=== PATIENT | male | born 1965 | race Two or more races ===

== ENCOUNTER 2019-12-07 11:12 | Outpatient (REF) | payer MEDICAID, SELFPAY ==
[2019-12-07 11:56] LABS: MANUAL DIFF FLAG NO
[2019-12-07 12:07] LABS: Basophils Absolute Auto 0.1 X10*3/uL (0.0-0.2); Basophils Percent Auto 0.5 % (0-2); Eosinophils Absolute Auto 0.2 X10*3/uL (0.0-0.4); Eosinophils Percent Auto 2.2 % (0-4); Hematocrit 32.7 % (42-52); Hemoglobin 10.1 g/dl (14.0-18.0); Imm Gran Abs Auto 0.03 X10*3/uL (0.00-0.03); Imm Gran Pct Auto 0.3 % (0.0-0.4); Lymphocytes Absolute Auto 2.4 X10*3/uL (1.2-4.9); Lymphocytes Percent Auto 21.6 % (20-40); Mean Corpuscular HGB Conc 30.9 g/dl (31.0-36.0); Mean Corpuscular Hemoglobin 25.3 pg (27.0-33.0); Mean Platelet Volume 10.7 fL (9.4-12.4); Monocytes Absolute Auto 0.7 X10*3/uL (0.1-1.2); Monocytes Percent Auto 6.3 % (2-11); Neutrophils Absolute Auto 7.5 X10*3/uL (2.0-8.3); Neutrophils Percent Auto 69.1 % (45-73); Platelet Count 385 X10*3/uL (160-400); Red Blood Count 3.99 X10*6/uL (4.60-5.80); Red Cell Distribution Width 14.7 % (11.0-16.0); White Blood Count 10.9 X10*3/uL (4.8-10.8)
[2019-12-07 12:08] LABS: Estimated Average Glucose 154 mg/dL
[2019-12-07 12:29] LABS: Alanine Aminotransferase 13 U/L (0-40); Albumin Level 4.3 g/dL (3.5-5.0); Alkaline Phosphatase 99 U/L (39-117); Anion Gap 14 (12-20); Aspartate Amino Transferase 14 U/L (5-37); Bilirubin Direct < 0.2 mg/dL (0.0-0.5); Bilirubin Total 0.5 mg/dL (0.0-1.0); Blood Urea Nitrogen 22 mg/dL (9-16); Calcium 9.2 mg/dL (8.4-10.2); Carbon Dioxide 26 mmol/L (22-29); Chloride 103 mmol/L (96-108); Cholesterol 198 mg/dL; Estimated Glomerular Filt Rate 41; Glucose Random 119 mg/dL (60-115); HDL Cholesterol 36 mg/dL; LDL Cholesterol Calculated 130 mg/dl; Potassium 4.3 mmol/l (3.3-5.1); Sodium 139 mmol/L (135-145); Total Protein 7.6 g/dL (6.5-8.0); Triglycerides 160 mg/dL
== END 2019-12-07 11:13 | disposition home or self-care (01) ==
LOC: HO.LAB 11:12
PROVIDERS: PCP Internal Medicine; Visit Provider Internal Medicine
DX: E11.9 Type 2 diabetes mellitus without complications (principal)
CPT/HCPCS: 36415; 80048; 80061; 80076; 83036; 85025

== ENCOUNTER → 2019-12-14 10:07 | Outpatient (BNVA) | payer MEDICAID, SELFPAY | PROVIDERS: PCP Internal Medicine; Visit Provider Nurse Practitioner Gerontology | DX: E11.65 Type 2 diabetes mellitus with hyperglycemia (principal); E11.319 Type 2 diabetes mellitus with unspecified diabetic retinopathy without macular edema; Z79.4 Long term (current) use of insulin; E78.5 Hyperlipidemia, unspecified; I10 Essential (primary) hypertension; E04.9 Nontoxic goiter, unspecified; E66.01 Morbid (severe) obesity due to excess calories; Z68.41 Body mass index [BMI] 40.0-44.9, adult | CPT/HCPCS: 82947; 99212 ==

== ENCOUNTER 2019-12-14 11:52 | Outpatient (REF) | payer MEDICAID, SELFPAY ==
[2019-12-14 15:00] LABS: Free T4 (Free Thyroxine) 0.82 ng/dL (0.71-1.85)
[2019-12-15 17:51] LABS: Thyroglobulin Antibodies <1 IU/mL (< or = 1); Thyroid Peroxidase Antibodies 1 IU/mL (<9)
== END 2019-12-14 11:53 | disposition home or self-care (01) ==
LOC: HO.10HDL 11:52
PROVIDERS: Visit Provider Nurse Practitioner Gerontology
DX: E04.9 Nontoxic goiter, unspecified (principal)
CPT/HCPCS: 36415; 84439; 84443; 86376; 86800

== ENCOUNTER → 2020-01-25 09:56 | Outpatient (BNVA) | payer MEDICAID, SELFPAY | PROVIDERS: PCP Internal Medicine; Visit Provider Nurse Practitioner | DX: Z76.89 Persons encountering health services in other specified circumstances (principal) ==

== ENCOUNTER → 2020-03-21 14:24 | Outpatient (BNVA) | payer MEDICAID, SELFPAY | PROVIDERS: PCP Internal Medicine; Visit Provider Nurse Practitioner ==

== ENCOUNTER → 2020-03-22 09:50 | Outpatient (BNVA) | payer MEDICAID, SELFPAY | PROVIDERS: PCP Internal Medicine; Visit Provider Nurse Practitioner Gerontology ==

== ENCOUNTER 2020-04-08 11:14 | Emergency (ER) | payer MEDICAID, SELFPAY ==
--- NOTE | ~2020-04-08 | XR_ITS ---
EXAMINATION: XR KNEE, RIGHT CLINICAL INFORMATION: Pain COMPARISON: Previous x-ray most recent March 2018 TECHNIQUE: Four views of the right knee. FINDINGS: There is a 3 component right knee replacement. There may be slight depression of the medial tibial component. There is cortical thickening and periosteal reaction of the medial tibial metaphysis that is slightly increased from previous exam. There is an old healed fracture of the right proximal fibular shaft that is unchanged. There is no appreciable joint effusion. XR/XR knee RT 4V IMPRESSION: Right knee replacement. There may be slight interval increase in depression of the medial tibia compared to previous exam. There is cortical thickening and periosteal reaction of the medial tibial metaphysis that is increased. Old healed fracture of the proximal fibular shaft that is unchanged.
[2020-04-08 11:29] VITALS: BP 140/76; PULSE 89; RESP 17; TEMP 36.7; O2SAT 95; BMI 34.0
--- NOTE | 2020-04-08 12:02 | ED.LOWEXIN ---
HPI - Extremity Injury (Lower) General Chief Complaint: Extremity Injury, Lower Stated Complaint: rt knee pain Time Seen by Provider: 04/08/20 11:27 History of Present Illness HPI Narrative: Patient complains of pain in the right knee that has been worsening steadily over the last several weeks and now it is waking him up at night and is severe, he has history of right knee replacement which was not successful so he has had pain in that knee for many months, no new injury no redness no swelling no fever, pain is moderate Related Data Home Medications Medication Instructions Recorded Confirmed albuterol (refill) 90 mcg INHALATION 12/14/19 03/22/20 mcg/actuation aerosol inhaler albuterol sulfate 2.5 mg INHALATION QID 12/14/19 03/22/20 amlodipine 10 mg tablet 10 mg PO DAILY 12/14/19 03/22/20 atorvastatin 20 mg tablet 20 mg PO DAILY 12/14/19 03/22/20 carvedilol 25 mg tablet 25 mg PO BID 12/14/19 03/22/20 chlorthalidone 25 mg tablet 25 mg PO DAILY 12/14/19 03/22/20 duloxetine 60 mg capsule,delayed 60 mg PO DAILY 12/14/19 03/22/20 release ergocalciferol (vitamin D2) 50,000 50,000 unit PO .weekly tab 12/14/19 03/22/20 unit tablet furosemide 20 mg tablet 20 mg PO DAILY 12/14/19 03/22/20 gabapentin 100 mg capsule 100 mg PO DAILY 12/14/19 03/22/20 lancets 33 gauge #100 ea 12/14/19 03/22/20 lisinopril 10 mg tablet 10 mg PO DAILY 12/14/19 03/22/20 loratadine 10 mg capsule 10 mg PO DAILY 12/14/19 03/22/20 prazosin 2 mg capsule 2 mg PO BID 12/14/19 03/22/20 quetiapine 300 mg tablet,extended 300 mg PO DAILY 12/14/19 03/22/20 release 24 hr rivaroxaban 2.5 mg tablet 2.5 mg PO BID 12/14/19 03/22/20 topiramate 50 mg tablet 50 mg PO BID 12/14/19 03/22/20 trazodone 150 mg tablet 150 mg PO DAILY 11/05/20 02/12/21 acetaminophen 500 mg tablet 500 mg PO Q6H PRN 03/22/20 03/22/20 oxycodone 5 mg capsule 5 mg PO BID PRN 03/22/20 03/22/20 Previous Rx's Medication Instructions Recorded simethicone 180 mg capsule 180 mg PO QID 30 Days #120 cap 01/25/20 calcium carb 800 mg-magnes hydrox 10 ml PO TID PRN #355 ml 03/21/20 270 mg-simeth 80 mg/10 mL oral susp pantoprazole 20 mg tablet,delayed 20 mg PO DAILY 30 Days #30 tab 03/21/20 release plecanatide 3 mg tablet 3 mg PO DAILY #30 tab 03/21/20 dulaglutide 1.5 mg/0.5 mL 1.5 mg SUBCUT QWEEK 28 Days #2 ml 03/26/20 subcutaneous pen injector insulin glargine 100 unit/mL (3 45 unit SUBCUT QAM #15 ml 03/28/20 mL) subcutaneous pen oxycodone 5 mg PO Q6H PRN #14 cap 04/08/20 Allergies Allergy/AdvReac Type Severity Reaction Status Date / Time shellfish derived Allergy Severe SWOLLEN Verified 04/08/20 11:32 THROAT egg [Egg] Allergy Intermediate HIVES Verified 04/08/20 11:32 lisinopril [Lisinopril] Allergy Mild UNKNOWN Verified 04/08/20 11:32 nifedipine [From Procardia] Allergy Mild UNKNOWN Verified 04/08/20 11:32 Penicillins Allergy Mild RASH Verified 04/08/20 11:32 apple [Apple] Allergy Unknown SWELLING Verified 04/08/20 11:32 influenza virus vaccine, Allergy Unknown SWELLING Verified 04/08/20 11:32 specific [Influenza Virus Vacc,Specific] Review of Systems Review of Systems: Positive for right knee pain negatives are fevers chills dizziness weakness chest pain shortness of breath there is no calf pain no leg swelling no calf swelling no numbness no weakness no rash PMFSH Past Medical History Source: nursing notes reviewed Medical History Angina of effort Asthma Blind right eye Cancer of eye CHF (congestive heart failure) Chronic kidney disease, stage 3 Essential hypertension GERD (gastroesophageal reflux disease) Hemiparesis affecting left side as late effect of cerebrovascular accident Hemiplegia affecting dominant side History of poliomyelitis Hyperlipidemia LDL goal <70 Left ventricular hypertrophy Mood disorder Morbid obesity Nasal polyps Obesity due to excess calories ARTEM (obstructive sleep apnea) Other pulmonary embolism and infarction Positive PPD Syncope Type 2 diabetes mellitus with hyperglycemia, with long-term current use of insulin Type 2 diabetes mellitus with polyneuropathy Surgical History History of cardiac catheterization History of coronary artery stent placement History of esophagogastroduodenoscopy (EGD) Hx of knee surgery Family History Family History Father Stroke Brain cancer CVD (cardiovascular disease) Diabetes Mother Diabetes Social History Social History 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 Alcohol intake: current Alcohol intake frequency: does not drink Smoking Status: Never smoker Advance Directives: No Advance Directives Information Provided: No Physical Exam Vital Signs: Vital Signs: Last Vital Signs Temp 98.0 F 04/08/20 11:29 Pulse 89 04/08/20 11:29 Resp 17 04/08/20 11:29 BP 140/76 H 04/08/20 11:29 Pulse Ox 95 04/08/20 11:29 Body Mass Index 34.0 General appearance no distress Head is normocephalic atraumatic The neck is supple Respiratory no distress Right knee is normal color, it extends to 188 flexes to about 90 there is no obvious swelling there is no redness or warmth there is no obvious effusion, it is neurovascular intact, there is no calf tenderness or swelling no posterior leg tenderness, neurovascular intact distal Skin is no rash Neuro no focal deficits Course Course Course Narrative: X-ray of right knee is reviewed with no acute findings, patient is advised to follow with orthopedics for re-evaluation of right knee replacement Discharge Plan Discharge Clinical Impression: Arthralgia of right knee Patient Disposition: Home, Self-Care Additional Instructions: Follow with orthopedist and her doctor for further evaluation, and to discuss possible referral to pain management for control of chronic knee pain Return any time any worse condition or concerns It is safe to take 2 oxycodone if 1 does not relieve pain Prescriptions: New oxycodone 5 mg capsule 5 mg PO Q6H PRN (Reason: pain) Qty: 14 RF: 0 No Action Trulicity 1.5 mg/0.5 mL pen injector 1.5 mg subcut QWEEK 28 Days Qty: 2 RF: 5 insulin glargine [Lantus Solostar U-100 Insulin] 100 unit/mL (3 mL) insulin pen 45 unit subcut QAM Qty: 15 RF: 4 loratadine 10 mg capsule 10 mg PO DAILY RF: 0 topiramate 50 mg tablet 50 mg PO BID RF: 0 quetiapine 300 mg tablet extended release 24 hr 300 mg PO DAILY RF: 0 duloxetine 60 mg capsule,delayed release(DR/EC) 60 mg PO DAILY RF: 0 Xarelto 2.5 mg tablet 2.5 mg PO BID RF: 0 (DME) lancets [TRUEplus Lancets] 33 gauge misc See Rx Instructions .ROUTE .MEDSUPPLY Qty: 100 RF: 0 atorvastatin 20 mg tablet 20 mg PO DAILY RF: 0 ergocalciferol (vitamin D2) 50,000 unit tablet 50,000 unit PO .weekly RF: 0 furosemide 20 mg tablet 20 mg PO DAILY RF: 0 gabapentin 100 mg capsule 100 mg PO DAILY RF: 0 lisinopril 10 mg tablet 10 mg PO DAILY RF: 0 carvedilol 25 mg tablet 25 mg PO BID RF: 0 amlodipine 10 mg tablet 10 mg PO DAILY RF: 0 chlorthalidone 25 mg tablet 25 mg PO DAILY RF: 0 trazodone 150 mg tablet 150 mg PO DAILY RF: 0 albuterol (refill) 90 mcg/actuation aerosol inhalation RF: 0 albuterol sulfate 2.5 mg /3 mL (0.083 %) solution for nebulization 2.5 mg inhalation QID RF: 0 prazosin 2 mg capsule 2 mg PO BID RF: 0 oxycodone 5 mg capsule 5 mg PO BID PRNRF: 0 acetaminophen [Tylenol Extra Strength] 500 mg tablet 500 mg PO Q6H PRNRF: 0 simethicone 180 mg capsule 180 mg PO QID 30 Days Qty: 120 RF: 3 pantoprazole 20 mg tablet,delayed release (DR/EC) 20 mg PO DAILY 30 Days Qty: 30 RF: 6 Trulance 3 mg tablet 3 mg PO DAILY Qty: 30 RF: 6 Mylanta Tonight 800-270-80 mg/10 mL suspension 10 ml PO TID PRN (Reason: stomach upset) Qty: 355 RF: 6 Interventions: ED Discharge Assessment Last Done: 04/08/20 12:37 Discharge Date/Time: 04/08/20 12:38
== END 2020-04-08 12:38 | disposition home or self-care (01) ==
PROVIDERS: Emergency Provider Emergency Medicine; PCP Internal Medicine
DX: M25.561 Pain in right knee (principal); E11.22 Type 2 diabetes mellitus with diabetic chronic kidney disease; I13.0 Hypertensive heart and chronic kidney disease with heart failure and stage 1 through stage 4 chronic kidney disease, or unspecified chronic kidney disease; N18.30 Chronic kidney disease, stage 3 unspecified; I50.9 Heart failure, unspecified; Z96.651 Presence of right artificial knee joint; Z79.4 Long term (current) use of insulin
CPT/HCPCS: 73564; 99283

== ENCOUNTER 2020-04-17 16:27 | Outpatient (REF) | payer MEDICAID, SELFPAY ==
--- NOTE | ~2020-04-17 | US_ITS ---
EXAMINATION: US VENOUS ULTRASOUND WITH DOPPLER LOWER EXTREMITY, RIGHT CLINICAL INFORMATION: Right lower extremity edema and pain COMPARISON: None TECHNIQUE: Ultrasound of the deep veins is performed from the hip to the calf with compression sonography and color and pulse Doppler assessment. Spectral analysis with color-flow imaging is performed. FINDINGS: There is normal venous compression and respiratory variation and augmented flow. The visualized common femoral vein, superficial femoral vein, profunda femoral vein, popliteal vein, and the trifurcation region shows no evidence of deep venous thrombosis. There is no significant popliteal fossa cyst. The contralateral left common femoral vein appears normal. If the patient's symptoms persist, followup ultrasound in 5 days 7 days might be of value to exclude proximal propagation from a non-visualized calf vein. US/US venous duplex LE RT IMPRESSION: No DVT demonstrated in the right lower extremity.
== END 2020-04-17 16:28 | disposition home or self-care (01) ==
LOC: HO.US 16:27
PROVIDERS: Visit Provider Internal Medicine
DX: M79.661 Pain in right lower leg (principal)
CPT/HCPCS: 93971

== ENCOUNTER 2020-04-22 10:37 | Outpatient (REF) | payer MEDICAID, SELFPAY ==
--- NOTE | ~2020-04-22 | US_ITS ---
EXAMINATION: US THYROID CLINICAL INFORMATION: Nontoxic goiter, unspecified. COMPARISON: None TECHNIQUE: Linear transducer mcintyre-scale and color Doppler examination with attention to the region of the thyroid. FINDINGS: SIZE: Thyroid is normal in size and symmetric. Measurements of the thyroid lobes and nodules are given in sagittal, anteroposterior and transverse dimensions respectively. Right Thyroid Lobe: 5.8 x 1.3 x 1.9 cm, volume 7.2 mL. Parenchyma: The gland echotexture is homogeneous. Thyroid vascularity is normal. Left Thyroid Lobe: 5.3 x 1.4 x 1.7 cm, volume 6.4 mL. Parenchyma: The gland echotexture is homogeneous. Thyroid vascularity is normal. Isthmus: 0.3 cm in maximum AP dimension. Estimated total number of nodules greater than or equal to 1 cm: 1. Dry Sand Molder nodules are described as follows: 1. Location: Isthmus. Size: 1.1 x 0.6 x 0.8 cm, volume 0.3 mL. Nodule characteristics: Composition: Solid (2). Echogenicity: Hypoechoic (2). Shape: Not taller than wide (0). Margins: Smooth (0). Echogenic Foci: None (0). ACR TI-RADS total points: 4 ACR TI-RADS category: 4 NODES: No lymphadenopathy is seen in the tissue surrounding the thyroid gland. US/US thyroid IMPRESSION: 1. Solitary nodule isthmus 1.1 cm, TI-RADS Category 4. 2. Recommend follow-up ultrasound in 12 months. ACR TI-RADS RECOMMENDATION REFERENCE: Ultrasound-guided fine-needle aspiration, followup ultrasound, no further follow up. * TR1 (0 point) and TR 2 (2 points): No FNA or follow up * TR3 (3 points): FNA if more than or equal to 2.5 cm in maximum dimension, followup ultrasound in 1, 3 and 5 years if 1.5 to 2.4 cm in maximum dimension. * TR4 (4-6 points): FNA if more than or equal to 1.5 cm in maximum dimension, followup ultrasound in 1, 2, 3 and 5 years if 1 to 1.4 cm in maximum dimension. * TR5 (more than or equal to 7 points): FNA if more than or equal to 1 cm in maximum dimension, followup ultrasound every year for 5 years if 0.5 to 0.9 cm in maximum dimension. * TR3, TR4 or TR5 nodules that are below the size threshold for follow up receive no follow up.
== END 2020-04-22 10:38 | disposition home or self-care (01) ==
LOC: HO.US 10:37
PROVIDERS: PCP Internal Medicine; Visit Provider Nurse Practitioner Gerontology
DX: E04.9 Nontoxic goiter, unspecified (principal)
CPT/HCPCS: 76536

== ENCOUNTER 2020-05-02 08:08 | Outpatient (REF) | payer MEDICAID, SELFPAY ==
--- NOTE | ~2020-05-02 | XR_ITS ---
EXAMINATION: XR KNEE AP STANDING CLINICAL INFORMATION: Knee pain COMPARISON: 04/08/2020 of the right knee TECHNIQUE: Single AP standing views of both knees FINDINGS: There is degenerative change of the lateral joint space compartment of the left knee with some marginal spurring. Patient status post right total knee arthroplasty. Prosthetic components appear in good position. No evidence of loosening on the provided image. Deformity from previous proximal right fibular fracture evident. XR/XR knee standing BI IMPRESSION: Degenerative change of the left knee lateral joint space compartment. Status post right total knee arthroplasty without significant abnormality appreciated.
== END 2020-05-02 08:09 | disposition home or self-care (01) ==
LOC: HO.HOSX 08:08
PROVIDERS: Visit Provider Orthopaedic Surgery
DX: G89.29 Other chronic pain (principal); R53.1 Weakness; E11.42 Type 2 diabetes mellitus with diabetic polyneuropathy; Z96.651 Presence of right artificial knee joint; Z86.12 Personal history of poliomyelitis
CPT/HCPCS: 73565; 99202

== ENCOUNTER → 2020-05-06 14:18 | Outpatient (BNVA) | payer MEDICAID, SELFPAY | PROVIDERS: PCP Internal Medicine; Visit Provider Nurse Practitioner Family | DX: E11.42 Type 2 diabetes mellitus with diabetic polyneuropathy (principal); Z86.12 Personal history of poliomyelitis; Z96.651 Presence of right artificial knee joint | CPT/HCPCS: 99202 ==

== ENCOUNTER 2020-07-16 07:32 | Outpatient (REF) | payer MEDICAID, SELFPAY | END 2020-07-16 07:33 | disposition home or self-care (01) | LOC: HO.RADIR 07:32 | PROVIDERS: Visit Provider Anesthesiology | DX: Z13.89 Encounter for screening for other disorder (principal) ==

== ENCOUNTER → 2020-07-23 14:00 | Outpatient (BNVA) | payer MEDICAID, SELFPAY | PROVIDERS: PCP Internal Medicine; Visit Provider Nurse Practitioner Family ==

== ENCOUNTER 2020-07-29 08:15 | Outpatient (REF) | payer MEDICAID, SELFPAY ==
--- NOTE | ~2020-07-29 | CT_ITS ---
EXAMINATION: CT HEAD WITHOUT CONTRAST CLINICAL INFORMATION: Daily persistent headache COMPARISON: Previous head CT most recent July 2018 TECHNIQUE: Contiguous axial imaging was performed from the skull base to vertex without intravenous administration of contrast. This CT examination was performed using dose optimization techniques as appropriate, variously including the following: *Automated exposure control *Adjustment of mA and/or kV according to patient size (this includes techniques or standardized protocols for targeted exams where dose is matched to indication/reason for exam; i.e. extremities or head) *Use of iterative reconstruction technique DLP: 894 mGy-cm FINDINGS: There is no evidence of an extra-axial collection. There is no evidence of intra-or extra-axial hemorrhage. Ventricles and extra-axial CSF spaces are appropriate. Whiteside-white matter differentiation is normal. 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 No mass, mass effect or infarct is acute seen. There are inflammatory changes seen in the bilateral frontal, ethmoid maxillary sinuses. Mastoid air cells and middle ears are clear. No skull fracture is seen. 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 CT/CT head/brain wo con IMPRESSION: No acute findings. Old left cerebellar infarct similar to previous exams. Inflammatory changes in the bilateral frontal, ethmoid and maxillary sinuses.
== END 2020-07-29 08:16 | disposition home or self-care (01) ==
LOC: HO.CT 08:15
PROVIDERS: PCP Internal Medicine; Visit Provider Internal Medicine
DX: G44.52 New daily persistent headache (NDPH) (principal); R11.0 Nausea
CPT/HCPCS: 70450

== ENCOUNTER → 2020-08-09 11:16 | Outpatient (BNVA) | payer MEDICAID, SELFPAY | PROVIDERS: PCP Internal Medicine; Visit Provider Internal Medicine Endocrinology, Diabetes & Metabolism | DX: E04.1 Nontoxic single thyroid nodule (principal); R13.10 Dysphagia, unspecified | CPT/HCPCS: 99212 ==

== ENCOUNTER 2020-08-14 10:24 | Outpatient (REF) | payer MEDICAID, SELFPAY ==
--- NOTE | ~2020-08-14 | FL_ITS ---
EXAMINATION: FL BARIUM SWALLOW CLINICAL INFORMATION: R13.10 - Dysphagia, unspecified COMPARISON: Thyroid ultrasound 04/22/2020, CTA chest 08/28/2016 TECHNIQUE: Barium swallow examination is performed using fluoroscopic evaluation in addition to multiple fluoroscopic spot views, including cine images during swallowing. The patient is imaged both upright and prone and using both thick and thin sulfate along with effervescent granules. Fluoroscopy time: 0.9 minutes DAP: 5.837 Gycm2 Images: 41 (includes cine images) FINDINGS: Swallowing function is normal and there is no aspiration. The cervical esophagus has no web or diverticulum or stricture. The cervical thoracic junction appears normal. The thoracic esophagus shows normal motility with no obstruction, stricture, or ulceration. No tertiary contractions. There is no hiatal hernia or reflux seen despite use of provocative maneuvers (prone Valsalva and water siphon test, respectively). FL/FL barium swallow IMPRESSION: Normal study.
== END 2020-08-14 10:25 | disposition home or self-care (01) ==
LOC: HO.XRAY 10:24
PROVIDERS: PCP Registered Nurse; Visit Provider Internal Medicine Endocrinology, Diabetes & Metabolism
DX: R13.10 Dysphagia, unspecified (principal); E04.1 Nontoxic single thyroid nodule
CPT/HCPCS: 74220

== ENCOUNTER 2020-08-20 05:48 | Outpatient (REF) | payer MEDICAID, SELFPAY ==
--- NOTE | ~2020-08-20 | FL_ITS ---
EXAMINATION: XR FLUOROSCOPY WITH IMAGES CLINICAL INFORMATION: Pain COMPARISON: None. TECHNIQUE: Fluoroscopy performed by Sherri Rivera NP. Fluoroscopy time: 0.2 minutes DAP: 1.5 Gycm2 Images: 6 FINDINGS: Fluoroscopy guidance was provided for geniculate nerve block. There is a right knee replacement. FL/FL guidance in treatment room IMPRESSION: Fluoroscopy guidance for right geniculate nerve block.
== END 2020-08-20 05:49 | disposition home or self-care (01) ==
LOC: HO.RADIR 05:48
PROVIDERS: Visit Provider Anesthesiology
DX: M25.561 Pain in right knee (principal); E11.42 Type 2 diabetes mellitus with diabetic polyneuropathy; Z86.12 Personal history of poliomyelitis; Z96.651 Presence of right artificial knee joint
CPT/HCPCS: 64454

== ENCOUNTER → 2020-08-27 10:47 | Outpatient (BNVA) | payer MEDICAID, SELFPAY | PROVIDERS: PCP Internal Medicine; Visit Provider Nurse Practitioner Family | DX: E11.42 Type 2 diabetes mellitus with diabetic polyneuropathy (principal); Z86.12 Personal history of poliomyelitis; Z96.651 Presence of right artificial knee joint; Z79.899 Other long term (current) drug therapy | CPT/HCPCS: 99212 ==

== ENCOUNTER → 2020-09-19 09:01 | Outpatient (BNVA) | payer MEDICAID, SELFPAY | PROVIDERS: PCP Internal Medicine; Visit Provider Nurse Practitioner | CPT/HCPCS: 99212 ==

== ENCOUNTER 2020-11-07 08:46 | Day surgery (SDC) | payer MEDICAID, SELFPAY ==
[2020-11-04 10:23] VITALS: BMI 38.4
[2020-11-04 11:22] VITALS: BMI 38.4
--- NOTE | 2020-11-04 12:33 | P.CONAN_ITS ---
Documented by User: Jaja Casarez NP 11/11/20 08:33 HPI - Anesthesia Eval Consult details Narrative: 55yo M for Colonoscopy Followed at [facility] for headaches/vision loss - Per 09/2020 visit: all diagnostic work up negative, dx of medically unexplained visual loss, no permane nt damage to eyes and vision may return *Multiple allergies* >1 year since seeing cardiology. Denies CP/SOB/swelling per phone eval. Limited activity at baseline. Stable at PCP visit 10/2020 Recent labs at [facility] - to be faxed over [facility] Active Problems Active Problems: All Active Problems (Updated 09/19/20 @ 10:16 by HELENE Menchaca) Chronic kidney disease, stage 3 (Acute) Morbid obesity (Acute) ARTEM (obstructive sleep apnea) (Acute) Mood disorder (Acute) CHF (congestive heart failure) (Acute) Colon cancer screening (Acute) Dysphagia (Acute) Uninodular goiter (nontoxic) (Acute) Right knee pain (Acute) Chronic pain (Acute) History of right knee joint replacement (Acute) History of poliomyelitis (Acute) Type 2 diabetes mellitus with polyneuropathy (Acute) Persistent headaches (Acute) GERD (gastroesophageal reflux disease) (Acute) Upper abdominal pain (Acute) H. pylori infection (Acute) Chronic idiopathic constipation (Acute) Obesity due to excess calories (Acute) Type 2 diabetes mellitus with hyperglycemia, with long-term current use of insulin (Acute) Hyperlipidemia LDL goal <70 (Acute) Essential hypertension (Acute) Goiter (Acute) Past Medical History Medical History Angina of effort Asthma Blind right eye Cancer of eye CHF (congestive heart failure) Chronic kidney disease, stage 3 Chronic pain Dysphagia Essential hypertension GERD (gastroesophageal reflux disease) Hemiparesis affecting left side as late effect of cerebrovascular accident Hemiplegia affecting dominant side History of poliomyelitis Hyperlipidemia LDL goal <70 Left ventricular hypertrophy Mood disorder Morbid obesity Nasal polyps Obesity due to excess calories ARTEM (obstructive sleep apnea) Other pulmonary embolism and infarction Positive PPD Syncope Type 2 diabetes mellitus with hyperglycemia, with long-term current use of insulin Type 2 diabetes mellitus with polyneuropathy Uninodular goiter (nontoxic) Family History Family History Father Stroke Brain cancer CVD (cardiovascular disease) Diabetes Mother Diabetes Surgical History Surgical History History of cardiac catheterization History of coronary artery stent placement History of esophagogastroduodenoscopy (EGD) History of right knee joint replacement Hx of knee surgery Social History Social History 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 Alcohol intake: current Alcohol intake frequency: does not drink Patient Tobacco Use Status: Never used Tobacco Advance Directives Date on File: 08/27/10 Meds Allergies Allergy/AdvReac Type Severity Reaction Status Date / Time shellfish derived Allergy Severe SWOLLEN Verified 09/19/20 09:01 THROAT apple [Apple] Allergy Intermediate SWELLING Verified 11/04/20 10:23 egg [Egg] Allergy Intermediate HIVES Verified 09/19/20 09:01 influenza virus vaccine, Allergy Intermediate SWELLING Verified 11/04/20 10:23 specific [Influenza Virus Vacc,Specific] Penicillins Allergy Mild RASH Verified 09/19/20 09:01 lisinopril [Lisinopril] Allergy Unknown UNKNOWN Verified 11/04/20 10:23 nifedipine [From Procardia] Allergy Unknown UNKNOWN Verified 11/04/20 10:23 Home Medications Medication Instructions Recorded Confirmed Last Taken Type albuterol (refill) 90 90 mcg INHALATION Q4-6H PRN 12/14/19 11/04/20 Unknown History mcg/actuation aerosol inhaler albuterol sulfate 2.5 mg INHALATION QID 12/14/19 11/04/20 Unknown History amlodipine 10 mg tablet 10 mg PO DAILY 12/14/19 11/04/20 Unknown History atorvastatin 20 mg tablet 20 mg PO DAILY 12/14/19 11/04/20 Unknown History carvedilol 25 mg tablet 25 mg PO BID 12/14/19 11/04/20 Unknown History chlorthalidone 25 mg tablet 25 mg PO DAILY 12/14/19 11/04/20 Unknown History duloxetine 60 mg capsule,delayed 60 mg PO DAILY 12/14/19 11/04/20 Unknown History release ergocalciferol (vitamin D2) 50,000 50,000 unit PO .weekly tab 12/14/19 11/04/20 Unknown History unit tablet furosemide 20 mg tablet 20 mg PO DAILY 12/14/19 11/04/20 Unknown History gabapentin 100 mg capsule 100 mg PO DAILY 12/14/19 11/04/20 Unknown History lancets 33 gauge (TRUEplus Lancets) #100 ea 12/14/19 08/09/20 Unknown History lisinopril 10 mg tablet 10 mg PO DAILY 12/14/19 11/04/20 Unknown History loratadine 10 mg capsule 10 mg PO DAILY 12/14/19 11/04/20 Unknown History prazosin 2 mg capsule 2 mg PO BID 12/14/19 11/04/20 Unknown History quetiapine 300 mg tablet,extended 300 mg PO DAILY 12/14/19 11/04/20 Unknown History release 24 hr rivaroxaban 2.5 mg tablet (Xarelto) 2.5 mg PO BID 12/14/19 11/07/20 11/04/20 History topiramate 50 mg tablet 50 mg PO BID 12/14/19 11/04/20 Unknown History trazodone 150 mg tablet 150 mg PO DAILY 12/14/19 11/04/20 Unknown History acetaminophen 500 mg tablet 500 mg PO Q6H PRN 03/22/20 11/04/20 Unknown History (Tylenol Extra Strength) butalbital 50 mg-acetaminophen 325 1 cap PO Q4H PRN 08/09/20 11/04/20 Unknown History mg-caffeine 40 mg-codeine 30 mg cap prednisone 20 mg tablet 20 mg PO DAILY 08/09/20 11/04/20 Unknown History Exam Exam Date and Time: November 04, 2020 1233 Height,Weight and Vital Signs: Height 5 ft 4 in Weight 101.605 kg Narrative Narrative: EKG 02/2019 Sinus Tach @ 102 Otherwise normal Holter 06/2019 Basic rhythm Normal sinus Frequent sinus tach, 57% of time HR > 100bpm No dangerous dysrhythm periods Echo 06/2019 Nml LV systolic function with Gr 1 DD with mild LVH Nml cardiac valvular doppler Nml RV systolic pressure No pericardial effusion Assessment and Plan Assessment Anesthesia Assessment: Chart Reviewed Documented by User: Jose Rutherford MD 11/12/20 08:03 [facility] Past Medical History Medical History Angina of effort Asthma Blind right eye Cancer of eye CHF (congestive heart failure) Chronic kidney disease, stage 3 Chronic pain Dysphagia Essential hypertension GERD (gastroesophageal reflux disease) Hemiparesis affecting left side as late effect of cerebrovascular accident Hemiplegia affecting dominant side History of poliomyelitis Hyperlipidemia LDL goal <70 Left ventricular hypertrophy Mood disorder Morbid obesity Nasal polyps Obesity due to excess calories ARTEM (obstructive sleep apnea) Other pulmonary embolism and infarction Positive PPD Syncope Type 2 diabetes mellitus with hyperglycemia, with long-term current use of insulin Type 2 diabetes mellitus with polyneuropathy Uninodular goiter (nontoxic) Family History Family History Father Stroke Brain cancer CVD (cardiovascular disease) Diabetes Mother Diabetes Family history of problems with anesthesia: No Surgical History Surgical History History of cardiac catheterization History of coronary artery stent placement History of esophagogastroduodenoscopy (EGD) History of right knee joint replacement Hx of knee surgery History of Problems with Anesthesia: No Social History Social History 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 Alcohol intake: current Alcohol intake frequency: does not drink Patient Tobacco Use Status: Never used Tobacco Advance Directives Date on File: 08/27/10 Meds Allergies Allergy/AdvReac Type Severity Reaction Status Date / Time shellfish derived Allergy Severe SWOLLEN Verified 09/19/20 09:01 THROAT apple [Apple] Allergy Intermediate SWELLING Verified 11/04/20 10:23 egg [Egg] Allergy Intermediate HIVES Verified 09/19/20 09:01 influenza virus vaccine, Allergy Intermediate SWELLING Verified 11/04/20 10:23 specific [Influenza Virus Vacc,Specific] Penicillins Allergy Mild RASH Verified 09/19/20 09:01 lisinopril [Lisinopril] Allergy Unknown UNKNOWN Verified 11/04/20 10:23 nifedipine [From Procardia] Allergy Unknown UNKNOWN Verified 11/04/20 10:23 Home Medications Medication Instructions Recorded Confirmed Last Taken Type albuterol (refill) 90 90 mcg INHALATION Q4-6H PRN 12/14/19 11/04/20 Unknown History mcg/actuation aerosol inhaler albuterol sulfate 2.5 mg INHALATION QID 12/14/19 11/04/20 Unknown History amlodipine 10 mg tablet 10 mg PO DAILY 12/14/19 11/04/20 Unknown History atorvastatin 20 mg tablet 20 mg PO DAILY 12/14/19 11/04/20 Unknown History carvedilol 25 mg tablet 25 mg PO BID 12/14/19 11/04/20 Unknown History chlorthalidone 25 mg tablet 25 mg PO DAILY 12/14/19 11/04/20 Unknown History duloxetine 60 mg capsule,delayed 60 mg PO DAILY 12/14/19 11/04/20 Unknown H istory release ergocalciferol (vitamin D2) 50,000 50,000 unit PO .weekly tab 12/14/19 11/04/20 Unknown History unit tablet furosemide 20 mg tablet 20 mg PO DAILY 12/14/19 11/04/20 Unknown History gabapentin 100 mg capsule 100 mg PO DAILY 12/14/19 11/04/20 Unknown History lancets 33 gauge (TRUEplus Lancets) #100 ea 12/14/19 08/09/20 Unknown History lisinopril 10 mg tablet 10 mg PO DAILY 12/14/19 11/04/20 Unknown History loratadine 10 mg capsule 10 mg PO DAILY 12/14/19 11/04/20 Unknown History prazosin 2 mg capsule 2 mg PO BID 12/14/19 11/04/20 Unknown History quetiapine 300 mg tablet,extended 300 mg PO DAILY 12/14/19 11/04/20 Unknown History release 24 hr rivaroxaban 2.5 mg tablet (Xarelto) 2.5 mg PO BID 12/14/19 11/07/20 11/04/20 History topiramate 50 mg tablet 50 mg PO BID 12/14/19 11/04/20 Unknown History trazodone 150 mg tablet 150 mg PO DAILY 12/14/19 11/04/20 Unknown History acetaminophen 500 mg tablet 500 mg PO Q6H PRN 03/22/20 11/04/20 Unknown History (Tylenol Extra Strength) butalbital 50 mg-acetaminophen 325 1 cap PO Q4H PRN 08/09/20 11/04/20 Unknown History mg-caffeine 40 mg-codeine 30 mg cap prednisone 20 mg tablet 20 mg PO DAILY 08/09/20 11/04/20 Unknown History Exam Airway Mallampati Class: II TM Dist: >3cm Neck ROM: Full Assessment and Plan Assessment Anesthesia Assessment: Anesthesia Plan Discussed Final Anesthetic Review Family History of Problems with Anesthesia: No History of Problems with Anesthesia: No NPO: Yes ASA Class: III Final Preanesthetic Review: No Changes in Pt Med Stat, Meds/Allgs Chart Reviewed, Consent Obtained/Reviewed and Anes Risks/Benef Reviewed Patient Risk: Intermediate Procedure Risk: Low Anesthetic Plan Anesthetic Plan: MAC: Disposition: Standard PACU
--- NOTE | 2020-11-07 08:58 | MHC.SHP ---
Pre-Procedural Eval Section A Date of Service: 11/07/20 Section B Chief Complaint: Screening Relevant Family History (Specify if Yes): No Relevant Social History: None Present Medications: see Short Stay Collaborative assessment Medical History: Significant History (Angina of effort Asthma Blind right eye Cancer of eye CHF (congestive heart failure) Chronic kidney disease, stage 3 Chronic pain Dysphagia Essential hypertension GERD (gastroesophageal reflux disease) Hemiparesis affecting left side as late effect of cerebrovascular accident Hemiplegia affecting do) History of Previous Operations: Relevant previous surgery/procedure and date(s) (History of cardiac catheterization History of coronary artery stent placement History of esophagogastroduodenoscopy (EGD) History of right knee joint replacement Hx of knee surgery) Allergies: Allergies Allergy/AdvReac Type Severity Reaction Status Date / Time shellfish derived Allergy Severe SWOLLEN Verified 09/19/20 09:01 THROAT apple [Apple] Allergy Intermediate SWELLING Verified 11/04/20 10:23 egg [Egg] Allergy Intermediate HIVES Verified 09/19/20 09:01 influenza virus vaccine, Allergy Intermediate SWELLING Verified 11/04/20 10:23 specific [Influenza Virus Vacc,Specific] Penicillins Allergy Mild RASH Verified 09/19/20 09:01 lisinopril [Lisinopril] Allergy Unknown UNKNOWN Verified 11/04/20 10:23 nifedipine [From Procardia] Allergy Unknown UNKNOWN Verified 11/04/20 10:23 Review of Systems Sugical H&P ROS: Negative: Constitution, Cardiovascular, Respiratory, Neurological, Psychiatric, Hem-Onc, Allergic/Immunologic, Gastrointestinal, Genitourinary, Musculoskeletal, Integumentary, Endocrine and Eyes/Ears/Nose/Throat Exam Surgical H&P Exam: Normal: HEENT, Normal: Heart, Normal: Lungs, Normal: Extremities, Normal: Abdomen, Normal: Skin and Normal: Neurological Plan Diagnosis/Plan: Unchanged I have reviewed the history and physical and performed a pertinent physical examination on my patient. No changes have occurred unless specified.
[2020-11-07 09:32] LABS: Glucose, Whole Blood 120 mg/dL (60-115)
[2020-11-07] MEDS: Lactated Ringers 1,000 ML 50 ML IVCONT (09:32)
[2020-11-07 09:33] VITALS: BP 151/90; PULSE 104; RESP 16; TEMP 36.9; O2SAT 98
--- NOTE | 2020-11-07 10:38 | P.OP_ITS ---
Operative Note Operative Note Date of Service: 11/07/20 Narrative: Operative Information Procedure Description: Colonoscopy COLONOSCOPY Instrument: Olympus variable stiffness pediatric scope 190L Colonoscopy Monitoring: Vital signs and clinical assessment, continuous EKG monitoring, Pulse oximetry, Carbon Dioxide monitoring and blood pressure monitoring were done throughout the procedure. Colon withdrawal time was 14 minutes. Procedure: The patient was placed in the left lateral decubitis position and pre-procedure medications were administered. After a digital rectal examination of the ano-rectum, the video colonoscope was inserted into the rectum and advanced through the colon to the cecum/TI. The colonoscope was slowly withdrawn in a retrograde panoramic fashion and the colon mucosa was carefully examined including a retroflexed view of the rectum. Findings and interventions are described below. Procedure Difficulty: moderate, pressure applied to reach cecum Findings: Terminal Ileum-normal Cecum:normal Ascending Colon: normal Transverse Colon - 6-7 mm sessile polyp removed with cold snare Descending Colon: semi pedunculated polyp 16-18 mm removed with cold snare. x 3 clips applied to bleeding defect with good hemostasis. Polyp retrieved with net. Sigmoid Colon: moderate diverticulosis with hypertrophied mucosa Rectum: Retroflexion with small internal hemorrhoids, grade I Anorectum - normal Colon preparation: [place] Bowel Preparation Scale Right colon; 3 Transverse colon: 3 Left colon; 3 (0 = Unprepared colon segment with mucosa not seen due to solid stool that cannot be cleared. 1 = Portion of mucosa of the colon segment seen, but other areas of the colon segment not well seen due to staining, residual stool and/or opaque liquid. 2 = Minor amount of residual staining, small fragments of stool and/or opaque liquid, but mucosa of colon segment seen well. 3 = Entire mucosa of colon segment seen well with no residual staining, small fragments of stool or opaque liquid) Impression and Post Procedure Diagnosis: polyps internal hemorrhoids diverticular disease Plan: High fiber diet leaflet Avoid straining at stool, epsom salts and sitz bath, anusol supps or cream Repeat Colonoscopy in 3 years due to polyps, specifically the larger the polyp found today or earlier if clinically indicated Above findings were reviewed with the patient and relevant handouts were provided if indicated.
--- NOTE | 2020-11-07 10:38 | PM.OP ---
Brief Operative Note Date of Service: 11/07/20 Pre-op diagnosis: colon screening Post-op diagnosis: same Procedure: see op note Surgeon: Valente Drake MD Anesthesia: MAC Was an Long Chain Beamer used for this Procedure?: No Estimated blood loss (mL): 5 Condition: stable Disposition: PACU
[2020-11-07 10:45] VITALS: BP 145/73; PULSE 98; RESP 18; TEMP 36.9; O2SAT 97
[2020-11-07 11:00] VITALS: BP 166/85; PULSE 86; RESP 18; TEMP 36.2; O2SAT 96
== END 2020-11-07 11:43 | disposition home or self-care (01) ==
PROVIDERS: PCP Registered Nurse; Visit Provider Internal Medicine Gastroenterology
PROC: 0DJD8ZZ Inspection of Lower Intestinal Tract, Via Natural or Artificial Opening Endoscopic (ICD-10-PCS; CPT 45378; principal; 2020-11-07 10:10)
DX: Z12.11 Encounter for screening for malignant neoplasm of colon (principal); D12.3 Benign neoplasm of transverse colon; D12.4 Benign neoplasm of descending colon; K57.30 Diverticulosis of large intestine without perforation or abscess without bleeding; K64.0 First degree hemorrhoids; K59.04 Chronic idiopathic constipation; K21.9 Gastro-esophageal reflux disease without esophagitis; A04.8 Other specified bacterial intestinal infections; R51.9 Headache, unspecified; I13.0 Hypertensive heart and chronic kidney disease with heart failure and stage 1 through stage 4 chronic kidney disease, or unspecified chronic kidney disease; I50.9 Heart failure, unspecified; N18.30 Chronic kidney disease, stage 3 unspecified; E11.22 Type 2 diabetes mellitus with diabetic chronic kidney disease; E66.01 Morbid (severe) obesity due to excess calories; Z79.4 Long term (current) use of insulin; Z79.52 Long term (current) use of systemic steroids; Z79.899 Other long term (current) drug therapy; Z88.0 Allergy status to penicillin; Z88.7 Allergy status to serum and vaccine; Z88.8 Allergy status to other drugs, medicaments and biological substances
CPT/HCPCS: 45385; 82947; 88305

== ENCOUNTER 2020-12-10 08:56 | Outpatient (REF) | payer MEDICAID, SELFPAY ==
--- NOTE | 2020-12-10 | PFT_ITS ---
Forced vital capacity FEV1, [id number] are normal, MVV slightly decreased. Post-bronchodilator therapy, there is no change. Total lung capacity and residual volume normal. Diffusion capacity normal. CONCLUSION: 1. Normal pulmonary function test. No evidence of obstructive or restrictive pulmonary disorder. 2. Slightly decreased MVV may be due to suboptimal effort. 3. Compared to the results of PFT in 2014, there is no significant change. MD KENAN Aguero/MODL / [id number]
== END 2020-12-10 08:57 | disposition home or self-care (01) ==
LOC: HO.RESP 08:56
PROVIDERS: Visit Provider Internal Medicine
DX: J45.20 Mild intermittent asthma, uncomplicated (principal)
CPT/HCPCS: 94060; 94727; 94729

== ENCOUNTER → 2020-12-19 14:17 | Outpatient (BNVA) | payer MEDICAID, SELFPAY | PROVIDERS: PCP Registered Nurse; Referring Provider Registered Nurse; Visit Provider Internal Medicine | DX: Z01.810 Encounter for preprocedural cardiovascular examination (principal); I10 Essential (primary) hypertension; G47.33 Obstructive sleep apnea (adult) (pediatric); J45.909 Unspecified asthma, uncomplicated; R06.02 Shortness of breath; R00.0 Tachycardia, unspecified; R53.81 Other malaise | CPT/HCPCS: 93005; 99212 ==

== ENCOUNTER 2021-01-06 00:36 | Inpatient (IN) | payer MEDICAID, SELFPAY ==
[2021-01-06] VITALS (15 sets, daily range): BP systolic 97–133; BP diastolic 61–81; PULSE 96–124; RESP 14–21; TEMP 36.4–36.9; O2SAT 94–99; BMI 42.9; BMI 40.9
--- NOTE | ~2021-01-06 | CT_ITS ---
EXAM: NONCONTRAST CT OF THE CHEST; NONCONTRAST CT OF THE ABDOMEN AND PELVIS INDICATION: Acute onset epigastric and abdominal pain COMPARISON: 02/01/2017 TECHNIQUE: No IV contrast was utilized. Multidetector helical imaging was performed through the chest, abdomen, and pelvis. Coronal and sagittal reformatted images were created at the technologist workstation. DOSE LOWERING TECHNIQUES: This CT examination was performed using dose optimization techniques as appropriate, variously including the following: - Automated exposure control - Adjustment of mA and/or kV according to patient size (this includes techniques or standardized protocols for targeted exams were dose is matched to indication/reason for exam; i.e. extremities or head) - Use of iterative reconstruction technique DLP: 1204 mGy-cm FINDINGS: Chest: There is elevation of the right hemidiaphragm and regions of subsegmental atelectasis in the basilar right lung. No additional consolidation identified. No pneumothorax or pleural effusion. Visualized thyroid gland is unremarkable. There are subcentimeter mediastinal lymph nodes within the range of normal variation. Cardiac size is within normal limits; no pericardial effusion. Coronary artery calcifications are present. No axillary lymphadenopathy is present. Abdomen/Pelvis: The liver is homogeneous in attenuation without intrahepatic biliary ductal dilatation. Small amount of perihepatic fluid is present. The gallbladder is unremarkable. The unenhanced spleen, pancreas, and adrenal glands are unremarkable. No hydronephrosis. Redemonstrated left renal cysts; no follow-up recommended. No renal or ureteral calculi are present. The urinary bladder is unremarkable. The prostate and seminal vesicles are unremarkable. There are thick-walled segments of small bowel in the central and left abdomen with surrounding mesenteric stranding, suspicious for enteritis. No evidence of bowel obstruction. Metallic device resembling a clip is present in the mid transverse colon. The appendix is unremarkable. Small amount of fluid is present in the lower abdomen. No free air is seen. Scattered atherosclerotic calcifications are present. No retroperitoneal or pelvic lymphadenopathy is seen. Multilevel endplate osteophytes are present. There is degenerative disc disease at L5-S1. Lower lumbar spine facet arthropathy is noted. CT/CT abdomen pelvis wo con IMPRESSION: 1. Thick-walled segments of small bowel in the central and left abdomen with surrounding stranding, suspicious for enteritis. No evidence of bowel obstruction. 2. Small amount of fluid around the liver and in the lower abdomen. 3. Coronary artery calcifications. Correlation with cardiac risk factors is recommended.
--- NOTE | ~2021-01-06 | CT_ITS ---
EXAMINATION: CT ABDOMEN AND PELVIS WITHOUT CONTRAST CLINICAL INFORMATION: Persistent epigastric abdominal pain COMPARISON: None TECHNIQUE: Multidetector volumetric imaging was performed from the superior aspect of the liver through the pubic symphysis. Sagittal and coronal reformatted images were obtained on the technologist's workstation. This CT examination was performed using dose optimization techniques as appropriate, variously including the following: *Automated exposure control *Adjustment of mA and/or kV according to patient size (this includes techniques or standardized protocols for targeted exams where dose is matched to indication/reason for exam; i.e. extremities or head) *Use of iterative reconstruction technique DLP: 682 mGy-cm FINDINGS: LUNG BASES: There is bilateral posterior pleural thickening with bilateral atelectasis. Heart size is normal. LIVER, GALLBLADDER, AND BILIARY TREE: The liver is normal in size, shape, and attenuation. No focal hepatic lesion or biliary ductal dilatation is present. The gallbladder is unremarkable with no evidence of radiopaque gallstones, gallbladder wall thickening, or obvious pericholecystic inflammatory changes. PANCREAS: Unremarkable. SPLEEN: Unremarkable. ADRENAL GLANDS: Unremarkable. KIDNEYS AND URETERS: The kidneys are normal in size, shape, and attenuation. No hydronephrosis, hydroureter, or calculi seen. There is 1.6 cm cyst partially exophytic upper pole and a 2.9 cm partially exophytic lower pole left kidney. There is bilateral perinephric stranding. BLADDER: Unremarkable. GASTROINTESTINAL TRACT: There is scattered stool and oral contrast seen throughout the colon without significant distention. The small bowel loops are normal caliber. The appendix is normal caliber. ABDOMINAL WALL: No significant hernia is appreciated. LYMPH NODES: Normal. VASCULAR: Unremarkable. PELVIC VISCERA: Unremarkable. OSSEOUS STRUCTURES: There is mild degenerative disc changes L5-S1 disc level with mild ventral spondylosis L2-L3 L4-L5 and L5/S1 disc levels. There is moderate ventral spondylosis lower dorsal spine. CT/CT abdomen pelvis wo con IMPRESSION: No acute intra-abdominal process seen. Bilateral renal cysts without any radiopaque calculi. There is bilateral perinephric stranding. Small bilateral pleural effusions or pleural thickening. Bibasilar atelectasis.
--- NOTE | ~2021-01-06 | XR_ITS ---
EXAMINATION: XR ABDOMEN KUB CLINICAL INDICATION: Abdominal pain. Follow-up to evaluate for free air. COMPARISON: None TECHNIQUE: AP view of the abdomen. FINDINGS: There is a surgical staple in the right epigastric region from previous intervention. The bowel gas pattern is nonspecific. Minimal scattered stool is seen in the left colon. No organomegaly. No radiopaque calculi. No gross bony abnormality except for moderate spondylosis lower dorsal spine. XR/XR KUB IMPRESSION: No acute process seen on the supine abdomen exam
--- NOTE | 2021-01-06 00:58 | ECG_ITS ---
Test Reason : CHEST PAIN Blood Pressure : / mmHG Vent. Rate : 121 BPM Atrial Rate : 121 BPM P-R Int : 152 ms QRS Dur : 070 ms QT Int : 308 ms P-R-T Axes : 055 027 023 degrees QTc Int : 437 ms Sinus tachycardia Nonspecific ST abnormality Inferior leads Abnormal ECG When compared with ECG of 23-FEB-2019 11:29, ST more depressed Inferior leads Referred By: Generic ED Physician Electronically Signed By:TOMAS JIMENES MD
[2021-01-06 01:20] LABS: Basophils Absolute Auto 0.1 X10*3/uL (0.0-0.2); Basophils Percent Auto 0.2 % (0-2); Eosinophils Absolute Auto 0.1 X10*3/uL (0.0-0.4); Eosinophils Percent Auto 0.6 % (0-4); Hematocrit 38.9 % (42.0-52.0); Hemoglobin 12.3 g/dl (14.0-18.0); Imm Gran Abs Auto 0.09 X10*3/uL (0.00-0.03); Imm Gran Pct Auto 0.4 % (0.0-0.4); Lymphocytes Absolute Auto 1.9 X10*3/uL (1.2-4.9); Lymphocytes Percent Auto 9.4 % (20-40); MANUAL DIFF FLAG NO; Mean Corpuscular HGB Conc 31.6 g/dl (31.0-36.0); Mean Corpuscular Volume 85.3 fL (80.0-98.0); Mean Platelet Volume 10.5 fL (9.4-12.4); Monocytes Absolute Auto 0.9 X10*3/uL (0.1-1.2); Monocytes Percent Auto 4.5 % (2-11); Neutrophils Absolute Auto 17.2 x10*3/uL (2.0-8.3); Neutrophils Percent Auto 84.9 % (45-73); Platelet Count 349 X10*3/uL (160-400); Red Blood Count 4.56 X10*6/uL (4.60-5.80); Red Cell Distribution Width 14.7 % (11.0-16.0); White Blood Count 20.3 X10*3/uL (4.8-10.8)
--- NOTE | 2021-01-06 01:24 | ED_ITS ---
HPI - Chest Pain General Chief Complaint: Chest Pain Stated Complaint: epigastric Time Seen by Provider: 01/06/21 01:22 Source: patient Mode of arrival: EMS History of Present Illness HPI narrative: 55-year-old male with multiple medical comorbidities presents via EMS for acute onset epigastric abdominal pain that is described as sharp in nature associated with nausea but denies any vomiting and otherwise describes that it radiates into his chest and he provides a history prior PE, but otherwise denies diarrhea or urinary symptoms. Related Data Home Medications Medication Instructions Recorded Confirmed albuterol (refill) 90 90 mcg INHALATION Q4-6H PRN 12/14/19 12/19/20 mcg/actuation aerosol inhaler albuterol sulfate 2.5 mg INHALATION QID 12/14/19 12/19/20 amlodipine 10 mg tablet 10 mg PO DAILY 12/14/19 12/19/20 carvedilol 25 mg tablet 25 mg PO BID 12/14/19 12/19/20 chlorthalidone 25 mg tablet 25 mg PO DAILY 12/14/19 12/19/20 duloxetine 60 mg capsule,delayed 60 mg PO DAILY 12/14/19 12/19/20 release ergocalciferol (vitamin D2) 50,000 50,000 unit PO .weekly tab 12/14/19 12/19/20 unit tablet furosemide 20 mg tablet 20 mg PO DAILY 12/14/19 12/19/20 gabapentin 100 mg capsule 100 mg PO DAILY 12/14/19 12/19/20 lancets 33 gauge (TRUEplus Lancets) #100 ea 12/14/19 12/19/20 lisinopril 10 mg tablet 10 mg PO DAILY 12/14/19 12/19/20 loratadine 10 mg capsule 10 mg PO DAILY 12/14/19 12/19/20 prazosin 2 mg capsule 2 mg PO BID 12/14/19 12/19/20 quetiapine 300 mg tablet,extended 300 mg PO DAILY 12/14/19 12/19/20 release 24 hr rivaroxaban 2.5 mg tablet (Xarelto) 2.5 mg PO BID 12/14/19 12/19/20 topiramate 50 mg tablet 50 mg PO BID 12/14/19 12/19/20 trazodone 150 mg tablet 150 mg PO DAILY 12/14/19 12/19/20 acetaminophen 500 mg tablet 500 mg PO Q6H PRN 03/22/20 12/19/20 (Tylenol Extra Strength) butalbital 50 mg-acetaminophen 325 1 cap PO Q4H PRN 08/09/20 12/19/20 mg-caffeine 40 mg-codeine 30 mg cap prednisone 20 mg tablet 20 mg PO DAILY 08/09/20 12/19/20 atorvastatin 40 mg tablet 40 mg PO BEDTIME 12/19/20 12/19/20 Previous Rx's Medication Instructions Recorded simethicone 180 mg capsule 180 mg PO QID 30 Days #120 cap 01/25/20 calcium carb 800 mg-magnes hydrox 10 ml PO TID PRN #355 ml 03/21/20 270 mg-simeth 80 mg/10 mL oral susp (Mylanta Tonight) oxycodone 5 mg capsule 5 mg PO Q6H PRN #14 cap 04/08/20 Wheelchair #1 ea 07/18/20 dulaglutide 1.5 mg/0.5 mL 1.5 mg (0.5 mL) SUBCUT QWEEK #2 ml 09/15/20 subcutaneous pen injector (Trulicity) bisacodyl 5 mg tablet,delayed 10 mg PO BEDTIME 2 Days #4 tab 09/19/20 release (Dulcolax (bisacodyl)) insulin glargine 100 unit/mL (3 45 unit (0.45 mL) SUBCUT QAM #15 ml 10/08/20 mL) subcutaneous pen (Lantus Solostar U-100 Insulin) pantoprazole 20 mg tablet,delayed 20 mg PO DAILY 30 Days #30 tab 11/08/20 release plecanatide 3 mg tablet (Trulance) 3 mg PO DAILY #30 tab 11/08/20 Allergies Allergy/AdvReac Type Severity Reaction Status Date / Time shellfish derived Allergy Severe SWOLLEN Verified 01/06/21 04:01 THROAT apple [Apple] Allergy Intermediate SWELLING Verified 01/06/21 04:01 egg [Egg] Allergy Intermediate HIVES Verified 01/06/21 04:01 influenza virus vaccine, Allergy Intermediate SWELLING Verified 01/06/21 04:01 specific [Influenza Virus Vacc,Specific] Penicillins Allergy Mild RASH Verified 01/06/21 04:01 lisinopril [Lisinopril] Allergy Unknown UNKNOWN Verified 01/06/21 04:01 nifedipine [From Procardia] Allergy Unknown UNKNOWN Verified 01/06/21 04:01 Review of Systems Review of Systems: Pertinent positives and negatives as stated in HPI 10 point review of systems is otherwise negative. [facility] Past Medical History Medical History Angina of effort Asthma Blind right eye Cancer of eye CHF (congestive heart failure) Chronic kidney disease, stage 3 Chronic pain Dysphagia Essential hypertension GERD (gastroesophageal reflux disease) Hemiparesis affecting left side as late effect of cerebrovascular accident Hemiplegia affecting dominant side History of poliomyelitis Hyperlipidemia LDL goal <70 Left ventricular hypertrophy Mood disorder Morbid obesity Nasal polyps Obesity due to excess calories ARTEM (obstructive sleep apnea) Other pulmonary embolism and infarction Positive PPD Syncope Type 2 diabetes mellitus with hyperglycemia, with long-term current use of insulin Type 2 diabetes mellitus with polyneuropathy Uninodular goiter (nontoxic) Surgical History History of cardiac catheterization History of coronary artery stent placement History of esophagogastroduodenoscopy (EGD) History of right knee joint replacement Hx of knee surgery Family History Family History Father Stroke Brain cancer CVD (cardiovascular disease) Diabetes Mother Diabetes Social History Social History 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 Alcohol intake: current Alcohol intake frequency: does not drink Patient Tobacco Use Status: Never used Tobacco Use of substances other than those prescribed or required for medical reasons: No Advance Directives: Yes Advance Directives on File: Yes Advance Directives Date on File: 08/27/10 Physical Exam Vital Signs: Vital Signs: Last Vital Signs Temp 98.1 F 01/06/21 07:07 Pulse 100 01/06/21 07:07 Resp 20 01/06/21 07:07 BP 101/70 01/06/21 07:07 Pulse Ox 97 01/06/21 07:07 Body Mass Index 42.9 VITAL SIGNS: Reviewed. GENERAL: Well developed, well nourished, in no acute distress. HEAD: Normocephalic/atraumatic EYES: PERRLA, EOMI OROPHARYNX: no oral lesions noted, posterior pharynx clear NECK: Supple, no adenopathy LUNGS: Normal breath sounds. No adventitious sounds or accessory muscle use. SpO2<97> CARDIOVASCULAR: Regular rate and rhythm without noted murmurs, no JVD or lower extremity edema. ABDOMEN: Obese, Soft, exquisitely tender in the epigastrium, non-distended with bowel sounds. SKIN: Inspection of the skin reveals no rashes NEUROLOGIC: Alert and oriented x 4. Course Course Course Narrative: 55-year-old male with history and clinical presentation concerning for possible perforation versus cholangitis versus pancreatitis. Review of all investigations concerning for the intra-abdominal free fluid in context with leukocytosis and epigastric pain. Patient has received IV fluids as well as antibiotics and will also receive Protonix. Reevaluation(s) Reevaluation #1: I discussed this case with Surgical Services who feels that this is unlikely perforation however are recommending admission to medicine with serial abdominal exams and consultation with GI for EGD especially given history recently of barium swallow. Time: 04:25 Reevaluation #2: I discussed the case with GI, Dr. Drake who will see the patient and recommends amylase. Time: 04:55 MDM - Chest Pain Lab Data Result diagrams: 01/06/21 01:14 01/06/21 01:14 Labs: Lab Results 01/06/21 01/06/21 01/06/21 Range/Units 01:14 01:14 01:14 WBC 20.3 H (4.8-10.8) X10*3/uL RBC 4.56 L (4.60-5.80) X10*6/uL Hgb 12.3 L (14.0-18.0) g/dl Hct 38.9 L (42.0-52.0) % MCV 85.3 (80.0-98.0) fL MCH 27.0 (27.0-33.0) pg MCHC 31.6 (31.0-36.0) g/dl RDW 14.7 (11.0-16.0) % Plt Count 349 (160-400) X10*3/uL MPV 10.5 (9.4-12.4) fL Immature Gran % (Auto) 0.4 (0.0-0.4) % Neut % (Auto) 84.9 H (45-73) % Lymph % (Auto) 9.4 L (20-40) % [place] % (Auto) 4.5 (2-11) % Eos % (Auto) 0.6 (0-4) % Baso % (Auto) 0.2 (0-2) % Lymph # (Auto) 1.9 (1.2-4.9) X10*3/uL [place] # (Auto) 0.9 (0.1-1.2) X10*3/uL Eos # (Auto) 0.1 (0.0-0.4) X10*3/uL Baso # (Auto) 0.1 (0.0-0.2) X10*3/uL Abs Immat Gran (auto) 0.09 H (0.00-0.03) X10*3/uL Absolute Neuts (auto) 17.2 H (2.0-8.3) x10*3/uL Absolute Nucleated RBC 0.000 (0.0-0.012) X10*3/uL Nucleated RBC % (auto) 0.0 (0.0-0.2) /100WBC PT (9.9-13.0) SEC INR (0.9-1.1) Sodium 140 (135-145) mmol/L Potassium 3.9 (3.3-5.1) mmol/L Chloride 106 (96-108) mmol/L Carbon Dioxide 19 L (22-29) mmol/L Anion Gap 19 (12-20) BUN 47 H D (9-16) mg/dL Creatinine 2.33 H (0.5-1.4) mg/dL Estim Creat Clear Calc 40.0 Estimated GFR 29 POC Glucose (60-115) mg/dL Random Glucose 234 H D (60-115) mg/dL Lactic Acid (0.5-2.0) mmol/L Lactic Acid Fup @ 2Hr (0.5-2.0) mmol/L Calcium 9.2 (8.4-10.2) mg/dL Magnesium 1.4 L* (1.6-2.6) mg/dL Total Bilirubin 0.4 (0.0-1.0) mg/dL Direct Bilirubin 0.2 (0.0-0.5) mg/dL AST 13 (5-37) U/L ALT 13 (0-40) U/L Alkaline Phosphatase 83 (39-117) U/L Troponin I High Sens 3.9 (<3.5-35.0) ng/L B-Natriuretic Peptide < 10 (<100) pg/mL Total Protein 7.0 (6.5-8.0) g/dL Albumin 4.1 (3.5-5.0) g/dL Amylase 59 (28-100) U/L Lipase 40 (8-78) U/L Urine Color Urine Appearance Urine pH (5.0-8.0) Ur Specific [place] (1.005-1.025) Urine Protein (NEG-TRACE) MG/DL Urine Glucose (UA) (NEG) MG/DL Urine Ketones (NEG) MG/DL Urine Blood (NEG) Urine Nitrite (NEG) Ur Leukocyte Esterase (NEG) Acetone, Qual Negative (Negative) COVID-19 (BRANDO) (Negative) COVID-19 Clin Com Blood Type Antibody Screen 01/06/21 01/06/21 01/06/21 Range/Units 01:27 01:33 01:33 WBC (4.8-10.8) X10*3/uL RBC (4.60-5.80) X10*6/uL Hgb (14.0-18.0) g/dl Hct (42.0-52.0) % MCV (80.0-98.0) fL MCH (27.0-33.0) pg MCHC (31.0-36.0) g/dl RDW (11.0-16.0) % Plt Count (160-400) X10*3/uL MPV (9.4-12.4) fL Immature Gran % (Auto) (0.0-0.4) % Neut % (Auto) (45-73) % Lymph % (Auto) (20-40) % [place] % (Auto) (2-11) % Eos % (Auto) (0-4) % Baso % (Auto) (0-2) % Lymph # (Auto) (1.2-4.9) X10*3/uL [place] # (Auto) (0.1-1.2) X10*3/uL Eos # (Auto) (0.0-0.4) X10*3/uL Baso # (Auto) (0.0-0.2) X10*3/uL Abs Immat Gran (auto) (0.00-0.03) X10*3/uL Absolute Neuts (auto) (2.0-8.3) x10*3/uL Absolute Nucleated RBC (0.0-0.012) X10*3/uL Nucleated RBC % (auto) (0.0-0.2) /100WBC PT 12.0 (9.9-13.0) SEC INR 1.1 (0.9-1.1) Sodium (135-145) mmol/L Potassium (3.3-5.1) mmol/L Chloride (96-108) mmol/L Carbon Dioxide (22-29) mmol/L Anion Gap (12-20) BUN (9-16) mg/dL Creatinine (0.5-1.4) mg/dL Estim Creat Clear Calc Estimated GFR POC Glucose 235 H (60-115) mg/dL Random Glucose (60-115) mg/dL Lactic Acid 2.3 H* (0.5-2.0) mmol/L Lactic Acid Fup @ 2Hr (0.5-2.0) mmol/L Calcium (8.4-10.2) mg/dL Magnesium (1.6-2.6) mg/dL Total Bilirubin (0.0-1.0) mg/dL Direct Bilirubin (0.0-0.5) mg/dL AST (5-37) U/L ALT (0-40) U/L Alkaline Phosphatase (39-117) U/L Troponin I High Sens (<3.5-35.0) ng/L B-Natriuretic Peptide (<100) pg/mL Total Protein (6.5-8.0) g/dL Albumin (3.5-5.0) g/dL Amylase (28-100) U/L Lipase (8-78) U/L Urine Color Urine Appearance Urine pH (5.0-8.0) Ur Specific [place] (1.005-1.025) Urine Protein (NEG-TRACE) MG/DL Urine Glucose (UA) (NEG) MG/DL Urine Ketones (NEG) MG/DL Urine Blood (NEG) Urine Nitrite (NEG) Ur Leukocyte Esterase (NEG) Acetone, Qual (Negative) COVID-19 (BRANDO) (Negative) COVID-19 Clin Com Blood Type Antibody Screen 01/06/21 01/06/21 01/06/21 Range/Units 03:50 03:50 03:50 WBC (4.8-10.8) X10*3/uL RBC (4.60-5.80) X10*6/uL Hgb (14.0-18.0) g/dl Hct (42.0-52.0) % MCV (80.0-98.0) fL MCH (27.0-33.0) pg MCHC (31.0-36.0) g/dl RDW (11.0-16.0) % Plt Count (160-400) X10*3/uL MPV (9.4-12.4) fL Immature Gran % (Auto) (0.0-0.4) % Neut % (Auto) (45-73) % Lymph % (Auto) (20-40) % [place] % (Auto) (2-11) % Eos % (Auto) (0-4) % Baso % (Auto) (0-2) % Lymph # (Auto) (1.2-4.9) X10*3/uL [place] # (Auto) (0.1-1.2) X10*3/uL Eos # (Auto) (0.0-0.4) X10*3/uL Baso # (Auto) (0.0-0.2) X10*3/uL Abs Immat Gran (auto) (0.00-0.03) X10*3/uL Absolute Neuts (auto) (2.0-8.3) x10*3/uL Absolute Nucleated RBC (0.0-0.012) X10*3/uL Nucleated RBC % (auto) (0.0-0.2) /100WBC PT (9.9-13.0) SEC INR (0.9-1.1) Sodium (135-145) mmol/L Potassium (3.3-5.1) mmol/L Chloride (96-108) mmol/L Carbon Dioxide (22-29) mmol/L Anion Gap (12-20) BUN (9-16) mg/dL Creatinine (0.5-1.4) mg/dL Estim Creat Clear Calc Estimated GFR POC Glucose (60-115) mg/dL Random Glucose (60-115) mg/dL Lactic Acid (0.5-2.0) mmol/L Lactic Acid Fup @ 2Hr 3.7 H* (0.5-2.0) mmol/L Calcium (8.4-10.2) mg/dL Magnesium (1.6-2.6) mg/dL Total Bilirubin (0.0-1.0) mg/dL Direct Bilirubin (0.0-0.5) mg/dL AST (5-37) U/L ALT (0-40) U/L Alkaline Phosphatase (39-117) U/L Troponin I High Sens (<3.5-35.0) ng/L B-Natriuretic Peptide (<100) pg/mL Total Protein (6.5-8.0) g/dL Albumin (3.5-5.0) g/dL Amylase (28-100) U/L Lipase (8-78) U/L Urine Color YELLOW Urine Appearance CLEAR Urine pH 5.5 (5.0-8.0) Ur Specific [place] 1.020 (1.005-1.025) Urine Protein NEG (NEG-TRACE) MG/DL Urine Glucose (UA) NEG (NEG) MG/DL Urine Ketones NEG (NEG) MG/DL Urine Blood NEG (NEG) Urine Nitrite NEG (NEG) Ur Leukocyte Esterase NEG (NEG) Acetone, Qual (Negative) COVID-19 (BRANDO) Negative (Negative) COVID-19 Clin Com See Note Blood Type Antibody Screen 01/06/21 01/06/21 Range/Units 03:50 05:13 WBC (4.8-10.8) X10*3/uL RBC (4.60-5.80) X10*6/uL Hgb (14.0-18.0) g/dl Hct (42.0-52.0) % MCV (80.0-98.0) fL MCH (27.0-33.0) pg MCHC (31.0-36.0) g/dl RDW (11.0-16.0) % Plt Count (160-400) X10*3/uL MPV (9.4-12.4) fL Immature Gran % (Auto) (0.0-0.4) % Neut % (Auto) (45-73) % Lymph % (Auto) (20-40) % [place] % (Auto) (2-11) % Eos % (Auto) (0-4) % Baso % (Auto) (0-2) % Lymph # (Auto) (1.2-4.9) X10*3/uL [place] # (Auto) (0.1-1.2) X10*3/uL Eos # (Auto) (0.0-0.4) X10*3/uL Baso # (Auto) (0.0-0.2) X10*3/uL Abs Immat Gran (auto) (0.00-0.03) X10*3/uL Absolute Neuts (auto) (2.0-8.3) x10*3/uL Absolute Nucleated RBC (0.0-0.012) X10*3/uL Nucleated RBC % (auto) (0.0-0.2) /100WBC PT (9.9-13.0) SEC INR (0.9-1.1) Sodium (135-145) mmol/L Potassium (3.3-5.1) mmol/L Chloride (96-108) mmol/L Carbon Dioxide (22-29) mmol/L Anion Gap (12-20) BUN (9-16) mg/dL Creatinine (0.5-1.4) mg/dL Estim Creat Clear Calc Estimated GFR POC Glucose (60-115) mg/dL Random Glucose (60-115) mg/dL Lactic Acid (0.5-2.0) mmol/L Lactic Acid Fup @ 2Hr (0.5-2.0) mmol/L Calcium (8.4-10.2) mg/dL Magnesium (1.6-2.6) mg/dL Total Bilirubin (0.0-1.0) mg/dL Direct Bilirubin (0.0-0.5) mg/dL AST (5-37) U/L ALT (0-40) U/L Alkaline Phosphatase (39-117) U/L Troponin I High Sens 3.7 (<3.5-35.0) ng/L B-Natriuretic Peptide (<100) pg/mL Total Protein (6.5-8.0) g/dL Albumin (3.5-5.0) g/dL Amylase (28-100) U/L Lipase (8-78) U/L Urine Color Urine Appearance Urine pH (5.0-8.0) Ur Specific [place] (1.005-1.025) Urine Protein (NEG-TRACE) MG/DL Urine Glucose (UA) (NEG) MG/DL Urine Ketones (NEG) MG/DL Urine Blood (NEG) Urine Nitrite (NEG) Ur Leukocyte Esterase (NEG) Acetone, Qual (Negative) COVID-19 (BRANDO) (Negative) COVID-19 Clin Com Blood Type A Positive Antibody Screen NEGATIVE ECG Data ECG #1: Attestation: I personally reviewed and interpreted this ECG as follows: Prior ECG tracings: available for review (02/23/2019) Interpretation: Sinus tachycardia, HR-121, no STEMI, LA/QRS/QTC are within normal limits. Critical Care Time Critical Care Time Critical Care Time: Yes Total Critical Care Time: 30 Attestation: I personally attest to this time spent taking care of the patient. Discharge Plan Discharge Clinical Impression: Sepsis, Free fluid in pelvis, Epigastric pain Patient Disposition: Admitted As Inpatient
[2021-01-06 01:38] LABS: Glucose, Whole Blood 235 mg/dL (60-115)
[2021-01-06 01:40] LABS: Anion Gap 19 (12-20); Blood Urea Nitrogen 47 mg/dL (9-16); Calcium 9.2 mg/dL (8.4-10.2); Carbon Dioxide 19 mmol/L (22-29); Chloride 106 mmol/L (96-108); Estimated Glomerular Filt Rate 29; Glucose Random 234 mg/dL (60-115); Potassium 3.9 mmol/L (3.3-5.1); Sodium 140 mmol/L (135-145)
[2021-01-06 01:43] LABS: Troponin-I High Sensitivity 3.9 ng/L (<3.5-35.0)
[2021-01-06 01:44] LABS: INTERNATIONAL NORM RATIO 1.1 (0.9-1.1)
[2021-01-06 01:47] LABS: B Type Natriuretic Peptide < 10 pg/mL (<100)
[2021-01-06 01:57] LABS: Acetone, serum QL Negative (Negative)
[2021-01-06 01:58] LABS: Lactic Acid 2.3 mmol/L (0.5-2.0)
[2021-01-06 01:59] LABS: Lipase 40 U/L (8-78); Magnesium 1.4 mg/dL (1.6-2.6)
[2021-01-06] MEDS: cefEPime HCl 2 GM in 0.9 % Sodium Chloride 50 ML IV (02:27)
[2021-01-06] MEDS: 0.9 % Sodium Chloride 1,000 ML 999 ML IV ×2 (02:27→04:07)
--- NOTE | 2021-01-06 02:40 | PC.NURSE ---
PT transferred to CT scan via stretcher.
[2021-01-06] MEDS: Magnesium Sulfate/D5W 1 GM/100 ML PIGGYBACK IV (02:55)
[2021-01-06 03:37] LABS: Reflex Lactate? Lactic Acid Added
[2021-01-06 04:00] LABS: Appearance Urine CLEAR; Color Urine YELLOW; Glucose Urine UA NEG (NEG); Leukocyte Esterase Urine NEG (NEG); Nitrite Urine NEG (NEG); PH 5.5 (5.0-8.0); Urine Blood NEG (NEG); Urine Ketones NEG (NEG); Urine Protein NEG (NEG-TRACE)
[2021-01-06 04:02] LABS: UACC Culture Trigger NO
--- NOTE | 2021-01-06 04:14 | PC.NURSE ---
CALL OUT TO [facility] WITH ANSWERING SERVICE, WAITING ON RETURN
[2021-01-06 04:17] LABS: COVID-19 Test Negative (Negative); IDNOW Serial# 9DD0AD1C
[2021-01-06 04:18] LABS: ~Lactic Acid-LAB USE ONLY 3.7 mmol/L (0.5-2.0)
--- NOTE | 2021-01-06 04:30 | PC.NURSE ---
Provider stated that troponin lab can be delayed until lactic acid is due to be drawn in an hour.
[2021-01-06 04:33] LABS: Alanine Aminotransferase 13 U/L (0-40); Albumin Level 4.1 g/dL (3.5-5.0); Alkaline Phosphatase 83 U/L (39-117); Aspartate Amino Transferase 13 U/L (5-37); Bilirubin Direct 0.2 mg/dL (0.0-0.5); Bilirubin Total 0.4 mg/dL (0.0-1.0)
[2021-01-06] MEDS: Pantoprazole Sodium 40 MG/10 ML VIAL 80 MG IVPUSH (05:19)
[2021-01-06 05:21] LABS: Amylase 59 U/L (28-100)
[2021-01-06 05:39] LABS: Troponin-I High Sensitivity 3.7 ng/L (<3.5-35.0)
[2021-01-06] MEDS: fentaNYL citrate/PF 100 MCG/2 ML VIAL 25 MCG IVPUSH (07:39)
--- NOTE | 2021-01-06 09:37 | PHA.MEDREC ---
Pharmacy Consult ? Medication Reconciliation Pharmacy has completed the medication reconciliation. There are no remarkable issues for provider's attention. Patient had list of medications in medbox. Called pharamcy to verify the Xarelto and Trulance were still being picked up as they were no in [facility]. Xin Metzger, PharmD
--- NOTE | 2021-01-06 10:39 | PM.GICN ---
History of Present Illness Data of Consult Service Date: 01/06/21 Requesting physician: Sree Santos Primary Care Provider: Toro Perez MD HPI Reason for consult: abdominal pain 55 yr old m with type 2 diabetes and diabetic neuropathy, GERD, chronic? constipation, obesity, dyslipidemia, hypertension, ARTEM, CHF who I am seeing for abdominal pain he has 2 d of sudden onset epigastric pain without radiation, severe and sharp, initially associated with nausea and headache but no vomiting. no relieiving or exacerbating factors. he has poor appetite, denies diarrhea, no constipation, no rectal bleeding, no melena and no sick contacts or ingestion of raw foods or meats. Labns revealed a leukocytosis, lactic acidosis and acute on chronic kidney failure. imaging personally reviewed with loops of thickened small bowel and sindy hepatic free fluid, and mesenteritis, atherosclerosis, and spinal degeneration. Ba swallow done 08/2020--nml colonoscopy done 10/2020-- polyps removed.--tubular adenomas Review of Systems Review of Systems: Constitutional : No Weight loss, No Fever, No Chills ENT/Mouth : No sore throat, No Rhinorrhea Eyes: No Swelling, No Redness Cardiovascular : No Chest Pain, No SOB, No Edema Respiratory : No Cough, No Sputum, No Wheezing Gastrointestinal : see HPI Genitourinary : NO Dysuria, No Urinary Frequency, No Hematuria, No Urgency Musculoskeletal : No joint pain, No Myalgias, No Joint Swelling Skin : No Skin Lesions, No rash Neuro : + Weakness, No Numbness, No Dizziness, No Headache Psych : No Anxiety/Panic, No Depression Heme/Lymph: No Bruising, No Lymphadenopathy Endocrine : No Polyuria, No Polydipsia All other systems reviewed and are negative. [facility] Past Medical History Medical History Angina of effort Asthma Blind right eye Cancer of eye CHF (congestive heart failure) Chronic kidney disease, stage 3 Chronic pain Dysphagia Essential hypertension GERD (gastroesophageal reflux disease) Hemiparesis affecting left side as late effect of cerebrovascular accident Hemiplegia affecting dominant side History of poliomyelitis Hyperlipidemia LDL goal <70 Left ventricular hypertrophy Mood disorder Morbid obesity Nasal polyps Obesity due to excess calories ARTEM (obstructive sleep apnea) Other pulmonary embolism and infarction Positive PPD Syncope Type 2 diabetes mellitus with hyperglycemia, with long-term current use of insulin Type 2 diabetes mellitus with polyneuropathy Uninodular goiter (nontoxic) Family History Family History Father Stroke Brain cancer CVD (cardiovascular disease) Diabetes Mother Diabetes Surgical History Surgical History History of cardiac catheterization History of coronary artery stent placement History of esophagogastroduodenoscopy (EGD) History of right knee joint replacement Hx of knee surgery Social History Social History 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 Alcohol intake: current Alcohol intake frequency: does not drink Patient Tobacco Use Status: Never used Tobacco Use of substances other than those prescribed or required for medical reasons: No Advance Directives: Yes Advance Directives on File: Yes Advance Directives Date on File: 08/27/10 service: No Meds Allergies Allergy/AdvReac Type Severity Reaction Status Date / Time shellfish derived Allergy Severe SWOLLEN Verified 01/06/21 04:01 THROAT apple [Apple] Allergy Intermediate SWELLING Verified 01/06/21 04:01 egg [Egg] Allergy Intermediate HIVES Verified 01/06/21 04:01 influenza virus vaccine, Allergy Intermediate SWELLING Verified 01/06/21 04:01 specific [Influenza Virus Vacc,Specific] Penicillins Allergy Mild RASH Verified 01/06/21 04:01 lisinopril [Lisinopril] Allergy Unknown UNKNOWN Verified 01/06/21 04:01 nifedipine [From Procardia] Allergy Unknown UNKNOWN Verified 01/06/21 04:01 Active Medications: Current Medications Pharmacy Consult (Consult Rx Perform Med Rec) 1 each MISCELLANE ONCE PRN PRN Reason: Consult order Home Medications Medication Instructions Recorded Confirmed Last Taken Type albuterol sulfate 2.5 mg INHALATION QID 12/14/19 01/06/21 Unknown History amlodipine 10 mg tablet 10 mg PO DAILY 12/14/19 01/06/21 01/05/21 History carvedilol 25 mg tablet 25 mg PO BID 12/14/19 01/06/21 01/05/21 History chlorthalidone 25 mg tablet 12.5 mg PO DAILY 12/14/19 01/06/21 01/05/21 History duloxetine 60 mg capsule,delayed 60 mg PO DAILY 12/14/19 01/06/21 01/05/21 History release furosemide 20 mg tablet 20 mg PO DAILY 12/14/19 01/06/21 01/05/21 History gabapentin 100 mg capsule 100 mg PO TID 12/14/19 01/06/21 01/05/21 History lancets 33 gauge (TRUEplus Lancets) #100 ea 12/14/19 12/19/20 Unknown History lisinopril 10 mg tablet 10 mg PO DAILY 12/14/19 01/06/21 01/05/21 History loratadine 10 mg capsule 10 mg PO DAILY 12/14/19 01/06/21 01/05/21 History prazosin 2 mg capsule 2 mg PO BID 12/14/19 01/06/21 01/05/21 History quetiapine 300 mg tablet,extended 300 mg PO DAILY@1700 12/14/19 01/06/21 01/05/21 History release 24 hr rivaroxaban 2.5 mg tablet (Xarelto) 2.5 mg PO BID 12/14/19 01/06/21 01/05/21 History topiramate 50 mg tablet 50 mg PO BEDTIME 12/14/19 01/06/21 01/05/21 History trazodone 150 mg tablet 150 mg PO BEDTIME 12/14/19 01/06/21 01/05/21 History acetaminophen 500 mg tablet 500 mg PO Q6H PRN 03/22/20 01/06/21 Unknown History (Tylenol Extra Strength) atorvastatin 40 mg tablet 40 mg PO BEDTIME 12/19/20 01/06/21 01/05/21 History albuterol sulfate 90 mcg/actuation 2 puff INHALATION Q4-6H PRN 01/06/21 01/06/21 Unknown History aerosol inhaler dulaglutide 1.5 mg/0.5 mL 1.5 mg SUBCUT WE 01/06/21 01/06/21 01/01/21 History subcutaneous pen injector (Trulicity) fluticasone propionate 110 1 puff PO BID 01/06/21 01/06/21 01/05/21 History mcg/actuation HFA aerosol inhaler (Flovent HFA) fluticasone propionate 50 1 spray INTRANASAL DAILY 01/06/21 01/06/21 01/05/21 History mcg/actuation nasal spray,suspension insulin glargine 100 unit/mL (3 50 unit SUBCUT DAILY 01/06/21 01/06/2121 History mL) subcutaneous pen (Lantus Solostar U-100 Insulin) oxycodone 5 mg capsule 5 mg PO BEDTIME 01/06/21 01/06/21 01/05/21 History trazodone 150 mg tablet 150 mg PO BEDTIME PRN 01/06/21 01/06/21 Unknown History Physical Exam Vital Signs: Vital Signs: Last Vital Signs Temp 98.1 F 01/06/21 07:07 Pulse 96 01/06/21 08:03 Resp 16 01/06/21 08:03 BP 110/68 01/06/21 08:03 Pulse Ox 97 01/06/21 08:03 Body Mass Index 42.9 EXAM: GENERAL: The patient is obese and distressed VITAL SIGNS:see workflow HEENT: Nonicteric sclerae, PERRLA, EOMI. Oropharynx clear. Moist mucous membranes. Conjunctivae appear well perfused. No thyroid mass. CHEST: Chest wall is nontender. HEART: Regular rate and rhythm without murmurs. LUNGS: Clear to auscultation bilaterally. ABDOMEN: Soft, positive bowel sounds, tender epigastric area with some guarding, no organomegaly.no flank tenderness SKIN: No rash, no excessive bruising, petechiae, or purpura. NEUROLOGIC: Cranial nerves II-XII intact without motor/sensory deficit. psych- nml affect extremities- nml Results Labs CBC & Chem 7: 01/06/21 01:14 01/06/21 01:14 Labs: Short CBC 01/06/21 Range/Units 01:14 WBC 20.3 H (4.8-10.8) X10*3/uL Hgb 12.3 L (14.0-18.0) g/dl Hct 38.9 L (42.0-52.0) % Plt Count 349 (160-400) X10*3/uL BMP 01/06/21 01:14 Sodium 140 Potassium 3.9 Chloride 106 Carbon Dioxide 19 L BUN 47 H D Creatinine 2.33 H Calcium 9.2 Liver Function 01/06/21 Range/Units 01:14 Total Bilirubin 0.4 (0.0-1.0) mg/dL Direct Bilirubin 0.2 (0.0-0.5) mg/dL AST 13 (5-37) U/L ALT 13 (0-40) U/L Alkaline Phosphatase 83 (39-117) U/L Albumin 4.1 (3.5-5.0) g/dL Urine 01/06/21 Range/Units 03:50 Urine Color YELLOW Urine Appearance CLEAR Urine pH 5.5 (5.0-8.0) Ur Specific [place] 1.020 (1.005-1.025) Urine Protein NEG (NEG-TRACE) MG/DL Urine Glucose (UA) NEG (NEG) MG/DL Imaging CT scan - abdomen: Attestation: I personally reviewed and interpreted this imaging study as follows: My impression: see HPI Assessment and Plan (1) Enteritis: Status: Acute 1/ Enteritis, acute--most likely infectious, ddx; IBD, ischemic, infiltrative or neoplastic. Free fluid is concerning most likely 2/2 mesenteric inflammation PLAN: 1/ Cont with abx therapy as doing 2/ IV fluid resuscitation 3/ surgical evaluation, 4/ consider repeating CT with PO contrast in 24-48 hrs depending on clinical response 5/ NPO for the moment, advance diet if clinically improves 6/ hold on egd or push enteroscopy for the moment Procedures Date of Service Date of Service: 01/06/21
[2021-01-06] MEDS: Lactated Ringers 1,000 ML 999 ML IV (10:55)
--- NOTE | 2021-01-06 11:03 | PM.IMHP ---
History of Present Illness Date of Service: 01/06/21 Chief Complaint: Abdominal pain This is a 55 yo Lao speaking M (history obtained with a pick up) with a PMH as outlined below who presents to the hospital with complaints of sharp abdominal pain with associated nausea which began on the day [facility]. The patient reports that he was in his usual state of health prior to this. He denies eating out of the ordinary. He denies any vomiting, diarrhea or constipation. Reports his last BM was the day [facility]. He denies any fevers or chills. Denies any sick contacts. He denies NSAID use, reports only uses tylenol. He denies any chest pain, sob, cough. Denies any known sick COVID contacts. In the ED the patients work up revealed Review of Systems Review of Systems: negative except HPI PMFSH Medical History Angina of effort Asthma Blind right eye Cancer of eye CHF (congestive heart failure) Chronic kidney disease, stage 3 Chronic pain Dysphagia Essential hypertension GERD (gastroesophageal reflux disease) Hemiparesis affecting left side as late effect of cerebrovascular accident Hemiplegia affecting dominant side History of poliomyelitis Hyperlipidemia LDL goal <70 Left ventricular hypertrophy Mood disorder Morbid obesity Nasal polyps Obesity due to excess calories ARTEM (obstructive sleep apnea) Other pulmonary embolism and infarction Positive PPD Syncope Type 2 diabetes mellitus with hyperglycemia, with long-term current use of insulin Type 2 diabetes mellitus with polyneuropathy Uninodular goiter (nontoxic) Family History Father Stroke Brain cancer CVD (cardiovascular disease) Diabetes Mother Diabetes Pertinent family history: . Surgical History History of cardiac catheterization History of coronary artery stent placement History of esophagogastroduodenoscopy (EGD) History of right knee joint replacement Hx of knee surgery Social History 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 Alcohol intake: current Alcohol intake frequency: does not drink Patient Tobacco Use Status: Never used Tobacco Use of substances other than those prescribed or required for medical reasons: No Advance Directives: Yes Advance Directives on File: Yes Advance Directives Date on File: 08/27/10 Meds Allergies Allergy/AdvReac Type Severity Reaction Status Date / Time shellfish derived Allergy Severe SWOLLEN Verified 01/06/21 04:01 THROAT apple [Apple] Allergy Intermediate SWELLING Verified 01/06/21 04:01 egg [Egg] Allergy Intermediate HIVES Verified 01/06/21 04:01 influenza virus vaccine, Allergy Intermediate SWELLING Verified 01/06/21 04:01 specific [Influenza Virus Vacc,Specific] Penicillins Allergy Mild RASH Verified 01/06/21 04:01 lisinopril [Lisinopril] Allergy Unknown UNKNOWN Verified 01/06/21 04:01 nifedipine [From Procardia] Allergy Unknown UNKNOWN Verified 01/06/21 04:01 Active Medications: Current Medications Acetaminophen (Acetaminophen 325 Mg Tablet) 650 mg PO Q6H PRN PRN Reason: Pain, Mild (Pain Scale 1-3) Lactated Ringer's (Lr) 1,000 mls @ 999 mls/hr IV .Q1H1M [facility] Stop: 01/06/21 11:45 Last Admin: 01/06/21 10:55 Dose: 999 mls/hr Documented by: Ceftriaxone Sodium 1 gm/ (Sodium Chloride) 50 mls @ 100 mls/hr IV Q24H [facility] Metronidazole (Flagyl) 500 mg in 100 mls @ 100 mls/hr IV Q8H [facility] Stop: 01/07/21 03:59 Pharmacy Consult (Consult Rx Perform Med Rec) 1 each MISCELLANE ONCE PRN PRN Reason: Consult order Sodium Chloride (0.9 % Sodium Chloride Flush 3 Ml Syringe) 3 ml IVFLUSH QSHIFT [facility] Home Medications Medication Instructions Recorded Confirmed Last Taken Type albuterol sulfate 2.5 mg INHALATION QID 12/14/19 01/06/21 Unknown History amlodipine 10 mg tablet 10 mg PO DAILY 12/14/19 01/06/21 01/05/21 History carvedilol 25 mg tablet 25 mg PO BID 12/14/19 01/06/21 01/05/21 History chlorthalidone 25 mg tablet 12.5 mg PO DAILY 12/14/19 01/06/21 01/05/21 History duloxetine 60 mg capsule,delayed 60 mg PO DAILY 12/14/19 01/06/21 01/05/21 History release furosemide 20 mg tablet 20 mg PO DAILY 12/14/19 01/06/21 01/05/21 History gabapentin 100 mg capsule 100 mg PO TID 12/14/19 01/06/2101/05/21 History lancets 33 gauge (TRUEplus Lancets) #100 ea 12/14/19 12/19/20 Unknown History lisinopril 10 mg tablet 10 mg PO DAILY 12/14/19 01/06/21 01/05/21 History loratadine 10 mg capsule 10 mg PO DAILY 12/14/19 01/06/21 01/05/21 History prazosin 2 mg capsule 2 mg PO BID 12/14/19 01/06/21 01/05/21 History quetiapine 300 mg tablet,extended 300 mg PO DAILY@1700 12/14/19 01/06/21 01/05/21 History release 24 hr rivaroxaban 2.5 mg tablet (Xarelto) 2.5 mg PO BID 12/14/19 01/06/21 01/05/21 History topiramate 50 mg tablet 50 mg PO BEDTIME 12/14/19 01/06/21 01/05/21 History trazodone 150 mg tablet 150 mg PO BEDTIME 12/14/19 01/06/21 01/05/21 History acetaminophen 500 mg tablet 500 mg PO Q6H PRN 03/22/20 01/06/21 Unknown History (Tylenol Extra Strength) atorvastatin 40 mg tablet 40 mg PO BEDTIME 12/19/20 01/06/21 01/05/21 History albuterol sulfate 90 mcg/actuation 2 puff INHALATION Q4-6H PRN 01/06/21 01/06/21 Unknown History aerosol inhaler dulaglutide 1.5 mg/0.5 mL 1.5 mg SUBCUT WE 01/06/21 01/06/21 01/01/21 History subcutaneous pen injector (Trulicity) fluticasone propionate 110 1 puff PO BID 01/06/21 01/06/21 01/05/21 History mcg/actuation HFA aerosol inhaler (Flovent HFA) fluticasone propionate 50 1 spray INTRANASAL DAILY 01/06/21 01/06/21 01/05/21 History mcg/actuation nasal spray,suspension insulin glargine 100 unit/mL (3 50 unit SUBCUT DAILY 01/06/21 01/06/21 01/05/21 History mL) subcutaneous pen (Lantus Solostar U-100 Insulin) oxycodone 5 mg capsule 5 mg PO BEDTIME 01/06/21 01/06/21 01/05/21 History trazodone 150 mg tablet 150 mg PO BEDTIME PRN 01/06/21 01/06/21 Unknown History Physical Exam Vital Signs and Narrative: Vital Signs: Last Vital Signs Temp 98.1 F 01/06/21 07:07 Pulse 96 01/06/21 08:03 Resp 16 01/06/21 08:03 BP 110/68 01/06/21 08:03 Pulse Ox 97 01/06/21 08:03 Body Mass Index 42.9 Const: Other: Constitutional - Awake and Alert, No apparent distress Eyes - PERRLA, EOMI Cardiovascular - S1S2, RRR, No edema Respiratory - Normal lung expansion, Normal respiratory effort, No respiratory distress, CTA bilaterally Gastrointestinal - +epigastric tenderness to palpation without rebounding or guarding, hypotactive BS - No CVA tenderness Extremities - no calf tenderness bilaterally, no swelling Musculoskeletal - Normal inspection, normal ROM Skin - Warm/Dry Neurological - Alert & oriented x3, No focal deficit Psychological - Appropriate affect Results Labs CBC and Chem 7: 01/06/21 01:14 01/06/21 01:14 Labs: Laboratory Results - last 24 hr 01/06/21 01/06/21 01/06/21 01:14 01:14 01:14 MCV 85.3 MCH 27.0 MCHC 31.6 RDW 14.7 Plt Count 349 MPV 10.5 Immature Gran % (Auto) 0.4 Neut % (Auto) 84.9 H Lymph % (Auto) 9.4 L [place] % (Auto) 4.5 Eos % (Auto) 0.6 Baso % (Auto) 0.2 Lymph # (Auto) 1.9 [place] # (Auto) 0.9 Eos # (Auto) 0.1 Baso # (Auto) 0.1 Abs Immat Gran (auto) 0.09 H Absolute Neuts (auto) 17.2 H Absolute Nucleated RBC 0.000 Nucleated RBC % (auto) 0.0 PT INR Anion Gap 19 Estim Creat Clear Calc 40.0 Estimated GFR 29 POC Glucose Random Glucose 234 H D Lactic Acid Lactic Acid Fup @ 2Hr Calcium 9.2 Magnesium 1.4 L* Total Bilirubin 0.4 Direct Bilirubin 0.2 AST 13 ALT 13 Alkaline Phosphatase 83 Troponin I High Sens 3.9 B-Natriuretic Peptide < 10 Total Protein 7.0 Albumin 4.1 Amylase 59 Lipase 40 Urine Color Urine Appearance Urine pH Ur Specific Jesse Urine Protein Urine Glucose (UA) Urine Ketones Urine Blood Urine Nitrite Ur Leukocyte Esterase Acetone, Qual Negative COVID-19 (BRANDO) COVID-19 Contact At Once! Com Blood Type Antibody Screen 01/06/21 01/06/21 01/06/21 01:27 01:33 01:33 MCV MCH MCHC RDW Plt Count MPV Immature Gran % (Auto) Neut % (Auto) Lymph % (Auto) [place] % (Auto) Eos % (Auto) Baso % (Auto) Lymph # (Auto) [place] # (Auto) Eos # (Auto) Baso # (Auto) Abs Immat Gran (auto) Absolute Neuts (auto) Absolute Nucleated RBC Nucleated RBC % (auto) PT 12.0 INR 1.1 Anion Gap Estim Creat Clear Calc Estimated GFR POC Glucose 235 H Random Glucose Lactic Acid 2.3 H* Lactic Acid Fup @ 2Hr Calcium Magnesium Total Bilirubin Direct Bilirubin AST ALT Alkaline Phosphatase Troponin I High Sens B-Natriuretic Peptide Total Protein Albumin Amylase Lipase Urine Color Urine Appearance Urine pH Ur Specific Jesse Urine Protein Urine Glucose (UA) Urine Ketones Urine Blood Urine Nitrite Ur Leukocyte Esterase Acetone, Qual COVID-19 (BRANDO) COVID-[employer] Com Blood Type Antibody Screen 01/06/21 01/06/21 01/06/21 03:50 03:50 03:50 MCV MCH MCHC RDW Plt Count MPV Immature Gran % (Auto) Neut % (Auto) Lymph % (Auto) [place] % (Auto) Eos % (Auto) Baso % (Auto) Lymph # (Auto) [place] # (Auto) Eos # (Auto) Baso # (Auto) Abs Immat Gran (auto) Absolute Neuts (auto) Absolute Nucleated RBC Nucleated RBC % (auto) PT INR Anion Gap Estim Creat Clear Calc Estimated GFR POC Glucose Random Glucose Lactic Acid Lactic Acid Fup @ 2Hr 3.7 H* Calcium Magnesium Total Bilirubin Direct Bilirubin AST ALT Alkaline Phosphatase Troponin I High Sens B-Natriuretic Peptide Total Protein Albumin Amylase Lipase Urine Color YELLOW Urine Appearance CLEAR Urine pH 5.5 Ur Specific [place] 1.020 Urine Protein NEG Urine Glucose (UA) NEG Urine Ketones NEG Urine Blood NEG Urine Nitrite NEG Ur Leukocyte Esterase NEG Acetone, Qual COVID-19 (BRANDO) Negative COVID-Conform[employer] See Note Blood Type Antibody Screen 01/06/21 01/06/21 03:50 05:13 MCV MCH MCHC RDW Plt Count MPV Immature Gran % (Auto) Neut % (Auto) Lymph % (Auto) [place] % (Auto) Eos % (Auto) Baso % (Auto) Lymph # (Auto) [place] # (Auto) Eos # (Auto) Baso # (Auto) Abs Immat Gran (auto) Absolute Neuts (auto) Absolute Nucleated RBC Nucleated RBC % (auto) PT INR Anion Gap Estim Creat Clear Calc Estimated GFR POC Glucose Random Glucose Lactic Acid Lactic Acid Fup @ 2Hr Calcium Magnesium Total Bilirubin Direct Bilirubin AST ALT Alkaline Phosphatase Troponin I High Sens 3.7 B-Natriuretic Peptide Total Protein Albumin Amylase Lipase Urine Color Urine Appearance Urine pH Ur Specific [place] Urine Protein Urine Glucose (UA) Urine Ketones Urine Blood Urine Nitrite Ur Leukocyte Esterase Acetone, Qual COVID-19 (BRANDO) COVID-19 Clin Com Blood Type A Positive Antibody Screen NEGATIVE Imaging Radiologist's Impressions: Impressions Abdomen/Pelvis CT 01/06/21 02:06 IMPRESSION: 1. Thick-walled segments of small bowel in the central and left abdomen with surrounding stranding, suspicious for enteritis. No evidence of bowel obstruction. 2. Small amount of fluid around the liver and in the lower abdomen. 3. Coronary artery calcifications. Correlation with cardiac risk factors is recommended. Chest CT 01/06/21 02:37 IMPRESSION: 1. Thick-walled segments of small bowel in the central and left abdomen with surrounding stranding, suspicious for enteritis. No evidence of bowel obstruction. 2. Small amount of fluid around the liver and in the lower abdomen. 3. Coronary artery calcifications. Correlation with cardiac risk factors is recommended. Assessment and Plan (1) Enteritis: Status: Acute This is a 55 yo M with a PMH of IDDM, CKD 1. Acute Enteritis, suspected bacterial IV rocephin/flagyl IV fluids given, hold off on further fluids given history of CHF GI and Gen Surg consults patient does not have severe sepsis (patient has luekocytosis, but has chronic sinus tach) 2. SUSY on CKD stage 3 due to hypovoluemia IV fluids hold ESDRAS / other nephrotoxins SUSY not due to severe sepsis 3. Lactic acidosis resolved not due to severe sepsis 4. DM on clears for now, hold lantus and use sliding scale 5. Chronic Diastolic CHF hold diuretics 6. HTN Bp on the softer side, hold of on antihpyertensives; may need to use low dose coreg if HR uncontrolled, but for now will hold all antihypertensives 7. Asthma, chronic not in exacerbation, continue inhalers 8. Mood continue baseline meds nick is on Xarelto 2.5 mg BID -- unclear why. Given possibility of GI issues, will hold off today and if h/h remains stable, will restart in the next 24-48 hours. Full Code DVT pptx, mechanical for now Quality Stroke Does the patient have a stroke diagnosis?: No VTE Prior VTE?: No VTE Risk Level:: Medical - moderate - high VTE Device Contraindication: N/A - Device Ordered VTE Drug Contraindication: N/A - Med Ordered
[2021-01-06] MEDS: cefTRIAXone sodium 1 GM in 0.9 % Sodium Chloride 50 ML IV (11:08)
[2021-01-06 11:30] LABS: Lactic Acid 1.7 mmol/L (0.5-2.0)
[2021-01-06] MEDS: metroNIDAZOLE/NS 500 MG/100 ML PIGGYBACK 100 MG IV ×2 (12:06→20:49)
[2021-01-06] MEDS: HYDROmorphone HCl 0.5 MG/0.5 ML SYRINGE IVPUSH ×2 (12:44→20:14)
--- NOTE | 2021-01-06 13:33 | P.CONGS_ITS ---
History of Present Illness Consult details Consult date: 01/06/21 Narrative: 55M referred for abdominal pain. The patient describes epigastric pain, sharp, starting yesterday. He says he has had some mild nausea with this without any vomitting. He says he has had similar pain in the past although nothing as severe as this. He denies any diarrhea either. He denies any recent travel. He lives at home but has an a who takes care of him. He has limited mobility and performance status because of his multiple medical problems including morbid obesity, sleep apnea, and chronic kidney di sease. He denies seeing per rectum. He denies hematemesis. Review of Systems Constitutional: Constitutional: Denies chills and Denies fever(s) Cardiovascular: Cardiovascular: Denies chest pain, Denies dyspnea and Reports dyspnea on exertion Respiratory: Respiratory: Denies cough, Denies dyspnea and Reports dyspnea on exertion Gastrointestinal: Gastrointestinal: Denies hematochezia and Denies change in bowel habits Genitourinary: Genitourinary: Denies hematuria and Denies difficulty urinating Musculoskeletal: Musculoskeletal: Denies back pain and Denies limited range of motion Neurologic: Denies focal weakness and Denies convulsions Psychiatric: Psychiatric: Denies depression and Denies mood swings PMFSH Past Medical History Medical History Angina of effort Asthma Blind right eye Cancer of eye CHF (congestive heart failure) Chronic kidney disease, stage 3 Chronic pain Dysphagia Essential hypertension GERD (gastroesophageal reflux disease) Hemiparesis affecting left side as late effect of cerebrovascular accident Hemiplegia affecting dominant side History of poliomyelitis Hyperlipidemia LDL goal <70 Left ventricular hypertrophy Mood disorder Morbid obesity Nasal polyps Obesity due to excess calories ARTEM (obstructive sleep apnea) Other pulmonary embolism and infarction Positive PPD Syncope Type 2 diabetes mellitus with hyperglycemia, with long-term current use of insulin Type 2 diabetes mellitus with polyneuropathy Uninodular goiter (nontoxic) Family History Family History Father Stroke Brain cancer CVD (cardiovascular disease) Diabetes Mother Diabetes Surgical History Surgical History History of cardiac catheterization History of coronary artery stent placement History of esophagogastroduodenoscopy (EGD) History of right knee joint replacement Hx of knee surgery Social History Social History Household Members: Significant Other Housing: Apartment Alcohol intake: current Alcohol intake frequency: does not drink Patient Tobacco Use Status: Never used Tobacco Advance Directives Date on File: 08/27/10 service: No Meds Allergies Allergy/AdvReac Type Severity Reaction Status Date / Time shellfish derived Allergy Severe SWOLLEN Verified 01/06/21 04:01 THROAT apple [Apple] Allergy Intermediate SWELLING Verified 01/06/21 04:01 egg [Egg] Allergy Intermediate HIVES Verified 01/06/21 04:01 influenza virus vaccine, Allergy Intermediate SWELLING Verified 01/06/21 04:01 specific [Influenza Virus Vacc,Specific] Penicillins Allergy Mild RASH Verified 01/06/21 04:01 lisinopril [Lisinopril] Allergy Unknown UNKNOWN Verified 01/06/21 04:01 nifedipine [From Procardia] Allergy Unknown UNKNOWN Verified 01/06/21 04:01 Active Medications: Current Medications Acetaminophen (Acetaminophen 325 Mg Tablet) 650 mg PO Q6H PRN PRN Reason: Pain, Mild (Pain Scale 1-3) Albuterol Sulfate (Albuterol Sulfate 90 Mcg 8 Gm Inhaler) 2 puff INHALE Q4H PRN PRN Reason: Wheezing Atorvastatin Calcium (Atorvastatin Calcium 40 Mg Tablet) 40 mg PO BEDTIME CINDI Duloxetine HCl (Duloxetine Hcl 60 Mg Capsule.Dr) 60 mg PO DAILY C[facility] Fluticasone Propionate (Fluticasone Propionate 100 Mcg Blst.W.Dev) 1 puff INHALE RBID CINDI Gabapentin (Gabapentin 100 Mg Capsule) 100 mg PO TID C[facility]I Hydromorphone HCl (Hydromorphone Hcl 0.5 Mg/0.5 Ml Syringe) 0.5 mg IVPUSH Q4H PRN; Protocol PRN Reason: Pain, Severe (Pain Scale 7-10) Last Admin: 01/06/21 12:44 Dose: 0.5 mg Documented by: Ceftriaxone Sodium 1 gm/ (Sodium Chloride) 50 mls @ 100 mls/hr IV Q24H [facility] Last Infusion: 01/06/21 11:38 Dose: Infused Documented by: Metronidazole (Flagyl) 500 mg in 100 mls @ 100 mls/hr IV Q8H [facility] Stop: 01/07/21 03:59 Last Admin: 01/06/21 12:06 Dose: 100 mls/hr Documented by: Insulin Human Lispro (Insulin Lispro 100 Unit/Ml 3 Ml Vial) 0 unit SUBCUT QIDACHS [facility]; Protocol Pantoprazole Sodium (Pantoprazole Sodium 40 Mg/10 Ml Vial) 40 mg IVPUSH BID@0630,1630 [facility] Pharmacy Consult (Consult Rx Perform Med Rec) 1 each MISCELLANE ONCE PRN PRN Reason: Consult order Quetiapine Fumarate (Quetiapine Fumarate 50 Mg Tablet) 150 mg PO BID@0700,1700 [facility] Sodium Chloride (0.9 % Sodium Chloride Flush 3 Ml Syringe) 3 ml IVFLUSH QSHIFT [facility] Topiramate (Topiramate 25 Mg Tablet) 50 mg PO BEDTIME [facility] Trazodone HCl (Trazodone Hcl 50 Mg Tablet) 150 mg PO BEDTIME [facility] Home Medications Medication Instructions Recorded Confirmed Last Taken Type albuterol sulfate 2.5 mg INHALATION QID 12/14/19 01/06/21 Unknown History amlodipine 10 mg tablet 10 mg PO DAILY 12/14/19 01/06/21 01/05/21 History carvedilol 25 mg tablet 25 mg PO BID 12/14/19 01/06/21 01/05/21 History chlorthalidone 25 mg tablet 12.5 mg PO DAILY 12/14/19 01/06/21 01/05/21 History duloxetine 60 mg capsule,delayed 60 mg PO DAILY 12/14/19 01/06/21 01/05/21 History release furosemide 20 mg tablet 20 mg PO DAILY 12/14/19 01/06/21 01/05/21 History gabapentin 100 mg capsule 100 mg PO TID 12/14/19 01/06/21 01/05/21 History lancets 33 gauge (TRUEplus Lancets) #100 ea 12/14/19 12/19/20 Unknown History lisinopril 10 mg tablet 10 mg PO DAILY 12/14/19 01/06/21 01/05/21 History loratadine 10 mg capsule 10 mg PO DAILY 12/14/19 01/06/21 01/05/21 History prazosin 2 mg capsule 2 mg PO BID 12/14/19 01/06/21 01/05/21 History quetiapine 300 mg tablet,extended 300 mg PO DAILY@1700 12/14/19 01/06/21 01/05/21 History release 24 hr rivaroxaban 2.5 mg tablet (Xarelto) 2.5 mg PO BID 12/14/19 01/06/21 01/05/21 History topiramate 50 mg tablet 50 mg PO BEDTIME 12/14/19 01/06/21 01/05/21 History trazodone 150 mg tablet 150 mg PO BEDTIME 12/14/19 01/06/21 01/05/21 History acetaminophen 500 mg tablet 500 mg PO Q6H PRN 03/22/20 01/06/21 Unknown History (Tylenol Extra Strength) atorvastatin 40 mg tablet 40 mg PO BEDTIME 12/19/20 01/06/21 01/05/21 History albuterol sulfate 90 mcg/actuation 2 puff INHALATION Q4-6H PRN 01/06/21 01/06/21 Unknown History aerosol inhaler dulaglutide 1.5 mg/0.5 mL 1.5 mg SUBCUT WE 01/06/21 01/06/21 01/01/21 History subcutaneous pen injector (Trulicity) fluticasone propionate 110 1 puff PO BID 01/06/21 01/06/21 01/05/21 History mcg/actuation HFA aerosol inhaler (Flovent HFA) fluticasone propionate 50 1 spray INTRANASAL DAILY 01/06/21 01/06/21 01/05/21 History mcg/actuation nasal spray,suspension insulin glargine 100 unit/mL (3 50 unit SUBCUT DAILY 01/06/21 01/06/21 01/05/21 History mL) subcutaneous pen (Lantus Solostar U-100 Insulin) oxycodone 5 mg capsule 5 mg PO BEDTIME 01/06/21 01/06/21 01/05/21 History trazodone 150 mg tablet 150 mg PO BEDTIME PRN 01/06/21 01/06/21 Unknown History Physical Exam Vital Signs: Vital Signs: Last Vital Signs Temp 97.7 F 01/06/21 12:08 Pulse 101 H 01/06/21 12:08 Resp 16 01/06/21 12:44 BP 117/77 01/06/21 12:08 Pulse Ox 97 01/06/21 12:08 Body Mass Index 42.9 Const: Other: Obese General: comfortable and no acute distress Orientation/consciousness: patient oriented x3 Neck: Neck: Yes no lymphadenopathy Resp: Auscultation: clear to auscultation bilaterally Cardio: Rhythm: regular rhythm GI: Other: Has tenderness and epigastric area, no guarding or rebound Palpation (GI): Soft to palpation, no guarding and not rigid Neuro: General: patient oriented x3 Results Labs Result diagrams: 01/07/21 04:45 01/07/21 04:45 Labs: Abnormal lab results 01/06/21 01/06/21 01/06/21 Range/Units 01:14 01:14 01:27 WBC 20.3 H (4.8-10.8) X10*3/uL RBC 4.56 L (4.60-5.80) X10*6/uL Hgb 12.3 L (14.0-18.0) g/dl Hct 38.9 L (42.0-52.0) % Neut % (Auto) 84.9 H (45-73) % Lymph % (Auto) 9.4 L (20-40) % Abs Immat Gran (auto) 0.09 H (0.00-0.03) X10*3/uL Absolute Neuts (auto) 17.2 H (2.0-8.3) x10*3/uL Carbon Dioxide 19 L (22-29) mmol/L BUN 47 H D (9-16) mg/dL Creatinine 2.33 H (0.5-1.4) mg/dL POC Glucose 235 H (60-115) mg/dL Random Glucose 234 H D (60-115) mg/dL Lactic Acid (0.5-2.0) mmol/L Lactic Acid Fup @ 2Hr (0.5-2.0) mmol/L Magnesium 1.4 L* (1.6-2.6) mg/dL 01/06/21 01/06/21 Range/Units 01:33 03:50 WBC (4.8-10.8) X10*3/uL RBC (4.60-5.80) X10*6/uL Hgb (14.0-18.0) g/dl Hct (42.0-52.0) % Neut % (Auto) (45-73) % Lymph % (Auto) (20-40) % Abs Immat Gran (auto) (0.00-0.03) X10*3/uL Absolute Neuts (auto) (2.0-8.3) x10*3/uL Carbon Dioxide (22-29) mmol/L BUN (9-16) mg/dL Creatinine (0.5-1.4) mg/dL POC Glucose (60-115) mg/dL Random Glucose (60-115) mg/dL Lactic Acid 2.3 H* (0.5-2.0) mmol/L Lactic Acid Fup @ 2Hr 3.7 H* (0.5-2.0) mmol/L Magnesium (1.6-2.6) mg/dL Short CBC 01/06/21 Range/Units 01:14 WBC 20.3 H (4.8-10.8) X10*3/uL Hgb 12.3 L (14.0-18.0) g/dl Hct 38.9 L (42.0-52.0) % Plt Count 349 (160-400) X10*3/uL BMP 01/06/21 01:14 Sodium 140 Potassium 3.9 Chloride 106 Carbon Dioxide 19 L BUN 47 H D Creatinine 2.33 H Calcium 9.2 Liver Function 01/06/21 Range/Units 01:14 Total Bilirubin 0.4 (0.0-1.0) mg/dL Direct Bilirubin 0.2 (0.0-0.5) mg/dL AST 13 (5-37) U/L ALT 13 (0-40) U/L Alkaline Phosphatase 83 (39-117) U/L Albumin 4.1 (3.5-5.0) g/dL Urine 01/06/21 Range/Units 03:50 Urine Color YELLOW Urine Appearance CLEAR Urine pH 5.5 (5.0-8.0) Ur Specific [place] 1.020 (1.005-1.025) Urine Protein NEG (NEG-TRACE) MG/DL Urine Glucose (UA) NEG (NEG) MG/DL All other labs normal. Assessment and Plan (1) Enteritis: Status: Acute I have reviewed his CAT scan and this shows thickened bowel segments centrally and towards the left. Overall clinical picture is highly suggestive of enteritis. Etiology however is uncertain. He does not appear septic. I am recommending bowel rest with NPO, IV fluid hydration and pain management. I explained this finding to him. I understands the plan as above. I will do serial abdominal exams and will follow him closely while he is in the hospital. His white count should be monitored as well. Procedures Date of Service Date of Service: 01/06/21
[2021-01-06] MEDS: Gabapentin 100 MG CAPSULE PO (14:36)
[2021-01-06] MEDS: Dextrose 5 % and 0.45 % NaCl 1,000 ML 50 ML IVCONT (14:36)
[2021-01-06 16:02] LABS: Glucose, Whole Blood 141 mg/dL (60-115)
[2021-01-06] MEDS: QUEtiapine Fumarate 50 MG TABLET 150 MG PO (16:05)
[2021-01-06] MEDS: Pantoprazole Sodium 40 MG/10 ML VIAL IVPUSH (16:05)
--- NOTE | 2021-01-06 17:55 | MHC.CM.PN ---
CM met with admitted patient with bed assignment pending.A&Ox3. No IMM necessary. HCP on file. HCP/S.O. Tonya Mckinney ([phone]). Pt lives with S.O. Tonya is his [employer]AG [employer]. Pt has 40 hours/week. Unsure of agency. Pt uses a wheelchair, has DM testing supplies, bathroom modifications and shower chair. Pt feels safe at home. Pt is fully vaccinated with Pfizer. Has not yet received his booster. D/C plan is home with continuation of existing services. Transportation provided by Tonya. CM to follow for d/c needs.
--- NOTE | 2021-01-06 18:04 | PM.EVENT ---
Event Note Date of Service: 01/06/21 Event Note: seen on afternoon rounds says he feels better still with some pain but improving has been stable abdomen remained soft and benign, tender in the epigastric area will continue to follow
--- NOTE | 2021-01-06 20:26 | PC.NURSE ---
Flagyl due at 1900, this RN spoke with pharmacy, medication unavailable at this time, waiting for pharmacy to bring medication to ed.
[2021-01-06 20:32] LABS: Glucose, Whole Blood 134 mg/dL (60-115)
--- NOTE | 2021-01-06 21:49 | PC.NURSE ---
Assumed care of patient at 1900, patient alert and oriented, denies nausea, reports 7/10 abdominal pain, mediated with prn dilaudid at 2013. Patient voiding in urinal.
[2021-01-07] VITALS (7 sets, daily range): BP systolic 108–141; BP diastolic 62–81; PULSE 80–100; RESP 17–18; TEMP 36.1–36.8; O2SAT 94–99
[2021-01-07] MEDS: HYDROmorphone HCl 0.5 MG/0.5 ML SYRINGE IVPUSH ×3 (04:04→17:54)
[2021-01-07] MEDS: metroNIDAZOLE/NS 500 MG/100 ML PIGGYBACK 100 MG IV (04:08)
[2021-01-07 05:04] LABS: Hematocrit 28.6 % (42.0-52.0); Hemoglobin 8.9 g/dl (14.0-18.0); Mean Corpuscular HGB Conc 31.1 g/dl (31.0-36.0); Mean Corpuscular Hemoglobin 27.2 pg (27.0-33.0); Mean Corpuscular Volume 87.5 fL (80.0-98.0); Mean Platelet Volume 10.4 fL (9.4-12.4); Platelet Count 243 X10*3/uL (160-400); Red Blood Count 3.27 X10*6/uL (4.60-5.80); Red Cell Distribution Width 14.7 % (11.0-16.0); White Blood Count 9.9 X10*3/uL (4.8-10.8)
[2021-01-07 05:28] LABS: Anion Gap 10 (12-20); Blood Urea Nitrogen 33 mg/dL (9-16); Calcium 8.6 mg/dL (8.4-10.2); Carbon Dioxide 24 mmol/L (22-29); Chloride 109 mmol/L (96-108); Creatinine Clr Calc Pharmacy 50.7; Estimated Glomerular Filt Rate 39; Glucose Random 156 mg/dL (60-115); Potassium 3.9 mmol/L (3.3-5.1); Sodium 139 mmol/L (135-145)
[2021-01-07] MEDS: Pantoprazole Sodium 40 MG/10 ML VIAL IVPUSH ×2 (05:33→17:48)
[2021-01-07 07:37] LABS: Glucose, Whole Blood 135 mg/dL (60-115)
[2021-01-07] MEDS: Gabapentin 100 MG CAPSULE PO ×3 (07:47→20:04)
[2021-01-07] MEDS: QUEtiapine Fumarate 50 MG TABLET 150 MG PO ×2 (07:47→17:47)
[2021-01-07] MEDS: DULoxetine HCl 60 MG CAPSULE.DR PO (07:48)
--- NOTE | 2021-01-07 10:13 | MHC.CM.PN ---
PER CONVERSATION WITH PHYSICIAN, DROP IN H&H QUESTION OF BLEED. WILL CONTINUE TO FOLLOW FOR DISCHARGE PLANS
[2021-01-07] MEDS: Dextrose 5 % and 0.45 % NaCl 1,000 ML 50 ML IVCONT (10:29)
[2021-01-07] MEDS: cefTRIAXone sodium 1 GM in 0.9 % Sodium Chloride 50 ML IV (10:29)
[2021-01-07 11:32] LABS: Glucose, Whole Blood 150 mg/dL (60-115)
--- NOTE | 2021-01-07 13:20 | P.PNIM_ITS ---
Subjective Subjective Date of Service: 01/07/21 <Tana Argueta NP - Last Filed: 01/07/21 13:42> 01/10/21 <Sree Santos MD - Last Filed: 01/10/21 08:29> Review of Systems Follow-up enteritis Mostly complaining of epigastric pain Denies nausea, vomiting, diarrhea All other systems are reviewed and are negative <Tana Argueta NP - Last Filed: 01/07/21 13:42> Physical Exam Vital Signs: Vital Signs: Last Vital Signs Temp 96.9 F 01/07/21 11:26 Pulse 95 01/07/21 11:26 Resp 18 01/07/21 11:26 BP 117/70 01/07/21 11:26 Pulse Ox 98 01/07/21 11:26 Body Mass Index 40.9 <Tana Argueta NP - Last Filed: 01/07/21 13:42> Appearing in no acute distress lung sounds are clear to auscultation heart regular rate rhythm, clear S1, S2 positive bowel sounds, abdomen is soft, nontender neuro patient is alert x3, no focal deficits <Tana Argueta NP - Last Filed: 01/07/21 13:42> Objective Data Active Medications Acetaminophen (Acetaminophen 325 Mg Tablet) 650 mg PO Q6H PRN PRN Reason: Pain, Mild (Pain Scale 1-3) Albuterol Sulfate (Albuterol Sulfate 90 Mcg 8 Gm Inhaler) 2 puff INHALE Q4H PRN PRN Reason: Wheezing Atorvastatin Calcium (Atorvastatin Calcium 40 Mg Tablet) 40 mg PO BEDTIME [facility] Last Admin: 01/06/21 20:17 Dose: Not Given Documented by: TATIANNA Non-Admin Reason: NPO Duloxetine HCl (Duloxetine Hcl 60 Mg Capsule.Dr) 60 mg PO DAILY [facility] Last Admin: 01/07/21 07:48 Dose: 60 mg Documented by: JAMES Fluticasone Propionate (Fluticasone Propionate 100 Mcg Blst.W.Dev) 1 puff INHALE RBID [facility] Last Admin: 01/07/21 07:23 Dose: Not Given Documented by: SALIMA Non-Admin Reason: Med Not Available Gabapentin (Gabapentin 100 Mg Capsule) 100 mg PO TID [facility] Last Admin: 01/07/21 07:47 Dose: 100 mg Documented by: JAMES Hydromorphone HCl (Hydromorphone Hcl 0.5 Mg/0.5 Ml Syringe) 0.5 mg IVPUSH Q4H PRN; Protocol PRN Reason: Pain, Severe (Pain Scale 7-10) Last Admin: 01/07/21 10:50 Dose: 0.5 mg Documented by: JAMES Ceftriaxone Sodium 1 gm/ (Sodium Chloride) 50 mls @ 100 mls/hr IV Q24H [facility] Last Infusion: 01/07/21 11:00 Dose: 0 mls/hr Documented by: JAMES Dextrose/Sodium Chloride (D51/2ns) 1,000 mls @ 50 mls/hr IVCONT .Q20H [facility] Last Admin: 01/07/21 10:29 Dose: 50 mls/hr Documented by: JAMES Insulin Human Lispro (Insulin Lispro 100 Unit/Ml 3 Ml Vial) 0 unit SUBCUT QIDACHS [facility]; Protocol Last Admin: 01/07/21 11:30 Dose: Not Given Documented by: JAMES Non-Admin Reason: No Insulin Coverage Pantoprazole Sodium (Pantoprazole Sodium 40 Mg/10 Ml Vial) 40 mg IVPUSH BID@0630,1630 [facility] Last Admin: 01/07/21 05:33 Dose: 40 mg Documented by: LINDSEY Pharmacy Consult (Consult Rx Perform Med Rec) 1 each MISCELLANE ONCE PRN PRN Reason: Consult order Quetiapine Fumarate (Quetiapine Fumarate 50 Mg Tablet) 150 mg PO BID@0700,1700 [facility] Last Admin: 01/07/21 07:47 Dose: 150 mg Documented by: JAMES Sodium Chloride (0.9 % Sodium Chloride Flush 3 Ml Syringe) 3 ml IVFLUSH QSHIFT [facility] Last Admin: 01/07/21 07:38 Dose: Not Given Documented by: JAMES Non-Admin Reason: IV Running Topiramate (Topiramate 25 Mg Tablet) 50 mg PO BEDTIME [facility] Last Admin: 01/06/21 20:17 Dose: Not Given Documented by: TATIANNA Non-Admin Reason: NPO Trazodone HCl (Trazodone Hcl 50 Mg Tablet) 150 mg PO BEDTIME [facility] Last Admin: 01/06/21 20:17 Dose: Not Given Documented by: TATIANNA Non-Admin Reason: NPO <Tana Argueta NP - Last Filed: 01/07/21 13:42> Labs CBC & Chem 7: : 01/10/21 07:36 01/09/21 05:20 <Tana Argueta NP - Last Filed: 01/07/21 13:42> Labs: Laboratory Results - last 24 hr 01/06/21 01/06/21 01/07/21 15:59 20:29 04:45 MCV 87.5 MCH 27.2 MCHC 31.1 RDW 14.7 Plt Count 243 D MPV 10.4 Absolute Nucleated RBC 0.000 Nucleated RBC % (auto) 0.0 Anion Gap Estim Creat Clear Calc Estimated GFR POC Glucose 141 H 134 H Random Glucose Calcium 01/07/21 01/07/21 01/07/21 04:45 07:30 11:23 MCV MCH MCHC RDW Plt Count MPV Absolute Nucleated RBC Nucleated RBC % (auto) Anion Gap 10 L Estim Creat Clear Calc 50.7 Estimated GFR 39 POC Glucose 135 H 150 H Random Glucose 156 H Calcium 8.6 D <Tana Argueta NP - Last Filed: 01/07/21 13:42> Microbiology Microbiology Results: Microbiology 01/06/21 01:48 Blood Culture - Preliminary Blood - Venous No growth after 24 hours. 01/06/21 01:48 Blood Culture - Preliminary Blood - Venous No growth after 24 hours. <Tana Argueta NP - Last Filed: 01/07/21 13:42> Assessment and Plan (1) Enteritis: Status: Acute <Tana Argueta NP - Last Filed: 01/07/21 13:42> (2) Asthma: Status: Acute <Tana Argueta NP - Last Filed: 01/07/21 13:42> (3) Chronic kidney disease, stage 3: Status: Acute <Tana Argueta NP - Last Filed: 01/07/21 13:42> (4) Morbid obesity: Status: Acute <Tana Argueta NP - Last Filed: 01/07/21 13:42> Assessment and Plan: This is a 55 yo M with a PMH of IDDM, CKD Acute Enteritis, suspected bacterial IV rocephin/flagyl IV fluids GI and Gen Surg consults patient does not have severe sepsis (patient has luekocytosis, but has chronic sinus tach) advance diet if clinically improving GI rec repeat CT scan with oral contrast, added for tomorrow SUSY on CKD stage 3 due to hypovolemia IV fluids hold ESDRAS SUSY not due to severe sepsis Lactic acidosis resolved not due to severe sepsis DM hold lantus and use sliding scale Chronic Diastolic CHF. No exacerbation Hold diuretics for now monitor for fluid overload closely HTN Soft blood pressures hold antihypertensives for now Asthma, chronic. No exacerbation continue inhalers Mental health continue baseline meds Hx of DVT/PE. Xarelto 2.5 mg BID. will hold off today and if h/h remains stable, restart tomorrow Obesity. BMI 41.0 Discussed the importance of weight management as this may contribute to worsening of other comorbidities. Full Code DVT pptx, mechanical for now Attending Dr. Santos <Tana Argueta NP - Last Filed: 01/07/21 13:42> Quality Stroke Does the patient have a stroke diagnosis?: No <Tana Argueta NP - Last Filed: 01/07/21 13:42> VTE Prior VTE?: No <Tana Argueta NP - Last Filed: 01/07/21 13:42> VTE Risk Level:: Medical - moderate - high <Tana Argueta NP - Last Filed: 01/07/21 13:42> VTE Device Contraindication: N/A - Device Ordered <Tana Argueta NP - Last Filed: 01/07/21 13:42> VTE Drug Contraindication: N/A - Med Ordered <Tana Argueta NP - Last Filed: 01/07/21 13:42>
--- NOTE | 2021-01-07 13:25 | PM.PNGS ---
Subjective Subjective Date of Service: 01/07/21 Interval history: Complaints of dizziness and headache Abdominal pain better No nausea vomiting Physical Exam Vital Signs: Vital Signs: Last Vital Signs Temp 96.9 F 01/07/21 11:26 Pulse 95 01/07/21 11:26 Resp 18 01/07/21 11:26 BP 117/70 01/07/21 11:26 Pulse Ox 98 01/07/21 11:26 Body Mass Index 40.9 Const: General: no acute distress Resp: Effort & Inspection: normal respiratory effort Cardio: Rate: regular rate GI: Other: Very minimal tenderness to deep palpation upper abdomen Palpation (GI): Soft to palpation, not firm, no guarding and not rigid Objective Data Active Medications Acetaminophen (Acetaminophen 325 Mg Tablet) 650 mg PO Q6H PRN PRN Reason: Pain, Mild (Pain Scale 1-3) Albuterol Sulfate (Albuterol Sulfate 90 Mcg 8 Gm Inhaler) 2 puff INHALE Q4H PRN PRN Reason: Wheezing Atorvastatin Calcium (Atorvastatin Calcium 40 Mg Tablet) 40 mg PO BEDTIME [facility] Last Admin: 01/06/21 20:17 Dose: Not Given Documented by: TATIANNA Non-Admin Reason: NPO Duloxetine HCl (Duloxetine Hcl 60 Mg Capsule.Dr) 60 mg PO DAILY [facility] Last Admin: 01/07/21 07:48 Dose: 60 mg Documented by: JAMES Fluticasone Propionate (Fluticasone Propionate 100 Mcg Blst.W.Dev) 1 puff INHALE RBID [facility] Last Admin: 01/07/21 07:23 Dose: Not Given Documented by: SALIMA Non-Admin Reason: Med Not Available Gabapentin (Gabapentin 100 Mg Capsule) 100 mg PO TID [facility] Last Admin: 01/07/21 07:47 Dose: 100 mg Documented by: JAMES Hydromorphone HCl (Hydromorphone Hcl 0.5 Mg/0.5 Ml Syringe) 0.5 mg IVPUSH Q4H PRN; Protocol PRN Reason: Pain, Severe (Pain Scale 7-10) Last Admin: 01/07/21 10:50 Dose: 0.5 mg Documented by: JAMES Ceftriaxone Sodium 1 gm/ (Sodium Chloride) 50 mls @ 100 mls/hr IV Q24H [facility] Last Infusion: 01/07/21 11:00 Dose: 0 mls/hr Documented by: JAMES Dextrose/Sodium Chloride (D51/2ns) 1,000 mls @ 50 mls/hr IVCONT .Q20H [facility] Last Admin: 01/07/21 10:29 Dose: 50 mls/hr Documented by: JAMES Insulin Human Lispro (Insulin Lispro 100 Unit/Ml 3 Ml Vial) 0 unit SUBCUT QIDACHS [facility]; Protocol Last Admin: 01/07/21 11:30 Dose: Not Given Documented by: JAMES Non-Admin Reason: No Insulin Coverage Pantoprazole Sodium (Pantoprazole Sodium 40 Mg/10 Ml Vial) 40 mg IVPUSH BID@0630,1630 [facility] Last Admin: 01/07/21 05:33 Dose: 40 mg Documented by: LINDSEY Pharmacy Consult (Consult Rx Perform Med Rec) 1 each MISCELLANE ONCE PRN PRN Reason: Consult order Quetiapine Fumarate (Quetiapine Fumarate 50 Mg Tablet) 150 mg PO BID@0700,1700 [facility] Last Admin: 01/07/21 07:47 Dose: 150 mg Documented by: JAMES Sodium Chloride (0.9 % Sodium Chloride Flush 3 Ml Syringe) 3 ml IVFLUSH QSHIFT [facility] Last Admin: 01/07/21 07:38 Dose: Not Given Documented by: JAMES Non-Admin Reason: IV Running Topiramate (Topiramate 25 Mg Tablet) 50 mg PO BEDTIME [facility] Last Admin: 01/06/21 20:17 Dose: Not Given Documented by: TATIANNA Non-Admin Reason: NPO Trazodone HCl (Trazodone Hcl 50 Mg Tablet) 150 mg PO BEDTIME [facility] Last Admin: 01/06/21 20:17 Dose: Not Given Documented by: TATIANNA Non-Admin Reason: NPO Labs CBC & Chem 7: 01/07/21 04:45 01/07/21 04:45 Labs: Laboratory Results - last 24 hr 01/06/21 01/06/21 01/07/21 15:59 20:29 04:45 MCV 87.5 MCH 27.2 MCHC 31.1 RDW 14.7 Plt Count 243 D MPV 10.4 Absolute Nucleated RBC 0.000 Nucleated RBC % (auto) 0.0 Anion Gap Estim Creat Clear Calc Estimated GFR POC Glucose 141 H 134 H Random Glucose Calcium 01/07/21 01/07/21 01/07/21 04:45 07:30 11:23 MCV MCH MCHC RDW Plt Count MPV Absolute Nucleated RBC Nucleated RBC % (auto) Anion Gap 10 L Estim Creat Clear Calc 50.7 Estimated GFR 39 POC Glucose 135 H 150 H Random Glucose 156 H Calcium 8.6 D Microbiology Microbiology Results: Microbiology 01/06/21 01:48 Blood Culture - Preliminary Blood - Venous No growth after 24 hours. 01/06/21 01:48 Blood Culture - Preliminary Blood - Venous No growth after 24 hours. Procedures Date of Service Date of Service: 01/07/21 Progress Note: A&P Assessment and plan (1) Enteritis: Status: Acute Assessment and Plan: Abdominal pain much improved Abdominal exam remains very benign Minimal tenderness Okay to start on clear liquids for today Rest of plan as per medical service Fall Risk Details Current Medications: Current Medications Acetaminophen (Acetaminophen 325 Mg Tablet) 650 mg PO Q6H PRN PRN Reason: Pain, Mild (Pain Scale 1-3) Albuterol Sulfate (Albuterol Sulfate 90 Mcg 8 Gm Inhaler) 2 puff INHALE Q4H PRN PRN Reason: Wheezing Atorvastatin Calcium (Atorvastatin Calcium 40 Mg Tablet) 40 mg PO BEDTIME [facility] Last Admin: 01/06/21 20:17 Dose: Not Given Documented by: Duloxetine HCl (Duloxetine Hcl 60 Mg Capsule.Dr) 60 mg PO DAILY [facility] Last Admin: 01/07/21 07:48 Dose: 60 mg Documented by: Fluticasone Propionate (Fluticasone Propionate 100 Mcg Blst.W.Dev) 1 puff INHALE RBID [facility] Last Admin: 01/07/21 07:23 Dose: Not Given Documented by: Gabapentin (Gabapentin 100 Mg Capsule) 100 mg PO TID [facility] Last Admin: 01/07/21 07:47 Dose: 100 mg Documented by: Hydromorphone HCl (Hydromorphone Hcl 0.5 Mg/0.5 Ml Syringe) 0.5 mg IVPUSH Q4H PRN; Protocol PRN Reason: Pain, Severe (Pain Scale 7-10) Last Admin: 01/07/21 10:50 Dose: 0.5 mg Documented by: Ceftriaxone Sodium 1 gm/ (Sodium Chloride) 50 mls @ 100 mls/hr IV Q24H [facility] Last Infusion: 01/07/21 11:00 Dose: Infused Documented by: Dextrose/Sodium Chloride (D51/2ns) 1,000 mls @ 50 mls/hr IVCONT .Q20H [facility] Last Admin: 01/07/21 10:29 Dose: 50 mls/hr Documented by: Insulin Human Lispro (Insulin Lispro 100 Unit/Ml 3 Ml Vial) 0 unit SUBCUT QIDACHS [facility]; Protocol Last Admin: 01/07/21 11:30 Dose: Not Given Documented by: Pantoprazole Sodium (Pantoprazole Sodium 40 Mg/10 Ml Vial) 40 mg IVPUSH BID@0630,1630 [facility] Last Admin: 01/07/21 05:33 Dose: 40 mg Documented by: Pharmacy Consult (Consult Rx Perform Med Rec) 1 each MISCELLANE ONCE PRN PRN Reason: Consult order Quetiapine Fumarate (Quetiapine Fumarate 50 Mg Tablet) 150 mg PO BID@0700,1700 [facility] Last Admin: 01/07/21 07:47 Dose: 150 mg Documented by: Sodium Chloride (0.9 % Sodium Chloride Flush 3 Ml Syringe) 3 ml IVFLUSH QSHIFT [facility] Last Admin: 01/07/21 07:38 Dose: Not Given Documented by: Topiramate (Topiramate 25 Mg Tablet) 50 mg PO BEDTIME [facility] Last Admin: 01/06/21 20:17 Dose: Not Given Documented by: Trazodone HCl (Trazodone Hcl 50 Mg Tablet) 150 mg PO BEDTIME [facility] Last Admin: 01/06/21 20:17 Dose: Not Given Documented by: Time Spent With Patient Time: Total time spent is greater than 50% in coordination of care (as documented) at patient's floor/unit and/or counseling patient: Time with patient: 15 - 24 minutes Quality Stroke Does the patient have a stroke diagnosis?: No VTE Prior VTE?: No VTE Risk Level:: Medical - moderate - high VTE Device Contraindication: N/A - Device Ordered VTE Drug Contraindication: N/A - Med Ordered
[2021-01-07 15:44] LABS: Glucose, Whole Blood 133 mg/dL (60-115)
[2021-01-07] MEDS: Fluticasone Propionate 100 MCG BLST.W.DEV 1 PUFF INHALE (19:26)
[2021-01-07] MEDS: traZODone HCL 50 MG TABLET 150 MG PO (20:04)
[2021-01-07] MEDS: Topiramate 25 MG TABLET 50 MG PO (20:04)
[2021-01-07] MEDS: Atorvastatin Calcium 40 MG TABLET PO (20:04)
[2021-01-07 20:05] LABS: Glucose, Whole Blood 116 mg/dL (60-115)
[2021-01-08] VITALS (8 sets, daily range): BP systolic 103–147; BP diastolic 64–79; PULSE 80–100; RESP 17–18; TEMP 36.3–36.9; O2SAT 96–99
[2021-01-08] MEDS: HYDROmorphone HCl 0.5 MG/0.5 ML SYRINGE IVPUSH ×3 (02:30→20:49)
[2021-01-08] MEDS: Pantoprazole Sodium 40 MG/10 ML VIAL IVPUSH ×2 (06:16→15:31)
[2021-01-08] MEDS: QUEtiapine Fumarate 50 MG TABLET 150 MG PO ×2 (06:17→17:45)
[2021-01-08] MEDS: Dextrose 5 % and 0.45 % NaCl 1,000 ML 50 ML IVCONT (06:20)
[2021-01-08] MEDS: Fluticasone Propionate 100 MCG BLST.W.DEV 1 PUFF INHALE ×2 (07:22→20:02)
[2021-01-08 07:31] LABS: Glucose, Whole Blood 121 mg/dL (60-115)
[2021-01-08 07:38] LABS: Hematocrit 27.6 % (42.0-52.0); Hemoglobin 8.5 g/dl (14.0-18.0); Mean Corpuscular HGB Conc 30.8 g/dl (31.0-36.0); Mean Corpuscular Hemoglobin 26.8 pg (27.0-33.0); Mean Corpuscular Volume 87.1 fL (80.0-98.0); Mean Platelet Volume 10.6 fL (9.4-12.4); Platelet Count 226 X10*3/uL (160-400); Red Blood Count 3.17 X10*6/uL (4.60-5.80); Red Cell Distribution Width 14.4 % (11.0-16.0); White Blood Count 8.4 X10*3/uL (4.8-10.8)
[2021-01-08] MEDS: Gabapentin 100 MG CAPSULE PO ×3 (08:33→20:37)
[2021-01-08] MEDS: DULoxetine HCl 60 MG CAPSULE.DR PO (08:33)
[2021-01-08] MEDS: cefTRIAXone sodium 1 GM in 0.9 % Sodium Chloride 50 ML IV (11:04)
[2021-01-08 11:16] LABS: Glucose, Whole Blood 176 mg/dL (60-115)
--- NOTE | 2021-01-08 11:32 | P.PNIM_ITS ---
Subjective Subjective Date of Service: 01/08/21 <JENNIFER Mahoney - Last Filed: 01/08/21 12:02> 01/10/21 <Sree Santos MD - Last Filed: 01/10/21 08:29> Interval History: seen and examined this morning follow up for enteritis complaining of ongoing epigastric abdominal pain and nausea <JENNIFER Mahoney - Last Filed: 01/08/21 12:02> Review of Systems Review of Systems: Yes all other systems are reviewed and are negative <JENNIFER Mahoney - Last Filed: 01/08/21 12:02> Constitutional Constitutional: Denies chills and Denies fever(s) <JENNIFER Mahoney - Last Filed: 01/08/21 12:02> Cardiovascular Cardiovascular: Denies chest pain <JENNIFER Mahoney - Last Filed: 01/08/21 12:02> Respiratory Respiratory: Denies cough <JENNIFER Mahoney - Last Filed: 01/08/21 12:02> Gastrointestinal Gastrointestinal: Reports abdominal pain and Reports nausea <JENNIFER Mahoney - Last Filed: 01/08/21 12:02> Physical Exam Vital Signs: Vital Signs: Last Vital Signs Temp 97.8 F 01/08/21 07:18 Pulse 80 01/08/21 07:18 Resp 18 01/08/21 07:18 BP 107/64 01/08/21 07:18 Pulse Ox 98 01/08/21 07:18 BMI result Body Mass Index 40.9 <JENNIFER Mahoney - Last Filed: 01/08/21 12:02> Const: General: no acute distress, alert and awake <JENNIFER Mahoney - Last Filed: 01/08/21 12:02> Nutritional Appearance: well nourished <JENNIFER Mahoney - Last Filed: 01/08/21 12:02> HENMT: Head: Yes normocephalic and Yes atraumatic <JENNIFER Mahoney - Last Filed: 01/08/21 12:02> Eyes: Sclerae: sclerae normal <JENNIFER Mahoney - Last Filed: 01/08/21 12:02> Resp: Effort & Inspection: normal respiratory effort and no respiratory distress <JENNIFER Mahoney - Last Filed: 01/08/21 12:02> Cardio: Rate: regular rate <JENNIFER Mahoney - Last Filed: 01/08/21 12:02> Rhythm: regular rhythm <JENNIFER Mahoney - Last Filed: 01/08/21 12:02> GI: Palpation (GI): Soft to palpation and nontender <JENNIFER Mahoney - Last Filed: 01/08/21 12:02> Neuro: Cranial nerves: Yes CN's II-XII intact bilaterally and Yes Bilaterally intact EOM present <JENNIFER Mahoney - Last Filed: 01/08/21 12:02> Extrem: General: Yes no pedal edema <JENNIFER Mahoney Last Filed: 01/08/21 12:02> Objective Data Active Medications Acetaminophen (Acetaminophen 325 Mg Tablet) 650 mg PO Q6H PRN PRN Reason: Pain, Mild (Pain Scale 1-3) Albuterol Sulfate (Albuterol Sulfate 90 Mcg 8 Gm Inhaler) 2 puff INHALE Q4H PRN PRN Reason: Wheezing Atorvastatin Calcium (Atorvastatin Calcium 40 Mg Tablet) 40 mg PO BEDTIME [facility] Last Admin: 01/07/21 20:04 Dose: 40 mg Documented by: CESAR Duloxetine HCl (Duloxetine Hcl 60 Mg Capsule.Dr) 60 mg PO DAILY [facility] Last Admin: 01/08/21 08:33 Dose: 60 mg Documented by: JAMES Fluticasone Propionate (Fluticasone Propionate 100 Mcg Blst.W.Dev) 1 puff INHALE RBID [facility] Last Admin: 01/08/21 07:22 Dose: 1 puff Documented by: ARIANNE Gabapentin (Gabapentin 100 Mg Capsule) 100 mg PO TID [facility] Last Admin: 01/08/21 08:33 Dose: 100 mg Documented by: JAMES Hydromorphone HCl (Hydromorphone Hcl 0.5 Mg/0.5 Ml Syringe) 0.5 mg IVPUSH Q4H PRN; Protocol PRN Reason: Pain, Severe (Pain Scale 7-10) Last Admin: 01/08/21 11:03 Dose: 0.5 mg Documented by: JAMES Ceftriaxone Sodium 1 gm/ (Sodium Chloride) 50 mls @ 100 mls/hr IV Q24H [facility] Last Admin: 01/08/21 11:04 Dose: 100 mls/hr Documented by: JAMES Dextrose/Sodium Chloride (D51/2ns) 1,000 mls @ 50 mls/hr IVCONT .Q20H [facility] Last Admin: 01/08/21 06:20 Dose: 50 mls/hr Documented by: CESAR Insulin Human Lispro (Insulin Lispro 100 Unit/Ml 3 Ml Vial) 0 unit SUBCUT QIDACHS [facility]; Protocol Last Admin: 01/08/21 07:54 Dose: Not Given Documented by: JAMES Non-Admin Reason: No Insulin Coverage Pantoprazole Sodium (Pantoprazole Sodium 40 Mg/10 Ml Vial) 40 mg IVPUSH BID@0630,1630 [facility] Last Admin: 01/08/21 06:16 Dose: 40 mg Documented by: CESAR Pharmacy Consult (Consult Rx Perform Med Rec) 1 each MISCELLANE ONCE PRN PRN Reason: Consult order Quetiapine Fumarate (Quetiapine Fumarate 50 Mg Tablet) 150 mg PO BID@0700,1700 [facility] Last Admin: 01/08/21 06:17 Dose: 150 mg Documented by: CESAR Sodium Chloride (0.9 % Sodium Chloride Flush 3 Ml Syringe) 3 ml IVFLUSH QSHIFT [facility] Last Admin: 01/08/21 08:34 Dose: Not Given Documented by: JAMES Non-Admin Reason: IV Running Topiramate (Topiramate 25 Mg Tablet) 50 mg PO BEDTIME [facility] Last Admin: 01/07/21 20:04 Dose: 50 mg Documented by: CESAR Trazodone HCl (Trazodone Hcl 50 Mg Tablet) 150 mg PO BEDTIME [facility] Last Admin: 01/07/21 20:04 Dose: 150 mg Documented by: CESAR <JENNIFER Mahoney - Last Filed: 01/08/21 12:02> Labs CBC & Chem 7: : 01/10/21 07:36 01/09/21 05:20 <JENNIFER Mahoney - Last Filed: 01/08/21 12:02> Labs: Laboratory Results - last 24 hr 01/07/21 01/07/21 01/07/21 11:23 15:39 19:27 MCV MCH MCHC RDW Plt Count MPV Absolute Nucleated RBC Nucleated RBC % (auto) POC Glucose 150 H 133 H 116 H 01/08/21 01/08/21 01/08/21 07:22 07:28 11:12 MCV 87.1 MCH 26.8 L MCHC 30.8 L RDW 14.4 Plt Count 226 MPV 10.6 Absolute Nucleated RBC 0.000 Nucleated RBC % (auto) 0.0 POC Glucose 121 H 176 H <JENNIFER Mahoney - Last Filed: 01/08/21 12:02> Microbiology Microbiology Results: Microbiology 01/06/21 01:48 Blood Culture - Preliminary Blood - Venous No growth after 48 hours. 01/06/21 01:48 Blood Culture - Preliminary Blood - Venous No growth after 48 hours. <JENNIFER Mahoney - Last Filed: 01/08/21 12:02> Assessment and Plan (1) Enteritis: Status: Acute <JENNIFER Mahoney - Last Filed: 01/08/21 12:02> Assessment and Plan: This is a 55 yo M with a PMH of IDDM, CKD Acute Enteritis, suspected bacterial. persistent epigastric abdominal pain Continue IV rocephin/flagyl, started 01/06 Continue IV fluids Seen by GI and Gen Surg, recs appreciated continue clear liqs -repeat CT scan with oral contrast Acute on chronic normocytic anemia significant drop in H/H since admission, but currently close to previous baseline no evidence of blood loss, stool occult pending follow CBC closely SUSY on CKD stage 3 due to hypovolemia IV fluids hold chlorthalidone, lasix, lisinopril SUSY not due to severe sepsis Lactic acidosis resolved not due to severe sepsis DM hold lantus and use sliding scale Chronic Diastolic CHF. No exacerbation lasix on hold monitor for fluid overload closely HTN Soft blood pressures hold antihypertensives for now Asthma, chronic. No exacerbation continue inhalers Mental health continue baseline meds Hx of DVT/PE. Xarelto 2.5 mg BID. will hold off today and if h/h remains stable, restart tomorrow Obesity. BMI 41.0 Discussed the importance of weight management as this may contribute to worsening of other comorbidities. Full Code DVT pptx, mechanical for now Attending Dr. Santos <JENNIFER Mahoney - Last Filed: 01/08/21 12:02> Quality Stroke Does the patient have a stroke diagnosis?: No <JENNIFER Mahoney - Last Filed: 01/08/21 12:02> VTE Prior VTE?: No <JENNIFER Mahoney - Last Filed: 01/08/21 12:02> VTE Risk Level:: Medical - moderate - high <JENNIFER Mahoney - Last Filed: 01/08/21 12:02> VTE Device Contraindication: N/A - Device Ordered <JENNIFER Mahoney - Last Filed: 01/08/21 12:02> VTE Drug Contraindication: N/A - Med Ordered <JENNIFER Mahoney - Last Filed: 01/08/21 12:02>
--- NOTE | 2021-01-08 11:48 | PM.PNGS ---
Subjective Subjective Date of Service: 01/08/21 Interval history: says he still has epigastric pain some nausea, no vomitting no diarrhea no fever Physical Exam Vital Signs: Vital Signs: Last Vital Signs Temp 97.9 F 01/08/21 11:38 Pulse 94 01/08/21 11:38 Resp 18 01/08/21 11:38 BP 116/74 01/08/21 11:38 Pulse Ox 96 01/08/21 11:38 BMI result Body Mass Index 40.9 Const: General: no acute distress Resp: Effort & Inspection: normal respiratory effort Cardio: Rate: regular rate GI: Other: Tender on the epigastric area Palpation (GI): Soft to palpation, not firm and no guarding Objective Data Active Medications Acetaminophen (Acetaminophen 325 Mg Tablet) 650 mg PO Q6H PRN PRN Reason: Pain, Mild (Pain Scale 1-3) Albuterol Sulfate (Albuterol Sulfate 90 Mcg 8 Gm Inhaler) 2 puff INHALE Q4H PRN PRN Reason: Wheezing Atorvastatin Calcium (Atorvastatin Calcium 40 Mg Tablet) 40 mg PO BEDTIME [facility] Last Admin: 01/07/21 20:04 Dose: 40 mg Documented by: CESAR Duloxetine HCl (Duloxetine Hcl 60 Mg Capsule.Dr) 60 mg PO DAILY [facility] Last Admin: 01/08/21 08:33 Dose: 60 mg Documented by: JAMES Fluticasone Propionate (Fluticasone Propionate 100 Mcg Blst.W.Dev) 1 puff INHALE RBID [facility] Last Admin: 01/08/21 07:22 Dose: 1 puff Documented by: ARIANNE Gabapentin (Gabapentin 100 Mg Capsule) 100 mg PO TID [facility] Last Admin: 01/08/21 08:33 Dose: 100 mg Documented by: JAMES Hydromorphone HCl (Hydromorphone Hcl 0.5 Mg/0.5 Ml Syringe) 0.5 mg IVPUSH Q4H PRN; Protocol PRN Reason: Pain, Severe (Pain Scale 7-10) Last Admin: 01/08/21 11:03 Dose: 0.5 mg Documented by: JAMES Ceftriaxone Sodium 1 gm/ (Sodium Chloride) 50 mls @ 100 mls/hr IV Q24H [facility] Last Admin: 01/08/21 11:04 Dose: 100 mls/hr Documented by: JAMES Dextrose/Sodium Chloride (D51/2ns) 1,000 mls @ 50 mls/hr IVCONT .Q20H [facility] Last Admin: 01/08/21 06:20 Dose: 50 mls/hr Documented by: CESAR Insulin Human Lispro (Insulin Lispro 100 Unit/Ml 3 Ml Vial) 0 unit SUBCUT QIDACHS [facility]; Protocol Last Admin: 01/08/21 07:54 Dose: Not Given Documented by: JAMES Non-Admin Reason: No Insulin Coverage Metronidazole (Metronidazole 500 Mg Tablet) 500 mg PO Q8H [facility] Pantoprazole Sodium (Pantoprazole Sodium 40 Mg/10 Ml Vial) 40 mg IVPUSH BID@0630,1630 [facility] Last Admin: 01/08/21 06:16 Dose: 40 mg Documented by: CESAR Pharmacy Consult (Consult Rx Perform Med Rec) 1 each MISCELLANE ONCE PRN PRN Reason: Consult order Quetiapine Fumarate (Quetiapine Fumarate 50 Mg Tablet) 150 mg PO BID@0700,1700 [facility] Last Admin: 01/08/21 06:17 Dose: 150 mg Documented by: CESAR Sodium Chloride (0.9 % Sodium Chloride Flush 3 Ml Syringe) 3 ml IVFLUSH QSHIFT [facility] Last Admin: 01/08/21 08:34 Dose: Not Given Documented by: JAMES Non-Admin Reason: IV Running Topiramate (Topiramate 25 Mg Tablet) 50 mg PO BEDTIME [facility] Last Admin: 01/07/21 20:04 Dose: 50 mg Documented by: CESAR Trazodone HCl (Trazodone Hcl 50 Mg Tablet) 150 mg PO BEDTIME [facility] Last Admin: 01/07/21 20:04 Dose: 150 mg Documented by: CESAR Labs CBC & Chem 7: 01/08/21 07:28 01/07/21 04:45 Labs: Laboratory Results - last 24 hr 01/07/21 01/07/21 01/08/21 15:39 19:27 07:22 MCV MCH MCHC RDW Plt Count MPV Absolute Nucleated RBC Nucleated RBC % (auto) POC Glucose 133 H 116 H 121 H 01/08/21 01/08/21 07:28 11:12 MCV 87.1 MCH 26.8 L MCHC 30.8 L RDW 14.4 Plt Count 226 MPV 10.6 Absolute Nucleated RBC 0.000 Nucleated RBC % (auto) 0.0 POC Glucose 176 H Microbiology Microbiology Results: Microbiology 01/06/21 01:48 Blood Culture - Preliminary Blood - Venous No growth after 48 hours. 01/06/21 01:48 Blood Culture - Preliminary Blood - Venous No growth after 48 hours. Procedures Date of Service Date of Service: 01/08/21 Progress Note: A&P Assessment and plan (1) Enteritis: Status: Acute Assessment and Plan: Still having pain No fever White count normal, hemoglobin low Repeat CT scan Okay to have clear liquids for now Will follow closely Fall Risk Details Current Medications: Current Medications Acetaminophen (Acetaminophen 325 Mg Tablet) 650 mg PO Q6H PRN PRN Reason: Pain, Mild (Pain Scale 1-3) Albuterol Sulfate (Albuterol Sulfate 90 Mcg 8 Gm Inhaler) 2 puff INHALE Q4H PRN PRN Reason: Wheezing Atorvastatin Calcium (Atorvastatin Calcium 40 Mg Tablet) 40 mg PO BEDTIME [facility] Last Admin: 01/07/21 20:04 Dose: 40 mg Documented by: Duloxetine HCl (Duloxetine Hcl 60 Mg Capsule.Dr) 60 mg PO DAILY [facility] Last Admin: 01/08/21 08:33 Dose: 60 mg Documented by: Fluticasone Propionate (Fluticasone Propionate 100 Mcg Blst.W.Dev) 1 puff INHALE RBID [facility] Last Admin: 01/08/21 07:22 Dose: 1 puff Documented by: Gabapentin (Gabapentin 100 Mg Capsule) 100 mg PO TID [facility] Last Admin: 01/08/21 08:33 Dose: 100 mg Documented by: Hydromorphone HCl (Hydromorphone Hcl 0.5 Mg/0.5 Ml Syringe) 0.5 mg IVPUSH Q4H PRN; Protocol PRN Reason: Pain, Severe (Pain Scale 7-10) Last Admin: 01/08/21 11:03 Dose: 0.5 mg Documented by: Ceftriaxone Sodium 1 gm/ (Sodium Chloride) 50 mls @ 100 mls/hr IV Q24H [facility] Last Admin: 01/08/21 11:04 Dose: 100 mls/hr Documented by: Dextrose/Sodium Chloride (D51/2ns) 1,000 mls @ 50 mls/hr IVCONT .Q20H [facility] Last Admin: 01/08/21 06:20 Dose: 50 mls/hr Documented by: Insulin Human Lispro (Insulin Lispro 100 Unit/Ml 3 Ml Vial) 0 unit SUBCUT QIDACHS [facility]; Protocol Last Admin: 01/08/21 07:54 Dose: Not Given Documented by: Metronidazole (Metronidazole 500 Mg Tablet) 500 mg PO Q8H [facility] Pantoprazole Sodium (Pantoprazole Sodium 40 Mg/10 Ml Vial) 40 mg IVPUSH BID@0630,1630 [facility] Last Admin: 01/08/21 06:16 Dose: 40 mg Documented by: Pharmacy Consult (Consult Rx Perform Med Rec) 1 each MISCELLANE ONCE PRN PRN Reason: Consult order Quetiapine Fumarate (Quetiapine Fumarate 50 Mg Tablet) 150 mg PO BID@0700,1700 [facility] Last Admin: 01/08/21 06:17 Dose: 150 mg Documented by: Sodium Chloride (0.9 % Sodium Chloride Flush 3 Ml Syringe) 3 ml IVFLUSH QSHIFT [facility] Last Admin: 01/08/21 08:34 Dose: Not Given Documented by: Topiramate (Topiramate 25 Mg Tablet) 50 mg PO BEDTIME [facility] Last Admin: 01/07/21 20:04 Dose: 50 mg Documented by: Trazodone HCl (Trazodone Hcl 50 Mg Tablet) 150 mg PO BEDTIME [facility] Last Admin: 01/07/21 20:04 Dose: 150 mg Documented by: Time Spent With Patient Time: Total time spent is greater than 50% in coordination of care (as documented) at patient's floor/unit and/or counseling patient: Time with patient: 15 - 24 minutes Quality Stroke Does the patient have a stroke diagnosis?: No VTE Prior VTE?: No VTE Risk Level:: Medical - moderate - high VTE Device Contraindication: N/A - Device Ordered VTE Drug Contraindication: N/A - Med Ordered
[2021-01-08] MEDS: Insulin Lispro 100 UNIT/ML 3 ML VIAL SUBCUT (12:00)
[2021-01-08] MEDS: metroNIDAZOLE 500 MG TABLET PO ×2 (14:24→20:38)
[2021-01-08] MEDS: Barium Sulfate Oral (Berry) 450 ML ORAL.SUSP 900 ML PO (15:24)
[2021-01-08] MEDS: Acetaminophen 325 MG TABLET 650 MG PO (15:30)
[2021-01-08 16:15] LABS: Glucose, Whole Blood 109 mg/dL (60-115)
[2021-01-08] MEDS: traZODone HCL 50 MG TABLET 150 MG PO (20:37)
[2021-01-08 20:38] LABS: Glucose, Whole Blood 125 mg/dL (60-115)
[2021-01-08] MEDS: Atorvastatin Calcium 40 MG TABLET PO (20:38)
[2021-01-08] MEDS: Topiramate 25 MG TABLET 50 MG PO (20:38)
[2021-01-08 21:03] LABS: Appearance Urine HAZY; Color Urine YELLOW; Glucose Urine UA NEG (NEG); Leukocyte Esterase Urine NEG (NEG); Nitrite Urine NEG (NEG); PH 5.5 (5.0-8.0); Urine Blood NEG (NEG); Urine Ketones NEG (NEG); Urine Protein NEG (NEG-TRACE)
[2021-01-08 21:06] LABS: OBS Int Ctl Valid YES; OBS1 NEGATIVE (NEGATIVE)
[2021-01-09] VITALS (11 sets, daily range): BP systolic 104–158; BP diastolic 62–90; PULSE 76–95; RESP 17–20; TEMP 36.1–36.9; O2SAT 95–99
[2021-01-09] MEDS: Dextrose 5 % and 0.45 % NaCl 1,000 ML 50 ML IVCONT (04:40)
[2021-01-09] MEDS: metroNIDAZOLE 500 MG TABLET PO ×3 (04:40→20:43)
[2021-01-09] MEDS: Pantoprazole Sodium 40 MG/10 ML VIAL IVPUSH (04:41)
[2021-01-09] MEDS: HYDROmorphone HCl 0.5 MG/0.5 ML SYRINGE IVPUSH ×3 (04:56→20:44)
[2021-01-09 05:49] LABS: MANUAL DIFF FLAG NO
[2021-01-09 05:51] LABS: Basophils Percent Auto 0.3 % (0-2); Eosinophils Absolute Auto 0.3 X10*3/uL (0.0-0.4); Eosinophils Percent Auto 3.3 % (0-4); Hematocrit 27.5 % (42.0-52.0); Hemoglobin 8.7 g/dl (14.0-18.0); Imm Gran Abs Auto 0.03 X10*3/uL (0.00-0.03); Imm Gran Pct Auto 0.3 % (0.0-0.4); Lymphocytes Absolute Auto 1.2 X10*3/uL (1.2-4.9); Lymphocytes Percent Auto 13.7 % (20-40); Mean Corpuscular HGB Conc 31.6 g/dl (31.0-36.0); Mean Corpuscular Hemoglobin 27.4 pg (27.0-33.0); Mean Corpuscular Volume 86.5 fL (80.0-98.0); Mean Platelet Volume 10.4 fL (9.4-12.4); Monocytes Absolute Auto 0.6 X10*3/uL (0.1-1.2); Monocytes Percent Auto 6.5 % (2-11); Neutrophils Absolute Auto 6.8 x10*3/uL (2.0-8.3); Neutrophils Percent Auto 75.9 % (45-73); Platelet Count 223 X10*3/uL (160-400); Red Blood Count 3.18 X10*6/uL (4.60-5.80)
[2021-01-09] MEDS: QUEtiapine Fumarate 50 MG TABLET 150 MG PO ×2 (06:05→17:19)
[2021-01-09 06:13] LABS: Anion Gap 12 (12-20); Blood Urea Nitrogen 17 mg/dL (9-16); Calcium 8.9 mg/dL (8.4-10.2); Carbon Dioxide 25 mmol/L (22-29); Chloride 105 mmol/L (96-108); Creatinine Clr Calc Pharmacy 60.9; Estimated Glomerular Filt Rate 49; Glucose Random 136 mg/dL (60-115); Potassium 3.7 mmol/L (3.3-5.1); Sodium 138 mmol/L (135-145)
[2021-01-09 07:47] LABS: Glucose, Whole Blood 135 mg/dL (60-115)
[2021-01-09] MEDS: DULoxetine HCl 60 MG CAPSULE.DR PO (08:19)
[2021-01-09] MEDS: Gabapentin 100 MG CAPSULE PO ×3 (08:19→20:43)
[2021-01-09] MEDS: Fluticasone Propionate 100 MCG BLST.W.DEV 1 PUFF INHALE ×2 (08:25→20:26)
[2021-01-09] MEDS: cefTRIAXone sodium 1 GM in 0.9 % Sodium Chloride 50 ML IV (11:01)
--- NOTE | 2021-01-09 11:18 | MHC.CM.PN ---
PLAN IS FOR ENDOSCOPY TODAY. PENDING RESULTS, POSSIBLE DC TO HOME WITH [employer].
[2021-01-09 11:37] LABS: Glucose, Whole Blood 113 mg/dL (60-115)
[2021-01-09] MEDS: Lactated Ringers 1,000 ML 100 ML IVCONT ×3 (12:21→22:58)
[2021-01-09 12:22] LABS: Glucose, Whole Blood 107 mg/dL (60-115)
--- NOTE | 2021-01-09 12:27 | MHC.SHP ---
Pre-Procedural Eval Section A Date of Service: 01/09/21 The patient is an INPATIENT: Yes The History & Physical has been completed within 30 days and I have reviewed it.: Yes Section B Chief Complaint: Abd pain Allergies: Allergies Allergy/AdvReac Type Severity Reaction Status Date / Time shellfish derived Allergy Severe SWOLLEN Verified 01/06/21 04:01 THROAT apple [Apple] Allergy Intermediate SWELLING Verified 01/06/21 04:01 egg [Egg] Allergy Intermediate HIVES Verified 01/06/21 04:01 influenza virus vaccine, Allergy Intermediate SWELLING Verified 01/06/21 04:01 specific [Influenza Virus Vacc,Specific] Penicillins Allergy Mild RASH Verified 01/06/21 04:01 lisinopril [Lisinopril] Allergy Unknown UNKNOWN Verified 01/06/21 04:01 nifedipine [From Procardia] Allergy Unknown UNKNOWN Verified 01/06/21 04:01 Plan Diagnosis/Plan: Unchanged I have reviewed the history and physical and performed a pertinent physical examination on my patient. No changes have occurred unless specified.
--- NOTE | 2021-01-09 13:11 | P.BOP_ITS ---
Brief Operative Note Date of Service: 01/09/21 Pre-op diagnosis: enteritis and pain Post-op diagnosis: same Procedure: see op note Surgeon: Valente Drake MD Anesthesia: MAC Was an [employer] [place] used for this Procedure?: No Estimated blood loss (mL): 0 Condition: stable Disposition: PACU
--- NOTE | 2021-01-09 13:12 | W.PM.OPN ---
Operative Note Operative Note Date of Service: 01/09/21 Narrative: Procedure Description: EGD FLEXIBLE TRANSORAL UPPER GASTROINTESTINAL ENDOSCOPY UPPER ENDOSCOPY and Push enteroscopy Consent: Indications for the procedure and potential complications of bleeding, perforation, reaction to medications and missed diagnosis were discussed with the patient and informed consent was obtained. Instrument: Olympus GIF H 190 J mid size upper endoscope and pediatric colonoscope Monitoring: Vital signs and clinical assessment, continuous EKG monitoring, Pulse oximetry, Carbon Dioxide monitoring and blood pressure monitoring were done throughout the procedure. Procedure: The patient was placed in the left lateral decubitis position and pre-procedure medications were administered and a bite block was placed. The endoscope was inserted into the mouth and advanced under direct vision to the third part of duodenum. A careful inspection was made as the upper endoscope was withdrawn including a retroflexed examination of the proximal stomach; Findings and interventions are described below. Findings: Larynx:normal Esophagus: GE junction at 40 cm, diaphragm hiatus at 40 cm, mild esophagitis, bx taken from GEJ Stomach: Patchy gastric erythema. Biopsies were obtained. Grade 2 flap valve on retroflexed examination of the cardia. There were x 2 red topped sessile polyps in the stomach body measuring 8-10 mm removed with cold snare Duodenum/jejunum: Normal bulb and descending duodenum, normal proximal jejunum-- bx taken Intervention: Biopsies as noted above, polypectomy with cold snare Impression/Findings: gastritis mild gastritis and esophagitis PLAN: await pathology advance diet as tolerated cont with ABX he feels better than he did on admission, can also increase pantoprazole to 40 mg daily can restart xarelto tomorrow
--- NOTE | 2021-01-09 14:05 | P.PNIM_ITS ---
Subjective Subjective Date of Service: 01/09/21 <JENNIFER Mahoney - Last Filed: 01/09/21 14:08> 01/10/21 <Sree Santos MD - Last Filed: 01/10/21 08:29> Interval History: Seen and examined this morning Follow-up for abdominal pain Still reporting some epigastric pain. Plan for endoscopy today <JENNIFER Mahoney - Last Filed: 01/09/21 14:08> Review of Systems Review of Systems: Yes all other systems are reviewed and are negative <JENNIFER Mahoney - Last Filed: 01/09/21 14:08> Constitutional Constitutional: Denies chills and Denies fever(s) <JENNIFER Mahoney - Last Filed: 01/09/21 14:08> Cardiovascular Cardiovascular: Denies chest pain <JENNIFER Mahoney - Last Filed: 01/09/21 14:08> Respiratory Respiratory: Denies cough <JENNIFER Mahoney - Last Filed: 01/09/21 14:08> Physical Exam Vital Signs: Vital Signs: Last Vital Signs Temp 98.5 F 01/09/21 13:35 Pulse 89 01/09/21 13:35 Resp 18 01/09/21 13:35 BP 104/68 01/09/21 13:35 Pulse Ox 98 01/09/21 13:35 BMI result Body Mass Index 40.9 <JENNIFER Mahoney - Last Filed: 01/09/21 14:08> Const: General: no acute distress, alert and awake <JENNIFER Mahoney - Last Filed: 01/09/21 14:08> Nutritional Appearance: well nourished <JENNIFER Mahoney - Last Filed: 01/09/21 14:08> HENMT: Head: Yes normocephalic and Yes atraumatic <JENNIFER Mahoney Last Filed: 01/09/21 14:08> Eyes: Sclerae: sclerae normal <JENNIFER Mahoney Last Filed: 01/09/21 14:08> Resp: Effort & Inspection: normal respiratory effort and no respiratory distress <JENNIFER Mahoney Last Filed: 01/09/21 14:08> Cardio: Rate: regular rate <JENNIFER Mahoney - Last Filed: 01/09/21 14:08> Rhythm: regular rhythm <JENNIFER Mahoney - Last Filed: 01/09/21 14:08> GI: Palpation (GI): Soft to palpation and nontender <JENNIFER Mahoney - Last Filed: 01/09/21 14:08> Neuro: Cranial nerves: Yes CN's II-XII intact bilaterally and Yes Bilaterally intact EOM present <JENNIFER Mahoney - Last Filed: 01/09/21 14:08> Extrem: General: Yes no pedal edema <JENNIFER Mahoney - Last Filed: 01/09/21 14:08> Objective Data Active Medications Acetaminophen (Acetaminophen 325 Mg Tablet) 650 mg PO Q6H PRN PRN Reason: Pain, Mild (Pain Scale 1-3) Last Admin: 01/08/21 15:30 Dose: 650 mg Documented by: CESAR Albuterol Sulfate (Albuterol Sulfate 90 Mcg 8 Gm Inhaler) 2 puff INHALE Q4H PRN PRN Reason: Wheezing Atorvastatin Calcium (Atorvastatin Calcium 40 Mg Tablet) 40 mg PO BEDTIME [facility] Last Admin: 01/08/21 20:38 Dose: 40 mg Documented by: CESAR Duloxetine HCl (Duloxetine Hcl 60 Mg Capsule.Dr) 60 mg PO DAILY [facility] Last Admin: 01/09/21 08:19 Dose: 60 mg Documented by: PARKER Fluticasone Propionate (Fluticasone Propionate 100 Mcg Blst.W.Dev) 1 puff INHALE RBID [facility] Last Admin: 01/09/21 08:25 Dose: 1 puff Documented by: HUBER Gabapentin (Gabapentin 100 Mg Capsule) 100 mg PO TID [facility] Last Admin: 01/09/21 08:19 Dose: 100 mg Documented by: PARKER Hydromorphone HCl (Hydromorphone Hcl 0.5 Mg/0.5 Ml Syringe) 0.5 mg IVPUSH Q4H PRN; Protocol PRN Reason: Pain, Severe (Pain Scale 7-10) Last Admin: 01/09/21 04:56 Dose: 0.5 mg Documented by: CESAR Ceftriaxone Sodium 1 gm/ (Sodium Chloride) 50 mls @ 100 mls/hr IV Q24H [facility] Last Infusion: 01/09/21 11:40 Dose: 0 mls/hr Documented by: PARKER Lactated Ringer's (Lr) 1,000 mls @ 100 mls/hr IVCONT .Q10H [facility] Last Infusion: 01/09/21 13:50 Dose: 0 mls/hr Documented by: CLARA Insulin Human Lispro (Insulin Lispro 100 Unit/Ml 3 Ml Vial) 0 unit SUBCUT QIDACHS [facility]; Protocol Last Admin: 01/09/21 11:39 Dose: Not Given Documented by: PARKER Non-Admin Reason: NPO Metronidazole (Metronidazole 500 Mg Tablet) 500 mg PO Q8H [facility] Last Admin: 01/09/21 04:40 Dose: 500 mg Documented by: CESAR Pantoprazole Sodium (Pantoprazole Sodium 40 Mg/10 Ml Vial) 40 mg IVPUSH BID@0630,1630 [facility] Last Admin: 01/09/21 04:41 Dose: 40 mg Documented by: CESAR Pharmacy Consult (Consult Rx Perform Med Rec) 1 each MISCELLANE ONCE PRN PRN Reason: Consult order Quetiapine Fumarate (Quetiapine Fumarate 50 Mg Tablet) 150 mg PO BID@0700,1700 [facility] Last Admin: 01/09/21 06:05 Dose: 150 mg Documented by: CESAR Sodium Chloride (0.9 % Sodium Chloride Flush 3 Ml Syringe) 3 ml IVFLUSH QSHIFT [facility] Last Admin: 01/09/21 08:20 Dose: Not Given Documented by: PARKER Non-Admin Reason: IV Running Topiramate (Topiramate 25 Mg Tablet) 50 mg PO BEDTIME [facility] Last Admin: 01/08/21 20:38 Dose: 50 mg Documented by: CESAR Trazodone HCl (Trazodone Hcl 50 Mg Tablet) 150 mg PO BEDTIME [facility] Last Admin: 01/08/21 20:37 Dose: 150 mg Documented by: CESAR <JENNIFER Mahoney - Last Filed: 01/09/21 14:08> Labs CBC & Chem 7: : 01/10/21 07:36 01/09/21 05:20 <JENNIFER Mahoney - Last Filed: 01/09/21 14:08> Labs: Laboratory Results - last 24 hr 01/08/21 01/08/21 01/08/21 16:09 20:33 20:50 MCV MCH MCHC RDW Plt Count MPV Immature Gran % (Auto) Neut % (Auto) Lymph % (Auto) Mcleod % (Auto) Eos % (Auto) Baso % (Auto) Lymph # (Auto) Mcleod # (Auto) Eos # (Auto) Baso # (Auto) Abs Immat Gran (auto) Absolute Neuts (auto) Absolute Nucleated RBC Nucleated RBC % (auto) Anion Gap Estim Creat Clear Calc Estimated GFR POC Glucose 109 125 H Random Glucose Calcium Urine Color YELLOW Urine Appearance HAZY Urine pH 5.5 Ur Specific [place] 1.020 Urine Protein NEG Urine Glucose (UA) NEG Urine Ketones NEG Urine Blood NEG Urine Nitrite NEG Ur Leukocyte Esterase NEG Stool Occult Blood 01/08/21 01/09/21 01/09/21 20:53 05:20 05:20 MCV 86.5 MCH 27.4 MCHC 31.6 RDW 14.0 Plt Count 223 MPV 10.4 Immature Gran % (Auto) 0.3 Neut % (Auto) 75.9 H Lymph % (Auto) 13.7 L Mcleod % (Auto) 6.5 Eos % (Auto) 3.3 Baso % (Auto) 0.3 Lymph # (Auto) 1.2 Mcleod # (Auto) 0.6 Eos # (Auto) 0.3 Baso # (Auto) 0.0 Abs Immat Gran (auto) 0.03 Absolute Neuts (auto) 6.8 Absolute Nucleated RBC 0.000 Nucleated RBC % (auto) 0.0 Anion Gap 12 Estim Creat Clear Calc 60.9 Estimated GFR 49 POC Glucose Random Glucose 136 H Calcium 8.9 Urine Color Urine Appearance Urine pH Ur Specific [place] Urine Protein Urine Glucose (UA) Urine Ketones Urine Blood Urine Nitrite Ur Leukocyte Esterase Stool Occult Blood NEGATIVE 01/09/21 01/09/21 01/09/21 07:18 11:11 12:18 MCV MCH MCHC RDW Plt Count MPV Immature Gran % (Auto) Neut % (Auto) Lymph % (Auto) Mcleod % (Auto) Eos % (Auto) Baso % (Auto) Lymph # (Auto) Mcleod # (Auto) Eos # (Auto) Baso # (Auto) Abs Immat Gran (auto) Absolute Neuts (auto) Absolute Nucleated RBC Nucleated RBC % (auto) Anion Gap Estim Creat Clear Calc Estimated GFR POC Glucose 135 H 113 107 Random Glucose Calcium Urine Color Urine Appearance Urine pH Ur Specific [place] Urine Protein Urine Glucose (UA) Urine Ketones Urine Blood Urine Nitrite Ur Leukocyte Esterase Stool Occult Blood <JENNIFER Mahoney - Last Filed: 01/09/21 14:08> Assessment and Plan (1) Enteritis: Status: Acute <JENNIFER Mahoney - Last Filed: 01/09/21 14:08> Assessment and Plan: This is a 55 yo M with a PMH of IDDM, CKD Acute Enteritis, suspected bacterial. Continue IV rocephin/flagyl, started 01/06 Seen by GI and Gen Surg, recs appreciated repeat ct scan looks improved abdominal pain Repeat abdominal scan looks improved, patient having persistent abdominal pain GI plan for EGD today, further management based on outcome Acute on chronic normocytic anemia H/H has remained stable SUSY on CKD stage 3 Improving IV fluids hold chlorthalidone, lasix, lisinopril Lactic acidosis resolved not due to severe sepsis DM hold lantus and use sliding scale Chronic Diastolic CHF. No exacerbation lasix on hold monitor for fluid overload closely HTN Soft blood pressures hold antihypertensives for now Asthma, chronic. No exacerbation continue inhalers Mental health continue baseline meds Hx of DVT/PE. Xarelto 2.5 mg BID, restart tomorrow Obesity. BMI 41.0 Discussed the importance of weight management as this may contribute to worsening of other comorbidities. Full Code DVT pptx, mechanical for now Attending Dr. Santos <JENNIFER Mahoney - Last Filed: 01/09/21 14:08> Quality Stroke Does the patient have a stroke diagnosis?: No <JENNIFER Mahoney - Last Filed: 01/09/21 14:08> VTE Prior VTE?: No <JENNIFER Mahoney - Last Filed: 01/09/21 14:08> VTE Risk Level:: Medical - moderate - high <JENNIFER Mahoney - Last Filed: 01/09/21 14:08> VTE Device Contraindication: N/A - Device Ordered <JENNIFER Mahoney - Last Filed: 01/09/21 14:08> VTE Drug Contraindication: N/A - Med Ordered <JENNIFER Mahoney - Last Filed: 01/09/21 14:08>
[2021-01-09 16:50] LABS: Glucose, Whole Blood 133 mg/dL (60-115)
[2021-01-09 20:41] LABS: Glucose, Whole Blood 101 mg/dL (60-115)
[2021-01-09] MEDS: Atorvastatin Calcium 40 MG TABLET PO (20:43)
[2021-01-09] MEDS: Topiramate 25 MG TABLET 50 MG PO (20:43)
[2021-01-09] MEDS: traZODone HCL 50 MG TABLET 150 MG PO (20:44)
[2021-01-10 04:00] VITALS: BP 133/87; PULSE 90; RESP 16; TEMP 36; O2SAT 98
[2021-01-10] MEDS: HYDROmorphone HCl 0.5 MG/0.5 ML SYRINGE IVPUSH (04:31)
[2021-01-10] MEDS: metroNIDAZOLE 500 MG TABLET PO ×2 (04:31→12:40)
[2021-01-10] MEDS: QUEtiapine Fumarate 50 MG TABLET 150 MG PO (06:12)
[2021-01-10] MEDS: Omeprazole 40 MG CAPSULE.DR PO (06:12)
[2021-01-10 07:48] LABS: Glucose, Whole Blood 98 mg/dL (60-115)
[2021-01-10 08:00] VITALS: BP 120/60; PULSE 86; RESP 17; TEMP 36.1; O2SAT 98
[2021-01-10 08:10] LABS: Hematocrit 27.2 % (42.0-52.0); Hemoglobin 8.6 g/dl (14.0-18.0); Mean Corpuscular HGB Conc 31.6 g/dl (31.0-36.0); Mean Corpuscular Hemoglobin 27.1 pg (27.0-33.0); Mean Corpuscular Volume 85.8 fL (80.0-98.0); Mean Platelet Volume 10.8 fL (9.4-12.4); Platelet Count 231 X10*3/uL (160-400); Red Blood Count 3.17 X10*6/uL (4.60-5.80); Red Cell Distribution Width 14.1 % (11.0-16.0); White Blood Count 8.6 X10*3/uL (4.8-10.8)
[2021-01-10 08:12] VITALS: PULSE 89; O2SAT 95
[2021-01-10] MEDS: Fluticasone Propionate 100 MCG BLST.W.DEV 1 PUFF INHALE (08:12)
[2021-01-10] MEDS: 0.9 % Sodium Chloride Flush 3 ML SYRINGE IVFLUSH (08:32)
[2021-01-10] MEDS: Gabapentin 100 MG CAPSULE PO (08:32)
[2021-01-10] MEDS: DULoxetine HCl 60 MG CAPSULE.DR PO (08:32)
[2021-01-10] MEDS: cefTRIAXone sodium 1 GM in 0.9 % Sodium Chloride 50 ML IV (11:08)
--- NOTE | 2021-01-10 11:30 | PM.DS ---
DS: Providers Provider Date of Service: 01/10/21 <JENNIFER Mahoney - Last Filed: 01/10/21 11:57> Date of admission: 01/06/21 10:41 <JENNIFER Mahoney - Last Filed: 01/10/21 11:57> Date of discharge: 01/10/21 <JENNIFER Mahoney - Last Filed: 01/10/21 11:57> Primary care physician: Toro Perez MD <JENNIFER Mahoney - Last Filed: 01/10/21 11:57> Consults: 01/06/21 10:44 Consult to Gastroenterology Routine Consulting Provider: Valente Drake Reason for consultation: enteritis 01/06/21 10:56 Consult to General Surgery Routine Consulting Provider: Earl Hudson Reason for consultation: abdominal pain, enteritis, elevated lactate <JENNIFER Mahoney - Last Filed: 01/10/21 11:57> Attending physician on discharge: Sree Santos <JENNIFER Mahoney - Last Filed: 01/10/21 11:57> Discharging clinician: Judith Rodrigues <JENNIFER Mahoney - Last Filed: 01/10/21 11:57> DS: Diagnosis Discharge Diagnosis (1) Enteritis: Status: Acute <JENNIFER Mahoney - Last Filed: 01/10/21 11:57> (2) Asthma: Status: Acute <JENNIFER Mahoney - Last Filed: 01/10/21 11:57> (3) Chronic kidney disease, stage 3: Status: Acute <JENNIFER Mahoney - Last Filed: 01/10/21 11:57> (4) Morbid obesity: Status: Acute <JENNIFER Mahoney - Last Filed: 01/10/21 11:57> (5) Gastritis: Status: Acute <JENNIFER Mahoney - Last Filed: 01/10/21 11:57> DS: Summary Hospital Course Hospital Course: From H&P on day of admission This is a 55 yo Tamaz[place] speaking M (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 The patient reports that he was in his usual state of health prior to this. He denies eating out of the ordinary. He denies any vomiting, diarrhea or constipation. Reports his last BM was the [employer]. He denies any fevers or chills. Denies any sick contacts. He denies NSAID use, reports only uses tylenol. He denies any chest pain, sob, cough. Denies any known sick COVID contacts. Abdominal pain. Initial CT scan showed evidence of enteritis. He was started on IV Rocephin Flagyl. He was seen in consultation by both Gastroenterology and General surgery. There is no indication for surgical intervention. After several days patient epigastric abdominal pain persisted and therefore patient underwent EGD on 01/09. EGD showed mild gastritis and esophagitis with no evidence of active bleeding. There are also 2 polyps in the stomach body which were removed with cold snare. Biopsies were taken and are pending at the time of discharge. dose of pantoprazole was increased to 40 mg daily. He was treated with 5 day course of antibiotics which she has completed in the hospital. His diet was advanced and he is stable for discharge home. He will return home to resume [employer] services. SUSY. Likely related to hypovolemia. He was treated with IV fluid. His Lasix, chlorthalidone, lisinopril were held. Chlorthalidone and lisinopril will be held on discharge. Lasix will be resumed. He will have repeat labs checked in 1 week. He should call to schedule follow-up appointment with his PCP to determine need to resume chlorthalidone and lisinopril. Blood pressure has been controlled off these medications. Anemia. Patient was noted to have drop in H&H from 12.3/38.9 on admission to 8.9/28.6 on 01/07. This was likely related to dehydration on admission and from IV fluid. H&H has been stable and upon review is near his baseline. There is no evidence of active bleeding and EGD was done, results as above. Xarelto was initially held but can be resumed on discharge. Hypertension. Blood pressure has been on lower side of normal. Blood pressure medications including lisinopril, chlorthalidone, Norvasc have been placed on hold until patient is able to follow-up with PCP early next week for repeat blood pressure check. Dose of Coreg has been decreased 125 mg b.i.d. to 12.5 mg b.i.d.. Dose of Lasix has remained unchanged. Diabetes. Patient's blood sugars have been within normal range. He has not required sliding scale coverage. He has not received Lantus while admitted to the hospital. Recommend to hold Lantus on discharge. Follow blood sugars before meals and at bedtime. As appetite improves may need to gradually up titrate dose of Lantus with oversight of PCP. Recommend PCP follow-up early next week. If blood sugars increased to around 200 range can resume Lantus at lower dose, recommend start 10 units. <JENNIFER Mahoney Last Filed: 01/10/21 11:57> Time Spent with Patient Time attestation: Total time spent providing and/or coordinating discharge services: <JENNIFER Mahoney Last Filed: 01/10/21 11:57> Discharge coordination time: Greater than 30 minutes <JENNIFER Mahoney Last Filed: 01/10/21 11:57> Quality: Stroke Does the patient have a stroke diagnosis?: No <JENNIFER Mahoney Last Filed: 01/10/21 11:57> Physical Exam Vital Signs: Vital Signs: Last Vital Signs Temp 97.0 F 01/10/21 08:00 Pulse 86 01/10/21 08:00 Resp 17 01/10/21 08:00 BP 120/60 01/10/21 08:00 Pulse Ox 98 01/10/21 08:00 BMI result Body Mass Index 40.9 <JENNIFER Mahoney Last Filed: 01/10/21 11:57> Const: General: no acute distress, alert and awake <JENNIFER Mahoney Last Filed: 01/10/21 11:57> Nutritional Appearance: well nourished <JENNIFER Mahoney Last Filed: 01/10/21 11:57> HENMT: Head: Yes normocephalic and Yes atraumatic <JENNIFER Mahoney Last Filed: 01/10/21 11:57> Eyes: Sclerae: sclerae normal <JENNIFER Mahoney Last Filed: 01/10/21 11:57> Resp: Effort & Inspection: normal respiratory effort and no respiratory distress <JENNIFER Mahoney - Last Filed: 01/10/21 11:57> Cardio: Rate: regular rate <JENNIFER Mahoney - Last Filed: 01/10/21 11:57> Rhythm: regular rhythm <JENNIFER Mahoney - Last Filed: 01/10/21 11:57> GI: Palpation (GI): Soft to palpation and nontender <JENNIFER Mahoney - Last Filed: 01/10/21 11:57> Neuro: Cranial nerves: Yes CN's II-XII intact bilaterally and Yes Bilaterally intact EOM present <JENNIFER Mahoney - Last Filed: 01/10/21 11:57> Extrem: General: Yes no pedal edema <JENNIFER Mahoney - Last Filed: 01/10/21 11:57> DS: Data Data Completed and Pending Completed studies during hospitalization [Text1]: Pending at discharge 01/09/21 12:58 Surgical [PTH] Routine <JENNIFER Mahoney - Last Filed: 01/10/21 11:57> Labs on day of discharge: Laboratory Results - last 24 hr 01/09/21 01/09/21 01/09/21 11:11 12:18 16:46 WBC RBC Hgb Hct MCV MCH MCHC RDW Plt Count MPV Absolute Nucleated RBC Nucleated RBC % (auto) POC Glucose 113 107 133 H 01/09/21 01/10/21 01/10/21 20:37 07:24 07:36 WBC 8.6 RBC 3.17 L Hgb 8.6 L Hct 27.2 L MCV 85.8 MCH 27.1 MCHC 31.6 RDW 14.1 Plt Count 231 MPV 10.8 Absolute Nucleated RBC 0.000 Nucleated RBC % (auto) 0.0 POC Glucose 101 98 Preliminary micro results at discharge 01/06/21 01:48 Blood Culture - Preliminary Blood - Venous No growth after 48 hours. 01/06/21 01:48 Blood Culture - Preliminary Blood - Venous No growth after 48 hours. <JENNIFER Mahoney - Last Filed: 01/10/21 11:57> Discharge Plan Discharge Patient Disposition: Home, Self-Care <JENNIFER Mahoney - Last Filed: 01/10/21 11:57> Discharge Diagnosis: Enteritis Gastritis SUSY <JENNIFER Mahoney - Last Filed: 01/10/21 11:57> Enteritis Gastritis SUSY <Sree Santos MD - Last Filed: 01/10/21 13:17> Referrals: Toro Silva MD [Primary Care Provider] - 1 Week (You have a telephone follow up appointment with Dr. Lawrence Perez on January 13 at 1:00 pm. Your doctor will call you at the time of your appointment.) Valente Drake MD [Physician] - 2 Months <JENNIFER Mahoney - Last Filed: 01/10/21 11:57> Discharge Medications: New carvedilol [Coreg] 12.5 mg tablet 12.5 mg PO BID 30 Days Qty: 60 RF: 0 Continued Trulance 3 mg tablet 3 mg PO DAILY Qty: 30 RF: 1 trazodone 150 mg tablet 150 mg PO BEDTIME PRN (Reason: Insomnia) RF: 0 fluticasone propionate 50 mcg/actuation spray,suspension 1 spray intranasal DAILY RF: 0 Flovent HFA 110 mcg/actuation HFA aerosol inhaler 1 puff PO BID RF: 0 oxycodone 5 mg capsule 5 mg PO BEDTIME RF: 0 albuterol sulfate 90 mcg/actuation Hfa Aerosol Inhaler 2 puff INHALATION Q4-6H PRN (Reason: Wheezing) RF: 0 Trulicity 1.5 mg/0.5 mL pen injector 1.5 mg subcut WE RF: 0 loratadine 10 mg capsule 10 mg PO DAILY RF: 0 topiramate 50 mg tablet 50 mg PO BEDTIME RF: 0 quetiapine 300 mg tablet extended release 24 hr 300 mg PO DAILY@1700 RF: 0 duloxetine 60 mg capsule,delayed release(DR/EC) 60 mg PO DAILY RF: 0 Xarelto 2.5 mg tablet 2.5 mg PO BID RF: 0 furosemide 20 mg tablet 20 mg PO DAILY RF: 0 gabapentin 100 mg capsule 100 mg PO TID RF: 0 trazodone 150 mg tablet 150 mg PO BEDTIME RF: 0 albuterol sulfate 2.5 mg /3 mL (0.083 %) solution for nebulization 2.5 mg inhalation QID RF: 0 acetaminophen [Tylenol Extra Strength] 500 mg tablet 500 mg PO Q6H PRN (Reason: Pain) RF: 0 simethicone 180 mg capsule 180 mg PO QID 30 Days Qty: 120 RF: 3 atorvastatin 40 mg tablet 40 mg PO BEDTIME RF: 0 Changed pantoprazole 20 mg tablet,delayed release (DR/EC) 40 mg PO DAILY 30 Days Qty: 30 RF: 0 Discontinued Lantus Solostar U-100 Insulin 100 unit/mL (3 mL) insulin pen 50 unit subcut DAILY RF: 0 lisinopril 10 mg tablet 10 mg PO DAILY RF: 0 carvedilol 25 mg tablet 25 mg PO BID RF: 0 amlodipine 10 mg tablet 10 mg PO DAILY RF: 0 Hold Instructions: Resume on 01/17/21. hold until discuss with PCP chlorthalidone 25 mg tablet 12.5 mg PO DAILY RF: 0 prazosin 2 mg capsule 2 mg PO BID RF: 0 No Action (DME) Wheelchair See Rx Instructions .Route .MEDSUPPLY Qty: 1 RF: 0 (DME) lancets [TRUEplus Lancets] 33 gauge misc See Rx Instructions .ROUTE .MEDSUPPLY Qty: 100 RF: 0 <JENNIFER Mahoney - Last Filed: 01/10/21 11:57> Discharge Orders: Discharge Order (Routine); Ordered 01/10/21 Ordered By: Judith Rodrigues <JENNIFER Mahoney - Last Filed: 01/10/21 11:57> Activity on Discharge: As tolerated <JENNIFER Mahoney - Last Filed: 01/10/21 11:57> As tolerated <Sree Santos MD - Last Filed: 01/10/21 13:17> Stand Alone Forms: Patient Portal Discharge page <JENNIFER Mahoney - Last Filed: 01/10/21 11:57> Other Ambulatory Orders: Basic Metabolic Panel (Routine) Timeframe: 1 Week Facility: [facility] - Location: Laboratory Ordered By: Judith Rodrigues Complete Blood Count no Diff (Routine) Timeframe: 1 Week Facility: [facility] - Location: Laboratory Ordered By: Judith Rodrigues <JENNIFER Mahoney - Last Filed: 01/10/21 11:57> Care Plan Goals: See below <JENNIFER Mahoney - Last Filed: 01/10/21 11:57> Health Concerns: Gastritis SUSY Anemia <JENNIFER Mahoney - Last Filed: 01/10/21 11:57> Plan of Treatment: Call to schedule follow-up appointment with your PCP for early next week Dose of pantoprazole has been increased to 40 mg daily You blood pressure have been low. Do not take Lisinopril, chlorthalidone, Lisinopril or Norvasc until you follow-up with your PCP and have blood pressure rechecked. Your dose of Coreg has been decreased to 12.5 mg b.i.d. Repeat labs in one week Schedule follow up appointment with GI Blood sugars have been in lower range. Do not take your Lantus for now. check blood sugars before meals and at bedtime. If blood sugars increase to around 180-200 resume Lantus at 10U and adjust based on PCP recommendation. <JENNIFER Mahoney - Last Filed: 01/10/21 11:57> Assessment: See discharge summary Attending Attestation: I have personally seen and examined the patient independently (on the date of service as documented by NPP), reviewed the NPP history, exam and?MDM and agree with the assessment and plan as?written <JENNIFER Mahoney - Last Filed: 01/10/21 11:57>
[2021-01-10 11:37] VITALS: BP 116/70; PULSE 97; RESP 18; TEMP 36.1; O2SAT 96
[2021-01-10 11:56] LABS: Glucose, Whole Blood 99 mg/dL (60-115)
--- NOTE | 2021-01-10 12:09 | MHC.CM.PN ---
PATIENT IS DC HOME WITH RESUMPTION OF HIS [employer]. RN AWARE OF PLAN.
[2021-01-10 12:17] VITALS: O2SAT 96
--- NOTE | 2021-01-10 13:34 | P.PNGS_ITS ---
Subjective Subjective Date of Service: 01/10/21 Interval history: Still complains of pain on the upper abdomen although he says that this is getting better slowly No nausea or vomiting He has we also points to the ribcage anteriorly he also has pain Physical Exam Vital Signs: Vital Signs: Last Vital Signs Temp 97.0 F 01/10/21 11:37 Pulse 97 01/10/21 11:37 Resp 18 01/10/21 11:37 BP 116/70 01/10/21 11:37 Pulse Ox 96 01/10/21 11:37 BMI result Body Mass Index 40.9 Const: General: no acute distress Chest: Other: tender on the lower ribs anteriorly and laterally on both, left more than the right Resp: Effort & Inspection: normal respiratory effort Cardio: Rate: regular rate GI: Other: some tenderness on the upper abdomen, no guarding rebound Palpation (GI): Soft to palpation Objective Data Active Medications Acetaminophen (Acetaminophen 325 Mg Tablet) 650 mg PO Q6H PRN PRN Reason: Pain, Mild (Pain Scale 1-3) Last Admin: 01/08/21 15:30 Dose: 650 mg Documented by: CESAR Albuterol Sulfate (Albuterol Sulfate 90 Mcg 8 Gm Inhaler) 2 puff INHALE Q4H PRN PRN Reason: Wheezing Atorvastatin Calcium (Atorvastatin Calcium 40 Mg Tablet) 40 mg PO BEDTIME [facility] Last Admin: 01/09/21 20:43 Dose: 40 mg Documented by: JD Duloxetine HCl (Duloxetine Hcl 60 Mg Capsule.Dr) 60 mg PO DAILY [facility] Last Admin: 01/10/21 08:32 Dose: 60 mg Documented by: MICHAELA Fluticasone Propionate (Fluticasone Propionate 100 Mcg Blst.W.Dev) 1 puff INHALE RBID [facility] Last Admin: 01/10/21 08:12 Dose: 1 puff Documented by: SALIMA Gabapentin (Gabapentin 100 Mg Capsule) 100 mg PO TID [facility] Last Admin: 01/10/21 08:32 Dose: 100 mg Documented by: MICHAELA Hydromorphone HCl (Hydromorphone Hcl 0.5 Mg/0.5 Ml Syringe) 0.5 mg IVPUSH Q4H PRN; Protocol PRN Reason: Pain, Severe (Pain Scale 7-10) Last Admin: 01/10/21 04:31 Dose: 0.5 mg Documented by: JD Ceftriaxone Sodium 1 gm/ (Sodium Chloride) 50 mls @ 100 mls/hr IV Q24H [facility] Last Infusion: 01/10/21 11:45 Dose: 0 mls/hr Documented by: MICHAELA Insulin Human Lispro (Insulin Lispro 100 Unit/Ml 3 Ml Vial) 0 unit SUBCUT QIDACHS [facility]; Protocol Last Admin: 01/10/21 12:27 Dose: Not Given Documented by: MICHAELA Non-Admin Reason: No Insulin Coverage Metronidazole (Metronidazole 500 Mg Tablet) 500 mg PO Q8H [facility] Last Admin: 01/10/21 12:40 Dose: 500 mg Documented by: MICHAELA Omeprazole (Omeprazole 40 Mg Capsule.Dr) 40 mg PO DAILY@0630 [facility] Last Admin: 01/10/21 06:12 Dose: 40 mg Documented by: JD Pharmacy Consult (Consult Rx Perform Med Rec) 1 each MISCELLANE ONCE PRN PRN Reason: Consult order Quetiapine Fumarate (Quetiapine Fumarate 50 Mg Tablet) 150 mg PO BID@0700,1700 [facility] Last Admin: 01/10/21 06:12 Dose: 150 mg Documented by: JD Sodium Chloride (0.9 % Sodium Chloride Flush 3 Ml Syringe) 3 ml IVFLUSH QSHIFT [facility] Last Admin: 01/10/21 08:32 Dose: 3 ml Documented by: MICHAELA Topiramate (Topiramate 25 Mg Tablet) 50 mg PO BEDTIME [facility] Last Admin: 01/09/21 20:43 Dose: 50 mg Documented by: JD Trazodone HCl (Trazodone Hcl 50 Mg Tablet) 150 mg PO BEDTIME [facility] Last Admin: 01/09/21 20:44 Dose: 150 mg Documented by: JD Labs CBC & Chem 7: 01/10/21 07:36 01/09/21 05:20 Labs: Laboratory Results - last 24 hr 01/09/21 01/09/21 01/10/21 16:46 20:37 07:24 MCV MCH MCHC RDW Plt Count MPV Absolute Nucleated RBC Nucleated RBC % (auto) POC Glucose 133 H 101 98 01/10/21 01/10/21 07:36 11:34 MCV 85.8 MCH 27.1 MCHC 31.6 RDW 14.1 Plt Count 231 MPV 10.8 Absolute Nucleated RBC 0.000 Nucleated RBC % (auto) 0.0 POC Glucose 99 Procedures Date of Service Date of Service: 01/10/21 Progress Note: A&P Assessment and plan (1) Epigastric pain: Status: Acute Assessment and Plan: had enteritis on admission follow-up CT scan shows resolution of inflammatory changes still with some pain although improving he is also tender on the ribcage on both the left and the right side - component of musculoskeletal pain likely diet as tolerated ambulate will continue to follow Fall Risk Details Current Medications: Current Medications Acetaminophen (Acetaminophen 325 Mg Tablet) 650 mg PO Q6H PRN PRN Reason: Pain, Mild (Pain Scale 1-3) Last Admin: 01/08/21 15:30 Dose: 650 mg Documented by: Albuterol Sulfate (Albuterol Sulfate 90 Mcg 8 Gm Inhaler) 2 puff INHALE Q4H PRN PRN Reason: Wheezing Atorvastatin Calcium (Atorvastatin Calcium 40 Mg Tablet) 40 mg PO BEDTIME [facility] Last Admin: 01/09/21 20:43 Dose: 40 mg Documented by: Duloxetine HCl (Duloxetine Hcl 60 Mg Capsule.Dr) 60 mg PO DAILY [facility] Last Admin: 01/10/21 08:32 Dose: 60 mg Documented by: Fluticasone Propionate (Fluticasone Propionate 100 Mcg Blst.W.Dev) 1 puff INHALE RBID [facility] Last Admin: 01/10/21 08:12 Dose: 1 puff Documented by: Gabapentin (Gabapentin 100 Mg Capsule) 100 mg PO TID [facility] Last Admin: 01/10/21 08:32 Dose: 100 mg Documented by: Hydromorphone HCl (Hydromorphone Hcl 0.5 Mg/0.5 Ml Syringe) 0.5 mg IVPUSH Q4H PRN; Protocol PRN Reason: Pain, Severe (Pain Scale 7-10) Last Admin: 01/10/21 04:31 Dose: 0.5 mg Documented by: Ceftriaxone Sodium 1 gm/ (Sodium Chloride) 50 mls @ 100 mls/hr IV Q24H [facility] Last Infusion: 01/10/21 11:45 Dose: Infused Documented by: Insulin Human Lispro (Insulin Lispro 100 Unit/Ml 3 Ml Vial) 0 unit SUBCUT QIDACHS [facility]; Protocol Last Admin: 01/10/21 12:27 Dose: Not Given Documented by: Metronidazole (Metronidazole 500 Mg Tablet) 500 mg PO Q8H [facility] Last Admin: 01/10/21 12:40 Dose: 500 mg Documented by: Omeprazole (Omeprazole 40 Mg Capsule.Dr) 40 mg PO DAILY@0630 [facility] Last Admin: 01/10/21 06:12 Dose: 40 mg Documented by: Pharmacy Consult (Consult Rx Perform Med Rec) 1 each MISCELLANE ONCE PRN PRN Reason: Consult order Quetiapine Fumarate (Quetiapine Fumarate 50 Mg Tablet) 150 mg PO BID@0700,1700 [facility] Last Admin: 01/10/21 06:12 Dose: 150 mg Documented by: Sodium Chloride (0.9 % Sodium Chloride Flush 3 Ml Syringe) 3 ml IVFLUSH QSHIFT [facility] Last Admin: 01/10/21 08:32 Dose: 3 ml Documented by: Topiramate (Topiramate 25 Mg Tablet) 50 mg PO BEDTIME [facility] Last Admin: 01/09/21 20:43 Dose: 50 mg Documented by: Trazodone HCl (Trazodone Hcl 50 Mg Tablet) 150 mg PO BEDTIME [facility] Last Admin: 01/09/21 20:44 Dose: 150 mg Documented by: Time Spent With Patient Time: Total time spent is greater than 50% in coordination of care (as documented) at patient's floor/unit and/or counseling patient: Time with patient: 15 - 24 minutes Quality Stroke Does the patient have a stroke diagnosis?: No VTE Prior VTE?: No VTE Risk Level:: Medical - moderate - high VTE Device Contraindication: N/A - Device Ordered VTE Drug Contraindication: N/A - Med Ordered
--- NOTE | 2021-01-10 14:09 | HO.POSTANES ---
Post Anesthesia Evaluation Post Anesthesia Evaluation Vital Signs: Vital Signs Temp Pulse Resp BP Pulse Ox 01/10/21 11:37 97.0 F 97 18 116/70 96 01/10/21 08:00 97.0 F 86 17 120/60 98 01/10/21 04:00 96.8 F 90 16 133/87 98 Anesthesia: Monitored Mental Status: Awake Pain Control: Satisfactory Nausea/Vomiting: None Hydration: Adequate Anesthesia-Related Issues: No Anes. Related Issues
== END 2021-01-10 15:15 | disposition home or self-care (01) | DRG 241 ==
LOC: HO.ED 04:50 → HO.EDOVER 11:00 → HO.S3 21:22
PROVIDERS: Internal Medicine Gastroenterology; Nurse Practitioner Acute Care; Admitting Provider Family Medicine; Emergency Provider Student in an Organized Health Care Education/Training Program; PCP Internal Medicine; Visit Provider Physician Assistant Medical
PROC: 0DJ08ZZ Inspection of Upper Intestinal Tract, Via Natural or Artificial Opening Endoscopic (ICD-10-PCS; CPT 43235; principal; 2021-01-09 13:10)
DX: K29.70 Gastritis, unspecified, without bleeding (principal); N17.9 Acute kidney failure, unspecified; E87.2 Acidosis; I13.0 Hypertensive heart and chronic kidney disease with heart failure and stage 1 through stage 4 chronic kidney disease, or unspecified chronic kidney disease; D63.1 Anemia in chronic kidney disease; E11.22 Type 2 diabetes mellitus with diabetic chronic kidney disease; I50.32 Chronic diastolic (congestive) heart failure; E11.40 Type 2 diabetes mellitus with diabetic neuropathy, unspecified; E66.01 Morbid (severe) obesity due to excess calories; Z68.41 Body mass index [BMI] 40.0-44.9, adult; K31.7 Polyp of stomach and duodenum; K20.90 Esophagitis, unspecified without bleeding; J45.909 Unspecified asthma, uncomplicated; N18.30 Chronic kidney disease, stage 3 unspecified; K52.9 Noninfective gastroenteritis and colitis, unspecified; Z86.718 Personal history of other venous thrombosis and embolism; Z86.711 Personal history of pulmonary embolism; Z20.822 Contact with and (suspected) exposure to COVID-19; Z79.51 Long term (current) use of inhaled steroids; Z79.899 Other long term (current) drug therapy
CPT/HCPCS: 36415; 71250; 74018; 74176; 80048; 80076; 81003; 82009; 82150; 82272; 82947; 83605; 83690; 83735; 83880; 84484; 85025; 85027; 85610; 86850; 86900; 86901; 87040; 87635; 88305; 88342; 93005; 96361; 96374; 96375; 99285; J0692; J0696; J1170; J3010; J3475

== ENCOUNTER → 2021-03-06 10:11 | Outpatient (BNVA) | payer MEDICAID, SELFPAY | PROVIDERS: PCP Internal Medicine; Referring Provider Internal Medicine; Visit Provider Nurse Practitioner | DX: K21.9 Gastro-esophageal reflux disease without esophagitis (principal); K29.70 Gastritis, unspecified, without bleeding | CPT/HCPCS: 99212 ==

== ENCOUNTER → 2021-04-29 08:28 | Outpatient (BNVA) | payer MEDICAID, SELFPAY | PROVIDERS: PCP Internal Medicine; Visit Provider Nurse Practitioner Gerontology | DX: E11.42 Type 2 diabetes mellitus with diabetic polyneuropathy (principal); E78.5 Hyperlipidemia, unspecified; E66.01 Morbid (severe) obesity due to excess calories; I10 Essential (primary) hypertension; Z68.39 Body mass index [BMI] 39.0-39.9, adult; Z79.4 Long term (current) use of insulin | CPT/HCPCS: 82947; 83036; 99212 ==

== ENCOUNTER 2021-05-07 09:55 | Outpatient (REF) | payer MEDICAID, SELFPAY ==
--- NOTE | ~2021-05-07 | US_ITS ---
EXAMINATION: US THYROID CLINICAL INFORMATION: Nontoxic multinodular goiter. COMPARISON: Thyroid ultrasound 04/22/2020. TECHNIQUE: Linear transducer grayscale and color Doppler examination with attention to the region of the thyroid. FINDINGS: SIZE: Measurements of the thyroid lobes and nodules are given in sagittal, anteroposterior and transverse dimensions respectively. Right Thyroid Lobe: 5.6 x 1.1 x 1.5 cm, volume 4.9 mL. Previously 5.8 x 1.3 x 1.9 cm, volume 7.2 mL. Parenchyma: The gland echotexture is heterogeneous. Thyroid vascularity is increased. Left Thyroid Lobe: 4.9 x 1.3 x 1.4 cm, volume 4.6 mL. Previously 5.3 x 1.4 x 1.7 cm, volume 6.4 mL. Parenchyma: The gland echotexture is heterogeneous. Thyroid vascularity is increased. Isthmus: 0.4 cm in maximum AP dimension. Previously 0.3 cm. Estimated total number of nodules greater than or equal to 1 cm: 0. Savings Counselor nodules are described as follows: 1. Location: Right isthmus. Size: 0.8 x 0.7 x 0.7 cm, volume 0.2 mL. Previously: 1.1 x 0.6 x 0.8 cm, volume 0.3 mL. Nodule characteristics: Composition: Solid (2). Echogenicity: Hypoechoic (2). Shape: Not taller than wide (0). Margins: Smooth (0). Echogenic Foci: None (0). ACR TI-RADS total points: 4 Previous: 4 ACR TI-RADS category: 4 Previous: 4 Significant change in size (>/= 20% in 2 dimensions and minimal increase of 2 mm or 50% or greater increase in volume): None Change in features: None Change in ACR TI-RADS risk category: No change NODES: No lymphadenopathy is seen in the tissue surrounding the thyroid gland. US/US thyroid IMPRESSION: Solitary nodule right isthmus, TI-RADS Category 4, stable compared to last study. Recommend continued follow-up. ACR TI-RADS RECOMMENDATION REFERENCE: Ultrasound-guided fine-needle aspiration, followup ultrasound, no further follow up. * TR1 (0 point) and TR 2 (2 points): No FNA or follow up * TR3 (3 points): FNA if more than or equal to 2.5 cm in maximum dimension, followup ultrasound in 1, 3 and 5 years if 1.5 to 2.4 cm in maximum dimension. * TR4 (4-6 points): FNA if more than or equal to 1.5 cm in maximum dimension, followup ultrasound in 1, 2, 3 and 5 years if 1 to 1.4 cm in maximum dimension. * TR5 (more than or equal to 7 points): FNA if more than or equal to 1 cm in maximum dimension, followup ultrasound every year for 5 years if 0.5 to 0.9 cm in maximum dimension. * TR3, TR4 or TR5 nodules that are below the size threshold for follow up receive no follow up.
== END 2021-05-07 09:56 | disposition home or self-care (01) ==
LOC: HO.US 09:55
PROVIDERS: Visit Provider Internal Medicine Endocrinology, Diabetes & Metabolism
DX: E04.2 Nontoxic multinodular goiter (principal)
CPT/HCPCS: 76536

== ENCOUNTER → 2021-06-17 12:26 | Outpatient (BNVA) | payer MEDICAID, SELFPAY | PROVIDERS: PCP Internal Medicine; Referring Provider Internal Medicine; Visit Provider Nurse Practitioner | DX: K29.70 Gastritis, unspecified, without bleeding (principal); K21.9 Gastro-esophageal reflux disease without esophagitis; K59.04 Chronic idiopathic constipation | CPT/HCPCS: 99212 ==

== ENCOUNTER → 2021-07-01 11:07 | Outpatient (BNVA) | payer MEDICAID, SELFPAY | PROVIDERS: PCP Internal Medicine; Visit Provider Internal Medicine Endocrinology, Diabetes & Metabolism | DX: E04.9 Nontoxic goiter, unspecified (principal) | CPT/HCPCS: 99212 ==

== ENCOUNTER 2021-10-06 12:11 | Emergency (ER) | payer MEDICAID, SELFPAY ==
--- NOTE | ~2021-10-06 | CT_ITS ---
EXAMINATION: CT HEAD WITHOUT CONTRAST CLINICAL INFORMATION: Headache. Dizziness. On Xarelto COMPARISON: CT head 07/29/2020 TECHNIQUE: Contiguous axial imaging was performed from the skull base to vertex without intravenous administration of contrast. Coronal and sagittal reformatted images are performed at the CT scanner. [This CT examination was performed using dose optimization techniques as appropriate, variously including the following: *Automated exposure control *Adjustment of mA and/or kV according to patient size (this includes techniques or standardized protocols for targeted exams where dose is matched to indication/reason for exam; i.e. extremities or head) *Use of iterative reconstruction technique] DLP: 770 mGy-cm. FINDINGS: There is no evidence of acute intracranial hemorrhage or territorial infarction. No abnormal mass-effect or midline shift is seen. [place]iteside to white matter differentiation is well preserved. No extra-axial fluid collections are identified. The ventricles are normal in size. There is no abnormal attenuation within the brain parenchyma. There is no osseous abnormality. The mastoid air cells and visualized portions of the paranasal sinuses are well-aerated. CT/CT head/brain wo con IMPRESSION: No acute intracranial pathology.
--- NOTE | 2021-10-06 12:12 | ECG_ITS ---
Test Reason : dissiness Blood Pressure : / mmHG Vent. Rate : 123 BPM Atrial Rate : 123 BPM P-R Int : 160 ms QRS Dur : 074 ms QT Int : 308 ms P-R-T Axes : 036 001 021 degrees QTc Int : 440 ms Sinus tachycardia Minimal voltage criteria for LVH, may be normal variant ( R in aVL ) Borderline ECG When compared with ECG of 06-JAN-2021 01:13, No significant change was found Referred By: Generic ED Physician Electronically Signed By:LISA MATHEW
[2021-10-06 12:16] VITALS: BP 165/94; PULSE 124; RESP 18; TEMP 36.7; O2SAT 98; BMI 40.5
[2021-10-06 12:30] LABS: MANUAL DIFF FLAG NO
[2021-10-06 12:34] LABS: Basophils Percent Auto 0.3 % (0-2); Eosinophils Absolute Auto 0.2 X10*3/uL (0.0-0.4); Eosinophils Percent Auto 1.6 % (0-4); Hematocrit 37.4 % (42.0-52.0); Hemoglobin 12.2 g/dl (14.0-18.0); Imm Gran Abs Auto 0.04 X10*3/uL (0.00-0.03); Imm Gran Pct Auto 0.3 % (0.0-0.4); Lymphocytes Absolute Auto 2.3 X10*3/uL (1.2-4.9); Lymphocytes Percent Auto 18.9 % (20-40); Mean Corpuscular HGB Conc 32.6 g/dl (31.0-36.0); Mean Corpuscular Hemoglobin 27.6 pg (27.0-33.0); Mean Corpuscular Volume 84.6 fL (80.0-98.0); Mean Platelet Volume 10.1 fL (9.4-12.4); Monocytes Absolute Auto 0.8 X10*3/uL (0.1-1.2); Monocytes Percent Auto 6.6 % (2-11); Neutrophils Absolute Auto 8.9 x10*3/uL (2.0-8.3); Neutrophils Percent Auto 72.3 % (45-73); Platelet Count 314 X10*3/uL (160-400); Red Blood Count 4.42 X10*6/uL (4.60-5.80); Red Cell Distribution Width 13.3 % (11.0-16.0); White Blood Count 12.4 X10*3/uL (4.8-10.8)
[2021-10-06 12:50] LABS: Alanine Aminotransferase 21 U/L (0-40); Albumin Level 4.4 g/dL (3.5-5.0); Alkaline Phosphatase 98 U/L (39-117); Anion Gap 16 (12-20); Aspartate Amino Transferase 16 U/L (5-37); Bilirubin Total 0.3 mg/dL (0.0-1.0); Blood Urea Nitrogen 26 mg/dL (9-16); Calcium 9.2 mg/dL (8.4-10.2); Carbon Dioxide 24 mmol/L (22-29); Chloride 106 mmol/L (96-108); Estimated Glomerular Filt Rate 35; Glucose Random 136 mg/dL (60-115); Potassium 3.9 mmol/L (3.3-5.1); Sodium 142 mmol/L (135-145); Total Protein 7.8 g/dL (6.5-8.0)
[2021-10-06 12:54] LABS: Troponin-I High Sensitivity 3.6 ng/L (<3.5-35.0)
[2021-10-06 12:57] LABS: COVID-19 Test Negative (Negative); IDNOW Serial# 16C4AD1C
--- NOTE | 2021-10-06 18:03 | ED_ITS ---
HPI - Dizziness General Chief Complaint: Dizziness Stated Complaint: Dizziness Time Seen by Provider: 10/06/21 16:28 Source: patient History of Present Illness HPI Narrative: Patient 55 years old with history of asthma, CHF, CKD stage 3 history of CVA with left-sided residual weakness, hypertension, mood disorder, type 2 diabetes comes here for 4 days of weakness and dizziness especially when standing. Patient does have dizziness for more than 1 year had a old left cerebellar infarct been followed by neurologist ENT specialist feels same as in the past on meclizine at home also takes lorazepam also has daily persistent headaches thought his hemoglobin is low that is why came to the hospital patient is on Xarelto for PE Related Data Home Medications Medication Instructions Recorded Confirmed albuterol sulfate 2.5 mg/3 mL 2.5 mg inhalation QID 12/14/19 01/06/21 (0.083 %) solution for nebulization duloxetine 60 mg capsule,delayed 60 mg PO DAILY 12/14/19 01/06/21 release furosemide 20 mg tablet 20 mg PO DAILY 12/14/19 04/29/21 gabapentin 100 mg capsule 100 mg PO TID 12/14/19 01/06/21 lancets 33 gauge (TRUEplus Lancets) #100 ea 12/14/19 12/19/20 loratadine 10 mg capsule 10 mg PO DAILY 12/14/19 01/06/21 quetiapine 300 mg tablet,extended 300 mg PO DAILY@1700 12/14/19 01/06/21 release 24 hr rivaroxaban 2.5 mg tablet (Xarelto) 2.5 mg PO BID 12/14/19 04/29/21 topiramate 50 mg tablet 50 mg PO BEDTIME 12/14/19 01/06/21 trazodone 150 mg tablet 150 mg PO BEDTIME 12/14/19 01/06/21 acetaminophen 500 mg tablet 500 mg PO Q6H PRN Pain 03/22/20 01/06/21 (Tylenol Extra Strength) atorvastatin 40 mg tablet 40 mg PO BEDTIME 12/19/20 04/29/21 albuterol sulfate 90 mcg/actuation 2 puff inhalation Q4-6H PRN 01/06/21 01/06/21 aerosol inhaler Wheezing fluticasone propionate 110 1 puff PO BID 01/06/21 01/06/21 mcg/actuation HFA aerosol inhaler (Flovent HFA) fluticasone propionate 50 1 spray intranasal DAILY 01/06/21 01/06/21 mcg/actuation nasal spray,suspension oxycodone 5 mg capsule 5 mg PO BEDTIME 01/06/21 01/06/21 trazodone 150 mg tablet 150 mg PO BEDTIME PRN Insomnia 01/06/21 01/06/21 Previous Rx's Medication Instructions Recorded simethicone 180 mg capsule 180 mg PO QID 30 days #120 caps 01/25/20 Wheelchair #1 ea 07/18/20 carvedilol 12.5 mg tablet (Coreg) 12.5 mg PO BID 30 days #60 tabs 01/10/21 calcium carbonate 300 mg (750 mg) 300 mg PO BID #60 tabs 03/06/21 chewable tablet (Tums E-X) blood-glucose meter (FreeStyle #1 ea 04/29/21 Lite Meter kit) dulaglutide 3 mg/0.5 mL 3 mg (0.5 mL) subcut QWEEK 28 days 04/29/21 subcutaneous pen injector #2 mL (Trulicity) lisinopril 30 mg tablet 30 mg PO DAILY #30 tabs 04/29/21 insulin glargine 100 unit/mL (3 10 unit (0.1 mL) subcut QAM #15 mL 05/29/21 mL) subcutaneous pen (Lantus Solostar U-100 Insulin) pantoprazole 40 mg tablet,delayed 40 mg PO BID 30 days #60 tabs 06/17/21 release (Protonix) plecanatide 3 mg tablet (Trulance) 3 mg PO DAILY #30 tabs 06/17/21 meclizine 12.5 mg tablet 12.5 mg PO TID PRN dizziness #20 10/06/21 tabs Allergies Allergy/AdvReac Type Severity Reaction Status Date / Time shellfish derived Allergy Severe SWOLLEN Verified 07/01/21 11:18 THROAT apple [Apple] Allergy Intermediate SWELLING Verified 07/01/21 11:18 egg [Egg] Allergy Intermediate HIVES Verified 07/01/21 11:18 influenza virus vaccine, Allergy Intermediate SWELLING Verified 07/01/21 11:18 specific [Influenza Virus Vacc,Specific] Penicillins Allergy Mild RASH Verified 07/01/21 11:18 lisinopril [Lisinopril] Allergy Unknown UNKNOWN Verified 07/01/21 11:18 nifedipine [From Procardia] Allergy Unknown UNKNOWN Verified 07/01/21 11:18 Review of Systems Review of Systems: Yes all other systems are reviewed and are negative [facility] Past Medical History Medical History Angina of effort Asthma Blind right eye Cancer of eye CHF (congestive heart failure) Chronic kidney disease, stage 3 Chronic pain Dysphagia Essential hypertension GERD (gastroesophageal reflux disease) Hemiparesis affecting left side as late effect of cerebrovascular accident Hemiplegia affecting dominant side History of poliomyelitis Hyperlipidemia LDL goal <70 Left ventricular hypertrophy Mood disorder Morbid obesity Nasal polyps Obesity due to excess calories ARTEM (obstructive sleep apnea) Other pulmonary embolism and infarction Positive PPD Syncope Type 2 diabetes mellitus with hyperglycemia, with long-term current use of insu rhett Type 2 diabetes mellitus with polyneuropathy Uninodular goiter (nontoxic) Surgical History History of cardiac catheterization History of carpal tunnel surgery History of coronary artery stent placement History of esophagogastroduodenoscopy (EGD) History of right knee joint replacement Hx of knee surgery Family History Family History Father Stroke Brain cancer CVD (cardiovascular disease) Diabetes Mother Diabetes Social History Social History Household Members: Significant Other Housing: Apartment Alcohol intake: never Patient Tobacco Use Status: Never used Tobacco Use of substances other than those prescribed or required for medical reasons: No Advance Directives: No Advance Directives Information Provided: No Advance Directives Date on File: 08/27/10 service: No Physical Exam Vital Signs: Vital Signs: Last Vital Signs Temp 98.5 F 10/06/21 18:48 Pulse 107 H 10/06/21 20:14 Resp 16 10/06/21 20:14 BP 155/89 H 10/06/21 20:14 Pulse Ox 99 10/06/21 20:14 O2 Del Method 10/06/21 20:14 BMI result Body Mass Index 40.5 Appearance: Alert. Oriented X3. No acute distress. Eyes: PERRLA, No Nystagmus ENT: Pharynx normal. Oral Mucosa moist Neck: Normal inspection. Neck supple. CVS: Normal heart rate and rhythm. Pulses normal. Respiratory: No respiratory distress. Equal air entry bilateral, no wheezing/rales/rhonchi Abdomen: Soft and nontender. Bowel sounds are present, no mass palpable, no CVA tenderness Skin: Skin warm and dry. Normal skin color. Normal skin turgor. Extremities: No lower extremity edema. No calf tenderness Neuro: Oriented X 3. No motor deficit. No sensory deficit.No cerebellar signs , cranial nerves II-XII intact MDM - Dizziness MDM Narrative Medical decision making narrative: Patient with chronic vertigo with history of cerebellar stroke at this time patient clinically symptoms look like benign positional peripheral vertigo improved after Achilles advised follow-up with PCP pain and CTs negative Lab Data Attestation: I reviewed the patient's lab results. Result diagrams: 10/06/21 12:26 10/06/21 12:26 Labs: Lab Results 10/06/21 10/06/21 10/06/21 Range/Units 12:26 12:26 12:26 WBC 12.4 H (4.8-10.8) X10*3/uL RBC 4.42 L D (4.60-5.80) X10*6/uL Hgb 12.2 L D (14.0-18.0) g/dl Hct 37.4 L D (42.0-52.0) % MCV 84.6 (80.0-98.0) fL MCH 27.6 (27.0-33.0) pg MCHC 32.6 (31.0-36.0) g/dl RDW 13.3 (11.0-16.0) % Plt Count 314 D (160-400) X10*3/uL MPV 10.1 (9.4-12.4) fL Immature Gran % (Auto) 0.3 (0.0-0.4) % Neut % (Auto) 72.3 (45-73) % Lymph % (Auto) 18.9 L (20-40) % [place] % (Auto) 6.6 (2-11) % Eos % (Auto) 1.6 (0-4) % Baso % (Auto) 0.3 (0-2) % Lymph # (Auto) 2.3 (1.2-4.9) X10*3/uL [place] # (Auto) 0.8 (0.1-1.2) X10*3/uL Eos # (Auto) 0.2 (0.0-0.4) X10*3/uL Baso # (Auto) 0.0 (0.0-0.2) X10*3/uL Abs Immat Gran (auto) 0.04 H (0.00-0.03) X10*3/uL Absolute Neuts (auto) 8.9 H (2.0-8.3) x10*3/uL Absolute Nucleated RBC 0.000 (0.0-0.012) X10*3/uL Nucleated RBC % (auto) 0.0 (0.0-0.2) /100WBC Sodium 142 (135-145) mmol/L Potassium 3.9 (3.3-5.1) mmol/L Chloride 106 (96-108) mmol/L Carbon Dioxide 24 (22-29) mmol/L Anion Gap 16 (12-20) BUN 26 H D (9-16) mg/dL Creatinine 1.96 H (0.5-1.4) mg/dL Estim Creat Clear Calc 46.0 Estimated GFR 35 Random Glucose 136 H (60-115) mg/dL Calcium 9.2 (8.4-10.2) mg/dL Total Bilirubin 0.3 (0.0-1.0) mg/dL AST 16 (5-37) U/L ALT 21 (0-40) U/L Alkaline Phosphatase 98 (39-117) U/L Troponin I High Sens 3.6 (<3.5-35.0) ng/L Total Protein 7.8 (6.5-8.0) g/dL Albumin 4.4 (3.5-5.0) g/dL COVID-19 ([facility]) (Negative) COVID-19 Clin Com 10/06/21 Range/Units 12:26 WBC (4.8-10.8) X10*3/uL RBC (4.60-5.80) X10*6/uL Hgb (14.0-18.0) g/dl Hct (42.0-52.0) % MCV (80.0-98.0) fL MCH (27.0-33.0) pg MCHC (31.0-36.0) g/dl RDW (11.0-16.0) % Plt Count (160-400) X10*3/uL MPV (9.4-12.4) fL Immature Gran % (Auto) (0.0-0.4) % Neut % (Auto) (45-73) % Lymph % (Auto) (20-40) % [place] % (Auto) (2-11) % Eos % (Auto) (0-4) % Baso % (Auto) (0-2) % Lymph # (Auto) (1.2-4.9) X10*3/uL [place] # (Auto) (0.1-1.2) X10*3/uL Eos # (Auto) (0.0-0.4) X10*3/uL Baso # (Auto) (0.0-0.2) X10*3/uL Abs Immat Gran (auto) (0.00-0.03) X10*3/uL Absolute Neuts (auto) (2.0-8.3) x10*3/uL Absolute Nucleated RBC (0.0-0.012) X10*3/uL Nucleated RBC % (auto) (0.0-0.2) /100WBC Sodium (135-145) mmol/L Potassium (3.3-5.1) mmol/L Chloride (96-108) mmol/L Carbon Dioxide (22-29) mmol/L Anion Gap (12-20) BUN (9-16) mg/dL Creatinine (0.5-1.4) mg/dL Estim Creat Clear Calc Estimated GFR Random Glucose (60-115) mg/dL Calcium (8.4-10.2) mg/dL Total Bilirubin (0.0-1.0) mg/dL AST (5-37) U/L ALT (0-40) U/L Alkaline Phosphatase (39-117) U/L Troponin I High Sens (<3.5-35.0) ng/L Total Protein (6.5-8.0) g/dL Albumin (3.5-5.0) g/dL COVID-19 ([facility]) Negative (Negative) COVID-19 Clin Com See Note Discharge Plan Discharge Clinical Impression: Benign paroxysmal positional vertigo Patient Disposition: Home, Self-Care Instructions: Benign Paroxysmal Positional Vertigo (ED), Dizziness (ED) Additional Instructions: Take medication as prescribed And follow with PCP/neurology [place] la medicaci?n seg?n lo prescrito Y seguir con PCP/neurolog?a Prescriptions: New meclizine 12.5 mg tablet 12.5 mg PO TID PRN (Reason: dizziness) Qty: 20 0RF No Action (DME) Wheelchair See Rx Instructions .Route .MEDSUPPLY Qty: 1 0RF Rx Instructions: As directed Lantus Solostar U-100 Insulin 100 unit/mL (3 mL) insulin pen 10 unit subcut QAM Qty: 15 1RF trazodone 150 mg tablet 150 mg PO BEDTIME PRN (Reason: Insomnia) Rx Instructions: May take an addition 150 mg dose if needed fluticasone propionate 50 mcg/actuation spray,suspension 1 spray intranasal DAILY Flovent HFA 110 mcg/actuation HFA aerosol inhaler 1 puff PO BID oxycodone 5 mg capsule 5 mg PO BEDTIME albuterol sulfate 90 mcg/actuation Hfa Aerosol Inhaler 2 puff INHALATION Q4-6H PRN (Reason: Wheezing) carvedilol [Coreg] 12.5 mg tablet 12.5 mg PO BID 30 Days Qty: 60 0RF Rx Instructions: must administer with a meal/food loratadine 10 mg capsule 10 mg PO DAILY topiramate 50 mg tablet 50 mg PO BEDTIME quetiapine 300 mg tablet extended release 24 hr 300 mg PO DAILY@1700 Rx Instructions: take on an empty stomach duloxetine 60 mg capsule,delayed release(DR/EC) 60 mg PO DAILY Xarelto 2.5 mg tablet 2.5 mg PO BID (DME) lancets [TRUEplus Lancets] 33 gauge misc See Rx Instructions .ROUTE .MEDSUPPLY Qty: 100 Rx Instructions: As directed furosemide 20 mg tablet 20 mg PO DAILY gabapentin 100 mg capsule 100 mg PO TID trazodone 150 mg tablet 150 mg PO BEDTIME albuterol sulfate 2.5 mg /3 mL (0.083 %) solution for nebulization 2.5 mg inhalation QID acetaminophen [Tylenol Extra Strength] 500 mg tablet 500 mg PO Q6H PRN (Reason: Pain) simethicone 180 mg capsule 180 mg PO QID 30 Days Qty: 120 3RF Rx Instructions: after meals lisinopril 30 mg tablet 30 mg PO DAILY Qty: 30 6RF Trulicity 3 mg/0.5 mL pen injector 3 mg subcut QWEEK 28 Days Qty: 2 6RF (DME) blood-glucose meter [FreeStyle Lite Meter] Kit See Rx Instructions .ROUTE .MEDSUPPLY Qty: 1 0RF Rx Instructions: As directed 3x/day atorvastatin 40 mg tablet 40 mg PO BEDTIME pantoprazole [Protonix] 40 mg tablet,delayed release (DR/EC) 40 mg PO BID 30 Days Qty: 60 6RF Trulance 3 mg tablet 3 mg PO DAILY Qty: 30 6RF calcium carbonate [Tums E-X] 300 mg (750 mg) tablet,chewable 300 mg PO BID Qty: 60 6RF Interventions: ED Discharge Assessment Last Done: 10/06/21 21:27 Discharge Date/Time: 10/06/21 21:29 Print Language: Palestinian
[2021-10-06 18:48] VITALS: BP 145/90; PULSE 98; RESP 18; TEMP 36.9; O2SAT 97
[2021-10-06 18:50] VITALS: BP 153/93; PULSE 97
[2021-10-06 18:53] VITALS: BP 179/109; PULSE 117
[2021-10-06 18:54] VITALS: BP 166/108
[2021-10-06] MEDS: Meclizine HCl 12.5 MG TABLET PO (19:29)
[2021-10-06] MEDS: oxyCODONE HCl Immed Release 5 MG TABLET 10 MG PO (20:13)
[2021-10-06 20:14] VITALS: BP 155/89; PULSE 107; RESP 16; O2SAT 99
== END 2021-10-06 21:29 | disposition home or self-care (01) ==
PROVIDERS: Emergency Provider Internal Medicine; PCP Internal Medicine
DX: H81.10 Benign paroxysmal vertigo, unspecified ear (principal); Z20.822 Contact with and (suspected) exposure to COVID-19; E11.22 Type 2 diabetes mellitus with diabetic chronic kidney disease; I13.0 Hypertensive heart and chronic kidney disease with heart failure and stage 1 through stage 4 chronic kidney disease, or unspecified chronic kidney disease; N18.30 Chronic kidney disease, stage 3 unspecified; I50.9 Heart failure, unspecified; E66.9 Obesity, unspecified; Z68.41 Body mass index [BMI] 40.0-44.9, adult; Z86.711 Personal history of pulmonary embolism; Z79.4 Long term (current) use of insulin; Z79.01 Long term (current) use of anticoagulants; Z79.899 Other long term (current) drug therapy; Z79.02 Long term (current) use of antithrombotics/antiplatelets
CPT/HCPCS: 70450; 80053; 84484; 85025; 87635; 93005; 99284

== ENCOUNTER → 2021-12-25 10:20 | Outpatient (BNVA) | payer MEDICAID, SELFPAY | PROVIDERS: PCP Internal Medicine; Referring Provider Internal Medicine; Visit Provider Internal Medicine | DX: R00.0 Tachycardia, unspecified (principal); I10 Essential (primary) hypertension; G47.33 Obstructive sleep apnea (adult) (pediatric); J45.909 Unspecified asthma, uncomplicated; R53.81 Other malaise | CPT/HCPCS: 99212 ==

== ENCOUNTER → 2022-01-06 11:13 | Outpatient (BNVA) | payer MEDICAID, SELFPAY | PROVIDERS: PCP Internal Medicine; Visit Provider Nurse Practitioner | DX: Z01.818 Encounter for other preprocedural examination (principal); K59.04 Chronic idiopathic constipation; K21.9 Gastro-esophageal reflux disease without esophagitis; K29.70 Gastritis, unspecified, without bleeding; I50.9 Heart failure, unspecified; G47.33 Obstructive sleep apnea (adult) (pediatric); Z79.01 Long term (current) use of anticoagulants | CPT/HCPCS: 99212 ==

== ENCOUNTER 2022-10-21 10:51 | Day surgery (SDC) | payer MEDICAID, SELFPAY ==
--- NOTE | 2022-10-20 10:40 | HO.ANESPROP2 ---
Documented by User: Jaja Casarez NP 10/20/22 10:42 HPI - Anesthesia Eval Consult details Narrative: 57yo M for Colonoscopy Eliquis for hx PE Stable at yearly cardiology office visit 12/2021 COUNT INCLUDES THE [facility] Active Problems Active Problems: All Active Problems (Updated 01/06/22 @ 13:17 by HELENE Menchaca) Pre-op examination (Acute) Chronic anticoagulation (Acute) Pulmonary embolism (Acute) Gastritis (Acute) SUSY (acute kidney injury) (Acute) Anemia (Acute) Enteritis (Acute) Epigastric pain (Acute) Preoperative cardiovascular examination (Acute) Physical deconditioning (Acute) Sinus tachycardia (Acute) SOB (shortness of breath) (Acute) ARTEM (obstructive sleep apnea) (Acute) Mood disorder (Acute) CHF (congestive heart failure) (Acute) Colon cancer screening (Acute) Dysphagia (Acute) Uninodular goiter (nontoxic) (Acute) Right knee pain (Acute) Chronic pain (Acute) History of right knee joint replacement (Acute) History of poliomyelitis (Acute) Type 2 diabetes mellitus with polyneuropathy (Acute) Persistent headaches (Acute) GERD (gastroesophageal reflux disease) (Acute) Upper abdominal pain (Acute) Chronic idiopathic constipation (Acute) Obesity due to excess calories (Acute) Type 2 diabetes mellitus with hyperglycemia, with long-term current use of insulin (Acute) Hyperlipidemia LDL goal <70 (Acute) Essential hypertension (Acute) Goiter (Acute) Past Medical History Medical History Pulmonary embolism Dysphagia Uninodular goiter (nontoxic) Chronic pain Type 2 diabetes mellitus with polyneuropathy H. 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 CHF (congestive heart failure) History of poliomyelitis GERD (gastroesophageal reflux disease) Morbid obesity Mood disorder Nasal polyps Positive PPD Angina of effort ARTEM (obstructive sleep apnea) Hemiplegia affecting dominant side Asthma Other pulmonary embolism and infarction Left ventricular hypertrophy Syncope Type 2 diabetes mellitus with hyperglycemia, with long-term current use of insulin Hyperlipidemia LDL goal <70 Essential hypertension Family History Family History Father Stroke Brain cancer CVD (cardiovascular disease) Diabetes Mother Diabetes Family history of problems with anesthesia: No Surgical History Surgical History History of carpal tunnel surgery History of right knee joint replacement History of esophagogastroduodenoscopy (EGD) History of cardiac catheterization Hx of knee surgery History of coronary artery stent placement History of Problems with Anesthesia: No Social History Social History Household Members: Significant Other Housing: Apartment Alcohol intake: never Patient Tobacco Use Status: Never used Tobacco Are you DNR?: No Advance Directives: No Advance Directives Information Provided: Yes Advance Directives Date on File: 08/27/10 Nutrition Risks: No Nutritional Risk service: No Meds Allergies Allergy/AdvReac Type Severity Reaction Status Date / Time shellfish derived Allergy Severe SWOLLEN Verified 10/21/22 11:53 THROAT apple [Apple] Allergy Intermediate SWELLING Verified 10/21/22 11:53 egg [Egg] Allergy Intermediate HIVES Verified 10/21/22 11:53 influenza virus vaccine, Allergy Intermediate SWELLING Verified 10/21/22 11:53 specific [Influenza Virus Vacc,Specific] Penicillins Allergy Mild RASH Verified 10/21/22 11:53 lisinopril [Lisinopril] Allergy Unknown UNKNOWN Verified 10/21/22 11:53 nifedipine [From Procardia] Allergy Unknown UNKNOWN Verified 10/21/22 11:53 Home Medications Medication Instructions Recorded Confirmed Last Taken Type albuterol sulfate 2.5 mg/3 mL 2.5 mg inhalation QID 12/14/19 12/25/21 Unknown History (0.083 %) solution for nebulization duloxetine 60 mg capsule,delayed 60 mg PO DAILY 12/14/19 12/25/21 01/05/21 History release furosemide 20 mg tablet 20 mg PO DAILY 12/14/19 12/25/21 01/05/21 History gabapentin 100 mg capsule 100 mg PO TID 12/14/19 12/25/21 01/05/21 History lancets 33 gauge (TRUEplus Lancets) #100 ea 12/14/19 12/25/21 Unknown History quetiapine 300 mg tablet,extended 300 mg PO DAILY@1700 12/14/19 12/25/21 01/05/21 History release 24 hr rivaroxaban 2.5 mg tablet (Xarelto) 2.5 mg PO BID 12/14/19 12/25/21 01/05/21 History topiramate 50 mg tablet 50 mg PO BEDTIME 12/14/19 12/25/21 01/05/21 History acetaminophen 500 mg tablet 500 mg PO Q6H PRN Pain 03/22/20 12/25/21 Unknown History (Tylenol Extra Strength) albuterol sulfate 90 mcg/actuation 2 puff inhalation Q4-6H PRN 01/06/21 12/25/21 Unknown History aerosol inhaler Wheezing fluticasone propionate 110 1 puff PO BID 01/06/21 12/25/21 01/05/21 History mcg/actuation HFA aerosol inhaler (Flovent HFA) fluticasone propionate 50 1 spray intranasal DAILY 01/06/21 12/25/21 01/05/21 History mcg/actuation nasal spray,suspension trazodone 150 mg tablet 150 mg PO BEDTIME PRN Insomnia 01/06/21 12/25/21 Unknown History lisinopril 40 mg tablet 40 mg PO QAM 12/25/21 12/25/21 Unknown History loratadine 10 mg tablet (Allergy 10 mg PO DAILY 12/25/21 12/25/21 Unknown History Relief (loratadine)) alcohol swabs (Alcohol Prep Pads) 0 pad topical QID 01/06/22 Unknown History atorvastatin 80 mg tablet 80 mg PO BEDTIME 01/06/22 Unknown History blood sugar diagnostic (FreeStyle #10 ea 01/06/22 Unknown History Lite Strips) carvedilol 25 mg tablet 25 mg PO 01/06/22 Unknown History chlorthalidone 25 mg tablet 25 mg PO QAM 01/06/22 Unknown History ferrous sulfate 325 mg (65 mg 325 mg PO QPM 01/06/22 Unknown History iron) tablet (FeroSul) naloxone 4 mg/actuation nasal 0 spray intranasal 01/06/22 Unknown History spray (Narcan) oxycodone 5 mg tablet 5 mg PO BEDTIME 01/06/22 Unknown History pen needle, diabetic 32 gauge x #50 ea 01/06/22 Unknown History (Pentips) prazosin 2 mg capsule 2 mg PO 01/06/22 Unknown History Exam Exam Date and Time: October 20, 2022 1040 Narrative Narrative: Per 12/2021 cardiology visit: Last EKG shows sinus tachycardia as above, but this has been noted in the past. In a prior Holter, underlying rhythm was sinus with an average rate of 102/Min with frequent sinus tachycardia. Echocardiogram in the past had shown preserved LVEF at 60-65%, mild diastolic dysfunction otherwise unremarkable. Cardiac catheterization in 2013 had shown minimal irregularities. Assessment and Plan Assessment Anesthesia Assessment: Chart Reviewed Final Anesthetic Review Family History of Problems with Anesthesia: No History of Problems with Anesthesia: No Documented by User: Leatha Silva MD 10/21/22 13:36 HPI - Anesthesia Eval Consult details Narrative: 57yo M for Colonoscopy Xarelto for hx PE. Last dose 1 week ago Stable at yearly cardiology office visit 12/2021 COUNT INCLUDES THE [facility] Active Problems Active Problems: All Active Problems (Updated 10/21/22 @ 12:37 by Leatha Silva MD) Pre-op examination (Acute) Chronic anticoagulation (Acute) Pulmonary embolism (Acute) Gastritis (Acute) SUSY (acute kidney injury) (Acute) Anemia (Acute) Enteritis (Acute) Epigastric pain (Acute) Preoperative cardiovascular examination (Acute) Physical deconditioning (Acute) Sinus tachycardia (Acute) SOB (shortness of breath) (Acute) ARTEM (obstructive sleep apnea) (Acute). Awaiting CPAP Mood disorder (Acute) CHF (congestive heart failure) (Acute) Colon cancer screening (Acute) Dysphagia (Acute) Uninodular goiter (nontoxic) (Acute) Right knee pain (Acute) Chronic pain (Acute) History of right knee joint replacement (Acute) History of poliomyelitis (Acute) Type 2 diabetes mellitus with polyneuropathy (Acute) Persistent headaches (Acute) GERD (gastroesophageal reflux disease) (Acute) Upper abdominal pain (Acute) Chronic idiopathic constipation (Acute) Obesity due to excess calories (Acute) Type 2 diabetes mellitus with hyperglycemia, with long-term current use of insulin (Acute) Hyperlipidemia LDL goal <70 (Acute) Essential hypertension (Acute) Goiter (Acute) 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 CHF (congestive heart failure) History of poliomyelitis GERD (gastroesophageal reflux disease) Morbid obesity Mood disorder Nasal polyps Positive PPD Angina of effort ARTEM (obstructive sleep apnea) Hemiplegia affecting dominant side Asthma Other pulmonary embolism and infarction Left ventricular hypertrophy Syncope Type 2 diabetes mellitus with hyperglycemia, with long-term current use of insulin Hyperlipidemia LDL goal <70 Essential hypertension Family History Family History Father Stroke Brain cancer CVD (cardiovascular disease) Diabetes Mother Diabetes Surgical History Surgical History History of carpal tunnel surgery History of right knee joint replacement History of esophagogastroduodenoscopy (EGD) History of cardiac catheterization Hx of knee surgery History of coronary artery stent placement Social History Social History Household Members: Significant Other Housing: Apartment Alcohol intake: never Patient Tobacco Use Status: Never used Tobacco Are you DNR?: No Advance Directives: No Advance Directives Information Provided: Yes Advance Directives Date on File: 08/27/10 Nutrition Risks: No Nutritional Risk service: No Meds Allergies Allergy/AdvReac Type Severity Reaction Status Date / Time shellfish derived Allergy Severe SWOLLEN Verified 10/21/22 11:53 THROAT apple [Apple] Allergy Intermediate SWELLING Verified 10/21/22 11:53 egg [Egg] Allergy Intermediate HIVES Verified 10/21/22 11:53 influenza virus vaccine, Allergy Intermediate SWELLING Verified 10/21/22 11:53 specific [Influenza Virus Vacc,Specific] Penicillins Allergy Mild RASH Verified 10/21/22 11:53 lisinopril [Lisinopril] Allergy Unknown UNKNOWN Verified 10/21/22 11:53 nifedipine [From Procardia] Allergy Unknown UNKNOWN Verified 10/21/22 11:53 Home Medications Medication Instructions Recorded Confirmed Last Taken Type albuterol sulfate 2.5 mg/3 mL 2.5 mg inhalation QID 12/14/19 12/25/21 Unknown History (0.083 %) solution for nebulization duloxetine 60 mg capsule,delayed 60 mg PO DAILY 12/14/19 12/25/21 01/05/21 History release furosemide 20 mg tablet 20 mg PO DAILY 12/14/19 12/25/21 01/05/21 History gabapentin 100 mg capsule 100 mg PO TID 12/14/19 12/25/21 01/05/21 History lancets 33 gauge (TRUEplus Lancets) #100 ea 12/14/19 12/25/21 Unknown History quetiapine 300 mg tablet,extended 300 mg PO DAILY@1700 12/14/19 12/25/21 01/05/21 History release 24 hr rivaroxaban 2.5 mg tablet (Xarelto) 2.5 mg PO BID 12/14/19 12/25/21 01/05/21 History topiramate 50 mg tablet 50 mg PO BEDTIME 12/14/19 12/25/21 01/05/21 History acetaminophen 500 mg tablet 500 mg PO Q6H PRN Pain 03/22/20 12/25/21 Unknown History (Tylenol Extra Strength) albuterol sulfate 90 mcg/actuation 2 puff inhalation Q4-6H PRN 01/06/21 12/25/21 Unknown History aerosol inhaler Wheezing fluticasone propionate 110 1 puff PO BID 01/06/21 12/25/21 01/05/21 History mcg/actuation HFA aerosol inhaler (Flovent HFA) fluticasone propionate 50 1 spray intranasal DAILY 01/06/21 12/25/21 01/05/21 History mcg/actuation nasal spray,suspension trazodone 150 mg tablet 150 mg PO BEDTIME PRN Insomnia 01/06/21 12/25/21 Unknown History lisinopril 40 mg tablet 40 mg PO QAM 12/25/21 12/25/21 Unknown History loratadine 10 mg tablet (Allergy 10 mg PO DAILY 12/25/21 12/25/21 Unknown History Relief (loratadine)) alcohol swabs (Alcohol Prep Pads) 0 pad topical QID 01/06/22 Unknown History atorvastatin 80 mg tablet 80 mg PO BEDTIME 01/06/22 Unknown History blood sugar diagnostic (FreeStyle #10 ea 01/06/22 Unknown History Lite Strips) carvedilol 25 mg tablet 25 mg PO 01/06/22 Unknown History chlorthalidone 25 mg tablet 25 mg PO QAM 01/06/22 Unknown History ferrous sulfate 325 mg (65 mg 325 mg PO QPM 01/06/22 Unknown History iron) tablet (FeroSul) naloxone 4 mg/actuation nasal 0 spray intranasal 01/06/22 Unknown History spray (Narcan) oxycodone 5 mg tablet 5 mg PO BEDTIME 01/06/22 Unknown History pen needle, diabetic 32 gauge x #50 ea 01/06/22 Unknown History (Pentips) prazosin 2 mg capsule 2 mg PO 01/06/22 Unknown History Exam Height,Weight and Vital Signs: Height 5 ft 4 in Weight 107.048 kg Vital Signs Temp Pulse Resp BP Pulse Ox O2 Del Method 10/21/22 11:46 97.9 F 115 H 18 147/83 H 97 Room Air Pertinent Lab Results Pertinent Lab Results: Lab Results 10/21/22 Range/Units 11:49 POC Glucose 143 H (60-115) mg/dL Airway Mallampati Class: III TM Dist: >3cm Neck ROM: Full Denture: Upper Partial: Lower Loose/Missing/Broken Teeth: Yes (Denies broken or loose teeth) Heart: RRR Lungs: CTAB Assessment and Plan Assessment Anesthesia Assessment: Anesthesia Plan Discussed Final Anesthetic Review NPO: Yes ASA Class: IV Final Preanesthetic Review: No Changes in Pt Med Stat, Meds/Allgs Chart Reviewed, Consent Obtained/Reviewed and Anes Risks/Benef Reviewed Patient Risk: High Procedure Risk: Low Assessment/Block/Sedation in SS: Assess/Block/Sedation-SS Anesthetic Plan Anesthetic Plan: MAC: Disposition: Standard PACU
[2022-10-21 11:22] VITALS: BMI 40.5
[2022-10-21] MEDS: Lactated Ringers 1,000 ML 100 ML IVCONT (11:33)
[2022-10-21 11:46] VITALS: BP 147/83; PULSE 115; RESP 18; TEMP 36.6; O2SAT 97
[2022-10-21 11:52] LABS: Glucose, Whole Blood 143 mg/dL (60-115)
--- NOTE | 2022-10-21 12:43 | MHC.SHP ---
Pre-Procedural Eval Section A Date of Service: 10/21/22 Section B Chief Complaint: Anemia Details of Present Illness: Angina of effort Asthma Blind right eye Cancer of eye CHF (congestive heart failure) Chronic kidney disease, stage 3 Chronic pain Dysphagia Essential hypertension GERD (gastroesophageal reflux disease) H. pylori infection Hemiparesis affecting left side as late effect of cerebrovascular accident Hemiplegia affecting dominant side History of poliomyelitis Hyperlipidemia LDL goal <70 Left ventricular hypertrophy Mood disorder Morbid obesity Nasal polyps Obesity due to excess calories ARTEM (obstructive sleep apnea) Other pulmonary embolism and infarction Positive PPD Pulmonary embolism Syncope Type 2 diabetes mellitus with hyperglycemia, with long-term current use of insulin Type 2 diabetes mellitus with polyneuropathy Uninodular goiter (nontoxic) Surgical History History of cardiac catheterization History of carpal tunnel surgery History of coronary artery stent placement History of esophagogastroduodenoscopy (EGD) History of right knee joint replacement Hx of knee surgery Present Medications: see Short Stay Collaborative assessment Allergies: Allergies Allergy/AdvReac Type Severity Reaction Status Date / Time shellfish derived Allergy Severe SWOLLEN Verified 10/21/22 11:53 THROAT apple [Apple] Allergy Intermediate SWELLING Verified 10/21/22 11:53 egg [Egg] Allergy Intermediate HIVES Verified 10/21/22 11:53 influenza virus vaccine, Allergy Intermediate SWELLING Verified 10/21/22 11:53 specific [Influenza Virus Vacc,Specific] Penicillins Allergy Mild RASH Verified 10/21/22 11:53 lisinopril [Lisinopril] Allergy Unknown UNKNOWN Verified 10/21/22 11:53 nifedipine [From Procardia] Allergy Unknown UNKNOWN Verified 10/21/22 11:53 Review of Systems Review of Systems Comment: 10 point ROS negative Exam Exam Comment: Gen appear: NAD ABd: soft, nontender Chest: no resp effort Neuro: lower extremity weakness Plan Diagnosis/Plan: Unchanged I have reviewed the history and physical and performed a pertinent physical examination on my patient. No changes have occurred unless specified. Time Spent With Patient Time: Total time managing care of this patient today ____ minutes.
--- NOTE | 2022-10-21 12:46 | W.PM.OPN ---
Operative Note Operative Note Date of Service: 10/21/22 Narrative: Procedure: Colonoscopy Indication: Anemia Endoscopist: Claudia Benites MD Anesthesia Provider: Leatha Hernandez MD Anesthesia type: MAC Instrument: Olympus [id number]-H190L Consent: Indication, risks vs benefits, and alternatives were discussed with the patient who gave written informed consent to proceed. An product marketing manager was utilized to assist with the consent. EKG, pulse, pulse oximetry and blood pressure were monitored throughout the procedure. Please see anesthesia flowsheet. Procedure: The patient was brought to the procedure room and placed in the left lateral decubitus position. IV medications were administered by the anesthesia provider in attendance. A digital rectal exam was performed which was normal. A distal attachment cap was affixed to the tip of the colonoscope which was then inserted through the anus and advanced through the colon to the cecum at 85 cm,and terminal ileum. Mucosa was carefully examined under high definition white light as the instrument was slowly withdrawn in a retrograde panoramic fashion. Retroflexion was performed in rectum. The procedure was not difficult. There were no immediate obvious complications. The quality of the prep was BBPS: 1+2+2 = inadequate in R colon Withdrawal time 16 minutes. Limitations: Poor prep. Findings: Mucosa: Semi solid and liquid stool was noticed throughout the colon which was flushed and suctioned extensively. Protruding lesions: 1 sessile polyp of size 3 mm in cecum. Cold snare polypectomy was performed. The polyp was completely removed and retrieved. 1 sessile polyp of size 5 mm in transverse colon. Cold snare polypectomy was performed. The polyp was completely removed and retrieved. Medium internal hemorrhoids without stigmata of recent bleeding. Impression: 1. Poor prep 2.Total of 2 polyps removed from cecum and transverse colon. 3. Internal hemorrhoids Recommendations: - Follow path results. - Repeat colonoscopy in 1 year due to poor prep.
--- NOTE | 2022-10-21 12:56 | PC.NURSE ---
dr. melgoza aware of pulse. okay to proceed.
[2022-10-21 13:49] VITALS: BP 88/38; PULSE 104; RESP 16; TEMP 36.1; O2SAT 95
[2022-10-21 14:04] VITALS: BP 127/78; PULSE 97; RESP 18; TEMP 36.9; O2SAT 96
== END 2022-10-21 14:29 | disposition home or self-care (01) ==
PROVIDERS: PCP Internal Medicine; Visit Provider Internal Medicine Gastroenterology
PROC: 0DJD8ZZ Inspection of Lower Intestinal Tract, Via Natural or Artificial Opening Endoscopic (ICD-10-PCS; CPT 45378; principal; 2022-10-21 13:00)
DX: D64.9 Anemia, unspecified (principal); D12.3 Benign neoplasm of transverse colon; K63.5 Polyp of colon; K64.8 Other hemorrhoids; K59.04 Chronic idiopathic constipation; K29.70 Gastritis, unspecified, without bleeding; I20.8 Other forms of angina pectoris; J45.909 Unspecified asthma, uncomplicated; C69.92 Malignant neoplasm of unspecified site of left eye; H54.61 Unqualified visual loss, right eye, normal vision left eye; E11.22 Type 2 diabetes mellitus with diabetic chronic kidney disease; I13.0 Hypertensive heart and chronic kidney disease with heart failure and stage 1 through stage 4 chronic kidney disease, or unspecified chronic kidney disease; N18.30 Chronic kidney disease, stage 3 unspecified; I50.9 Heart failure, unspecified; Z79.4 Long term (current) use of insulin; Z79.899 Other long term (current) drug therapy; Z98.890 Other specified postprocedural states; Z88.0 Allergy status to penicillin; Z88.8 Allergy status to other drugs, medicaments and biological substances
CPT/HCPCS: 45385; 82947; 88305

== ENCOUNTER → 2022-10-21 10:51 | Outpatient (BNV) | payer MEDICAID, SELFPAY | PROVIDERS: PCP Internal Medicine; Visit Provider Internal Medicine | DX: D64.9 Anemia, unspecified (principal); D12.0 Benign neoplasm of cecum; D12.3 Benign neoplasm of transverse colon; K64.8 Other hemorrhoids | CPT/HCPCS: 45385 ==

== ENCOUNTER 2022-11-02 09:15 | Outpatient (REF) | payer MEDICAID, SELFPAY ==
--- NOTE | ~2022-11-02 | XR_ITS ---
EXAMINATION: XR FOOT, RIGHT CLINICAL INFORMATION: Injury 4 days ago. COMPARISON: None available. TECHNIQUE: AP, lateral, and oblique views of the right foot. FINDINGS: No acute fractures or subluxation. Moderate multifocal degenerative osteoarthritis. Bony spurring along the dorsal surface of the foot and calcaneus on the lateral view. Nonspecific significant diffuse soft tissue swelling. Scattered vascular calcifications. XR/XR foot RT min 3V IMPRESSION: 1. No acute fractures or subluxation. 2. To moderate multifocal degenerative osteoarthritis. 3. Nonspecific significant soft tissue swelling.
[2022-11-02 11:39] LABS: MANUAL DIFF FLAG NO
[2022-11-02 12:14] LABS: Basophils Percent Auto 0.4 % (0-2); Eosinophils Absolute Auto 0.3 X10*3/uL (0.0-0.4); Eosinophils Percent Auto 2.7 % (0-4); Hematocrit 38.2 % (42.0-52.0); Hemoglobin 12.2 g/dl (14.0-18.0); Imm Gran Abs Auto 0.04 X10*3/uL (0.00-0.03); Imm Gran Pct Auto 0.4 % (0.0-0.4); Lymphocytes Absolute Auto 2.6 X10*3/uL (1.2-4.9); Lymphocytes Percent Auto 24.4 % (20-40); Mean Corpuscular HGB Conc 31.9 g/dl (31.0-36.0); Mean Corpuscular Hemoglobin 28.4 pg (27.0-33.0); Mean Platelet Volume 11.1 fL (9.4-12.4); Monocytes Absolute Auto 0.8 X10*3/uL (0.1-1.2); Monocytes Percent Auto 7.8 % (2-11); Neutrophils Absolute Auto 6.8 x10*3/uL (2.0-8.3); Neutrophils Percent Auto 64.3 % (45-73); Platelet Count 314 X10*3/uL (160-400); Red Blood Count 4.29 X10*6/uL (4.60-5.80); Red Cell Distribution Width 13.3 % (11.0-16.0); White Blood Count 10.6 X10*3/uL (4.8-10.8)
[2022-11-02 12:31] LABS: Alanine Aminotransferase 13 U/L (0-40); Albumin Level 4.4 g/dL (3.5-5.0); Alkaline Phosphatase 79 U/L (39-117); Anion Gap 18 (12-20); Aspartate Amino Transferase 16 U/L (5-37); Bilirubin Total 0.3 mg/dL (0.0-1.0); Blood Urea Nitrogen 21 mg/dL (9-16); Calcium 9.5 mg/dL (8.4-10.2); Carbon Dioxide 22 mmol/L (22-29); Chloride 106 mmol/L (96-108); Estimated Glomerular Filt Rate 44; Glucose Random 139 mg/dL (60-115); Iron 45 mcg/dL (45-160); Percent Iron Saturation 17 % (15-50); Sodium 142 mmol/L (135-145); Total Iron Binding Capacity 258 mcg/dL (228-428); Total Protein 8.3 g/dL (6.5-8.0); Unsaturated Iron Binding 213 ug/dL
[2022-11-02 13:27] LABS: Folate 11.7 ng/mL (> or = 4.0); Vitamin B12 507 pg/mL (200-900)
== END 2022-11-02 09:16 | disposition home or self-care (01) ==
LOC: HO.HHCL 09:15
PROVIDERS: Visit Provider Internal Medicine
DX: E11.22 Type 2 diabetes mellitus with diabetic chronic kidney disease (principal); N18.32 Chronic kidney disease, stage 3b; Z79.4 Long term (current) use of insulin
CPT/HCPCS: 36415; 73630; 80053; 82607; 82746; 83540; 85025

== ENCOUNTER 2022-11-02 14:01 | Outpatient (REF) | payer MEDICAID, SELFPAY ==
--- NOTE | ~2022-11-02 | US_ITS ---
EXAMINATION: US VENOUS ULTRASOUND WITH DOPPLER LOWER EXTREMITY, RIGHT CLINICAL INFORMATION: Right leg edema COMPARISON: Venous ultrasound of the right lower extremity 04/17/2020 (negative) TECHNIQUE: Ultrasound of the deep veins is performed from the hip to the calf with compression sonography and color and pulse Doppler assessment. Spectral analysis with color-flow imaging is performed. FINDINGS: There is normal venous compression and respiratory variation and augmented flow. The visualized common femoral vein, superficial femoral vein, profunda femoral vein, popliteal vein, and the trifurcation region shows no evidence of deep venous thrombosis. There is no significant popliteal fossa cyst. The patient was unable to tolerate compression at the distal femoral vein, however, normal color flow was seen through the distal femoral vein. US/US venous duplex LE RT IMPRESSION: No DVT demonstrated in the right lower extremity.
== END 2022-11-02 14:02 | disposition home or self-care (01) ==
LOC: HO.US 14:01
PROVIDERS: Visit Provider Internal Medicine
DX: R60.0 Localized edema (principal); S99.921A Unspecified injury of right foot, initial encounter
CPT/HCPCS: 93971

== ENCOUNTER 2022-11-14 12:06 | Emergency (ER) | payer MEDICAID, SELFPAY ==
[2022-11-14 12:38] VITALS: BP 149/97; PULSE 117; RESP 18; TEMP 36.9; O2SAT 97; BMI 36.0
--- NOTE | 2022-11-14 12:39 | ED.LOWEXIN ---
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 Patient reports 1 week ago he dropped a bottle conditioner on his foot. He initially had some pain within that seemed to improve and then several days ago pain has increased again. Patient reported outpatient ultrasound and x-rays but does not know the results. He is taking Tylenol home with continued pain. He is complaining of foot pain, foot redness, foot swelling. He denies any fevers or chills, numbness or tingling. He is a diabetic and tells me his blood sugars have been normal And controlled with insulin Related Data Home Medications Medication Instructions Recorded Confirmed albuterol sulfate 2.5 mg/3 mL 2.5 mg inhalation QID 12/14/19 12/25/21 (0.083 %) solution for nebulization duloxetine 60 mg capsule,delayed 60 mg PO DAILY 12/14/19 12/25/21 release furosemide 20 mg tablet 20 mg PO DAILY 12/14/19 12/25/21 gabapentin 100 mg capsule 100 mg PO TID 12/14/19 12/25/21 lancets 33 gauge (TRUEplus Lancets) #100 ea 12/14/19 12/25/21 quetiapine 300 mg tablet,extended 300 mg PO DAILY@1700 12/14/19 12/25/21 release 24 hr rivaroxaban 2.5 mg tablet (Xarelto) 2.5 mg PO BID 12/14/19 12/25/21 topiramate 50 mg tablet 50 mg PO BEDTIME 12/14/19 12/25/21 acetaminophen 500 mg tablet 500 mg PO Q6H PRN Pain 03/22/20 12/25/21 (Tylenol Extra Strength) albuterol sulfate 90 mcg/actuation 2 puff inhalation Q4-6H PRN 01/06/21 12/25/21 aerosol inhaler Wheezing fluticasone propionate 110 1 puff PO BID 01/06/21 12/25/21 mcg/actuation HFA aerosol inhaler (Flovent HFA) fluticasone propionate 50 1 spray intranasal DAILY 01/06/21 12/25/21 mcg/actuation nasal spray,suspension trazodone 150 mg tablet 150 mg PO BEDTIME PRN Insomnia 01/06/21 12/25/21 lisinopril 40 mg tablet 40 mg PO QAM 12/25/21 12/25/21 loratadine 10 mg tablet (Allergy 10 mg PO DAILY 12/25/21 12/25/21 Relief (loratadine)) alcohol swabs (Alcohol Prep Pads) 0 pad topical QID 01/06/22 atorvastatin 80 mg tablet 80 mg PO BEDTIME 01/06/22 blood sugar diagnostic (FreeStyle #10 ea 01/06/22 Lite Strips) carvedilol 25 mg tablet 25 mg PO 01/06/22 chlorthalidone 25 mg tablet 25 mg PO QAM 01/06/22 ferrous sulfate 325 mg (65 mg 325 mg PO QPM 01/06/22 iron) tablet (FeroSul) naloxone 4 mg/actuation nasal 0 spray intranasal 01/06/22 spray (Narcan) oxycodone 5 mg tablet 5 mg PO BEDTIME 01/06/22 pen needle, diabetic 32 gauge x #50 ea 01/06/22 (Pentips) prazosin 2 mg capsule 2 mg PO 01/06/22 Previous Rx's Medication Instructions Recorded simethicone 180 mg capsule 180 mg PO QID 30 days #120 caps 01/25/20 Wheelchair #1 ea 07/18/20 blood-glucose meter (FreeStyle #1 ea 04/29/21 Lite Meter kit) meclizine 12.5 mg tablet 12.5 mg PO TID PRN dizziness #20 10/06/21 tabs dulaglutide 3 mg/0.5 mL 3 mg (0.5 mL) subcut QWEEK 28 days 11/04/21 subcutaneous pen injector #2 mL (Trulicity) peg 3350-electrolytes 236 240 ml PO Q10M 1 day #4,000 mL 01/06/22 gram-22.74 gram-6.74 gram-5.86 gram solution (Golytely) insulin glargine 100 unit/mL (3 10 unit (0.1 mL) subcut QAM 30 01/08/22 mL) subcutaneous pen (Lantus days #3 mL Solostar U-100 Insulin) calcium carbonate 300 mg (750 mg) 1 tab PO BID #60 tabs 07/30/22 chewable tablet (Antacid Extra Strength (calcium carb)) pantoprazole 40 mg tablet,delayed 40 mg PO BID 30 days #60 tabs 09/18/22 release (Protonix) plecanatide 3 mg tablet (Trulance) 3 mg PO DAILY #30 tabs 10/13/22 doxycycline monohydrate 100 mg 100 mg PO BID #14 caps 11/14/22 capsule oxycodone 5 mg tablet 5 mg PO Q8H PRN pain #6 tabs 11/14/22 Allergies Allergy/AdvReac Type Severity Reaction Status Date / Time shellfish derived Allergy Severe SWOLLEN Verified 11/14/22 12:38 THROAT apple [Apple] Allergy Intermediate SWELLING Verified 11/14/22 12:38 egg [Egg] Allergy Intermediate HIVES Verified 11/14/22 12:38 influenza virus vaccine, Allergy Intermediate SWELLING Verified 11/14/22 12:38 specific [Influenza Virus Vacc,Specific] Penicillins Allergy Mild RASH Verified 11/14/22 12:38 lisinopril [Lisinopril] Allergy Unknown UNKNOWN Verified 11/14/22 12:38 nifedipine [From Procardia] Allergy Unknown UNKNOWN Verified 11/14/22 12:38 Review of Systems Review of Systems: Yes all other systems are reviewed and are negative Constitutional: Constitutional: Reports no additional constitutional complaints, Denies body ache(s), Denies chills, Denies fever(s), Denies headache(s) and Denies weakness Eyes: Eyes: Reports no additional eye complaints and Denies change in vision ENT: Reports system reviewed and no additional complaints, except as documented, Denies dizziness, Denies headache(s), Denies nasal congestion, Denies nasal discharge and Denies neck pain Cardiovascular: Cardiovascular: Reports no additional cardiovascular complaints, Denies chest pain, Denies leg edema and Denies dyspnea Respiratory: Respiratory: Reports no additional respiratory complaints, Denies cough and Denies dyspnea Gastrointestinal: Gastrointestinal: Reports no additional gastrointestinal complaints, Denies abdominal pain, Denies diarrhea, Denies nausea and Denies vomiting Genitourinary: Genitourinary: Denies urinary incontinence Musculoskeletal: Musculoskeletal: Reports no additional musculoskeletal complaints, Denies back pain, Reports arthralgias, Denies joint swelling, Denies neck pain, Denies numbness and Denies tingling Integumentary/Breasts: Skin/Breast: Reports system reviewed and no additional complaints, except as docu, Reports swelling, Reports erythema and Denies rash Neurologic: Reports system reviewed and no additional complaints, except as documented, Denies dizziness, Denies headache(s), Denies numbness, Denies tingling and Denies weakness [facility] Past Medical History Attestation statement: The following information was validated with the patient. Source: old records reviewed and nursing notes reviewed Medical History Pulmonary embolism Dysphagia Uninodular goiter (nontoxic) Chronic pain Type 2 diabetes mellitus with polyneuropathy H. 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 CHF (congestive heart failure) History of poliomyelitis GERD (gastroesophageal reflux disease) Morbid obesity Mood disorder Nasal polyps Positive PPD Angina of effort ARTEM (obstructive sleep apnea) Hemiplegia affecting dominant side Asthma Other pulmonary embolism and infarction Left ventricular hypertrophy Syncope Type 2 diabetes mellitus with hyperglycemia, with long-term current use of insulin Hyperlipidemia LDL goal <70 Essential hypertension Surgical History History of carpal tunnel surgery History of right knee joint replacement History of esophagogastroduodenoscopy (EGD) History of cardiac catheterization Hx of knee surgery History of coronary artery stent placement Family History Family History Father Stroke Brain cancer CVD (cardiovascular disease) Diabetes Mother Diabetes Social History Social History Household Members: Significant Other Housing: Apartment Alcohol intake: never Patient Tobacco Use Status: Never used Tobacco Advance Directives: Yes Advance Directives on File: Yes Advance Directives Date on File: 11/08/20 service: No Physical Exam Vital Signs: Vital Signs: Last Vital Signs Temp 98.5 F 11/14/22 12:38 Pulse 117 H 11/14/22 12:38 Resp 18 11/14/22 12:38 BP 149/97 H 10/07/23 12:38 Pulse Ox 97 11/14/22 12:38 O2 Del Method Room Air 11/14/22 12:38 BMI result Body Mass Index 36.0 Const: General: cooperative, healthy appearing, comfortable and no acute distress Orientation/consciousness: patient oriented x3 Limitations: wheelchair ( baseline) HEENT: Head: Yes normal to inspection Ears: hearing grossly normal bilaterally General nose exam: Normal external nose present Face and sinus: Yes normal facial exam Mouth: Normal oral and palatal mucosa present Throat: Yes posterior oropharynx normal Eyes: General: appearance normal, both eyes and all related structures Pupils: Equal, round and reactive pupils present Neck: Neck: Yes normal visual inspection Chest: Chest palpation & inspection: normal inspection of the chest Resp: Effort & Inspection: normal respiratory effort Auscultation: clear to auscultation bilaterally Cardio: Rate: regular rate Rhythm: regular rhythm Peripheral pulses: Peripheral pulses 2+ throughout GI: Inspection: Yes normal to inspection Palpation (GI): Soft to palpation and nontender Auscultation: normal bowel sounds Back/Spine/Pelvis: Thoracic/Lumbar Spine: thoracic and lumbar spine normal to inspection Skin: General skin exam: no rashes or lesions noted Neuro: General: patient oriented x3 Cranial nerves: Yes Equal, round and reactive pupils present Cognition (Neuro): normal cognition Extrem: Other: to the dorsal right foot there is erythema, warmth, swelling. It is not circumferential. There is full active and passive range of motion of the foot and ankle. There are normal DP and PT pulses. Normal sensation. Course Course Course Narrative: RME - 57 yo Kinyarwanda speaking male with history of diabetes, hx PE on anticoagulation, GERD, constipation, HTN, presents to the ER for evaluation of ongoing 10/10 right foot pain and swelling after a bottle fell on it 11/02. He had an x-ray and an ultrasound done on 11/02 that were unremarkable. No improvement w/ tylenol. Right foot is slightly warm and red, very tender to palpable. ?cellulitis. Plan: basic labs, treat pain Medical Decision Making Medical Decision Making MDM Narrative: 57 years old with history of asthma, CHF, CKD stage 3 history of CVA with left-sided residual weakness, hypertension, mood disorder, type 2 diabetes here with complaints of right foot pain for 1 week. Patient reports 1 week ago he dropped a bottle conditioner on his foot. He initially had some pain within that seemed to improve and then several days ago pain has increased again. Patient reported outpatient ultrasound and x-rays but does not know the results. He is taking Tylenol home with continued pain. He is complaining of foot pain, foot redness, foot swelling. He denies any fevers or chills, numbness or tingling. He is a diabetic and tells me his blood sugars have been normal And controlled with insulin to the dorsal right foot there is erythema, warmth, swelling. It is not circumferential. There is full active and passive range of motion of the foot and ankle. There are normal DP and PT pulses. Normal sensation. Will review labs from triage, outpatient ultrasound and x-ray Differential Diagnosis Differential Diagnoses: The differential diagnosis associated with the presentation includes fracture, contusion, cellulitis low concern for septic arthritis Admission/Observation Consideration of admission/observation: Escalation of care including admission/observation considered there appears to be cellulitis but it is not circumferential, patient nontoxic, afebrile and has not been on oral antibiotics I believe that we can trial him on oral antibiotics. he does not need admission or IV antibiotics Lab Data MDM Lab Attestation statement: I reviewed the patient's lab results. ckd at baseline, otherwise unremarkable 11/14/22 12:54 11/14/22 12:54 Labs: Lab Results 11/14/22 Range/Units 12:54 WBC 9.7 (4.8-10.8) X10*3/uL RBC 4.04 L (4.60-5.80) X10*6/uL Hgb 11.5 L (14.0-18.0) g/dl Hct 34.8 L (42.0-52.0) % MCV 86.1 (80.0-98.0) fL MCH 28.5 (27.0-33.0) pg MCHC 33.0 (31.0-36.0) g/dl RDW 13.4 (11.0-16.0) % Plt Count 274 (160-400) X10*3/uL MPV 10.0 (9.4-12.4) fL Immature Gran % (Auto) 0.4 (0.0-0.4) % Neut % (Auto) 72.8 (45-73) % Lymph % (Auto) 18.2 L (20-40) % [place] % (Auto) 6.6 (2-11) % Eos % (Auto) 1.7 (0-4) % Baso % (Auto) 0.3 (0-2) % Lymph # (Auto) 1.8 (1.2-4.9) X10*3/uL [place] # (Auto) 0.6 (0.1-1.2) X10*3/uL Eos # (Auto) 0.2 (0.0-0.4) X10*3/uL Baso # (Auto) 0.0 (0.0-0.2) X10*3/uL Abs Immat Gran (auto) 0.04 H (0.00-0.03) X10*3/uL Absolute Neuts (auto) 7.1 (2.0-8.3) x10*3/uL Absolute Nucleated RBC 0.000 (0.0-0.012) X10*3/uL Nucleated RBC % (auto) 0.0 (0.0-0.2) /100WBC Sodium 140 (135-145) mmol/L Potassium 3.9 (3.3-5.1) mmol/L Chloride 105 (96-108) mmol/L Carbon Dioxide 21 L (22-29) mmol/L Anion Gap 18 (12-20) BUN 25 H (9-16) mg/dL Creatinine 1.76 H (0.5-1.4) mg/dL Estim Creat Clear Calc 47.0 Estimated GFR 40 Random Glucose 207 H (60-115) mg/dL Calcium 9.3 (8.4-10.2) mg/dL Magnesium 1.6 (1.6-2.6) mg/dL Total Bilirubin 0.4 (0.0-1.0) mg/dL Direct Bilirubin 0.1 (0.0-0.5) mg/dL AST 14 (5-37) U/L ALT 11 (0-40) U/L Alkaline Phosphatase 74 (39-117) U/L Total Protein 7.8 (6.5-8.0) g/dL Albumin 4.2 (3.5-5.0) g/dL Independent Historian Clinical information obtained from an independent historian. History obtained from or confirmed by: Spouse External Record Review External record reviewed: Prior outpatient radiology Prescription Management I considered prescription management with: Pain Medication and Antibiotic Chronic Conditions Patient?s care impacted by: Diabetes and Hypertension Discharge Plan Discharge Clinical Impression: Cellulitis Patient Disposition: Home, Self-Care Instructions: Cellulitis (ED) Additional Instructions: elevate the foot, apply ice Take the antibiotics as prescribed Take the pain medicine only if needed. Try Tylenol 1st. Your outpatient ultrasound shows no blood clot. Your outpatient x-ray shows no broken bones. Please return for any increasing redness, increasing swelling, increasing pain, fever elevar el pie, aplicar hielo [place] los antibi?ticos seg?n lo recetado. [place] el analg?sico s?lo si es necesario. Pruebe Tylenol alejandra. Devi ultrasonido ambulatorio no muestra jocelyne?n co?gulo de melissa. Devi radiograf?a ambulatoria no muestra huesos rotos. Por favor regrese si aumenta el enrojecimiento, la hinchaz?n, el dolor o la fiebre. Prescriptions: New doxycycline monohydrate 100 mg capsule 100 mg PO BID Qty: 14 0RF oxycodone 5 mg tablet 5 mg PO Q8H PRN (Reason: pain) Qty: 6 0RF Rx Instructions: Partial Fill upon patient request. No Action (DME) Wheelchair See Rx Instructions .Route .MEDSUPPLY Qty: 1 0RF Rx Instructions: As directed Trulicity 3 mg/0.5 mL pen injector 3 mg subcut QWEEK 28 Days Qty: 2 3RF Lantus Solostar U-100 Insulin 100 unit/mL (3 mL) insulin pen 10 unit subcut QAM 30 Days Qty: 3 0RF Rx Instructions: FUTURE REFILLS FROM PCP. calcium carbonate [Antacid Ext Str (calcium carb)] 300 mg (750 mg) tablet,chewable 1 tab PO BID Qty: 60 6RF pantoprazole [Protonix] 40 mg tablet,delayed release (DR/EC) 40 mg PO BID 30 Days Qty: 60 0RF Trulance 3 mg tablet 3 mg PO DAILY Qty: 30 6RF trazodone 150 mg tablet 150 mg PO BEDTIME PRN (Reason: Insomnia) Rx Instructions: May take an addition 150 mg dose if needed fluticasone propionate 50 mcg/actuation spray,suspension 1 spray intranasal DAILY Flovent HFA 110 mcg/actuation HFA aerosol inhaler 1 puff PO BID albuterol sulfate 90 mcg/actuation Hfa Aerosol Inhaler 2 puff INHALATION Q4-6H PRN (Reason: Wheezing) meclizine 12.5 mg tablet 12.5 mg PO TID PRN (Reason: dizziness) Qty: 20 0RF topiramate 50 mg tablet 50 mg PO BEDTIME quetiapine 300 mg tablet extended release 24 hr 300 mg PO DAILY@1700 Rx Instructions: take on an empty stomach duloxetine 60 mg capsule,delayed release(DR/EC) 60 mg PO DAILY Xarelto 2.5 mg tablet 2.5 mg PO BID (DME) lancets [TRUEplus Lancets] 33 gauge misc See Rx Instructions .ROUTE .MEDSUPPLY Qty: 100 Rx Instructions: As directed furosemide 20 mg tablet 20 mg PO DAILY gabapentin 100 mg capsule 100 mg PO TID albuterol sulfate 2.5 mg /3 mL (0.083 %) solution for nebulization 2.5 mg inhalation QID acetaminophen [Tylenol Extra Strength] 500 mg tablet 500 mg PO Q6H PRN (Reason: Pain) simethicone 180 mg capsule 180 mg PO QID 30 Days Qty: 120 3RF Rx Instructions: after meals (DME) blood-glucose meter [FreeStyle Lite Meter] Kit See Rx Instructions .ROUTE .MEDSUPPLY Qty: 1 0RF Rx Instructions: As directed 3x/day lisinopril 40 mg tablet 40 mg PO QAM loratadine [Allergy Relief (loratadine)] 10 mg tablet 10 mg PO DAILY alcohol swabs [Alcohol Prep Pads] Pads, Medicated 0 pad topical QID (DME) pen needle, diabetic [Pentips] 32 gauge x needle See Rx Instructions .ROUTE QID Qty: 50 Rx Instructions: As directed ferrous sulfate [FeroSul] 325 mg (65 mg iron) tablet 325 mg PO QPM (DME) FreeStyle Lite Strips Strip See Rx Instructions .ROUTE QID Qty: 10 Rx Instructions: As directed chlorthalidone 25 mg tablet 25 mg PO QAM carvedilol 25 mg tablet 25 mg PO atorvastatin 80 mg tablet 80 mg PO BEDTIME oxycodone 5 mg tablet 5 mg PO BEDTIME prazosin 2 mg capsule 2 mg PO naloxone [Narcan] 4 mg/actuation spray,non-aerosol 0 spray intranasal peg 3350-electrolytes [Golytely] 236-22.74-6.74 -5.86 gram recon soln 240 ml PO Q10M 1 Days Qty: 4000 0RF Rx Instructions: until fecal effluent is clear; do not exceed a total volume of 2,000 mL Referrals: Physician,Unknown J [Primary Care Provider] - 10 days Interventions: ED Discharge Assessment Last Done: 11/14/22 14:10 Discharge Date/Time: 11/14/22 14:11 Print Language: Kinyarwanda
[2022-11-14 13:14] LABS: Alanine Aminotransferase 11 U/L (0-40); Albumin Level 4.2 g/dL (3.5-5.0); Alkaline Phosphatase 74 U/L (39-117); Anion Gap 18 (12-20); Aspartate Amino Transferase 14 U/L (5-37); Bilirubin Direct 0.1 mg/dL (0.0-0.5); Bilirubin Total 0.4 mg/dL (0.0-1.0); Blood Urea Nitrogen 25 mg/dL (9-16); Calcium 9.3 mg/dL (8.4-10.2); Carbon Dioxide 21 mmol/L (22-29); Chloride 105 mmol/L (96-108); Estimated Glomerular Filt Rate 40; Glucose Random 207 mg/dL (60-115); Magnesium 1.6 mg/dL (1.6-2.6); Potassium 3.9 mmol/L (3.3-5.1); Sodium 140 mmol/L (135-145); Total Protein 7.8 g/dL (6.5-8.0)
== END 2022-11-14 14:11 | disposition home or self-care (01) ==
PROVIDERS: Physician Assistant; Emergency Provider Emergency Medicine Emergency Medical Services
DX: L03.116 Cellulitis of left lower limb (principal); M79.662 Pain in left lower leg; E11.9 Type 2 diabetes mellitus without complications; I10 Essential (primary) hypertension; E78.5 Hyperlipidemia, unspecified; Z79.4 Long term (current) use of insulin; Z79.899 Other long term (current) drug therapy
CPT/HCPCS: 36415; 80048; 80076; 83735; 85025; 99282; 99283

== ENCOUNTER 2022-11-25 13:20 | Outpatient (AMB) | payer MEDICAID, SELFPAY ==
[2022-11-25 13:26] VITALS: BP 132/72; PULSE 101; BMI 40.5
--- NOTE | 2022-11-25 13:26 | MHC.OFFVIS ---
Intake Vital Signs 11/25/22 13:26 Height 5 ft 4 in Weight 235 lb 14.314 oz BMI 40.5 Intake Visit Reasons: S/P COLO: Dr. Drake Allergies shellfish derived Allergy (Severe, Verified 11/14/22 12:38) SWOLLEN THROAT apple [Apple] Allergy (Intermediate, Verified 11/14/22 12:38) SWELLING egg [Egg] Allergy (Intermediate, Verified 11/14/22 12:38) HIVES influenza virus vaccine, specific [Influenza Virus Vacc,Specific] Allergy (Intermediate, Verified 11/14/22 12:38) SWELLING Penicillins Allergy (Mild, Verified 11/14/22 12:38) RASH lisinopril [Lisinopril] Allergy (Unknown, Verified 11/14/22 12:38) UNKNOWN nifedipine [From Procardia] Allergy (Unknown, Verified 11/14/22 12:38) UNKNOWN [facility] Medical History Pulmonary embolism Dysphagia Uninodular goiter (nontoxic) Chronic pain Type 2 diabetes mellitus with polyneuropathy H. 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 CHF (congestive heart failure) History of poliomyelitis GERD (gastroesophageal reflux disease) Morbid obesity Mood disorder Nasal polyps Positive PPD Angina of effort ARTEM (obstructive sleep apnea) Hemiplegia affecting dominant side Asthma Other pulmonary embolism and infarction Left ventricular hypertrophy Syncope Type 2 diabetes mellitus with hyperglycemia, with long-term current use of insulin Hyperlipidemia LDL goal <70 Essential hypertension Surgical History History of carpal tunnel surgery History of right knee joint replacement History of esophagogastroduodenoscopy (EGD) History of cardiac catheterization Hx of knee surgery History of coronary artery stent placement Family History Father Stroke Brain cancer CVD (cardiovascular disease) Diabetes Mother Diabetes Social History Household Members: Significant Other Housing: Apartment Alcohol intake: never Patient Tobacco Use Status: Never used Tobacco Advance Directives Date on File: 11/08/20 service: No Coding
--- NOTE | 2022-11-25 13:30 | A.OFFVIS_ITS ---
Intake Vital Signs 11/25/22 13:26 11/25/22 13:39 Height 5 ft 4 in Weight 235 lb 14.314 oz BMI 40.5 40.5 BP 132/72 Blood Pressure Location Lt brachial Position Sitting Pulse 101 H Intake Visit Reasons: S/P COLO: Dr. Drake Intake Note: Patient presents to in office visit today in follow up of colonoscopy. CC: The patient underwent colonoscopy on 10/21/[address] Benites. He reports occasional constipation. Denies other GI symptoms today. 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 He has been certain that he had a colonoscopy in the past, but after discussion he was confused about the EGD he had in 2019. He is then overdue for CRC screening. He is w/c bound, but he feels he could prep as he walks with crutches at home. There are no prior problems with anesthesia or sedation. He is on Xarelto for chronic DVT/PE and has chronic CHF and denies any current respiratory problems. There are no infectious disease problems. No FHX of crc or polyps. I will see him after the colonoscopy. (2) Chronic idiopathic constipation: Code(s): K59.04 - Chronic idiopathic constipation (3) GERD (gastroesophageal reflux diseas e): Code(s): K21.9 - Gastro-esophageal reflux disease without esophagitis (4) Gastritis: Code(s): K29.70 - Gastritis, unspecified, without bleeding (5) Chronic anticoagulation: Comment: on xarelto for DVT/PE Code(s): Z79.01 - intermediate manager (current) use of anticoagulants (6) CHF (congestive heart failure): Code(s): I50.9 - Heart failure, unspecified (7) ARTEM (obstructive sleep apnea): Code(s): G47.33 - Obstructive sleep apnea (adult) (pediatric) Medications: New peg 3350-electroly kalia 236-22.74-6.74 -5.86 gram (Golyt terrell) until feca l effluent is jorge luis r; do not exceed a total volume of 2 ,000 mL 240 mL PO Q10M 1 day 4,000 mL 0RF Z12.11 - Encounter for screening for malignant neoplas m of colon Refilled pantoprazole (Prot esther) 40 mg PO BID 30 d ays 60 tabs 6RF K21.9 - Gastro-eso phageal reflux dis ease without esoph agitis, K29.70 - G astritis, unspecif ied, without bleed ing plecanatide (Trula nce) 3 mg PO DAILY 30 tabs 6RF K59.04 - Chronic i diopathic constipa tion COLONOSCOPY 10/21/22 Findings: Mucosa: Semi solid and liquid stool was noticed throughout the colon which was flushed and suctioned extensively. Protruding lesions: * 1 sessile polyp of size 3 mm in cecum. Cold snare polypectomy was performed. The polyp was completely removed and retrieved. * 1 sessile polyp of size 5 mm in transverse colon. Cold snare polypectomy was performed. The polyp was completely removed and retrieved. * Medium internal hemorrhoids without stigmata of recent bleeding. Impression: 1. Poor prep 2.Total of 2 polyps removed from cecum a nd transverse colon. 3. Internal hemorrhoids Recommendations: - Follow path results. - Repeat colonoscopy in 1 year due to po or prep. Received: 10/21/22 Diagnosis A. Colon, cecal polyp: Colonic mucosa with no specific change; no adenomatous dysplasia seen. B. Colon, transverse, polyp: Tubular adenoma, completely excised; negative for high-grade dysplasia and carcinoma TODAY'S VISIT WALLISIAN #Judith Hanson He is here today with a female friend who is supportive. The procedure needs repeated in 1 year due to poor prep. He says that the Miralax prep he received was and he thinks this is why it didn't work to clear him. We will do Go lytely with dulcolax next time. He says he still is no moving his bowels well despite taking it every day correctly. We will progress to Linzess ant titrate. Obviously this is a contributing factor to his failure to clear. The procedure was well tolerated. The results were explained and the patient is agreeable to the follow-up interval as stated. Education was provided to tell any 1st degree relatives about their findings to be sure that they are screened by age 45. Educated that they will be put on a recall list when it is time for their repeat scope but should they move out of state or away from the hospital they will need to remember along with their primary to repeat the procedure in a timely fashion to avoid any adverse complications. He continues to do well with his pantoprazole bid. He is on his loftstrand crutches today, he says he had not been using them, but a shampoo bottle fell on his leg and caused him injury. ROV 2 weeks. [facility] Medical History Pulmonary embolism Dysphagia Uninodular goiter (nontoxic) Chronic pain Type 2 diabetes mellitus with polyneuropathy H. 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 CHF (congestive heart failure) History of poliomyelitis GERD (gastroesophageal reflux disease) Morbid obesity Mood disorder Nasal polyps Positive PPD Angina of effort ARTEM (obstructive sleep apnea) Hemiplegia affecting dominant side Asthma Other pulmonary embolism and infarction Left ventricular hypertrophy Syncope Type 2 diabetes mellitus with hyperglycemia, with long-term current use of insulin Hyperlipidemia LDL goal <70 Essential hypertension Surgical History History of carpal tunnel surgery History of right knee joint replacement History of esophagogastroduodenoscopy (EGD) History of cardiac catheterization Hx of knee surgery History of coronary artery stent placement Family History Father Stroke Brain cancer CVD (cardiovascular disease) Diabetes Mother Diabetes Social History Household Members: Significant Other Housing: Apartment Alcohol intake: never Patient Tobacco Use Status: Never used Tobacco Advance Directives Date on File: 11/08/20 service: No Review of Systems Const Denies fatigue, Denies fever(s), Denies night sweats, Denies poor appetite and Denies weight loss ENT Reports Normal hearing present, Denies dental pain, Denies dysphagia, Denies hearing loss, Denies mouth pain, Denies odynophagia, Denies throat swelling, Denies tongue swelling and Reports other (Dentition adequate) Card Reports no additional complaints Resp Reports no additional complaints GI Denies abdominal pain, Denies melena, Denies bloating, Denies hematochezia, Reports constipation, Denies GI cramping, Denies dysphagia, Denies excessive flatus, Denies early satiety, Reports heartburn, Denies diarrhea, Denies nausea, Denies odynophagia, Denies vomiting and Denies hematemesis Musc Reports abnormal gait, Reports back pain, Reports arthralgias and Reports stiffness Skin/Breast Denies pruritus, Denies lesions, Denies rash and Denies jaundice Neuro Reports Normal hearing present, Denies Abnormal speech present and Reports abnormal gait Endo Denies fatigue Aller/Immun Denies throat swelling and Denies tongue swelling Physical Exam Vital Signs: Last Vital Signs Pulse 101 H 11/25/22 13:26 BP 132/72 11/25/22 13:26 BMI result Body Mass Index 40.5 Const General: cooperative, no acute distress, well developed and well groomed Nutritional Appearance: well nourished and obese Orientation/consciousness: oriented to person, oriented to place and oriented to time Limitations: language barrier and ambulation with cane HEENT Head: Yes normocephalic and Yes atraumatic Eyes General: appearance normal, both eyes and all related structures Pupils: Equal, round and reactive pupils present Neck Neck: Yes normal visual inspection and Yes no lymphadenopathy Thyroid: Thyroid normal Resp Effort & Inspection: normal respiratory effort and able to speak in complete sentences Auscultation: clear to auscultation bilaterally Cardio Rate: regular rate Rhythm: regular rhythm Heart sounds: Normal, physiologic split S2 sound present Peripheral pulses: radial pulses present and posterior tibial pulses present GI Inspection: No distended, No Abdominal panniculus present and Yes obesity Palpation (GI): Soft to palpation, nontender, no guarding, not rigid and No hepatosplenomegaly present Percussion: Yes normal to percussion Auscultation: normal bowel sounds Rectal Exam - Male: Yes deferred Skin General skin exam: no rashes or lesions noted, turgor normal, skin not dry, no jaundice, No spider nevi and no striae Rashes: no rashes Nails: normal Neuro General: oriented to person, oriented to place and oriented to time Cranial nerves: Yes Equal, round and reactive pupils present and Yes Normal hearing present Speech: No Abnormal speech present Extrem Other: Using lost ran crutches, right knee brace, bilateral wrist braces worn today. General: No normal gait Psych Appearance: grossly normal and well kempt Mental Status: mental status grossly normal Speech and movement: Normal speech and movement present Affect: normal affect Attitude: cooperative Thought process: Normal thought process present and not confabulating Thought content: Normal thought content present Insight: Limited insight present (Psych) Judgement: Limited judgement present (Psych) Results Reviewed Results Reviewed: COLONOSCOPY 10/21/22 Findings: Mucosa: Semi solid and liquid stool was noticed throughout the colon which was flushed and suctioned extensively. Protruding lesions: * 1 sessile polyp of size 3 mm in cecum. Cold snare polypectomy was performed. The polyp was completely removed and retrieved. * 1 sessile polyp of size 5 mm in transverse colon. Cold snare polypectomy was performed. The polyp was completely removed and retrieved. * Medium internal hemorrhoids without stigmata of recent bleeding. Impression: 1. Poor prep 2.Total of 2 polyps removed from cecum and transverse colon. 3. Internal hemorrhoids Recommendations: - Follow path results. - Repeat colonoscopy in 1 year due to poor prep. Received: 10/21/22 Diagnosis A. Colon, cecal polyp: Colonic mucosa with no specific change; no adenomatous dysplasia seen. B. Colon, transverse, polyp: Tubular adenoma, completely excised; negative for high-grade dysplasia and carcinoma Assessment & Plan Assessment & Plan (1) Tubular adenoma of colon: Comment: 11/2022=TA but poor prep repeat in 1 year Code(s): D12.6 - Benign neoplasm of colon, unspecified Plan: WALLISIAN #Judith Live He is here today with a female friend who is supportive. The procedure needs repeated in 1 year due to poor prep. He says that the Miralax prep he received was and he thinks this is why it didn't work to clear him. We will do Go lytely with dulcolax next time. He says he still is no moving his bowels well despite taking it every day correctly. We will progress to Linzess ant titrate. Obviously this is a contributing factor to his failure to clear. The procedure was well tolerated. The results were explained and the patient is agreeable to the follow-up interval as stated. Education was provided to tell any 1st degree relatives about their findings to be sure that they are screened by age 45. Educated that they will be put on a recall list when it is time for their repeat scope but should they move out of state or away from the hospital they will need to remember along with their primary to repeat the procedure in a timely fashion to avoid any adverse complications. He continues to do well with his pantoprazole bid. He is on his loftstrand crutches today, he says he had not been using them, but a shampoo bottle fell on his leg and caused him injury. ROV 2 weeks. (2) Chronic idiopathic constipation: Code(s): K59.04 - Chronic idiopathic constipation (3) GERD (gastroesophageal reflux disease): Code(s): K21.9 - Gastro-esophageal reflux disease without esophagitis Medications: New linaclotide (Linzess) 145 mcg PO QAM 30 caps 3RF K21.9 - Gastro-esophageal re flux disease without esophagitis, K59.04 - Chronic idiopathic constipation On Hold plecanatide (Trulance) Hold Comment: not working 3 mg PO DAILY 30 tabs 6RF K59.04 - Chronic idiopathic constipation Coding Level of Care Code Est Pt Level 3 (98302) Diagnoses Tubular adenoma of colon D12.6 Chronic idiopathic constipation K59.04 GERD (gastroesophageal reflux disease) K21.9
[2022-11-25 13:39] VITALS: BMI 40.5
== END 2022-11-25 13:52 | disposition home or self-care (01) ==
PROVIDERS: PCP Internal Medicine; Visit Provider Nurse Practitioner
DX: D12.6 Benign neoplasm of colon, unspecified (principal); K59.04 Chronic idiopathic constipation; K21.9 Gastro-esophageal reflux disease without esophagitis
CPT/HCPCS: 99213

== ENCOUNTER → 2022-11-25 13:20 | Outpatient (BNVA) | payer MEDICAID, SELFPAY | PROVIDERS: PCP Internal Medicine; Visit Provider Nurse Practitioner | DX: K59.04 Chronic idiopathic constipation (principal); K21.9 Gastro-esophageal reflux disease without esophagitis; D12.6 Benign neoplasm of colon, unspecified | CPT/HCPCS: 99212 ==

== ENCOUNTER 2022-12-11 10:01 | Outpatient (REF) | payer MEDICAID, SELFPAY ==
--- NOTE | ~2022-12-11 | XR_ITS ---
EXAMINATION: XR FOOT, RIGHT CLINICAL INFORMATION: Right foot pain COMPARISON: Right foot x-rays on 11/02/2022 TECHNIQUE: AP, lateral, and oblique views of the right foot. FINDINGS: BONES: Bony structures are intact. Prominent dorsal and plantar calcaneal spurs are present. Small marginal bony spurs are again visualized along the dorsal border of right navicular and cuneiform bones. There is no focal bone destruction or periosteal reaction seen. JOINTS: Alignment of joints is normal. SOFT TISSUE: Soft tissue is normal. No radiopaque foreign body or abnormal air collection is seen. XR/XR foot RT min 3V IMPRESSION: 1. Unchanged prominent dorsal and plantar calcaneal spur is an intermetatarsal, metatarsophalangeal joint osteoarthritis. 2. No fracture or dislocation or signs of osteomyelitis are found. Follow-up MRI is recommended if symptoms persist. If MRI is not feasible, a CT scan could be considered.
--- NOTE | ~2022-12-11 | XR_ITS ---
EXAMINATION: XR ANKLE, RIGHT CLINICAL INFORMATION: Right ankle pain COMPARISON: None available. TECHNIQUE: AP, lateral, and mortise views of the right ankle. FINDINGS: BONES: Bony structures are intact. Prominent dorsal and plantar calcaneal spurs are present. Small marginal bony spurs are again visualized along the dorsal border of right navicular and cuneiform bones. There is no focal bone destruction or periosteal reaction seen. JOINTS: Alignment of joints is normal. SOFT TISSUE: Soft tissue is normal. No radiopaque foreign body or abnormal air collection is seen. XR/XR ankle RT 2V IMPRESSION: 1. Prominent dorsal and plantar calcaneal spurs and metatarsal, metatarsophalangeal joint osteoarthritis. 2. No fracture or dislocation or signs of osteomyelitis are found.
== END 2022-12-11 10:02 | disposition home or self-care (01) ==
LOC: HO.XRAY 10:01
PROVIDERS: Absent Provider Family Medicine; PCP Internal Medicine; Visit Provider Nurse Practitioner
DX: M25.571 Pain in right ankle and joints of right foot (principal); K59.04 Chronic idiopathic constipation; K21.9 Gastro-esophageal reflux disease without esophagitis; D12.6 Benign neoplasm of colon, unspecified
CPT/HCPCS: 73600; 73630; 99212

== ENCOUNTER 2022-12-11 10:01 | Outpatient (AMB) | payer MEDICAID, SELFPAY ==
--- NOTE | 2022-12-11 10:04 | MHC.OFFVIS ---
Intake Vital Signs 12/11/22 10:05 Height 5 ft 4 in Weight 236 lb 5.369 oz BMI 40.6 BP 138/83 Blood Pressure Location Lt brachial Position Sitting Pulse 112 H Comment Patient was weighted with metal brace and metal crutches Intake Visit Reasons: 2 week follow up [facility] Intake Note: Patient presents to in office visit today in follow up of [facility] CC: Patient was started on Linzess at his last visit and he reports he was having epigastric pain, increased gas, and heartburn and he d/c medication. He states he continues to have epigastric burning sensation. 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: Yes Accompanied by: WELCOME WAGON HOST/HOSTESS Allergies shellfish derived Allergy (Severe, Verified 12/11/22 10:11) SWOLLEN THROAT apple [Apple] Allergy (Intermediate, Verified 12/11/22 10:11) SWELLING egg [Egg] Allergy (Intermediate, Verified 12/11/22 10:11) HIVES influenza virus vaccine, specific [Influenza Virus Vacc,Specific] Allergy (Intermediate, Verified 12/11/22 10:11) SWELLING Penicillins Allergy (Mild, Verified 12/11/22 10:11) RASH lisinopril [Lisinopril] Allergy (Unknown, Verified 12/11/22 10:11) UNKNOWN nifedipine [From Procardia] Allergy (Unknown, Verified 12/11/22 10:11) UNKNOWN HPI 2 week follow up [facility] HPI Details Assessment & Plan (1) Tubular adenoma of colon: Comment: 11/2022=TA but poor prep repeat in 1 year Code(s): D12.6 - Benign neoplasm of colon, unspecified Plan: HUNGARIAN #Judith Live He is here today with a female friend who is supportive. The procedure needs repeated in 1 year due to poor prep. He says that the Miralax prep he received was and he thinks this is why it didn't work to clear him. We will do Go lytely with dulcolax next time. He says he still is no moving his bowels well despite taking it every day correctly. We will progress to Linzess ant titrate. Obviously this is a contributing factor to his failure to clear. The procedure was well tolerated. The results were explained and the patient is agreeable to the follow-up interval as stated. Education was provided to tell any 1st degree relatives about their findings to be sure that they are screened by age 45. Educated that they will be put on a recall list when it is time for their repeat scope but should they move out of state or away from the hospital they will need to remember along with their primary to repeat the procedure in a timely fashion to avoid any adverse complications. He continues to do well with his pantoprazole bid. He is on his loftstrand crutches today, he says he had not been using them, but a shampoo bottle fell on his leg and caused him injury. ROV 2 weeks. (2) Chronic idiopathic constipation: Code(s): K59.04 - Chronic idiopathic constipation (3) GERD (gastroesophageal reflux disease): Code(s): K21.9 - Gastro-esophageal reflux disease without esophagitis Medications: New linaclotide (Linze ss) 145 mcg PO QAM 30 caps 3RF K21.9 - Gastro-eso phageal reflux dis ease without esoph agitis, K59.04 - C hronic idiopathic constipation On Hold plecanatide (Trula nce) Hold Comme nt: not working 3 mg PO DAILY 30 tabs 6RF K59.04 - Chronic i diopathic constipa tion CORRESPONDENCE On 11/25/22 @ 15:20 Willow [place] Wrote To Uyen Meeks Per pharmacy this medication does not require a PA. On 11/25/22 @ 13:50 Uyen Meeks Wrote To Willow Dallas This pt has failed all OTC's adn Trlulance, please do a PA for LInzess 145mcg. TODAY'S VISIT HUNGARIAN #Sophy Live He is here with his who is supportive. He says that with the Linzess 145 it was only moving his bowels ?a little bit. ? also with this he was having greater burning in the epigastric area and heartburn. This despite continuing on pantoprazole 40 mg twice a day. I explained to him that this usually means that we are not at a high enough dose yet to keep things moving in the right direction, and when gas packs up carries the stomach acid with it. With this he is agreeable to trying the 290 micro g dose of the Linzess. I will also give him 20 mg famotidine for breakthrough to try to ease the discomfort until we can get better bowel motility established. Return office visit in 3 weeks [facility] Medical History Pulmonary embolism Dysphagia Uninodular goiter (nontoxic) Chronic pain Type 2 diabetes mellitus with polyneuropathy H. 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 CHF (congestive heart failure) History of poliomyelitis GERD (gastroesophageal reflux disease) Morbid obesity Mood disorder Nasal polyps Positive PPD Angina of effort ARTEM (obstructive sleep apnea) Hemiplegia affecting dominant side Asthma Other pulmonary embolism and infarction Left ventricular hypertrophy Syncope Type 2 diabetes mellitus with hyperglycemia, with long-term current use of insulin Hyperlipidemia LDL goal <70 Essential hypertension Surgical History History of carpal tunnel surgery History of right knee joint replacement History of esophagogastroduodenoscopy (EGD) History of cardiac catheterization Hx of knee surgery History of coronary artery stent placement Family History Father Stroke Brain cancer CVD (cardiovascular disease) Diabetes Mother Diabetes Social History Household Members: Significant Other Housing: Apartment Alcohol intake: never Patient Tobacco Use Status: Never used Tobacco Advance Directives Date on File: 11/08/20 service: No Review of Systems Const Denies fatigue, Denies fever(s), Denies night sweats, Denies poor appetite and Denies weight loss ENT Reports Normal hearing present, Denies dental pain, Denies dysphagia, Denies hearing loss, Denies mouth pain, Denies odynophagia, Denies throat swelling, Denies tongue swelling and Reports other (Dentition adequate) Card Reports no additional complaints Resp Reports no additional complaints GI Denies abdominal pain, Denies melena, Denies bloating, Denies hematochezia, Reports constipation, Denies GI cramping, Denies dysphagia, Denies excessive flatus, Denies early satiety, Reports heartburn, Denies diarrhea, Denies nausea, Denies odynophagia, Denies vomiting and Denies hematemesis Skin/Breast Denies pruritus, Denies lesions, Denies rash and Denies jaundice Neuro Reports Normal hearing present and Denies Abnormal speech present Endo Denies fatigue Aller/Immun Denies throat swelling and Denies tongue swelling Physical Exam Vital Signs: Last Vital Signs Pulse 112 H 12/11/22 10:05 BP 138/83 12/11/22 10:05 BMI result Body Mass Index 40.6 Const General: cooperative, no acute distress, well developed and well groomed Nutritional Appearance: well nourished and overweight Orientation/consciousness: oriented to person, oriented to place and oriented to time Limitations: language barrier, physical limitations and other limitations (Walks with lofstrand crutches) HEENT Head: Yes normocephalic and Yes atraumatic Eyes General: appearance normal, both eyes and all related structures Pupils: Equal, round and reactive pupils present Neck Neck: Yes normal visual inspection and Yes no lymphadenopathy Thyroid: Thyroid normal Resp Effort & Inspection: normal respiratory effort and able to speak in complete sentences Auscultation: clear to auscultation bilaterally Cardio Rate: regular rate Rhythm: regular rhythm Heart sounds: Normal, physiologic split S2 sound present Peripheral pulses: radial pulses present and posterior tibial pulses present GI Inspection: No distended, No Abdominal panniculus present and Yes obesity Palpation (GI): Soft to palpation, nontender, no guarding, not rigid and No hepatosplenomegaly present Percussion: Yes normal to percussion Auscultation: normal bowel sounds Rectal Exam - Male: Yes deferred Skin General skin exam: no rashes or lesions noted, turgor normal, skin not dry, no jaundice, No spider nevi and no striae Rashes: no rashes Nails: normal Neuro General: oriented to person, oriented to place and oriented to time Cranial nerves: Yes Equal, round and reactive pupils present and Yes Normal hearing present Speech: No Abnormal speech present Extrem Other: Long knee brace right leg General: No clubbing, No cyanosis and No edema Psych Appearance: grossly normal and well kempt Mental Status: mental status grossly normal Speech and movement: Normal speech and movement present Affect: normal affect Attitude: cooperative Thought process: Normal thought process present and not confabulating Thought content: Normal thought content present Insight: Limited insight present (Psych) Judgement: Limited judgement present (Psych) Assessment & Plan Assessment & Plan (1) Chronic idiopathic constipation: Code(s): K59.04 - Chronic idiopathic constipation Plan: HUNGARIAN #Sophy Live He is here with his who is supportive. He says that with the Linzess 145 it was only moving his bowels ?a little bit. ? also with this he was having greater burning in the epigastric area and heartburn. This despite continuing on pantoprazole 40 mg twice a day. I explained to him that this usually means that we are not at a high enough dose yet to keep things moving in the right direction, and when gas packs up carries the stomach acid with it. With this he is agreeable to trying the 290 micro g dose of the Linzess. I will also give him 20 mg famotidine for breakthrough to try to ease the discomfort until we can get better bowel motility established. Return office visit in 3 weeks (2) GERD (gastroesophageal reflux disease): Code(s): K21.9 - Gastro-esophageal reflux disease without esophagitis (3) Tubular adenoma of colon: Comment: 11/2022=TA but poor prep repeat in 1 year Code(s): D12.6 - Benign neoplasm of colon, unspecified Medications: New linaclotide (Linzess) 290 mcg PO QAM 30 days 30 caps 6RF K59.04 - Chronic idiopathic constipation famotidine (Pepcid) 20 mg PO DAILY 30 tabs 0RF Refilled pantoprazole (Protonix) 40 mg PO BID 30 days 60 tabs 6RF K21.9 - Gastro-esophageal reflux disease without esophagitis, K29.70 - Gastritis, unspecified, without bleeding simethicone after meals 180 mg PO QID 30 days 120 caps 6RF Discontinued linaclotide (Linzess) Discontinued Reason: Doctor's Order 145 mcg PO QAM 30 caps 3RF K21.9 - Gastro-esophageal reflux disease without esophagitis, K59.04 - Chronic idiopathic constipation Coding Level of Care Code Est Pt Level 3 (79017) Diagnoses Chronic idiopathic constipation K59.04 GERD (gastroesophageal reflux disease) K21.9 Tubular adenoma of colon D12.6
[2022-12-11 10:05] VITALS: BP 138/83; PULSE 112; BMI 40.6
== END 2022-12-11 11:23 | disposition home or self-care (01) ==
PROVIDERS: PCP Internal Medicine; Visit Provider Nurse Practitioner
DX: K59.04 Chronic idiopathic constipation (principal); K21.9 Gastro-esophageal reflux disease without esophagitis; D12.6 Benign neoplasm of colon, unspecified
CPT/HCPCS: 99213

== ENCOUNTER → 2023-02-11 12:00 | Outpatient (REF) | payer MEDICAID, SELFPAY | LOC: HO.CARD 12:00 | PROVIDERS: PCP Internal Medicine; Visit Provider Internal Medicine | DX: I42.9 Cardiomyopathy, unspecified (principal) | CPT/HCPCS: 93306; Q9957 ==

== ENCOUNTER → 2023-02-11 12:08 | Outpatient (BNV) | payer MEDICAID, SELFPAY | PROVIDERS: PCP Internal Medicine; Visit Provider Internal Medicine Cardiovascular Disease | DX: I42.9 Cardiomyopathy, unspecified (principal) | CPT/HCPCS: 93306 ==

== ENCOUNTER → 2023-02-15 08:32 | Outpatient (REF) | payer MEDICAID, SELFPAY ==
--- NOTE | 2023-02-15 08:37 | HM_ITS ---
* Total monitoring time 1 day. * Underlying rhythm is sinus with an average rate of 91/Min. Range 66 to 141/Min. * About 29% of the time, rate > 100/Min. * Very rare ventricular ectopy. * No significant pauses or AV blocks. * No patient markers or diary events. MTDD
== END ==
LOC: HO.CARD 08:32
PROVIDERS: PCP Internal Medicine; Visit Provider Internal Medicine
DX: R00.0 Tachycardia, unspecified (principal)
CPT/HCPCS: 93225

== ENCOUNTER → 2023-02-15 08:37 | Outpatient (BNV) | payer MEDICAID, SELFPAY | PROVIDERS: PCP Internal Medicine; Visit Provider Internal Medicine | DX: R00.0 Tachycardia, unspecified (principal) | CPT/HCPCS: 93227 ==

== ENCOUNTER 2023-02-17 10:16 | Outpatient (AMB) | payer MEDICAID, SELFPAY ==
--- NOTE | 2023-02-17 10:23 | MHC.OFFVIS ---
Intake Vital Signs 02/17/23 10:26 Height 5 ft 4 in Weight 233 lb 11.04 oz BMI 40.1 BP 130/80 Blood Pressure Location Lt brachial Position Sitting Pulse 109 H Intake Visit Reasons: 1 year follow up Intake Note: 1 year w/ EKG Manager Embalmer Funeral Director Required: Yes Manager Embalmer Funeral Director Language: Commercial Intelligence Manager Name: Nancy [phone] Accompanied by: Spouse Allergies shellfish derived Allergy (Severe, Verified 02/17/23 10:27) SWOLLEN THROAT apple [Apple] Allergy (Intermediate, Verified 02/17/23 10:27) SWELLING egg [Egg] Allergy (Intermediate, Verified 02/17/23 10:27) HIVES influenza virus vaccine, specific [Influenza Virus Vacc,Specific] Allergy (Intermediate, Verified 02/17/23 10:27) SWELLING Penicillins Allergy (Mild, Verified 02/17/23 10:27) RASH lisinopril [Lisinopril] Allergy (Unknown, Verified 02/17/23 10:27) UNKNOWN nifedipine [From Procardia] Allergy (Unknown, Verified 02/17/23 10:27) UNKNOWN Medication List - Last Reconciled 02/17/23 by Adam Horvath MD acetaminophen (Tylenol Extra Strength) 500 mg PO Q6H PRN albuterol sulfate 90 mcg/actuation 2 puffs inhalation Q4-6H PRN albuterol sulfate 2.5 mg inhalation QID alcohol swabs (Alcohol Prep Pads) 0 pad topical QID atorvastatin 80 mg PO BEDTIME blood sugar diagnostic (FreeStyle Lite Strips) As directed blood-glucose meter (FreeStyle Lite Meter kit) As directed 3x/day calcium carbonate (Antacid Extra Strength (calcium carb)) 1 tab PO BID carvedilol 25 mg PO chlorthalidone 25 mg PO QAM dulaglutide (Trulicity) 3 mg (0.5 mL) subcut QWEEK 28 days duloxetine 60 mg PO DAILY famotidine 20 mg PO QAM ferrous sulfate (FeroSul) 325 mg PO QPM fluticasone propionate 50 mcg/actuation 1 spray intranasal DAILY fluticasone propionate 110 mcg/actuation (Flovent HFA) 1 puff PO BID furosemide 20 mg PO DAILY gabapentin 100 mg PO TID insulin glargine (Lantus Solostar U-100 Insulin) 10 units (0.1 mL) subcut QAM 30 days lancets (TRUEplus Lancets) As directed linaclotide (Linzess) 290 mcg PO QAM 30 days lisinopril 40 mg PO QAM loratadine (Allergy Relief (loratadine)) 10 mg PO DAILY meclizine 12.5 mg PO TID PRN naloxone 4 mg/actuation (Narcan) 0 sprays intranasal oxycodone-acetaminophen 5-325 mg 1 tab PO Q6H PRN pantoprazole (Protonix) 40 mg PO BID 30 days pen needle, diabetic (Pentips) As directed plecanatide (Trulance) 3 mg PO DAILY prazosin 2 mg PO quetiapine ER 300 mg PO DAILY@1700 rivaroxaban (Xarelto) 2.5 mg PO BID simethicone 180 mg PO QID 30 days topiramate 50 mg PO BEDTIME trazodone 150 mg PO BEDTIME PRN [Wheelchair As directed] HPI HPI Comments History of Present Illness Details Davon returns for follow-up regarding tachycardia. Generally doing well without any specific concerns. Denies any anginal-type issues or shortness of breath or in fact anything cardiac at all. In the past, he has had shortness of breath for to be chronic and from asthma. Otherwise, he has had a cardiac catheterization many years ago, that showed only minimal irregularities. Overall, no new concerns since last seen. [facility] Medical History Pulmonary embolism Dysphagia Uninodular goiter (nontoxic) Chronic pain Type 2 diabetes mellitus with polyneuropathy H. 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 CHF (congestive heart failure) History of poliomyelitis GERD (gastroesophageal reflux disease) Morbid obesity Mood disorder Nasal polyps Positive PPD Angina of effort ARTEM (obstructive sleep apnea) Hemiplegia affecting dominant side Asthma Other pulmonary embolism and infarction Left ventricular hypertrophy Syncope Type 2 diabetes mellitus with hyperglycemia, with long-term current use of insulin Hyperlipidemia LDL goal <70 Essential hypertension Surgical History History of carpal tunnel surgery History of right knee joint replacement History of esophagogastroduodenoscopy (EGD) History of cardiac catheterization Hx of knee surgery History of coronary artery stent placement Family History Father Stroke Brain cancer CVD (cardiovascular disease) Diabetes Mother Diabetes Social History Household Members: Significant Other Housing: Apartment Alcohol intake: never Patient Tobacco Use Status: Never used Tobacco Advance Directives Date on File: 11/08/20 service: No Review of Systems Const Denies weakness ENT Denies dizziness Card Denies chest pain, Denies chest pain with activity, Denies syncope, Denies rapid heart rate, Denies pedal edema, Denies edema, Denies leg edema, Denies lightheadedness, Denies palpitations, Denies dyspnea on exertion and Denies orthopnea Resp Denies cough and Denies dyspnea on exertion GI Denies hematochezia and Denies change in stool character Musc Denies abnormal gait, Denies muscle cramps, Denies muscle weakness, Denies numbness, Denies radiating pain into limb and Denies tingling Neuro Denies abnormal gait, Denies dizziness, Denies syncope, Denies numbness, Denies tingling and Denies weakness Endo Denies palpitations Physical Exam Vital Signs: Last Vital Signs Pulse 109 H 02/17/23 10:26 BP 130/80 02/17/23 10:26 BMI result Body Mass Index 40.1 Const General: comfortable and no acute distress Orientation/consciousness: patient oriented x3 HEENT Other: Unremarkable Head: Yes normal to inspection Neck Neck: Yes normal visual inspection Chest Chest palpation & inspection: normal inspection of the chest Resp Auscultation: clear to auscultation bilaterally Cardio Palpation: normal PMI Heart sounds: S1 normal heart sound present, S2 normal heart sound present, no gallops, no murmurs and no rubs GI Palpation (GI): Soft to palpation Back/Spine/Pelvis Other: unremarkable Skin General skin exam: no rashes or lesions noted Neuro General: patient oriented x3 Extrem General: Yes normal to inspection Psych Mental Status: mental status grossly normal Office Procedures EKG Details: EKG with sinus tachycardia at 109/Min; no significant ST-T changes and otherwise unremarkable. [id number], Complete Assessment & Plan Assessment & Plan (1) Sinus tachycardia: Code(s): R00.0 - Tachycardia, unspecified (2) Essential hypertension: Code(s): I10 - Essential (primary) hypertension (3) ARTEM (obstructive sleep apnea): Code(s): G47.33 - Obstructive sleep apnea (adult) (pediatric) (4) Asthma: Code(s): J45.909 - Unspecified asthma, uncomplicated Qualifiers: Asthma complication type: uncomplicated Asthma persistence: persistent Asthma severity: unspecified severity Qualified Code(s): J45.909 - Unspecified asthma, uncomplicated (5) Physical deconditioning: Code(s): R53.81 - Other malaise Plan EKG is shows sinus tachycardia. Holter rate to be reported but in the preliminary review, heart rate is over 100 around 29% the time. Echocardiogram with preserved LVEF at 55-60%. Cardiac catheterization in 2013 had shown minimal irregularities. Overall, he has chronic sinus tachycardia. This is likely multifactorial. Could be from some combination of deconditioning, autonomic insufficiency, inappropriate sinus tachycardia, bronchodilator use. He is on beta-blockers and that can be continued without changes. Otherwise, seems stable. Coding Level of Care Code Est Pt Level 3 (90708) Diagnoses Sinus tachycardia R00.0 Essential hypertension I10 ARTEM (obstructive sleep apnea) G47.33 Persistent asthma without complication, unspecified asthma severity J45.909 Asthma complication type: uncomplicated Asthma persistence: persistent Asthma severity: unspecified severity Physical deconditioning R53.81 CPT Codes EKG - CPT: 99028-[id number], Complete ([id number])
[2023-02-17 10:26] VITALS: BP 130/80; PULSE 109; BMI 40.1
== END 2023-02-17 10:46 | disposition home or self-care (01) ==
PROVIDERS: PCP Internal Medicine; Referring Provider Internal Medicine; Visit Provider Internal Medicine
DX: R00.0 Tachycardia, unspecified (principal); I10 Essential (primary) hypertension; G47.33 Obstructive sleep apnea (adult) (pediatric); J45.909 Unspecified asthma, uncomplicated; R53.81 Other malaise
CPT/HCPCS: 93010; 99213

== ENCOUNTER → 2023-02-17 10:16 | Outpatient (BNVA) | payer MEDICAID, SELFPAY | PROVIDERS: PCP Internal Medicine; Visit Provider Internal Medicine | DX: R00.0 Tachycardia, unspecified (principal); I10 Essential (primary) hypertension; G47.33 Obstructive sleep apnea (adult) (pediatric); J45.909 Unspecified asthma, uncomplicated; R53.81 Other malaise | CPT/HCPCS: 93005; 99212 ==

== ENCOUNTER 2023-02-18 08:49 | Outpatient (AMB) | payer MEDICAID, SELFPAY ==
--- NOTE | 2023-02-18 08:54 | MHC.OFFVIS ---
Intake Vital Signs 02/18/23 08:56 Height 5 ft 4 in Weight 233 lb 11.04 oz BMI 40.1 BP 159/76 H Blood Pressure Location Lt brachial Position Sitting Pulse 104 H Intake Visit Reasons: 3 weeks follow up Intake Note: Patient presents to in office visit today in follow up of CIC CC: Patient's Linzess dose was increased to 290 MCG at his last visit and he was started on Famotidine. Today patient reports he has been doing better with medications and denies having any new GI symptoms. Inspector Poising Required: Yes Accompanied by: CHAIN HOIST OPERATOR Allergies shellfish derived Allergy (Severe, Verified 02/18/23 09:05) SWOLLEN THROAT apple [Apple] Allergy (Intermediate, Verified 02/18/23 09:05) SWELLING egg [Egg] Allergy (Intermediate, Verified 02/18/23 09:05) HIVES influenza virus vaccine, specific [Influenza Virus Vacc,Specific] Allergy (Intermediate, Verified 02/18/23 09:05) SWELLING Penicillins Allergy (Mild, Verified 02/18/23 09:05) RASH lisinopril [Lisinopril] Allergy (Unknown, Verified 02/18/23 09:05) UNKNOWN nifedipine [From Procardia] Allergy (Unknown, Verified 02/18/23 09:05) UNKNOWN HPI 3 weeks follow up HPI Details Assessment & Plan (1) Chronic idiopathic constipation: Code(s): K59.04 - Chronic idiopathic constipation Plan: FRENCH #Sophy Live He is here with his who is supportive. He says that with the Linzess 145 it was only moving his bowels ?a little bit. ? also with this he was having greater burning in the epigastric area and heartburn. This despite continuing on pantoprazole 40 mg twice a day. I explained to him that this usually means that we are not at a high enough dose yet to keep things moving in the right direction, and when gas packs up carries the stomach acid with it. With this he is agreeable to trying the 290 micro g dose of the Linzess. I will also give him 20 mg famotidine for breakthrough to try to ease the discomfort until we can get better bowel motility established. Return office visit in 3 weeks (2) GERD (gastroesophageal reflux disease): Code(s): K21.9 - Gastro-esophageal reflux disease without esophagitis (3) Tubular adenoma of colon: Comment: 11/2022=TA but poor prep repeat in 1 year Code(s): D12.6 - Benign neoplasm of colon, unspecified Medications: New linaclotide (Linze ss) 290 mcg PO QAM 30 days 30 caps 6RF K59.04 - Chronic i diopathic constipa tion famotidine (Pepcid ) 20 mg PO DAILY 30 tabs 0RF Refilled pantoprazole (Prot esther) 40 mg PO BID 30 d ays 60 tabs 6RF K21.9 - Gastro-eso phageal reflux dis ease without esoph agitis, K29.70 - G astritis, unspecif ied, without bleed ing simethicone aft er meals 180 mg PO QID 30 days 120 caps 6RF Discontinued linaclotide (Linze ss) Discontinue d Reason: Doctor' s Order 145 mcg PO QAM 30 caps 3RF K21.9 - Gastro-eso phageal reflux dis ease without esoph agitis, K59.04 - C hronic idiopathic constipation TODAY'S VISIT FRENCH #Sophy Hanson He is here with a female family member who is supportive. The Linzess at 290 micro g is working better for him she and he is moving his bowels now twice a day. However, he still feels like he has incomplete evacuation. At this point we will continue the Linzess an add bisacodyl in the evening. He will start with 1 tablet and increase to 2 if he needs it. He continues to do well on his pantoprazole ROV 4 weeks. [facility] Medical History Pulmonary embolism Dysphagia Uninodular goiter (nontoxic) Chronic pain Type 2 diabetes mellitus with polyneuropathy H. 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 CHF (congestive heart failure) History of poliomyelitis GERD (gastroesophageal reflux disease) Morbid obesity Mood disorder Nasal polyps Positive PPD Angina of effort ARTEM (obstructive sleep apnea) Hemiplegia affecting dominant side Asthma Other pulmonary embolism and infarction Left ventricular hypertrophy Syncope Type 2 diabetes mellitus with hyperglycemia, with long-term current use of insulin Hyperlipidemia LDL goal <70 Essential hypertension Surgical History History of carpal tunnel surgery History of right knee joint replacement History of esophagogastroduodenoscopy (EGD) History of cardiac catheterization Hx of knee surgery History of coronary artery stent placement Family History Father Stroke Brain cancer CVD (cardiovascular disease) Diabetes Mother Diabetes Social History Household Members: Significant Other Housing: Apartment Alcohol intake: never Patient Tobacco Use Status: Never used Tobacco Advance Directives Date on File: 11/08/20 service: No Review of Systems Const Denies fatigue, Denies fever(s), Denies night sweats, Denies poor appetite and Denies weight loss ENT Reports Normal hearing present, Denies dysphagia, Denies odynophagia, Denies throat swelling and Denies tongue swelling Card Reports no additional complaints Resp Reports no additional complaints GI Denies abdominal pain, Denies melena, Denies bloating, Denies hematochezia, Reports constipation, Denies GI cramping, Denies dysphagia, Denies excessive flatus, Denies early satiety, Reports heartburn, Denies diarrhea, Denies nausea, Denies odynophagia, Denies vomiting and Denies hematemesis Musc Reports abnormal gait and Reports muscle weakness Skin/Breast Denies pruritus, Denies lesions, Denies rash and Denies jaundice Neuro Reports Normal hearing present, Denies Abnormal speech present and Reports abnormal gait Endo Denies fatigue Aller/Immun Denies throat swelling and Denies tongue swelling Physical Exam Vital Signs: Last Vital Signs Pulse 104 H 02/18/23 08:56 BP 159/76 H 02/18/23 08:56 BMI result Body Mass Index 40.1 Const General: cooperative, no acute distress, well developed and well groomed Nutritional Appearance: well nourished and overweight Orientation/consciousness: oriented to person, oriented to place and oriented to time Limitations: language barrier and crutches ([place] crutches) HEENT Head: Yes normocephalic and Yes atraumatic Eyes General: appearance normal, both eyes and all related structures Pupils: Equal, round and reactive pupils present Neck Neck: Yes normal visual inspection and Yes no lymphadenopathy Thyroid: Thyroid normal Resp Effort & Inspection: normal respiratory effort and able to speak in complete sentences Auscultation: clear to auscultation bilaterally Cardio Rate: regular rate Rhythm: regular rhythm Heart sounds: Normal, physiologic split S2 sound present Peripheral pulses: radial pulses present and posterior tibial pulses present GI Inspection: No distended, No Abdominal panniculus present and Yes obesity Palpation (GI): Soft to palpation, nontender, no guarding, not rigid and No hepatosplenomegaly present Percussion: Yes normal to percussion Auscultation: normal bowel sounds Rectal Exam - Male: Yes deferred Skin General skin exam: no rashes or lesions noted, turgor normal, skin not dry, no jaundice, No spider nevi and no striae Rashes: no rashes Nails: normal Neuro General: oriented to person, oriented to place and oriented to time Cranial nerves: Yes Equal, round and reactive pupils present and Yes Normal hearing present Speech: No Abnormal speech present Extrem Other: bilateral CT braces hands General: No clubbing, No cyanosis, No edema, Yes Dysmorphic and Yes muscle atrophy Psych Appearance: grossly normal and well kempt Mental Status: mental status grossly normal Speech and movement: Normal speech and movement present Affect: normal affect Attitude: cooperative Thought process: Normal thought process present and not confabulating Thought content: Normal thought content present Insight: Limited insight present (Psych) Judgement: Limited judgement present (Psych) Assessment & Plan Assessment & Plan (1) Chronic idiopathic constipation: Code(s): K59.04 - Chronic idiopathic constipation (2) GERD (gastroesophageal reflux disease): Code(s): K21.9 - Gastro-esophageal reflux disease without esophagitis Plan FRENCH #Sophy Live He is here with a female family member who is supportive. The Linzess at 290 micro g is working better for him she and he is moving his bowels now twice a day. However, he still feels like he has incomplete evacuation. At this point we will continue the Linzess an add bisacodyl in the evening. He will start with 1 tablet and increase to 2 if he needs it. He continues to do well on his pantoprazole ROV 4 weeks. Medications: New bisacodyl (Dulcolax (bisacodyl)) 10 mg (2 x 5 mg) PO BEDTIME 30 days 60 tabs 3RF K59.04 - Chronic idiopathic constipation Coding Level of Care Code Est Pt Level 3 (94531) Diagnoses Chronic idiopathic constipation K59.04 GERD (gastroesophageal reflux disease) K21.9
[2023-02-18 08:56] VITALS: BP 159/76; PULSE 104; BMI 40.1
== END 2023-02-18 09:22 | disposition home or self-care (01) ==
PROVIDERS: PCP Internal Medicine; Visit Provider Nurse Practitioner
DX: K59.04 Chronic idiopathic constipation (principal); K21.9 Gastro-esophageal reflux disease without esophagitis
CPT/HCPCS: 99213

== ENCOUNTER → 2023-02-18 08:49 | Outpatient (BNVA) | payer MEDICAID, SELFPAY | PROVIDERS: PCP Internal Medicine; Visit Provider Nurse Practitioner | DX: K59.04 Chronic idiopathic constipation (principal); K21.9 Gastro-esophageal reflux disease without esophagitis | CPT/HCPCS: 99212 ==

== ENCOUNTER 2023-05-14 10:16 | Outpatient (REF) | payer MEDICAID, SELFPAY ==
[2023-05-14 11:19] LABS: MANUAL DIFF FLAG NO
[2023-05-14 11:23] LABS: Basophils Absolute Auto 0.1 X10*3/uL (0.0-0.2); Basophils Percent Auto 0.6 % (0-2); Eosinophils Absolute Auto 0.3 X10*3/uL (0.0-0.4); Eosinophils Percent Auto 2.9 % (0-4); Hemoglobin 13.1 g/dl (14.0-18.0); Imm Gran Abs Auto 0.04 X10*3/uL (0.00-0.03); Imm Gran Pct Auto 0.4 % (0.0-0.4); Lymphocytes Absolute Auto 2.9 X10*3/uL (1.2-4.9); Lymphocytes Percent Auto 27.2 % (20-40); Mean Corpuscular HGB Conc 32.8 g/dl (31.0-36.0); Mean Corpuscular Hemoglobin 28.7 pg (27.0-33.0); Mean Corpuscular Volume 87.5 fL (80.0-98.0); Mean Platelet Volume 10.9 fL (9.4-12.4); Monocytes Absolute Auto 0.8 X10*3/uL (0.1-1.2); Monocytes Percent Auto 7.6 % (2-11); Neutrophils Absolute Auto 6.6 x10*3/uL (2.0-8.3); Neutrophils Percent Auto 61.3 % (45-73); Platelet Count 288 X10*3/uL (160-400); Red Blood Count 4.57 X10*6/uL (4.60-5.80); White Blood Count 10.7 X10*3/uL (4.8-10.8)
[2023-05-14 11:34] LABS: Estimated Average Glucose 151 mg/dL; Hemoglobin A1c % 6.9 % (<6.0)
[2023-05-14 11:51] LABS: Alanine Aminotransferase 16 U/L (0-40); Albumin Level 4.3 g/dL (3.5-5.0); Alkaline Phosphatase 84 U/L (39-117); Anion Gap 16 (12-20); Aspartate Amino Transferase 14 U/L (5-37); Bilirubin Total 0.5 mg/dL (0.0-1.0); Blood Urea Nitrogen 28 mg/dL (9-16); Calcium 10.4 mg/dL (8.4-10.2); Carbon Dioxide 24 mmol/L (22-29); Chloride 106 mmol/L (96-108); Cholesterol 229 mg/dL (<200); Estimated Glomerular Filt Rate 40; Glucose Random 139 mg/dL (60-115); HDL Cholesterol 36 mg/dL (>40); Iron 68 mcg/dL (45-160); LDL Cholesterol Calculated 155 mg/dL (<100); Percent Iron Saturation 26 % (15-50); Potassium 3.9 mmol/L (3.3-5.1); Sodium 142 mmol/L (135-145); Total Iron Binding Capacity 264 mcg/dL (228-428); Total Protein 8.2 g/dL (6.5-8.0); Triglycerides 192 mg/dL (<150); Unsaturated Iron Binding 196 ug/dL
== END 2023-05-14 10:17 | disposition home or self-care (01) ==
LOC: HO.HHCL 10:16
PROVIDERS: Visit Provider Internal Medicine
DX: D50.8 Other iron deficiency anemias (principal); E11.22 Type 2 diabetes mellitus with diabetic chronic kidney disease; N18.32 Chronic kidney disease, stage 3b; E78.2 Mixed hyperlipidemia; Z79.4 Long term (current) use of insulin
CPT/HCPCS: 36415; 80053; 80061; 83036; 83540; 85025

== ENCOUNTER 2023-08-23 11:04 | Outpatient (AMB) | payer MEDICAID, SELFPAY ==
--- NOTE | 2023-08-23 11:15 | A.OFFVIS_ITS ---
Vital Signs 08/23/23 11:16 Height 5 ft 4 in Weight 223 lb 12.307 oz BMI 38.4 BP 130/84 Blood Pressure Location Lt brachial Position Sitting Pulse 109 H Pulse Source Pulse Oximeter Intake Visit Reasons: Mixed hyperlipidemia, HTN/CONFIRMED Intake Note: Patient present today for Hyperlipidemia follow up visit. Executive Secretary Required: Yes Executive Secretary Language: Final Assembly Worker Services: Executive Secretary Present Executive Secretary Name: Yonis Information Interpreted: non-clinical & clinical Accompanied by: IMAGING ASSISTANT Allergies shellfish derived Allergy (Severe, Verified 08/23/23 11:20) SWOLLEN THROAT apple [Apple] Allergy (Intermediate, Verified 08/23/23 11:20) SWELLING egg [Egg] Allergy (Intermediate, Verified 08/23/23 11:20) HIVES influenza virus vaccine, specific [Influenza Virus Vacc,Specific] Allergy (Intermediate, Verified 08/23/23 11:20) SWELLING Penicillins Allergy (Mild, Verified 08/23/23 11:20) RASH lisinopril [Lisinopril] Allergy (Unknown, Verified 08/23/23 11:20) UNKNOWN nifedipine [From Procardia] Allergy (Unknown, Verified 08/23/23 11:20) UNKNOWN HPI Comments Details: This is a 57-year-old male previously seen by endocrinology for thyroid nodule and for type 2 diabetes. Today's appointment as about mixed hyperlipidemia. Patient is currently on atorvastatin 80 mg q.d.Claims compliance . Taking Lantus and Trulicity for diabetes. Hx of CVA. Laboratory Tests 12/14/19 12/14/19 12:00 12:00 TSH 0.80 Free T4 0.82 Thyroglobulin Antibody <1 Thyroid Peroxidase Ab 1 [facility] Medical History Pulmonary embolism Dysphagia Uninodular goiter (nontoxic) Chronic pain Type 2 diabetes mellitus with polyneuropathy H. 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 CHF (congestive heart failure) History of poliomyelitis GERD (gastroesophageal reflux disease) Morbid obesity Mood disorder Nasal polyps Positive PPD Angina of effort ARTEM (obstructive sleep apnea) Hemiplegia affecting dominant side Asthma Other pulmonary embolism and infarction Left ventricular hypertrophy Syncope Type 2 diabetes mellitus with hyperglycemia, with long-term current use of insulin Hyperlipidemia LDL goal <70 Essential hypertension Surgical History History of carpal tunnel surgery History of right knee joint replacement History of esophagogastroduodenoscopy (EGD) History of cardiac catheterization Hx of knee surgery History of coronary artery stent placement Family History Father Stroke Brain cancer CVD (cardiovascular disease) Diabetes Mother Diabetes Social History Household Members: Significant Other Housing: Apartment Alcohol intake: never Patient Tobacco Use Status: Never used Tobacco Advance Directives Date on File: 11/08/20 service: No Physical Exam Vital Signs: Last Vital Signs Pulse 109 H 08/23/23 11:16 BP 130/84 08/23/23 11:16 BMI result Body Mass Index 38.4 Assessment & Plan Assessment & Plan (1) Hyperlipidemia LDL goal <70: Code(s): E78.5 - Hyperlipidemia, unspecified Category: Medical Plan: This is a 57-year-old male with a history of type 2 diabetes and mixed hyperlipidemia with previous CVA with goal LDL cholesterol <50. Patient is a very high risk for recurrence of stroke and CAD and cholesterol is not controlled with maximum dose of statin. Will start PCSK9 inhibitor Repatha 140 mg q.2 weeks in combination with the atorvastatin. We will then recheck lipid profile 2 months after starting Repatha. Orders: Orders Lipid Panel 3 Months E78.5 - Hyperlipidemia, unspecified Hemoglobin A1c 3 Months E78.5 - Hyperlipidemia, unspecified Medications: New evolocumab (Repatha SureClick) 140 mg subcut Q2W 2 mL 5RF evolocumab (Repatha SureClick) 140 mg subcut Q2W 2 mL 5RF Coding Level of Care Code Est Pt Level 3 (49612) Diagnoses Hyperlipidemia LDL goal <70 E78.5
[2023-08-23 11:16] VITALS: BP 130/84; PULSE 109; BMI 38.4
== END 2023-08-23 12:05 | disposition home or self-care (01) ==
PROVIDERS: PCP Internal Medicine; Visit Provider Internal Medicine Endocrinology, Diabetes & Metabolism
DX: E78.5 Hyperlipidemia, unspecified (principal)
CPT/HCPCS: 99213

== ENCOUNTER → 2023-08-23 11:04 | Outpatient (BNVA) | payer MEDICAID, SELFPAY | PROVIDERS: PCP Internal Medicine; Visit Provider Internal Medicine Endocrinology, Diabetes & Metabolism | DX: E78.5 Hyperlipidemia, unspecified (principal) | CPT/HCPCS: 99212 ==

== ENCOUNTER 2023-09-06 11:35 | Emergency (ER) | payer MEDICAID, SELFPAY ==
[2023-09-06 11:43] VITALS: BP 156/90; PULSE 106; RESP 16; TEMP 36.8; O2SAT 97; BMI 39.5
--- NOTE | 2023-09-06 11:44 | ED_ITS ---
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 He states that initially the area was small however reports that over the last month it has increased in size and bleeds. He states that the lesion is painful. He has never had this before. His primary care physician sent a referral for a surgeon but his appointment isn't until October. He denies any fevers or chills. He is otherwise feeling well. No other complaints or concerns at this time. MD complaint: Right lower lip lesion Onset (ago): month(s) Location: mouth Radiation: non-radiation Quality: aching Pain Consistency: constant Relieving factors: none Exacerbating factors: none Associated symptoms: denies other symptoms Treatments prior to arrival: none Related Data Home Medications ?Medication ?Instructions ?Recorded ?Confirmed albuterol sulfate 2.5 mg/3 mL 2.5 mg inhalation QID 12/14/19 09/09/23 (0.083 %) solution for nebulization duloxetine 60 mg capsule,delayed 60 mg PO DAILY 12/14/19 09/09/23 release furosemide 20 mg tablet 20 mg PO DAILY 12/14/19 09/09/23 gabapentin 100 mg capsule 100 mg PO TID 12/14/19 09/09/23 lancets 33 gauge (TRUEplus Lancets) #100 ea 12/14/19 09/09/23 quetiapine 300 mg tablet,extended 300 mg PO DAILY@1700 12/14/19 09/09/23 release 24 hr rivaroxaban 2.5 mg tablet (Xarelto) 2.5 mg PO BID 12/14/19 09/09/23 topiramate 50 mg tablet 50 mg PO BEDTIME 12/14/19 09/09/23 acetaminophen 500 mg tablet 500 mg PO Q6H PRN Pain 03/22/20 09/09/23 (Tylenol Extra Strength) albuterol sulfate 90 mcg/actuation 2 puff inhalation Q4-6H PRN 01/06/21 09/09/23 aerosol inhaler Wheezing fluticasone propionate 110 1 puff PO BID 01/06/21 09/09/23 mcg/actuation HFA aerosol inhaler (Flovent HFA) fluticasone propionate 50 1 spray intranasal DAILY 01/06/21 09/09/23 mcg/actuation nasal spray,suspension trazodone 150 mg tablet 150 mg PO BEDTIME PRN Insomnia 01/06/21 09/09/23 lisinopril 40 mg tablet 40 mg PO QAM 12/25/21 09/09/23 loratadine 10 mg tablet (Allergy 10 mg PO DAILY 12/25/21 09/09/23 Relief (loratadine)) alcohol swabs (Alcohol Prep Pads) 0 pad topical QID 01/06/22 09/09/23 atorvastatin 80 mg tablet 80 mg PO BEDTIME 01/06/22 09/09/23 blood sugar diagnostic (Jessayle #10 ea 01/06/22 09/09/23 Lite Strips) carvedilol 25 mg tablet 25 mg PO 01/06/22 09/09/23 chlorthalidone 25 mg tablet 25 mg PO QAM 01/06/22 09/09/23 ferrous sulfate 325 mg (65 mg 325 mg PO QPM 01/06/22 09/09/23 iron) tablet (FeroSul) naloxone 4 mg/actuation nasal 0 spray intranasal 01/06/22 09/09/23 spray (Narcan) pen needle, diabetic 32 gauge x #50 ea 01/06/22 09/09/2332 (Pentips) prazosin 2 mg capsule 2 mg PO 01/06/22 09/09/23 oxycodone-acetaminophen 5 mg-325 1 tab PO Q6H PRN severe pain 12/11/22 09/09/23 mg tablet Previous Rx's ?Medication ?Instructions ?Recorded Wheelchair #1 ea 07/18/20 blood-glucose meter (Jessayle #1 ea 04/29/21 Lite Meter kit) meclizine 12.5 mg tablet 12.5 mg PO TID PRN dizziness #20 10/06/21 tabs dulaglutide 3 mg/0.5 mL 3 mg (0.5 mL) subcut QWEEK 28 days 11/04/21 subcutaneous pen injector #2 mL (Trulicity) insulin glargine 100 unit/mL (3 10 unit (0.1 mL) subcut QAM 30 01/08/22 mL) subcutaneous pen (Lantus days #3 mL Solostar U-100 Insulin) calcium carbonate (Antacid Ext Str 1 tab PO BID #60 tabs 07/30/22 (calcium carb)) plecanatide 3 mg tablet (Trulance) 3 mg PO DAILY #30 tabs 10/13/22 pantoprazole 40 mg tablet,delayed 40 mg PO BID #60 tabs 06/07/23 release bisacodyl 5 mg tablet,delayed 10 mg (2 x 5 mg) PO BEDTIME #60 06/10/23 release tabs famotidine 20 mg tablet 20 mg PO QAM #30 tabs 07/15/23 linaclotide 290 mcg capsule 290 mcg PO QAM #30 caps 07/15/23 (Linzess) evolocumab 140 mg/mL subcutaneous 140 mg subcut Q2W #2 mL 08/23/23 pen injector (Repatha SureClick) simethicone 180 mg capsule (Gas 180 mg PO QID #120 caps 08/30/23 Relief (simethicone)) Allergies Allergy/AdvReac Type Severity Reaction Status Date / Time shellfish derived Allergy Severe SWOLLEN Verified 09/09/23 08:23 THROAT apple [Apple] Allergy Intermediate SWELLING Verified 09/09/23 08:23 egg [Egg] Allergy Intermediate HIVES Verified 09/09/23 08:23 influenza virus vaccine, Allergy Intermediate SWELLING Verified 09/09/23 08:23 specific [Influenza Virus Vacc,Specific] Penicillins Allergy Mild RASH Verified 09/09/23 08:23 lisinopril [Lisinopril] Allergy Unknown UNKNOWN Verified 09/09/23 08:23 nifedipine [From Procardia] Allergy Unknown UNKNOWN Verified 09/09/23 08:23 Review of Systems Review of Systems: Yes all other systems are reviewed and are negative Constitutional: Constitutional: Reports as per [facility] Past Medical History Medical History Pulmonary embolism Dysphagia Uninodular goiter (nontoxic) Chronic pain Type 2 diabetes mellitus with polyneuropathy H. 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 CHF (congestive heart failure) History of poliomyelitis GERD (gastroesophageal reflux disease) Morbid obesity Mood disorder Nasal polyps Positive PPD Angina of effort ARTEM (obstructive sleep apnea) Hemiplegia affecting dominant side Asthma Other pulmonary embolism and infarction Left ventricular hypertrophy Syncope Type 2 diabetes mellitus with hyperglycemia, with long-term current use of insulin Hyperlipidemia LDL goal <70 Essential hypertension Surgical History History of carpal tunnel surgery History of right knee joint replacement History of esophagogastroduodenoscopy (EGD) History of cardiac catheterization Hx of knee surgery History of coronary artery stent placement Family History Family History Father Stroke Brain cancer CVD (cardiovascular disease) Diabetes Mother Diabetes Social History Social History Household Members: Significant Other Housing: Apartment Alcohol intake: never Patient Tobacco Use Status: Never used Tobacco Advance Directives Date on File: 11/08/20 service: No Physical Exam ED Vital Signs: Vital Signs - 24 hr 09/06/23 11:43 Temperature 98.3 F Pulse Rate 106 H Respiratory Rate 16 Blood Pressure 156/90 H Pulse Oximetry 97 Oxygen Delivery Method Room Air BMI result Body Mass Index 39.5 Const General: cooperative, comfortable and no acute distress Orientation/consciousness: patient oriented x3 Limitations: no limitations HENMT Other: Right lower lip with tender indurated 1cm nodule, no surrounding erythema, warmth or drainage Head: Yes normal to inspection, Yes normocephalic and Yes atraumatic Ears: hearing grossly normal bilaterally General nose exam: Normal external nose present Face and sinus: Yes normal facial exam Mouth: Normal oral and palatal mucosa present, oropharynx normal and moist mucous membranes Throat: Yes posterior oropharynx normal Eyes General: appearance normal, both eyes and all related structures Eyelids: Yes eyelids normal Conjunctivae: conjunctivae normal Sclerae: sclerae normal Pupils: Equal, round and reactive pupils present EOM: EOMs intact bilaterally Neck Neck: Yes normal visual inspection, Yes full ROM and Yes no lymphadenopathy Lymphatic: no lymphadenopathy noted Chest Chest palpation & inspection: normal inspection of the chest Resp Effort & Inspection: normal respiratory effort and able to speak in complete sentences Auscultation: clear to auscultation bilaterally, no crackles, no rales, no rhonchi and no wheezes Cardio Rate: regular rate Rhythm: regular rhythm Heart sounds: S1 normal heart sound present and S2 normal heart sound present GI Inspection: Yes normal to inspection Skin General skin exam: no rashes or lesions noted Trauma: no lacerations or abrasions Wounds: no wounds Neuro General: patient oriented x3 and moves all extremities Cranial nerves: Yes Equal, round and reactive pupils present Extrem General: Yes normal to inspection Right upper extremity: normal to inspection Left upper extremity: normal to inspection Right lower extremity: normal to inspection Left lower extremity: normal to inspection Medical Decision Making Medical Decision Making MDM Narrative: This is a [id number]-male who presents to the ER with complaints of lower lip lesion x 1 month. Reporting that the area has increased in size and occasionally bleeds. He reports that he would like it removed. He went to his PCP who referred him to a surgeon but is unable to get into the office until late Oct. Exam revealing tender nodule, no surrounding warmth to suggest infection. Given referral to general surgeon at [facility] to have this removed. Given return precautions. Pt stable for d/c. Differential Diagnosis Differential Diagnoses: The differential diagnosis associated with the presentation includes pyogenic granuloma, cyst, abscess, HSV Discharge Plan Discharge Clinical Impression: Lip lesion Patient Disposition: Home, Self-Care Additional Instructions: You were seen in the emergency department due to a lesion to your right lower lip. You can follow-up with the surgical service here at [facility]. Please call to make an appointment. If any new or worsening symptoms occur including but not limited to fevers, chills, chest pain, shortness of breath, dizziness, please return for re- evaluation. Prescriptions: No Action (DME) Wheelchair See Rx Instructions .Route .MEDSUPPLY Qty: 1 0RF Rx Instructions: As directed Trulicity 3 mg/0.5 mL pen injector 3 mg subcut QWEEK 28 Days Qty: 2 3RF Lantus Solostar U-100 Insulin 100 unit/mL (3 mL) insulin pen 10 unit subcut QAM 30 Days Qty: 3 0RF Rx Instructions: FUTURE REFILLS FROM PCP. calcium carbonate [Antacid Ext Str (calcium carb)] 300 mg (750 mg) tablet,chewable 1 tab PO BID Qty: 60 6RF Trulance 3 mg tablet 3 mg PO DAILY Qty: 30 6RF Hold Instructions: not working pantoprazole 40 mg tablet,delayed release (DR/EC) 40 mg PO BID Qty: 60 6RF bisacodyl 5 mg tablet,delayed release (DR/EC) 10 mg PO BEDTIME Qty: 60 3RF famotidine 20 mg tablet 20 mg PO QAM Qty: 30 2RF Linzess 290 mcg capsule 290 mcg PO QAM Qty: 30 2RF simethicone [Gas Relief (simethicone)] 180 mg capsule 180 mg PO QID Qty: 120 6RF trazodone 150 mg tablet 150 mg PO BEDTIME PRN (Reason: Insomnia) Rx Instructions: May take an addition 150 mg dose if needed fluticasone propionate 50 mcg/actuation spray,suspension 1 spray intranasal DAILY Flovent HFA 110 mcg/actuation HFA aerosol inhaler 1 puff PO BID albuterol sulfate 90 mcg/actuation Hfa Aerosol Inhaler 2 puff INHALATION Q4-6H PRN (Reason: Wheezing) meclizine 12.5 mg tablet 12.5 mg PO TID PRN (Reason: dizziness) Qty: 20 0RF topiramate 50 mg tablet 50 mg PO BEDTIME quetiapine 300 mg tablet extended release 24 hr 300 mg PO DAILY@1700 Rx Instructions: take on an empty stomach duloxetine 60 mg capsule,delayed release(DR/EC) 60 mg PO DAILY Xarelto 2.5 mg tablet 2.5 mg PO BID (DME) lancets [TRUEplus Lancets] 33 gauge misc See Rx Instructions .ROUTE .MEDSUPPLY Qty: 100 Rx Instructions: As directed furosemide 20 mg tablet 20 mg PO DAILY gabapentin 100 mg capsule 100 mg PO TID albuterol sulfate 2.5 mg /3 mL (0.083 %) solution for nebulization 2.5 mg inhalation QID acetaminophen [Tylenol Extra Strength] 500 mg tablet 500 mg PO Q6H PRN (Reason: Pain) (DME) blood-glucose meter [FreeStyle Lite Meter] Kit See Rx Instructions .ROUTE .MEDSUPPLY Qty: 1 0RF Rx Instructions: As directed 3x/day lisinopril 40 mg tablet 40 mg PO QAM loratadine [Allergy Relief (loratadine)] 10 mg tablet 10 mg PO DAILY alcohol swabs [Alcohol Prep Pads] Pads, Medicated 0 pad topical QID (DME) pen needle, diabetic [Pentips] 32 gauge x 5/32 needle See Rx Instructions .ROUTE QID Qty: 50 Rx Instructions: As directed ferrous sulfate [FeroSul] 325 mg (65 mg iron) tablet 325 mg PO QPM (DME) FreeStyle Lite Strips Strip See Rx Instructions .ROUTE QID Qty: 10 Rx Instructions: As directed chlorthalidone 25 mg tablet 25 mg PO QAM carvedilol 25 mg tablet 25 mg PO atorvastatin 80 mg tablet 80 mg PO BEDTIME prazosin 2 mg capsule 2 mg PO naloxone [Narcan] 4 mg/actuation spray,non-aerosol 0 spray intranasal oxycodone-acetaminophen 5-325 mg tablet 1 tab PO Q6H PRN (Reason: severe pain) Repatha SureClick 140 mg/mL pen injector 140 mg subcut Q2W Qty: 2 5RF Referrals: [facility] General Surgeons [Provider Group] Discharge Date/Time: 09/06/23 12:22 Print Language: Estonian
== END 2023-09-06 12:22 | disposition home or self-care (01) ==
PROVIDERS: Emergency Provider Emergency Medicine; PCP Internal Medicine
DX: K13.79 Other lesions of oral mucosa (principal); Z79.899 Other long term (current) drug therapy
CPT/HCPCS: 99281

== ENCOUNTER 2023-09-09 08:15 | Outpatient (AMB) | payer MEDICAID, SELFPAY ==
[2023-09-09 08:16] VITALS: BMI 39.5
--- NOTE | 2023-09-09 08:16 | MHC.OFFVIS ---
Vital Signs 09/09/23 08:16 Height 5 ft 4 in Weight 229 lb 15.991 oz BMI 39.5 Intake Visit Reasons: bleeding lip lesion Intake Note: This patient presents for [facility] emergency department follow-up for bleeding lip lesion. Patient c/o; reports increase in size, reports bleeding, reports unable to eat, reports multiple skin lesion on face he will also like excised. 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: Propeller Mechanic Name: [email or web address] Information Interpreted: non-clinical & clinical Accompanied by: Spouse Allergies shellfish derived Allergy (Severe, Verified 09/09/23 08:23) SWOLLEN THROAT apple [Apple] Allergy (Intermediate, Verified 09/09/23 08:23) SWELLING egg [Egg] Allergy (Intermediate, Verified 09/09/23 08:23) HIVES influenza virus vaccine, specific [Influenza Virus Vacc,Specific] Allergy (Intermediate, Verified 09/09/23 08:23) SWELLING Penicillins Allergy (Mild, Verified 09/09/23 08:23) RASH lisinopril [Lisinopril] Allergy (Unknown, Verified 09/09/23 08:23) UNKNOWN nifedipine [From Procardia] Allergy (Unknown, Verified 09/09/23 08:23) UNKNOWN Medication List - Last Reconciled 09/09/23 by Earl Hudson MD acetaminophen (Tylenol Extra Strength) 500 mg PO Q6H PRN albuterol sulfate 90 mcg/actuation 2 puffs inhalation Q4-6H PRN albuterol sulfate 2.5 mg inhalation QID alcohol swabs (Alcohol Prep Pads) 0 pad topical QID atorvastatin 80 mg PO BEDTIME bisacodyl 10 mg (2 x 5 mg) PO BEDTIME blood sugar diagnostic (FreeStyle Lite Strips) As directed blood-glucose meter (FreeStyle Lite Meter kit) As directed 3x/day calcium carbonate (Antacid Ext Str (calcium carb)) 1 tab PO BID carvedilol 25 mg PO chlorthalidone 25 mg PO QAM dulaglutide (Trulicity) 3 mg (0.5 mL) subcut QWEEK 28 days duloxetine 60 mg PO DAILY evolocumab (Repatha SureClick) 140 mg subcut Q2W famotidine 20 mg PO QAM ferrous sulfate (FeroSul) 325 mg PO QPM fluticasone propionate 50 mcg/actuation 1 spray intranasal DAILY fluticasone propionate 110 mcg/actuation (Flovent HFA) 1 puff PO BID furosemide 20 mg PO DAILY gabapentin 100 mg PO TID insulin glargine (Lantus Solostar U-100 Insulin) 10 units (0.1 mL) subcut QAM 30 days lancets (TRUEplus Lancets) As directed linaclotide (Linzess) 290 mcg PO QAM lisinopril 40 mg PO QAM loratadine (Allergy Relief (loratadine)) 10 mg PO DAILY meclizine 12.5 mg PO TID PRN naloxone 4 mg/actuation (Narcan) 0 sprays intranasal oxycodone-acetaminophen 5-325 mg 1 tab PO Q6H PRN pantoprazole 40 mg PO BID pen needle, diabetic (Pentips) As directed plecanatide (Trulance) 3 mg PO DAILY prazosin 2 mg PO quetiapine ER 300 mg PO DAILY@1700 rivaroxaban (Xarelto) 2.5 mg PO BID simethicone (Gas Relief (simethicone)) 180 mg PO QID topiramate 50 mg PO BEDTIME trazodone 150 mg PO BEDTIME PRN [Wheelchair As directed] HPI HPI bleeding lip lesion: Details: 57-year-old male referred for a bleeding lip lesion. He says he has noticed this lump on his lower lip for about over a month now. He says that this has been increasing in size steadily. He says that this is bleeds easily and often times he feels that the bleeding is a lot. He therefore wants this removed He is on anticoagulation with Xarelto for history of DVTs. [facility] Medical History Pulmonary embolism Dysphagia Uninodular goiter (nontoxic) Chronic pain Type 2 diabetes mellitus with polyneuropathy H. 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 CHF (congestive heart failure) History of poliomyelitis GERD (gastroesophageal reflux disease) Morbid obesity Mood disorder Nasal polyps Positive PPD Angina of effort ARTEM (obstructive sleep apnea) Hemiplegia affecting dominant side Asthma Other pulmonary embolism and infarction Left ventricular hypertrophy Syncope Type 2 diabetes mellitus with hyperglycemia, with long-term current use of insulin Hyperlipidemia LDL goal <70 Essential hypertension Surgical History History of carpal tunnel surgery History of right knee joint replacement History of esophagogastroduodenoscopy (EGD) History of cardiac catheterization Hx of knee surgery History of coronary artery stent placement Family History Father Stroke Brain cancer CVD (cardiovascular disease) Diabetes Mother Diabetes Social History Household Members: Significant Other Housing: Apartment Alcohol intake: never Patient Tobacco Use Status: Never used Tobacco Advance Directives Date on File: 11/08/20 service: No Review of Systems Const Denies chills and Denies fever(s) Card Denies chest pain, Denies dyspnea and Reports dyspnea on exertion Resp Denies cough, Denies dyspnea and Reports dyspnea on exertion GI Denies hematochezia and Denies change in bowel habits Denies hematuria and Denies difficulty urinating Musc Details: Has history of polio, ambulates with cane Reports abnormal gait, Denies back pain, Reports deformity, Reports arthralgias and Reports limited range of motion Neuro Reports abnormal gait, Denies focal weakness and Denies convulsions Psych Denies depression and Denies mood swings Physical Exam Vital Signs: BMI result Body Mass Index 39.5 Const Other: Ambulates with a cane on both sides General: comfortable and no acute distress HEENT Other: Lip lesion on the lower lip a little to the right of the midline, appears a little friable, 1.2 cm in widest diameter, a narrow stalk Resp Effort & Inspection: normal respiratory effort Cardio Rate: regular rate GI Palpation (GI): Soft to palpation Extrem Other: Muscle atrophy from polio Office Procedures Excision Details: He was placed in reclining position. The area of the lip lesion as described above was prepped and draped. Lidocaine 1% was used for local anesthesia. An elliptical incision was made on the mucosa of the lip around the lesion using blade 15. This carried down through the full-thickness of the mucosa and part of the fatty layer. This specimen was sent for pathology. I closed the incision with full-thickness chromic 4-0 sutures. There was minimal blood loss. He tolerated the procedure well. There were no complications. [id number] face/ear/eyelid/nose/lip/mucous membrane 1.1cm-2cm Procedure code (CPT) selection complete Assessment & Plan Assessment & Plan (1) Lip lesion: Code(s): K13.0 - Diseases of lips Category: Medical Plan: He wanted the lip lesion removed because of bleeding. He is also on anticoagulation. Excision was done under local anesthesia in the office. He tolerated procedure well. He was given wound care instructions. I will see him in the office for a wound check in about 2-3 weeks. Coding Level of Care Code New Pt Level 3 (54987) Diagnoses Lip lesion K13.0 CPT Codes Face/Ear/Eyelid/Nose/Lip/Mucous Membrane - CPT: 91854-Ppttodwn face/ear/eyelid/nose/lip/mucous membrane 1.1cm-2cm ([id number])
== END 2023-09-09 09:02 | disposition home or self-care (01) ==
PROVIDERS: PCP Internal Medicine; Visit Provider Surgery
DX: K13.0 Diseases of lips (principal); L98.0 Pyogenic granuloma
CPT/HCPCS: 11442; 99213

== ENCOUNTER 2023-09-09 08:15 | Outpatient (REF) | payer MEDICAID, SELFPAY | END 2023-09-09 08:16 | disposition home or self-care (01) | LOC: HO.LNP 08:15 | PROVIDERS: PCP Internal Medicine; Visit Provider Surgery | DX: K13.0 Diseases of lips (principal) | CPT/HCPCS: 11442; 88304; 99212 ==

== ENCOUNTER 2023-09-23 08:46 | Outpatient (AMB) | payer MEDICAID, SELFPAY ==
--- NOTE | 2023-09-23 08:55 | A.OFFVIS_ITS ---
Vital Signs 09/23/23 09:00 Height 5 ft 4 in Weight 229 lb 15.991 oz BMI 39.5 Intake Visit Reasons: 2 week follow up bleeding lip lesion Intake Note: This patient presents for 2 week follow up status post excision lip lesion. Pt c/o;reports no complaints. Office procedure: 09/09/2023 excision lip lesion Laborer Pipelines Required: Yes Laborer Pipelines Language: Supervisor [employer] Services: Laborer Pipelines Present Laborer Pipelines Name: Yue Information Interpreted: non-clinical & clinical Accompanied by: Spouse Allergies shellfish derived Allergy (Severe, Verified 09/23/23 09:01) SWOLLEN THROAT apple [Apple] Allergy (Intermediate, Verified 09/23/23 09:01) SWELLING egg [Egg] Allergy (Intermediate, Verified 09/23/23 09:01) HIVES influenza virus vaccine, specific [Influenza Virus Vacc,Specific] Allergy (Intermediate, Verified 09/23/23 09:01) SWELLING Penicillins Allergy (Mild, Verified 09/23/23 09:01) RASH lisinopril [Lisinopril] Allergy (Unknown, Verified 09/23/23 09:01) UNKNOWN nifedipine [From Procardia] Allergy (Unknown, Verified 09/23/23 09:01) UNKNOWN HPI HPI 2 week follow up bleeding lip lesion: Details: He had undergone excision of a bleeding lip lesion under local anesthesia last 09/09/2023. He tolerated procedure well. He currently denies complaints and feels well overall. He said he no longer has any bleeding from the area. [facility] Medical History (Updated 09/23/23 @ 09:08 by Earl Hudson MD) Benign skin lesion of cheek Pulmonary embolism Dysphagia Uninodular goiter (nontoxic) Chronic pain Type 2 diabetes mellitus with polyneuropathy H. 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 CHF (congestive heart failure) History of poliomyelitis GERD (gastroesophageal reflux disease) Morbid obesity Mood disorder Nasal polyps Positive PPD Angina of effort ARTEM (obstructive sleep apnea) Hemiplegia affecting dominant side Asthma Other pulmonary embolism and infarction Left ventricular hypertrophy Syncope Type 2 diabetes mellitus with hyperglycemia, with long-term current use of insulin Hyperlipidemia LDL goal <70 Essential hypertension Surgical History History of excision of lesion (~09/09/23) History of carpal tunnel surgery History of right knee joint replacement History of esophagogastroduodenoscopy (EGD) History of cardiac catheterization Hx of knee surgery History of coronary artery stent placement Family History Father Stroke Brain cancer CVD (cardiovascular disease) Diabetes Mother Diabetes Social History Household Members: Significant Other Housing: Apartment Alcohol intake: never Patient Tobacco Use Status: Never used Tobacco Advance Directives Date on File: 11/08/20 service: No Review of Systems Const Denies chills and Denies fever(s) Card Denies chest pain and Denies dyspnea Resp Denies dyspnea Physical Exam Vital Signs: BMI result Body Mass Index 39.5 Const Other: Using crutches due to history of polio General: comfortable and no acute distress HEENT Other: Has small papillomatous lesions all over his cheeks on both the left and the right side under the eyes ranging in size from about 3 mm to 1 mm Excision site on lower lip is well healed, sutures seemed to have been resorbed already Assessment & Plan Assessment & Plan (1) Lip lesion: Code(s): K13.0 - Diseases of lips Category: Medical Plan: Status post excision. His surgical site is well healed. Sutures seem to have been resorb already. His path report shows pyogenic granuloma. I explained to him the benign nature of this pathology. (2) Benign skin lesion of cheek: Code(s): L98.9 - Disorder of the skin and subcutaneous tissue, unspecified Category: Medical Plan: He wants these small lesions removed. These appeared to be papillomas. I will schedule him for excision and cauterization of this lesions in the office under local anesthesia. He understands the technique of this procedure. He is aware of the risks, benefits, and alternatives. Coding Level of Care Code Global (13509) Diagnoses Lip lesion K13.0 Benign skin lesion of cheek L98.9
[2023-09-23 09:00] VITALS: BMI 39.5
== END 2023-09-23 09:10 | disposition home or self-care (01) ==
PROVIDERS: PCP Internal Medicine; Visit Provider Surgery
DX: K13.0 Diseases of lips (principal); L98.9 Disorder of the skin and subcutaneous tissue, unspecified
CPT/HCPCS: 99024

== ENCOUNTER → 2023-09-23 08:46 | Outpatient (BNVA) | payer MEDICAID, SELFPAY | PROVIDERS: PCP Internal Medicine; Visit Provider Surgery | DX: L98.9 Disorder of the skin and subcutaneous tissue, unspecified (principal); Z48.817 Encounter for surgical aftercare following surgery on the skin and subcutaneous tissue; Z87.2 Personal history of diseases of the skin and subcutaneous tissue; Z98.890 Other specified postprocedural states | CPT/HCPCS: 99212 ==

== ENCOUNTER 2023-09-28 13:31 | Outpatient (AMB) | payer MEDICAID, SELFPAY ==
--- NOTE | 2023-09-28 13:33 | MHC.OFFVIS ---
Vital Signs 09/28/23 13:38 Height 5 ft 4 in Weight 223 lb BMI 38.3 BP 140/85 H Blood Pressure Location Lt brachial Position Sitting Pulse 102 H Intake Visit Reasons: follow up req from patient Intake Note: Davon presents to in office today in follow up of constipation. CC: Patient states that he has been having constipation lately and mild heartburn. Patient states that he has not received a call to schedule repeat colonoscopy. Field Technical Assistant Required: Yes Allergies shellfish derived Allergy (Severe, Verified 09/28/23 13:43) SWOLLEN THROAT apple [Apple] Allergy (Intermediate, Verified 09/28/23 13:43) SWELLING egg [Egg] Allergy (Intermediate, Verified 09/28/23 13:43) HIVES influenza virus vaccine, specific [Influenza Virus Vacc,Specific] Allergy (Intermediate, Verified 09/28/23 13:43) SWELLING Penicillins Allergy (Mild, Verified 09/28/23 13:43) RASH lisinopril [Lisinopril] Allergy (Unknown, Verified 09/28/23 13:43) UNKNOWN nifedipine [From Procardia] Allergy (Unknown, Verified 09/28/23 13:43) UNKNOWN HPI HPI follow up req from patient: Details: Assessment & Plan (1) Chronic idiopathic constipation: Code(s): K59.04 - Chronic idiopathic constipation (2) GERD (gastroesophageal reflux disease): Code(s): K21.9 - Gastro-esophageal reflux disease without esophagitis Plan BERMUDIAN #[facility] Live He is here with a female family member who is supportive. The Linzess at 290 micro g is working better for him she and he is moving his bowels now twice a day. However, he still feels like he has incomplete evacuation. At this point we will continue the Linzess an add bisacodyl in the evening. He will start with 1 tablet and increase to 2 if he needs it. He continues to do well on his pantoprazole ROV 4 weeks. Medications: New bisacodyl (Dulcolax (bisacodyl)) 10 mg (2 x 5 mg) PO BEDTIME 30 days 60 tabs 3RF K59.04 - Chronic idiopathic constipation TODAY'S VISIT BERMUDIAN #[id number] Pt has been lost to follow up since 02/2023, at that time I expected a 4 week follow up. He is here today with a female family member who is supportive. He says he has been having some bloating and gas trapping and at times he is not moving his bowels well. This despite taking the LInzess 290mcg and the bisacodyl 2 tabs qhs. He will move his bowels every day, but has incomplete evacuation. The bloating is also a great concern to him. We will increase the bisacodyl to 2qhs and 1 qam with his LInzess 290mcg adn he has simethicone at home. He reminds me that he is due for repeat colonoscopy, the last was 1 year ago and he had large TA's, it appears this was lost in scheduling somehow. I will re order and re send a message. [facility] Medical History Goiter Pre-op examination SOB (shortness of breath) Gastritis SUSY (acute kidney injury) Enteritis Epigastric pain Preoperative cardiovascular examination Physical deconditioning Colon cancer screening Right knee pain History of poliomyelitis Upper abdominal pain Benign skin lesion of cheek Pulmonary embolism Dysphagia Uninodular goiter (nontoxic) Chronic pain Type 2 diabetes mellitus with polyneuropathy H. 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 CHF (congestive heart failure) GERD (gastroesophageal reflux disease) Morbid obesity Mood disorder Nasal polyps Positive PPD Angina of effort ARTEM (obstructive sleep apnea) Hemiplegia affecting dominant side Asthma Other pulmonary embolism and infarction Left ventricular hypertrophy Syncope Type 2 diabetes mellitus with hyperglycemia, with long-term current use of insulin Hyperlipidemia LDL goal <70 Essential hypertension Surgical History History of right knee joint replacement History of excision of lesion (~09/09/23) History of carpal tunnel surgery History of esophagogastroduodenoscopy (EGD) History of cardiac catheterization Hx of knee surgery History of coronary artery stent placement Family History Father Stroke Brain cancer CVD (cardiovascular disease) Diabetes Mother Diabetes Social History Household Members: Significant Other Housing: Apartment Alcohol intake: never Patient Tobacco Use Status: Never used Tobacco Advance Directives Date on File: 11/08/20 service: No Review of Systems Const Denies fatigue, Denies fever(s), Denies night sweats, Denies poor appetite and Denies weight loss ENT Reports Normal hearing present, Denies dental pain, Denies dysphagia, Denies hearing loss, Denies mouth pain, Denies odynophagia, Denies throat swelling, Denies tongue swelling and Reports other (Dentition adequate) Card Reports no additional complaints Resp Reports no additional complaints GI Details: Denies abdominal pain, Denies melena, Reports bloating, Denies hematochezia, Reports constipation, Denies GI cramping, Denies dysphagia, Denies excessive flatus, Denies early satiety, Reports heartburn, Denies diarrhea, Denies nausea, Denies odynophagia, Denies vomiting and Denies hematemesis Musc Reports abnormal gait Skin/Breast Denies pruritus, Denies lesions, Denies rash and Denies jaundice Neuro Reports Normal hearing present, Denies Abnormal speech present, Reports abnormal gait and Reports lack of coordination Endo Denies fatigue Aller/Immun Denies throat swelling and Denies tongue swelling Physical Exam Vital Signs: Last Vital Signs Pulse 102 H 09/28/23 13:38 BP 140/85 H 09/28/23 13:38 BMI result Body Mass Index 38.3 Const General: cooperative, no acute distress, well developed and well groomed Nutritional Appearance: well nourished and obese Orientation/consciousness: oriented to person, oriented to place and oriented to time Limitations: language barrier and ambulation with cane (loftstrand) HEENT Head: Yes normocephalic and Yes atraumatic Eyes General: appearance normal, both eyes and all related structures Pupils: Equal, round and reactive pupils present Neck Neck: Yes normal visual inspection and Yes no lymphadenopathy Thyroid: Thyroid normal Resp Effort & Inspection: normal respiratory effort and able to speak in complete sentences Auscultation: clear to auscultation bilaterally Cardio Rate: regular rate Rhythm: regular rhythm Heart sounds: Normal, physiologic split S2 sound present Peripheral pulses: radial pulses present and posterior tibial pulses present GI Inspection: No distended, No Abdominal panniculus present and Yes obesity Palpation (GI): Soft to palpation, nontender, no guarding, not rigid and No hepatosplenomegaly present Percussion: Yes normal to percussion Auscultation: normal bowel sounds Rectal Exam - Male: Yes deferred Skin General skin exam: no rashes or lesions noted, turgor normal, skin not dry, no jaundice, No spider nevi and no striae Rashes: no rashes Nails: normal Neuro General: oriented to person, oriented to place and oriented to time Cranial nerves: Yes Equal, round and reactive pupils present and Yes Normal hearing present Speech: No Abnormal speech present Extrem Other: brace on right wrist General: Yes normal to inspection, No clubbing, No cyanosis and No edema Psych Appearance: grossly normal and well kempt Mental Status: mental status grossly normal Speech and movement: Normal speech and movement present Affect: normal affect Attitude: cooperative Thought process: Normal thought process present and not confabulating Thought content: Normal thought content present Insight: Fair insight present (Psych) Judgement: Fair judgement present (Psych) Assessment & Plan Assessment & Plan (1) Chronic idiopathic constipation: Code(s): K59.04 - Chronic idiopathic constipation Category: Medical (2) GERD (gastroesophageal reflux disease): Code(s): K21.9 - Gastro-esophageal reflux disease without esophagitis Category: Medical (3) Tubular adenoma of colon: Comment: 11/2022=TA but poor prep repeat in 1 year Code(s): D12.6 - Benign neoplasm of colon, unspecified Category: Medical Plan BERMUDIAN #[id number] Pt has been lost to follow up since 02/2023, at that time I expected a 4 week follow up. He is here today with a female family member who is supportive. He says he has been having some bloating and gas trapping and at times he is not moving his bowels well. This despite taking the LInzess 290mcg and the bisacodyl 2 tabs qhs. He will move his bowels every day, but has incomplete evacuation. The bloating is also a great concern to him. We will increase the bisacodyl to 2qhs and 1 qam with his LInzess 290mcg adn he has simethicone at home. He reminds me that he is due for repeat colonoscopy, the last was 1 year ago and he had large TA's, it appears this was lost in scheduling somehow. I will re order and re send a message. ROV 6 weeks Orders: Orders Colonoscopy - GI Use Only 09/28/23 D12.6 - Benign neoplasm of colon, unspecified Medications: New peg 3350-electrolytes 236-22.74-6.74 -5.86 gram (Golytely) until fecal effluent is clear; do not exceed a total volume of 2,000 mL 240 mL PO Q10M 4,000 mL 0RF 1 day Z12.11 - Encounter for screening for malignant neoplasm of colon bisacodyl (Dulcolax (bisacodyl)) 10 mg (2 x 5 mg) PO BEDTIME 4 tabs 0RF 2 days Changed From bisacodyl 10 mg (2 x 5 mg) PO BEDTIME 60 tabs 3RF K59.04 - Chronic idiopathic constipation To bisacodyl 15 mg (3 x 5 mg) PO BEDTIME 60 tabs 3RF K59.04 - Chronic idiopathic constipation Refilled simethicone (Gas Relief (simethicone)) 180 mg PO QID 120 caps 6RF linaclotide (Linzess) 290 mcg PO QAM 30 caps 6RF K59.04 - Chronic idiopathic constipation pantoprazole 40 mg PO BID 60 tabs 6RF K21.9 - Gastro-esophageal reflux disease without esophagitis, K29.70 - Gastritis, unspecified, without bleeding Discontinued plecanatide Discontinued Reason: Doctor's Order 3 mg PO DAILY 30 tabs 6RF K59.04 - Chronic idiopathic constipation Coding Level of Care Code Est Pt Level 3 (12251) Diagnoses Chronic idiopathic constipation K59.04 GERD (gastroesophageal reflux disease) K21.9 Tubular adenoma of colon D12.6
[2023-09-28 13:38] VITALS: BP 140/85; PULSE 102; BMI 38.3
== END 2023-09-28 14:08 | disposition home or self-care (01) ==
PROVIDERS: PCP Internal Medicine; Visit Provider Nurse Practitioner
DX: K59.04 Chronic idiopathic constipation (principal); K21.9 Gastro-esophageal reflux disease without esophagitis; D12.6 Benign neoplasm of colon, unspecified
CPT/HCPCS: 99213

== ENCOUNTER → 2023-09-28 13:31 | Outpatient (BNVA) | payer MEDICAID, SELFPAY | PROVIDERS: PCP Internal Medicine; Visit Provider Nurse Practitioner | DX: K59.04 Chronic idiopathic constipation (principal); K21.9 Gastro-esophageal reflux disease without esophagitis; D12.6 Benign neoplasm of colon, unspecified | CPT/HCPCS: 99212 ==

== ENCOUNTER 2023-11-24 11:08 | Outpatient (AMB) | payer MEDICAID, SELFPAY ==
--- NOTE | 2023-11-24 11:15 | MHC.OFFVIS ---
Intake Visit Reasons: excision and cauterization on face Intake Note: Office procedure: excision and cauterization on face Protein Chemist Required: Yes Protein Chemist Language: Bag Machine Tender Services: Protein Chemist Present (Yue) Information Interpreted: non-clinical & clinical Accompanied by: DINING SERVICE WORKER Allergies shellfish derived Allergy (Severe, Verified 11/24/23 11:16) SWOLLEN THROAT apple [Apple] Allergy (Intermediate, Verified 11/24/23 11:16) SWELLING egg [Egg] Allergy (Intermediate, Verified 11/24/23 11:16) HIVES influenza virus vaccine, specific [Influenza Virus Vacc,Specific] Allergy (Intermediate, Verified 11/24/23 11:16) SWELLING Penicillins Allergy (Mild, Verified 11/24/23 11:16) RASH lisinopril [Lisinopril] Allergy (Unknown, Verified 11/24/23 11:16) UNKNOWN nifedipine [From Procardia] Allergy (Unknown, Verified 11/24/23 11:16) UNKNOWN HPI HPI excision and cauterization on face: Details: He is here for excision of papillomas. He wants papilloma underneath each eye removed. There was a total of 2, 1 on each side that he wants excised. [facility] Medical History Goiter Pre-op examination SOB (shortness of breath) Gastritis SUSY (acute kidney injury) Enteritis Epigastric pain Preoperative cardiovascular examination Physical deconditioning Colon cancer screening Right knee pain History of poliomyelitis Upper abdominal pain Benign skin lesion of cheek Pulmonary embolism Dysphagia Uninodular goiter (nontoxic) Chronic pain Type 2 diabetes mellitus with polyneuropathy H. 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 CHF (congestive heart failure) GERD (gastroesophageal reflux disease) Morbid obesity Mood disorder Nasal polyps Positive PPD Angina of effort ARTEM (obstructive sleep apnea) Hemiplegia affecting dominant side Asthma Other pulmonary embolism and infarction Left ventricular hypertrophy Syncope Type 2 diabetes mellitus with hyperglycemia, with long-term current use of insulin Hyperlipidemia LDL goal <70 Essential hypertension Surgical History History of right knee joint replacement History of excision of lesion (~09/09/23) History of carpal tunnel surgery History of esophagogastroduodenoscopy (EGD) History of cardiac catheterization Hx of knee surgery History of coronary artery stent placement Family History Father Stroke Brain cancer CVD (cardiovascular disease) Diabetes Mother Diabetes Social History Household Members: Significant Other Housing: Apartment Alcohol intake: never Patient Tobacco Use Status: Never used Tobacco Advance Directives Date on File: 11/08/20 service: No Office Procedures Excision Details: He had a papilloma measuring about 3 mm underneath the left eye. He had another papilloma measuring about 5 mm underneath the right eye. Both of these areas were prepped and draped. Lidocaine 1% was used for local anesthesia. I used fine scissors to excise these 2 papillomas at the base which was narrow. I cauterized the excision base for hemostasis. No sutures were therefore placed. He tolerated procedure well. There were no immediate complications. There was minimal blood loss [id number] face/ear/eyelid/nose/lip/mucous membrane 0.6cm-1cm Procedure code (CPT) selection complete Assessment & Plan Assessment & Plan (1) Benign skin lesion of cheek: Code(s): L98.9 - Disorder of the skin and subcutaneous tissue, unspecified Category: Medical Plan: Two papillomas were excised from the face as described above. He tolerated procedure well. He was given wound care instructions. Coding Level of Care Code Procedure Only Diagnoses Benign skin lesion of cheek L98.9 CPT Codes Face/Ear/Eyelid/Nose/Lip/Mucous Membrane - CPT: 55574-[id number] face/ear/eyelid/nose/lip/mucous membrane 0.6cm-1cm ([id number])
== END 2023-11-24 11:33 | disposition home or self-care (01) ==
PROVIDERS: PCP Internal Medicine; Visit Provider Surgery
DX: L98.9 Disorder of the skin and subcutaneous tissue, unspecified (principal)
CPT/HCPCS: 11440

== ENCOUNTER 2023-12-15 09:58 | Outpatient (REF) | payer MEDICAID, SELFPAY ==
[2023-12-15 12:06] LABS: Estimated Average Glucose 166 mg/dL; Hemoglobin A1C 183.1392 umol/L; Hemoglobin A1c % 7.4 % (<6.0); Total Hemoglobin (HGBA1C) 3184.3468 umol/L
[2023-12-15 12:25] LABS: Alanine Aminotransferase 16 U/L (0-40); Alkaline Phosphatase 88 U/L (39-117); Anion Gap 13 (12-20); Aspartate Amino Transferase 24 U/L (5-37); Bilirubin Total 0.3 mg/dL (0.0-1.0); Blood Urea Nitrogen 31 mg/dL (9-16); Calcium 9.7 mg/dL (8.4-10.2); Carbon Dioxide 27 mmol/L (22-29); Chloride 107 mmol/L (96-108); Cholesterol 106 mg/dL (<200); Estimated Glomerular Filt Rate 38; Glucose Random 136 mg/dL (60-115); HDL Cholesterol 33 mg/dL (>40); LDL Cholesterol Calculated 45 mg/dL (<100); Potassium 4.4 mmol/L (3.3-5.1); Sodium 143 mmol/L (135-145); Total Protein 7.7 g/dL (6.5-8.0); Triglycerides 141 mg/dL (<150)
== END 2023-12-15 09:59 | disposition home or self-care (01) ==
LOC: HO.HHCL 09:58
PROVIDERS: Internal Medicine Endocrinology, Diabetes & Metabolism; Visit Provider Internal Medicine
DX: E11.22 Type 2 diabetes mellitus with diabetic chronic kidney disease (principal); N18.32 Chronic kidney disease, stage 3b; Z79.4 Long term (current) use of insulin; E78.5 Hyperlipidemia, unspecified
CPT/HCPCS: 36415; 80053; 80061; 83036

== ENCOUNTER 2023-12-20 10:53 | Outpatient (AMB) | payer MEDICAID, SELFPAY ==
--- NOTE | 2023-12-20 10:56 | A.OFFVIS_ITS ---
Vital Signs 12/20/23 10:58 Height 5 ft 4 in Weight 229 lb 11.547 oz BMI 39.4 BP 138/60 Blood Pressure Location Rt brachial Position Sitting Pulse 110 H Pulse Source Pulse Oximeter Intake Visit Reasons: hyperlipidemia-CONFIRMED Intake Note: Patient present today for Hyperlipidemia follow up visit. Data Integrity Analyst Required: Yes Data Integrity Analyst Language: Wax Ball Knock Out Worker Services: Data Integrity Analyst Present Data Integrity Analyst Name: Jefe [id number] Information Interpreted: non-clinical & clinical Accompanied by: Spouse Allergies shellfish derived Allergy (Severe, Verified 12/20/23 10:59) SWOLLEN THROAT apple [Apple] Allergy (Intermediate, Verified 12/20/23 10:59) SWELLING egg [Egg] Allergy (Intermediate, Verified 12/20/23 10:59) HIVES influenza virus vaccine, specific [Influenza Virus Vacc,Specific] Allergy (Intermediate, Verified 12/20/23 10:59) SWELLING Penicillins Allergy (Mild, Verified 12/20/23 10:59) RASH lisinopril [Lisinopril] Allergy (Unknown, Verified 12/20/23 10:59) UNKNOWN nifedipine [From Procardia] Allergy (Unknown, Verified 12/20/23 10:59) UNKNOWN Medication List - Last Reconciled 12/20/23 by Suraj Stiles MD acetaminophen (Tylenol Extra Strength) 500 mg PO Q6H PRN albuterol sulfate 90 mcg/actuation 2 puffs inhalation Q4-6H PRN albuterol sulfate 2.5 mg inhalation QID alcohol swabs (Alcohol Prep Pads) 0 pad topical QID atorvastatin 80 mg PO BEDTIME bisacodyl 15 mg (3 x 5 mg) PO BEDTIME bisacodyl (Dulcolax (bisacodyl)) 10 mg (2 x 5 mg) PO BEDTIME 2 days blood sugar diagnostic (FreeStyle Lite Strips) As directed blood-glucose meter (FreeStyle Lite Meter kit) As directed 3x/day calcium carbonate (Antacid Ext Str (calcium carb)) 1 tab PO BID carvedilol 25 mg PO chlorthalidone 25 mg PO QAM dulaglutide (Trulicity) 3 mg (0.5 mL) subcut QWEEK 28 days duloxetine 60 mg PO DAILY empagliflozin (Jardiance) 25 mg PO QAM evolocumab (Repatha SureClick) 140 mg subcut Q2W famotidine 20 mg PO QAM ferrous sulfate (FeroSul) 325 mg PO QPM fluticasone propionate 50 mcg/actuation 1 spray intranasal DAILY fluticasone propionate 110 mcg/actuation (Flovent HFA) 1 puff PO BID furosemide 20 mg PO DAILY gabapentin 100 mg PO TID insulin glargine (Lantus Solostar U-100 Insulin) 10 units (0.1 mL) subcut QAM 30 days lancets (TRUEplus Lancets) As directed linaclotide (Linzess) 290 mcg PO QAM lisinopril 40 mg PO QAM loratadine (Allergy Relief (loratadine)) 10 mg PO DAILY meclizine 12.5 mg PO TID PRN naloxone 4 mg/actuation (Narcan) 0 sprays intranasal oxycodone-acetaminophen 5-325 mg 1 tab PO Q6H PRN pantoprazole 40 mg PO BID peg 3350-electrolytes 236-22.74-6.74 -5.86 gram (Golytely) 240 mL PO Q10M 1 day pen needle, diabetic (Pentips) As directed prazosin 2 mg PO quetiapine ER 300 mg PO DAILY@1700 rivaroxaban (Xarelto) 2.5 mg PO BID simethicone (Gas Relief (simethicone)) 180 mg PO QID topiramate 50 mg PO BEDTIME trazodone 150 mg PO BEDTIME PRN [Wheelchair As directed] HPI Comments Details: This is a 57-year-old male previously seen by endocrinology for thyroid nodule and for type 2 diabetes. Today's appointment as about mixed hyperlipidemia. Patient is currently on atorvastatin 80 mg q.d.Claims compliance . Started on PCSK9 inhibitor namely Repatha with improvement in lipids Taking Lantus and Trulicity for diabetes. Hx of CVA. Laboratory Tests 12/14/19 12/14/19 12:00 12:00 TSH 0.80 Free T4 0.82 Thyroglobulin Antibody <1 Thyroid Peroxidase Ab 1 PFSH Medical History Goiter Pre-op examination SOB (shortness of breath) Gastritis SUSY (acute kidney injury) Enteritis Epigastric pain Preoperative cardiovascular examination Physical deconditioning Colon cancer screening Right knee pain History of poliomyelitis Upper abdominal pain Benign skin lesion of cheek Pulmonary embolism Dysphagia Uninodular goiter (nontoxic) Chronic pain Type 2 diabetes mellitus with polyneuropathy H. 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 CHF (congestive heart failure) GERD (gastroesophageal reflux disease) Morbid obesity Mood disorder Nasal polyps Positive PPD Angina of effort ARTEM (obstructive sleep apnea) Hemiplegia affecting dominant side Asthma Other pulmonary embolism and infarction Left ventricular hypertrophy Syncope Type 2 diabetes mellitus with hyperglycemia, with long-term current use of insulin Hyperlipidemia LDL goal <70 Essential hypertension Surgical History History of right knee joint replacement History of excision of lesion (~09/09/23) History of carpal tunnel surgery History of esophagogastroduodenoscopy (EGD) History of cardiac catheterization Hx of knee surgery History of coronary artery stent placement Family History Father Stroke Brain cancer CVD (cardiovascular disease) Diabetes Mother Diabetes Social History Household Members: Significant Other Housing: Apartment Alcohol intake: never Patient Tobacco Use Status: Never used Tobacco Advance Directives Date on File: 11/08/20 service: No Physical Exam Vital Signs: BMI result Body Mass Index 39.4 Assessment & Plan Assessment & Plan (1) Hyperlipidemia LDL goal <70: Code(s): E78.5 - Hyperlipidemia, unspecified Category: Medical Plan: This is a 57-year-old male with a history of type 2 diabetes and mixed hyperlipidemia with previous CVA with goal LDL cholesterol <50. Currently on Repatha and atorvastatin with LDL cholesterol to goal Will continue present therapy. The patient does not need any follow-up visit regard to lipids will be seen here by the primary care diabetes team for continued management of type 2 diabetes Coding Level of Care Code Est Pt Level 3 (97186) Diagnoses Hyperlipidemia LDL goal <70 E78.5
[2023-12-20 10:58] VITALS: BP 138/60; PULSE 110; BMI 39.4
== END 2023-12-20 11:11 | disposition home or self-care (01) ==
PROVIDERS: PCP Internal Medicine; Visit Provider Internal Medicine Endocrinology, Diabetes & Metabolism
DX: E78.5 Hyperlipidemia, unspecified (principal)
CPT/HCPCS: 99213

== ENCOUNTER → 2023-12-20 10:53 | Outpatient (BNVA) | payer MEDICAID, SELFPAY | PROVIDERS: PCP Internal Medicine; Visit Provider Internal Medicine Endocrinology, Diabetes & Metabolism | DX: E78.5 Hyperlipidemia, unspecified (principal) | CPT/HCPCS: 99212 ==

== ENCOUNTER 2024-03-03 13:50 | Outpatient (AMB) | payer MEDICAID, SELFPAY ==
--- NOTE | 2024-03-03 14:04 | MHC.OFFVIS ---
Vital Signs 03/03/24 14:05 Height 5 ft 4 in Weight 233 lb 11.04 oz BMI 40.1 BP 132/80 Blood Pressure Location Lt brachial Position Sitting Pulse 104 H Pulse Source Monitor Intake Visit Reasons: r/s 02/17/24 1 yr followup w/ekg Supervisor Commissary Production Required: Yes Supervisor Commissary Production Name: [id number] Allergies shellfish derived Allergy (Severe, Verified 12/20/23 10:59) SWOLLEN THROAT apple [Apple] Allergy (Intermediate, Verified 12/20/23 10:59) SWELLING egg [Egg] Allergy (Intermediate, Verified 12/20/23 10:59) HIVES influenza virus vaccine, specific [Influenza Virus Vacc,Specific] Allergy (Intermediate, Verified 12/20/23 10:59) SWELLING Penicillins Allergy (Mild, Verified 12/20/23 10:59) RASH lisinopril [Lisinopril] Allergy (Unknown, Verified 12/20/23 10:59) UNKNOWN nifedipine [From Procardia] Allergy (Unknown, Verified 12/20/23 10:59) UNKNOWN Medication List - Last Reconciled 03/03/24 by DELFINO GardnerC acetaminophen (Tylenol Extra Strength) 500 mg PO Q6H PRN albuterol sulfate 2.5 mg inhalation QID albuterol sulfate 90 mcg/actuation 2 puffs inhalation Q4-6H PRN atorvastatin 80 mg PO BEDTIME blood sugar diagnostic (FreeStyle Lite Strips) As directed blood-glucose meter (FreeStyle Lite Meter kit) As directed 3x/day carvedilol 25 mg PO BID chlorthalidone 25 mg PO QAM dulaglutide (Trulicity) 3 mg (0.5 mL) subcut QWEEK 28 days empagliflozin (Jardiance) 25 mg PO QAM evolocumab (Repatha SureClick) 140 mg subcut Q2W famotidine 20 mg PO QAM ferrous sulfate (FeroSul) 325 mg PO QPM fluticasone propionate 50 mcg/actuation 1 spray intranasal DAILY fluticasone propionate 110 mcg/actuation (Flovent HFA) 1 puff PO BID furosemide 20 mg PO DAILY gabapentin 100 mg PO TID insulin glargine (Lantus Solostar U-100 Insulin) 10 units (0.1 mL) subcut QAM 30 days lancets (TRUEplus Lancets) As directed linaclotide (Linzess) 290 mcg PO QAM lisinopril 40 mg PO QAM loratadine (Allergy Relief (loratadine)) 10 mg PO DAILY meclizine 12.5 mg PO TID PRN naloxone 4 mg/actuation (Narcan) 0 sprays intranasal pantoprazole 40 mg PO BID peg 3350-electrolytes 236-22.74-6.74 -5.86 gram (Golytely) 240 mL PO Q10M 1 day pen needle, diabetic (Pentips Pen Needle) As directed prazosin 2 mg PO quetiapine ER 300 mg PO DAILY@1700 rivaroxaban (Xarelto) 2.5 mg PO BID simethicone (Gas Relief (simethicone)) 180 mg PO QID topiramate 50 mg PO BEDTIME [Wheelchair As directed] HPI HPI r/s 02/17/24 1 yr followup w/ekg: Details: Davon is a 58-year-old male with past medical history of obesity, hypertension, hyperlipidemia, diabetes, sleep apnea, chronic kidney disease, CVA with left-sided weakness, sinus tachycardia who presents for follow-up. Today he reports he has been doing well since his last visit here 02/17/2023. He has not had any hospitalizations or ER trips and no changes to his health. He denies chest discomfort at rest or with activity. He has no concerning shortness of breath, PND, orthopnea or edema. He will feel heart palpitations especially when he is walking. No presyncope, syncope, falls. He uses 2 crutches to ambulate with. He has braces on each wrist. His SACK SEWER MACHINE is present. He reports compliance with his meds but states he has been taking carvedilol only once daily as that is how he thought it was supposed to be. [facility] Medical History Goiter Pre-op examination SOB (shortness of breath) Gastritis SUSY (acute kidney injury) Enteritis Epigastric pain Preoperative cardiovascular examination Physical deconditioning Colon cancer screening Right knee pain History of poliomyelitis Upper abdominal pain Benign skin lesion of cheek Pulmonary embolism Dysphagia Uninodular goiter (nontoxic) Chronic pain Type 2 diabetes mellitus with polyneuropathy H. 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 CHF (congestive heart failure) GERD (gastroesophageal reflux disease) Morbid obesity Mood disorder Nasal polyps Positive PPD Angina of effort ARTEM (obstructive sleep apnea) Hemiplegia affecting dominant side Asthma Other pulmonary embolism and infarction Left ventricular hypertrophy Syncope Type 2 diabetes mellitus with hyperglycemia, with long-term current use of insulin Hyperlipidemia LDL goal <70 Essential hypertension Surgical History History of right knee joint replacement History of excision of lesion (~09/09/23) History of carpal tunnel surgery History of esophagogastroduodenoscopy (EGD) History of cardiac catheterization Hx of knee surgery History of coronary artery stent placement Family History Father Stroke Brain cancer CVD (cardiovascular disease) Diabetes Mother Diabetes Social History Household Members: Significant Other Housing: Apartment Alcohol intake: never Patient Tobacco Use Status: Never used Tobacco Advance Directives Date on File: 11/08/20 service: No Review of Systems Const All systems reviewed & are unremarkable except as noted in HPI and below Denies weakness ENT Denies dizziness Card Denies chest pain, Denies chest pain with activity, Denies syncope, Reports rapid heart rate, Denies pedal edema, Denies edema, Denies leg edema, Denies lightheadedness, Reports palpitations, Denies dyspnea, Denies dyspnea on exertion and Denies orthopnea Resp Denies cough, Denies dyspnea and Denies dyspnea on exertion GI Denies hematochezia and Denies change in stool character Musc Details: braces on each wrist Reports abnormal gait (uses canes), Denies muscle cramps, Reports muscle weakness, Denies numbness, Denies radiating pain into limb and Denies tingling Neuro Reports abnormal gait (uses canes), Denies dizziness, Denies syncope, Denies numbness, Denies tingling and Denies weakness Endo Reports palpitations Physical Exam Vital Signs: Last Vital Signs Pulse 104 H 03/03/24 14:05 BP 132/80 03/03/24 14:05 BMI result Body Mass Index 40.1 Const General: cooperative, healthy appearing, comfortable and no acute distress Orientation/consciousness: patient oriented x3 Neck Neck: Yes normal visual inspection Resp Effort & Inspection: normal respiratory effort Auscultation: clear to auscultation bilaterally, no crackles, no rales, no rhonchi and no wheezes Cardio Rhythm: regular rhythm Heart sounds: S1 normal heart sound present, S2 normal heart sound present, no gallops, no murmurs and no rubs Neuro General: patient oriented x3 Extrem General: Yes normal to inspection Psych Appearance: grossly normal Mental Status: mental status grossly normal Speech and movement: Clear speech present Office Procedures EKG Details: Today, read by me, sinus tachycardia, T-wave abnormality lead 3 and AVF, rate 104, QTC 439 millisecond [id number], Complete Assessment & Plan Assessment & Plan (1) Sinus tachycardia: Code(s): R00.0 - Tachycardia, unspecified Category: Medical Plan: History of sinus tachycardia. Echocardiogram done 02/11/2023 showing EF 55-60%, grade 1 diastolic dysfunction. Holter monitor done 02/15/2023 showed sinus rhythm with average heart rate 91 29% of time greater than 100. He has been on carvedilol to help with heart rate control and blood pressure. His sinus tachycardia was thought to be related to deconditioning, autonomic dysfunction, inappropriate sinus tach and bronchodilator therapy. His EKG done today is showing sinus tachycardia, rate 104. He does feel heart palpitations at times, especially when walking. He has no clinical signs of heart failure. He has been taking carvedilol only once daily. Instructed him to take carvedilol 25 mg b.i.d. as previously ordered. He drinks 1 caffeinated beverage per day. Continue with good hydration, get an adequate rest. Continue with physical activity as tolerated. Cardiology follow-up in 1 year, sooner if needed. (2) Essential hypertension: Code(s): I10 - Essential (primary) hypertension Category: Medical Plan: Normal range at this time. No med changes made except for the correction in the carvedilol dose. (3) Obesity due to excess calories: Code(s): E66.09 - Other obesity due to excess calories Category: Medical Qualifiers: Obesity classification: adult class 3 (BMI >= 40) Serious obesity comorbidity presence: with serious comorbidity Body mass index: BMI 40.0-44.9 Qualified Code(s): E66.01 - Morbid (severe) obesity due to excess calories; Z68.41 - Body mass index [BMI]40.0-44.9, adult Plan: Morbid obesity. He would benefit greatly from weight loss. His activity is limited by his mobility issues. Weight loss may be challenging. 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 He does not have a known history of PAF. Plan Time spent on chart review, documentation, interview and assessment Coding Level of Care Code Est Pt Level 3 (13721) Complex EM visit Add On G2211 Diagnoses Sinus tachycardia R00.0 Essential hypertension I10 Class 3 severe obesity due to excess calories with serious comorbidity and body mass index (BMI) of 40.0 to 44.9 in adult E66.01; Z68.41 Obesity classification: adult class 3 (BMI >= 40) Serious obesity comorbidity presence: with serious comorbidity Body mass index: BMI 40.0-44.9 Chronic anticoagulation Z79.01 CPT Codes EKG - CPT: [id number], Complete ([id number]) Time Spent (min) 24
[2024-03-03 14:05] VITALS: BP 132/80; PULSE 104; BMI 40.1
--- OUTSIDE RECORDS SUMMARY | 2024-03-03 15:32 | XMS_ITS | Encounter Summary ---
Author Organization [employer] Address [address] [facility] [address] [place] [address] Care Team Providers Care Proofer Prepress Name Role Phone Toro Silva MD Primary Care Prov ider Reason for Visit * Reason Onset Date Comments c/b request 2022 Encounter Details Date Type Department Care Team ([facility] st Contact Info) Description [address] [facility] MED & PEDS [address] [place], [place] [phone] Toro Silva MD [address] [place] [address] c/b request Social History Tobacco Use Types Packs/Day Years Used Date Smoking Tobacco: Never Smokeless Tobacco: Never Alcohol Use Standard Drinks/Week Comments Never 0 (1 standard drink = 0.6 oz pur e alcohol) Depression Answer Date Recorded Patient Health Questionnaire-9 Score 0 07/01/2022 Depression Answer Date Recorded Patient Health Questionnaire-2 Score 0 07/01/2022 Sex and Gender Information Value Date Recorded Sex Assigned at Male 12/08/2021 10:18 AM EDT Legal Sex Male 10:18 AM EDT Gender Identity Male 12/08/2021 10:18 AM EDT Sexual Orientation Straight 12/08/2021 10 :18 AM EDT documented as of this encounter Miscellaneous Notes * Telephone Encounter - Carolyn Cha RN - 10/20/2022 2:54 PM EDT Please hold eliquis 48 hours before procedure and then restart 24 hours after procedure TC placed to pt to advice of PCP message to hold Xeralto 48 prior to colonoscopy and resume 24 after procedure, left a message for a call back. TC placed to [facility] Gastro no answer left a message for Joan on voice mail gave [facility] direct number for a call back TC placed to pt for a third time and another message was left for him to contact the [facility] nurses. Several messages also left at Gastro office with no call back will send to PCP as FYI. * Telephone Encounter - Carolyn Cha RN - 10/19/2022 11:24 AM EDT Tc from [place] with [facility] requesting a call in regards to pt upcoming colonoscopy appointment on 10/21 Please contact joan at [phone] TC returned to [place] and a message was left for a call back. Unsure what Gastro is calling however ptis on Xeralto and having a colonoscopy will send message to PCP to advice if medication needs to beheld Please hold eliquis 48 hours before procedure and then restart 24 hours after procedure TC placed to pt to advice of PCP message to hold Xeralto 48 prior to colonoscopy and resume 24 after procedure, left a message for a call back. TC placed to [facility] Gastro no answer left a message for Joan on voice mail gave [facility] direct number for a call back * Telephone Encounter - Gianna Antonio - 2022 10:37 AM EDT Tc from [place] with [facility] requesting a call in regards to pt upcoming colonoscopy appointment on 10/21 Please contact joan at [phone] documented in this encounter Plan of Treatment Not on file documented as of this encounter Visit Diagnoses Not on filedocumented in this encounter Additional Health Concerns Assessment Noted Time PHQ-9 Depression Total Score: 0 07/02/19 9:45 AM EDT documented as of this encounter Care Teams Proofer Prepress Relationship Specialty Start Date End Date Toro Silva MD [address] [place] [id number] PCP - General Internal Medicine 07/09/19 Grazyna Alvarado Knit Goods WasherDirector Of Elementary Education 08/06/23 documented as of this encounter
--- OUTSIDE RECORDS SUMMARY | 2024-03-03 15:32 | XMS_ITS | Encounter Summary ---
Author Organization [employer] Address [address] [place] [address] Care Team Providers Care Sr. Payroll Manager Name Role Phone Toro Silva MD Primary Care Prov ider Reason for Visit * Reason Comments Med Refill Encounter Details Date Type Department Care Team (Late st Contact Info) Description 02/22/2024 Refill [facility] MEDICINE [address] [place] [address] Toro Silva MD [address] [place], [place] [phone] Primary hypertension Social History Tobacco Use Types Packs/Day Years Used Date Smoking Tobacco: Never Smokeless Tobacco: Never Alcohol Use Standard Drinks/Week Comments Never 0 (1 standard drink = 0.6 oz pur e alcohol) Depression Answer Date Recorded Patient Health Questionnaire-9 Score 11 01/18/2023 Patient Health Questionnaire-9 Score 11 01/18/2023 Last PHQ-9: Questionnaire Data Not on file 1 03/21/2022 Housing Stability Answer Date Recorded What is your housing situation today? I have jame blas 01/10/[address] you li ve. Do you have problems with any of the following? None of the above 01/10/2024 Food Insecurity Answer Date Recorded Within the past 12 months, y ou worried that your food would run out before you got money to buy more: Never True 01/10/2024 Within the past 12 months,th e food you bought just didn't last and you didn't have enough money to get more: Never True 03/2023 Transportation Answer Date Recorded In the past 12 months, has l ack of transportation kept you from medical appts, meetings, work or from getting things needed for daily living? No 01/10/2024 Utilities Answer Date Recorded In the past 12 months, has t he electric, gas, oil or water company threatened to shut off services in your home? No 01/10/2024 Depression Answer Date Recorded Patient Health Questionnaire-2 Score 2 01/18/2023 Internet Access Answer Date Recorded Internet Access Q1 Yes 01/10/2024 Internet Access Q2 Not on file 01/10/2024 Sex and Gender Information Value Date Recorded Sex Assigned at Male 12/08/2021 10:18 AM EDT Legal Sex Male 10:18 AM EDT Gender Identity Male 12/08/2021 10:18 AM EDT Sexual Orientation Straight 12/08/2021 10 :18 AM EDT documented as of this encounter Plan of Treatment Not on file documented as of this encounter Visit Diagnoses Diagnosis Primary hypertension Unspecified essential hypertension documented in this encounter Additional Health Concerns Assessment Noted Time PHQ-9 Depression Total Score: 11 023 9:53 AM EST documented as of this encounter Care Teams Sr. Payroll Manager Relationship Specialty Start Date End Date Toro Silva MD [address] [place] [id number] PCP - General Internal Medicine 07/09/19 Grazyna Alvarado Marker MachinePolystyrene Bead Molder 08/06/23 documented as of this encounter
--- OUTSIDE RECORDS SUMMARY | 2024-03-03 15:32 | XMS_ITS | Encounter Summary ---
Author Organization [employer] Address [address] [place] [address] Care Team Providers Care Medical Office Administrator Name Role Phone Toro Silva MD Primary Care Prov ider Encounter Details Date Type Department Care Team (Late st Contact Info) Description 02/22/2024 Refill [facility] MEDICINE [address] [place] [address] Toro Silva MD [address] [place], [place] [phone] Primary hypertension Social History Tobacco Use Types [...] documented as of this encounter Care Teams Medical Office Administrator Relationship Specialty Start Date End Date Toro Silva MD [address] [place] [id number] PCP - General Internal Medicine 07/09/19 Grazyna Alvarado Shake FeederFund Accountant 08/06/23 documented as of this encounter
--- OUTSIDE RECORDS SUMMARY | 2024-03-03 15:32 | XMS_ITS | Encounter Summary ---
Author Organization [employer] Address [address] [place] [address] Care Team Providers Care Tool Shaper Setup Operator Name Role Phone Toro Silva MD Primary Care Prov ider Reason for Visit * Reason Comments Med Refill Encounter Details Date Type Department Care Team ([facility] st Contact Info) Description 02/21/2024 Refill [facility] CHC MED & PEDS [address] [place], [place] [phone] Toro Silva MD [address] [place] [address] Neuropathy Social History Tobacco Use Types Packs/Day Years [...] as of this encounter Visit Diagnoses Diagnosis Neuropathy Mononeuritis of unspecified site documented in this encounter Additional Health Concerns Assessment Noted Time PHQ-9 Depression Total Score: 11 023 9:53 AM EST documented as of this encounter Care Teams Tool Shaper Setup Operator Relationship Specialty Start Date End Date Toro Silva MD [address] [place] [id number] PCP - General Internal Medicine 07/09/19 Grazyna Alvarado Electric MotormanBalance Clerk 08/06/23 documented as of this encounter
--- OUTSIDE RECORDS SUMMARY | 2024-03-03 15:32 | XMS_ITS | Encounter Summary ---
Author Organization [employer] Address [address] [facility] [address] [place] [address] Care Team Providers Care Records Supervisor Name Role Phone Toro Silva MD Primary Care Prov ider Reason for Visit * Reason Comments Med Refill Encounter Details Date Type Department Care Team (Late st Contact Info) Description 10/16/2022 Refill [facility] MEDICINE [address] [place], [place] [phone] Toro Silva MD [address] [place], [place] [phone] Chronic pain syndrome Social History Tobacco Use Types Packs/Day Years [...] as of this encounter Visit Diagnoses Diagnosis Chronic pain syndrome documented in this encounter Additional Health Concerns Assessment Noted Time PHQ-9 Depression Total Score: 0 07/02/19 23 9:45 AM EDT documented as of this encounter Care Teams Records Supervisor Relationship Specialty Start Date End Date Toro Silva MD [address] [place] [address] PCP - General Internal Medicine 07/09/19 Grazyna Alvarado Tank Farm OperatorStrip Polisher 08/06/23 documented as of this encounter
--- OUTSIDE RECORDS SUMMARY | 2024-03-03 15:32 | XMS_ITS | Encounter Summary ---
Author Organization [employer] Address [address] [place] [address] Care Team Providers Care Senior Accounting Specialist Name Role Phone Toro Silva MD Primary Care Prov ider Reason for Visit * Reason Onset Date Comments PT-1 11/27/2022 Encounter Details Date Type Department Care Team ([facility] st Contact Info) Description 11/27/2022 Telephone [facility] MEDICINE [address] [place] [address] Toro Silva MD [address] [place] [address] PT-1 Social History Tobacco Use Types Packs/Day Years [...] encounter Miscellaneous Notes * Telephone Encounter - Екатерина Mckinney - 11/27/2022 10:46 AM EDT PT-1 submitted for patient. They will receive a letter of approval or denial in the mail. * Telephone Encounter - Maribel Carroll - 11/27/2022 10:20 AM EDT Tc from [facility] requesting a PT-1 , states they have an upcoming up. PT-1 Date: 12/01/22 Time: 1:30pm Visits: twice a month Facility: [place] [address] Wheel Chair: Electric wheel chair Neurophysiologist Needed: Yes documented in this encounter Plan of Treatment Not on file documented as of this encounter Visit Diagnoses Not on filedocumented in this encounter Additional Health Concerns Assessment Noted Time PHQ-9 Depression Total Score: 0 07/02/19 9:45 AM EDT documented as of this encounter Care Teams Senior Accounting Specialist Relationship Specialty Start Date End Date Toro Silva MD [address] [place] [id number] PCP - General Internal Medicine 07/09/19 Grazyna Alvarado Citrus PickerMarbleizer 08/06/23 documented as of this encounter
--- OUTSIDE RECORDS SUMMARY | 2024-03-03 15:32 | XMS_ITS | Encounter Summary ---
Author Organization [employer] Address [address] [facility] [address] [place] [address] Care Team Providers Care Personalized Living Manager Nurse Name Role Phone Toro Silva MD Primary Care Prov ider Reason for Visit * Reason Comments Med Refill Encounter Details Date Type Department Care Team (Late st Contact Info) Description 03/03/2022 Refill [facility] CHC MED & PEDS [address] [place] [address] Toro Silva MD [address] [place] [address] Chronic pain syndrome Social History Tobacco Use Types Packs/Day Years Used Date Smoking Tobacco: Never Alcohol Use Standard Drinks/Week Comments Never 0 (1 standard drink = 0.6 oz pur e alcohol) Sex and Gender Information Value Date Recorded Sex Assigned at Male 12/08/2021 10:18 AM EDT Legal Sex Male 10:18 AM EDT Gender Identity Male 12/08/2021 10:18 AM EDT Sexual Orientation Straight 12/08/2021 10 :18 AM EDT documented as of this encounter Plan of Treatment Not on file documented as of this encounter Visit Diagnoses Diagnosis Chronic pain syndrome documented in this encounter Care Teams Personalized Living Manager Nurse Relationship Specialty Start Date End Date Toro Silva MD [address] [place] [address] PCP - General Internal Medicine 07/09/19 Grazyna Alvarado Clinical Rehabilitation LiaisonProcess Helper 08/06/23 documented as of this encounter
--- OUTSIDE RECORDS SUMMARY | 2024-03-03 15:32 | XMS_ITS | Encounter Summary ---
Author Organization [employer] Address [address] [place] [address] Care Team Providers Care Court Liaison Name Role Phone Toro Silva MD Primary Care Prov ider Reason for Visit * Reason Onset Date Comments Durable Medical Equipment 12/20/2023 Encounter Details Date Type Department Care Team ([facility] st Contact Info) Description 12/20/2023 Telephone [facility] [address] [place] [address] Toro Silva MD [address] [place] [address] Durable Medical Equipment Social History Tobacco Use Types Packs/Day Years [...] housing situation today? I have jame blas 11/23/[address] you li ve. Do you have problems with any of the following? None of the above 11/23/2022 Food Insecurity Answer Date Recorded Within the past 12 months, y ou worried that your food would run out before you got money to buy more: Never True 11/23/2022 Within the past 12 months,th e food you bought just didn't last and you didn't have enough money to get more: Never True Transportation Answer Date Recorded In the past 12 months, has l ack of transportation kept you from medical appts, meetings, work or from getting things needed for daily living? No 11/23/2022 Utilities Answer Date Recorded In the past 12 months, has t he electric, gas, oil or water company threatened to shut off services in your home? No 11/23/2022 Depression Answer Date Recorded Patient Health Questionnaire-2 Score 2 01/18/2023 Sex and Gender Information Value Date Recorded Sex Assigned at Male 12/08/2021 10:18 AM EDT Legal Sex Male 10:18 AM EDT Gender Identity Male 12/08/2021 10:18 AM EDT Sexual Orientation Straight 12/08/2021 10 :18 AM EDT documented as of this encounter Miscellaneous Notes * Telephone Encounter - Maci Mccray LPN - 12/20/2023 11:50 AM EST Please review pt request below Tc from pt requesting a new back brace as the one he has is currently falling apart. * Telephone Encounter - Sharlene Mckinney - 12/20/2023 11:36 AM EST Tc from pt requesting a new back brace as the one he has is currently falling apart. documented in this encounter Plan of Treatment Not on file documented as of this encounter Visit Diagnoses Not on filedocumented in this encounter Additional Health Concerns Assessment Noted Time PHQ-9 Depression Total Score: 11 023 9:53 AM EST documented as of this encounter Care Teams Court Liaison Relationship Specialty Start Date End Date Toro Silva MD [address] [place] [id number] PCP - General Internal Medicine 07/09/19 Grazyna Alvarado Raisin Separator OperatorSupervisor [employer] 08/06/23 documented as of this encounter
--- OUTSIDE RECORDS SUMMARY | 2024-03-03 15:33 | XMS_ITS | Encounter Summary ---
Author Organization [employer] Address [address] [place] [address] Care Team Providers Care Learning And Development Officer Name Role Phone Toro Silva MD Primary Care Prov ider Encounter Details Date Type Department Care Team (Late st Contact Info) Description 05/22/2023 Orders Only [facility] [address] [place], [place] [phone] ProviderHarley MD Social History Tobacco Use Types Packs/Day Years [...] on file documented as of this encounter Procedures Procedure Name Priority Date/Time Associated Diagnosis Comments HM COLONOSCOPY Routine 11/07/2020 6:57 AM EDT documented in this encounter Results * Hm Colonoscopy (11/07/2020 6:57 AM EDT) Historical Provider HEALTH MAINTENANCE Final Result documented in this encounter Visit Diagnoses Not on filedocumented in this encounter Additional Health Concerns Assessment Noted Time PHQ-9 Depression Total Score: 11 023 9:53 AM EST documented as of this encounter Care Teams Learning And Development Officer Relationship Specialty Start Date End Date Toro Silva MD [address] [place] [phone] PCP - General Internal Medicine 07/09/19 Grazyna Alvarado Software Development AnalystBell Attendant 08/06/23 documented as of this encounter
--- OUTSIDE RECORDS SUMMARY | 2024-03-03 15:33 | XMS_ITS | Encounter Summary ---
Author Organization [employer] Address [address] [place] [address] Care Team Providers Care Pad Making Machine Operator Name Role Phone Toro Silva MD Primary Care Prov ider Reason for Visit * Reason Comments Med Refill Encounter Details Date Type Department Care Team ([facility] st Contact Info) Description 09/29/2023 Refill [facility] [address] [place], [place] [phone] Sophy Rubi MD [address] [place] [address] Neuropathy Social History Tobacco Use Types Packs/Day [...] documented as of this encounter Care Teams Pad Making Machine Operator Relationship Specialty Start Date End Date Toro Silva MD [address] [place] [phone] PCP - General Internal Medicine 07/09/19 Grazyna Alvarado Museum ArchivistPublic Health Dietitian 08/06/23 documented as of this encounter
--- OUTSIDE RECORDS SUMMARY | 2024-03-03 15:33 | XMS_ITS | Encounter Summary ---
Author Organization [employer] Address [address] [place] [address] Care Team Providers Care Instrument Technician Name Role Phone Toro Silva MD Primary Care Prov ider Encounter Details Date Type Department Care Team (Late st Contact Info) Description 03/05/2022 Orders Only [facility] [address] [place] [address] Toro Silva MD [address] [place], [place] [phone] Disorder of vision (Primary Dx) Social History Tobacco Use Types Packs/Day Years [...] Procedure Name Priority Date/Time Associated Diagnosis Comments HEMATOXYLIN AND EOSIN STAIN Routine 10/21/2022 1:32 PM EDT Disorder of vision GLUCOSE, WHOLE BLOOD Routine 10/21/2022 11:49 AM EDT Disorder of vision documented in this encounter Results * Hematoxylin and Eosin Stain (10/21/2022 1:32 PM EDT) 10/21/2022 1:32 PM EDT 10/21/2022 3:10 PM EDT Narrative [facility] - 10/22/2022 2:46 PM EDT ----- ------- Name: Davon Gonzalez ? Age/Sex: 57/M ? : 1965 Unit#: [id number] ?? Attend Dr: Valente Drake MD ?Re10/21/22 ?Status: DEP SDC ? Location: HO.SSS ?Disch: ? ----- ------- SPEC : [id number] ? RECD: 10/21/22-9420 ? STATUS: ??SOUT ? REQ NUM: [id number] ? ARLYN: 10/21/22-1331 ? SUBM DR: Valente Drake MD ? ENTERED: ??10/21/22-0 ?SP TYPE: Surgical ? OTHR DR: Toro Silva MD ORDERED: ??HE Stain/6, Gross Micro L4/2 ? Diagnosis ?? A. ??Colon, cecal polyp: ??Colonic mucosa with no specific change; no adenomatous dysplasia ?? seen. ? B. ??Colon, transverse, polyp: ??Tubular adenoma, completely excised; negative for high- ?? grade dysplasia and carcinoma. ?Clinical History Pre-Op Dx: ??Anemia Post-Op Dx: Colon polyps, hemorrhoids, poor prep ?Microscopic Description Microscopic sections reviewed. ? Material Received ?? A. Polyp cecum ?? B. Polyp transverse colon ? Gross Description Received in 2 parts. Part A: ??Received in formalin labeled ?polyp cecum? is a 1.2 x 0.9 x 0.1 cm thin and delicate rectangular fragment of sequeira mucosa which is sectioned and entirely submitted in a single cassette labeled A. Part B: ??Received in formalin labeled ?polyp transverse colon? along with copious debris is a 0.45 cm in greatest dimension semitranslucent, soft, sequeira-pink papular tissue fragment which is submitted in toto in a single labeled B. ??The debris is retained in formalin. CEDS Copies To: ?? Toro Silva MD ?? [address] ?? [place] [address] ?? [phone] ? CONTINUED ON NEXT PAGE ----- ------- Name: Davon Gonzalez ? Age/Sex: 57/M ? : 1965 Unit#: [id number] ?? Attend Dr: Valente Drake MD ?Re10/21/22 ?Status: DEP SDC ? Location: HO.SSS ?Disch: ? ----- ------- SPEC : [id number] ? RECD: 10/21/22-1509 ? STATUS: ??SOUT ? REQ NUM: [id number] ? ARLYN: 10/21/22-1331 ? SUBM DR: Valente Drake MD ? ENTERED: ??10/21/22-1509 ?SP TYPE: Surgical ? OTHR DR: Toro Silva MD ORDERED: ??HE Stain/6, Gross Micro L4/2 ? Copies To: ??(Continued) ?? Valente Drake MD ?? [address] [facility] ?? [place] [address] ?? [phone] ----- ------- Signed (signature on file) Jennifer Frederick 10/22/22 1446 ? ----- ------- ? END OF REPORT ? us [facility] External Provider LAB BLO OD ORDERABLES Final Result [facility] [address] [facility] [place] [address] [phone] * (ABNORMAL) Glucose, Whole Blood (10/21/2022 11:49 AM EDT) Glucose, Whole Blood 143(H) 60 - 115 mg/dL [facility] Comment:METER #: [id number] 10/21/2022 11:4 9 AM EDT 10/21/2022 11:52 AM EDT us [facility] External Provider LAB BLO OD ORDERABLES Final Result [facility] [address] [place] [address] [phone] documented in this encounter Visit Diagnoses Diagnosis Disorder of vision- Primary documented in this encounter Care Teams Instrument Technician Relationship Specialty Start Date End Date Toro iSlva MD [address] [place] [phone] PCP - General Internal Medicine 07/09/19 Grazyna Alvarado Loan ReviewerEnvironmental Compliance Technician 08/06/23 documented as of this encounter
--- OUTSIDE RECORDS SUMMARY | 2024-03-03 15:33 | XMS_ITS | Clinical Summary ---
Author Organization [email or web address] Address [address] [facility] [address] [place] [address] Care Team Providers Care Quality Control Auditor Name Role Phone Toro Silva MD Primary Care Prov ider Allergies Active Allergy Reactions Criticality Noted Date Comments Apple Juice 06/10/2015 Egg-Derived Products 05/03/2019 Influenza Virus Vaccine 08/20/2022 Other reaction(s): swelling Lisinopril 05/03/2019 Other reaction(s): mild unknown Nifedipine 05/03/2019 Penicillins Rash Low 05/26/2011 Shellfish-Derived Products 0 Other reaction(s): swollen throat Medications acetaminophen (Tylenol 8 Hour) 650 MG ER tablet Take 2 tablets by mouth every 8 (eight) hours. Active albuterol (ProAir HFA) 108 (90 Base) MCG/ACT inhaler Inhale 2 puffs every 4 (four) hours. Active amLODIPine (Norvasc) 10 MG tablet Take 1 tablet by mouth in the morning. Active ketotifen (Zaditor) 0.025 % ophthalmic solution instill 1 drop by ophthalmic route 2 times every day as needed for allergies Active meclizine (Antivert) 25 MG tablet Take 1 tablet by mouth every 8 (eight) hours. Active naloxone (Narcan) 4 mg/0.1 mL nasal spray Administer 0.1 mL into affected nostril(s). Active pantoprazole (ProtoNix) 20 MG EC tablet Take 2 tablets by mouth in the morning. 06/13/2 022 Active plecanatide (Trulance) tablet tablet Take 1 tablet by mouth in the morning. Active SUMAtriptan (Imitrex) 25 MG tablet Take 1 tablet by mouth. Active fluticasone (Flonase) 50 MCG/ACT nasal sprayIndications: Nasal polyp 1 spray each nostril once a day Strength: 50 MCG/ACT 16 g 2 022 Active Loratadine (Claritin) 10 MG capsuleIndication s:Chronic rhinitis Take 1 capsule by mouth in the morning. 90 capsule 2 023 Active albuterol (2.5 MG/3ML) 0.083% nebulizer solution Take 3 mL by nebulization every 8 (eight) hours. 75 mL 3 023 Active Calcium Antacid Extra Strength 750 MG chewable tablet Chew 750 mg 2 times daily. 023 Active loratadine (Claritin) 10 MG tablet Take 10 mg by mouth in the morning. Active pantoprazole (ProtoNix) 40 MG EC tablet TAKE 1 TABLET BY MOUTH TWICE DAILY IN THE MORNING AND IN THE EVENING Active chlorthalidone (Hygroton) 25 MG tabletIndications :Primary hypertension TAKE 1 TABLET BY MOUTH EVERY MORNING 90 tablet 3 Active Flovent HFA 110 MCG/ACT inhaler INHALE 1 PUFF BY MOUTH TWICE DAILY. RINSE MOUTH AFTER USING. 12 g 5 Active QUEtiapine XR (SEROquel XR) 300 MG 24 hr tablet TAKE 1 TABLET BY MOUTH AT BEDTIME 30 tablet 5 Active prazosin (Minipress) 2 MG capsule TAKE 1 CAPSULE BY MOUTH TWICE DAILY IN THE MORNING AND AT BEDTIME 180 capsule 1 Active DULoxetine (Cymbalta) [address] capsule TAKE 1 CAPSULE BY MOUTH EVERY MORNING 90 capsule 1 Active traZODone (Desyrel) 150 MG tablet TAKE 1 TO 2 TABLETS BY MOUTH AT BEDTIME NEEDED FOR SLEEP 180 tablet 1 024 Active cetirizine (ZyrTEC) 10 MG tablet TAKE 1 TABLET BY MOUTH EVERY MORNING 90 tablet 3 024 Active empagliflozin (Jardiance) 25 MG Take 1 tablet (25 mg) by mouth Once per day. 90 tablet 3 024 2024 Active TRUEplus Lancets 33G [facility] TEST BLOOD SUGAR FOUR TIMES DAILY 100 each 11 Active Alcohol Swabs (Alcohol Prep) 70 % pads USE DIRECTED FOUR TIMES DAILY 100 each 11 Active Xarelto 2.5 MG tabletIndications :Pulmonary embolism and infarction ([facility]/HCC) TAKE 1 TABLET BY MOUTH TWICE DAILY 60 tablet 3 Active topiramate 50 MG tabletIndications :Chronic migraine w/o aura w/o status migrainosus, not intractable TAKE 1 TABLET BY MOUTH AT BEDTIME 30 tablet 7 024 2024 Active gabapentin (Neurontin) 100 MG capsuleIndication s:Neuropathy TAKE 1 CAPSULE BY MOUTH THREE TIMES DAILY IN THE MORNING, EVENING, AND BEDTIME 90 capsule Active topiramate 50 MG tabletIndications :Chronic migraine w/o aura w/o status migrainosus, not intractable Take 1 tablet by mouth at bedtime. 30 tablet 7 024 2024 Active FeroSul 325 (65 Fe) MG tabletIndications :Iron deficiency anemia secondary to inadequate dietary iron intake TAKE 1 TABLET BY MOUTH EVERY EVENING 90 tablet Active FREESTYLE LITE test stripIndications: Type 2 diabetes mellitus with stage 3b chronic kidney disease, with long-term current use of insulin ([facility]) TEST BLOOD SUGAR FOUR TIMES DAILY 100 strip 11 Active lisinopril 40 MG tabletIndications :Primary hypertension TAKE 1 TABLET BY MOUTH EVERY MORNING 90 tablet 3 Active insulin glargine (Lantus SoloStar) 100 UNIT/ML penIndications: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 ([facility]) Inject 35 Units under the skin 2 times daily. 15 mL 2 024 2024 Active Dulaglutide 4.5 MG/0.5ML solution auto-injector Inject 0.5 mL (4.5 mg) under the skin 1 (one) time per week. 3 mL 3 024 Active atorvastatin (Lipitor) 80 MG tabletIndications :Mixed hyperlipidemia TAKE 1 TABLET BY MOUTH AT BEDTIME 90 tablet 1 025 Active gabapentin (Neurontin) 100 MG capsuleIndication s:Neuropathy TAKE 1 CAPSULE BY MOUTH THREE TIMES DAILY IN THE MORNING, EVENING, AND BEDTIME 90 capsule 025 Active carvedilol (Coreg) 25 MG tabletIndications :Primary hypertension Take 1 tablet (25 mg) by mouth with breakfast and with evening meal. 180 tablet 1 025 Active atorvastatin (Lipitor) 80 MG tabletIndications :Mixed hyperlipidemia TAKE 1 TABLET BY MOUTH AT BEDTIME 90 tablet 1 024 2024 Discontinued carvedilol (Coreg) 25 MG tabletIndications :Primary hypertension TAKE 1 TABLET BY MOUTH TWICE DAILY IN THE MORNING AND IN THE EVENING 180 tablet 1 024 2024 Discontinued(R eorder (will not trigger notification to Pharmacy)) gabapentin (Neurontin) 100 MG capsuleIndication s:Neuropathy TAKE 1 CAPSULE BY MOUTH THREE TIMES DAILY IN THE MORNING, EVENING, AND BEDTIME 90 capsule 024 2024 Discontinued Active Problems Problem Noted Date Diagnosed Date Iron deficiency anemia 04/07/2023 Assessment & Plan (01/20/2024 1:07 PM EST): New labs ordered for guidance of therapy Acute right ankle pain 12/04/2022 Assessment & Plan (12/04/2022 4:09 PM EDT): Patient that presented visit with complaints of acute R ankle pain will be sent for X-Rays. -Will be prescribed Oxycodone to control the pain. Advised patient to notify office if there're no improvements, will be considering referral to Physical Therapy. -Referred that Orthopaedic Surgery. Follow up in 1 month. Foot trauma, right, initial encounter 11/02/2022 Assessment & Plan (11/02/2022 12:11 PM EDT): Ro metatarsal fracture, order Xrays Elevate leg, use ice to affected area bid x 10min Take tylenol _ tramadol for first 3-5 days, then tylenol Walk with crutches only, no weight bearing on right foot. Order right leg US to ro DVT due to leg edema, hx recurrent DVT Leg edema, right 11/02/2022 Assessment & Plan (11/02/2022 12:12 PM EDT): Most likely sec to recent trauma, ro DVT due to hx recurrent DVT and limited mobility. Chronic pain 10/22/2022 Assessment & Plan (10/22/2022 12:54 PM EDT): Patient has been off oxycodone for almost 2 months, he agree to stop it for now, will follow up with neurology next month Seasonal allergies 07/01/2022 Assessment & Plan (07/01/2022 10:47 AM EDT): Will prescribe cetirizine, continue flonase, avoid prolonged exposure to pollen, call back if not improving Colon cancer screening 04/29/2022 Assessment & Plan (04/29/2022 2:06 PM EDT): Patient arenas the pre procedure bowel prep at home, pending appointment for procedure Blindness and low vision 12/29/2021 Carpal tunnel syndrome 12/29/2021 ESR raised 12/29/2021 Mild intermittent asthma 12/29/2021 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 Chronic congestive heart failure 01/07/2018 Assessment & Plan (08/04/2022 2:39 PM EDT): Followed by cardiology Mantoloking filter in place 01/07/2018 Hemiparesis affecting left s jose alfredo as late effect of cerebrovascular accident 01/07/2018 History of coronary artery stent placement 01/07 Left ventricular hypertrophy 01/07/2018 Recurrent sinusitis 01/07/2018 Prurigo nodularis 07/30/2017 Hyperlipidemia 05/18/2017 Assessment & Plan (08/06/2023 2:44 PM EDT): Not at target, he refers taking atorvastatin 80mg daily, will refer to endocrinology for reccomendations Assessment & Plan (06/17/2023 12:27 AM EDT): On atorvastatin 80mg LDL from 05/2022 was 87, encouraged weight loss, lifestyle modifications Assessment & Plan (10/22/2022 12:43 PM EDT): On statin therapy, will order new labs for guidance of therapy Continuous opioid dependence 04/06/2017 Nasal polyp 04/06/2017 Cerebrovascular accident 04/06/2017 Chest pain 04/06/2017 CKD stage 3 due to type 2 diabetes mellitus 03/12 Assessment & Plan (02/24/2024 12:12 AM EST): Not at target, encouraged to keep low carb/no sugar diet, will consider increasing lantus on next appointment based on daily average results, denied episode of hypoglycemia Assessment & Plan (01/20/2024 1:07 PM EST): Followed by nephrology, renal function has remained stable Assessment & Plan (06/17/2023 12:26 AM EDT): Followed by nephrology, contineu Ortiz inhibitor/trulcity], last A1c >7.0%, encouraged adequate blood pressure and glucose control Disorder of vision 04/06/2017 Gastroesophageal reflux disease without esophagi tis 04/06/2017 Hemiparesis 04/06/2017 Primary hypertension 04/06/2017 Assessment & Plan (01/20/2024 1:05 PM EST): Controlled, continue low sodium diet, keep current medication, keep bp log, targer <130/80 Assessment & Plan (11/29/2023 9:58 AM EDT): Borderline, but he brought this month bp log results and at home has remained >80% below 130/80, no changes will be made, encouraged to keep low sodium diet, keep bp log, follow up in 3 months Assessment & Plan (08/06/2023 2:36 PM EDT): Controlled, continue current therapy, reinforced low sodium diet and exercise as tolerated Assessment & Plan (06/17/2023 12:23 AM EDT): Elevated on today evaluation, refers at home maintains <130/80, no changes will be made, continue low sodium diet and exercise as tolerated Assessment & Plan (04/07/2023 1:45 PM EST): Controlled, refers not going above 130/80, reinforced low sodium diet and exercise as tolerated, follow up in 4 months Assessment & Plan (12/04/2022 4:07 PM EDT): Uncontrolled: patient that presented visit with elevated blood pressure readings of 156/90 mmHg., had BP retaken at the time of visit with readings of 138/80 mmHg. Advised to keep monitoring at home. Assessment & Plan (10/22/2022 12:41 PM EDT): Refers this morning was 124/77, at home constantly is at target as per patient, told to continue monitoring target should be <130/80. Reinforced low sodium diet and exercise as tolerated. Assessment & Plan (08/04/2022 2:39 PM EDT): Controlled, reinforced low sodium diet and exercise as tolerated, target <130/80, following nephrology and cardiology Assessment & Plan (04/29/2022 2:05 PM EDT): Controlled, reinforced low sodium diet, continue current treatment, Assessment & Plan (01/26/2022 3:14 PM EST): Improved, reinforced low sodium diet and exercise as tolerated, no changes will be made, will follow up in 3 months Mood disorder 04/06/2017 Morbid obesity 04/06/2017 Obstructive sleep apnea syndrome 04/06/2017 Positive PPD 04/06/2017 Pulmonary embolism and infarction 04/06/2017 Status post bilateral knee replacements 04/06/19 18 Wheelchair dependence 04/06/2017 Type 2 diabetes mellitus 04/06/2017 Assessment & Plan (01/20/2024 1:06 PM EST): Split lantus and increase dose to 35 BID, increase trulicity to 4.5MG, continue rest of medications, target A1c <7.0%. Encouraged low carb/no sugar diet, follow up in 3 months Assessment & Plan (11/29/2023 9:59 AM EDT): Not at target, will increase trulicity to 4.5mg, continue rest of treatment, encouraged low carb/no sugar diet, follow up in 1 month Assessment & Plan (08/06/2023 2:41 PM EDT): Controlled, last A1c from 05/2023 was 6.9, continue current therapy, reinforced low carb/no sugar diet Eye exam pending to be done at [facility] Assessment & Plan (04/07/2023 1:46 PM EST): On trulicity and lantus, new labs will be ordered for guidance of therapy Assessment & Plan (11/02/2022 12:11 PM EDT): LAURA simpson PCP Assessment & Plan (10/22/2022 12:42 PM EDT): Will order new labs for guidance, last a1c<7.0%, will call with results, continue same treatment Assessment & Plan (08/04/2022 2:41 PM EDT): Last a1c was below 7.0% from april, results have been ranging from 110-150's, continue lantus 10 units and trulicity 3mg, no changes will be made Eye exam done Assessment & Plan (04/29/2022 2:06 PM EDT): Controlled, a1c 6.7%, continue trulicity/lantus, follow up endocrinology Encounters Date Type Department Care Team Description 02/22/2024 Refill [facility] [address] [place] [address] Toro Silva MD Primary hypertension 02/22/2024 Refill [facility] [address] [place] [address] Toro Silva MD Primary hypertension 02/21/2024 Refill [facility] [address] [place], [place] [phone] Toro Silva MD Neuropathy 02/10/2024 Refill [facility] [address] [place] [address] Toro Silva MD Mixed hyperlipidemia 01/20/2024 10:45 AM EST Office Visit [facility] [address] [place] [address] Toro Silva MD Other iron deficiency anemia (Primary Dx); Type 2 diabetes mellitus with stage 3b chronic kidney disease, with long-term current use of insulin (CMS/HCC); CKD stage 3 due to type 2 diabetes mellitus (CMS/HCC); Primary hypertension 01/20/2024 Travel 01/20/2024 Refill [facility] [address] [place] [address] Toro Silva MD Primary hypertension; Neuropathy 01/17/2024 Telephone [facility] [address] [place] [address] Toro Silva MD PT-1 01/10/2024 Patient Outreach [facility] [address] [place] [address] Toro Silva MD Pre-visit Planning (SDOH negative, Tobacco screening negative.) 01/08/2024 Refill [facility] [address] [place] [address] Toro Silva MD Type 2 diabetes mellitus with stage 3b chronic kidney disease, with long-term current use of insulin (CMS/HCC) 12/31/2023 11:15 AM EST Telemedicine [facility] [address] [place] [address] Toro Silva MD Type 2 diabetes mellitus with stage 3b chronic kidney disease, with long-term current use of insulin (CMS/HCC) (Primary Dx); CKD stage 3 due to type 2 diabetes mellitus (CMS/HCC) 12/31/2023 Travel 12/30/2023 Telephone [facility] [address] [place] [address] Toro Silva MD No Show 12/30/2023 Telephone [facility] [address] [place] [address] Toro Silva MD 12/30/2023 Travel 12/21/2023 Refill [facility] [address] [place] [address] Toro Silva MD Iron deficiency anemia secondary to inadequate dietary iron intake 12/20/2023 Telephone [facility] [address] [place] [address] Toro Silva MD Durable Medical Equipment 12/15/2023 Orders Only GENERIC EXTERNAL DATA DEPARTMENT Provider, Generic External Data 12/02/2023 Travel from Last 3 Months Immunizations Name Administration Dates Next Due Hep B, adult 02/11/2011 Moderna Covid-19 Vaccine 12+ 07/31/2021, 02/19/2021,06/04/2020,05/08/19 21 Pneumococcal Polysaccharide PPSV23 02/04/2006 Tdap 12/21/2018 Zoster, Recombinant 02/20/2019,12/21/2018 Family History Medical History Relation Name Comments Cancer Neg Hx Social History Tobacco Use Types Packs/Day Years Used Date Smoking Tobacco: Never Smokeless Tobacco: Never Tobacco Cessation:Counseling Given: Not Answered Alcohol Use Standard Drinks/Week Comments Never 0 [...] Orientation Straight 12/08/2021 10 :18 AM EDT Last Filed Vital Signs Vital Sign Reading Time Taken Comments Blood Pressure 136/80 01/20/2024 11:06 AM EST Pulse 100 01/20/2024 11:06 AM EST Temperature 37.1 ??C (98.7 ??F) 01/20/2024 11:[address] Respiratory Rate 20 01/20/2024 11:06 AM EST Oxygen Saturation 98% 01/20/2024 11:06 AM EST Inhaled Oxygen Concentration - - Weight 99.8 kg (220 lb) 01/20/2024 11:06 AM EST Height 162.6 cm (5' 4 ) 01/20/2024 11:06 AM EST Body Mass Index 37.76 01/20/2024 11:06 AM EST Plan of Treatment Health Maintenance Due Date Last Done Comments CT Colonography 1963 FIT DNA/Cologuard 1963 FIT 1963 FOBT 1963 Sigmoidoscopy 1963 Alcohol/Substance Use Screening 1975 Pneumococcal Vaccine: Pediatrics (0 to 5 Years) and At-Risk Patients (6 to 64 Years) (2 of 2 - PCV) 04/17/2008 04/18/2007, 02/04/2006 Hepatitis B Vaccines (2 of 3 - 19+ 3-dose series) 03/11/2011 02/11/2011 Depression Monitoring (PHQ-9) 07/20/2023 01/18/2023, 01/18/2023 Eye Exam 08/01/2023 07/31/2022, 07/10, 07/31/2022, Additional history exists COVID-19 Vaccine ( season) 2023 07/31/2021, 02/19/2021, 06/04/2020, Additional history exists Influenza Vaccine (#1) 2023 04/18/2007 RSV Patients and Patients Aged 60 years or older (1 - Risk 60-74 years 1-dose series) 2023 Colonoscopy 11/08/2023 11/07/2020 Colorectal Cancer Screening 11/08/2023 Depression Screening 01/19/2024 01/18/2023, 01/19/20 Diabetes: Hemoglobin A1C 03/16/2024 024, 11/29/2023, 05/14/2023, Additional history exists Tobacco Screening 11/28/2024 11/29/2023 Lipid Panel 12/14/2024 12/15/2023, 04/0 06/2023, 05/11/2022, Additional history exists SDOH Screening 01/09/2025 01/10/2024 Diabetes: Foot Exam 01/19/2025 01/20/2024, 01/20/2024, 01/20/2024, Additional history exists DTaP/Tdap/Td Vaccines (2 - Td or Tdap) 12/21/2028 12/21/2018 Zoster Vaccines Completed 02/20/2019, 12/21/2018 HIV Screening Completed 05/11/2022, 02/20/2019 Hepatitis C Screening Completed 05/11/2022, 020 HIB Vaccines Aged Out No longer eligi ble based on patient's age to complete this topic HPV Vaccines Aged Out No longer eligi ble based on patient's age to complete this topic Hepatitis A Vaccines Aged Out No long er eligible based on patient's age to complete this topic IPV Vaccines Aged Out No longer eligi ble based on patient's age to complete this topic Meningococcal Vaccine Aged Out No vy alan eligible based on patient's age to complete this topic RSV under 20 months Aged Out No longe r eligible based on patient's age to complete this topic Rotavirus Vaccines Aged Out No longer eligible based on patient's age to complete this topic Procedures Procedure Name Priority Date/Time Associated Diagnosis Comments POCT GLUCOSE Routine 01/20/2024 11:08 AM EST Type 2 diabetes mellitus with stage 3b chronic kidney disease, with long-term current use of insulin (CMS/HCC) HEMOGLOBIN A1C Routine 12/15/2023 10:01 AM EST LIPID PANEL, STANDARD Routine 12/15/2023 10:01 AM EST Type 2 diabetes mellitus with stage 3b chronic kidney disease, with long-term current use of insulin (CMS/HCC) COMPREHENSIVE METABOLIC PANEL Routine 12/15/2023 10:01 AM EST Type 2 diabetes mellitus with stage 3b chronic kidney disease, with long-term current use of insulin (CMS/HCC) HEPATITIS C AB W/REFL TO HCV RNA, QN, PCR Routine 05/11/2022 9:42 AM EDT Type 2 diabetes mellitus with stage 3a chronic kidney disease, without long-term current use of insulin (CMS/HCC) HIV 1 RNA, QN PCR W/RFL MAXIMINO (RTI,PI,INTEGRASE) Routine 05/11/2022 9:42 AM EDT Type 2 diabetes mellitus with stage 3a chronic kidney disease, without long-term current use of insulin (CMS/HCC) HM COLONOSCOPY Routine 11/07/2020 6:57 AM EDT from Last 3 Months or Most Recently Relevant to Health Maintenance Results * POCT Glucose (01/20/2024 11:08 AM EST) Glucose Blood, POC 151 60 - 200 mg/dL QC Media Lot # [id number] Lot# Expiration Date Blood Capillary blood specimen / Unknown 01/20/2024 11:08 AM EST Toro Perez MD POINT OF CARE TEST ENTER/EDIT ORDERABLES Final Result * (ABNORMAL) Hemoglobin A1c (12/15/2023 10:01 AM EST) Hemoglobin A1c 7.4(H) <6.0 % [facility] Comment:Hemoglobin A1C Refer ence Range Adults: 4.8 - 6.0 % Non diabetic: < 6.0 % Goal: < 7.0 %Additional Action Suggested: > 8.0 %Note: Hemoglobin A1c results are invalid for patients with abnormal amounts of HbF. Blood transfusions may impact the HbA1c concentration in the patient sample. Estimated Average Glucose 166 mg/dL [facility] Comment:eAG = Estimated ave rage glucose which is %A1C expressed asaverage glucose, using the formula of the [id number] Glucose study (ADAG), Diabetes Care, Vol.31,#8,Sep. 2007 12/15/2023 10:0 1 AM EST 12/15/2023 11:30 AM EST us Generic External Data Provider LAB BLOOD ORDERAB LES Final Result [facility] [address] [place] [phone] * (ABNORMAL) Lipid Panel, Standard (12/15/2023 10:01 AM EST) Triglycerides 141 <150 mg/dL [facility] Comment:Desirable Triglyceri de: less than 150 mg/dLBorderline High Triglyceride 150-199 mg/dLHigh Triglyceride: 200-499 mg/dLVery High Triglyceride: greater than or equal to 5OO mg/dL Cholesterol 106 <200 mg/dL [facility] Comment:Desirable Cholestero l: less than 200 mg/dLBorderline High Cholesterol: 200-239 mg/dLHigh Cholesterol: greater than 239 mg/dL LDL Cholesterol Calculated 45 <100 mg/dL [facility] Comment:Desirable LDL: less than 100 mg/dLNear Optimal/Above Optimal LDL: 110- 129 mg/dLBorderline High LDL: 130-159 mg/dLHigh LDL: 160-189 mg/dLVery High LDL: greater than or equal to 190 mg/dL HDL Cholesterol 33(L) >40 mg/dL [facility] Comment:Desirable HDL: great er than 40 mg/dL Note: This HDL assay may give artificially low results in patients with liver disease. Blood Venous blood specimen / Unknown 12/15/2023 10:01 AM EST 12/15/2023 11:32 AM EST us Toro Perez MD LAB BLOOD ORDERABL ES Final Result [facility] [address] [place] [phone] * (ABNORMAL) Comprehensive Metabolic Panel (12/15/2023 10:01 AM EST) Sodium 143 135 - 145 mmol/L [facility] Potassium 4.4 3.3 - 5.1 mmol/L [facility] Comment:Slight Hemolysis.Int erpret result with caution. Chloride 107 96 - 108 mmol/L [facility] Carbon Dioxide 27 22 - 29 mmol/L [facility] Anion Gap 13 12 - 20 [facility] Urea Nitrogen (BUN) 31(H) 9 - 16 mg/dL [facility] Creatinine, Serum 1.83(H) 0.5 - 1.4 mg/dL [facility] Estimated Glomerular Filt Rate 38 [facility] Comment:NOTE: For -Am erican individuals, multiply the result by 1.210.Chronic Kidney Disease: Estimated GFR < 60 mL/min/1.50q2Ffcsjj Kidney Disease: Estimated GFR < 15 mL/min/1.73m2 Glucose 136(H) 60 - 115 mg/dL [facility] Calcium 9.7 8.4 - 10.2 mg/dL [facility] Bilirubin, Total 0.3 0.0 - 1.0 mg/dL [facility] Aspartate Amino Transferase 24 5 - 37 U/L [facility] Comment:Slight Hemolysis.Int erpret result with caution. Alanine Aminotransferase 16 0 - 40 U/L [facility] Total Protein 7.7 6.5 - 8.0 g/dL [facility] Albumin Level 4.0 3.5 - 5.0 g/dL [facility] Alkaline Phosphatase 88 39 - 117 U/L [facility] Blood Venous blood specimen / Unknown 12/15/2023 10:01 AM EST 12/15/2023 11:32 AM EST Toro Perez MD LAB BLOOD ORDERABL ES Final Result [facility] [address] [place] [phone] * HIV-1 RNA, Quantitative, Real-Time PCR with Reflex to Genotype (RTI, PI, Integrase) (05/11/2022 9:42 AM EDT) Pathologist [facility] HIV 1 RNA, QN PCR NOT DETECTED copies/mL [email or web address], HIV 1 RNA, QN PCR NOT DETECTED Log copies/mL [email or web address], Comment: REFERENCE RANGE: NOT DETECTED copies/mL ?NOT DETECTED ??Log copies/mL This test was performed using Real-Time Polymerase Chain Reaction. Reportable range is 20 to 10,000,000 copies/mL (1.30-7.00 Log copies/mL). 05/11/2022 9:42 AM EDT 05/11/2022 9:43 AM EDT Narrative [facility] - 05/14/2022 12:55 AM EDT FASTING:YES FASTING: YES Toro Perez MD LAB BLOOD ORDERABL ES Final Result Performing Organization Address City/[facility]/ZIP Co de Phone Number [address], [place] [address] [employer]/[place] [facility], [address] [place] [address] * Hepatitis C Antibody with Reflex to HCV, RNA, Quantitative, Real-Time PCR (05/11/2022 9:42 AM EDT) Pathologist [facility] Hepatitis C Antibody NON-REACT TAMERA NON-REACT TAMERA [employer] [place] Qwitet Index 0.08 <1.00 [employer] [place] [employer] Comment: HCV antibody was non-reactive. There is no laboratory evidence of HCV infection. In most cases, no further action is required. However, if recent HCV exposure is suspected, a test for HCV RNA (test code 98210) is suggested. For additional information please refer to http://education.[employer]/faq/QBM79d2 (This link is being provided for informational/ educational purposes only.) Blood Venous blood specimen / Unknown 05/11/2022 9:42 AM EDT 05/11/2022 9:43 AM EDT Narrative [facility] - 05/14/2022 12:55 AM EDT FASTING:YES FASTING: YES Toro Perez MD LAB BLOOD ORDERABL ES Final Result [facility] [address], [place] [address] [employer] [facility] [address] [place] [address] * Hm Colonoscopy (11/07/2020 6:57 AM EDT) Historical Provider HEALTH MAINTENANCE Final Result from Last 3 Months or Most Recently Relevant to Health Maintenance Insurance [facility] C3 * Guarantor: Davon Gonzalez Account Type Relation to Patient Date of Phone Billing Address Personal/Family Self [address] [place] [address] * Guarantor: Davon Gonzalez Account Type Relation to Patient Date of Phone Billing Address Personal/Family Self [address] [place] [address] Care Teams Quality Control Auditor Relationship Specialty Start Date End Date Toro Silva MD [address] [place] [address] PCP - General Internal Medicine 07/09/19 Grazyna Alvarado Emotional Support TeacherSpanish Moss Picker 08/06/23
--- OUTSIDE RECORDS SUMMARY | 2024-03-03 15:33 | XMS_ITS | Encounter Summary ---
Author Organization [employer] Address [address] [facility] 7t [place] [address] Care Team Providers Care Control Systems Designer Name Role Phone Toro Silva MD Primary Care Prov ider Encounter Details Date Type Department Care Team (Latest Contact Info) Description 04/21/2019 Abstract [facility] CONVERSIONS Dental, Provider, DDS Social History Tobacco Use Types Packs/Day Years Used Date Smoking Tobacco: Never Assessed Sex and Gender Information Value Date Recorded Sex Assigned at Male 12/08/2021 10:18 AM EDT Legal Sex Male 10:18 AM EDT Gender Identity Male 12/08/2021 10:18 AM EDT Sexual Orientation Straight 12/08/2021 10 :18 AM EDT documented as of this encounter Plan of Treatment Not on file documented as of this encounter Visit Diagnoses Not on filedocumented in this encounter Care Teams Control Systems Designer Relationship Specialty Start Date End Date Toro Silva MD [address] [place] [address] PCP - General Internal Medicine 07/09/19 Grazyna Alvarado Wind Operations ManagerEnergy Systems Laboratory Director 08/06/23 documented as of this encounter
--- OUTSIDE RECORDS SUMMARY | 2024-03-03 15:33 | XMS_ITS | Encounter Summary ---
Author Organization [employer] Address [address] [facility] [address] 7[address] [place] [address] Care Team Providers Care Down Filler Name Role Phone Toro Silva MD Primary Care Prov ider Reason for Visit * Reason Onset Date Comments PT-1 01/17/2024 Encounter Details Date Type Department Care Team ([facility] st Contact Info) Description 01/17/2024 Telephone [facility] MEDICINE [address] [place] [address] Toro Silva MD [address] [place] [address] PT-1 Social History Tobacco Use Types Packs/Day [...] * Telephone Encounter - Екатерина Mckinney - 01/17/2024 4:48 PM EST PT-1 submitted for patient. They will receive a letter of approval or denial in the mail. * Telephone Encounter - Calvin Cox - 01/17/2024 3:13 PM EST Patient calling requesting PT1 Home Address verified: Y/N: Yes Provider name or facility name: [facility] Escort needed: Y/N: Yes Do you have a wheelchair: Y/N: No If yes- Manual or electric: Visits: (1 x 3 months) documented in this encounter Plan of Treatment Not on file documented as of this encounter Visit Diagnoses Not on filedocumented in this encounter Additional Health Concerns Assessment Noted Time PHQ-9 Depression Total Score: 11 023 9:53 AM EST documented as of this encounter Care Teams Down Filler Relationship Specialty Start Date End Date Toro Silva MD [address] [place] [address] PCP - General Internal Medicine 07/09/19 Grazyna Alvarado Spindle SanderMachine Clipper 08/06/23 documented as of this encounter
--- OUTSIDE RECORDS SUMMARY | 2024-03-03 15:33 | XMS_ITS | Encounter Summary ---
Author Organization [employer] Address [address] [facility] [facility] [address] [facility] [address] [address] 7t [place] [address] Care Team Providers Care Food Safety Scientist Name Role Phone Toro Silva MD Primary Care Prov ider Reason for Visit * Reason Comments Med Refill Encounter Details Date Type Department Care Team (Late st Contact Info) Description 02/10/2024 Refill [facility] MEDICINE [address] [place] [address] Toro Silva MD [address] [place], [place] [phone] Mixed hyperlipidemia Social History Tobacco Use Types Packs/Day Years [...] as of this encounter Visit Diagnoses Diagnosis Mixed hyperlipidemia documented in this encounter Additional Health Concerns Assessment Noted Time PHQ-9 Depression Total Score: 11 023 9:53 AM EST documented as of this encounter Care Teams Food Safety Scientist Relationship Specialty Start Date End Date Toro Silva MD [address] [place] [address] PCP - General Internal Medicine 07/09/19 Grazyna Alvarado Transitional NurseDisc Pad Plate Filler 08/06/23 documented as of this encounter
--- OUTSIDE RECORDS SUMMARY | 2024-03-03 15:33 | XMS_ITS | Encounter Summary ---
Author Organization [employer] Address [address] [facility] 7t [place] [address] Care Team Providers Care Seismograph Chief Name Role Phone Toro Silva MD Primary Care Prov ider Reason for Visit * Reason Comments Med Refill Encounter Details Date Type Department Care Team (Late st Contact Info) Description 07/11/2022 Refill [facility] MEDICINE [address] [place], [place] [phone] Toro Silva MD [address] [place], [place] [phone] Chronic pain syndrome Social History Tobacco Use [...] documented as of this encounter Care Teams Seismograph Chief Relationship Specialty Start Date End Date Toor Silva MD [address] [place] [address] PCP - General Internal Medicine 07/09/19 Grazyna Alvarado Bowl TopperSolar Installer Technician 08/06/23 documented as of this encounter
--- OUTSIDE RECORDS SUMMARY | 2024-03-03 15:33 | XMS_ITS | Encounter Summary ---
Author Organization [employer] Address [address] 7[address] [place] [address] Care Team Providers Care Employment Director Name Role Phone Toro Silva MD Primary Care Prov ider Reason for Visit * Reason Onset Date Comments PT-1 09/09/2023 Encounter Details Date Type Department Care Team ([facility] st Contact Info) Description 09/09/2023 Telephone [facility] MEDICINE [address] [place], [place] [phone] Toro Silva MD [address] [place] [address] PT-1 Social History Tobacco Use Types Packs/Day [...] encounter Miscellaneous Notes * Telephone Encounter - Maribel Carroll - 09/09/2023 12:29 PM EDT Zahida with [facility] calling requesting PT1 Home Address verified: Y/N: Yes Provider name or facility name: [facility] Facility Address: [address] [place] [address] [place] [address] Escort needed: yes ( Data Specialist) Do you have a wheelchair: Y/N: Yes If yes- Manual or electric: electric Visits: 3 times a month Date: 09/17/23 Time: 2:45pm documented in this encounter Plan of Treatment Not on file documented as of this encounter Visit Diagnoses Not on filedocumented in this encounter Additional Health Concerns Assessment Noted Time PHQ-9 Depression Total Score: 11 023 9:53 AM EST documented as of this encounter Care Teams Employment Director Relationship Specialty Start Date End Date Toro Silva MD [address] [place] [address] PCP - General Internal Medicine 07/09/19 Grazyna Alvarado Beating Machine OperatorElectronic Equipment Repairmen 08/06/23 documented as of this encounter
--- OUTSIDE RECORDS SUMMARY | 2024-03-03 15:33 | XMS_ITS | Encounter Summary ---
Author Organization [employer] Address [address] 7[address] [place] [address] Care Team Providers Care Joint Supervisor Name Role Phone Toro Silva MD Primary Care Prov ider Reason for Visit * Reason Onset Date Comments Med Refill 08/12/2022 Encounter Details Date Type Department Care Team ([facility] st Contact Info) Description 08/12/2022 Telephone [facility] CH[facility] MED & PEDS [address] [place], [place] [phone] Toro Silva MD [address] [place] [address] Med Refill Social History Tobacco Use Types Packs/Day Years [...] Orientation Straight 12/08/2021 10 :18 AM EDT COVID-19 Exposure Response Date Recorded In the last 10 days, have yo u been in contact with someone who was confirmed or suspected to have Coronavirus/COVID-19? No / Unsure 07/31/2022 2:39 PM EDT documented as of this encounter Miscellaneous Notes * Telephone Encounter - Gianna Antonio - 08/12/2022 10:02 AM EDT Tc from pt requesting medication refill on oxyCODONE (Roxicodone) 5 MG immediate release tablet documented in this encounter Plan of Treatment Not on file documented as of this encounter Visit Diagnoses Not on filedocumented in this encounter Additional Health Concerns Assessment Noted Time PHQ-9 Depression Total Score: 0 07/02/19 23 9:45 AM EDT documented as of this encounter Care Teams Joint Supervisor Relationship Specialty Start Date End Date Toro Silva MD [address] [place] [address] PCP - General Internal Medicine 07/09/19 Grazyna Alvarado Molybdenum Steamer OperatorPiano Machine Operator 08/06/23 documented as of this encounter
--- OUTSIDE RECORDS SUMMARY | 2024-03-03 15:33 | XMS_ITS | Clinical Summary ---
Demographics Address [address] [place] [address] [address] [place] [address] Home Phone Home Phone Preferred Language es Marital Status Unknown Methodist Affiliation Unknown Race Unknown Ethnic Group Unknown Author Organization [facility], Address [address] [place] [address] [place] [address] Phone Care Team Providers Care Sail Finisher Hand Name Role Phone Toro Bravo Primary Care Provider Allergies Active Allergy Reactions Criticality Noted Date Comments Apple Juice 05/03/2019 Egg-Derived Products 05/03/2019 Lisinopril 05/03/2019 Nifedipine 05/03/2019 Penicillins 08/17/2019 Shellfish-Derived Products 0 Medications amLODIPine (NORVASC) 10 MG tablet Take 10 mg by mouth 0 Active atorvastatin (LIPITOR) 20 MG tablet Take 20 mg by mouth at bed time 0 Active carvedilol (COREG) 25 MG tablet TAKE 1 TABLET BY MOUTH TWICE DAILY IN THE MORNING AND IN THE EVENING WITH FOOD 0 Active chlorthalidone (HYGROTON) 25 MG tablet Take 12.5 mg by mouth every morning 0 Active DULoxetine (CYMBALTA) [address] capsule Take 60 mg by mouth 0 Active furosemide (LASIX) 20 MG tablet Take 20 mg by mouth 0 Active Lantus SoloStar 100 UNIT/ML injection INJECT 50 UNITS SUBCUTANEOUSLY EVERY MORNING AND 50 UNITS SUBCUTANEOUSLY EVERY EVENING 0 Active HumaLOG KWIKPEN 100 UNIT/ML solution pen-injector INJECT 30 UNITS SUBCUTANEOUSLY BEFORE BREAKFAST, 30 UNITS BEFORE LUNCH, AND 30 UNITS BEFORE SUPPER 0 Active lisinopril (PRINIVIL,ZEST RIL) 10 MG tablet Take 10 mg by mouth 0 Active loratadine (CLARITIN) 10 MG tablet Take 10 mg by mouth every morning if needed 0 Active oxyCODONE (ROXICODONE) 5 MG immediate release tablet Take 5 mg by mouth at bed time 0 Active pantoprazole (PROTONIX) 20 MG EC tablet Take 20 mg by mouth 0 Active Trulance 3 MG tablet Take 1 tablet by mouth daily 0 Active prazosin (MINIPRESS) 2 MG capsule TAKE 1 CAPSULE BY MOUTH TWICE DAILY IN THE MORNING AND AT BEDTIME 0 Active Xarelto 2.5 MG tablet Take 1 tablet by mouth 2 (two) times a day 0 Active topiramate (TOPAMAX) 50 MG tablet Take 50 mg by mouth at bed time 0 Active traZODone (DESYREL) 150 MG tablet TAKE 1 TABLET BY MOUTH AT BEDTIME NEEDED FOR SLEEP. MAY REPEAT ONCE NEEDED 0 Active gabapentin (NEURONTIN) 100 MG capsule TAKE 1 CAPSULE BY MOUTH THREE TIMES DAILY IN THE MORNING, EVENING, AND BEDTIME 0 Active ergocalciferol (VITAMIN D-2) 1.25 MG (20905 UT) capsule TAKE 1 CAPSULE BY MOUTH ONCE WEEKLY ON Wednesday 0 Active bisacodyl (DULCOLAX) 5 MG EC tablet Take 5 mg by mouth 1 (one) time each day if needed for constipation Do not crush, chew, or split. Active clonazePAM (KlonoPIN) 0.5 MG tablet Take 0.5 mg by mouth 2 (two) times a day Active docusate sodium (COLACE) 100 MG capsule Take 100 mg by mouth 2 (two) times a day Active QUEtiapine XR (SEROquel XR) 200 MG 24 hr tablet Take 200 mg by mouth every night Do not crush, chew, or split. Active Dulaglutide (Trulicity) 0.75 MG/0.5ML solution pen-injector Inject under the skin Active Active Problems Problem Noted Date Diagnosed Date Stage 3a chronic kidney disease 10/29/2020 Hypertensive disorder 07/31/2019 Stage 3b chronic kidney disease 05/09/2019 Renal disorder due to type 2 diabetes mellitus 0 05/09/2019 Resolved Problems Problem Noted Date Diagnosed Date Resolved Date Multiple renal cysts 07/31/2019 021 Anemia in chronic kidney disease 05/09/2019 10/27/2020 Vitamin D deficiency 05/09/2019 021 Family History Medical History Relation Comments Cancer Father Diabetes Father Heart disease Father Hypertension Father Diabetes Mother Hypertension Mother Cancer Sibling Relation Status Comments Father Alive Mother Alive Sibling Social History Tobacco Use Types Packs/Day Years Used Date Smoking Tobacco: Never Alcohol Use Standard Drinks/Week Comments No 0 (1 standard drink = 0.6 oz pur e alcohol) Sex and Gender Information Value Date Recorded Sex Assigned at Not on file Legal Sex Male 2:31 PM EDT Gender Identity Not on file Sexual Orientation Not on file Plan of Treatment Health Maintenance Due Date Last Done Comments Pneumococcal Vaccine: Pediat rics (0 to 5 Years) and At-Risk Patients (6 to 64 Years) (1 of 2 - PCV) 10/14/1969 Colorectal Cancer Screening: Annual FOBT 10/14/2012 Colorectal Cancer Screening: Colonoscopy 10/14/2012 Colorectal Cancer Screening: Sigmoidoscopy 10/14/2012 Diabetes: Hemoglobin A1C 05/09/2019 Diabetes: Pedal Pulse Checked 05/09/2019 Diabetes: Sensory Foot Exam 05/09/2019 Diabetes: Visual Foot Exam 05/09/2019 Diabetes: Ophthalmology Exam 11/20/2020 11/21/2019 Influenza Vaccine (#1) 2023 Hepatitis B Vaccine Aged Out No longe r eligible based on patient's age to complete this topic Insurance [address] [place] [address] [place] [address] [place] [address] * Guarantor: Davon Gonzalez Account Type Relation to Patient Date of Phone Billing Address Personal/Family Self 1965 [address] [place] [address] Care Teams Sail Finisher Hand Relationship Specialty Start Date End Date Toro Bravo PCP - General Internal Medicine 09/06/19
--- OUTSIDE RECORDS SUMMARY | 2024-03-03 15:33 | XMS_ITS | Encounter Summary ---
Author Organization [employer] Address [address] 7[address] [place] [address] Care Team Providers Care Central Lab Technician Name Role Phone Toro Silva MD Primary Care Prov ider Reason for Visit * Reason Onset Date Comments Med Refill 09/29/2023 Encounter Details Date Type Department Care Team ([facility] st Contact Info) Description 09/29/2023 Telephone [facility] MEDICINE [address] [place], [place] [phone] Toro Silva MD [address] [place] [address] Med Refill Social History Tobacco Use Types [...] encounter Miscellaneous Notes * Telephone Encounter - Grazyna Holly LPN - 09/29/2023 3:50 PM EDT Medication pended to PCP for approval. * Telephone Encounter - Bobby Argueta - 09/29/2023 3:41 PM EDT TC from pt requesting medication refill. Medications needing refill: gabapentin (Neurontin) 100 MG capsule To be sent to: [facility] Pharmacy documented in this encounter Plan of Treatment Not on file documented as of this encounter Visit Diagnoses Not on filedocumented in this encounter Additional Health Concerns Assessment Noted Time PHQ-9 Depression Total Score: 11 023 9:53 AM EST documented as of this encounter Care Teams Central Lab Technician Relationship Specialty Start Date End Date Toro Silva MD [address] [place] [address] PCP - General Internal Medicine 07/09/19 Grazyna Alvarado Counselor Education ProfessorSpeedometer Mechanic 08/06/23 documented as of this encounter
--- OUTSIDE RECORDS SUMMARY | 2024-03-03 15:33 | XMS_ITS | Encounter Summary ---
Author Organization [employer] Address [address] [facility] 7t [place] [address] Care Team Providers Care Custom Feed Corn Operator Name Role Phone Toro Silva MD Primary Care Prov ider Reason for Visit * Reason Onset Date Comments Med Refill 04/13/2022 Encounter Details Date Type Department Care Team ([facility] st Contact Info) Description 04/13/2022 Refill [facility] MED & PEDS [address] [place], [place] [phone] Toro Silva MD [address] [place] [address] Social History Tobacco Use Types Packs/Day Years [...] encounter Miscellaneous Notes * Telephone Encounter - Wanda Mclaughlin - 04/13/2022 3:49 PM EST Tc from pt requesting med refill on insulin glargine (Lantus SoloStar) 100 UNIT/ML pen Please sent to [facility] [place], [place] - [address] documented in this encounter Plan of Treatment Not on file documented as of this encounter Visit Diagnoses Not on filedocumented in this encounter Care Teams Custom Feed Corn Operator Relationship Specialty Start Date End Date Troo Silva MD [address] [place] [address] PCP - General Internal Medicine 07/09/19 Grazyna Alvarado Light Equipment OperatorCustomer Manager 08/06/23 documented as of this encounter
== END 2024-03-03 15:53 | disposition home or self-care (01) ==
PROVIDERS: PCP Internal Medicine; Visit Provider Nurse Practitioner Family
DX: R00.0 Tachycardia, unspecified (principal); I10 Essential (primary) hypertension; E66.01 Morbid (severe) obesity due to excess calories; Z68.41 Body mass index [BMI] 40.0-44.9, adult; Z79.01 Long term (current) use of anticoagulants
CPT/HCPCS: 93010; 99213

== ENCOUNTER → 2024-03-03 13:50 | Outpatient (BNVA) | payer MEDICAID, SELFPAY | PROVIDERS: PCP Internal Medicine; Visit Provider Nurse Practitioner Family | DX: R00.0 Tachycardia, unspecified (principal); I10 Essential (primary) hypertension; E66.01 Morbid (severe) obesity due to excess calories; Z79.01 Long term (current) use of anticoagulants; Z68.41 Body mass index [BMI] 40.0-44.9, adult | CPT/HCPCS: 93005; 99212 ==

== ENCOUNTER 2024-03-16 08:38 | Day surgery (SDC) | payer MEDICAID, SELFPAY ==
[2024-03-14 14:34] VITALS: BMI 38.3
--- NOTE | 2024-03-15 13:07 | HO.ANESPROP2 ---
Documented by User: Jaja Casarez NP 03/15/24 13:11 HPI - Anesthesia Eval Consult details Narrative: 58yo M for Colonoscopy Follows [facility] Cardiology for htn, hld, sinus tach. Stable at yearly visit 02/2024 Xarelto for hx PE/dvt Anesthesia Pre-Procedure Meds Is the patient on any of the following meds?: GLP1/DPP4 and SGLT2 Inhib PMFSH Active Problems Active Problems: All Active Problems Tubular adenoma of colon (Acute) Chronic anticoagulation (Acute) Anemia (Acute) Sinus tachycardia (Acute) CHF (congestive heart failure) (Acute) Persistent headaches (Acute) GERD (gastroesophageal reflux disease) (Acute) Chronic idiopathic constipation (Acute) Benign skin lesion of cheek (Acute) Pulmonary embolism (Acute) ARTEM (obstructive sleep apnea) (Acute) Mood disorder (Acute) Dysphagia (Acute) Uninodular goiter (nontoxic) (Acute) Chronic pain (Acute) Type 2 diabetes mellitus with polyneuropathy (Acute) Obesity due to excess calories (Acute) Type 2 diabetes mellitus with hyperglycemia, with long-term current use of insulin (Acute) Hyperlipidemia LDL goal <70 (Acute) Essential hypertension (Acute) Past Medical History Medical History Benign skin lesion of cheek Pulmonary embolism Gastritis SUSY (acute kidney injury) Enteritis Epigastric pain Physical deconditioning SOB (shortness of breath) Colon cancer screening Dysphagia Uninodular goiter (nontoxic) Right knee pain Chronic pain Type 2 diabetes mellitus with polyneuropathy Upper abdominal pain H. pylori infection Obesity due to excess calories Blind right eye Goiter Cancer of eye Chronic kidney disease, stage 3 Hemiparesis affecting left side as late effect of cerebrovascular accident CHF (congestive heart failure) History of poliomyelitis GERD (gastroesophageal reflux disease) Morbid obesity Mood disorder Nasal polyps Angina of effort ARTEM (obstructive sleep apnea) Hemiplegia affecting dominant side Asthma Other pulmonary embolism and infarction Left ventricular hypertrophy Syncope Type 2 diabetes mellitus with hyperglycemia, with long-term current use of insulin Hyperlipidemia LDL goal <70 Essential hypertension Family History Family History Father Stroke Brain cancer CVD (cardiovascular disease) Diabetes Mother Diabetes Family history of problems with anesthesia: No Surgical History Surgical History History of excision of lesion (~09/09/23) History of carpal tunnel surgery History of right knee joint replacement History of esophagogastroduodenoscopy (EGD) History of cardiac catheterization Hx of knee surgery History of coronary artery stent placement History of Problems with Anesthesia: No Social History Social History Household Members: Significant Other 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 If so, by whom?: No Are you DNR?: No Advance Directives: No Advance Directives Information Provided: Yes Advance Directives Date on File: 11/08/20 Recently lost weight without trying: No Nutrition Risks: No Nutritional Risk service: No Meds Allergies Allergy/AdvReac Type Severity Reaction Status Date / Time shellfish derived Allergy Severe SWOLLEN Verified 03/16/24 09:32 THROAT apple [Apple] Allergy Intermediate SWELLING Verified 03/16/24 09:32 egg [Egg] Allergy Intermediate HIVES Verified 03/16/24 09:32 influenza virus vaccine, Allergy Intermediate SWELLING Verified 03/16/24 09:32 specific [Influenza Virus Vacc,Specific] Penicillins Allergy Mild RASH Verified 03/16/24 09:32 lisinopril [Lisinopril] Allergy Unknown UNKNOWN Verified 03/16/24 09:32 nifedipine [From Procardia] Allergy Unknown UNKNOWN Verified 03/16/24 09:32 Home Medications ?Medication ?Instructions ?Recorded ?Confirmed ?Last Taken ?Type albuterol sulfate 2.5 mg/3 mL 2.5 mg inhalation QID 12/14/19 03/14/24 Unknown History (0.083 %) solution for nebulization furosemide 20 mg tablet 20 mg PO DAILY 12/14/19 03/14/24 01/05/21 History gabapentin 100 mg capsule 100 mg PO TID 12/14/19 03/14/24 01/05/21 History lancets 33 gauge (TRUEplus Lancets) #100 ea 12/14/19 09/09/23 Unknown History quetiapine 300 mg tablet,extended 300 mg PO DAILY@1700 12/14/19 03/14/24 01/05/21 History release 24 hr rivaroxaban 2.5 mg tablet (Xarelto) 2.5 mg PO BID 12/14/19 03/14/24 03/13/24 History topiramate 50 mg tablet 50 mg PO BEDTIME 12/14/19 03/14/24 01/05/21 History acetaminophen 500 mg tablet 500 mg PO Q6H PRN Pain 03/22/20 03/14/24 Unknown History (Tylenol Extra Strength) fluticasone propionate 110 1 puff PO BID 01/06/21 03/14/24 01/05/21 History mcg/actuation HFA aerosol inhaler (Flovent HFA) fluticasone propionate 50 1 spray intranasal DAILY 01/06/21 03/14/24 01/05/21 History mcg/actuation nasal spray,suspension lisinopril 40 mg tablet 40 mg PO QAM 12/25/21 03/14/24 03/16/24 History loratadine 10 mg tablet (Allergy 10 mg PO DAILY 12/25/21 03/14/24 Unknown History Relief (loratadine)) atorvastatin 80 mg tablet 80 mg PO BEDTIME 01/06/22 03/14/24 Unknown History blood sugar diagnostic (FreeStyle #10 ea 01/06/22 09/09/23 Unknown History Lite Strips) chlorthalidone 25 mg tablet 25 mg PO QAM 01/06/22 03/14/24 Unknown History ferrous sulfate 325 mg (65 mg 325 mg PO QPM 01/06/22 03/14/24 Unknown History iron) tablet (FeroSul) naloxone 4 mg/actuation nasal 1 spray intranasal ONCE PRN 01/06/22 03/14/24 Unknown History spray (Narcan) overdose pen needle, diabetic 32 gauge x #50 ea 01/06/22 09/09/23 Unknown History (Pentips Pen Needle) prazosin 2 mg capsule 2 mg PO BEDTIME 01/06/22 03/14/24 Unknown History empagliflozin 25 mg tablet 25 mg PO QAM 09/28/23 03/14/24 03/13/24 History (Jardiance) albuterol sulfate 90 mcg/actuation 2 puff inhalation Q4-6H PRN 03/03/24 03/14/24 Unknown History aerosol inhaler Wheezing carvedilol 25 mg tablet 25 mg PO BID 03/03/24 03/14/24 03/16/24 History duloxetine 60 mg capsule,delayed 60 mg PO QAM 03/14/24 03/14/24 Unknown History release trazodone 150 mg tablet 150 - 300 mg PO BEDTIME PRN 03/14/24 03/14/24 Unknown History insomnia Exam Height,Weight and Vital Signs: Height 5 ft 4 in Weight 101.151 kg Pertinent Lab Results Pertinent Lab Results: Laboratory Tests 05/14/23 12/15/23 10:25 10:01 WBC 10.7 Hgb 13.1 L Hct 40.0 L Plt Count 288 Sodium 143 Potassium 4.4 Chloride 107 Carbon Dioxide 27 BUN 31 H Creatinine 1.83 H Narrative Narrative: EKG 02/2024 Details: sinus tachycardia, T-wave abnormality lead 3 and AVF, rate 104, QTC 439 millisecond Echocardiogram done 02/11/2023 showing EF 55-60%, grade 1 diastolic dysfunction. Holter monitor done 02/15/2023 showed sinus rhythm with average heart rate 91 29% of time greater than 100. Assessment and Plan Assessment Anesthesia Assessment: Chart Reviewed Final Anesthetic Review Family History of Problems with Anesthesia: No History of Problems with Anesthesia: No Documented by User: Josh Roa MD 03/16/24 09:37 [facility] Past Medical History Medical History Benign skin lesion of cheek Pulmonary embolism Gastritis SUSY (acute kidney injury) Enteritis Epigastric pain Physical deconditioning SOB (shortness of breath) Colon cancer screening Dysphagia Uninodular goiter (nontoxic) Right knee pain Chronic pain Type 2 diabetes mellitus with polyneuropathy Upper abdominal pain H. pylori infection Obesity due to excess calories Blind right eye Goiter Cancer of eye Chronic kidney disease, stage 3 Hemiparesis affecting left side as late effect of cerebrovascular accident CHF (congestive heart failure) History of poliomyelitis GERD (gastroesophageal reflux disease) Morbid obesity Mood disorder Nasal polyps Angina of effort ARTEM (obstructive sleep apnea) Hemiplegia affecting dominant side Asthma Other pulmonary embolism and infarction Left ventricular hypertrophy Syncope Type 2 diabetes mellitus with hyperglycemia, with long-term current use of insulin Hyperlipidemia LDL goal <70 Essential hypertension Family History Family History Father Stroke Brain cancer CVD (cardiovascular disease) Diabetes Mother Diabetes Surgical History Surgical History History of excision of lesion (~09/09/23) History of carpal tunnel surgery History of right knee joint replacement History of esophagogastroduodenoscopy (EGD) History of cardiac catheterization Hx of knee surgery History of coronary artery stent placement Social History Social History Household Members: Significant Other 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 If so, by whom?: No Are you DNR?: No Advance Directives: No Advance Directives Information Provided: Yes Advance Directives Date on File: 11/08/20 Recently lost weight without trying: No Nutrition Risks: No Nutritional Risk service: No Meds Allergies Allergy/AdvReac Type Severity Reaction Status Date / Time shellfish derived Allergy Severe SWOLLEN Verified 03/16/24 09:32 THROAT apple [Apple] Allergy Intermediate SWELLING Verified 03/16/24 09:32 egg [Egg] Allergy Intermediate HIVES Verified 03/16/24 09:32 influenza virus vaccine, Allergy Intermediate SWELLING Verified 03/16/24 09:32 specific [Influenza Virus Vacc,Specific] Penicillins Allergy Mild RASH Verified 03/16/24 09:32 lisinopril [Lisinopril] Allergy Unknown UNKNOWN Verified 03/16/24 09:32 nifedipine [From Procardia] Allergy Unknown UNKNOWN Verified 03/16/24 09:32 Home Medications ?Medication ?Instructions ?Recorded ?Confirmed ?Last Taken ?Type albuterol sulfate 2.5 mg/3 mL 2.5 mg inhalation QID 12/14/19 03/14/24 Unknown History (0.083 %) solution for nebulization furosemide 20 mg tablet 20 mg PO DAILY 12/14/19 03/14/24 01/05/21 History gabapentin 100 mg capsule 100 mg PO TID 12/14/19 03/14/24 01/05/21 History lancets 33 gauge (TRUEplus Lancets) #100 ea 12/14/19 09/09/23 Unknown History quetiapine 300 mg tablet,extended 300 mg PO DAILY@1700 12/14/19 03/14/24 01/05/21 History release 24 hr rivaroxaban 2.5 mg tablet (Xarelto) 2.5 mg PO BID 12/14/19 03/14/24 03/13/24 History topiramate 50 mg tablet 50 mg PO BEDTIME 12/14/19 03/14/24 01/05/21 History acetaminophen 500 mg tablet 500 mg PO Q6H PRN Pain 03/22/20 03/14/24 Unknown History (Tylenol Extra Strength) fluticasone propionate 110 1 puff PO BID 01/06/21 03/14/24 01/05/21 History mcg/actuation HFA aerosol inhaler (Flovent HFA) fluticasone propionate 50 1 spray intranasal DAILY 01/06/21 03/14/24 01/05/21 History mcg/actuation nasal spray,suspension lisinopril 40 mg tablet 40 mg PO QAM 12/25/21 03/14/24 03/16/24 History loratadine 10 mg tablet (Allergy 10 mg PO DAILY 12/25/21 03/14/24 Unknown History Relief (loratadine)) atorvastatin 80 mg tablet 80 mg PO BEDTIME 01/06/22 03/14/24 Unknown History blood sugar diagnostic (FreeStyle #10 ea 01/06/22 09/09/23 Unknown History Lite Strips) chlorthalidone 25 mg tablet 25 mg PO QAM 01/06/22 03/14/24 Unknown History ferrous sulfate 325 mg (65 mg 325 mg PO QPM 01/06/22 03/14/24 Unknown History iron) tablet (FeroSul) naloxone 4 mg/actuation nasal 1 spray intranasal ONCE PRN 01/06/22 03/14/24 Unknown History spray (Narcan) overdose pen needle, diabetic 32 gauge x #50 ea 01/06/22 09/09/23 Unknown History 5/32 (Pentips Pen Needle) prazosin 2 mg capsule 2 mg PO BEDTIME 01/06/22 03/14/24 Unknown History empagliflozin 25 mg tablet 25 mg PO QAM 09/28/23 03/14/24 03/13/24 History (Jardiance) albuterol sulfate 90 mcg/actuation 2 puff inhalation Q4-6H PRN 03/03/24 03/14/24 Unknown History aerosol inhaler Wheezing carvedilol 25 mg tablet 25 mg PO BID 03/03/24 03/14/24 03/16/24 History duloxetine 60 mg capsule,delayed 60 mg PO QAM 03/14/24 03/14/24 Unknown History release trazodone 150 mg tablet 150 - 300 mg PO BEDTIME PRN 03/14/24 03/14/24 Unknown History insomnia Exam Airway Mallampati Class: III TM Dist: >3cm Neck ROM: Full Denture: Upper and Lower Assessment and Plan Assessment Anesthesia Assessment: Anesthesia Plan Discussed Final Anesthetic Review NPO: Yes ASA Class: III Final Preanesthetic Review: No Changes in Pt Med Stat, Meds/Allgs Chart Reviewed, Consent Obtained/Reviewed, Anes Risks/Benef Reviewed and DNR Form (If Appl.) Patient Risk: Intermediate Procedure Risk: Low Anesthetic Plan Anesthetic Plan: TIVA Disposition: Standard PACU
--- OUTSIDE RECORDS SUMMARY | 2024-03-16 08:54 | XMS_ITS | Encounter Summary ---
Author Organization [employer] Address [address] [place] [address] Care Team Providers Care Trimming Cutter Machine Name Role Phone Toro Silva MD Primary Care Prov ider Reason for Visit * Reason Onset Date Comments c/b request 2022 Encounter Details Date Type Department Care Team ([facility] st Contact Info) Description 2022 Telephone [facility] MED & PEDS [address] [place], [place] [phone] Toro Silva MD [address] [place] [address] c/b request Social History Tobacco Use Types [...] for a call back. TC placed to [facility] Gastro no answer left a message for Joan on voice mail gave [facility] direct number for a call back TC placed to pt for a third time and another message was left for him to contact the [facility] nurses. Several messages also left at Gastro office with no call back will send to PCP as FYI. * Telephone Encounter - Carolyn Cha RN - 10/19/2022 11:24 AM EDT Tc from [place] with [facility] requesting a call in regards to pt upcoming colonoscopy appointment on 10/21 Please contact joan at [phone] TC returned to [place] and a message was left for a [...] for a call back. TC placed to [facility] Gastro no answer left a message for Joan on voice mail gave [facility] direct number for a call back * Telephone Encounter - Gianna Antonio - 2022 10:37 AM EDT Tc from [place] with [facility] requesting a call in regards to pt upcoming colonoscopy appointment on 10/21 Please contact joan at [phone] documented in this encounter Plan of Treatment Not on file documented as of this encounter Visit Diagnoses Not on filedocumented in this encounter Additional Health Concerns Assessment Noted Time PHQ-9 Depression Total Score: 0 07/02/19 9:45 AM EDT documented as of this encounter Care Teams Trimming Cutter Machine Relationship Specialty Start Date End Date Toro Silva MD [address] [place] [id number] PCP - General Internal Medicine 07/09/19 Grazyna Alvarado Passenger ScreenerYarn Examiner Skeins 08/06/23 documented as of this encounter
--- OUTSIDE RECORDS SUMMARY | 2024-03-16 08:54 | XMS_ITS | Encounter Summary ---
Author Organization [employer] Address [address] [facility] [place] [address] Care Team Providers Care Service Order Taker Name Role Phone Toro Silva MD Primary Care Prov ider Encounter Details Date Type Department Care Team (Latest Contact Info) Description 04/21/2019 Abstract [facility] Dental, Provider, DDS Social History Tobacco [...] on filedocumented in this encounter Care Teams Service Order Taker Relationship Specialty Start Date End Date Toro Silva MD [address] [place] [address] PCP - General Internal Medicine 07/09/19 Grazyna Alvarado Digital Media RepresentativeHydraulic Governor Assembler 08/06/23 documented as of this encounter
--- OUTSIDE RECORDS SUMMARY | 2024-03-16 08:54 | XMS_ITS | Encounter Summary ---
Author Organization [employer] Address [address] [place] [address] Care Team Providers Care Catering Sales Manager Name Role Phone Toro Silva MD Primary Care Prov ider Reason for Visit * Reason Onset Date Comments PT-1 11/27/2022 Encounter Details Date Type Department Care Team ([facility] st Contact Info) Description 11/27/2022 Telephone [facility] MEDICINE [address] [place] [address] Toro Silva MD [address] [place] [address] PT-1 Social History Tobacco Use Types Packs/Day [...] in the mail. * Telephone Encounter - Mariebl Carroll - 11/27/2022 10:20 AM EDT Tc from [place] requesting a PT-1 , states they have an upcoming up. PT-1 Date: 12/01/22 Time: 1:30pm Visits: twice a month Facility: [place] [address] Wheel Chair: Electric wheel chair Director News Needed: Yes documented in this encounter Plan of Treatment Not on file documented as of this encounter Visit Diagnoses Not on filedocumented in this encounter Additional Health Concerns Assessment Noted Time PHQ-9 Depression Total Score: 0 07/02/19 9:45 AM EDT documented as of this encounter Care Teams Catering Sales Manager Relationship Specialty Start Date End Date Toro Silva MD [address] [place] [id number] PCP - General Internal Medicine 07/09/19 Grazyna Alvarado Automotive Diagnostic TechnicianGate Agent 08/06/23 documented as of this encounter
--- OUTSIDE RECORDS SUMMARY | 2024-03-16 08:54 | XMS_ITS | Encounter Summary ---
Author Organization [employer] Address [address] [place] [address] Care Team Providers Care Fitter / Welder Name Role Phone Toro Silva MD Primary Care Prov ider Reason for Visit * Reason Onset Date Comments PT-1 01/17/2024 Encounter Details Date Type Department Care Team ([facility] st Contact Info) Description 01/17/2024 Telephone [facility] MEDICINE [address] [place] [address] Toro Silva MD [address] [place] [address] PT-1 Social History Tobacco Use Types Packs/Day [...] Y/N: Yes Provider name or facility name: [facility] Escort needed: Y/N: Yes Do you have [...] documented as of this encounter Care Teams Fitter / Welder Relationship Specialty Start Date End Date Toro Silva MD [address] [place] [address] PCP - General Internal Medicine 07/09/19 Grazyna Alvarado Bilingual Loan ProcessorSpecifications Checker 08/06/23 documented as of this encounter
--- OUTSIDE RECORDS SUMMARY | 2024-03-16 08:54 | XMS_ITS | Encounter Summary ---
Author Organization [employer] Address [address] [facility] [address] [place] [address] Care Team Providers Care Fabric Awning Repairer Name Role Phone Toro Silva MD Primary Care Prov ider Reason for Visit * Reason Comments Med Refill Encounter Details Date Type Department Care Team (Late st Contact Info) Description 10/16/2022 Refill [facility] MEDICINE [address] [place], [place] [phone] Toro Silva MD [address] [place], [place] [phone] Chronic pain syndrome Social History Tobacco Use [...] documented as of this encounter Care Teams Fabric Awning Repairer Relationship Specialty Start Date End Date Toro Silva MD [address] [place] [address] PCP - General Internal Medicine 07/09/19 Grazyna Alvarado Combat Systems OperatorAdministrative Technician 08/06/23 documented as of this encounter
--- OUTSIDE RECORDS SUMMARY | 2024-03-16 08:54 | XMS_ITS | Encounter Summary ---
Author Organization [employer] Address [address] [place] [address] Care Team Providers Care Manager Pmo Name Role Phone Toro Silva MD Primary Care Prov ider Reason for Visit * Reason Comments Med Refill Encounter Details Date Type Department Care Team (Late st Contact Info) Description 02/22/2024 Refill [facility] MEDICINE [address] [place] [address] Toro Silva MD [address] [place], [place] [phone] Primary hypertension Social History Tobacco Use Types [...] documented as of this encounter Care Teams Manager Pmo Relationship Specialty Start Date End Date Toro Silva MD [address] [place] [id number] PCP - General Internal Medicine 07/09/19 Grazyna Alvarado Hotel Baggage HandlerPhotoengraving Proofer 08/06/23 documented as of this encounter
--- OUTSIDE RECORDS SUMMARY | 2024-03-16 08:54 | XMS_ITS | Encounter Summary ---
Author Organization [employer] Address [address] [place] [address] Care Team Providers Care Asbestos Removal Supervisor Name Role Phone Toro Silva MD Primary Care Prov ider Encounter Details Date Type Department Care Team (Late st Contact Info) Description 02/22/2024 Refill [facility] MEDICINE [address] [place] [address] Toro Silva MD [address] [place], [place] [phone] Primary hypertension Social History Tobacco Use Types [...] documented as of this encounter Care Teams Asbestos Removal Supervisor Relationship Specialty Start Date End Date Toro Silva MD [address] [place] [address] PCP - General Internal Medicine 07/09/19 Grazyna Alvarado Cell StripperDirector Of Billing 08/06/23 documented as of this encounter
--- OUTSIDE RECORDS SUMMARY | 2024-03-16 08:54 | XMS_ITS | Encounter Summary ---
Author Organization [employer] Address [address] [place] [address] Care Team Providers Care Liner Worker Name Role Phone Toro Silva MD Primary Care Prov ider Reason for Visit * Reason Comments Med Refill Encounter Details Date Type Department Care Team (Late st Contact Info) Description 03/13/2024 Refill [facility] MEDICINE [address] [place] [address] Toro Silva MD [address] [place], [place] [phone] Primary hypertension Social History Tobacco Use Types [...] documented as of this encounter Care Teams Liner Worker Relationship Specialty Start Date End Date Toro Silva MD [address] [place] [id number] PCP - General Internal Medicine 07/09/19 Grazyna Alvarado Patient SitterComponents Engineer 08/06/23 documented as of this encounter
--- OUTSIDE RECORDS SUMMARY | 2024-03-16 08:54 | XMS_ITS | Encounter Summary ---
Author Organization [employer] Address [address] [facility] [address] [address] 7t [place] [address] Care Team Providers Care Recreation Facility Manager Name Role Phone Toro Silva MD Primary Care Prov ider Encounter Details Date Type Department Care Team (Late st Contact Info) Description 03/05/2022 Orders Only [facility] MEDICINE [address] [place] [address] Toro Silva MD [address] [place], [place] [phone] Disorder of vision (Primary Dx) Social History [...] PM EDT 10/21/2022 3:10 PM EDT Narrative [facility] - 10/22/2022 2:46 PM EDT ----- ------- Name: Davon Gonzalez ? Age/Sex: 57/M ? : 1965 Unit#: [id number] ?? Attend Dr: Valente Drake MD ?Re10/21/22 ?Status: DEP SDC ? Location: HO.SSS ?Disch: ? ----- ------- SPEC : [id number] ? RECD: 10/21/22-2230 ? STATUS: ??SOUT ? REQ NUM: [id number] ? ARLYN: 10/21/22-1331 ? SUBM DR: Valente [...] Silva MD ?? [address] ?? [place] [address] ?? [phone] ? CONTINUED ON NEXT PAGE ----- ------- Name: Davon Gonzalez ? Age/Sex: 57/M ? : 1965 Unit#: [id number] ?? Attend Dr: Valente Drake MD ?Re10/21/22 ?Status: DEP SDC ? Location: HO.SSS ?Disch: ? ----- ------- SPEC : [id number] ? RECD: 10/21/22-1509 ? STATUS: ??SOUT ? REQ NUM: [id number] ? ARLYN: 10/21/22-1331 ? SUBM DR: Valente Drake MD ? ENTERED: ??10/21/22-1509 ?SP TYPE: Surgical ? OTHR DR: Toro Silva MD ORDERED: ??HE Stain/6, Gross Micro L4/2 ? Copies To: ??(Continued) ?? Valente Drake MD ?? [address] [facility] ?? [place] [address] ?? [phone] ----- ------- Signed (signature on file) Jennifer Frederick 10/22/22 1446 ? ----- ------- ? END OF REPORT ? us [facility] External Provider LAB BLO OD ORDERABLES Final Result [facility] [address] [facility] [place] [address] [phone] * (ABNORMAL) Glucose, Whole Blood (10/21/2022 11:49 AM EDT) Glucose, Whole Blood 143(H) 60 - 115 mg/dL [facility] Comment:METER #: [id number] 7 10/21/2022 11:4 9 AM EDT 10/21/2022 11:52 AM EDT us [facility] External Provider LAB BLO OD ORDERABLES Final Result [facility] [address] [place] [address] [phone] documented in this encounter Visit Diagnoses Diagnosis Disorder of vision- Primary documented in this encounter Care Teams Recreation Facility Manager Relationship Specialty Start Date End Date Toro Silva MD [address] [place] [address] PCP - General Internal Medicine 07/09/19 Grazyna Alvarado Community Health DirectorBasketball Scout 08/06/23 documented as of this encounter
--- OUTSIDE RECORDS SUMMARY | 2024-03-16 08:54 | XMS_ITS | Encounter Summary ---
Author Organization [employer] Address [address] [facility] [address] 7t [place] [address] Care Team Providers Care Associate Director Regulatory Affairs Name Role Phone Toro Silva MD Primary Care Prov ider Reason for Visit * Reason Onset Date Comments Medication Question 03/07/2024 Encounter Details Date Type Department Care Team ([facility] Contact Info) Description 03/07/2024 Telephone [facility] CHC MED & PEDS [address] [place], [place] [phone] Toro Silva MD 505 [place] [address] Medication Question Social History Tobacco Use Types Packs/Day Years [...] encounter Miscellaneous Notes * Telephone Encounter - Inderjit Elena - 03/10/2024 10:45 AM EST TC from [facility] regarding below message . Instrument Mechanic sent a secure chat to provider . Per Provider hold 2 days prior procedure, restart 1 day after * Telephone Encounter - Courtney Cortes - 03/07/2024 2:17 PM EST Tc from [facility] at [facility] stating pt is scheduled for colonoscopy on 03/16/24 and [facility] would like a call back to advise on holding off on medication Xarelto 2.5 MG tablet Contact [facility] [phone] opt 5 documented in this encounter Plan of Treatment Not on file documented as of this encounter Visit Diagnoses Not on filedocumented in this encounter Additional Health Concerns Assessment Noted Time PHQ-9 Depression Total Score: 11 023 9:53 AM EST documented as of this encounter Care Teams Associate Director Regulatory Affairs Relationship Specialty Start Date End Date Toro Silva MD [address] [place] [phone] PCP - General Internal Medicine 07/09/19 Grazyna Alvarado Literary WriterPaediatric Thoracic Physician 08/06/23 documented as of this encounter
--- OUTSIDE RECORDS SUMMARY | 2024-03-16 08:54 | XMS_ITS | Encounter Summary ---
Author Organization [employer] Address [address] 7t [place] [address] Care Team Providers Care Sizing Machine Tender Name Role Phone Toro Silva MD Primary Care Prov ider Reason for Visit * Reason Onset Date Comments Durable Medical Equipment 12/20/2023 Encounter Details Date Type Department Care Team ([facility] st Contact Info) Description 12/20/2023 Telephone [facility] MEDICINE [address] [place], [place] [phone] Toro Silva MD 505 [place] [address] Durable Medical Equipment Social History Tobacco Use [...] documented as of this encounter Care Teams Sizing Machine Tender Relationship Specialty Start Date End Date Toro Silva MD [address] [place] [address] PCP - General Internal Medicine 07/09/19 Grazyna Alvarado EngraverRadio Journalist 08/06/23 documented as of this encounter
--- OUTSIDE RECORDS SUMMARY | 2024-03-16 08:54 | XMS_ITS | Encounter Summary ---
Author Organization [employer] Address [address] [facility] 7t [place] [address] Care Team Providers Care Field Support Engineer Name Role Phone Toro Silva MD Primary Care Prov ider Reason for Visit * Reason Comments Med Refill Encounter Details Date Type Department Care Team (Late st Contact Info) Description 03/03/2022 Refill [facility] CHC MED & PEDS 505 [place] [address] Toro Silva MD 505 [place] [address] Chronic pain syndrome Social History Tobacco Use [...] syndrome documented in this encounter Care Teams Field Support Engineer Relationship Specialty Start Date End Date Toro Silva MD 505 [place] [address] PCP - General Internal Medicine 07/09/19 Grazyna Alvarado Shearing Machine FeederBurr Filer 08/06/23 documented as of this encounter
--- OUTSIDE RECORDS SUMMARY | 2024-03-16 08:54 | XMS_ITS | Encounter Summary ---
Author Organization [employer] Address [address] [facility] [address] 7t [place] [address] Care Team Providers Care Clinical Investigator Name Role Phone Toro Silva MD Primary Care Prov ider Reason for Visit * Reason Comments Med Refill Encounter Details Date Type Department Care Team ([facility] st Contact Info) Description 02/21/2024 Refill [facility] CHC MED & PEDS 505 [place], [place] [phone] Toro Silva MD 505 [place] [address] Neuropathy Social History Tobacco Use Types Packs/Day [...] documented as of this encounter Care Teams Clinical Investigator Relationship Specialty Start Date End Date Toro Silva MD [address] [place] [phone] PCP - General Internal Medicine 07/09/19 Grazyna Alvarado Automotive Design DrafterPlisse Machine Operator 08/06/23 documented as of this encounter
--- OUTSIDE RECORDS SUMMARY | 2024-03-16 08:55 | XMS_ITS | Clinical Summary ---
Demographics Address [address] [place] [address] [address] [facility] [place] [address] Home Phone Home Phone Preferred Language es Marital Status Unknown Congregation Affiliation Unknown Race Unknown Ethnic Group Unknown Author Organization [facility], Address [address] [place] [address] [place] [address] Phone Care Team Providers Care Farmer General Name Role Phone Toro Bravo Primary Care [...] 0 Active ergocalciferol (VITAMIN D-2) 1.25 MG (52117 UT) capsule TAKE 1 CAPSULE BY MOUTH [...] to complete this topic Insurance [address] [place] [address] [place] [address] [place] [address] * Guarantor: Davon Gonzalez Account Type Relation to Patient Date of Phone Billing Address Personal/Family Self 1965 [address] [facility] [address] [place] [address] Care Teams Farmer General Relationship Specialty Start Date End Date Toro Bravo PCP - General Internal Medicine 09/06/19
--- OUTSIDE RECORDS SUMMARY | 2024-03-16 08:55 | XMS_ITS | Encounter Summary ---
Author Organization [employer] Address [address] [facility] [address] 7t [place] [address] Care Team Providers Care Cinder Dump Crane Operator Name Role Phone Toro Silva MD Primary Care Prov ider Reason for Visit * Reason Onset Date Comments Med Refill 08/12/2022 Encounter Details Date Type Department Care Team ([facility] st Contact Info) Description 08/12/2022 Telephone [facility] CHC MED & PEDS 505 [place], [place] [phone] Toro Silva MD 505 [place] [address] Med Refill Social History Tobacco Use Types [...] documented as of this encounter Care Teams Cinder Dump Crane Operator Relationship Specialty Start Date End Date Toro Silva MD [address] [place] [address] PCP - General Internal Medicine 07/09/19 Grazyna Alvarado Police Radio DispatcherHook Up 08/06/23 documented as of this encounter
--- OUTSIDE RECORDS SUMMARY | 2024-03-16 08:55 | XMS_ITS | Encounter Summary ---
Author Organization [employer] Address [address] [facility] 7t [place] [address] Care Team Providers Care Integration Director Name Role Phone Toro Silva MD Primary Care Prov ider Reason for Visit * Reason Onset Date Comments Med Refill 04/13/2022 Encounter Details Date Type Department Care Team ([facility] st Contact Info) Description 04/13/2022 Refill [facility] CHC MED & PEDS 505 [place], [place] [phone] Toro Silva MD 505 [place] [address] Social History Tobacco Use Types Packs/Day Years [...] SoloStar) 100 UNIT/ML pen Please sent to [facility] [place], [place] - [address] documented in this encounter Plan of Treatment Not on file documented as of this encounter Visit Diagnoses Not on filedocumented in this encounter Care Teams Integration Director Relationship Specialty Start Date End Date Toro Silva MD [address] [place] [address] PCP - General Internal Medicine 07/09/19 Grazyna Alvarado Lodging Facilities ManagerDining Room Host/Hostess 08/06/23 documented as of this encounter
--- OUTSIDE RECORDS SUMMARY | 2024-03-16 08:55 | XMS_ITS | Clinical Summary ---
Author Organization [employer] Address [address] [facility] 7t [place] [address] Care Team Providers Care Commercial Finance Analyst Name Role Phone Toro Silva MD Primary [...] MG tablet Take 1 tablet by mouth. 022 Active fluticasone (Flonase) 50 MCG/ACT nasal sprayIndications: [...] 10 mg by mouth in the morning. 023 Active pantoprazole (ProtoNix) 40 MG EC tablet TAKE 1 TABLET BY MOUTH TWICE DAILY IN THE MORNING AND IN THE EVENING Active Flovent HFA 110 MCG/ACT inhaler INHALE 1 PUFF BY MOUTH TWICE DAILY. RINSE MOUTH AFTER USING. 12 g 5 024 Active QUEtiapine XR (SEROquel XR) 300 MG 24 hr tablet TAKE 1 TABLET BY MOUTH AT BEDTIME 30 tablet 5 024 Active prazosin (Minipress) 2 MG capsule TAKE 1 CAPSULE BY MOUTH TWICE DAILY IN THE MORNING AND AT BEDTIME 180 capsule 1 024 Active DULoxetine (Cymbalta) [address] capsule TAKE 1 CAPSULE BY MOUTH EVERY MORNING 90 capsule 1 024 Active traZODone (Desyrel) 150 MG tablet TAKE 1 TO 2 TABLETS BY MOUTH AT BEDTIME NEEDED FOR SLEEP 180 tablet 1 024 Active cetirizine (ZyrTEC) 10 MG tablet TAKE 1 TABLET BY MOUTH EVERY MORNING 90 tablet 3 024 Active empagliflozin (Jardiance) 25 MG Take 1 tablet (25 mg) by mouth Once per day. 90 tablet 3 024 2024 Active TRUEplus Lancets 33G [facility] TEST BLOOD SUGAR FOUR TIMES DAILY 100 each 11 024 Active Alcohol Swabs (Alcohol Prep) 70 % pads USE DIRECTED FOUR TIMES DAILY 100 each 11 Active Xarelto 2.5 MG tabletIndications :Pulmonary embolism and infarction ([facility]/HCC) TAKE 1 TABLET BY MOUTH TWICE DAILY [...] TABLET BY MOUTH EVERY EVENING 90 tablet 024 Active FREESTYLE LITE test stripIndications: Type 2 diabetes mellitus with stage 3b chronic kidney disease, with long-term current use of insulin ([facility]) TEST BLOOD SUGAR FOUR TIMES DAILY 100 strip 11 Active lisinopril 40 MG tabletIndications :Primary hypertension TAKE 1 TABLET BY MOUTH EVERY MORNING 90 tablet 3 024 Active insulin glargine (Lantus SoloStar) 100 UNIT/ML penIndications: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 ([facility]) Inject 35 Units under the skin 2 [...] evening meal. 180 tablet 1 025 Active chlorthalidone (Hygroton) 25 MG tabletIndications :Primary hypertension TAKE 1 TABLET BY MOUTH EVERY MORNING 90 tablet 3 025 Active chlorthalidone (Hygroton) 25 MG tabletIndications :Primary hypertension TAKE 1 TABLET BY MOUTH EVERY MORNING 90 tablet 3 024 2024 Discontinued carvedilol (Coreg) 25 MG [...] (08/04/2022 2:39 PM EDT): Followed by cardiology Convoy filter in place 01/07/2018 Hemiparesis affecting left [...] Eye exam pending [place] Assessment & Plan (04/07/2023 1:46 PM EST): [...] Encounters Date Type Department Care Team Description 03/13/2024 Refill [facility] MEDICINE [address] [place] [address] Toro Silva MD Primary hypertension 03/07/2024 Telephone [facility] MED & PEDS [address] [place] [address] Toro Silva MD Medication Question 02/22/2024 Refill [facility] MEDICINE [address] [place] [address] Toro Silva MD Primary hypertension 02/22/2024 Refill [facility] MEDICINE [address] [place] [address] Toro Silva MD Primary hypertension 02/21/2024 Refill [facility] MED & PEDS [address] [place] [address] Toro Silva MD Neuropathy 02/10/2024 Refill [facility] MEDICINE [address] [place] [address] Toro Silva MD Mixed hyperlipidemia 01/20/2024 10:45 AM EST Office Visit [facility] MED & PEDS 505 [place] [address] Toro Silva MD Other iron deficiency anemia (Primary Dx); Type 2 diabetes mellitus with stage 3b chronic kidney disease, with long-term current use of insulin (CMS/HCC); CKD stage 3 due to type 2 diabetes mellitus (CMS/HCC); Primary hypertension 01/20/2024 Travel 01/20/2024 Refill [facility] MED & PEDS [address] [place] [address] Toro Silva MD Primary hypertension; Neuropathy 01/17/2024 Telephone [facility] MEDICINE [address] [place] [phone] Toro Silva MD PT-1 01/10/2024 Patient Outreach [facility] MED & PEDS [address] [place] [address] Toro Silva MD Pre-visit Planning (SDOH negative, Tobacco screening negative.) 01/08/2024 Refill [facility]INE [address] [place] [address] Toro Silva MD Type 2 diabetes mellitus with stage 3b chronic kidney disease, with long-term current use of insulin (CMS/HCC) 12/31/2023 11:15 AM EST Telemedicine [facility] MED & PEDS [address] [place] [address] Toro Silva MD Type 2 diabetes mellitus with stage 3b chronic kidney disease, with long-term current use of insulin (CMS/HCC) (Primary Dx); CKD stage 3 due to type 2 diabetes mellitus (CMS/HCC) 12/31/2023 Travel 12/30/2023 Telephone [facility] MED & PEDS [address] [place] [address] Toro Silva MD No Show 12/30/2023 Telephone [facility] MED & PEDS [address] [place], [place] [phone] Toro Silva MD 12/30/2023 Travel 12/21/2023 Refill [facility] MED & PEDS [address] [place], [place] [phone] Toro Silva MD Iron deficiency anemia secondary to inadequate dietary iron intake 12/20/2023 Telephone [facility]ICINE [address] [place], [place] [phone] Toro Silva MD Durable Medical Equipment 12/15/2023 Orders Only GENERIC EXTERNAL DATA DEPARTMENT Provider, Generic External Data from Last 3 Months Immunizations Name Administration [...] 1965 Alcohol/Substance Use Screening 1975 Pneumococcal Vaccine: 50+ Years (2 of 2 - PCV) 04/17/2008 04/18/2007, [...] AM EST) Hemoglobin A1c 7.4(H) <6.0 % [facility] Comment:Hemoglobin A1C Refer ence Range Adults: 4.8 - 6.0 % Non diabetic: < 6.0 % Goal: < 7.0 %Additional Action Suggested: > 8.0 %Note: Hemoglobin A1c results are invalid for patients with abnormal amounts of HbF. Blood transfusions may impact the HbA1c concentration in the patient sample. Estimated Average Glucose 166 mg/dL [facility] Comment:eAG = Estimated ave rage glucose which is %A1C expressed asaverage glucose, using the formula of the [id number] Glucose study (ADAG), Diabetes Care, Vol.31,#8,Sep. 2007 12/15/2023 10:0 1 AM EST 12/15/2023 11:30 AM EST us Generic External Data Provider LAB BLOOD ORDERAB LES Final Result Performing Organization Address City/State/[facility] Co de Phone Number [facility] [address] [place] [phone] * (ABNORMAL) Lipid Panel, Standard (12/15/2023 10:01 AM EST) Triglycerides 141 <150 mg/dL [facility] Comment:Desirable Triglyceri de: less than 150 mg/dLBorderline High Triglyceride 150-199 mg/dLHigh Triglyceride: 200-499 mg/dLVery High Triglyceride: greater than or equal to 5OO mg/dL Cholesterol 106 <200 mg/dL [facility] Comment:Desirable Cholestero l: less than 200 mg/dLBorderline High Cholesterol: 200-239 mg/dLHigh Cholesterol: greater than 239 mg/dL LDL Cholesterol Calculated 45 <100 mg/dL [facility] Comment:Desirable LDL: less than 100 mg/dLNear Optimal/Above Optimal LDL: 110- 129 mg/dLBorderline High LDL: 130-159 mg/dLHigh LDL: 160-189 mg/dLVery High LDL: greater than or equal to 190 mg/dL HDL Cholesterol 33(L) >40 mg/dL [facility] Comment:Desirable HDL: great er than 40 mg/dL Note: This HDL assay may give artificially low results in patients with liver disease. Blood Venous blood specimen / Unknown 12/15/2023 10:01 AM EST 12/15/2023 11:32 AM EST Toro Perez MD LAB BLOOD ORDERABL ES Final Result [facility] [address] [place] [phone] * (ABNORMAL) Comprehensive Metabolic Panel (12/15/2023 10:01 AM EST) Sodium 143 135 - 145 mmol/L [facility] Potassium 4.4 3.3 - 5.1 mmol/L [facility] Comment:Slight Hemolysis.Int erpret result with caution. Chloride 107 96 - 108 mmol/L [facility] Carbon Dioxide 27 22 - 29 mmol/L [facility] Anion Gap 13 12 - 20 [facility] Urea Nitrogen (BUN) 31(H) 9 - 16 mg/dL [facility] Creatinine, Serum 1.83(H) 0.5 - 1.4 mg/dL [facility] Estimated Glomerular Filt Rate 38 [facility] Comment:NOTE: For -Am erican individuals, multiply the result by 1.210.Chronic Kidney Disease: Estimated GFR < 60 mL/min/1.34b9Mqeqhz Kidney Disease: Estimated GFR < 15 mL/min/1.73m2 Glucose 136(H) 60 - 115 mg/dL [facility] Calcium 9.7 8.4 - 10.2 mg/dL [facility] Bilirubin, Total 0.3 0.0 - 1.0 mg/dL [facility] Aspartate Amino Transferase 24 5 - 37 U/L [facility] Comment:Slight Hemolysis.Int erpret result with caution. Alanine Aminotransferase 16 0 - 40 U/L [facility] Total Protein 7.7 6.5 - 8.0 g/dL [facility] Albumin Level 4.0 3.5 - 5.0 g/dL [facility] Alkaline Phosphatase 88 39 - 117 U/L [facility] Blood Venous blood specimen / Unknown 12/15/2023 10:01 AM EST 12/15/2023 11:32 AM EST Toro Perez MD LAB BLOOD ORDERABL ES Final Result Performing Organization Address City/[facility]/ZIP Co de Phone Number [facility] [address] [place] [address] [phone] * HIV-1 RNA, Quantitative, Real-Time PCR with Reflex to Genotype (RTI, PI, Integrase) (05/11/2022 9:42 AM EDT) HIV 1 RNA, QN PCR NOT DETECTED copies/mL [facility], HIV 1 RNA, QN PCR NOT DETECTED Log copies/mL [facility], Comment: REFERENCE RANGE: NOT DETECTED copies/mL ?NOT DETECTED ??Log copies/mL This test was performed using Real-Time Polymerase Chain Reaction. Reportable range is 20 to 10,000,000 copies/mL (1.30-7.00 Log copies/mL). 05/11/2022 9:42 AM EDT 05/11/2022 9:43 AM EDT Narrative [facility] - 05/14/2022 12:55 AM EDT FASTING:YES FASTING: YES us Toro Perez MD LAB BLOOD ORDERABL ES Final Result [facility] [address], [place] [address] [facility], [address] [place] [address] * Hepatitis C Antibody with Reflex to HCV, RNA, Quantitative, Real-Time PCR (05/11/2022 9:42 AM EDT) Hepatitis C Antibody NON-REACT TAMERA NON-REACT TAMERA [employer] Index 0.08 <1.00 [email or web address] Comment: HCV antibody was non-reactive. There is no laboratory evidence of HCV infection. In most cases, no further action is required. However, if recent HCV exposure is suspected, a test for HCV RNA (test code 55614) is suggested. For additional information please refer to http://education.Thundersoft/faq/LSX49w6 (This link is being provided for informational/ educational purposes only.) Blood Venous blood specimen / Unknown 05/11/2022 9:42 AM EDT 05/11/2022 9:43 AM EDT Narrative [facility] - 05/14/2022 12:55 AM EDT FASTING:YES FASTING: YES Toro Perez MD LAB BLOOD ORDERABL ES Final Result [facility] [address], [place] [address] [facility] [place] [facility] [address] [place] [address] * Hm Colonoscopy (11/07/2020 6:57 AM EDT) Historical Provider HEALTH MAINTENANCE Final Result from Last 3 Months or Most Recently Relevant to Health Maintenance Insurance [facility] C3 Care Teams Commercial Finance Analyst Relationship Specialty Start Date End Date Toro Silva MD [address] [place] [phone] PCP - General Internal Medicine 07/09/19 Grazyna Alvarado [employer] Middleware ArchitectManufacturing Shift Supervisor 08/06/23
--- OUTSIDE RECORDS SUMMARY | 2024-03-16 08:55 | XMS_ITS | Encounter Summary ---
Author Organization [employer] Address [address] [facility] [address] 7t [place] [address] Care Team Providers Care Silver Lap Machine Tender Name Role Phone Toro Silva MD Primary Care Prov ider Reason for Visit * Reason Onset Date Comments PT-1 09/09/2023 Encounter Details Date Type Department Care Team ([facility] st Contact Info) Description 09/09/2023 Telephone [facility] MEDICINE 230 [place], [place] [phone] Toro Silva MD 505 [place] [address] PT-1 Social History Tobacco Use Types Packs/Day [...] Y/N: Yes Provider name [facility] facility [facility]: [facility] Address: [address] [place] [address] [place] [address] Escort needed: yes ( Physician Surgeon) Do you have a wheelchair: Y/N: Yes [...] documented as of this encounter Care Teams Silver Lap Machine Tender Relationship Specialty Start Date End Date Toro Silva MD [address] [place] [address] PCP - General Internal Medicine 07/09/19 Grazyna Alvarado Calender RunnerWaterside Worker 08/06/23 documented as of this encounter
--- OUTSIDE RECORDS SUMMARY | 2024-03-16 08:55 | XMS_ITS | Encounter Summary ---
Author Organization [employer] Address 75 [facility] 7t [place] [address] Care Team Providers Care Vb Net Programmer Name Role Phone Toro Silva MD Primary Care Prov ider Reason for Visit * Reason Comments Med Refill Encounter Details Date Type Department Care Team (Late st Contact Info) Description 07/11/2022 Refill [facility] [address] [place], [place] [phone] Toro Silva MD [address] [place], [place] [phone] Chronic pain syndrome Social History Tobacco Use [...] documented as of this encounter Care Teams Vb Net Programmer Relationship Specialty Start Date End Date Toro Silva MD [address] [place] [address] PCP - General Internal Medicine 07/09/19 Grazyna Alvarado Cash AccountantManagement Trainee 08/06/23 documented as of this encounter
--- OUTSIDE RECORDS SUMMARY | 2024-03-16 08:55 | XMS_ITS | Encounter Summary ---
Author Organization [employer] Address [address] [facility] [address] 7t [place] [address] Care Team Providers Care Nuclear Medicine Officer Name Role Phone Toro Silva MD Primary Care Prov ider Reason for Visit * Reason Onset Date Comments Med Refill 09/29/2023 Encounter Details Date Type Department Care Team ([facility] st Contact Info) Description 09/29/2023 Telephone [facility] [address] [place], [place] [phone] Toro Silva MD 505 [place] [address] Med Refill Social History Tobacco Use Types [...] 100 MG capsule To be sent to: [facility] documented in this encounter Plan of Treatment Not on file documented as of this encounter Visit Diagnoses Not on filedocumented in this encounter Additional Health Concerns Assessment Noted Time PHQ-9 Depression Total Score: 11 023 9:53 AM EST documented as of this encounter Care Teams Nuclear Medicine Officer Relationship Specialty Start Date End Date Toro Silva MD [address] [place] [id number] PCP - General Internal Medicine 07/09/19 Grazyna Alvarado Mold ShakerDrip Molder 08/06/23 documented as of this encounter
--- OUTSIDE RECORDS SUMMARY | 2024-03-16 08:55 | XMS_ITS | Encounter Summary ---
Author Organization [employer] Address [address] [facility] [address] 7t [place] [address] Care Team Providers Care Svp Group Director Name Role Phone Toro Silva MD Primary Care Prov ider Reason for Visit * Reason Comments Med Refill Encounter Details Date Type Department Care Team ([facility] st Contact Info) Description 09/29/2023 Refill [facility] & PEDS [address] [place], [place] [phone] Sophy Rubi MD [address] [place] [address] Neuropathy Social History Tobacco Use Types Packs/Day [...] documented as of this encounter Care Teams Svp Group Director Relationship Specialty Start Date End Date Toro Silva MD [address] [place] [id number] PCP - General Internal Medicine 07/09/19 Grazyna Alvarado Flux Core WelderSugar Laboratory Assistant 08/06/23 documented as of this encounter
--- OUTSIDE RECORDS SUMMARY | 2024-03-16 08:55 | XMS_ITS | Encounter Summary ---
Author Organization [employer] Address [address] [facility] [address] 7t [place] [address] Care Team Providers Care Fish And Wildlife Scientific Aid Name Role Phone Toro Silva MD Primary Care Prov ider Encounter Details Date Type Department Care Team (Late st Contact Info) Description 05/22/2023 Orders Only [facility] [address] [place], [place] [phone] ProviderHarley MD Social History Tobacco Use Types [...] documented as of this encounter Care Teams Fish And Wildlife Scientific Aid Relationship Specialty Start Date End Date Toro Silva MD [address] [place] [id number] PCP - General Internal Medicine 07/09/19 Grazyna Alvarado Plating EngineerRailway Yard Assistant 08/06/23 documented as of this encounter
[2024-03-16 09:00] VITALS: BMI 40.4
[2024-03-16] MEDS: Lactated Ringers 1,000 ML 50 ML IVCONT (09:15)
[2024-03-16 09:33] LABS: Glucose, Whole Blood 142 mg/dL (60-115)
--- NOTE | 2024-03-16 09:41 | P.HPSUR_ITS ---
Pre-Procedural Eval Section A - 24 Hr Update-Section A only Date of Service: 03/16/24 Section B - Complete if H&P > 30 days Chief Complaint: Chronic idiopathic constipation Relevant Family History (Specify if Yes): No Relevant Social History: None Present Medications: see Short Stay Collaborative assessment Medical History: Significant History (Benign skin lesion of cheek Pulmonary embolism Gastritis SUSY (acute kidney injury) Enteritis Epigastric pain Physical deconditioning SOB (shortness of breath) Colon cancer screening Dysphagia Uninodular goiter (nontoxic) Right knee pain Chronic pain Type 2 diabetes mellitus with polyneuropathy Upper) History of Previous Operations: Relevant previous surgery/procedure and date(s) (History of excision of lesion (~09/09/23) History of carpal tunnel surgery History of right knee joint replacement History of esophagogastroduodenoscopy (EGD) History of cardiac catheterization Hx of knee surgery History of coronary artery stent placement) Allergies: Allergies Allergy/AdvReac Type Severity Reaction Status Date / Time shellfish derived Allergy Severe SWOLLEN Verified 03/16/24 09:32 THROAT apple [Apple] Allergy Intermediate SWELLING Verified 03/16/24 09:32 egg [Egg] Allergy Intermediate HIVES Verified 03/16/24 09:32 influenza virus vaccine, Allergy Intermediate SWELLING Verified 03/16/24 09:32 specific [Influenza Virus Vacc,Specific] Penicillins Allergy Mild RASH Verified 03/16/24 09:32 lisinopril [Lisinopril] Allergy Unknown UNKNOWN Verified 03/16/24 09:32 nifedipine [From Procardia] Allergy Unknown UNKNOWN Verified 03/16/24 09:32 Review of Systems Sugical H&P ROS: Negative: Constitution, Cardiovascular, Respiratory, Neurological, Psychiatric, Hem-Onc, Allergic/Immunologic, Gastrointestinal, Genitourinary, Musculoskeletal, Integumentary, Endocrine and Eyes/Ear s/Nose/Throat Exam Surgical H&P Exam: Normal: HEENT, Normal: Heart, Normal: Lungs, Normal: Extremities, Normal: Abdomen, Normal: Skin and Normal: Neurological Plan Diagnosis/Plan: Unchanged I have reviewed the history and physical and performed a pertinent physical examination on my patient. No changes have occurred unless specified. Time Spent With Patient Time: Total time managing care of this patient today ____ minutes.
--- NOTE | 2024-03-16 10:17 | P.OPN-COLO_ITS ---
Colonoscopy Operative Note Operative Note Date of Service: 03/16/24 Narrative: Operative Information Procedure Description: Colonoscopy Indication: screening Anesthesia: MAC COLONOSCOPY Instrument: Olympus variable stiffness pediatric scope 190L Colonoscopy Monitoring: Vital signs and clinical assessment, continuous EKG monitoring, Pulse oximetry, Carbon Dioxide monitoring and blood pressure monitoring were done throughout the procedure. Colon withdrawal time was 8 minutes. Procedure: The patient was placed in the left lateral decubitis position and pre-procedure medications were administered. After a digital rectal examination of the ano-rectum, the video colonoscope was inserted into the rectum and advanced through the colon to the cecum/TI. The colonoscope was slowly withdrawn in a retrograde panoramic fashion and the colon mucosa was carefully examined including a retroflexed view of the rectum. Findings and interventions are described below. Procedure Difficulty: easy Findings: Terminal Ileum-not intubated Cecum: 5-8 mm flat polyp lifted with elview injection and removed with cold snare Ascending Colon: normal Transverse Colon -normal Descending Colon:normal Sigmoid Colon: normal Rectum: Retroflexion with small internal hemorrhoids seen, grade I Anorectum - normal Intervention: cold snare and eleview injection Colon preparation: [place] Bowel Preparation Scale Right colon; 2 Transverse colon: 2 Left colon; 2 (0 = Unprepared colon segment with mucosa not seen due to solid stool that cannot be cleared. 1 = Portion of mucosa of the colon segment seen, but other areas of the colon segment not well seen due to staining, residual stool and/or opaque liquid. 2 = Minor amount of residual staining, small fragments of stool and/or opaque liquid, but mucosa of colon segment seen well. 3 = Entire mucosa of colon segment seen well with no residual staining, small fragments of stool or opaque liquid) Impression and Post Procedure Diagnosis: colon polyp x 1 internal hemorrhoids Plan: High fiber diet leaflet Avoid straining at stool, epsom salts and sitz bath, anusol supps or cream Repeat Colonoscopy in 5 years due to polyp history or earlier if clinically indicated can restart anti coagulation tomorrow Above findings were reviewed with the patient and relevant handouts were provided if indicated.
[2024-03-16 10:22] VITALS: BP 121/72; PULSE 95; RESP 15; TEMP 36.3; O2SAT 95
[2024-03-16 10:37] VITALS: BP 136/77; PULSE 95; RESP 15; O2SAT 96
[2024-03-16 10:53] VITALS: BP 124/82; PULSE 87; RESP 15; TEMP 36.1; O2SAT 96
== END 2024-03-16 12:23 | disposition home or self-care (01) ==
PROVIDERS: PCP Internal Medicine; Visit Provider Internal Medicine Gastroenterology
PROC: 0DJD8ZZ Inspection of Lower Intestinal Tract, Via Natural or Artificial Opening Endoscopic (ICD-10-PCS; CPT 45378; principal; 2024-03-16 10:50)
DX: Z12.11 Encounter for screening for malignant neoplasm of colon (principal); D12.0 Benign neoplasm of cecum; K64.0 First degree hemorrhoids; K59.04 Chronic idiopathic constipation; K21.9 Gastro-esophageal reflux disease without esophagitis; I26.99 Other pulmonary embolism without acute cor pulmonale; N17.9 Acute kidney failure, unspecified; I13.0 Hypertensive heart and chronic kidney disease with heart failure and stage 1 through stage 4 chronic kidney disease, or unspecified chronic kidney disease; E11.22 Type 2 diabetes mellitus with diabetic chronic kidney disease; N18.30 Chronic kidney disease, stage 3 unspecified; I69.954 Hemiplegia and hemiparesis following unspecified cerebrovascular disease affecting left non-dominant side; I11.0 Hypertensive heart disease with heart failure; I50.9 Heart failure, unspecified; Z79.85 Long-term (current) use of injectable non-insulin antidiabetic drugs; Z79.84 Long term (current) use of oral hypoglycemic drugs; Z79.4 Long term (current) use of insulin; Z79.899 Other long term (current) drug therapy; Z88.0 Allergy status to penicillin; Z88.8 Allergy status to other drugs, medicaments and biological substances; Z88.7 Allergy status to serum and vaccine
CPT/HCPCS: 45385; 45381; 82947; 88305; J2003; J2704

== ENCOUNTER → 2024-03-16 08:38 | Outpatient (BNV) | payer MEDICAID, SELFPAY | PROVIDERS: PCP Internal Medicine; Visit Provider Internal Medicine Gastroenterology | DX: Z12.11 Encounter for screening for malignant neoplasm of colon (principal); Z86.0101 Personal history of adenomatous and serrated colon polyps; D12.0 Benign neoplasm of cecum; K64.0 First degree hemorrhoids | CPT/HCPCS: 45381; 45385 ==

== ENCOUNTER 2024-04-06 13:11 | Outpatient (AMB) | payer MEDICAID, SELFPAY ==
[2024-04-06 13:16] VITALS: BP 126/70; PULSE 111; O2SAT 96; BMI 40.9
--- NOTE | 2024-04-06 13:16 | A.OFFVIS_ITS ---
Vital Signs 04/06/24 13:16 Height 5 ft 4 in Weight 238 lb 1.588 oz BMI 40.9 BP 126/70 Blood Pressure Location Rt brachial Position Sitting Pulse 111 H Pulse Source Pulse Oximeter Pulse Oximetry (%) 96 Oxygen Delivery Method Room Air Intake Visit Reasons: DM Intake Note: Patient presents today for a follow-up on Type 2 Diabetes Mellitus: Last Diabetic eye exam was on: DUE Last Podiatry exam was on: Patient does not see a Corporate Claims Examiner Most recent HbA1c: 6.9%, 04/06/2024 Random Glucose- 108 mg/dL, Today Client Relations Associate Required: Yes Client Relations Associate Language: Carpentry Supervisor Services: Client Relations Associate Present Client Relations Associate Name: ILIANA Adler/GWEN CONTRERAS Information Interpreted: non-clinical & clinical Accompanied by: Significant Other Allergies shellfish derived Allergy (Severe, Verified 04/06/24 13:18) SWOLLEN THROAT apple [Apple] Allergy (Intermediate, Verified 04/06/24 13:18) SWELLING egg [Egg] Allergy (Intermediate, Verified 04/06/24 13:18) HIVES influenza virus vaccine, specific [Influenza Virus Vacc,Specific] Allergy (Intermediate, Verified 04/06/24 13:18) SWELLING Penicillins Allergy (Mild, Verified 04/06/24 13:18) RASH lisinopril [Lisinopril] Allergy (Unknown, Verified 04/06/24 13:18) UNKNOWN nifedipine [From Procardia] Allergy (Unknown, Verified 04/06/24 13:18) UNKNOWN Medication List - Last Reconciled 04/06/24 by Joslyn Moseley MD acetaminophen (Tylenol Extra Strength) 500 mg PO Q6H PRN albuterol sulfate 2.5 mg inhalation QID albuterol sulfate 90 mcg/actuation 2 puffs inhalation Q4-6H PRN atorvastatin 80 mg PO BEDTIME blood-glucose meter (FreeStyle Lite Meter kit) As directed 3x/day carvedilol 25 mg PO BID chlorthalidone 25 mg PO QAM dulaglutide (Trulicity) 3 mg (0.5 mL) subcut QWEEK 28 days duloxetine 60 mg PO QAM empagliflozin (Jardiance) 25 mg PO QAM evolocumab (Repatha SureClick) 140 mg subcut Q2W famotidine 20 mg PO QAM ferrous sulfate (FeroSul) 325 mg PO QPM fluticasone propionate 50 mcg/actuation 1 spray intranasal DAILY fluticasone propionate 110 mcg/actuation (Flovent HFA) 1 puff PO BID FreeStyle Lancets (lancets) four times daily NS FreeStyle Trell 3 Plus Sensor (blood-glucose sensor) As directed NS FreeStyle Trell 3 [place] (blood-glucose meter,continuous) As directed NS FreeStyle Lite Strips (blood sugar diagnostic) four times daily NS furosemide 20 mg PO DAILY gabapentin 100 mg PO TID insulin glargine (Lantus Solostar U-100 Insulin) 10 units (0.1 mL) subcut QAM 30 days lancets (TRUEplus Lancets) As directed linaclotide (Linzess) 290 mcg PO QAM lisinopril 40 mg PO QAM loratadine (Allergy Relief (loratadine)) 10 mg PO DAILY meclizine 12.5 mg PO TID PRN naloxone 4 mg/actuation (Narcan) 1 spray intranasal ONCE PRN pantoprazole 40 mg PO BID pen needle, diabetic (Pentips Pen Needle) once daily prazosin 2 mg PO BEDTIME quetiapine ER 300 mg PO DAILY@1700 rivaroxaban (Xarelto) 2.5 mg PO BID simethicone (Gas Relief (simethicone)) 180 mg PO QID tirzepatide (Mounjaro) 5 mg (0.5 mL) subcut QWEEK topiramate 50 mg PO BEDTIME trazodone 150 - 300 mg PO BEDTIME PRN [Wheelchair As directed] HPI Comments Details: This is a 58-year-old male presenting for thyroid nodule and for type 2 diabetes. Medical history: Hyperlipidemia, h/o CVA Current medications: Trulicity 3mg weekly, Lantus 10 units nightly, Jardiance 25mg daily. Reports compliance A1C today is 6.9%. He has a traditional freestyle glucometer but given that he is on insulin and checks glucose 4x/day CGM would be preferable. On atorvastatin 80 mg daily, PCSK9 inhibitor Ruel Denies neuropathy Has seen eye dr stone was referred to [place]. Wherever he was referred to is apparently closed and he has not been back in touch with [facility] ROS CONSTITUTIONAL: Denies weight loss, fever and chills. HEENT: Denies changes in vision and hearing. RESPIRATORY: Denies SOB and cough. CV: Denies palpitations and CP GI: Denies abdominal pain, nausea, vomiting and diarrhea. : Denies dysuria and urinary frequency. MSK: Denies new myalgia and joint pain. SKIN: Denies rash and pruritus. NEUROLOGICAL: Denies headache PSYCHIATRIC: Denies recent changes in mood. PHYSICAL EXAM: GENERAL: Alert and oriented x 3. NAD EYES: EOMI. Anicteric. HENT: Moist mucous membranes. No scleral icterus. No cervical lymphadenopathy. LUNGS: Clear to auscultation bilaterally. CARDIOVASCULAR: Regular rate and rhythm. No murmur. No JVD. ABDOMEN: Soft, non-tender +bs EXTREMITIES: No edema. Non-tender. SKIN: No rashes or lesions. Warm. NEUROLOGIC: No focal neurological deficits. CN II-XII grossly intact PSYCHIATRIC: Cooperative. Appropriate mood and affect [facility] Medical History Benign skin lesion of cheek Pulmonary embolism Gastritis SUSY (acute kidney injury) Enteritis Epigastric pain Physical deconditioning SOB (shortness of breath) Colon cancer screening Dysphagia Uninodular goiter (nontoxic) Right knee pain Chronic pain Type 2 diabetes mellitus with polyneuropathy Upper abdominal pain H. pylori infection Obesity due to excess calories Blind right eye Goiter Cancer of eye Chronic kidney disease, stage 3 Hemiparesis affecting left side as late effect of cerebrovascular accident CHF (congestive heart failure) History of poliomyelitis GERD (gastroesophageal reflux disease) Morbid obesity Mood disorder Nasal polyps Angina of effort ARTEM (obstructive sleep apnea) Hemiplegia affecting dominant side Asthma Other pulmonary embolism and infarction Left ventricular hypertrophy Syncope Type 2 diabetes mellitus with hyperglycemia, with long-term current use of insulin Hyperlipidemia LDL goal <70 Essential hypertension Surgical History History of excision of lesion (~09/09/23) History of carpal tunnel surgery History of right knee joint replacement History of esophagogastroduodenoscopy (EGD) History of cardiac catheterization Hx of knee surgery History of coronary artery stent placement Family History Father Stroke Brain cancer CVD (cardiovascular disease) Diabetes Mother Diabetes Social History Household Members: Significant Other Household Members 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 Housing: Apartment Are you a primary childcare center administrator to a significant other at home: No Do you presently have visiting nurse or other home services: No Alcohol intake: never Patient Tobacco Use Status: Never used Tobacco Advance Directives Date on File: 11/08/20 service: No Physical Exam Vital Signs: Last Vital Signs Pulse 111 H 04/06/24 13:16 BP 126/70 04/06/24 13:16 Pulse Ox 96 04/06/24 13:16 Oxygen Delivery Method Room Air 04/06/24 13:16 BMI result Body Mass Index 40.9 Results AMB Hemoglobin A1c AMB Hemoglobin A1c 6.9 % Last Edit by ILIANA Adler on 04/06/24 13:34 Results Reviewed Results Reviewed: Laboratory Last Values Glucose (Clinic) 108 mg/dL (60-115) 04/06/24 13:24 Assessment & Plan Assessment & Plan (1) Type 2 diabetes mellitus with polyneuropathy: Code(s): E11.42 - Type 2 diabetes mellitus with diabetic polyneuropathy Category: Medical Plan: Controlled on current medications. Will try to transition to [facility] as he has gained 10 pounds since Dec. If not can increase him to 4.5 mg trulicity CGM ordered Urged him to make an appt with eye doctor to get UTD and get new referral for specialist. He will return in 3 months or sooner as needed Orders: Orders Lipid Panel Today E11.42 - Type 2 diabetes mellitus with diabetic polyneuropathy Hemoglobin A1c Today E11.42 - Type 2 diabetes mellitus with diabetic polyneuropathy Comprehensive Met. Panel Today E11.42 - Type 2 diabetes mellitus with diabetic polyneuropathy Microalbumin, Random (w Creat) Today E11.42 - Type 2 diabetes mellitus with diabetic polyneuropathy AMB Hemoglobin A1c Today E11.65 - Type 2 diabetes mellitus with hyperglycemia, Z79.4 - snf (current) use of insulin Medications: New tirzepatide (Mounjaro) 5 mg (0.5 mL) subcut QWEEK 6 mL 3RF E11.42 - Type 2 diabetes mellitus with diabetic polyneuropathy FreeStyle Trell 3 Plus Sensor (blood-glucose sensor) As directed 6 ea 3RF NS E11.65 - Type 2 diabetes mellitus with hyperglycemia, Z79.4 - ad terminal makeup operator (current) use of insulin FreeStyle Lancets (lancets) four times daily 200 ea 3RF NS E11.42 - Type 2 diabetes mellitus with diabetic polyneuropathy FreeStyle Trell 3 [place] (blood-glucose meter,continuous) As directed 1 ea 0RF NS E11.65 - Type 2 diabetes mellitus with hyperglycemia, Z79.4 - snf (current) use of insulin Changed From pen needle, diabetic (Pentips Pen Needle) As directed 50 ea To pen needle, diabetic (Pentips Pen Needle) once daily 100 ea 3RF From blood sugar diagnostic (FreeStyle Lite Strips) As directed 10 ea diabetes mellitus E11.65 - Type 2 diabetes mellitus with hyperglycemia, Z79.4 - snf (current) use of insulin To FreeStyle Lite Strips (blood sugar diagnostic) four times daily 200 ea 3RF diabetes mellitus NS E11.65 - Type 2 diabetes mellitus with hyperglycemia, Z79.4 - ad terminal makeup operator (current) use of insulin On Hold dulaglutide (Trulicity) Hold Comment: Doctor's Order 3 mg (0.5 mL) subcut QWEEK 28 days 2 mL 3RF Coding Level of Care Code Est Pt Level 4 (30409) Complex EM visit Add On G2211 Diagnoses Type 2 diabetes mellitus with polyneuropathy E11.42
[2024-04-06 13:29] LABS: Glucose, Whole Blood 108 mg/dL (60-115)
--- OUTSIDE RECORDS SUMMARY | 2024-04-06 15:44 | XMS_ITS | Encounter Summary ---
Author Organization [employer] Address 75 [facility] 7t [place] [address] Care Team Providers Care Deputy Clerk Of Superior Court Name Role Phone Toro Silva MD Primary Care Prov ider Reason for Visit * Reason Onset Date Comments c/b request 2022 Encounter Details Date Type Department Care Team ([facility] st Contact Info) Description 2022 Telephone [facility] CH[facility] MED & PEDS [address] [place], [place] [phone] Toro Silva MD [address] [place] [address] c/b request Social History Tobacco Use Types [...] a call back. TC placed to [facility] Gastro no answer left a message for Joan on voice mail gave [facility] direct number for a call back TC placed to pt for a third time and another message was left for him to contact the [facility] nurses. Several messages also left at Gastro office with no call back will send to PCP as FYI. * Telephone Encounter - Carolyn Cha RN - 10/19/2022 11:24 AM EDT Tc from [place] with [facility] requesting a call in regards to pt upcoming colonoscopy appointment on 10/21 Please contact joan at [phone] TC returned to [place] and a message was left for a [...] a call back. TC placed to [facility] Gastro no answer left a message for Joan on voice mail gave [facility] direct number for a call back * Telephone Encounter - Gianna Antonio - 2022 10:37 AM EDT Tc from [place] with [facility] requesting a call in regards to pt upcoming colonoscopy appointment on 10/21 Please contact joan at [phone] documented in this encounter Plan of Treatment Not on file documented as of this encounter Visit Diagnoses Not on filedocumented in this encounter Additional Health Concerns Assessment Noted Time PHQ-9 Depression Total Score: 0 07/02/19 9:45 AM EDT documented as of this encounter Care Teams Deputy Clerk Of Superior Court Relationship Specialty Start Date End Date Toro Silva MD [address] [place] [id number] PCP - General Internal Medicine 07/09/19 Grazyna Alvarado Furnace ErectorShip Purser 08/06/23 documented as of this encounter
--- OUTSIDE RECORDS SUMMARY | 2024-04-06 15:44 | XMS_ITS | Encounter Summary ---
Author Organization [employer] Address [address] [facility] [address] 7[address] [place] [address] Care Team Providers Care Alarm Security Or Surveillance Monitor Name Role Phone Toro Silva MD Primary Care Prov ider Reason for Visit * Reason Comments Med Refill Encounter Details Date Type Department Care Team ([facility] st Contact Info) Description 03/20/2024 Refill [facility] MED & PEDS [address] [place], [place] [phone] Toro Silva MD [address] [place] [address] Neuropathy; Iron deficiency anemia secondary to inadequate dietary iron intake Social History Tobacco Use Types Packs/Day Years [...] Diagnoses Diagnosis Neuropathy Mononeuritis of unspecified site Iron deficiency anemia secondary to inadequate dietary iron intake documented in this encounter Additional Health Concerns Assessment Noted Time PHQ-9 Depression Total Score: 11 023 9:53 AM EST documented as of this encounter Care Teams Alarm Security Or Surveillance Monitor Relationship Specialty Start Date End Date Toro Silva MD [address] [place] [address] PCP - General Internal Medicine 07/09/19 Grazyna Alvarado Science Job TitlesDirector Medical Safety 08/06/23 documented as of this encounter
--- OUTSIDE RECORDS SUMMARY | 2024-04-06 15:44 | XMS_ITS | Encounter Summary ---
Author Organization [employer] Address 75 [facility] 7t [place] [address] Care Team Providers Care Manager Lvn Name Role Phone Toro Silva MD Primary Care Prov ider Encounter Details Date Type Department Care Team (Latest Contact Info) Description 04/21/2019 Abstract [facility] CONVERSIONS Dental, Provider, DDS Social History [...] on filedocumented in this encounter Care Teams Manager Lvn Relationship Specialty Start Date End Date Toro Silva MD [address] [place] [address] PCP - General Internal Medicine 07/09/19 Grazyna Alvarado Physician Support CoordinatorPipe Smoker Machine Operator 08/06/23 documented as of this encounter
--- OUTSIDE RECORDS SUMMARY | 2024-04-06 15:44 | XMS_ITS | Encounter Summary ---
Author Organization [employer] Address [address] [facility] [address] [place] [address] Care Team Providers Care Electrical Maintenance Technician Name Role Phone Toro Silva MD Primary Care Prov ider Reason for Visit * Reason Onset Date Comments Durable Medical Equipment 12/20/2023 Encounter Details Date Type Department Care Team ([facility] st Contact Info) Description 12/20/2023 Telephone [facility] MEDICINE [address] [place], [place] [phone] Toro Silva MD [address] [place] [address] Durable Medical Equipment Social History Tobacco Use [...] documented as of this encounter Care Teams Electrical Maintenance Technician Relationship Specialty Start Date End Date Toro Silva MD [address] [place] [id number] PCP - General Internal Medicine 07/09/19 Grazyna Alvarado Employment CoachHotel Valet Attendant 08/06/23 documented as of this encounter
--- OUTSIDE RECORDS SUMMARY | 2024-04-06 15:44 | XMS_ITS | Encounter Summary ---
Author Organization [employer] Address [address] 7t [place] [address] Care Team Providers Care Architecture Faculty Member Name Role Phone Toro Silva MD Primary Care Prov ider Reason for Visit * Reason Onset Date Comments Med Refill 09/29/2023 Encounter Details Date Type Department Care Team ([facility] st Contact Info) Description 09/29/2023 Telephone [facility] MEDICINE [address] [place], [place] [phone] Toro Silva MD 505 [place] [address] Med Refill Social History Tobacco Use Types [...] capsule To be sent to: [facility] Pharm[facility] documented in this encounter Plan of Treatment Not on file documented as of this encounter Visit Diagnoses Not on filedocumented in this encounter Additional Health Concerns Assessment Noted Time PHQ-9 Depression Total Score: 11 023 9:53 AM EST documented as of this encounter Care Teams Architecture Faculty Member Relationship Specialty Start Date End Date Toro Silva MD [address] [place] [address] PCP - General Internal Medicine 07/09/19 Grazyna Alvarado Leather PatcherManager Regional 08/06/23 documented as of this encounter
--- OUTSIDE RECORDS SUMMARY | 2024-04-06 15:44 | XMS_ITS | Encounter Summary ---
Author Organization [employer] Address [address] [place] [address] Care Team Providers Care Nut Blanker Operator Name Role Phone Toro Silva MD Primary Care Prov ider Reason for Visit * Reason Onset Date Comments PT-1 01/17/2024 Encounter Details Date Type Department Care Team ([facility] st Contact Info) Description 01/17/2024 Telephone [facility] MEDICINE [address] [place] [address] Toro Silva MD [address] [place] [address] PT-1 Social History Tobacco Use Types Packs/Day [...] Y/N: Yes Provider name or facility name: [facility] Escort needed: Y/N: Yes Do you have [...] documented as of this encounter Care Teams Nut Blanker Operator Relationship Specialty Start Date End Date Toro Silva MD [address] [place] [address] PCP - General Internal Medicine 07/09/19 Grazyna Alvarado Senior Tax ManagerTouch Up Worker 08/06/23 documented as of this encounter
--- OUTSIDE RECORDS SUMMARY | 2024-04-06 15:44 | XMS_ITS | Encounter Summary ---
Author Organization [employer] Address [address] [place] [address] Care Team Providers Care Admissions Nurse Name Role Phone Toro Silva MD Primary Care Prov ider Encounter Details Date Type Department Care Team (Late st Contact Info) Description 03/16/2024 Orders Only GENERIC EXTERNAL DATA DEPARTMENT Provider, Generic External Data Social History Tobacco Use Types Packs/Day Years [...] Diagnosis Comments HEMATOXYLIN AND EOSIN STAIN Routine 03/16/2024 10:05 AM EST GLUCOSE, WHOLE BLOOD Routine 03/16/2024 9:21 AM EST documented in this encounter Results * Hematoxylin and Eosin Stain (03/16/2024 10:05 AM EST) 03/16/2024 10:0 5 AM EST 03/16/2024 10:21 AM EST [facility] - 03/17/2024 3:03 PM EST ----- ------- Name: Davon Gonzalez ? Age/Sex: 58/M ? : 1965 Unit#: [id number] ?? Attend Dr: Valente Drake MD ?Re03/16/24 ?Status: [place] [facility] ? Location: [facility].SSS ?Disch: ? ----- ------- SPEC : [id number] ?RECD: 03/16/24 ? STATUS: ??SOUT ? REQ NUM: [id number] ? ARLYN: 03/16/24-1004 ? SUBM DR: Valente Drake MD ? ENTERED: ??03/16/24 ?SP TYPE: Surgical ? OTHR DR: Toro Silva MD ORDERED: ??HE Stain/3, Gross Micro L4 ? Diagnosis ?? Cecum, polypectomy: ??Tubular adenoma; negative for high-grade dysplasia or carcinoma. ?Clinical History Pre-Op Dx: ??Chronic idiopathic constipation Post-Op Dx: Polyp ?Microscopic Description Microscopic sections reviewed. ? Material Received ?? Cecal polyp ? Gross Description Received in formalin labeled ?cecal polyp? are 2 pale, sequeira and sequeira- pink irregular tissue fragments measuring 0.2 and 0.25 cm, submitted in toto in a cassette labeled Guille YO Copies To: ?? Toro Silva MD ?? [facility] ?? [address] ?? [place] [address] ?? [phone] ?? Valente Drake MD ?? [facility] ?? [address] ?? [place] [address] ?? [phone] ----- ------- Signed (signature on file) Sidney Ruiz MD 03/17/24 1503 ? ----- ------- ? END OF REPORT ? us Generic External Data Provider LAB BLOOD ORDERAB LES Final Result [facility] [address] [facility] [place] [address] [phone] * (ABNORMAL) Glucose, Whole Blood (03/16/2024 9:21 AM EST) Glucose, Whole Blood 142(H) 60 - 115 mg/dL [facility] Comment:METER #: [id number] 03/16/2024 9:21 AM EST 03/16/2024 9:33 AM EST us Generic External Data Provider LAB BLOOD ORDERAB LES Final Result [facility] [address] [place] [address] [phone] documented in this encounter Visit Diagnoses Not on filedocumented in this encounter Additional Health Concerns Assessment Noted Time PHQ-9 Depression Total Score: 11 023 9:53 AM EST documented as of this encounter Care Teams Admissions Nurse Relationship Specialty Start Date End Date Toro Silva MD [address] [place] [address] PCP - General Internal Medicine 07/09/19 Grazyna Alvarado Office AnalystRetort Feeder Ground Bone 08/06/23 documented as of this encounter
--- OUTSIDE RECORDS SUMMARY | 2024-04-06 15:44 | XMS_ITS | Clinical Summary ---
Demographics Address [address] [place] [address] [address] [facility] [address] Home Phone Home Phone Preferred Language es Marital Status Unknown Lutheran Affiliation Unknown Race Unknown Ethnic Group Unknown Author Organization [facility], Address [address] [place] [address] [place] [address] Phone Care Team Providers Care Mill Beam Fitter Name Role Phone Toro Bravo Primary Care Provider [phone] Allergies Active Allergy Reactions Criticality Noted Date [...] 0 Active ergocalciferol (VITAMIN D-2) 1.25 MG (82433 UT) capsule TAKE 1 CAPSULE BY MOUTH [...] to complete this topic Insurance [address] [place] [address] [place] [address] [place] [address] * Guarantor: Davon Gonzalez Account Type Relation to Patient Date of Phone Billing Address Personal/Family Self 1965 [address] [place] [address] Care Teams Mill Beam Fitter Relationship Specialty Start Date End Date Toro Bravo PCP - General Internal Medicine 09/06/19
--- OUTSIDE RECORDS SUMMARY | 2024-04-06 15:44 | XMS_ITS | Encounter Summary ---
Author Organization [email or web address] Address [address] [facility] 7t [place] [address] Care Team Providers Care Sales Executive Name Role Phone Toro Silva MD Primary Care Prov ider Reason for Visit * Reason Comments Med Refill Encounter Details Date Type Department Care Team (Late st Contact Info) Description 07/11/2022 Refill [facility] MEDICINE 230 [place], [place] [phone] Toro Silva MD [address] [place], [place] [phone] Chronic pain syndrome Social History Tobacco Use [...] documented as of this encounter Care Teams Sales Executive Relationship Specialty Start Date End Date Toro Silva MD [address] [place] [address] PCP - General Internal Medicine 07/09/19 Grazyna Alvarado Pasteuriser OperatorEtl Lead 08/06/23 documented as of this encounter
--- OUTSIDE RECORDS SUMMARY | 2024-04-06 15:44 | XMS_ITS | Encounter Summary ---
Author Organization [employer] Address [address] 7[address] [place] [address] Care Team Providers Care Frickertron Checker Name Role Phone Toro Silva MD Primary Care Prov ider Encounter Details Date Type Department Care Team (Late st Contact Info) Description 04/06/2024 Orders Only GENERIC EXTERNAL DATA DEPARTMENT Provider, [...] Procedure Name Priority Date/Time Associated Diagnosis Comments GLUCOSE, WHOLE BLOOD Routine 04/06/2024 1:24 PM EST documented in this encounter Results * Glucose, Whole Blood (04/06/2024 1:24 PM EST) Glucose, Whole Blood 108 60 - 115 mg/dL [facility] Comment:METER #: [id number] Testing performed in the Endocrinology Department [address] , [address], [facility]. 04/06/2024 1:24 PM EST 04/06/2024 1:29 PM EST us Generic External Data Provider LAB BLOOD ORDERAB LES Final Result [facility] [address] [place] [address] [phone] documented in this encounter Visit Diagnoses Not on filedocumented in this encounter Additional Health Concerns Assessment Noted Time PHQ-9 Depression Total Score: 11 023 9:53 AM EST documented as of this encounter Care Teams Frickertron Checker Relationship Specialty Start Date End Date Toro Silva MD [address] [place] [address] PCP - General Internal Medicine 07/09/19 Grazyna Alvarado Jacquard Card CutterCustomer Relations Advisor 08/06/23 documented as of this encounter
--- OUTSIDE RECORDS SUMMARY | 2024-04-06 15:44 | XMS_ITS | Encounter Summary ---
Author Organization [employer] Address [address] [facility] 7t [place] [address] Care Team Providers Care Mobile Web Application Developer Name Role Phone Toro Silva MD Primary Care Prov ider Reason for Visit * Reason Comments Med Refill Encounter Details Date Type Department Care Team (Late st Contact Info) Description 03/03/2022 Refill [facility]EDS [address] [place] [address] Toro Silva MD [address] [place] [address] Chronic pain syndrome Social History Tobacco Use [...] syndrome documented in this encounter Care Teams Mobile Web Application Developer Relationship Specialty Start Date End Date Toro Silva MD [address] [place] [address] PCP - General Internal Medicine 07/09/19 Grazyna Alvarado Coal Conveyor OperatorClient Support Analyst 08/06/23 documented as of this encounter
--- OUTSIDE RECORDS SUMMARY | 2024-04-06 15:44 | XMS_ITS | Encounter Summary ---
Author Organization [employer] Address [address] 7[address] [place] [address] Care Team Providers Care Waterfront Director Name Role Phone Toro Silva MD Primary Care Prov ider Reason for Visit * Reason Onset Date Comments Med Refill 08/12/2022 Encounter Details Date Type Department Care Team ([facility] st Contact Info) Description 08/12/2022 Telephone [facility] MED [facility] PEDS [address] [place], [place] [phone] Toro Silva MD [address] [place] [address] Med Refill Social History Tobacco Use Types [...] documented as of this encounter Care Teams Waterfront Director Relationship Specialty Start Date End Date Toro Silva MD [address] [place] [address] PCP - General Internal Medicine 07/09/19 Grazyna Alvarado Deputy Of Counter IntelligenceCustomer Sales Specialist 08/06/23 documented as of this encounter
--- OUTSIDE RECORDS SUMMARY | 2024-04-06 15:44 | XMS_ITS | Encounter Summary ---
Author Organization [employer] Address [address] [place] [address] Care Team Providers Care Continuous Miner Operator Helper Name Role Phone Toro Silva MD Primary Care Prov ider Reason for Visit * Reason Comments Med Refill Encounter Details Date Type Department Care Team ([facility] st Contact Info) Description 04/03/2024 Refill [facility] MED & PEDS [address] [place], [place] [phone] Toro Silva MD [address] [place] [address] CKD stage 3 due to type 2 diabetes mellitus (CMS/HCC) Social History Tobacco Use Types Packs/Day Years [...] as of this encounter Visit Diagnoses Diagnosis CKD stage 3 due to type 2 diabetes mellitus (CMS/HCC) documented in this encounter Additional Health Concerns Assessment Noted Time PHQ-9 Depression Total Score: 11 023 9:53 AM EST documented as of this encounter Care Teams Continuous Miner Operator Helper Relationship Specialty Start Date End Date Toro Silva MD [address] [place] [address] PCP - General Internal Medicine 07/09/19 Grazyna Alvarado Marketing ClerkLap Checker 08/06/23 documented as of this encounter
--- OUTSIDE RECORDS SUMMARY | 2024-04-06 15:44 | XMS_ITS | Encounter Summary ---
Author Organization [employer] Address [address] [place] [address] Care Team Providers Care Metal Tube Cutter Name Role Phone Toro Silva MD Primary Care Prov ider Reason for Visit * Reason Onset Date Comments Medication Question 03/07/2024 Encounter Details Date Type Department Care Team ([facility] Contact Info) Description 03/07/2024 Telephone [facility] MED & PEDS [address] [place], [place] [phone] Toro Silva MD [address] [place] [address] Medication Question Social History Tobacco Use Types [...] TC from erum regarding below message . Utility Bill Complaints Investigator sent a secure chat to provider . Per Provider hold 2 days prior procedure, restart 1 day after * Telephone Encounter - Courtney Cortes - 03/07/2024 2:17 PM EST Tc from [facility] [place] [facility] [place] pt is scheduled for colonoscopy on 03/16/24 and Erum would like a call back to advise on holding off on medication Xarelto 2.5 MG tablet Contact Erum [phone] opt 5 documented in this encounter Plan of Treatment Not on file documented as of this encounter Visit Diagnoses Not on filedocumented in this encounter Additional Health Concerns Assessment Noted Time PHQ-9 Depression Total Score: 11 023 9:53 AM EST documented as of this encounter Care Teams Metal Tube Cutter Relationship Specialty Start Date End Date Toro Silva MD [address] [place] [address] PCP - General Internal Medicine 07/09/19 Grazyna Alvarado Unix ArchitectPhoto Editor 08/06/23 documented as of this encounter
--- OUTSIDE RECORDS SUMMARY | 2024-04-06 15:44 | XMS_ITS | Encounter Summary ---
Author Organization [employer] Address [address] 7[address] [place] [address] Care Team Providers Care Asphalt Mixer Name Role Phone Toro Silva MD Primary Care Prov ider Reason for Visit * Reason Comments Med Refill Encounter Details Date Type Department Care Team (Late st Contact Info) Description 03/13/2024 Refill [facility] MEDICINE [address] [place] [address] Toro Silva MD [address] [place], [place] [phone] Primary hypertension Social History Tobacco Use Types [...] documented as of this encounter Care Teams Asphalt Mixer Relationship Specialty Start Date End Date Toro Silva MD [address] [place] [address] PCP - General Internal Medicine 07/09/19 Grazyna Alvarado Power Generating Plant OperatorSurveying Crew Rodman 08/06/23 documented as of this encounter
--- OUTSIDE RECORDS SUMMARY | 2024-04-06 15:44 | XMS_ITS | Encounter Summary ---
Author Organization [employer] Address [address] 7[address] [place] [address] Care Team Providers Care Public Relations Senior Associate Name Role Phone Toro Silva MD Primary Care Prov ider Reason for Visit * Reason Comments Med Refill Encounter Details Date Type Department Care Team (Late st Contact Info) Description 02/22/2024 Refill [facility] MEDICINE [address] [place] [address] Toro Silva MD [address] [place], [place] [phone] Primary hypertension Social History Tobacco Use Types [...] documented as of this encounter Care Teams Public Relations Senior Associate Relationship Specialty Start Date End Date Toro Silva MD [address] [place] [address] PCP - General Internal Medicine 07/09/19 Grazyna Alvarado Importer ExporterBanquet Bartender 08/06/23 documented as of this encounter
--- OUTSIDE RECORDS SUMMARY | 2024-04-06 15:44 | XMS_ITS | Clinical Summary ---
Author Organization [employer] Address [address] [facility] 7t [place] [address] Care Team Providers Care Catering Server Name Role Phone Toro Silva MD Primary [...] 3 024 2024 Active [facility] [place] BLOOD SUGAR FOUR TIMES DAILY 100 each 11 024 Active Alcohol Swabs (Alcohol Prep) 70 % pads USE DIRECTED FOUR TIMES DAILY 100 each 11 024 Active Xarelto 2.5 MG tabletIndications :Pulmonary embolism and infarction (CMS/HCC) TAKE 1 TABLET BY MOUTH TWICE DAILY 60 tablet 3 024 Active topiramate 50 MG tabletIndications :Chronic migraine w/o aura w/o status migrainosus, not intractable TAKE 1 TABLET BY MOUTH AT BEDTIME 30 tablet 7 024 2024 Active gabapentin (Neurontin) 100 MG capsuleIndication s:Neuropathy TAKE 1 CAPSULE BY MOUTH THREE TIMES DAILY IN THE MORNING, EVENING, AND BEDTIME 90 capsule 024 Active topiramate 50 MG tabletIndications :Chronic migraine w/o aura w/o status migrainosus, not intractable Take 1 tablet by mouth at bedtime. 30 tablet 7 024 2024 Active FREESTYLE LITE test stripIndications: Type 2 diabetes mellitus with stage 3b chronic kidney disease, with long-term current use of insulin (CMS/HCC) TEST BLOOD SUGAR FOUR TIMES DAILY 100 strip 11 024 Active lisinopril 40 MG tabletIndications :Primary hypertension TAKE 1 TABLET BY MOUTH EVERY MORNING 90 tablet 3 024 Active Dulaglutide 4.5 MG/0.5ML solution auto-injector Inject 0.5 mL (4.5 mg) under the skin 1 (one) time per week. 3 mL 3 024 Active atorvastatin (Lipitor) 80 MG tabletIndications :Mixed hyperlipidemia TAKE 1 TABLET BY MOUTH AT BEDTIME 90 tablet 1 025 Active carvedilol (Coreg) 25 MG tabletIndications :Primary hypertension Take 1 tablet (25 mg) by mouth with breakfast and with evening meal. 180 tablet 1 025 Active chlorthalidone (Hygroton) 25 MG tabletIndications :Primary hypertension TAKE 1 TABLET BY MOUTH EVERY MORNING 90 tablet 3 025 Active gabapentin (Neurontin) 100 MG capsuleIndication s:Neuropathy TAKE 1 CAPSULE BY MOUTH THREE TIMES DAILY IN THE MORNING, EVENING, AND BEDTIME 90 capsule 025 Active Ferrous Sulfate (iron) 325 (65 Fe) MG tabletIndications :Iron deficiency anemia secondary to inadequate dietary iron intake TAKE 1 TABLET BY MOUTH EVERY EVENING 90 tablet 025 Active Lantus SoloStar 100 UNIT/ML penIndications: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 (CMS/HCC) INJECT 35 UNITS SUBCUTANEOUSLY TWICE DAILY 15 mL 2 025 Active chlorthalidone (Hygroton) 25 MG tabletIndications :Primary hypertension TAKE 1 TABLET BY MOUTH EVERY MORNING 90 tablet 3 024 2024 Discontinued FeroSul 325 (65 Fe) MG tabletIndications :Iron deficiency anemia secondary to inadequate dietary iron intake TAKE 1 TABLET BY MOUTH EVERY EVENING 90 tablet 024 2024 Discontinued insulin glargine (Lantus SoloStar) 100 UNIT/ML penIndications: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 (CMS/HCC) Inject 35 Units under the skin 2 times daily. 15 mL 2 024 2024 Discontinued gabapentin (Neurontin) 100 MG capsuleIndication s:Neuropathy TAKE 1 CAPSULE BY MOUTH THREE TIMES DAILY IN THE MORNING, EVENING, AND BEDTIME 90 capsule 025 2024 Discontinued Active Problems Problem Noted Date [...] (08/04/2022 2:39 PM EDT): Followed by cardiology [place] filter in place 01/07/2018 Hemiparesis affecting left [...] Eye exam pending to be done at [facility] Assessment & Plan (04/07/2023 1:46 PM EST): On trulicity and lantus, new labs will be ordered for guidance of therapy Assessment & Plan (11/02/2022 12:11 PM EDT): LAURA w PCP Assessment & Plan (10/22/2022 12:42 PM [...] Encounters Date Type Department Care Team Description 04/06/2024 Orders Only GENERIC EXTERNAL DATA DEPARTMENT Provider, Generic External Data 04/03/2024 Refill [facility] CHC MED & PEDS [address] [place] [address] Toro Silva MD CKD stage 3 due to type 2 diabetes mellitus ([facility]) 03/20/2024 Refill [facility] CHC MED & PEDS [address] [place] [address] Toro Silva MD Neuropathy; Iron deficiency anemia secondary to inadequate dietary iron intake 03/16/2024 Orders Only GENERIC EXTERNAL DATA DEPARTMENT Provider, Generic External Data 03/13/2024 Refill [facility] MEDICINE [address] [place] [address] Toro Silva MD Primary hypertension 03/07/2024 Telephone [facility] MED & PEDS [address] [place] [address] Toro Silva MD Medication Question 02/22/2024 Refill [facility] MEDICINE [address] [place] [address] Toro Silva MD Primary hypertension 02/22/2024 Refill [facility] MEDICINE [address] [place] [address] Toro Silva MD Primary hypertension 02/21/2024 Refill [facility] MED & PEDS [address] [place] [address] Toro Silva MD Neuropathy 02/10/2024 Refill [facility] MEDICINE [address] [place] [address] Toro Silva MD Mixed hyperlipidemia 01/20/2024 10:45 AM EST Office Visit [facility] MED & PEDS [address] [place] [address] Toro Silva MD Other iron deficiency anemia (Primary Dx); Type 2 diabetes mellitus with stage 3b chronic kidney disease, with long-term current use of insulin ([facility]); CKD stage 3 due to type 2 diabetes mellitus ([facility]); Primary hypertension 01/20/2024 Travel 01/20/2024 Refill [facility] MED & PEDS [address] [place] [address] Toro Silva MD Primary hypertension; Neuropathy 01/17/2024 Telephone [facility] MEDICINE [address] [place] [address] Toro Silva MD PT-1 01/10/2024 Patient Outreach [facility] MED [facility] PEDS [address] [place] [address] Toro Silva MD Pre-visit Planning (SDOH negative, Tobacco screening negative.) 01/08/2024 Refill [facility] MEDICINE [address] [place] [address] Toro Silva MD Type 2 diabetes mellitus with stage 3b chronic kidney disease, with long-term current use of insulin ([facility]) from Last 3 Months Immunizations Name Administration [...] Screening 11/08/2023 Depression Screening 01/19/2024 01/18/2023, 01/19/20 23 Diabetes: Hemoglobin A1C 03/16/2024 024, 11/29/2023, 05/14/2023, [...] WHOLE BLOOD Routine 04/06/2024 1:24 PM EST HEMATOXYLIN AND EOSIN STAIN Routine 03/16/2024 10:05 AM EST GLUCOSE, WHOLE BLOOD Routine 03/16/2024 9:21 AM EST POCT GLUCOSE Routine 01/20/2024 11:08 AM EST [...] Recently Relevant to Health Maintenance Results * Glucose, Whole Blood (04/06/2024 1:24 PM EST) Glucose, Whole Blood 108 60 - 115 mg/dL [facility] Comment:METER #: [id number] Testing performed in the Endocrinology Department [address] , [address], [facility]. 04/06/2024 1:24 PM EST 04/06/2024 1:29 PM EST us Generic External Data Provider LAB BLOOD ORDERAB LES Final Result [facility] [address] [place] [phone] * Hematoxylin and Eosin Stain (03/16/2024 10:05 AM EST) 03/16/2024 10:0 5 AM EST 03/16/2024 10:21 AM EST Narrative [facility] - 03/17/2024 3:03 PM EST ----- ------- Name: Davon Gonzalez ? Age/Sex: 58/M ? : 1965 Unit#: [id number] ?? Attend Dr: Valente Drake MD ?Re03/16/24 ?Status: DEP SDC ? Location: HO.SSS ?Disch: ? ----- ------- SPEC : [id number] ?RECD: 03/16/24-1021 ? STATUS: ??SOUT ? REQ NUM: [id number] ? ARLYN: 03/16/24-5 ? SUBM DR: Valente Drake MD ? ENTERED: ??03/16/24-5 ?SP TYPE: Surgical ? OTHR DR: Toro [...] submitted in toto in a cassette labeled A. CEDS Copies To: ?? Toro Silva MD ?? [facility] ?? [address] ?? [place] [address] ?? [phone] ?? Valente Drake MD ?? [facility] ?? [address] ?? [place] [address] ?? [phone] ----- ------- Signed (signature on file) Sidney Ruzi MD 03/17/24 1503 ? ----- ------- ? END OF REPORT ? Generic External Data Provider LAB BLOOD ORDERAB LES Final Result Performing Organization Address [facility] Co de Phone Number [facility] [address] [place] [address] [phone] * (ABNORMAL) Glucose, Whole Blood (03/16/2024 9:21 AM EST) Glucose, Whole Blood 142(H) 60 - 115 mg/dL [facility] Comment:METER #: [id number] 03/16/2024 9:21 AM EST 03/16/2024 9:33 AM EST Generic External Data Provider LAB BLOOD ORDERAB LES Final Result Performing Organization Address [facility] Co de Phone Number [facility] [address] [place] [phone] * POCT Glucose (01/20/2024 11:08 AM EST) Glucose Blood, POC 151 60 - 200 mg/dL QC Media Lot # [id number] Lot# Expiration Date Blood Capillary blood specimen / Unknown 01/20/2024 11:08 AM EST Toro Perez MD POINT OF CARE TEST ENTER/EDIT ORDERABLES Final Result * (ABNORMAL) Hemoglobin A1c (12/15/2023 10:01 AM EST) Hemoglobin A1c 7.4(H) <6.0 % [facility] Comment:Hemoglobin A1C Refer ence [place] Adults: 4.8 - 6.0 % Non diabetic: < 6.0 % Goal: < 7.0 %Additional Action Suggested: > 8.0 %Note: Hemoglobin A1c results are invalid for patients with abnormal amounts of HbF. Blood transfusions may impact the HbA1c concentration in the patient sample. Estimated Average Glucose 166 mg/dL [facility] Comment:eAG = Estimated ave rage glucose which is %A1C expressed asaverage glucose, using the formula of the L1Z-SgexdugXmdynwf Glucose study (ADAG), Diabetes Care, Vol.31,#8,Sep. 2007 12/15/2023 10:0 1 AM EST 12/15/2023 11:30 AM EST us Generic External Data Provider LAB BLOOD ORDERAB LES Final Result [facility] [address] [place] [phone] * (ABNORMAL) Lipid Panel, Standard (12/15/2023 10:01 AM EST) Triglycerides 141 <150 mg/dL [facility] Comment:Desirable Triglyceri de: less than 150 mg/dLBorderline High Triglyceride 150-199 mg/dLHigh Triglyceride: 200-499 mg/dLVery High Triglyceride: greater than or equal to 5OO mg/dL Cholesterol 106 <200 mg/dL [facility] Comment:Desirable Cholestero l: less than 200 mg/dLBorderline High Cholesterol: 200-239 mg/dLHigh Cholesterol: greater than 239 mg/dL LDL Cholesterol Calculated 45 <100 mg/dL [facility] Comment:Desirable LDL: less than 100 mg/dLNear Optimal/Above Optimal LDL: 110- 129 mg/dLBorderline High LDL: 130-159 mg/dLHigh LDL: 160-189 mg/dLVery High LDL: greater than or equal to 190 mg/dL HDL Cholesterol 33(L) >40 mg/dL [facility] Comment:Desirable HDL: great er than 40 mg/dL Note: This HDL assay may give artificially low results in patients with liver disease. Blood Venous blood specimen / Unknown 12/15/2023 10:01 AM EST 12/15/2023 11:32 AM EST Toro Perez MD LAB BLOOD ORDERABL ES Final Result [facility] [address] [place] [address] [phone] * HIV-1 RNA, Quantitative, Real-Time PCR with Reflex to Genotype (RTI, PI, Integrase) (05/11/2022 9:42 AM EDT) Pathologist [facility] HIV 1 RNA, QN PCR NOT DETECTED copies/mL [facility], HIV 1 RNA, QN PCR NOT DETECTED Log copies/mL [facility], Comment: REFERENCE RANGE: NOT DETECTED copies/mL ?NOT DETECTED ??Log copies/mL This test was performed using Real-Time Polymerase Chain Reaction. Reportable range is 20 to 10,000,000 copies/mL (1.30-7.00 Log copies/mL). 05/11/2022 9:42 AM EDT 05/11/2022 9:43 AM EDT Narrative [facility] - 05/14/2022 12:55 AM EDT FASTING:YES FASTING: YES Toro Perez MD LAB BLOOD ORDERABL ES Final Result Performing Organization Address City/[facility]/ZIP Co de Phone Number [facility] [address], [place] [address] Lot[facility], [address] [place] [address] * Hepatitis C Antibody with Reflex to HCV, RNA, Quantitative, Real-Time PCR (05/11/2022 9:42 AM EDT) Hepatitis C Antibody NON-REACT TAMERA NON-REACT TAMERA [facility] Index 0.08 <1.00 [facility] Comment: HCV antibody was non-reactive. There is no laboratory evidence of HCV infection. In most cases, no further action is required. However, if recent HCV exposure is suspected, a test for HCV RNA (test code 60101) is suggested. For additional information please refer to http://education.[employer]/faq/FET13r5 (This link is being provided for informational/ educational purposes only.) Blood Venous blood specimen / Unknown 05/11/2022 9:42 AM EDT 05/11/2022 9:43 AM EDT Narrative [facility] - 05/14/2022 12:55 AM EDT FASTING:YES FASTING: YES Toro Perez MD LAB BLOOD ORDERABL ES Final Result [facility] [address], [place] [address] [facility] [address] [place] [address] * Hm Colonoscopy (11/07/2020 6:57 AM EDT) Historical Provider HEALTH MAINTENANCE Final Result from Last 3 Months or Most Recently Relevant to Health Maintenance Insurance [facility] C3 * Guarantor: Davon Gonzalez Account Type Relation to Patient Date of Phone Billing Address Personal/Family Self [address] [place] [address] * Guarantor: Davon Gonzalez Account Type Relation to Patient Date of Phone Billing Address Personal/Family Self [address] [place] [address] Care Teams Catering Server Relationship Specialty Start Date End Date Toro Silva MD [address] [place] [phone] PCP - General Internal Medicine 07/09/19 Grazyna Alvarado Clinical Education ConsultantSeamstress Fitter 08/06/23
--- OUTSIDE RECORDS SUMMARY | 2024-04-06 15:44 | XMS_ITS | Encounter Summary ---
Author Organization [employer] Address [address] [facility] [address] [place] [address] Care Team Providers Care Eligibility Services Representative Name Role Phone Toro Silva MD Primary Care Prov ider Encounter Details Date Type Department Care Team (Late st Contact Info) Description 05/22/2023 Orders Only [facility] MEDICINE [address] [place], [place] [phone] ProviderHarley MD Social History Tobacco Use Types [...] documented as of this encounter Care Teams Eligibility Services Representative Relationship Specialty Start Date End Date Toro Silva MD [address] [place] [phone] PCP - General Internal Medicine 07/09/19 Grazyna Alvarado Search SpecialistDirector Content Marketing 08/06/23 documented as of this encounter
--- OUTSIDE RECORDS SUMMARY | 2024-04-06 15:44 | XMS_ITS | Encounter Summary ---
Author Organization [employer] Address [address] [facility] [address] [facility] [address] [place] [address] Care Team Providers Care Classification Counselor Name Role Phone Toro Silva MD Primary Care Prov ider Reason for Visit * Reason Comments Med Refill Encounter Details Date Type Department Care Team ([facility] st Contact Info) Description 09/29/2023 Refill [facility] CHC MED & PEDS [address] [place], [place] [phone] Sophy Rubi MD [address] [place] [address] Neuropathy Social History Tobacco Use Types Packs/Day [...] documented as of this encounter Care Teams Classification Counselor Relationship Specialty Start Date End Date Toro Silva MD [address] [place] [phone] PCP - General Internal Medicine 07/09/19 Grazyna Alvarado Bankruptcy AttorneyBath Steward 08/06/23 documented as of this encounter
--- OUTSIDE RECORDS SUMMARY | 2024-04-06 15:44 | XMS_ITS | Encounter Summary ---
Author Organization [employer] Address [address] [facility] 7t [place] [address] Care Team Providers Care Group Sales Coordinator Name Role Phone Toro Silva MD Primary Care Prov ider Reason for Visit * Reason Onset Date Comments Med Refill 04/13/2022 Encounter Details Date Type Department Care Team ([facility] st Contact Info) Description 04/13/2022 Refill [facility] CHC MED & PEDS [address] [place], [place] [phone] Toro Silva MD [address] [place] [address] Social History Tobacco Use Types Packs/Day Years [...] SoloStar) 100 UNIT/ML pen Please sent to [facility] [place], [place] - [address] documented in this encounter Plan of Treatment Not on file documented as of this encounter Visit Diagnoses Not on filedocumented in this encounter Care Teams Group Sales Coordinator Relationship Specialty Start Date End Date Toro Silva MD [address] [place] [phone] PCP - General Internal Medicine 07/09/19 Grazyna Alvarado Soundscriber MechanicUpholstery Trimmer 08/06/23 documented as of this encounter
--- OUTSIDE RECORDS SUMMARY | 2024-04-06 15:44 | XMS_ITS | Encounter Summary ---
Author Organization [employer] Address [address] [facility] 7t [place] [address] Care Team Providers Care Equine Manager Name Role Phone Toro Silva MD Primary Care Prov ider Reason for Visit * Reason Comments Med Refill Encounter Details Date Type Department Care Team (Late st Contact Info) Description 10/16/[address] [facility] MEDICINE [address] [place], [place] [phone] Toro Silva MD [address] [place], [place] [phone] Chronic pain syndrome Social History Tobacco Use [...] documented as of this encounter Care Teams Equine Manager Relationship Specialty Start Date End Date Toro Silva MD [address] [place] [address] PCP - General Internal Medicine 07/09/19 Grazyna Alvarado Regional Loss Prevention ManagerReinforcer 08/06/23 documented as of this encounter
--- OUTSIDE RECORDS SUMMARY | 2024-04-06 15:44 | XMS_ITS | Encounter Summary ---
Author Organization [employer] Address [address] [facility] [place] [address] Care Team Providers Care Contact Lens Manufacturer Name Role Phone Toro Silva MD Primary Care Prov ider Encounter Details Date Type Department Care Team (Late st Contact Info) Description 03/05/[address] [facility] MEDICINE [address] [place] [address] Toro Silva MD [address] [place], [place] [phone] Disorder of vision (Primary Dx) Social History [...] PM EDT 10/21/2022 3:10 PM EDT Narrative [facility] - 10/22/2022 2:46 PM EDT ----- ------- Name: Davon Gonzalez ? Age/Sex: 57/M ? : 1965 Unit#: [id number] ?? Attend Dr: Valente Drake MD ?Re10/21/22 ?Status: DEP SDC ? Location: HO.SSS ?Disch: ? ----- ------- SPEC : [id number] ? RECD: 10/21/22-7140 ? STATUS: ??SOUT ? REQ NUM: [id number] ? ARLYN: 10/21/22-1331 ? SUBM DR: Valente [...] 0.45 cm in greatest dimension semitranslucent, soft, seqeuira-pink papular tissue fragment which is submitted in toto in a single labeled B. ??The debris is retained in formalin. CEDS Copies To: ?? Toro Silva MD ?? [address] ?? [place] [address] ?? [phone] ? CONTINUED ON NEXT PAGE ----- ------- Name: Davon Gonzalez ? Age/Sex: 57/M ? : 1965 Unit#: [id number] ?? Attend Dr: Valente Drake MD ?Re10/21/22 ?Status: DEP SDC ? Location: HO.SSS ?Disch: ? ----- ------- SPEC : [id number] ? RECD: 10/21/22-1509 ? STATUS: ??SOUT ? REQ NUM: [id number] ? ARLYN: 10/21/22-1331 ? SUBM DR: Valente Drake MD ? ENTERED: ??10/21/22-1509 ?SP TYPE: Surgical ? OTHR DR: Toro Silva MD ORDERED: ??HE Stain/6, Gross Micro L4/2 ? Copies To: ??(Continued) ?? Valente Drake MD ?? [address] [facility] ?? [place] [address] ?? [phone] ----- ------- Signed (signature on file) Jennifer Frederick 10/22/22 1446 ? ----- ------- ? END OF REPORT ? us [facility] External Provider LAB BLO OD ORDERABLES Final Result [facility] [address] [facility] [place] [address] [phone] * (ABNORMAL) Glucose, Whole Blood (10/21/2022 11:49 AM EDT) Glucose, Whole Blood 143(H) 60 - 115 mg/dL [facility] Comment:METER #: [id number] 10/21/2022 11:4 9 AM EDT 10/21/2022 11:52 AM EDT us [facility] External Provider LAB BLO OD ORDERABLES Final Result [facility] [address] [place] [address] [phone] documented in this encounter Visit Diagnoses Diagnosis Disorder of vision- Primary documented in this encounter Care Teams Contact Lens Manufacturer Relationship Specialty Start Date End Date Toro Silva MD [address] [place] [phone] PCP - General Internal Medicine 07/09/19 Grazyna Alvarado Structural Iron WorkerCook Chill Technician 08/06/23 documented as of this encounter
== END 2024-04-06 13:56 | disposition home or self-care (01) ==
PROVIDERS: PCP Internal Medicine; Visit Provider Internal Medicine
DX: E11.65 Type 2 diabetes mellitus with hyperglycemia (principal); Z79.4 Long term (current) use of insulin; E11.42 Type 2 diabetes mellitus with diabetic polyneuropathy

== ENCOUNTER → 2024-04-06 13:11 | Outpatient (BNVA) | payer MEDICAID, SELFPAY | PROVIDERS: PCP Internal Medicine; Visit Provider Internal Medicine | DX: Z79.4 Long term (current) use of insulin (principal) | CPT/HCPCS: 82947; 83036; 99212 ==

== ENCOUNTER 2024-04-16 15:34 | Inpatient (IN) | payer MEDICAID, SELFPAY ==
[2024-04-16] VITALS (14 sets, daily range): BP systolic 113–172; BP diastolic 80–100; PULSE 102–135; RESP 16–20; TEMP 36.6–38.4; O2SAT 96–99; BMI 38.4
--- NOTE | ~2024-04-16 | CT_ITS ---
CLINICAL HISTORY: septic joint..s p TKR Exam: CT of the right knee with contrast. Comparison: X-rays of the right knee from 05/06/2024 Findings: Redemonstration of the large effusion. Soft tissue calcifications including quadriceps tendon. No suspicious lucency or hardware loosening of right knee arthroplasty. Old healed fibula diaphysis fractures redemonstrated. Periosteal thickening of the proximal tibia as can be seen with venous stasis and stress phenomenon. No defined intramuscular or superficial soft tissue abscess of the imaged soft tissues, with marked artifacts from the hardware. 1. Large effusion present. 2. No intramuscular abscess or superficial abscess of the imaged soft tissues in the study with artifact from the knee arthroplasty metal. This document has been electronically signed by: Brandin Gatica MD on 04/16/2024 22:55:22
--- NOTE | ~2024-04-16 | XR_ITS ---
CLINICAL HISTORY: Right knee pain 4 view right knee Comparison: X-rays of the right knee from 04/08/2020 Findings: No significant change in right knee arthroplasty hardware or adjacent palmar. Eelucity-[id number] effusion present. No new fracture or lucency. Old healed fracture of the proximal fibula diaphysis unchanged with bony bridging and angulation. Vascular calcifications are redemonstrated. IMPRESSION: 1. No hardware loosening or significant change of the right knee arthroplasty hardware compared to 04/08/2020. 2. [id number] effusion present. This document has been electronically signed by: Brandin Gatica MD on 04/16/2024 19:10:06
--- NOTE | 2024-04-16 16:12 | ED_ITS ---
HPI - General Adult General Chief complaint: Extremity Injury, Lower Stated complaint: LEG PAIN Time Seen by Provider: 04/16/24 18:45 Source: patient Limitations: language barrier History of Present Illness ED Provider: Nubia Ordonez PA-C HPI narrative: 58-year-old male with a history of hypertension, hyperlipidemia, diabetes, heart failure with preserved ejection fraction, chronic kidney disease, arthritis, prior CVA with residual left-sided weakness, presents with atraumatic right knee pain x3 days. Patient states he woke up 3 days ago with right knee pain, it has since progressed and become severe. Patient can not bear weight on the right lower extremity, he can not flex or extend from the knee. He denies fever. He denies redness or warmth of the joint. Related Data Home Medications ?Medication ?Instructions ?Recorded ?Confirmed albuterol sulfate 2.5 mg/3 mL 2.5 mg inhalation QID 12/14/19 04/17/24 (0.083 %) solution for nebulization gabapentin 100 mg capsule 100 mg PO TID 12/14/19 04/17/24 lancets 33 gauge (TRUEplus Lancets) #100 ea 12/14/19 04/06/24 quetiapine 300 mg tablet,extended 300 mg PO DAILY@1700 12/14/19 04/17/24 release 24 hr rivaroxaban 2.5 mg tablet (Xarelto) 2.5 mg PO BID 12/14/19 04/17/24 topiramate 50 mg tablet 50 mg PO BEDTIME 12/14/19 04/17/24 acetaminophen 500 mg tablet 500 mg PO Q6H PRN Pain 03/22/20 04/17/24 (Tylenol Extra Strength) fluticasone propionate 50 1 spray intranasal DAILY 01/06/21 04/17/24 mcg/actuation nasal spray,suspension atorvastatin 80 mg tablet 80 mg PO BEDTIME 01/06/22 04/17/24 chlorthalidone 25 mg tablet 25 mg PO DAILY 01/06/22 04/17/24 ferrous sulfate 325 mg (65 mg 325 mg PO BEDTIME 01/06/22 04/17/24 iron) tablet (FeroSul) prazosin 2 mg capsule 2 mg PO BID 01/06/22 04/17/24 empagliflozin 25 mg tablet 25 mg PO DAILY 09/28/23 04/17/24 (Jardiance) albuterol sulfate 90 mcg/actuation 2 puff inhalation Q4-6H PRN 03/03/24 04/17/24 aerosol inhaler Wheezing carvedilol 25 mg tablet 25 mg PO BID 03/03/24 04/17/24 duloxetine 60 mg capsule,delayed 60 mg PO DAILY 03/14/24 04/17/24 release trazodone 150 mg tablet 150 - 300 mg PO BEDTIME PRN 03/14/24 04/17/24 insomnia cetirizine 10 mg tablet (Zyrtec) 10 mg PO DAILY PRN ALLERGIES 04/17/24 04/17/24 dulaglutide 3 mg/0.5 mL 3 mg subcut WE 04/17/24 04/17/24 subcutaneous pen injector (Trulicity) famotidine 20 mg tablet 20 mg PO DAILY 04/17/24 04/17/24 insulin glargine 100 unit/mL (3 35 unit subcut BID 04/17/24 04/17/24 mL) subcutaneous pen (Lantus Solostar U-100 Insulin) linaclotide 290 mcg capsule 290 mcg PO DAILY 04/17/24 04/17/24 (Linzess) pantoprazole 40 mg tablet,delayed 40 mg PO BID@0630,1630 04/17/24 04/17/24 release Previous Rx's ?Medication ?Instructions ?Recorded Wheelchair #1 ea 07/18/20 blood-glucose meter (FreeStyle #1 ea 04/29/21 Lite Meter kit) evolocumab 140 mg/mL subcutaneous 140 mg subcut Q2W #2 mL 08/23/23 pen injector (Ruel Quinn) simethicone 180 mg capsule (Gas 180 mg PO QID #120 caps 09/28/23 Relief (simethicone)) FreeStyle Lancets 28 gauge #200 ea 04/06/24 (lancets) FreeStyle Trell 3 Plus Sensor #6 ea 04/06/24 (blood-glucose sensor) FreeStyle Trell 3 [place] #1 ea 04/06/24 (blood-glucose meter,continuous) FreeStyle Lite Strips (blood sugar #200 ea 04/06/24 diagnostic) pen needle, diabetic 32 gauge x #100 ea 04/06/24 (Pentips Pen Needle) Allergies Allergy/AdvReac Type Severity Reaction Status Date / Time shellfish derived Allergy Severe SWOLLEN Verified 04/16/24 16:11 THROAT apple [Apple] Allergy Intermediate SWELLING Verified 04/16/24 16:11 egg [Egg] Allergy Intermediate HIVES Verified 04/16/24 16:11 influenza virus vaccine, Allergy Intermediate SWELLING Verified 04/16/24 16:11 specific [Influenza Virus Vacc,Specific] lisinopril [Lisinopril] Allergy Intermediate Itching Verified 04/17/24 08:17 Penicillins Allergy Mild RASH Verified 04/16/24 16:11 nifedipine [From Procardia] Allergy Unknown UNKNOWN Verified 04/16/24 16:11 Review of Systems 2 Review of Systems: Yes all other systems are reviewed and are negative Constitutional: Constitutional: Denies fatigue and Denies fever(s) Cardiovascular: Cardiovascular: Denies chest pain and Denies dyspnea Respiratory: Respiratory: Denies cough and Denies dyspnea Gastrointestinal: Gastrointestinal: Denies abdominal pain, Denies diarrhea, Denies nausea and Denies vomiting Musculoskeletal: Musculoskeletal: Reports arthralgias and Denies joint swelling Integumentary/Breasts: Skin/Breast: Denies erythema Endocrine: Endocrine: Denies fatigue [facility] Past Medical History Attestation statement: The following information was validated with the patient. Medical History (Updated 04/17/24 @ 11:24 by JENNIFER Rincon) Benign skin lesion of cheek Pulmonary embolism Gastritis SUSY (acute kidney injury) Enteritis Epigastric pain Physical deconditioning SOB (shortness of breath) Colon cancer screening Dysphagia Uninodular goiter (nontoxic) Right knee pain Chronic pain Type 2 diabetes mellitus with polyneuropathy Upper abdominal pain H. pylori infection Obesity due to excess calories Blind right eye Goiter Cancer of eye Chronic kidney disease, stage 3 Hemiparesis affecting left side as late effect of cerebrovascular accident CHF (congestive heart failure) History of poliomyelitis GERD (gastroesophageal reflux disease) Morbid obesity Mood disorder Nasal polyps Angina of effort ARTEM (obstructive sleep apnea) Hemiplegia affecting dominant side Asthma Other pulmonary embolism and infarction Left ventricular hypertrophy Syncope Type 2 diabetes mellitus with hyperglycemia, with long-term current use of insulin Hyperlipidemia LDL goal <70 Essential hypertension Surgical History History of excision of lesion (~09/09/23) History of carpal tunnel surgery History of right knee joint replacement History of esophagogastroduodenoscopy (EGD) History of cardiac catheterization Hx of knee surgery History of coronary artery stent placement Family History Family History Father Stroke Brain cancer CVD (cardiovascular disease) Diabetes Mother Diabetes Social History Social History Household Members: Significant Other Household Members Other:: [employer] Housing: Apartment Are you a primary home care assistant to a significant other at home: No Do you presently have visiting nurse or other home services: No Alcohol intake: never Patient Tobacco Use Status: Never used Tobacco Smoked in Last 30 Days: No Use of substances other than those prescribed or required for medical reasons: No Advance Directives: Yes Advance Directives on File: Yes Advance Directives Date on File: 11/08/20 Do you have a plan to hurt others: No Plan Nutrition Risks: No Nutritional Risk service: No Physical Exam ED Vital Signs: Vital Signs - 24 hr 04/16/24 20:28 04/16/24 20:55 04/16/24 21:10 Temperature Pulse Rate 118 H Respiratory Rate 16 Blood Pressure 135/84 133/84 134/80 Pulse Oximetry 97 Oxygen Delivery Method Room Air 04/16/24 21:25 04/16/24 21:40 04/16/24 22:08 Temperature 98.3 F Pulse Rate 105 H Respiratory Rate 16 Blood Pressure 113/82 115/81 134/84 Pulse Oximetry 96 Oxygen Delivery Method Room Air 04/16/24 22:08 04/16/24 22:10 04/16/24 22:25 Temperature Pulse Rate Respiratory Rate Blood Pressure 148/84 H 138/84 139/89 Pulse Oximetry Oxygen Delivery Method 04/16/24 23:03 04/16/24 23:30 Temperature 98.7 F Pulse Rate 102 H Respiratory Rate 18 Blood Pressure 127/80 122/81 Pulse Oximetry Oxygen Delivery Method Room Air BMI result Body Mass Index 38.4 Const Other: Alert Orientation/consciousness: patient oriented x3 Resp Effort & Inspection: normal respiratory effort Cardio Other: Normal peripheral perfusion Skin Other: Warm dry no rash Neuro General: patient oriented x3, no focal motor deficits and CN's II-XI intact bilaterally Extrem Other: Unable to flex or extend the right knee, I just appear somewhat swollen, there was no overlying erythema or overt warmth Psych Other: Cooperative Course Course Course Narrative: RME: 58 yold male presents tot he ED for Right knee pain and swelling or 3 days without any trauma. Patient is unable to bear weight. X-ray ordered. Reevaluation(s) Reevaluation #1: Sepsis identified, the patient was tachycardic, febrile rectally, we will be obtaining blood cultures, giving IV fluid, starting empiric ceftriaxone. I am concerned that the knee is a septic joint in his the source. We will be reaching out to the orthopedic service eventually. Obtaining a CT scan of the knee. Time: 20:01 Consultations Consultation #1: rogelio schaefer.....Edinson Campos....... Mr. Redd reached out to his attending, they are requesting we admit to Medicine given the patient has been worked up for sepsis, in addition to his other comorbidities, it would not be appropriate for the orthopedic service to admit this patient to their service. They are requesting a joint tap, I will do so. They will be seeing him tomorrow. Time: 21:49 Medications Administered Generic Name Dose Route Start Last Admin Trade Name Freq PRN Reason Stop Dose Admin Albuterol Sulfate 2.5 mg 04/17/24 13:00 04/17/24 15:10 Albuterol Sulfate (0.083%) 2.5 Mg/3 Ml Vial.Neb INHALE 2.5 mg QID CINDI Administration Carvedilol 25 mg 04/17/24 09:00 04/17/24 10:09 Carvedilol 25 Mg Tablet PO 25 mg BID CINDI Administration Protocol Duloxetine HCl 60 mg 04/17/24 09:00 04/17/24 10:11 Duloxetine Hcl 60 Mg Capsule. PO 60 mg DAILY CINDI Administration Empagliflozin 25 mg 04/17/24 09:00 04/17/24 10:39 Empagliflozin 25 Mg Tablet PO 25 mg DAILY CINDI Administration Famotidine 20 mg 04/17/24 09:00 04/17/24 10:11 Famotidine 20 Mg Tablet PO 20 mg DAILY CINDI Administration Fluticasone Propionate 1 spray 04/17/24 10:45 04/17/24 12:04 Fluticasone Propionate Nasal 16 Gm [place] NOSTRIL-B Not Given DAILY CINDI Gabapentin 100 mg 04/17/24 10:45 04/17/24 16:26 Gabapentin 100 Mg Capsule PO 100 mg TID CINDI Administration Hydromorphone HCl 0.5 mg 04/16/24 23:54 04/17/24 18:24 Hydromorphone Hcl 0.5 Mg/0.5 Ml Syringe IVPUSH 0.5 mg Q4H PRN Administration Pain, Severe (Pain Scale 7-10) Protocol Insulin Glargine 35 unit 04/17/24 09:00 04/17/24 10:08 Insulin Glargine,Hum.Rec.Anlog 100 Unit/Ml 10 Ml Vial SUBCUT 35 unit DAILY CINDI Administration Insulin Human Lispro 0 unit 04/17/24 07:30 04/17/24 18:23 Insulin Lispro 100 Unit/Ml 3 Ml Vial SUBCUT Not Given QIDACHS [facility] Protocol Omeprazole 20 mg 04/17/24 16:30 04/17/24 16:26 Omeprazole 20 Mg Capsule.Dr PO 20 mg BID@0630,1630 [facility] Administration Oxycodone HCl 5 mg 04/16/24 23:39 04/17/24 16:26 Oxycodone Hcl Immed Release 5 Mg Tablet PO 5 mg Q6H PRN Administration Pain, Moderate(Pain Scale 4-6) Prazosin HCl 2 mg 04/17/24 10:30 04/17/24 12:03 Prazosin Hcl 1 Mg Capsule PO 2 mg BID CINDI Administration Protocol Prednisone 40 mg 04/17/24 11:15 04/17/24 12:04 Prednisone 20 Mg Tablet PO 40 mg DAILY CINDI Administration Rivaroxaban 2.5 mg 04/17/24 09:00 04/17/24 10:39 Rivaroxaban 2.5 Mg Tablet PO 2.5 mg BID CINDI Administration Simethicone 160 mg 04/17/24 13:00 04/17/24 16:26 Simethicone 80 Mg Tab.Chew PO 160 mg QID [facility] Administration Sodium Chloride 3 ml 04/17/24 00:00 04/17/24 18:25 0.9 % Sodium Chloride Flush 3 Ml Syringe IVFLUSH 3 ml QSHIFT [facility] Administration Discontinued Medications Generic Name Dose Route Start Last Admin Trade Name Freq PRN Reason Stop Dose Admin Acetaminophen 975 mg 04/16/24 20:01 04/16/24 20:26 Acetaminophen 325 Mg Tablet PO 04/16/24 20:02 975 mg ONCE ONE Administration Ceftriaxone Sodium 2 gm 04/16/24 19:56 04/16/24 20:12 Ceftriaxone Sodium 2 Gm Vial IVPUSH 04/16/24 19:57 2 gm ONCE ONE Administration Lactated Ringer's 3,048.15 mls @ 3,048.15 mls/hr 04/16/24 19:56 04/16/24 21:26 Lr 30 ml/kg infuse over 1 hr (3048.15 ml) 04/16/24 20:55 Infused IV Infusion .Q1H ONE Magnesium Sulfate 2 gm in 50 mls @ 25 mls/hr 04/16/24 20:25 04/16/24 21:48 Magnesium Sulfate/H2o IV 04/16/24 22:24 Infused ONCE ONE Infusion Vancomycin HCl 1,500 mg/ 500 mls @ 333.333 mls/hr 04/16/24 22:40 04/17/24 01:03 Sodium Chloride IV 04/17/24 00:09 Infused POSTOP ONE Infusion Iohexol 85 ml 04/16/24 22:06 04/16/24 22:07 Iohexol 350 Mg/Ml 100 Ml Infus..Btl IV 04/16/24 22:07 85 ml ONCE ONE Administration Morphine Sulfate 10 mg 04/16/24 19:56 04/16/24 20:13 Morphine Sulfate 10 Mg/Ml Cartridge IVPUSH 04/16/24 19:57 10 mg ONCE ONE Administration Protocol Morphine Sulfate 10 mg 04/16/24 22:40 04/16/24 23:33 Morphine Sulfate 10 Mg/Ml Cartridge IVPUSH 04/16/24 22:41 10 mg ONCE ONE Administration Protocol Procedures Joint Aspiration/Injection Joint Asp./Inject. 1: Time Out Performed: No Side of body: right Joint Aspirated: knee Ultrasound Guidance: Yes Skin Prep: Povidone-Iodine1% Local Anesthetic: lidocaine 1% and with epi Amount of anesthesia used (mL): 5 Needle Size Used: 18G Fluid Obtained: turbid Total fluid obtained (mL): 20 Medical Decision Making Medical Decision Making MDM Narrative: 58-year-old male with a history of hypertension, hyperlipidemia, diabetes, heart failure with preserved ejection fraction, chronic kidney disease, arthritis, prior CVA with residual left-sided weakness, presents with atraumatic right knee pain x3 days. Patient states he woke up 3 days ago with right knee pain, it has since progressed and become severe. Patient can not bear weight on the right lower extremity, he can not flex or extend from the knee. He denies fever. He denies redness or warmth of the joint. Problem: Knee replacement, chronic kidney disease, diabetes History: Per patient I have considered the following differential diagnoses: Septic joint, gout, fracture, dislocation, sprain, DVT Plan:Sepsis identified, the patient was tachycardic, febrile rectally, we will be obtaining blood cultures, giving IV fluid, Tylenol for the fever, starting empiric ceftriaxone. We will be treating his pain as well. I am concerned that the knee is a septic joint in his the source. We will be reaching out to the orthopedic service eventually. Obtaining a CT scan of the knee. We will be also screening labs and inflammatory markers. I have independently reviewed the following tests: Labs: Leukocytosis noted with left shift, not anemic, ESR 75, creatinine baseline, no electrolyte abnormality noted, CRP 9.65, lactic 1.1, magnesium was low at 1.4, we will give 2 g IV X-ray right knee:IMPRESSION: 1. No hardware loosening or significant change of the right knee arthroplasty hardware compared to 04/08/2020. 2. [id number] effusion present. This document has been electronically signed by: Brandin Gatica MD on 04/16/2024 19:10:06 CT right knee: Lab Data 04/17/24 05:43 04/17/24 05:43 Labs: Lab Results 04/16/24 04/16/24 04/16/24 Range/Units 19:54 20:05 22:41 WBC 13.1 H (4.8-10.8) X10*3/uL RBC 4.34 L (4.60-5.80) X10*6/uL Hgb 12.6 L (14.0-18.0) g/dl Hct 37.4 L (42.0-52.0) % MCV 86.2 (80.0-98.0) fL MCH 29.0 (27.0-33.0) pg MCHC 33.7 (31.0-36.0) g/dl RDW 13.4 (11.0-16.0) % Plt Count 266 (160-400) X10*3/uL MPV 10.4 (9.4-12.4) fL Immature Gran % (Auto) 0.4 (0.0-0.4) % Neut % (Auto) 74.4 H (45-73) % Lymph % (Auto) 16.4 L (20-40) % [place] % (Auto) 8.3 (2-11) % Eos % (Auto) 0.3 (0-4) % Baso % (Auto) 0.2 (0-2) % Lymph # (Auto) 2.2 (1.2-4.9) X10*3/uL [place] # (Auto) 1.1 (0.1-1.2) X10*3/uL Eos # (Auto) 0.0 (0.0-0.4) X10*3/uL Baso # (Auto) 0.0 (0.0-0.2) X10*3/uL Abs Immat Gran (auto) 0.05 H (0.00-0.03) X10*3/uL Absolute Neuts (auto) 9.7 H (2.0-8.3) x10*3/uL Absolute Nucleated RBC 0.000 (0.0-0.012) X10*3/uL Nucleated RBC % (auto) 0.0 (0.0-0.2) /100WBC ESR 75 H (0-15) MM/HR Sodium 141 (135-145) mmol/L Potassium 4.0 (3.3-5.1) mmol/L Chloride 105 (96-108) mmol/L Carbon Dioxide 25 (22-29) mmol/L Anion Gap 15 (12-20) BUN 27 H (9-16) mg/dL Creatinine 1.67 H (0.5-1.4) mg/dL Estim Creat Clear Calc 50.6 Estimated GFR 42 Random Glucose 139 H (60-115) mg/dL Lactic Acid 1.1 (0.5-2.0) mmol/L Uric Acid 9.0 H (3.4-7.0) mg/dL Calcium 9.6 (8.4-10.2) mg/dL Magnesium 1.4 L* (1.6-2.6) mg/dL Total Bilirubin 0.6 (0.0-1.0) mg/dL AST 18 (5-37) U/L ALT 14 (0-40) U/L Alkaline Phosphatase 86 (39-117) U/L C-Reactive Protein 9.65 H (< or = 0.50) mg/dL Total Protein 8.5 H (6.5-8.0) g/dL Albumin 4.2 (3.5-5.0) g/dL Synovial Source right knee Synovial WBC 6.521 X10*3/uL Synovial RBC 0.015 X10*6/uL Synovial Neutrophils 84 % Synovial Lymphocytes 3 % Synovial Monocytes 13 % Blood Type Antibody Screen 04/16/24 Range/Units 22:51 WBC (4.8-10.8) X10*3/uL RBC (4.60-5.80) X10*6/uL Hgb (14.0-18.0) g/dl Hct (42.0-52.0) % MCV (80.0-98.0) fL MCH (27.0-33.0) pg MCHC (31.0-36.0) g/dl RDW (11.0-16.0) % Plt Count (160-400) X10*3/uL MPV (9.4-12.4) fL Immature Gran % (Auto) (0.0-0.4) % Neut % (Auto) (45-73) % Lymph % (Auto) (20-40) % [place] % (Auto) (2-11) % Eos % (Auto) (0-4) % Baso % (Auto) (0-2) % Lymph # (Auto) (1.2-4.9) X10*3/uL [place] # (Auto) (0.1-1.2) X10*3/uL Eos # (Auto) (0.0-0.4) X10*3/uL Baso # (Auto) (0.0-0.2) X10*3/uL Abs Immat Gran (auto) (0.00-0.03) X10*3/uL Absolute Neuts (auto) (2.0-8.3) x10*3/uL Absolute Nucleated RBC (0.0-0.012) X10*3/uL Nucleated RBC % (auto) (0.0-0.2) /100WBC ESR (0-15) MM/HR Sodium (135-145) mmol/L Potassium (3.3-5.1) mmol/L Chloride (96-108) mmol/L Carbon Dioxide (22-29) mmol/L Anion Gap (12-20) BUN (9-16) mg/dL Creatinine (0.5-1.4) mg/dL Estim Creat Clear Calc Estimated GFR Random Glucose (60-115) mg/dL Lactic Acid (0.5-2.0) mmol/L Uric Acid (3.4-7.0) mg/dL Calcium (8.4-10.2) mg/dL Magnesium (1.6-2.6) mg/dL Total Bilirubin (0.0-1.0) mg/dL AST (5-37) U/L ALT (0-40) U/L Alkaline Phosphatase (39-117) U/L C-Reactive Protein (< or = 0.50) mg/dL Total Protein (6.5-8.0) g/dL Albumin (3.5-5.0) g/dL Synovial Source Synovial WBC X10*3/uL Synovial RBC X10*6/uL Synovial Neutrophils % Synovial Lymphocytes % Synovial Monocytes % Blood Type A Positive Antibody Screen NEGATIVE Discharge Plan Discharge Clinical Impression: Effusion of right knee, Sepsis Patient Disposition: Admitted As Inpatient
--- NOTE | 2024-04-16 17:22 | ECG_ITS ---
Test Reason : tachycardia Blood Pressure : */* mmHG Vent. Rate : 120 BPM Atrial Rate : 120 BPM P-R Int : 150 ms QRS Dur : 68 ms QT Int : 306 ms P-R-T Axes : 29 -11 0 degrees QTcB Int : 432 ms Sinus tachycardia Minimal voltage criteria for LVH, may be normal variant ( R in aVL ) Abnormal ECG When compared with ECG of 06-Oct-2021 12:17, No significant changes seen Referred By: Eduardo Kiser Electronically Signed By: TIFFANY VERDUZCO
[2024-04-16 19:58] LABS: MANUAL DIFF FLAG NO
[2024-04-16 19:59] LABS: Basophils Percent Auto 0.2 % (0-2); Eosinophils Percent Auto 0.3 % (0-4); Hematocrit 37.4 % (42.0-52.0); Hemoglobin 12.6 g/dl (14.0-18.0); Imm Gran Abs Auto 0.05 X10*3/uL (0.00-0.03); Imm Gran Pct Auto 0.4 % (0.0-0.4); Lymphocytes Absolute Auto 2.2 X10*3/uL (1.2-4.9); Lymphocytes Percent Auto 16.4 % (20-40); Mean Corpuscular HGB Conc 33.7 g/dl (31.0-36.0); Mean Corpuscular Volume 86.2 fL (80.0-98.0); Mean Platelet Volume 10.4 fL (9.4-12.4); Monocytes Absolute Auto 1.1 X10*3/uL (0.1-1.2); Monocytes Percent Auto 8.3 % (2-11); Neutrophils Absolute Auto 9.7 x10*3/uL (2.0-8.3); Neutrophils Percent Auto 74.4 % (45-73); Platelet Count 266 X10*3/uL (160-400); Red Blood Count 4.34 X10*6/uL (4.60-5.80); Red Cell Distribution Width 13.4 % (11.0-16.0); White Blood Count 13.1 X10*3/uL (4.8-10.8)
[2024-04-16] MEDS: cefTRIAXone sodium 2 GM VIAL IVPUSH (20:12)
[2024-04-16] MEDS: Morphine Sulfate 10 MG/ML CARTRIDGE IVPUSH ×2 (20:13→23:33)
[2024-04-16 20:16] LABS: Alanine Aminotransferase 14 U/L (0-40); Albumin Level 4.2 g/dL (3.5-5.0); Alkaline Phosphatase 86 U/L (39-117); Anion Gap 15 (12-20); Aspartate Amino Transferase 18 U/L (5-37); Bilirubin Total 0.6 mg/dL (0.0-1.0); Blood Urea Nitrogen 27 mg/dL (9-16); C Reactive Protein 9.65 mg/dL (< or = 0.50); Calcium 9.6 mg/dL (8.4-10.2); Carbon Dioxide 25 mmol/L (22-29); Chloride 105 mmol/L (96-108); Creatinine Clr Calc Pharmacy 50.6; Estimated Glomerular Filt Rate 42; Glucose Random 139 mg/dL (60-115); Magnesium 1.4 mg/dL (1.6-2.6); Sodium 141 mmol/L (135-145); Total Protein 8.5 g/dL (6.5-8.0)
[2024-04-16] MEDS: Acetaminophen 325 MG TABLET 975 MG PO (20:26)
[2024-04-16 20:35] LABS: Erythrocyte Sedimentation Rate 75 MM/HR (0-15)
[2024-04-16 20:36] LABS: Lactic Acid 1.1 mmol/L (0.5-2.0)
[2024-04-16] MEDS: Magnesium Sulfate/H2O 2 GM/50 ML PIGGYBACK IV (20:41)
[2024-04-16] MEDS: iohexoL 350 MG/ML 100 ML INFUS..BTL 85 ML IV (22:07)
[2024-04-16 22:48] LABS: Source Synovial Fluid right knee
[2024-04-16 22:53] LABS: MN% 15.4 %; PMN% 84.6 %; RBC Synovial Fluid 0.015 X10*6/uL; WBC Synovial Fluid 6.521 X10*3/uL
--- NOTE | 2024-04-16 23:02 | PC.NURSE ---
while cleaning pt abrasion pt nose began to ooze scant amount of blood, notified
[2024-04-16 23:11] LABS: BF Shift QC OK YES
[2024-04-16 23:27] LABS: Lymphocytes Synovial Fluid 3 %; Monocytes Synovial Fluid 13 %; Neutrophils Synovial Fluid 84 %
[2024-04-16] MEDS: vancomycin HCL 1,500 MG in 0.9 % Sodium Chloride 500 ML 333.33 MG IV (23:33)
--- NOTE | 2024-04-16 23:38 | MHC.EDTECH ---
This pct assumed care of Patient at 2300 ,vitals taken ,Patient belongings list done ,Patient resting quietly in bed .
--- NOTE | 2024-04-16 23:43 | PM.IMHP ---
History of Present Illness Date of Service: 04/16/24 Attending physician on admission: Rg Galan Chief Complaint: Right knee pain Patient is a 58-year-old male with history of hypertension, hyperlipidemia, type 2 diabetes mellitus, chronic renal failure, osteoarthritis, heart failure with preserved ejection fraction, prior CVA with residual left-sided weakness who presents to the emergency room from home complaining of progressively worsening pain in his right knee since 3 days ago. Onset of pain was spontaneous with no preceding trauma. He states that he woke up 3 days ago with the pain which has unfortunately gotten worse to a point where he now has limited motion around the knee and cannot bear any weight. He additionally describes experiencing easy fatigability though this preceded the pain. He denies any associated fevers or chills. Initial vital signs were notable for tachycardia with a heart rate of 124 beats per minute and elevated blood pressure of 171/91 mmHg. Initial blood work revealed a leukocytosis of 13.1 K with 74.4% neutrophils. His inflammatory markers including ESR and CRP were elevated at 75 and 9.65 respectively. He has stable renal insufficiency with a BUN of 27 and creatinine of 1.67 mg/dl. Serum magnesium was low at 1.4 while uric acid was slightly elevated at 9.0 mg/dL. Right knee arthrocentesis was performed and synovial fluid analysis report is pending. [facility] Medical History (Updated 04/17/24 @ 01:24 by Rg Galan MD) Benign skin lesion of cheek Pulmonary embolism Gastritis SUSY (acute kidney injury) Enteritis Epigastric pain Physical deconditioning SOB (shortness of breath) Colon cancer screening Dysphagia Uninodular goiter (nontoxic) Right knee pain Chronic pain Type 2 diabetes mellitus with polyneuropathy Upper abdominal pain H. pylori infection Obesity due to excess calories Blind right eye Goiter Cancer of eye Chronic kidney disease, stage 3 Hemiparesis affecting left side as late effect of cerebrovascular accident CHF (congestive heart failure) History of poliomyelitis GERD (gastroesophageal reflux disease) Morbid obesity Mood disorder Nasal polyps Angina of effort ARTEM (obstructive sleep apnea) Hemiplegia affecting dominant side Asthma Other pulmonary embolism and infarction Left ventricular hypertrophy Syncope Type 2 diabetes mellitus with hyperglycemia, with long-term current use of insulin Hyperlipidemia LDL goal <70 Essential hypertension Functional capacity: independent ambulation Family History Father Stroke Brain cancer CVD (cardiovascular disease) Diabetes Mother Diabetes Surgical History History of excision of lesion (~09/09/23) History of carpal tunnel surgery History of right knee joint replacement History of esophagogastroduodenoscopy (EGD) History of cardiac catheterization Hx of knee surgery History of coronary artery stent placement Social History Household Members: Significant Other 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 Housing: Apartment Are you a primary ostomy care nurse to a significant other at home: No Do you presently have visiting nurse or other home services: No Alcohol intake: never Patient Tobacco Use Status: Never used Tobacco Smoked in Last 30 Days: No Use of substances other than those prescribed or required for medical reasons: No Advance Directives: Yes Advance Directives on File: Yes Advance Directives Date on File: 11/08/20 Do you have a plan to hurt others: No Plan service: No Meds Allergies Allergy/AdvReac Type Severity Reaction Status Date / Time shellfish derived Allergy Severe SWOLLEN Verified 04/16/24 16:11 THROAT apple [Apple] Allergy Intermediate SWELLING Verified 04/16/24 16:11 egg [Egg] Allergy Intermediate HIVES Verified 04/16/24 16:11 influenza virus vaccine, Allergy Intermediate SWELLING Verified 04/16/24 16:11 specific [Influenza Virus Vacc,Specific] Penicillins Allergy Mild RASH Verified 04/16/24 16:11 lisinopril [Lisinopril] Allergy Unknown UNKNOWN Verified 04/16/24 16:11 nifedipine [From Procardia] Allergy Unknown UNKNOWN Verified 04/16/24 16:11 Home Medications ?Medication ?Instructions ?Recorded ?Confirmed ?Last Taken ?Type albuterol sulfate 2.5 mg/3 mL 2.5 mg inhalation QID 12/14/19 04/06/24 Unknown History (0.083 %) solution for nebulization furosemide 20 mg tablet 20 mg PO DAILY 12/14/19 04/06/24 01/05/21 History gabapentin 100 mg capsule 100 mg PO TID 12/14/19 04/06/24 01/05/21 History lancets 33 gauge (TRUEplus Lancets) #100 ea 12/14/19 04/06/24 Unknown History quetiapine 300 mg tablet,extended 300 mg PO DAILY@1700 12/14/19 04/06/24 01/05/21 History release 24 hr rivaroxaban 2.5 mg tablet (Xarelto) 2.5 mg PO BID 12/14/19 04/06/24 03/13/24 History topiramate 50 mg tablet 50 mg PO BEDTIME 12/14/19 04/06/24 01/05/21 History acetaminophen 500 mg tablet 500 mg PO Q6H PRN Pain 03/22/20 04/06/24 Unknown History (Tylenol Extra Strength) fluticasone propionate 110 1 puff PO BID 01/06/21 04/06/24 01/05/21 History mcg/actuation HFA aerosol inhaler (Flovent HFA) fluticasone propionate 50 1 spray intranasal DAILY 01/06/21 04/06/24 01/05/21 History mcg/actuation nasal spray,suspension lisinopril 40 mg tablet 40 mg PO QAM 12/25/21 04/06/24 03/16/24 History loratadine 10 mg tablet (Allergy 10 mg PO DAILY 12/25/21 04/06/24 Unknown History Relief (loratadine)) atorvastatin 80 mg tablet 80 mg PO BEDTIME 01/06/22 04/06/24 Unknown History chlorthalidone 25 mg tablet 25 mg PO QAM 01/06/22 04/06/24 Unknown History ferrous sulfate 325 mg (65 mg 325 mg PO QPM 01/06/22 04/06/24 Unknown History iron) tablet (FeroSul) naloxone 4 mg/actuation nasal 1 spray intranasal ONCE PRN 01/06/22 04/06/24 Unknown History spray (Narcan) overdose prazosin 2 mg capsule 2 mg PO BEDTIME 01/06/22 04/06/24 Unknown History empagliflozin 25 mg tablet 25 mg PO QAM 09/28/23 04/06/24 03/13/24 History (Jardiance) albuterol sulfate 90 mcg/actuation 2 puff inhalation Q4-6H PRN 03/03/24 04/06/24 Unknown History aerosol inhaler Wheezing carvedilol 25 mg tablet 25 mg PO BID 03/03/24 04/06/24 03/16/24 History duloxetine 60 mg capsule,delayed 60 mg PO QAM 03/14/24 04/06/24 Unknown History release trazodone 150 mg tablet 150 - 300 mg PO BEDTIME PRN 03/14/24 04/06/24 Unknown History insomnia Physical Exam Vital Signs and Narrative: Vital Signs: Last Vital Signs Temp 98.7 F 04/16/24 23:30 Pulse 102 H 04/16/24 23:30 Resp 18 04/16/24 23:30 BP 122/81 04/16/24 23:30 Pulse Ox 96 04/16/24 22:08 O2 Del Method Room Air 04/16/24 23:30 BMI result Body Mass Index 38.4 General: Well nourished. Awake, alert and oriented x 4. No apparent distress Eyes: No pallor or jaundice. PERRLA, EOMI HENT: Moist oral mucus membranes. No oropharyngeal lesions. Neck: Supple. No cervical adenopathy. No JVD Cardiovascular: Regular rate and rhythm. Normal heart sounds. No murmurs, rubs or gallops. No JVD. No peripheral edema. Respiratory: Normal respiratory effort with no accessory muscle use. CTAB. Gastrointestinal: Abdomen is soft, non-tender, non-distended. Normoactive bowel sounds in all quadrants. No hepatosplenomegaly Extremities: Right knee - swollen with n effusion. No erythema. Limited ROM. Otherwise with no leg edema or calf tenderness bilaterally. Good peripheral pulses Skin: Warm/Dry. No rashes. No mottling. Capillary refill is < 2 seconds Neurological: AAOx4. Intact speech & cognition. Gait and balance not assessed due to pain in the right knee. CN II - XII grossly intact but not individually tested. No motor or sensory deficits Hematologic: No bleeding. No ecchymosis. No swollen or tender lymph nodes. Psychiatric: Cooperative. Appropriate mood and affect. Results Labs 04/16/24 19:54 04/16/24 19:54 Labs: Laboratory Results - last 24 hr 04/16/24 04/16/24 04/16/24 19:54 20:05 22:41 MCV 86.2 MCH 29.0 MCHC 33.7 RDW 13.4 Plt Count 266 MPV 10.4 Immature Gran % (Auto) 0.4 Neut % (Auto) 74.4 H Lymph % (Auto) 16.4 L [place] % (Auto) 8.3 Eos % (Auto) 0.3 Baso % (Auto) 0.2 Lymph # (Auto) 2.2 [place] # (Auto) 1.1 Eos # (Auto) 0.0 Baso # (Auto) 0.0 Abs Immat Gran (auto) 0.05 H Absolute Neuts (auto) 9.7 H Absolute Nucleated RBC 0.000 Nucleated RBC % (auto) 0.0 ESR 75 H Anion Gap 15 Estim Creat Clear Calc 50.6 Estimated GFR 42 Random Glucose 139 H Lactic Acid 1.1 Uric Acid 9.0 H Calcium 9.6 Magnesium 1.4 L* Total Bilirubin 0.6 AST 18 ALT 14 Alkaline Phosphatase 86 C-Reactive Protein 9.65 H Total Protein 8.5 H Albumin 4.2 Synovial Source right knee Synovial WBC 6.521 Synovial RBC 0.015 Synovial Neutrophils 84 Synovial Lymphocytes 3 Synovial Monocytes 13 Blood Type Antibody Screen 04/16/24 22:51 MCV MCH MCHC RDW Plt Count MPV Immature Gran % (Auto) Neut % (Auto) Lymph % (Auto) [place] % (Auto) Eos % (Auto) Baso % (Auto) Lymph # (Auto) [place] # (Auto) Eos # (Auto) Baso # (Auto) Abs Immat Gran (auto) Absolute Neuts (auto) Absolute Nucleated RBC Nucleated RBC % (auto) ESR Anion Gap Estim Creat Clear Calc Estimated GFR Random Glucose Lactic Acid Uric Acid Calcium Magnesium Total Bilirubin AST ALT Alkaline Phosphatase C-Reactive Protein Total Protein Albumin Synovial Source Synovial WBC Synovial RBC Synovial Neutrophils Synovial Lymphocytes Synovial Monocytes Blood Type A Positive Antibody Screen NEGATIVE Imaging Radiologist's Impressions: Rt Knee CT Scan 1. Large effusion present. 2. No intramuscular abscess or superficial abscess of the imaged soft tissues in the study with artifact from the knee arthroplasty metal. Assessment and Plan (1) Right knee pain: Status: Acute (2) Effusion of right knee: Status: Acute (3) SIRS (systemic inflammatory response syndrome): Status: Acute (4) Uncontrolled hypertension: Status: Acute Plan 58-year-old male with history of hypertension, hyperlipidemia, type 2 diabetes mellitus, chronic renal failure, osteoarthritis, heart failure with preserved ejection fraction, prior CVA with residual left-sided weakness here with: # Right knee pain # Right knee effusion - likely with an inflammatory arthritis - doubt septic arthritis as has no fevers, erythema, increased warmth and DRP is only mildly elevated - follow up on synovial fluid cell count and microscopy - meanwhile continue empiric antibiotics pending fluid analysis results - consult Orthopedic surgery # SIRS -he meets criteria for SIRS with a tachycardia at 124 beats per minute and leukocytosis of 13.1 but with no clear foci of infection -we will continue the empiric IV antibiotics as we await synovial fluid analysis # essential hypertension - BP control is not optimal -resume carvedilol and closely monitor. # type 2 diabetes mellitus -insulin-requiring -resume insulin Lantus 35 units in the morning -closely monitor blood sugars and add sliding scale insulin coverage # stage IIIA CKD -noted with stable stage IIIA CKD -monitor # hyperlipidemia -resume atorvastatin DVT: SC Lovenox CODE STATUS: Full code Admission for at least 2 midnights for management of inflammatory right knee pain This note is constructed using voice recognition software. While every effort has been made to ensure accuracy, cloth pattern maker errors may have been included. Total time managing care of this patient today: 75 minutes. Quality Stroke Does the patient have a stroke diagnosis?: Yes Reason for No Anti-thrombotic by Day Two: N/A - Med Ordered VTE Prior VTE?: No VTE Risk Level:: Medical - moderate - high VTE Device Contraindication: N/A - Device Ordered VTE Drug Contraindication: N/A - Med Ordered
[2024-04-17] VITALS (12 sets, daily range): BP systolic 105–124; BP diastolic 62–74; PULSE 82–95; RESP 14–18; TEMP 36.1–36.5; O2SAT 93–96
[2024-04-17] MEDS: HYDROmorphone HCl 0.5 MG/0.5 ML SYRINGE IVPUSH ×2 (04:33→18:24)
[2024-04-17 06:25] LABS: MANUAL DIFF FLAG NO
[2024-04-17 06:44] LABS: Alanine Aminotransferase 28 U/L (0-40); Albumin Level 3.6 g/dL (3.5-5.0); Alkaline Phosphatase 99 U/L (39-117); Anion Gap 13 (12-20); Aspartate Amino Transferase 38 U/L (5-37); Bilirubin Total 0.5 mg/dL (0.0-1.0); Blood Urea Nitrogen 25 mg/dL (9-16); Calcium 8.5 mg/dL (8.4-10.2); Carbon Dioxide 20 mmol/L (22-29); Chloride 109 mmol/L (96-108); Creatinine Clr Calc Pharmacy 57.9; Estimated Glomerular Filt Rate 49; Glucose Random 130 mg/dL (60-115); Potassium 4.1 mmol/L (3.3-5.1); Sodium 138 mmol/L (135-145); Total Protein 7.1 g/dL (6.5-8.0)
[2024-04-17 06:46] LABS: Basophils Percent Auto 0.4 % (0-2); Eosinophils Absolute Auto 0.1 X10*3/uL (0.0-0.4); Eosinophils Percent Auto 0.5 % (0-4); Hematocrit 32.7 % (42.0-52.0); Hemoglobin 10.6 g/dl (14.0-18.0); Imm Gran Abs Auto 0.04 X10*3/uL (0.00-0.03); Imm Gran Pct Auto 0.4 % (0.0-0.4); Lymphocytes Absolute Auto 1.8 X10*3/uL (1.2-4.9); Lymphocytes Percent Auto 17.6 % (20-40); Mean Corpuscular HGB Conc 32.4 g/dl (31.0-36.0); Mean Corpuscular Hemoglobin 28.6 pg (27.0-33.0); Mean Corpuscular Volume 88.4 fL (80.0-98.0); Mean Platelet Volume 11.7 fL (9.4-12.4); Monocytes Percent Auto 9.3 % (2-11); Neutrophils Absolute Auto 7.4 x10*3/uL (2.0-8.3); Neutrophils Percent Auto 71.8 % (45-73); Platelet Count 148 X10*3/uL (160-400); Red Cell Distribution Width 13.8 % (11.0-16.0); White Blood Count 10.2 X10*3/uL (4.8-10.8)
[2024-04-17 07:15] LABS: Glucose, Whole Blood 111 mg/dL (60-115)
--- NOTE | 2024-04-17 08:46 | P.CONOP_ITS ---
History of Present Illness HPI Consult date: 04/17/24 Chief complaint: right knee pain Narrative: Patient is a 58-year-old male who was admitted to the hospital for evaluation of atraumatic right knee pain Patient reports that this pain began approximately 3-4 days ago, when he awoke to severe pain in the right knee Of note, patient is status post right total knee arthroplasty approximately 20 years ago in [place] Today, the patient reports that he is still experiencing significant pain in the right knee, particularly with motion Also reports diffuse tenderness to palpation of the right knee Reports that the knee is swollen, but denies any redness Denies any numbness or tingling in the right lower extremity. No other acute complaints or concerns at this time. Review of Systems 2 Review of Systems: Yes all other systems are reviewed and are negative [facility] Past Medical History Medical History (Updated 04/17/24 @ 11:24 by JENNIFER Rincon) Benign skin lesion of cheek Pulmonary embolism Gastritis SUSY (acute kidney injury) Enteritis Epigastric pain Physical deconditioning SOB (shortness of breath) Colon cancer screening Dysphagia Uninodular goiter (nontoxic) Right knee pain Chronic pain Type 2 diabetes mellitus with polyneuropathy Upper abdominal pain H. pylori infection Obesity due to excess calories Blind right eye Goiter Cancer of eye Chronic kidney disease, stage 3 Hemiparesis affecting left side as late effect of cerebrovascular accident CHF (congestive heart failure) History of poliomyelitis GERD (gastroesophageal reflux disease) Morbid obesity Mood disorder Nasal polyps Angina of effort ARTEM (obstructive sleep apnea) Hemiplegia affecting dominant side Asthma Other pulmonary embolism and infarction Left ventricular hypertrophy Syncope Type 2 diabetes mellitus with hyperglycemia, with long-term current use of insulin Hyperlipidemia LDL goal <70 Essential hypertension Family History Family History Father Stroke Brain cancer CVD (cardiovascular disease) Diabetes Mother Diabetes Surgical History Surgical History History of excision of lesion (~09/09/23) History of carpal tunnel surgery History of right knee joint replacement History of esophagogastroduodenoscopy (EGD) History of cardiac catheterization Hx of knee surgery History of coronary artery stent placement Social History Social History Household Members: Significant Other 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 Housing: Apartment Are you a primary healthcare social worker to a significant other at home: No Do you presently have visiting nurse or other home services: No Alcohol intake: never Patient Tobacco Use Status: Never used Tobacco Smoked in Last 30 Days: No Use of substances other than those prescribed or required for medical reasons: No Advance Directives: Yes Advance Directives on File: Yes Advance Directives Date on File: 11/08/20 Do you have a plan to hurt others: No Plan service: No Meds Allergies Allergy/AdvReac Type Severity Reaction Status Date / Time shellfish derived Allergy Severe SWOLLEN Verified 04/16/24 16:11 THROAT apple [Apple] Allergy Intermediate SWELLING Verified 04/16/24 16:11 egg [Egg] Allergy Intermediate HIVES Verified 04/16/24 16:11 influenza virus vaccine, Allergy Intermediate SWELLING Verified 04/16/24 16:11 specific [Influenza Virus Vacc,Specific] lisinopril [Lisinopril] Allergy Intermediate Itching Verified 04/17/24 08:17 Penicillins Allergy Mild RASH Verified 04/16/24 16:11 nifedipine [From Procardia] Allergy Unknown UNKNOWN Verified 04/16/24 16:11 Active Medications: Current Medications Acetaminophen (Acetaminophen 325 Mg Tablet) 650 mg PO Q6H PRN PRN Reason: Pain, Mild 1-3,fever,headache Atorvastatin Calcium (Atorvastatin Calcium 80 Mg Tablet) 80 mg PO BEDTIME CINDI Calcium Carbonate (Calcium Carbonate 750 Mg Tab.Chew) 750 mg PO Q4H PRN PRN Reason: Heartburn Carvedilol (Carvedilol 25 Mg Tablet) 25 mg PO BID CINDI; Protocol Dextrose (Dextrose 50 % 25 Gm/50 Ml Syringe) 25 gm IVPUSH Q15M PRN; Protocol PRN Reason: per Hypoglycemia Standing Ord. Duloxetine HCl (Duloxetine Hcl 60 Mg Capsule.Dr) 60 mg PO DAILY [facility] Empagliflozin (Empagliflozin 25 Mg Tablet) 25 mg PO DAILY [facility] Famotidine (Famotidine 20 Mg Tablet) 20 mg PO DAILY [facility] Glucose (Glucose Gel 15 Gm Gel..Gram.) 15 gm PO Q15M PRN; Protocol PRN Reason: per Hypoglycemia Standing Ord. Hydromorphone HCl (Hydromorphone Hcl 0.5 Mg/0.5 Ml Syringe) 0.5 mg IVPUSH Q4H PRN; Protocol PRN Reason: Pain, Severe (Pain Scale 7-10) Last Admin: 04/17/24 04:33 Dose: 0.5 mg Insulin Glargine (Insulin Glargine,Hum.Rec.Anlog 100 Unit/Ml 10 Ml Vial) 35 unit SUBCUT DAILY [facility] Insulin Human Lispro (Insulin Lispro 100 Unit/Ml 3 Ml Vial) 0 unit SUBCUT QIDACHS [facility]; Protocol Last Admin: 04/17/24 07:25 Dose: Not Given Magnesium Hydroxide (Milk Of Magnesia 30 Ml Oral.Susp) 30 ml PO DAILY PRN PRN Reason: Constipation Melatonin (Melatonin 3 Mg Tablet) 6 mg PO BEDTIME PRN PRN Reason: Insomnia Ondansetron HCl (Ondansetron Hcl 4 Mg/2 Ml Vial) 4 mg IVPUSH Q8H PRN PRN Reason: Nausea and Vomiting Oxycodone HCl (Oxycodone Hcl Immed Release 5 Mg Tablet) 5 mg PO Q6H PRN PRN Reason: Pain, Moderate(Pain Scale 4-6) Prazosin HCl (Prazosin Hcl 1 Mg Capsule) 2 mg PO BEDTIME [facility]; Protocol Rivaroxaban (Rivaroxaban 2.5 Mg Tablet) 2.5 mg PO BID [facility] Sodium Chloride (0.9 % Sodium Chloride Flush 3 Ml Syringe) [facility] Last Admin: 04/17/24 00:12 Dose: Not Given Trazodone HCl (Trazodone Hcl 100 Mg Tablet) 200 mg PO BEDTIME [facility] Home Medications ?Medication ?Instructions ?Recorded ?Confirmed ?Last Taken ?Type albuterol sulfate 2.5 mg/3 mL 2.5 mg inhalation QID 12/14/19 04/17/24 04/16/24 History (0.083 %) solution for nebulization gabapentin 100 mg capsule 100 mg PO TID 12/14/19 04/17/24 04/16/24 History lancets 33 gauge (TRUEplus Lancets) #100 ea 12/14/19 04/06/24 Unknown History quetiapine 300 mg tablet,extended 300 mg PO DAILY@1700 12/14/19 04/17/24 04/16/24 History release 24 hr rivaroxaban 2.5 mg tablet (Xarelto) 2.5 mg PO BID 12/14/19 04/17/24 04/16/24 History topiramate 50 mg tablet 50 mg PO BEDTIME 12/14/19 04/17/24 04/16/24 History acetaminophen 500 mg tablet 500 mg PO Q6H PRN Pain 03/22/20 04/17/24 04/16/24 History (Tylenol Extra Strength) fluticasone propionate 50 1 spray intranasal DAILY 01/06/21 04/17/24 04/16/24 History mcg/actuation nasal spray,suspension atorvastatin 80 mg tablet 80 mg PO BEDTIME 01/06/22 04/17/24 04/16/24 History chlorthalidone 25 mg tablet 25 mg PO DAILY 01/06/22 04/17/24 04/16/24 History ferrous sulfate 325 mg (65 mg 325 mg PO BEDTIME 01/06/22 04/17/24 04/16/24 History iron) tablet (FeroSul) prazosin 2 mg capsule 2 mg PO BID 01/06/22 04/17/24 04/16/24 History empagliflozin 25 mg tablet 25 mg PO DAILY 09/28/23 04/17/24 04/16/24 History (Jardiance) albuterol sulfate 90 mcg/actuation 2 puff inhalation Q4-6H PRN 03/03/24 04/17/24 04/16/24 History aerosol inhaler Wheezing carvedilol 25 mg tablet 25 mg PO BID 03/03/24 04/17/24 04/16/24 History duloxetine 60 mg capsule,delayed 60 mg PO DAILY 03/14/24 04/17/24 04/16/24 History release trazodone 150 mg tablet 150 - 300 mg PO BEDTIME PRN 03/14/24 04/17/24 04/16/24 History insomnia cetirizine 10 mg tablet (Zyrtec) 10 mg PO DAILY PRN ALLERGIES 04/17/24 04/17/24 04/16/24 History dulaglutide 3 mg/0.5 mL 3 mg subcut WE 04/17/24 04/17/24 04/12/24 History subcutaneous pen injector (Trulicity) famotidine 20 mg tablet 20 mg PO DAILY 04/17/24 04/17/24 04/16/24 History insulin glargine 100 unit/mL (3 35 unit subcut BID 04/17/24 04/17/24 04/16/24 History mL) subcutaneous pen (Lantus Solostar U-100 Insulin) linaclotide 290 mcg capsule 290 mcg PO DAILY 04/17/24 04/17/24 04/16/24 History (Linzess) pantoprazole 40 mg tablet,delayed 40 mg PO BID@0630,1630 04/17/24 04/17/24 04/16/24 History release Physical Exam 2 Vital Signs: Vital Signs: Last Vital Signs Temp 96.9 F 04/17/24 08:29 Pulse 92 04/17/24 08:29 Resp 18 04/17/24 08:29 BP 105/62 04/17/24 08:29 Pulse Ox 95 04/17/24 08:29 O2 Del Method Room Air 04/17/24 08:29 BMI result Body Mass Index 38.4 Extrem: Other: Patient's right knee edematous to inspection No erythema, ecchymosis noted No lacerations, abrasions, open areas No other evidence of infection Patient reports significant tenderness to palpation of the entire right knee, worst in the anterior aspect Both active and passive range of motion of the right knee are very limited due to pain, patient was unable to actively flex the right knee, and passive flexion is only obtained to approximately 20 degrees due to pain Distal sensation intact Capillary refill brisk Results Labs 04/17/24 05:43 04/17/24 05:43 Labs: Abnormal lab results 04/16/24 04/17/24 Range/Units 19:54 05:43 WBC 13.1 H (4.8-10.8) X10*3/uL RBC 4.34 L 3.70 L (4.60-5.80) X10*6/uL Hgb 12.6 L 10.6 L (14.0-18.0) g/dl Hct 37.4 L 32.7 L (42.0-52.0) % Plt Count 148 L D (160-400) X10*3/uL Neut % (Auto) 74.4 H (45-73) % Lymph % (Auto) 16.4 L 17.6 L (20-40) % Abs Immat Gran (auto) 0.05 H 0.04 H (0.00-0.03) X10*3/uL Absolute Neuts (auto) 9.7 H (2.0-8.3) x10*3/uL ESR 75 H (0-15) MM/HR Chloride 109 H (96-108) mmol/L Carbon Dioxide 20 L (22-29) mmol/L BUN 27 H 25 H (9-16) mg/dL Creatinine 1.67 H 1.46 H (0.5-1.4) mg/dL Random Glucose 139 H 130 H (60-115) mg/dL Uric Acid 9.0 H (3.4-7.0) mg/dL Magnesium 1.4 L* (1.6-2.6) mg/dL AST 38 H (5-37) U/L C-Reactive Protein 9.65 H (< or = 0.50) mg/dL Total Protein 8.5 H (6.5-8.0) g/dL H & H 04/16/24 04/17/24 Range/Units 19:54 05:43 Hgb 12.6 L 10.6 L (14.0-18.0) g/dl Hct 37.4 L 32.7 L (42.0-52.0) % All other labs normal. Diagnostic results Knee x-ray: report reviewed and image reviewed Knee CT: report reviewed and image reviewed Assessment and Plan (1) Gout of right knee: Status: Acute Plan 1. Gout of right knee Status post right TKA Gram stain negative, preliminary cultures negative Positive for 2+ urate crystals No evidence of septic arthritis at this time Can be treated as gout of the right knee Continue with recommendations per Medicine Patient can resume Xarelto No further acute orthopedic intervention indicated at this time Patient should follow-up with primary care upon discharge for treatment of gout Procedures Date of Service Date of Service: 04/17/24
[2024-04-17] MEDS: Insulin Glargine,Hum.rec.anlog 100 UNIT/ML 10 ML VIAL 35 UNIT SUBCUT (10:08)
[2024-04-17] MEDS: carvediloL 25 MG TABLET PO ×2 (10:09→23:15)
--- NOTE | 2024-04-17 10:09 | PHA.MEDREC ---
Addendum entered by Daniel Manuel [facility] 04/17/24 10:11: Nursing states, he experienced throat itching with Lisinopril, and is no longer on this medication. Original Note: Pharmacy Consult ? Medication Reconciliation Pharmacy has completed the medication reconciliation. 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 Verified Truclicity 3mg is on Wednesday, Repatha every 2 weeks is on Wednesday, Lantus 35 units BID, and pt is now on prazsoin 2mg BID.
[2024-04-17] MEDS: 0.9 % Sodium Chloride Flush 3 ML SYRINGE IVFLUSH ×2 (10:11→18:25)
[2024-04-17] MEDS: oxyCODONE HCl Immed Release 5 MG TABLET PO ×2 (10:11→16:26)
[2024-04-17] MEDS: Famotidine 20 MG TABLET PO (10:11)
[2024-04-17] MEDS: DULoxetine HCl 60 MG CAPSULE.DR PO (10:11)
[2024-04-17] MEDS: Empagliflozin 25 MG TABLET PO (10:39)
[2024-04-17] MEDS: Rivaroxaban 2.5 MG TABLET PO ×2 (10:39→23:09)
--- NOTE | 2024-04-17 11:12 | MHC.CM.PN ---
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
[2024-04-17] MEDS: Prazosin HCL 1 MG CAPSULE 2 MG PO ×2 (12:03→23:13)
[2024-04-17] MEDS: Gabapentin 100 MG CAPSULE PO ×3 (12:04→23:12)
[2024-04-17] MEDS: predniSONE 20 MG TABLET 40 MG PO (12:04)
[2024-04-17] MEDS: Albuterol Sulfate (0.083%) 2.5 MG/3 ML VIAL.NEB INHALE ×3 (12:05→20:34)
[2024-04-17 13:20] LABS: Glucose, Whole Blood 111 mg/dL (60-115)
[2024-04-17] MEDS: Simethicone 80 MG TAB.CHEW 160 MG PO ×2 (16:26→23:09)
[2024-04-17] MEDS: Omeprazole 20 MG CAPSULE.DR PO (16:26)
--- NOTE | 2024-04-17 16:28 | PC.NURSE ---
Pt reports increasing pain to affected knee; medicated per PRN orders; vss; family at bedside; awaiting bed for admission; will cont to monitor/tx per orders
[2024-04-17 18:33] LABS: Glucose, Whole Blood 146 mg/dL (60-115)
[2024-04-17 21:15] LABS: Glucose, Whole Blood 213 mg/dL (60-115)
[2024-04-17] MEDS: Insulin Lispro 100 UNIT/ML 3 ML VIAL SUBCUT (23:08)
[2024-04-17] MEDS: Ferrous Sulfate 324 MG TABLET.DR PO (23:09)
[2024-04-17] MEDS: Atorvastatin Calcium 80 MG TABLET PO (23:09)
[2024-04-17] MEDS: Topiramate 25 MG TABLET 50 MG PO (23:12)
[2024-04-17] MEDS: QUEtiapine Fumarate 100 MG TABLET 150 MG PO (23:13)
[2024-04-18 00:23] VITALS: BP 130/70; PULSE 94; RESP 18; TEMP 36; O2SAT 96
[2024-04-18] MEDS: 0.9 % Sodium Chloride Flush 3 ML SYRINGE IVFLUSH ×2 (00:41→10:50)
[2024-04-18 03:17] VITALS: BP 113/64; PULSE 85; RESP 16; TEMP 36; O2SAT 93
[2024-04-18] MEDS: Omeprazole 20 MG CAPSULE.DR PO (05:35)
[2024-04-18] MEDS: HYDROmorphone HCl 0.5 MG/0.5 ML SYRINGE IVPUSH (05:39)
[2024-04-18 07:33] LABS: Glucose, Whole Blood 173 mg/dL (60-115)
[2024-04-18 07:53] VITALS: BP 107/57; PULSE 85; RESP 19; TEMP 36.4; O2SAT 94
[2024-04-18] MEDS: Albuterol Sulfate (0.083%) 2.5 MG/3 ML VIAL.NEB INHALE ×2 (07:56→11:19)
[2024-04-18 08:00] VITALS: PULSE 79; RESP 18; O2SAT 97
[2024-04-18] MEDS: Insulin Lispro 100 UNIT/ML 3 ML VIAL SUBCUT ×2 (08:22→11:37)
[2024-04-18] MEDS: Insulin Glargine,Hum.rec.anlog 100 UNIT/ML 10 ML VIAL 35 UNIT SUBCUT (08:22)
[2024-04-18] MEDS: carvediloL 25 MG TABLET PO (08:23)
[2024-04-18] MEDS: QUEtiapine Fumarate 100 MG TABLET 150 MG PO (08:23)
[2024-04-18] MEDS: Gabapentin 100 MG CAPSULE PO ×2 (08:23→13:28)
[2024-04-18] MEDS: Simethicone 80 MG TAB.CHEW 160 MG PO ×2 (08:23→13:27)
[2024-04-18] MEDS: DULoxetine HCl 60 MG CAPSULE.DR PO (08:23)
[2024-04-18] MEDS: Prazosin HCL 1 MG CAPSULE 2 MG PO (08:23)
[2024-04-18] MEDS: Rivaroxaban 2.5 MG TABLET PO (08:23)
[2024-04-18] MEDS: Famotidine 20 MG TABLET PO (08:23)
[2024-04-18] MEDS: predniSONE 20 MG TABLET 40 MG PO (08:24)
[2024-04-18] MEDS: hydroCHLOROthiazide 25 MG TABLET PO (08:24)
[2024-04-18] MEDS: Empagliflozin 25 MG TABLET PO (08:24)
[2024-04-18] MEDS: Fluticasone Propionate Nasal 16 GM SPRAY 1 SPRAY NOSTRIL-B (08:24)
[2024-04-18 11:16] LABS: Glucose, Whole Blood 227 mg/dL (60-115)
[2024-04-18 11:20] VITALS: PULSE 91; RESP 18; O2SAT 94
--- NOTE | 2024-04-18 11:44 | PM.DS ---
DS: Providers Provider Date of Service: 04/18/24 Date of admission: 04/16/24 23:40 Date of discharge: 04/18/24 Primary care physician: Toro Perez MD Consults: 04/17/24 01:35 Consult to Orthopedics Routine Consulting Provider: [facility] Reason for consultation: Right knee pain Has provider been notified: No DS: Diagnosis Discharge Diagnosis (1) Gout of right knee: Status: Acute DS: Summary Hospital Course Hospital Course: admission hpi Chief Complaint: Right knee pain Patient is a 58-year-old male with history of hypertension, hyperlipidemia, type 2 diabetes mellitus, chronic renal failure, osteoarthritis, heart failure with preserved ejection fraction, prior CVA with residual left-sided weakness who presents to the emergency room from home complaining of progressively worsening pain in his right knee since 3 days ago. Onset of pain was spontaneous with no preceding trauma. He states that he woke up 3 days ago with the pain which has unfortunately gotten worse to a point where he now has limited motion around the knee and cannot bear any weight. He additionally describes experiencing easy fatigability though this preceded the pain. He denies any associated fevers or chills. Initial vital signs were notable for tachycardia with a heart rate of 124 beats per minute and elevated blood pressure of 171/91 mmHg. Initial blood work revealed a leukocytosis of 13.1 K with 74.4% neutrophils. His inflammatory markers including ESR and CRP were elevated at 75 and 9.65 respectively. He has stable renal insufficiency with a BUN of 27 and creatinine of 1.67 mg/dl. Serum magnesium was low at 1.4 while uric acid was slightly elevated at 9.0 mg/dL. Right knee arthrocentesis was performed and synovial fluid analysis report is pending. Hosptal course: He presented with right knee pain and initial concern septic arthritis, arthocentesis was done and was given empric antiiotics, fluid analysis retun with 2+ intracellular monosodium urate crystals consistent with gout and started on Prednisone, and colchicine and needs to follow up with PCP. He was seen by Ortho and no indication for procedure Time Attestation Discharge Coordination Time (in mins): 35 Quality: Safe Use of Opioids Does Pt have an Active Cancer Diagnosis on the Problem List?: No Quality: Stroke Does the patient have a stroke diagnosis?: No Physical Exam Vital Signs: Vital Signs: Last Vital Signs Temp 97.6 F 03/11/25 07:53 Pulse 91 04/18/24 11:20 Resp 18 04/18/24 11:20 BP 107/57 L 04/18/24 07:53 Pulse Ox 94 04/18/24 07:53 O2 Del Method Room Air 04/18/24 07:53 BMI result Body Mass Index 38.4 DS: Data Data Completed and Pending Labs on day of discharge: Laboratory Results - last 24 hr 04/17/24 04/17/24 04/17/24 13:17 18:21 21:08 POC Glucose 111 146 H 213 H 04/18/24 04/18/24 07:26 11:10 POC Glucose 173 H 227 H Preliminary micro results at discharge 04/16/24 22:41 Anaerobic Culture - Preliminary Knee aspirate No growth to date. Joint Fluid Culture - Preliminary No growth to date. 04/16/24 20:05 Blood Culture - Preliminary Blood - Venous No growth after 24 hours. 04/16/24 20:05 Blood Culture - Preliminary Blood - Venous No growth after 24 hours. Discharge Plan Discharge Anticipated Discharge Date/Time: 04/18/24 12:42 Patient Disposition: Home Health Service Discharge Diagnosis: Acute Gout Referrals: Toro Silva MD [Primary Care Provider] - 1 Week Discharge Medications: New oxycodone 5 mg Tablet 5 mg PO Q6H PRN (Reason: Pain, Moderate(Pain Scale 4-6)) Qty: 8 0RF Rx Instructions: Partial Fill upon patient request. colchicine [Colcrys] 0.6 mg Tablet 0.6 mg PO DAILY Qty: 7 0RF Rx Instructions: stop if you have diarrhea prednisone 10 mg tablet See Taper PO DIRECTED Qty: 12 0RF Taper: Prednisone 30 mg daily for 2 Days and 0 Hour 20 mg daily for 2 Days and 0 Hour 10 mg daily for 2 Days and 0 Hour Rx Instructions: see taper instructions Continued (DME) Wheelchair See Rx Instructions .Route .MEDSUPPLY Qty: 1 0RF Rx Instructions: As directed fluticasone propionate 50 mcg/actuation spray,suspension 1 spray intranasal DAILY albuterol sulfate 90 mcg/actuation HFA aerosol inhaler 2 puff INHALATION Q4-6H PRN (Reason: Wheezing) trazodone 150 mg tablet 150 - 300 mg PO BEDTIME PRN (Reason: insomnia) duloxetine 60 mg capsule,delayed release(DR/EC) 60 mg PO DAILY Trulicity 3 mg/0.5 mL pen injector 3 mg subcut WE pantoprazole 40 mg tablet,delayed release (DR/EC) 40 mg PO BID@0630,1630 insulin glargine [Lantus Solostar U-100 Insulin] 100 unit/mL (3 mL) insulin pen 35 unit subcut BID cetirizine [Zyrtec] 10 mg Tablet 10 mg PO DAILY PRN (Reason: ALLERGIES) famotidine 20 mg tablet 20 mg PO DAILY Linzess 290 mcg capsule 290 mcg PO DAILY topiramate 50 mg tablet 50 mg PO BEDTIME quetiapine 300 mg tablet extended release 24 hr 300 mg PO DAILY@1700 Rx Instructions: take on an empty stomach Xarelto 2.5 mg tablet 2.5 mg PO BID (DME) lancets [TRUEplus Lancets] 33 gauge misc See Rx Instructions .ROUTE .MEDSUPPLY Qty: 100 Rx Instructions: As directed gabapentin 100 mg capsule 100 mg PO TID albuterol sulfate 2.5 mg /3 mL (0.083 %) solution for nebulization 2.5 mg inhalation QID acetaminophen [Tylenol Extra Strength] 500 mg tablet 500 mg PO Q6H PRN (Reason: Pain) (DME) blood-glucose meter [FreeStyle Lite Meter] Kit See Rx Instructions .ROUTE .MEDSUPPLY Qty: 1 0RF Rx Instructions: As directed 3x/day ferrous sulfate [FeroSul] 325 mg (65 mg iron) tablet 325 mg PO BEDTIME chlorthalidone 25 mg tablet 25 mg PO DAILY atorvastatin 80 mg tablet 80 mg PO BEDTIME prazosin 2 mg capsule 2 mg PO BID carvedilol 25 mg tablet 25 mg PO BID (DME) FreeStyle Trell 3 [place] Misc See Rx Instructions .Route Qty: 1 0RF Rx Instructions: As directed (DME) FreeStyle Trell 3 Plus Sensor Device See Rx Instructions .Route Qty: 6 3RF Rx Instructions: As directed (DME) FreeStyle Lite Strips Strip See Rx Instructions .ROUTE QID Qty: 200 3RF Rx Instructions: four times daily (DME) lancets [FreeStyle Lancets] 28 gauge misc See Rx Instructions .Route Qty: 200 3RF Rx Instructions: four times daily (DME) pen needle, diabetic [Pentips Pen Needle] 32 gauge x 5/32 needle See Rx Instructions .ROUTE QID Qty: 100 3RF Rx Instructions: once daily Jardiance 25 mg tablet 25 mg PO DAILY simethicone [Gas Relief (simethicone)] 180 mg capsule 180 mg PO QID Qty: 120 6RF Repatha SureClick 140 mg/mL pen injector 140 mg subcut Q2W Qty: 2 5RF Rx Instructions: ON MONDAYS Discharge Orders: Discharge Order (Routine); Ordered 04/18/24 Ordered By: Bao Kenny Diet: Advance to usual diet Activity on Discharge: As tolerated Stand Alone Forms: Patient Portal Discharge page Print Language: Czech Care Plan Goals: Acute gout Health Concerns: Gout with right knee pain Plan of Treatment: Take Prednisone, and Colchicine as recommended and follow up with your doctor funmi week, call for appointment Assessment: see above
[2024-04-18 11:57] LABS: Uric Acid Synovial Fluid 9
[2024-04-18 11:58] LABS: Glucose Synovial Fluid 105; Total Protein Synovial Fluid 3.5
[2024-04-18] MEDS: Acetaminophen 325 MG TABLET 650 MG PO (11:59)
--- NOTE | 2024-04-18 13:15 | MHC.CM.PN ---
Per MD patient medically cleared for dc home w/ PT services through [facility] per request. ELECTRICAL AND INSTRUMENT TECHNICIAN at bedside to transport home. RN aware.
[2024-04-18] MEDS: Colchicine 0.6 MG TABLET PO (13:27)
--- NOTE | 2024-04-18 13:31 | W.MHC.F2F ---
Service Date Service Date: 04/18/24 Encounter Date of encounter: 04/18/24 Reasons for Services Signs and symptoms assessed: pain with ambulation due to gout of the right knee Reason for physical therapy: home safety and mobility and gait/transfer training Homebound: Leaving the home is medically contraindicated at this time without the asist of a device and/or another person due th the listed conditions above and below. Reason homebound: unsteady gait / fall risk and pain with ambulation Homebound supporting statement: homebound due to pain with ambulation from [facility] gout Certification: Based on the above findings, I certify that this patient is confined to the home and needs intermittent intermediate care, physical therapy and/or speech therapy, or continues to need occupational therapy. The patient is under my care, and I have initiated the establishment of the plan of care. The patient will be followed by a physician who will periodically review the plan of care. Time Spent With Patient Time: Total time managing care of this patient today ____ minutes.
== END 2024-04-18 14:32 | disposition home health service (06) | DRG 351 ==
LOC: HO.ED 22:53 → HO.EDOVER 23:45 → HO.S3 04-17 22:23
PROVIDERS: Physician Assistant Medical; Admitting Provider Internal Medicine; Emergency Provider Emergency Medicine Emergency Medical Services; PCP Internal Medicine; Visit Provider Internal Medicine
DX: M10.9 Gout, unspecified (principal); I13.0 Hypertensive heart and chronic kidney disease with heart failure and stage 1 through stage 4 chronic kidney disease, or unspecified chronic kidney disease; E11.42 Type 2 diabetes mellitus with diabetic polyneuropathy; I50.32 Chronic diastolic (congestive) heart failure; E11.22 Type 2 diabetes mellitus with diabetic chronic kidney disease; R65.10 Systemic inflammatory response syndrome (SIRS) of non-infectious origin without acute organ dysfunction; I69.354 Hemiplegia and hemiparesis following cerebral infarction affecting left non-dominant side; E78.5 Hyperlipidemia, unspecified; I25.10 Atherosclerotic heart disease of native coronary artery without angina pectoris; Z95.1 Presence of aortocoronary bypass graft; N18.31 Chronic kidney disease, stage 3a; Z79.4 Long term (current) use of insulin; Z79.85 Long-term (current) use of injectable non-insulin antidiabetic drugs; Z79.620 Long term (current) use of immunosuppressive biologic; Z79.899 Other long term (current) drug therapy
CPT/HCPCS: 36415; 73564; 73701; 80053; 82945; 82947; 83605; 83735; 84157; 84550; 84560; 85025; 85652; 86140; 86850; 86900; 86901; 87040; 87070; 87073; 87205; 89051; 89060; 93005; 97161; 99285; J0696; J1171; J2270; J3371; J3475; J7120; Q9967

== ENCOUNTER → 2024-04-16 16:11 | Outpatient (BNV) | payer MEDICAID, SELFPAY | PROVIDERS: Emergency Provider Emergency Medicine Emergency Medical Services; PCP Internal Medicine; Visit Provider Radiology Neuroradiology | DX: M25.461 Effusion, right knee (principal) | CPT/HCPCS: 73564; 73701 ==

== ENCOUNTER → 2024-04-16 17:22 | Outpatient (BNV) | payer MEDICAID, SELFPAY | PROVIDERS: Admitting Provider Internal Medicine; Emergency Provider Emergency Medicine Emergency Medical Services; PCP Internal Medicine; Visit Provider Internal Medicine | DX: R00.0 Tachycardia, unspecified (principal) | CPT/HCPCS: 93010 ==

== ENCOUNTER → 2024-04-16 23:40 | Outpatient (BNV) | payer MEDICAID, SELFPAY | PROVIDERS: Admitting Provider Internal Medicine; Emergency Provider Emergency Medicine Emergency Medical Services; PCP Internal Medicine; Visit Provider Internal Medicine | DX: M25.561 Pain in right knee (principal); M25.461 Effusion, right knee; R65.10 Systemic inflammatory response syndrome (SIRS) of non-infectious origin without acute organ dysfunction; I10 Essential (primary) hypertension | CPT/HCPCS: 99223 ==

== ENCOUNTER → 2024-04-16 23:40 | Outpatient (BNV) | payer MEDICAID, SELFPAY | PROVIDERS: Admitting Provider Internal Medicine; Emergency Provider Emergency Medicine Emergency Medical Services; PCP Internal Medicine | DX: M10.9 Gout, unspecified (principal) | CPT/HCPCS: 99222 ==

== ENCOUNTER 2024-04-24 08:51 | Outpatient (AMB) | payer MEDICAID, SELFPAY ==
--- NOTE | 2024-04-24 09:15 | A.OFFVIS_ITS ---
Intake Intake Visit Reasons: T2DM Bulldozer Engineer Required: Yes Bulldozer Engineer Language: Brass Bobbin Winder Name: Francesco [id number] Information Interpreted: non-clinical & clinical Accompanied by: Other Relationship Allergies shellfish derived Allergy (Severe, Verified 04/16/24 16:11) SWOLLEN THROAT apple [Apple] Allergy (Intermediate, Verified 04/16/24 16:11) SWELLING egg [Egg] Allergy (Intermediate, Verified 04/16/24 16:11) HIVES influenza virus vaccine, specific [Influenza Virus Vacc,Specific] Allergy (Intermediate, Verified 04/16/24 16:11) SWELLING lisinopril [Lisinopril] Allergy (Intermediate, Verified 04/17/24 08:17) Itching Penicillins Allergy (Mild, Verified 04/16/24 16:11) RASH nifedipine [From Procardia] Allergy (Unknown, Verified 04/16/24 16:11) UNKNOWN HPI Comprehensive Diabetes Asmnt Most Recent Diabetes Results: Hemoglobin A1c 13.9 % 02/20/19 Microalb/Creat Ratio TNP ug/mg cr 02/20/19 Cholesterol 106 mg/dL (<200) 12/15/23 HDL Cholesterol 33 mg/dL (>40) L 12/15/23 Triglycerides 141 mg/dL (<150) 12/15/23 Creatinine 1.46 mg/dL (0.5-1.4) H 04/17/24 Blood Urea Nitrogen 25 mg/dL (9-16) H 04/17/24 Sodium 138 mmol/L (135-145) 04/17/24 Potassium 4.1 mmol/L (3.3-5.1) 04/17/24 Chloride 109 mmol/L (96-108) H 04/17/24 Carbon Dioxide 20 mmol/L (22-29) L 04/17/24 Calcium 8.5 mg/dL (8.4-10.2) 04/17/24 AST 38 U/L (5-37) H 04/17/24 ALT 28 U/L (0-40) 04/17/24 Total Protein 7.1 g/dL (6.5-8.0) 04/17/24 Albumin 3.6 g/dL (3.5-5.0) 04/17/24 [facility] Medical History (Updated 04/17/24 @ 11:24 by JENNIFER Rincon) Benign skin lesion of cheek Pulmonary embolism Gastritis SUSY (acute kidney injury) Enteritis Epigastric pain Physical deconditioning SOB (shortness of breath) Colon cancer screening Dysphagia Uninodular goiter (nontoxic) Right knee pain Chronic pain Type 2 diabetes mellitus with polyneuropathy Upper abdominal pain H. pylori infection Obesity due to excess calories Blind right eye Goiter Cancer of eye Chronic kidney disease, stage 3 Hemiparesis affecting left side as late effect of cerebrovascular accident CHF (congestive heart failure) History of poliomyelitis GERD (gastroesophageal reflux disease) Morbid obesity Mood disorder Nasal polyps Angina of effort ARTEM (obstructive sleep apnea) Hemiplegia affecting dominant side Asthma Other pulmonary embolism and infarction Left ventricular hypertrophy Syncope Type 2 diabetes mellitus with hyperglycemia, with long-term current use of insulin Hyperlipidemia LDL goal <70 Essential hypertension Surgical History History of excision of lesion (~09/09/23) History of carpal tunnel surgery History of right knee joint replacement History of esophagogastroduodenoscopy (EGD) History of cardiac catheterization Hx of knee surgery History of coronary artery stent placement Family History Father Stroke Brain cancer CVD (cardiovascular disease) Diabetes Mother Diabetes Social History Household Members: Other Household Members Other:: CLINICAL EDUCATION CONSULTANT Housing: Apartment Are you a primary lead care manager to a significant other at home: No Do you presently have visiting nurse or other home services: Yes (CLINICAL EDUCATION CONSULTANT) Alcohol intake: never Patient Tobacco Use Status: Never used Tobacco Advance Directives Date on File: 11/08/20 service: No Assessment & Plan Assessment & Plan (1) Type 2 diabetes mellitus with hyperglycemia, with long-term current use of insulin: Code(s): E11.65 - Type 2 diabetes mellitus with hyperglycemia; Z79.4 - terminal manager (current) use of insulin Plan: Patient at visit to set up an insert Freestyle Trell 3 with [place] Instructed patient sensors water proof you can shower, or swim do not submerge sensor in water for over 30 minutes Is sensor falls off cannot put back in you need to replace sensor, customer service number given to patient for sensor replacement Sensor placed on the Back of Left arm Patient left visit with sensor in warmup Reviewed how to interpret trend arrows Reminded patient that to check finger sticks if symptoms do not match sensor reading. Discussed lag time between finger stick and sensor data.? Instructed patient she should always keep blood glucometer for backup testing if needed Reviewed delay of CGM from fingersticks Reminded pt that if symptoms do not match sensor still needs to check fingersticks. Portions of this note were created using voice recognition software, please excuse any words or phrases that may have been misinterpreted. Patient Instructions: Instrucciones para el paciente: CGM proporciona informaci?n sobre el control de la glucosa en melissa a lo shakira del d?a, incluidas la hiperglucemia y la hipog lucemia. Contin?e controlando la glucosa en melissa seg?n las instrucciones. Siga las pautas de nutrici?n proporcionadas. Informe cualquier molestia de inmediato al proveedor de atenci?n m?dica. Mantente valerie hidratado. Puede ba?arse, ducharse, nadar y hacer ejercicio mientras usa el sensor de glucosa. No sumerja el sensor de glucosa en agua rocío m?s de 30 minutos. Retire el sensor para manfred resonancia magn?nicki o manfred tomograf?a computarizada. Evite la m?quina de collette X en los aeropuertos: retire el sensor o solicite la varita Coding Level of Care Code Est Pt Level 1 (88952) Diagnoses Type 2 diabetes mellitus with hyperglycemia, with long-term current use of insulin E11.65; Z79.4
--- OUTSIDE RECORDS SUMMARY | 2024-04-24 09:15 | XMS_ITS | Encounter Summary ---
Author Organization [employer] Address [address] [place] [address] Care Team Providers Care Banking Services Officer Name Role Phone Toro Silva MD Primary Care Prov ider Reason for Visit * Reason Onset Date Comments Medication Question 03/07/2024 Encounter Details Date Type Department Care Team ([facility] Contact Info) Description 03/07/2024 Telephone [facility] MED & PEDS [address] [place], [place] [phone] Toro Silva MD [address] [place] [address] Medication Question Social History Tobacco Use Types [...] TC from erum regarding below message . Ceramic Capacitor Processor sent a secure chat to provider . Per Provider hold 2 days prior procedure, restart 1 day after * Telephone Encounter - Courtney Cortes - 03/07/2024 2:17 PM EST Tc from Erum at [facility] stating pt is scheduled for colonoscopy on 03/16/24 and Erum would like a call back to advise on holding off on medication Xarelto 2.5 MG tablet Contact Erum [phone] opt 5 documented in this encounter Plan of Treatment Not on file documented as of this encounter Visit Diagnoses Not on filedocumented in this encounter Additional Health Concerns Assessment Noted Time PHQ-9 Depression Total Score: 11 023 9:53 AM EST documented as of this encounter Care Teams Banking Services Officer Relationship Specialty Start Date End Date Toro Silva MD [address] [place] [phone] PCP - General Internal Medicine 07/09/19 Grazyna Alvarado Pre Certification SpecialistRefinery Operator Helper Cracking Unit 08/06/23 documented as of this encounter
--- OUTSIDE RECORDS SUMMARY | 2024-04-24 09:15 | XMS_ITS | Encounter Summary ---
Author Organization [employer] Address [address] [place] [address] Care Team Providers Care Hospice Art Therapist Name Role Phone Toro Silva MD Primary Care Prov ider Encounter Details Date Type Department Care Team (Late st Contact Info) Description 03/05/2022 Orders Only [facility] [address] [place] [address] Toro Silva MD [address] [place], [place] [phone] Disorder of vision (Primary Dx) Social History [...] PM EDT 10/21/2022 3:10 PM EDT Narrative [facility] - 10/22/2022 2:46 PM EDT ----- ------- Name: Davon Gonzalez ? Age/Sex: 57/M ? : 1965 Unit#: [id number] ?? Attend Dr: Valente Drake MD ?Re10/21/22 ?Status: DEP SDC ? Location: HO.SSS ?Disch: ? ----- ------- SPEC : [id number] ? RECD: 10/21/22-1460 ? STATUS: ??SOUT ? REQ NUM: [id number] ? ARLYN: 10/21/22-1331 ? SUBM DR: Valente [...] Silva MD ?? [address] ?? [place] [address] ?? [phone] ? CONTINUED ON NEXT PAGE ----- ------- Name: Davon Gonzalez ? Age/Sex: 57/M ? : 1965 Unit#: [id number] ?? Attend Dr: Valente Drake MD ?Re10/21/22 ?Status: DEP SDC ? Location: HO.SSS ?Disch: ? ----- ------- SPEC : [id number] ? RECD: 10/21/22-1509 ? STATUS: ??SOUT ? REQ NUM: [id number] ? ARLYN: 10/21/22-1331 ? SUBM DR: Valente Drake MD ? ENTERED: ??10/21/22-1509 ?SP TYPE: Surgical ? OTHR DR: Toro Silva MD ORDERED: ??HE Stain/6, Gross Micro L4/2 ? Copies To: ??(Continued) ?? Valente Drake MD ?? [address] [facility] ?? [place] [address] ?? [phone] ----- ------- Signed (signature on file) Jennifer Frederick 10/22/22 1446 ? ----- ------- ? END OF REPORT ? us [facility] External Provider LAB BLO OD ORDERABLES Final Result [facility] [address] [facility] [place] [address] [phone] * (ABNORMAL) Glucose, Whole Blood (10/21/2022 11:49 AM EDT) Glucose, Whole Blood 143(H) 60 - 115 mg/dL [facility] Comment:METER #: [id number] 10/21/2022 11:4 9 AM EDT 10/21/2022 11:52 AM EDT us [facility] External Provider LAB BLO OD ORDERABLES Final Result [facility] [address] [place] [address] [phone] documented in this encounter Visit Diagnoses Diagnosis Disorder of vision- Primary documented in this encounter Care Teams Hospice Art Therapist Relationship Specialty Start Date End Date Toro Silva MD [address] [place] [address] PCP - General Internal Medicine 07/09/19 Grazyna Alvarado Welfare AdviserPressing Machine Operator 08/06/23 documented as of this encounter
--- OUTSIDE RECORDS SUMMARY | 2024-04-24 09:15 | XMS_ITS | Encounter Summary ---
Author Organization [employer] Address [address] [place] [address] Care Team Providers Care Prawn Trawler Hand Name Role Phone Toro Silva MD Primary Care Prov ider Reason for Visit * Reason Onset Date Comments PT-1 01/17/2024 Encounter Details Date Type Department Care Team ([facility] st Contact Info) Description 01/17/2024 Telephone [facility] [address] [place] [address] Toro Silva MD [address] [place] [address] PT-1 Social History Tobacco Use Types Packs/Day [...] Y/N: Yes Provider name or facility name: [facility] Escort needed: Y/N: Yes Do you [...] documented as of this encounter Care Teams Prawn Trawler Hand Relationship Specialty Start Date End Date Toro Silva MD [address] [place] [address] PCP - General Internal Medicine 07/09/19 Grazyna Alvarado Director Of BroadcastManager Telecom 08/06/23 documented as of this encounter
--- OUTSIDE RECORDS SUMMARY | 2024-04-24 09:15 | XMS_ITS | Encounter Summary ---
Author Organization [employer] Address [address] [facility] [address] [place] [address] Care Team Providers Care Medical Anthropology Director Name Role Phone Toro Silva MD Primary Care Prov ider Reason for Visit * Reason Comments Med Refill Encounter Details Date Type Department Care Team (Late st Contact Info) Description 10/16/2022 Refill [facility] [address] [place], [place] [phone] Toro Silva MD [address] [place], [place] [phone] Chronic pain syndrome Social History Tobacco Use [...] as of this encounter Care Teams Medical Anthropology Director Relationship Specialty Start Date End Date Toro Silva MD [address] [place] [address] PCP - General Internal Medicine 07/09/19 Grazyna Alvarado Quality Assurance TesterActuarial Trainee 08/06/23 documented as of this encounter
--- OUTSIDE RECORDS SUMMARY | 2024-04-24 09:15 | XMS_ITS | Encounter Summary ---
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
--- OUTSIDE RECORDS SUMMARY | 2024-04-24 09:15 | XMS_ITS | Encounter Summary ---
Author Organization [employer] Address [address] [place] [address] Care Team Providers Care Grades 1 Thru 6 Visiting Teacher Name Role Phone Toro Silva MD Primary [...] Procedure Name Priority Date/Time Associated Diagnosis Comments XR KNEE 4+ VIEWS RIGHT Routine 04/16/2024 7:10 PM EDT GLUCOSE, WHOLE BLOOD Routine 04/06/2024 1:24 PM EST documented in this encounter Results * XR Knee 4+ Views Right (04/16/2024 7:10 PM EDT) Anatomical Region Laterality Modality Lower Extremities, Knee Right [employer] [facility] 04/16/2024 7:10 PM EDT Narrative 04/16/2024 7:11 PM EDT ? [facility] ?[address] ?[place] [address] ?XRay Report ? Signed ? Patient: Davon Gonzalez ?MR#: [id number] ? : 1965 ?Acct:[id number] ? Age/Sex: 58 / M ?ADM Date: 04/16/24 ? Loc: HO.ED ? Attending Dr: ? Ordering Physician: Eduardo Kiser ?? Date of Service: 04/16/24 ?? Procedure(s): XR knee RT 4V ?? Accession Number(s): [id number] ? cc: Eduardo Kiser; Toro Silva MD ? CLINICAL HISTORY: Right knee pain ? 4 view right knee ? Comparison: X-rays of the right knee from 04/08/2020 ? Findings: ?? No significant change in right knee arthroplasty hardware or adjacent ?? palmar. Emfywehn-mz-vtcan effusion present. No new fracture or lucency. ?? Old healed fracture of the proximal fibula diaphysis unchanged with bony ?? bridging and angulation. ?? Vascular calcifications are redemonstrated. ? IMPRESSION: ?? 1. No hardware loosening or significant change of the right knee ?? arthroplasty hardware compared to 04/08/2020. ? 2. Ivhlockv-fm-hhjbq effusion present. ? This document has been electronically signed by: Brandin Gatica MD on ?? 04/16/2024 19:10:06 ? Dictated By: ?Brandin Gatica MD ? Signed By: ?<Electronically signed by Brandin Gatica MD in OV> ? 04/16/241910 ? DD/ 09 ? TD/TT: 04/16/241909 ? Radio Commentator: ? Procedure Note Donmerlinter, Image - 04/16/2024 [place] [address] XRay Report Signed Patient: Davon GonzalezMR#: [id number] : 1965Acct:[id number] Age/Sex: 58 / MADM Date: 04/16/24 Loc: HO.ED Attending Dr: Ordering Physician: Eduardo Kiser Date of Service: 04/16/24 Procedure(s): XR knee RT 4V Accession Number(s): [id number] cc: Eduardo Kiser; Toro Silva MD CLINICAL HISTORY: Right knee pain 4 view right knee Comparison: X-rays of the right knee from 04/08/2020 Findings: No significant change in right knee arthroplasty hardware or adjacent palmar. Qdpdeieb-eb-jilsl effusion present. No new fracture or lucency. Old healed fracture of the proximal fibula diaphysis unchanged with bony bridging and angulation. Vascular calcifications are redemonstrated. IMPRESSION: 1. No hardware loosening or significant change of the right knee arthroplasty hardware compared to 04/08/2020. 2. Ywmqxtii-ms-ifxgb effusion present. This document has been electronically signed by: Brandin Gatica MD on 04/16/2024 19:10:06 Dictated By: Brandin Gatica MD Signed By: <Electronically signed by Brandin Gatica MD in OV> 04/16/241910 DD/ 09 TD/TT: 04/16/241909 Radio Commentator: us [facility] External Provider IMG XR PROCEDURES Edited Result - Final * Glucose, Whole Blood (04/06/2024 1:24 PM EST) Glucose, Whole Blood 108 60 - 115 mg/dL [facility] Comment:METER #: [id number] Testing performed in the Endocrinology Department [address] , [address], [facility]. 04/06/2024 1:24 PM EST 04/06/2024 1:29 PM EST us Generic External Data Provider LAB BLOOD ORDERAB LES Final Result [facility] [address] [place] [address] [phone] documented in this encounter Visit Diagnoses Not on filedocumented in this encounter Additional Health Concerns Assessment Noted Time PHQ-9 Depression Total Score: 11 023 9:53 AM EST documented as of this encounter Care Teams Grades 1 Thru 6 Visiting Teacher Relationship Specialty Start Date End Date Toro Silva MD [address] [place] [address] PCP - General Internal Medicine 07/09/19 Grazyna Alvarado Associate TeacherAnthropology And Archeology Instructor 08/06/23 documented as of this encounter
--- OUTSIDE RECORDS SUMMARY | 2024-04-24 09:15 | XMS_ITS | Encounter Summary ---
Author Organization [employer] Address [address] [facility] [address] [place] [address] Care Team Providers Care Denture Packer Name Role Phone Toro Silva MD Primary Care Prov ider Reason for Visit * Reason Comments Med Refill Encounter Details Date Type Department Care Team (Late st Contact Info) Description 02/22/2024 Refill [facility] MEDICINE [address] [place] [address] Toro Silva MD [address] [place], [place] [phone] Primary hypertension Social History Tobacco Use Types [...] documented as of this encounter Care Teams Denture Packer Relationship Specialty Start Date End Date Toro Silva MD [address] [place] [address] PCP - General Internal Medicine 07/09/19 Grazyna Alvarado Electronics Warfare TechnicianCart Attendant 08/06/23 documented as of this encounter
--- OUTSIDE RECORDS SUMMARY | 2024-04-24 09:15 | XMS_ITS | Encounter Summary ---
Author Organization [employer] Address [address] [facility] 7t [place] [address] Care Team Providers Care Mash Processing Operator Name Role Phone Toro Silva MD Primary Care Prov ider Reason for Visit * Reason Comments Med Refill Encounter Details Date Type Department Care Team (Late st Contact Info) Description 03/03/2022 Refill [facility] CHC MED & PEDS [address] [place] [address] Toro Silva MD [address] [place] [address] Chronic pain syndrome Social History Tobacco Use [...] syndrome documented in this encounter Care Teams Mash Processing Operator Relationship Specialty Start Date End Date Toro Silva MD [address] [place] [address] PCP - General Internal Medicine 07/09/19 Grazyna Alvarado What Job Titles MeanPolisher Numeral 08/06/23 documented as of this encounter
--- OUTSIDE RECORDS SUMMARY | 2024-04-24 09:15 | XMS_ITS | Encounter Summary ---
Author Organization [employer] Address [address] [facility] [address] [place] [address] Care Team Providers Care Vp Patient Name Role Phone Toro Silva MD Primary Care Prov ider Reason for Visit * Reason Onset Date Comments Durable Medical Equipment 12/20/2023 Encounter Details Date Type Department Care Team ([facility] st Contact Info) Description 12/20/2023 Telephone [facility] MEDICINE [address] [place], [place] [phone] Toro Silva MD [address] [place] [address] Durable Medical Equipment Social History Tobacco Use [...] documented as of this encounter Care Teams Vp Patient Relationship Specialty Start Date End Date Toro Silva MD [address] [place] [address] PCP - General Internal Medicine 07/09/19 Grazyna Alvarado Dining Room CoordinatorPerformance Test Consultant 08/06/23 documented as of this encounter
--- OUTSIDE RECORDS SUMMARY | 2024-04-24 09:15 | XMS_ITS | Encounter Summary ---
Author Organization [employer] Address [address] [facility] 7t [place] [address] Care Team Providers Care Brickmason Contractor Name Role Phone Toro Silva MD Primary Care Prov ider Reason for Visit * Reason Onset Date Comments c/b request 2022 Encounter Details Date Type Department Care Team ([facility] st Contact Info) Description 2022 Telephone [facility] CHC MED & PEDS [address] [place], [place] [phone] Toro Silva MD [address] [place] [address] c/b request Social History Tobacco Use Types [...] for a call back. TC placed to [facility] Gastro no answer left a message for Joan on voice mail gave [facility] direct number for a call back TC placed to pt for a third time and another message was left for him to contact the [facility] nurses. Several messages also left at Gastro office with no call back will send to PCP as FYI. * Telephone Encounter - Carolyn Cha RN - 10/19/2022 11:24 AM EDT Tc from [place] with [facility] requesting a call in regards to pt upcoming colonoscopy appointment on 10/21 Please contact joan at [phone] TC returned to [place] and a message was left for a [...] for a call back. TC placed to [facility] Gastro no answer left a message for Joan on voice mail gave [facility] direct number for a call back * Telephone Encounter - Gianna Antonio - 2022 10:37 AM EDT Tc from [place] with [facility] requesting a call in regards to pt upcoming colonoscopy appointment on 10/21 Please contact joan at [phone] documented in this encounter Plan of Treatment Not on file documented as of this encounter Visit Diagnoses Not on filedocumented in this encounter Additional Health Concerns Assessment Noted Time PHQ-9 Depression Total Score: 0 07/02/19 9:45 AM EDT documented as of this encounter Care Teams Brickmason Contractor Relationship Specialty Start Date End Date Toro Silva MD [address] [place] [address] PCP - General Internal Medicine 07/09/19 Grazyna Alvarado Testing Shaking ShippingA Auxiliary 08/06/23 documented as of this encounter
--- OUTSIDE RECORDS SUMMARY | 2024-04-24 09:16 | XMS_ITS | Encounter Summary ---
Author Organization [employer] Address [address] [facility] [address] [place] [address] Care Team Providers Care Machinery Mover Name Role Phone Toro Silva MD Primary Care Prov ider Reason for Visit * Reason Comments Care Coordination [facility] Encounter Details Date Type Department Care Team ([facility] Contact Info) Description 04/20/2024 Telephone [facility] MEDICINE [address] [place] [address] Toro Silva MD [address] [place] [address] Care Coordination ([facility]) Social History Tobacco Use Types Packs/Day Years [...] AM EDT documented as of this encounter Progress Notes * Tracie Galvez RN - 04/20/2024 2:55 PM EDT [facility] Notifying [facility] that patient was referred to [facility] for PT from [facility]. Patient will be beginning PT on 04/27/24. Messagesent to PCP for notification. documented in this encounter Plan of Treatment Not on file documented as of this encounter Visit Diagnoses Not on filedocumented in this encounter Additional Health Concerns Assessment Noted Time PHQ-9 Depression Total Score: 11 023 9:53 AM EST documented as of this encounter Care Teams Machinery Mover Relationship Specialty Start Date End Date Toro Silva MD [address] [place] [address] PCP - General Internal Medicine 07/09/19 Grazyna Alvarado Chief Enterprise ArchitectMri Technician 08/06/23 documented as of this encounter
--- OUTSIDE RECORDS SUMMARY | 2024-04-24 09:16 | XMS_ITS | Encounter Summary ---
Author Organization [employer] Address [address] [facility] [address] [place] [address] Care Team Providers Care Public Space Attendant Name Role Phone Toro Silva MD Primary Care Prov ider Reason for Visit * Reason Onset Date Comments Med Refill 08/12/2022 Encounter Details Date Type Department Care Team ([facility] st Contact Info) Description 08/12/2022 Telephone [facility] CHC MED & PEDS [address] [place], [place] [phone] Toro Silva MD [address] [place] [address] Med Refill Social History Tobacco Use Types [...] as of this encounter Care Teams Public Space Attendant Relationship Specialty Start Date End Date Toro Silva MD [address] [place] [id number] PCP - General Internal Medicine 07/09/19 Grazyna Alvarado Integrated Program TeacherQuality Review Trainer 08/06/23 documented as of this encounter
--- OUTSIDE RECORDS SUMMARY | 2024-04-24 09:16 | XMS_ITS | Encounter Summary ---
Author Organization [employer] Address [address] [facility] [address] [place] [address] Care Team Providers Care Portfolio Specialist Name Role Phone Toro Silva MD Primary Care Prov ider Reason for Visit * Reason Onset Date Comments Hospital Follow-up 04/20/2024 Encounter Details Date Type Department Care Team ([facility] st Contact Info) Description 04/20/2024 Telephone [facility] CHC MED & PEDS [address] [place], [place] [phone] Toro Silva MD [address] [place] [address] Hospital Follow-up Social History Tobacco Use Types Packs/Day Years [...] encounter Miscellaneous Notes * Telephone Encounter - Calvin Cox - 04/21/2024 10:14 AM EDT Tc from pt returning call regarding Prior message. Contact pt at [phone] * Telephone Encounter - Courtney Cortes - 04/20/2024 10:47 AM EDT TC from pt SALES PERSON Tonya returning call to care attendant regarding HDF. Contact Tonya at [phone] documented in this encounter Plan of Treatment Not on file documented as of this encounter Visit Diagnoses Not on filedocumented in this encounter Additional Health Concerns Assessment Noted Time PHQ-9 Depression Total Score: 11 023 9:53 AM EST documented as of this encounter Care Teams Portfolio Specialist Relationship Specialty Start Date End Date Toro Silva MD [address] [place] [id number] PCP - General Internal Medicine 07/09/19 Grazyna Alvarado Visual Display AssociateTransport Analyst 08/06/23 documented as of this encounter
--- OUTSIDE RECORDS SUMMARY | 2024-04-24 09:16 | XMS_ITS | Encounter Summary ---
Author Organization [employer] Address [address] [facility] [address] [place] [address] Care Team Providers Care Hay Farmer Name Role Phone Toro Silva MD Primary Care Prov ider Reason for Visit * Reason Onset Date Comments Med Refill 09/29/2023 Encounter Details Date Type Department Care Team ([facility] st Contact Info) Description 09/29/2023 Telephone [facility] MEDICINE [address] [place], [place] [phone] Toro Silva MD [address] [place] [address] Med Refill Social History Tobacco Use Types [...] 100 MG capsule To be sent to: [facility] Pharmacy documented in this encounter Plan of Treatment Not on file documented as of this encounter Visit Diagnoses Not on filedocumented in this encounter Additional Health Concerns Assessment Noted Time PHQ-9 Depression Total Score: 11 023 9:53 AM EST documented as of this encounter Care Teams Hay Farmer Relationship Specialty Start Date End Date Toro Silva MD [address] [place] [address] PCP - General Internal Medicine 07/09/19 Grazyna Alvarado Investigations ConsultantFirst Assist 08/06/23 documented as of this encounter
--- OUTSIDE RECORDS SUMMARY | 2024-04-24 09:16 | XMS_ITS | Encounter Summary ---
Author Organization [facility] Address [address] 7[address] [place] [address] Care Team Providers Care Assembler Convertible Top Name Role Phone Toro Silva MD Primary Care Prov ider Encounter Details Date Type Department Care Team (Late st Contact Info) Description 04/16/2024 Orders Only GENERIC EXTERNAL DATA DEPARTMENT Provider, [...] Procedure Name Priority Date/Time Associated Diagnosis Comments CT KNEE W CONTRAST RIGHT Routine 04/16/2024 10:55 PM EDT TYPE AND SCREEN Routine 04/16/2024 10:51 PM EDT CELL COUNT AND DIFFERENTIAL, SYNOVIAL FLUID Routine 04/16/2024 10:41 PM EDT LACTIC ACID Routine 04/16/2024 8:05 PM EDT CBC WITH AUTO DIFFERENTIAL Routine 04/16/2024 7:54 PM EDT SED RATE BY MODIFIED WESTERGREN Routine 04/16/2024 7:54 PM EDT C-REACTIVE PROTEIN Routine 04/16/2024 7: 54 PM EDT URIC ACID Routine 04/16/2024 7:54 PM EDT MAGNESIUM Routine 04/16/2024 7:54 PM EDT COMPREHENSIVE METABOLIC PANEL Routine 04/16/2024 7:54 PM EDT documented in this encounter Results * CT Knee w/ Contrast Right (04/16/2024 10:55 PM EDT) Anatomical Region Laterality Modality Lower Extremities, Knee Right Computed Tomography 04/16/2024 10:5 5 PM EDT Narrative 04/16/2024 10:56 PM EDT ? [facility] ?[address] ?[place] [address] ? CT Scan Report ? Signed ? Patient: Carlos,Davon ?MR#: [id number] ? : 1965 ?Acct:[id number] ? Age/Sex: 58 / M ?ADM Date: 04/16/24 ? Loc: HO.ED ? Attending Dr: ? Ordering Physician: Nubia Ordonez ?? Date of Service: 04/16/24 ?? Procedure(s): CT knee RT w IV con ?? Accession Number(s): [id number] ? cc: Toro Silva MD; Nubia Ordonez ? Report Number: ?? [id number]: Total DLP = ??200.00 mGy-cm ? CLINICAL HISTORY: septic joint..s p TKR ? Exam: CT of the right knee with contrast. ? Comparison: X-rays of the right knee from 05/06/2024 ? Findings: Redemonstration of the large effusion. Soft tissue ?? calcifications including quadriceps tendon. No suspicious lucency or ?? hardware loosening of right knee arthroplasty. Old healed fibula diaphysis ?? fractures redemonstrated. Periosteal thickening of the proximal tibia as ?? can be seen with venous stasis and stress phenomenon. No defined ?? intramuscular or superficial soft tissue abscess of the imaged soft ?? tissues, with marked artifacts from the hardware. ? 1. Large effusion present. ?? 2. No intramuscular abscess or superficial abscess of the imaged soft ?? tissues in the study with artifact from the knee arthroplasty metal. ? This document has been electronically signed by: Brandin Gatica MD on ?? 04/16/2024 22:55:22 ? Dictated By: ?Brandin Gatica MD ? Signed By: ?<Electronically signed by Brandin Gatica MD in OV> ? 04/16/242255 ? DD/ 54 ? TD/TT: 04/16/242254 ? Review Scheduling Coordinator: ? Procedure Note Jordi Andre - 04/17/[address] [address] [address] Scan Report Signed Patient: Ra CarlosMari#: [id number] : 1965Acct:[id number] Age/Sex: 58 / MADM Date: 04/16/24 Loc: HO.ED Attending Dr: Ordering Physician: Nubia Ordonez Date of Service: 04/16/24 Procedure(s): CT knee RT w IV con Accession Number(s): [id number] cc: Toro Silva MD; Nubia Ordonez Report Number: [id number]: Total DLP = 200.00 mGy-cm CLINICAL HISTORY: septic joint..s p TKR Exam: CT of the right knee with contrast. Comparison: X-rays of the right knee from 05/06/2024 Findings: Redemonstration of the large effusion. Soft tissue calcifications including quadriceps tendon. No suspicious lucency or hardware loosening of right knee arthroplasty. Old healed fibula diaphysis fractures redemonstrated. Periosteal thickening of the proximal tibia as can be seen with venous stasis and stress phenomenon. No defined intramuscular or superficial soft tissue abscess of the imaged soft tissues, with marked artifacts from the hardware. 1. Large effusion present. 2. No intramuscular abscess or superficial abscess of the imaged soft tissues in the study with artifact from the knee arthroplasty metal. This document has been electronically signed by: Brandin Gatica MD on 04/16/2024 22:55:22 Dictated By: Brandin Gatica MD Signed By: <Electronically signed by Brandin Gatica MD in OV> 04/16/242255 DD/ 54 TD/TT: 04/16/242254 Review Scheduling Coordinator: [facility] External Provider IMG CT PROCEDURES Edited Result - Final * Type and screen (04/16/2024 10:51 PM EDT) Blood Type AP [facility] Antibody Screen NEGATIVE [facility] 04/16/2024 10:5 1 PM EDT 04/16/2024 10:54 PM EDT Generic External Data Provider LAB BLOOD BANK TE ST ORDERABLES Final Result [facility] [address] [place] [phone] * Cell Count and Differential, Synovial Fluid (04/16/2024 10:41 PM EDT) Source Synovial Fluid right knee [facility] WBC Synovial Fluid 6.521 X10*3/u L [facility] Comment:Body Fluid WBC is a total nucleated cell count.When a differential is performed, the specimen isconcentrated by cytocentrifugation. This sometimes resultsin the number of cells in the differential being greaterthan the actual cell count performed on thenon-concentrated specimen. Synovial Fluid RBC 0.015 X10*6/u L [facility] Comment:The reference interv al(s) and other method performancespecifications are unavailable for this body fluid.Comparison of the result with concentration in the blood,serum, or plasma is recommended. Neutrophils Synovial Fluid 84 % [facility] Lymphocytes Synovial Fluid 3 % [facility] Monocytes Synovial Fluid 13 % [facility] 04/16/2024 10:4 1 PM EDT 04/16/2024 10:46 PM EDT Narrative [facility] - 04/16/2024 11:28 PM EDT [id number] knee us Generic External Data Provider LAB BODY FLUIDS A ND STOOLS ORDERABLES Final Result Performing Organization Address [facility]/ZIP Co de Phone Number [facility] [address] [place] [phone] * Lactic Acid (04/16/2024 8:05 PM EDT) Lactic Acid 1.1 0.5 - 2.0 mmol/L [facility] 04/16/2024 8:05 PM EDT 04/16/2024 8:25 PM EDT Generic External Data Provider LAB BLOOD ORDERAB LES Final Result Performing Organization Address [facility]/ZIP Co de Phone Number [facility] [address] [place] [phone] * (ABNORMAL) Sed Rate by Modified Westergren (04/16/2024 7:54 PM EDT) Erythrocyte Sedimentation Rate 75(H) 0 - 15 MM/HR [facility] Comment:Patients with polycy themia and many hemoglobin abnormalitiesmay have depressed sed rates whereas patients with anemiamay have elevated sed rates. 04/16/2024 7:54 PM EDT 04/16/2024 7:56 PM EDT us Generic External Data Provider LAB BLOOD ORDERAB LES Final Result Performing Organization Address [facility] Co de Phone Number [facility] [address] [place] [phone] * (ABNORMAL) Uric acid (04/16/2024 7:54 PM EDT) Uric Acid 9.0(H) 3.4 - 7.0 mg/dL [facility] 04/16/2024 7:54 PM EDT 04/16/2024 7:56 PM EDT us Generic External Data Provider LAB BLOOD ORDERAB LES Final Result Performing Organization Address [facility] Co de Phone Number [facility] [address] [place] [phone] * (ABNORMAL) C-reactive Protein (04/16/2024 7:54 PM EDT) C Reactive Protein 9.65(H) < or = 0.50 mg/dL [facility] 04/16/2024 7:54 PM EDT 04/16/2024 7:56 PM EDT us Generic External Data Provider LAB BLOOD ORDERAB LES Final Result Performing Organization Address [facility] Co de Phone Number [facility] [address] [place] [phone] * (ABNORMAL) Magnesium (04/16/2024 7:54 PM EDT) Pathologist [facility] Magnesium 1.4(LL) 1.6 - 2.6 mg/dL [facility] Comment:Critical value for t est(s): MAGS Results called to mi back by: Elder ELIAS Person calling: [id number] Date: 04/16/24Time:2015 04/16/2024 7:54 PM EDT 04/16/2024 7:56 PM EDT us Generic External Data Provider LAB BLOOD ORDERAB LES Final Result [facility] [address] [place] [phone] * (ABNORMAL) Comprehensive Metabolic Panel (04/16/2024 7:54 PM EDT) Pathologist [facility] Sodium 141 135 - 145 mmol/L [facility] Potassium 4.0 3.3 - 5.1 mmol/L [facility] Chloride 105 96 - 108 mmol/L [facility] Carbon Dioxide 25 22 - 29 mmol/L [facility] Anion Gap 15 12 - 20 [facility] Urea Nitrogen (BUN) 27(H) 9 - 16 mg/dL [facility] Creatinine, Serum 1.67(H) 0.5 - 1.4 mg/dL [facility] Creatinine Clr Calc Pharmacy 50.6 [facility] Comment:eGFR (calculated fro m the MDRD study equation) and eCrCl(calculated from the Cockcroft-Gault equation) are based ondifferent parameters and may not yield comparable results.If eCrCl result is absurd, please check patient'sheight/weight. Estimated Glomerular Filt Rate 42 [facility] Comment:Chronic Kidney Disea se: Estimated GFR < 60 mL/min/1.85c9Koakqk Kidney Disease: Estimated GFR < 15 mL/min/1.73m2 Glucose 139(H) 60 - 115 mg/dL [facility] Calcium 9.6 8.4 - 10.2 mg/dL [facility] Bilirubin, Total 0.6 0.0 - 1.0 mg/dL [facility] Aspartate Amino Transferase 18 5 - 37 U/L [facility] Alanine Aminotransferase 14 0 - 40 U/L [facility] Total Protein 8.5(H) 6.5 - 8.0 g/dL [facility] Albumin Level 4.2 3.5 - 5.0 g/dL [facility] Alkaline Phosphatase 86 39 - 117 U/L [facility] 04/16/2024 7:54 PM EDT 04/16/2024 7:56 PM EDT us Generic External Data Provider LAB BLOOD ORDERAB LES Final Result [facility] [address] [place] [phone] * (ABNORMAL) CBC auto differential (04/16/2024 7:54 PM EDT) White Blood Count 13.1(H) 4.8 - 10.8 X10*3/uL [facility] Red Blood Count 4.34(L) 4.60 - 5.80 X10*6/uL [facility] Hemoglobin 12.6(L) 14.0 - 18.0 g/dl [facility] Hematocrit 37.4(L) 42.0 - 52.0 % [facility] Mean Corpuscular Volume 86.2 80.0 - 98.0 fL [facility] Mean Corpuscular Hemoglobin 29.0 27.0 - 33.0 pg [facility] Mean Corpuscular HGB Conc 33.7 31.0 - 36.0 g/dl [facility] Red Cell Distribution Width 13.4 11.0 - 16.0 % [facility] Platelet Count 266 160 - 400 X10*3/uL [facility] Mean Platelet Volume 10.4 9.4 - 12.4 fL [facility] Neutrophils Percent Auto 74.4(H) 45 - 73 % [facility] Imm Gran Pct Auto 0.4 0.0 - 0.4 % [facility] Lymphocytes Percent Auto 16.4(L) 20 - 40 % [facility] Monocytes Percent Auto 8.3 2 - 11 % [facility] Eosinophils Percent Auto 0.3 0 - 4 % [facility] Basophils Percent Auto 0.2 0 - 2 % [facility] NRBC Pct Auto 0.0 0.0 - 0.2 /100WBC [facility] Neutrophils Absolute Auto 9.7(H) 2.0 - 8.3 x10*3/uL [facility] Imm Gran Abs Auto 0.05(H) 0.00 - 0.03 X10*3/uL [facility] Lymphocytes Absolute Auto 2.2 1.2 - 4.9 X10*3/uL [facility] Monocytes Absolute Auto 1.1 0.1 - 1.2 X10*3/uL [facility] Eosinophils Absolute Auto 0.0 0.0 - 0.4 X10*3/uL [facility] Basophils Absolute Auto 0.0 0.0 - 0.2 X10*3/uL [facility] NRBC Abs Auto 0.000 0.0 - 0.012 X10*3/uL [facility] 04/16/2024 7:54 PM EDT 04/16/2024 7:56 PM EDT us Generic External Data Provider LAB BLOOD ORDERAB LES Final Result [facility] [address] [place] [phone] documented in this encounter Visit Diagnoses Not on filedocumented in this encounter Additional Health Concerns Assessment Noted Time PHQ-9 Depression Total Score: 11 023 9:53 AM EST documented as of this encounter Care Teams Assembler Convertible Top Relationship Specialty Start Date End Date Toro Silva MD [address] [place] [phone] PCP - General Internal Medicine 07/09/19 Grazyna Alvarado Cream DipperSuperintendent Mechanical 08/06/23 documented as of this encounter
--- OUTSIDE RECORDS SUMMARY | 2024-04-24 09:16 | XMS_ITS | Encounter Summary ---
Author Organization [employer] Address [address] [facility] [address] 7t [place] [address] Care Team Providers Care Wagon Driver Name Role Phone Toro Silva MD Primary Care Prov ider Reason for Visit * Reason Comments Transition Of Care (Tcm) HDF- LVM Encounter Details Date Type Department Care Team ([facility] st Contact Info) Description 04/20/2024 Patient Outreach [facility] CH[facility] MED & PEDS [address] [place], [place] [phone] Toro Silva MD [address] [place] [address] Transition Of Care (Tcm) (HDF- LVM ) Social History Tobacco Use Types Packs/Day Years [...] as of this encounter Miscellaneous Notes * Significant Event - Shey Urrutia - 04/20/2024 11:21 AM EDT 04/20/24 1120 Hospital Discharges and Admission for [facility] Type of Visit Hospital Admission Date of Admission/Visit 04/16/24 Date of Discharge 04/18/24 Facility [facility] Diagnosis Gout of right knee Disposition Discharged Home Follow-Up Actions Follow-Up Needed Provider appointment Follow-Up Outcome Left Voicemail Initial Contact Date 04/20/24 CC Shey Alexander placed outbound call to patient for HDF outreach. CC placed second outreach call to offer patient with an HDF appointment with provider. No answer at this time. Patient's name and were not confirmed. CC left detailed message educating patient on importance of following up with provider following an inpatient admission. Provided contact information requesting a call back in orderto schedule the HDF appointment. Patient educated via voicemail on extended clinic hours on Mondaysand Wednesdays, and Walk-In Urgent Care Located in [facility]. Patient provided with after-hours line for [facility], , which offer night time triage service and option to transfer to neonatal nurse practitioner provider if needed. CC will await return call from the patient. documented in this encounter Plan of Treatment Not on file documented as of this encounter Visit Diagnoses Not on filedocumented in this encounter Additional Health Concerns Assessment Noted Time PHQ-9 Depression Total Score: 11 023 9:53 AM EST documented as of this encounter Care Teams Wagon Driver Relationship Specialty Start Date End Date Toro Silva MD [address] [place] [phone] PCP - General Internal Medicine 07/09/19 Grazyna Alvarado Water Fitness InstructorHelp Desk Consultant 08/06/23 documented as of this encounter
--- OUTSIDE RECORDS SUMMARY | 2024-04-24 09:16 | XMS_ITS | Encounter Summary ---
Author Organization [employer] Address [address] 7t [place] [address] Care Team Providers Care Decorative Greens Cutter Name Role Phone Toro Silva MD Primary Care Prov ider Encounter Details Date Type Department Care Team (Late st Contact Info) Description 04/21/2024 Telephone [facility] [address] [place] [address] Toro Silva MD [address] [place], [place] [phone] Social History Tobacco Use Types Packs/Day Years [...] documented as of this encounter Care Teams Decorative Greens Cutter Relationship Specialty Start Date End Date Toro Silva MD [address] [place] [phone] PCP - General Internal Medicine 07/09/19 Grazyna Alvarado Railroad Crane OperatorBulk Mail Clerk 08/06/23 documented as of this encounter
--- OUTSIDE RECORDS SUMMARY | 2024-04-24 09:16 | XMS_ITS | Encounter Summary ---
Author Organization [employer] Address [address] [place] [address] Care Team Providers Care Out Patient Therapist Name Role Phone Toro Silva MD Primary Care Prov ider Reason for Visit * Reason Comments Med Refill Encounter Details Date Type Department Care Team ([facility] st Contact Info) Description 09/29/2023 Refill [facility] MED & PEDS [address] [place], [place] [phone] Sophy Rubi MD [address] [place] [address] Neuropathy Social History Tobacco Use Types Packs/Day [...] documented as of this encounter Care Teams Out Patient Therapist Relationship Specialty Start Date End Date Toro Silva MD [address] [place] [phone] PCP - General Internal Medicine 07/09/19 Grazyna Alvarado Laborer Cement Gun PlacingAssociate Store Director 08/06/23 documented as of this encounter
--- OUTSIDE RECORDS SUMMARY | 2024-04-24 09:16 | XMS_ITS | Encounter Summary ---
Author Organization [employer] Address [address] [facility] 7t [place] [address] Care Team Providers Care Hospital Cleaning Specialist Name Role Phone Toro Silva MD Primary Care Prov ider Reason for Visit * Reason Comments Transition Of Care (Tcm) HDF- Unschedule d LVM Encounter Details Date Type Department Care Team ([facility] st Contact Info) Description 04/19/2024 Patient Outreach [facility] MED & PEDS [address] [place], [place] [phone] Toro Silva MD 505 [place] [address] Transition Of Care (Tcm) (HDF- Unscheduled LVM) Social History Tobacco Use Types Packs/Day Years [...] encounter Miscellaneous Notes * Significant Event - Marylu Hicks - 04/19/2024 8:32 AM EDT 04/19/24 0829 Hospital Discharges and Admission for [facility] Type of Visit Hospital Admission Date of Admission/Visit 04/16/24 Date of Discharge 04/18/24 Facility [facility] Diagnosis Gout of right knee Disposition Discharged Home Follow-Up Actions Follow-Up Needed Provider appointment Follow-Up Outcome Left Voicemail Initial Contact Date 04/19/24 WILMER Gill placed outbound call to patient for HDF outreach. CC placing call to offer patient with an HDF appointment with provider. No answer at this time. Patient's name and were not confirmed. CC left detailed message educating patient on importance of following up with provider following an inpatient admission. Provided contact information requesting a call back in order to schedule theHDF appointment. Patient educated via voicemail on extended clinic hours on Mondays and Wednesdays,and Walk-In Urgent Care Located in [facility]. Patient provided with after-hours line for [facility], , which offer night time triage service and option to transfer to cotton tier provider if needed. CC scanned discharge summary into patient's chart. CC will place additional outreach call within2-5 business days. documented in this encounter Plan of Treatment Not on file documented as of this encounter Visit Diagnoses Not on filedocumented in this encounter Additional Health Concerns Assessment Noted Time PHQ-9 Depression Total Score: 11 023 9:53 AM EST documented as of this encounter Care Teams Hospital Cleaning Specialist Relationship Specialty Start Date End Date Toro Silva MD [address] [place] [address] PCP - General Internal Medicine 07/09/19 Grazyna Alvarado Edge GrinderLabor Relations Representative 08/06/23 documented as of this encounter
--- OUTSIDE RECORDS SUMMARY | 2024-04-24 09:16 | XMS_ITS | Encounter Summary ---
Author Organization [employer] Address [address] [facility] [address] [place] [address] Care Team Providers Care Emr Analyst Name Role Phone Toro Silva MD Primary Care Prov ider Encounter Details Date Type Department Care Team (Late st Contact Info) Description 05/22/2023 Orders Only [facility] [address] [place], [place] [phone] ProviderHarley MD Social History Tobacco Use Types [...] documented as of this encounter Care Teams Emr Analyst Relationship Specialty Start Date End Date Toro Silva MD [address] [place] [phone] PCP - General Internal Medicine 07/09/19 Grazyna Alvarado Parks Recreation DirectorEap Consultant 08/06/23 documented as of this encounter
--- OUTSIDE RECORDS SUMMARY | 2024-04-24 09:16 | XMS_ITS | Encounter Summary ---
Author Organization [employer] Address [address] [facility] 7t [place] [address] Care Team Providers Care Geometry Professor Name Role Phone Toro Silva MD Primary Care Prov ider Encounter Details Date Type Department Care Team (Latest Contact Info) Description 04/21/2019 Abstract [facility] CONVERSIONS Dental, Provider, DDS Social History Tobacco [...] on filedocumented in this encounter Care Teams Geometry Professor Relationship Specialty Start Date End Date Toro Silva MD [address] [place] [address] PCP - General Internal Medicine 07/09/19 Grazyna Alvarado Developer ProgrammerBlogs Manager 08/06/23 documented as of this encounter
--- OUTSIDE RECORDS SUMMARY | 2024-04-24 09:16 | XMS_ITS | Encounter Summary ---
Author Organization [employer] Address [address] [facility] 7t [place] [address] Care Team Providers Care Refuse Collector Name Role Phone Toor Silva MD Primary Care Prov ider Encounter Details Date Type Department Care Team (Late st Contact Info) Description 04/21/2024 Population Health Risk Score [facility] (C3) Department [address] [facility] [address] [place] [phone] Provider, Population Health Generic Social History Tobacco Use Types Packs/Day Years [...] documented as of this encounter Care Teams Refuse Collector Relationship Specialty Start Date End Date Toro Silva MD [address] [place] [phone] PCP - General Internal Medicine 07/09/19 Grazyna Alvarado Yacht RiggerGas Operation Manager 08/06/23 documented as of this encounter
--- OUTSIDE RECORDS SUMMARY | 2024-04-24 09:16 | XMS_ITS | Encounter Summary ---
Author Organization [employer] Address [address] 7[address] [place] [address] Care Team Providers Care Marine Structural Welder Name Role Phone Toro Silva MD Primary Care Prov ider Reason for Visit * Reason Comments Med Refill Encounter Details Date Type Department Care Team ([facility] st Contact Info) Description 04/18/[address] [facility] CH[facility] MED & PEDS [address] [place], [place] [phone] Toro Silva MD [address] [place] [address] Neuropathy Social History Tobacco Use Types Packs/Day [...] documented as of this encounter Care Teams Marine Structural Welder Relationship Specialty Start Date End Date Toro Silva MD [address] [place] [phone] PCP - General Internal Medicine 07/09/19 Grazyna Alvarado Furnace FirerCommercial Lending Assistant 08/06/23 documented as of this encounter
--- OUTSIDE RECORDS SUMMARY | 2024-04-24 09:16 | XMS_ITS | Encounter Summary ---
Author Organization [employer] Address [address] [facility] [facility] [address] [place] [address] Care Team Providers Care Electrical Sign Wirer Helper Name Role Phone Toro Silva MD Primary Care Prov ider Reason for Visit * Reason Comments Med Refill Encounter Details Date Type Department Care Team ([facility] st Contact Info) Description 04/12/2024 Refill [facility] CH[facility] MED & PEDS [address] [place], [place] [phone] Toro Silva MD 505 [place] [address] Pulmonary embolism and infarction (CMS/HCC) Social History Tobacco Use Types Packs/Day [...] as of this encounter Visit Diagnoses Diagnosis 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
--- OUTSIDE RECORDS SUMMARY | 2024-04-24 09:16 | XMS_ITS | Clinical Summary ---
Demographics Address [address] [place] [address] [address] [place] [address] Home Phone Home Phone Preferred Language es Marital Status Unknown Oriental Orthodox Affiliation Unknown Race Unknown Ethnic Group Unknown Author Organization [facility], Address [address] [place] [address] [place] [address] Phone Care Team Providers Care Director Instructional Material Name Role Phone Toro Bravo Primary Care [...] 0 Active ergocalciferol (VITAMIN D-2) 1.25 MG (54794 UT) capsule TAKE 1 CAPSULE BY MOUTH [...] to complete this topic Insurance [address] [place] [address] [place] [address] [place] [address] * Guarantor: Davon Gonzalez Account Type Relation to Patient Date of Phone Billing Address Personal/Family Self 1965 [address] [place] [id number] Care Teams Director Instructional Material Relationship Specialty Start Date End Date Toro Bravo PCP - General Internal Medicine 09/06/19
--- OUTSIDE RECORDS SUMMARY | 2024-04-24 09:16 | XMS_ITS | Encounter Summary ---
Author Organization [employer] Address [address] [place] [address] Care Team Providers Care Community Health Nurse Name Role Phone Toro Silva MD Primary Care Prov ider Reason for Visit * Reason Comments Med Refill Encounter Details Date Type Department Care Team (Late st Contact Info) Description 07/11/2022 Refill [facility] [address] [place], [place] [phone] Toro Silva MD [address] [place], [place] [phone] Chronic pain syndrome Social History Tobacco Use [...] documented as of this encounter Care Teams Community Health Nurse Relationship Specialty Start Date End Date Toro Silva MD [address] [place] [address] PCP - General Internal Medicine 07/09/19 Grazyna Alvarado Conditioning CoachWeighing Station Operator 08/06/23 documented as of this encounter
--- OUTSIDE RECORDS SUMMARY | 2024-04-24 09:16 | XMS_ITS | Encounter Summary ---
Author Organization [employer] Address [address] [place] [address] Care Team Providers Care Foreman Or Supervisor And Operator Name Role Phone Toro Silva MD Primary Care Prov ider Reason for Visit * Reason Onset Date Comments Durable Medical Equipment 04/12/2024 Encounter Details Date Type Department Care Team ([facility] st Contact Info) Description 04/12/2024 Telephone [facility] [address] [place], [place] [phone] Toro Silva MD [address] [place] [address] Durable Medical Equipment Social History Tobacco Use [...] Telephone Encounter - Maci Mccray LPN - 04/13/2024 3:38 PM EST Marisel Perez MD , Can you please review Davon Gonzalez 's chart and advised on next steps to complete request for this patient. If agreed Please provide DX to support. [facility] [place] stating pt needs new crutches (current ones are worn out) * Telephone Encounter - Courtney Cortes - 04/12/2024 11:37 AM EST Tc from [facility] [place] stating pt needs new crutches (current ones are worn out) documented in this encounter Plan of Treatment Not on file documented as of this encounter Visit Diagnoses Not on filedocumented in this encounter Additional Health Concerns Assessment Noted Time PHQ-9 Depression Total Score: 11 023 9:53 AM EST documented as of this encounter Care Teams Foreman Or Supervisor And Operator Relationship Specialty Start Date End Date Toro Silva MD [address] [place] [address] PCP - General Internal Medicine 07/09/19 Grazyna Alvarado Tape Machine TailerCounterintelligence Agent 08/06/23 documented as of this encounter
--- OUTSIDE RECORDS SUMMARY | 2024-04-24 09:16 | XMS_ITS | Clinical Summary ---
Author Organization [employer] Address [address] [facility] [address] [place] [address] Care Team Providers Care Switch Inspector Name Role Phone Toro Silva MD [...] 3 024 2024 Active TRUEplus Lancets 33G [facility] TEST BLOOD SUGAR FOUR TIMES DAILY 100 each 11 024 Active Alcohol Swabs (Alcohol Prep) 70 % pads USE DIRECTED FOUR TIMES DAILY 100 each 11 024 Active topiramate 50 MG tabletIndications :Chronic [...] insulin ([facility]) TEST BLOOD SUGAR FOUR TIMES DAILY [...] EVERY MORNING 90 tablet 3 025 Active Ferrous Sulfate (iron) 325 (65 Fe) MG tabletIndications :Iron deficiency anemia secondary to inadequate dietary iron intake TAKE 1 TABLET BY MOUTH EVERY EVENING 90 tablet 025 Active Lantus SoloStar 100 UNIT/ML penIndications: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 ([facility]) INJECT 35 UNITS SUBCUTANEOUSLY TWICE DAILY 15 mL 2 025 Active Xarelto 2.5 MG tabletIndications :Pulmonary embolism and infarction (CMS/HCC) TAKE 1 TABLET BY MOUTH TWICE DAILY 60 tablet 3 025 Active gabapentin (Neurontin) 100 MG capsuleIndication s:Neuropathy TAKE 1 CAPSULE BY MOUTH THREE TIMES DAILY IN THE MORNING, EVENING, AND BEDTIME 90 capsule 025 Active Xarelto 2.5 MG tabletIndications :Pulmonary embolism and infarction (CMS/HCC) TAKE 1 TABLET BY MOUTH TWICE DAILY 60 tablet 3 024 2024 Discontinued insulin glargine (Lantus SoloStar) [...] (08/04/2022 2:39 PM EDT): Followed by cardiology Peterson filter in place 01/07/2018 Hemiparesis affecting left [...] Eye exam pending to be done at [facility] Assessment & Plan (04/07/2023 1:46 PM EST): On trulicity and lantus, new labs will be ordered for guidance of therapy Assessment & Plan (11/02/2022 12:11 PM EDT): FU w PCP Assessment & Plan (10/22/2022 12:42 [...] Encounters Date Type Department Care Team Description 04/21/2024 Telephone [facility] [address] [place] [address] Toro Silva MD 04/21/2024 Population Health Risk Score Community Care [facility] (C3) Department [address] [phone] Provider, Population Health Generic 04/20/2024 Telephone [facility] [address] [place] [address] Toro Silva MD Care Coordination ([facility]) 04/20/2024 Patient Outreach [facility] [address] [place] [address] Toro Silva MD Transition Of Care (Tcm) (HDF- LVM ) 04/20/2024 Telephone [facility] MED & PEDS [address] [place] [address] Toro Silva MD Hospital Follow-up 04/19/2024 Patient Outreach [facility] PEDS [address] [place] [address] Toro Silva MD Transition Of Care (Tcm) (HDF- Unscheduled LVM) 04/18/2024 Refill [facility] & PEDS [address] [place] [address] Toro Silva MD Neuropathy 04/16/2024 Orders Only GENERIC EXTERNAL DATA DEPARTMENT Provider, Generic External Data 04/12/2024 Telephone [facility] MED & PEDS [address] [place] [address] Toro Silva MD Durable Medical Equipment 04/12/2024 Refill [facility] PEDS [address] [place] [address] Toro Silva MD Pulmonary embolism and infarction ([facility]/HCC) 04/06/2024 Orders Only GENERIC EXTERNAL DATA DEPARTMENT Provider, Generic External Data 04/03/2024 Refill [facility] [address] [place] [address] Toro Silva MD CKD stage 3 due to type 2 diabetes mellitus ([facility]/HCC) 03/20/2024 Refill [facility] PEDS [address] [place] [address] Toro Silva MD Neuropathy; Iron deficiency anemia secondary to inadequate dietary iron intake 03/16/2024 Orders Only GENERIC EXTERNAL DATA DEPARTMENT Provider, Generic External Data 03/13/2024 Refill [facility] [address] [place] [address] Toro Silva MD Primary hypertension 03/07/2024 Telephone [facility] [address] [place] [address] Toro Silva MD Medication Question 02/22/2024 Refill [facility] [address] [place] [address] Toro Silva MD Primary hypertension 02/22/2024 Refill [facility] [address] [place] [address] Toro Silva MD Primary hypertension 02/21/2024 Refill [facility] [address] [facility] [place] [address] Toro Silva MD Neuropathy 02/10/2024 Refill [facility] [address], [place] [phone] Toro Silva MD Mixed hyperlipidemia from Last 3 Months Immunizations Name Administration [...] LACTIC ACID Routine 04/16/2024 8:05 PM EDT SED RATE BY MODIFIED WESTERGREN Routine 04/16/2024 7:54 PM EDT URIC ACID Routine 04/16/2024 7:54 PM EDT C-REACTIVE PROTEIN Routine 04/16/2024 7: 54 PM EDT MAGNESIUM Routine 04/16/2024 7:54 PM EDT COMPREHENSIVE METABOLIC PANEL Routine 04/16/2024 7:54 PM EDT CBC WITH AUTO DIFFERENTIAL Routine 04/16/2024 7:54 PM EDT XR KNEE 4+ VIEWS RIGHT Routine 7:10 PM EDT GLUCOSE, WHOLE BLOOD Routine 04/06/2024 1:24 PM EST HEMATOXYLIN AND EOSIN STAIN Routine 03/16/2024 10:05 AM EST GLUCOSE, WHOLE BLOOD Routine 03/16/2024 9:21 AM EST HEMOGLOBIN A1C Routine 12/15/2023 10:01 AM EST [...] Recently Relevant to Health Maintenance Results * CT Knee w/ Contrast Right (04/16/2024 10:55 PM EDT) Anatomical Region Laterality Modality Lower Extremities, Knee Right Computed Tomography 04/16/2024 10:5 5 PM EDT Narrative 04/16/2024 10:56 PM EDT ? [facility] ?[address] ?[place] [address] ? CT Scan Report ? Signed ? Patient: Davon Gonzalez ?MR#: [id number] ? : 1965 ?Acct:[id number] ? Age/Sex: 58 / M ?ADM Date: 04/16/24 ? Loc: HO.ED ? Attending Dr: ? Ordering Physician: Nubia Ordonez ?? Date of Service: 04/16/24 ?? Procedure(s): CT knee RT w IV con ?? Accession Number(s): [id number] ? cc: Toro Silva MD; Nubia Ordonez ? Report Number: ?? [id number]: Total DLP = ??200.00 mGy-cm ? CLINICAL [...] by Brandin Gatica MD in OV> ? 04/16/24 2256 ? DD/ 54 ? TD/TT: 04/16/242254 ? Marbleizing Machine Tender: ? Procedure Note Donmerlinter, Image - 04/17/[address] [place] [address] [address] Scan Report Signed Patient: Davon GonzalezMR#: [id number] : 1965Acct:[id number] Age/Sex: 58 / MADM Date: 04/16/24 Loc: HO.ED Attending Dr: Ordering Physician: Nubia Ordonez Date of Service: 04/16/24 Procedure(s): CT knee RT w IV con Accession Number(s): [id number] cc: Toro Silva MD; Nubia Ordonez Report Number: [id number]: Total DLP = 200.00 mGy-cm CLINICAL HISTORY: [...] in OV> 04/16/242255 DD/ 54 TD/TT: 04/16/242254 Marbleizing Machine Tender: us [facility] External Provider IMG CT PROCEDURES Edited Result - Final * Type and screen (04/16/2024 10:51 PM EDT) Blood Type AP [facility] Antibody Screen NEGATIVE [facility] 04/16/2024 10:5 1 PM EDT 04/16/2024 10:54 PM EDT Generic External Data Provider LAB BLOOD BANK TE ST ORDERABLES Final Result [facility] [address] [place] [phone] * Cell Count and Differential, Synovial Fluid (04/16/2024 10:41 PM EDT) Source Synovial Fluid right knee [facility] WBC Synovial Fluid 6.521 X10*3/u L [facility] Comment:Body Fluid WBC is a total nucleated cell count.When a differential is performed, the specimen isconcentrated by cytocentrifugation. This sometimes resultsin the number of cells in the differential being greaterthan the actual cell count performed on thenon-concentrated specimen. Synovial Fluid RBC 0.015 X10*6/u L [facility] Comment:The reference interv al(s) and other method performancespecifications are unavailable for this body fluid.Comparison of the result with concentration in the blood,serum, or plasma is recommended. Neutrophils Synovial Fluid 84 % [facility] Lymphocytes Synovial Fluid 3 % [facility] Monocytes Synovial Fluid 13 % [facility] 04/16/2024 10:4 1 PM EDT 04/16/2024 10:46 PM EDT Narrative [facility] - 04/16/2024 11:28 PM EDT [id number] knee Generic External Data Provider LAB BODY FLUIDS A ND STOOLS ORDERABLES Final Result Performing Organization Address City/[facility]/ZIP Co de Phone Number [facility] [address] [place] [phone] * Lactic Acid (04/16/2024 8:05 PM EDT) [facility] Lactic Acid 1.1 0.5 - 2.0 mmol/L [facility] 04/16/2024 8:05 PM EDT 04/16/2024 8:25 PM EDT Generic External Data Provider LAB BLOOD ORDERAB LES Final Result Performing Organization Address [facility]/ZIP Co de Phone Number [facility] [address] [place] [phone] * (ABNORMAL) CBC auto differential (04/16/2024 7:54 PM EDT) [facility] White Blood Count 13.1(H) 4.8 - 10.8 X10*3/uL [facility] Red Blood Count 4.34(L) 4.60 - 5.80 X10*6/uL [facility] Hemoglobin 12.6(L) 14.0 - 18.0 g/dl [facility] Hematocrit 37.4(L) 42.0 - 52.0 % [facility] Mean Corpuscular Volume 86.2 80.0 - 98.0 fL [facility] Mean Corpuscular Hemoglobin 29.0 27.0 - 33.0 pg [facility] Mean Corpuscular HGB Conc 33.7 31.0 - 36.0 g/dl [facility] Red Cell Distribution Width 13.4 11.0 - 16.0 % [facility] Platelet Count 266 160 - 400 X10*3/uL [facility] Mean Platelet Volume 10.4 9.4 - 12.4 fL [facility] Neutrophils Percent Auto 74.4(H) 45 - 73 % [facility] Imm Gran Pct Auto 0.4 0.0 - 0.4 % [facility] Lymphocytes Percent Auto 16.4(L) 20 - 40 % [facility] Monocytes Percent Auto 8.3 2 - 11 % [facility] Eosinophils Percent Auto 0.3 0 - 4 % [facility] Basophils Percent Auto 0.2 0 - 2 % [facility] NRBC Pct Auto 0.0 0.0 - 0.2 /100WBC [facility] Neutrophils Absolute Auto 9.7(H) 2.0 - 8.3 x10*3/uL [facility] Imm Gran Abs Auto 0.05(H) 0.00 - 0.03 X10*3/uL [facility] Lymphocytes Absolute Auto 2.2 1.2 - 4.9 X10*3/uL [facility] Monocytes Absolute Auto 1.1 0.1 - 1.2 X10*3/uL [facility] Eosinophils Absolute Auto 0.0 0.0 - 0.4 X10*3/uL [facility] Basophils Absolute Auto 0.0 0.0 - 0.2 X10*3/uL [facility] NRBC Abs Auto 0.000 0.0 - 0.012 X10*3/uL [facility] 04/16/2024 7:54 PM EDT 04/16/2024 7:56 PM EDT us Generic External Data Provider LAB BLOOD ORDERAB LES Final Result [facility] [address] [place] [address] [phone] * (ABNORMAL) Sed Rate by Modified Swati (04/16/2024 7:54 PM EDT) Erythrocyte Sedimentation Rate 75(H) 0 - 15 MM/HR [facility] Comment:Patients with polycy themia and many hemoglobin abnormalitiesmay have depressed sed rates whereas patients with anemiamay have elevated sed rates. 04/16/2024 7:54 PM EDT 04/16/2024 7:56 PM EDT Generic External Data Provider LAB BLOOD ORDERAB LES Final Result Performing Organization Address [facility] de Phone Number [facility] [address] [place] [phone] * (ABNORMAL) C-reactive Protein (04/16/2024 7:54 PM EDT) C Reactive Protein 9.65(H) < or = 0.50 mg/dL [facility] 04/16/2024 7:54 PM EDT 04/16/2024 7:56 PM EDT Generic External Data Provider LAB BLOOD ORDERAB LES Final Result Performing Organization Address [facility] Phone Number [facility] [address] [place] [phone] * (ABNORMAL) Uric acid (04/16/2024 7:54 PM EDT) Uric Acid 9.0(H) 3.4 - 7.0 mg/dL [facility] 04/16/2024 7:54 PM EDT 04/16/2024 7:56 PM EDT Generic External Data Provider LAB BLOOD ORDERAB LES Final Result Performing Organization Address [facility] de Phone Number [facility] [address] [place] [phone] * (ABNORMAL) Magnesium (04/16/2024 7:54 PM EDT) Magnesium 1.4(LL) 1.6 - 2.6 mg/dL [facility] Comment:Critical value for t est(s): MAGS Results called to mi back by: Elder ELIAS Person calling: [email or web address] Date: 04/16/24Time:2015 04/16/2024 7:54 PM EDT 04/16/2024 7:56 PM EDT us Generic External Data Provider LAB BLOOD ORDERAB LES Final Result [facility] [address] [place] [address] [phone] * (ABNORMAL) Comprehensive Metabolic Panel (04/16/2024 7:54 PM EDT) Sodium 141 135 - 145 mmol/L [facility] Potassium 4.0 3.3 - 5.1 mmol/L [facility] Chloride 105 96 - 108 mmol/L [facility] Carbon Dioxide 25 22 - 29 mmol/L [facility] Anion Gap 15 12 - 20 [facility] Urea Nitrogen (BUN) 27(H) 9 - 16 mg/dL [facility] Creatinine, Serum 1.67(H) 0.5 - 1.4 mg/dL [facility] Creatinine Clr Calc Pharmacy 50.6 [facility] Comment:eGFR (calculated fro m the MDRD study equation) and eCrCl(calculated from the Cockcroft-Gault equation) are based ondifferent parameters and may not yield comparable results.If eCrCl result is absurd, please check patient'sheight/weight. Estimated Glomerular Filt Rate 42 [facility] Comment:Chronic Kidney Disea se: Estimated GFR < 60 mL/min/1.95q7Rdnopy Kidney Disease: Estimated GFR < 15 mL/min/1.73m2 Glucose 139(H) 60 - 115 mg/dL [facility] Calcium 9.6 8.4 - 10.2 mg/dL [facility] Bilirubin, Total 0.6 0.0 - 1.0 mg/dL [facility] Aspartate Amino Transferase 18 5 - 37 U/L [facility] Alanine Aminotransferase 14 0 - 40 U/L [facility] Total Protein 8.5(H) 6.5 - 8.0 g/dL [facility] Albumin Level 4.2 3.5 - 5.0 g/dL [facility] Alkaline Phosphatase 86 39 - 117 U/L [facility] 04/16/2024 7:54 PM EDT 04/16/2024 7:56 PM EDT us Generic External Data Provider LAB BLOOD ORDERAB LES Final Result [facility] [address] [place] [address] [phone] * XR Knee 4+ Views Right (04/16/2024 7:10 PM EDT) Anatomical Region Laterality Modality Lower Extremities, Knee Right Radiogra phic Imaging 04/16/2024 7:10 PM EDT Narrative 04/16/2024 7:11 PM EDT ? [facility] ?[address] ?[place] [address] ?XRay Report ? Signed ? Patient: Davon Gonzalez ?MR#: [id number] ? : 1965 ?Acct:[id number] ? Age/Sex: 58 / M ?ADM Date: 04/16/24 ? Loc: HO.ED ? Attending Dr: ? Ordering Physician: Eduardo Kiser ?? Date of Service: 04/16/24 ?? Procedure(s): XR knee RT 4V ?? Accession Number(s): [id number] ? cc: Eduardo Kiser; Toro Silva MD ? CLINICAL HISTORY: Right knee pain ? 4 view right knee ? Comparison: X-rays of the right knee from 04/08/2020 ? Findings: ?? No significant change in right knee arthroplasty hardware or adjacent ?? palmar. Cvoxdjfl-qg-vkxks effusion present. No new fracture or lucency. ?? Old healed fracture of the proximal fibula diaphysis unchanged with bony ?? bridging and angulation. ?? Vascular calcifications are redemonstrated. ? IMPRESSION: ?? 1. No hardware loosening or significant change of the right knee ?? arthroplasty hardware compared to 04/08/2020. ? 2. Jnyqboln-vx-stnip effusion present. ? This document has been electronically signed by: Brandin Gatica MD on ?? 04/16/2024 19:10:06 ? Dictated By: ?Brandin Gatica MD ? Signed By: ?<Electronically signed by Brandin Gatica MD in OV> ? 04/16/241910 ? DD/ 09 ? TD/TT: 04/16/241909 ? Marbleizing Machine Tender: ? Procedure Note Donotuseinterpreter, Image - 04/16/[address] [address] XRay Report Signed Patient: Nilesh Gonzalez#: [id number] : 1965Acct:[id number] Age/Sex: 58 / MADM Date: 04/16/24 Loc: HO.ED Attending Dr: Ordering Physician: Eduardo Kiser Date of Service: 04/16/24 Procedure(s): XR knee RT 4V Accession Number(s): [id number] cc: Eduardo Kiser; Toro Silva MD CLINICAL HISTORY: Right knee pain 4 view right knee Comparison: X-rays of the right knee from 04/08/2020 Findings: No significant change in right knee arthroplasty hardware or adjacent palmar. Hkdrzzbf-pt-yjiwl effusion present. No new fracture or lucency. Old healed fracture of the proximal fibula diaphysis unchanged with bony bridging and angulation. Vascular calcifications are redemonstrated. IMPRESSION: 1. No hardware loosening or significant change of the right knee arthroplasty hardware compared to 04/08/2020. 2. Jwljqdur-li-vioyx effusion present. This document has been electronically signed by: Brandin Gatica MD on 04/16/2024 19:10:06 Dictated By: Brandin Gatica MD Signed By: <Electronically signed by Brandin Gatica MD in OV> 04/16/241910 DD/ 09 TD/TT: 04/16/241909 Marbleizing Machine Tender: [facility] External Provider IMG XR PROCEDURES Edited Result - Final * Glucose, Whole Blood (04/06/2024 1:24 PM EST) Glucose, Whole Blood 108 60 - 115 mg/dL [facility] Comment:METER #: [id number] Testing performed in the Endocrinology Department [address] , [address], [place]. 04/06/2024 1:24 PM EST 04/06/2024 1:29 PM EST us Generic External Data Provider LAB BLOOD ORDERAB LES Final Result Performing Organization Address City/State/[facility] Co de Phone Number [facility] [address] [place] [address] [phone] * Hematoxylin and Eosin Stain (03/16/2024 10:05 AM EST) 03/16/2024 10:0 5 AM EST 03/16/2024 10:21 AM EST Narrative [facility] - 03/17/2024 3:03 PM EST ----- ------- Name: Davon Gonzalez ? Age/Sex: 58/M ? : 1965 Unit#: [id number] ?? Attend Dr: Valente Drake MD ?Re03/16/24 ?Status: DEP SDC ? Location: HO.SSS ?Disch: ? ----- ------- SPEC : [id number] ?RECD: 03/16/24 ? STATUS: ??SOUT ? REQ NUM: [id number] ? ARLYN: 03/16/24 ? SUBM DR: Valente Drake MD ? [...] Copies To: ?? Toro Silva MD ?? [facility] ?? [address] ?? [place] [address] ?? [phone] ?? Valente Drake MD ?? [facility] ?? [address] ?? [place] [address] ?? [phone] ----- ------- Signed (signature on file) Sidney Ruiz MD 03/17/24 1503 ? ----- ------- ? END OF REPORT ? us Generic External Data Provider LAB BLOOD ORDERAB LES Final Result Performing Organization Address [facility] Co de Phone Number [facility] [address] [place] [phone] * (ABNORMAL) Glucose, Whole Blood (03/16/2024 9:21 AM EST) Glucose, Whole Blood 142(H) 60 - 115 mg/dL [facility] Comment:METER #: [id number] 03/16/2024 9:21 AM EST 03/16/2024 9:33 AM EST us Generic External Data Provider LAB BLOOD ORDERAB LES Final Result Performing Organization Address [facility]/ZIP Co de Phone Number [facility] [address] [place] [address] [phone] * (ABNORMAL) Hemoglobin A1c (12/15/2023 10:01 AM EST) Hemoglobin A1c 7.4(H) <6.0 % [facility] Comment:Hemoglobin A1C Refer ence Range Adults: 4.8 - 6.0 % Non diabetic: < 6.0 % Goal: < 7.0 %Additional Action Suggested: > 8.0 %Note: Hemoglobin A1c results are invalid for patients with abnormal amounts of HbF. Blood transfusions may impact the HbA1c concentration in the patient sample. Estimated Average Glucose 166 mg/dL [facility] Comment:eAG = Estimated ave rage glucose which is %A1C expressed asaverage glucose, using the formula of the V1B-NxmgrraDxtznrd Glucose study (ADAG), Diabetes Care, Vol.31,#8,Sep. 2007 12/15/2023 10:0 1 AM EST 12/15/2023 11:30 AM EST us Generic External Data Provider LAB BLOOD ORDERAB LES Final Result Performing Organization Address City/State/[facility] Co de Phone Number [facility] [address] [place] [phone] * (ABNORMAL) Lipid Panel, Standard (12/15/2023 10:01 AM EST) Triglycerides 141 <150 mg/dL [facility] Comment:Desirable Triglyceri de: less than 150 mg/dLBorderline High Triglyceride 150-199 mg/dLHigh Triglyceride: 200-499 mg/dLVery High Triglyceride: greater than or equal to 5OO mg/dL Cholesterol 106 <200 mg/dL [facility] Comment:Desirable Cholestero l: less than 200 mg/dLBorderline High Cholesterol: 200-239 mg/dLHigh Cholesterol: greater than 239 mg/dL LDL Cholesterol Calculated 45 <100 mg/dL [facility] Comment:Desirable LDL: less than 100 mg/dLNear Optimal/Above Optimal LDL: 110- 129 mg/dLBorderline High LDL: 130-159 mg/dLHigh LDL: 160-189 mg/dLVery High LDL: greater than or equal to 190 mg/dL HDL Cholesterol 33(L) >40 mg/dL [facility] Comment:Desirable HDL: great er than 40 mg/dL Note: This HDL assay may give artificially low results in patients with liver disease. Blood Venous blood specimen / Unknown 12/15/2023 10:01 AM EST 12/15/2023 11:32 AM EST Toro Perez MD LAB BLOOD ORDERABL ES Final Result [facility] [address] [place] [phone] * HIV-1 RNA, Quantitative, Real-Time PCR with Reflex to Genotype (RTI, PI, Integrase) (05/11/2022 9:42 AM EDT) HIV 1 RNA, QN PCR NOT DETECTED copies/mL [facility], HIV 1 RNA, QN PCR NOT DETECTED Log copies/mL [facility] [employer] [facility], Comment: REFERENCE RANGE: NOT DETECTED copies/mL ?NOT DETECTED ??Log copies/mL This test was performed using Real-Time Polymerase Chain Reaction. Reportable range is 20 to 10,000,000 copies/mL (1.30-7.00 Log copies/mL). 05/11/2022 9:42 AM EDT 05/11/2022 9:43 AM EDT Narrative [facility] - 05/14/2022 12:55 AM EDT FASTING:YES FASTING: YES us Toro Perez MD LAB BLOOD ORDERABL ES Final Result [facility] [address], [place] [address] [facility], [address] [place] [address] * Hepatitis C Antibody with Reflex to HCV, RNA, Quantitative, Real-Time PCR (05/11/2022 9:42 AM EDT) Hepatitis C Antibody NON-REACT TAMERA NON-REACT TAMERA [employer], Inct Index 0.08 <1.00 [employer], Inct Comment: HCV antibody was non-reactive. There is no laboratory evidence of HCV infection. In most cases, no further action is required. However, if recent HCV exposure is suspected, a test for HCV RNA (test code 55434) is suggested. For additional information please refer to http://education.[employer]/faq/IHH99s0 (This link is being provided for informational/ educational purposes only.) Blood Venous blood specimen / Unknown 05/11/2022 9:42 AM EDT 05/11/2022 9:43 AM EDT Narrative [facility] - 05/14/2022 12:55 AM EDT FASTING:YES FASTING: YES Toro Perez MD LAB BLOOD ORDERABL ES Final Result [facility] [address], [place] [address] [facility] [employer] [address] [place] [address] * Hm Colonoscopy (11/07/2020 6:57 AM EDT) Historical Provider HEALTH MAINTENANCE Final Result from Last 3 Months or Most Recently Relevant to Health Maintenance Insurance [facility] C3 Care Teams Switch Inspector Relationship Specialty Start Date End Date Toro Silva MD [address] [place] [phone] PCP - General Internal Medicine 07/09/19 Grazyna Alvarado Cinder Crane OperatorPatient Financial Counselor 08/06/23
--- OUTSIDE RECORDS SUMMARY | 2024-04-24 09:16 | XMS_ITS | Encounter Summary ---
Author Organization [employer] Address [address] [facility] 7t [place] [address] Care Team Providers Care Ruby On Rails Consultant Name Role Phone Toro Silva MD Primary Care Prov ider Reason for Visit * Reason Onset Date Comments Med Refill 04/13/2022 Encounter Details Date Type Department Care Team ([facility] st Contact Info) Description 04/13/2022 Refill [facility] CHC MED & PEDS [address] [place], [place] [phone] Toro Silva MD 505 [place] [address] Social History Tobacco Use Types Packs/Day Years [...] [employer]) 100 UNIT/ML pen Please sent to [facility] - [place], [place] - [address] documented in this encounter Plan of Treatment Not on file documented as of this encounter Visit Diagnoses Not on filedocumented in this encounter Care Teams Ruby On Rails Consultant Relationship Specialty Start Date End Date Toro Silva MD [address] [place] [address] PCP - General Internal Medicine 07/09/19 Grazyna Alvarado Production Support ManagerLink Cutter 08/06/23 documented as of this encounter
== END 2024-04-24 09:28 | disposition home or self-care (01) ==
LOC: HO.ENCR 08:52
PROVIDERS: PCP Internal Medicine; Visit Provider Registered Nurse Diabetes Educator
DX: E11.65 Type 2 diabetes mellitus with hyperglycemia (principal); Z79.4 Long term (current) use of insulin

== ENCOUNTER → 2024-04-24 08:51 | Outpatient (BNVA) | payer MEDICAID, SELFPAY | PROVIDERS: PCP Internal Medicine; Visit Provider Registered Nurse Diabetes Educator | DX: E11.65 Type 2 diabetes mellitus with hyperglycemia (principal); Z79.4 Long term (current) use of insulin | CPT/HCPCS: 99211 ==

== ENCOUNTER 2024-05-09 09:01 | Outpatient (AMB) | payer MEDICAID, SELFPAY ==
--- NOTE | 2024-05-09 09:35 | A.OFFVIS_ITS ---
Intake Intake Visit Reasons: 60 min Auto Accessories Installer Required: Yes Auto Accessories Installer Language: Foreclosure Field Inspector Name: Milana [id number] Accompanied by: Self / Same As Patient Allergies shellfish derived Allergy (Severe, Verified 04/16/24 16:11) SWOLLEN THROAT apple [Apple] Allergy (Intermediate, Verified 04/16/24 16:11) SWELLING egg [Egg] Allergy (Intermediate, Verified 04/16/24 16:11) HIVES influenza virus vaccine, specific [Influenza Virus Vacc,Specific] Allergy (Intermediate, Verified 04/16/24 16:11) SWELLING lisinopril [Lisinopril] Allergy (Intermediate, Verified 04/17/24 08:17) Itching Penicillins Allergy (Mild, Verified 04/16/24 16:11) RASH nifedipine [From Procardia] Allergy (Unknown, Verified 04/16/24 16:11) UNKNOWN HPI Comprehensive Diabetes Asmnt Most Recent Diabetes Results: Hemoglobin A1c 13.9 % 02/20/19 Microalb/Creat Ratio TNP ug/mg cr 02/20/19 Cholesterol 106 mg/dL (<200) 12/15/23 HDL Cholesterol 33 mg/dL (>40) L 12/15/23 Triglycerides 141 mg/dL (<150) 12/15/23 Creatinine 1.46 mg/dL (0.5-1.4) H 04/17/24 Blood Urea Nitrogen 25 mg/dL (9-16) H 04/17/24 Sodium 138 mmol/L (135-145) 04/17/24 Potassium 4.1 mmol/L (3.3-5.1) 04/17/24 Chloride 109 mmol/L (96-108) H 04/17/24 Carbon Dioxide 20 mmol/L (22-29) L 04/17/24 Calcium 8.5 mg/dL (8.4-10.2) 04/17/24 AST 38 U/L (5-37) H 04/17/24 ALT 28 U/L (0-40) 04/17/24 Total Protein 7.1 g/dL (6.5-8.0) 04/17/24 Albumin 3.6 g/dL (3.5-5.0) 04/17/24 [facility] Medical History (Updated 04/26/24 @ 00:02 by Background Rashida) Uncontrolled hypertension Benign skin lesion of cheek Pulmonary embolism Gastritis SUSY (acute kidney injury) Enteritis Epigastric pain Physical deconditioning SOB (shortness of breath) Colon cancer screening Dysphagia Uninodular goiter (nontoxic) Right knee pain Chronic pain Type 2 diabetes mellitus with polyneuropathy Upper abdominal pain H. pylori infection Obesity due to excess calories Blind right eye Goiter Cancer of eye Chronic kidney disease, stage 3 Hemiparesis affecting left side as late effect of cerebrovascular accident CHF (congestive heart failure) History of poliomyelitis GERD (gastroesophageal reflux disease) Morbid obesity Mood disorder Nasal polyps Angina of effort ARTEM (obstructive sleep apnea) Hemiplegia affecting dominant side Asthma Other pulmonary embolism and infarction Left ventricular hypertrophy Syncope Type 2 diabetes mellitus with hyperglycemia, with long-term current use of insulin Hyperlipidemia LDL goal <70 Essential hypertension Surgical History History of excision of lesion (~09/09/23) History of carpal tunnel surgery History of right knee joint replacement History of esophagogastroduodenoscopy (EGD) History of cardiac catheterization Hx of knee surgery History of coronary artery stent placement Family History Father Stroke Brain cancer CVD (cardiovascular disease) Diabetes Mother Diabetes Social History Household Members: Other Household Members Other:: HEALTH PROFESSIONAL Housing: Apartment Are you a primary client care specialist to a significant other at home: No Do you presently have visiting nurse or other home services: Yes (HEALTH PROFESSIONAL) Alcohol intake: never Patient Tobacco Use Status: Never used Tobacco Advance Directives Date on File: 11/08/20 service: No Assessment & Plan Assessment & Plan (1) Type 2 diabetes mellitus with hyperglycemia, with long-term current use of insulin: Code(s): E11.65 - Type 2 diabetes mellitus with hyperglycemia; Z79.4 - retirement (current) use of insulin Plan: Diabetes self-management education and support participation record Assessment/scale: 1= needs instructed? 2= needs review? 3= comprehend keep point? 4= demonstrates understanding/ competent? NC= Not Covered Topics Learning Objective: Initial visit Initial or post srvc Initial or post srvc Initial or post srvc Initial or post srvc Initial or post srvc Post srvc Comments Pre Edu-assessment/plan Outcome or reassess Outcome or reassess Outcome or reassess Outcome or reassess Outcome or reassess Outcome or reassess Diabetes pathophysiology 1 Healthy eating 1 Being active 1 Taking medication 1 Monitoring glucose 2 Acute complication 1 Chronic complicated 1 Lifestyle and healthy coping 1 Diabetes distress in support 1 ?Diabetes pathophysiology: ?Defined diabetes med identify own type of diabetes; list 3 options for treating diabetes Healthy eating: ?Described effect of type, amount and ?timing of food on blood glucose; list 3 methods for planning meal Being active: ?State effect of exercise on blood glucose level Taking medication: ?State effect of diabetes medications on diabetes; name diabetes medications taking, action and side effects Monitoring glucose: ?Identify recommended blood glucose targets and personal target Acute complication: ?List symptoms and treatment of hyper and hypoglycemia, DKA, sick day guidelines and guidelines for severe weather or situations of crisis and diabetes supply manage Chronic complication: ?To find the relationship of blood glucose levels to long- term complications of diabetes in screening and preventative measures Lifestyle and healthy coping: ?Described lifestyle and healthy coping strategies to rule out diabetes self-management Diabetes to stress and support: ?Recognize Diabetes to stress and be able to identified support options Learning objectives: The patient was provided with verbal and written education on the following topics as outlined below. The patient met all learning objectives and was able to verbalize understanding and provide teach back of education topics discussed . The patient was provided with the opportunity to ask questions and all questions were answered. Patient Assessment Assess patient education level/literacy/barriers, patient walks with crutches, has braces on both wrists which limit physical mobility. Patient questions/concerns patient had questions regarding placement of Trell 3 sensor, reviewed recommended placement. Patient's last A1c 6.9% in March 2024 Patient is currently on Jardiance 25 mg daily Lantus 35 units daily Trulicity 3 mg weekly What is Diabetes? Pathophysiology How the body produces and uses insulin Identify type of DM Risk factors Signs of Diabetes Brief overview of Diabetes Management Monitoring blood sugar Following a meal plan Regular exercise Maintaining a healthy weight Taking medication as needed Members of the care team (PCP, RN, MA, RD, CDE, machine welder) Blood glucose monitoring When/how often to test Target blood sugar ranges Personal Continuous Glucose Monitor: Patients CGM information reviewed, Pt uses Trell 3+ with Beaver Sensor data: Hypoglycemia: ? 0% Hyperglycemia:? 16% Time in Range:?84% Average glucose for the last 2 weeks 145? mg/dL Patient's glucose is well controlled, patient did have evidence of 1 episode of hypoglycemia in the past 14 days Reviewed with patient how to treat hypoglycemia with rule of 15s ? Patient able to insert sensor independently in office today without issue.? Introduction to Nutrition Importance of healthy diet in managing DM Diet is personalized to individual preference Review patient?s regular diet/food preferences Who prepares meals/does food shopping/ Dining out?/ Barriers? How diet effects glucose Eating 3 balanced meals a day with small, healthy snacks between meals Review food groups Carbohydrates: What is a carbohydrate/Which food/food groups are considered carbohydrates Effect of carbohydrates on blood glucose Portion sizes Reading food labels Basic carb counting (if applicable per nursing assessment) Plate method Meal planning Recommendations: Follow plate method, consistent carbs and read nutritional labels. Smart Goal: Patient will identify food in current meal plan that contain carbohydrates before next visit Educational Materials: The patient was provided with the following written educational materials: Planning Healthy Meals, how to treat hypoglycemia Handouts given in marshallese Patient Response to instructions: Comprehension of Instructions: Fair Readiness to make changes: Contemplation How confident they feel about making changes: Fair Portions of this note were created using voice recognition software, please excuse any words or phrases that may have been misinterpreted. Patient Instructions: Incluir actividad diaria regular. ADA recomienda 30 minutos de ejercicio 5 d?as a la semana. P?rdida de peso, hable con el PCP o el cardi?logo antes de comenzar un nuevo plan. Mida el nivel de az?car en la melissa seg?n las indicaciones; Ayuno y comida m?s anna de 2hpp. Observe las tendencias en los resultados. Utilice los resultados y eval?e c?mo los alimentos, la actividad f?mikey y los medicamentos afectan los resultados de az?car en la melissa. Lleve el gluc?metro o CGM a la pr?xima visita. Conocer los medicamentos para la diabetes, delgado acci?n, los efectos secundarios, la eficacia, la toxicidad, la dosis prescrita, el momento y la frecuencia de administraci?n apropiados, el efecto de las dosis olvidadas y retrasadas y las instrucciones de almacenamiento, viaje y seguridad. T?cnicas de resoluci?n de problemas para el seguimiento de episodios de hipo/hiperglucemia y tratamientos. Reducir los comportamientos de reducci?n de riesgos, dejar de fumar, ex?menes regulares de ojos, pies y dentales. Coding Level of Care Code Est Pt Level 1 (79767) Diagnoses Type 2 diabetes mellitus with hyperglycemia, with long-term current use of insulin E11.65; Z79.4
--- OUTSIDE RECORDS SUMMARY | 2024-05-09 09:45 | XMS_ITS | Encounter Summary ---
Author Organization [employer] Address [address] [address] [place] [address] Care Team Providers Care Jazz Singer Name Role Phone Toro Silva MD Primary Care Prov ider Encounter Details Date Type Department Care Team (Latest Contact Info) Description 05/09/2024 Travel Social History Tobacco Use Types Packs/Day Years [...] as of this encounter Plan of Treatment Upcoming Encounters Date Type Department Care Team (Late st Contact Info) Description 05/09/2024 11:30 AM EDT Telemedicine [facility] CHC MED & PEDS [address] [place] [address] Toro Silva MD [address] [place] [address] Arrived 07/04/2024 10:30 AM EDT Telemedicine [facility] MED & PEDS [address] [place] [address] Toro Silva MD [address] [place] [address] documented as of this encounter Visit Diagnoses Not on filedocumented in this encounter Additional Health Concerns Assessment Noted Time PHQ-9 Depression Total Score: 11 023 9:53 AM EST documented as of this encounter Care Teams Jazz Singer Relationship Specialty Start Date End Date Toro Silva MD [address] [place] [address] PCP - General Internal Medicine 07/09/19 Grazyna Alvarado Pipe ConnectorEmployment Representative 08/06/23 documented as of this encounter
--- OUTSIDE RECORDS SUMMARY | 2024-05-09 09:45 | XMS_ITS | Encounter Summary ---
Author Organization [employer] Address [address] 7[address] [place] [address] Care Team Providers Care Obstetrics Scrub Nurse Name Role Phone Toro Silva MD Primary Care Prov ider Encounter Details Date Type Department Care Team ([facility] st Contact Info) Description 05/08/2024 Telephone [facility] CHC MED & PEDS [address] [place], [place] [phone] Toro Silva MD [address] [place] [address] Social History Tobacco Use Types Packs/Day Years [...] Info) Description 05/09/2024 11:30 AM EDT Telemedicine [facility] MED & PEDS [address] [place] [address] Toro Silva MD [address] [place] [address] Arrived 07/04/2024 10:30 AM EDT Telemedicine [facility] MED & PEDS [address] [place] [address] Toro Silva MD [address] [place] [address] documented as of this encounter Visit Diagnoses Not on filedocumented in this encounter Additional Health Concerns Assessment Noted Time PHQ-9 Depression Total Score: 11 023 9:53 AM EST documented as of this encounter Care Teams Obstetrics Scrub Nurse Relationship Specialty Start Date End Date Toro Silva MD [address] [place] [address] PCP - General Internal Medicine 07/09/19 Grazyna Alvarado Tire RepairerGuest Services 08/06/23 documented as of this encounter
--- OUTSIDE RECORDS SUMMARY | 2024-05-09 09:45 | XMS_ITS | Encounter Summary ---
Author Organization [employer] Address [address] [facility] 7t [place] [address] Care Team Providers Care Steward/Stewardess Smoke Room Name Role Phone Toro Silva MD Primary Care Prov ider Reason for Visit * Reason Comments Med Refill Encounter Details Date Type Department Care Team (Late Contact Info) Description 03/03/2022 Refill [facility] CHC MED & PEDS [address] [place] [address] Toro Silva MD [address] [place] [address] Chronic pain syndrome Social History Tobacco Use [...] Upcoming Encounters Date Type Department Care Team ([facility] Contact Info) Description 05/09/2024 11:30 AM EDT Telemedicine [facility] CHC MED & PEDS [address] [place] [address] Toro Silva MD [address] [place] [address] Arrived 07/04/2024 10:30 AM EDT Telemedicine [facility] CHC MED & PEDS [address] [place] [address] Toro Silva MD [address] [place] [address] documented as of this encounter Visit Diagnoses Diagnosis Chronic pain syndrome documented in this encounter Care Teams Steward/Stewardess Smoke Room Relationship Specialty Start Date End Date Toro Silva MD [address] [place] [address] PCP - General Internal Medicine 07/09/19 Grazyna Alvarado Network Security ArchitectCare Asst 08/06/23 documented as of this encounter
--- OUTSIDE RECORDS SUMMARY | 2024-05-09 09:45 | XMS_ITS | Encounter Summary ---
Author Organization [employer] Address [address] [facility] [address] [place] [address] Care Team Providers Care Lining Marker Name Role Phone Toro Silva MD Primary Care Prov ider Reason for Visit * Reason Comments Med Refill Encounter Details Date Type Department Care Team (Late st Contact Info) Description 02/22/2024 Refill [facility] MEDICINE [address] [place] [address] Toro Silva MD [address] [place], [place] [phone] Primary hypertension Social History Tobacco Use Types [...] Info) Description 05/09/2024 11:30 AM EDT Telemedicine [facility] MED & PEDS [address] [place] [address] Toro Silva MD [address] [place] [address] Arrived 07/04/2024 10:30 AM EDT Telemedicine [facility] MED & PEDS [address] [place] [address] Toro Silva MD [address] [place] [address] documented as of this encounter Visit Diagnoses Diagnosis Primary hypertension Unspecified essential hypertension documented in this encounter Additional Health Concerns Assessment Noted Time PHQ-9 Depression Total Score: 11 023 9:53 AM EST documented as of this encounter Care Teams Lining Marker Relationship Specialty Start Date End Date Toro Silva MD [address] [place] [address] PCP - General Internal Medicine 07/09/19 Grazyna Alvarado Hair Clipper PowerDesktop Publishing Operator 08/06/23 documented as of this encounter
--- OUTSIDE RECORDS SUMMARY | 2024-05-09 09:45 | XMS_ITS | Encounter Summary ---
Author Organization [employer] Address [address] [facility] 7t [place] [address] Care Team Providers Care Hydro Mechanic Name Role Phone Toro Silva MD Primary Care Prov ider Reason for Visit * Reason Onset Date Comments c/b request 2022 Encounter Details Date Type Department Care Team ([facility] st Contact Info) Description 2022 Telephone [facility] CHC MED & PEDS [address] [place], [place] [phone] Toro Silva MD [address] [place] [address] c/b request Social History Tobacco Use Types [...] for a call back. TC placed to [facility] Gastro no answer left a message for Joan on voice mail gave [facility] direct number for a call back TC placed to pt for a third time and another message was left for him to contact the [place] nurses. Several messages also left at Gastro office with no call back will send to PCP as FYI. * Telephone Encounter - Carolyn Cha RN - 10/19/2022 11:24 AM EDT Tc from [place] with [facility] requesting a call in regards to pt upcoming colonoscopy appointment on 10/21 Please contact joan at [phone] TC returned to [place] and a message was left for a [...] for a call back. TC placed to [facility] Gastro no answer left a message for Joan on voice mail gave [facility] direct number for a call back * Telephone Encounter - Gianna Antonio - 2022 10:37 AM EDT Tc from [place] with [facility] requesting a call in regards to pt upcoming colonoscopy appointment on 10/21 Please contact joan at [phone] documented in this encounter Plan of Treatment Upcoming Encounters Date Type Department Care Team (Late st Contact Info) Description 05/09/2024 11:30 AM EDT [facility]medicine [facility] MED [facility]EDS [address] [place], [place] [phone] Toro Silva MD [address] [place] [address] Arrived 07/04/2024 10:30 AM EDT Telemedicine [facility] CHC MED & PEDS [address] [place] [address] Toro Silva MD [address] [place] [address] documented as of this encounter Visit Diagnoses Not on filedocumented in this encounter Additional Health Concerns Assessment Noted Time PHQ-9 Depression Total Score: 0 07/02/19 23 9:45 AM EDT documented as of this encounter Care Teams Hydro Mechanic Relationship Specialty Start Date End Date Toro Silva MD [address] [place] [address] PCP - General Internal Medicine 07/09/19 Grazyna Alvarado Stone SandblasterWell Servicing Rig Operator 08/06/23 documented as of this encounter
--- OUTSIDE RECORDS SUMMARY | 2024-05-09 09:45 | XMS_ITS | Encounter Summary ---
Author Organization [employer] Address [address] [facility] 7t [place] [address] Care Team Providers Care Dehydrator Name Role Phone Toro Silva MD Primary Care Prov ider Encounter Details Date Type Department Care Team (Late Contact Info) Description 03/05/2022 Orders Only [facility] MEDICINE [address] [place], [place] [phone] Toro Silva MD [address] [place] [address] Disorder of vision (Primary Dx) Social History [...] Encounters Date Type Department Care Team (Late Contact Info) Description 05/09/2024 11:30 AM EDT Telemedicine [facility] CHC MED & PEDS [address] [place] [address] Toro Silva MD [address] [place] [address] Arrived 07/04/2024 10:30 AM EDT Telemedicine [facility] CHC MED & PEDS [address] [place] [address] Toro Silva MD [address] [place] [address] documented as of this encounter Procedures Procedure Name Priority Date/Time Associated Diagnosis Comments HEMATOXYLIN AND EOSIN STAIN Routine 10/21/2022 1:32 PM EDT Disorder of vision GLUCOSE, WHOLE BLOOD Routine 10/21/2022 11:49 AM EDT Disorder of vision documented in this encounter Results * Hematoxylin and Eosin Stain (10/21/2022 1:32 PM EDT) 10/21/2022 1:32 PM EDT 10/21/2022 3:10 PM EDT [facility] - 10/22/2022 2:46 PM EDT ----- ------- Name: Davon Gonzalez ? Age/Sex: 57/M ? : 1965 Unit#: [id number] ?? Attend Dr: Valente Drake MD ?Re10/21/22 ?Status: DEP SDC ? Location: HO.SSS ?Disch: ? ----- ------- SPEC : [id number] ? RECD: 10/21/22 ? STATUS: ??SOUT ? REQ NUM: [id number] ? ARLYN: 10/21/22 ? SUBM DR: Valente Drake MD ? ENTERED: ??10/21/22 ?SP TYPE: Surgical ? OTHR DR: Toro [...] Silva MD ?? [address] ?? [place] [address] ?? [phone] ? CONTINUED ON NEXT PAGE ----- ------- Name: Davon Gonzalez ? Age/Sex: 57/M ? : 1965 Unit#: [id number] ?? Attend Dr: Valente Drake MD ?Re10/21/22 ?Status: DEP SDC ? Location: HO.SSS ?Disch: ? ----- ------- SPEC : [id number] ? RECD: 10/21/22-1509 ? STATUS: ??SOUT ? REQ NUM: [id number] ? ARLYN: 10/21/22-1332 ? SUBM DR: Valente Drake MD ? ENTERED: ??10/21/22-1510 ?SP TYPE: Surgical ? OTHR DR: Toro Silva MD ORDERED: ??HE Stain/6, Gross Micro L4/2 ? Copies To: ??(Continued) ?? Valente Drake MD ?? [address] [facility] [address] ?? [place] [address] ?? [phone] ----- ------- Signed (signature on file) Jennifer Frederick 10/22/22 9346 ? ----- ------- ? END OF REPORT ? [facility] External Provider LAB BLO OD ORDERABLES Final Result Performing Organization Address [facility] Co de Phone Number [facility] [address] [place] [address] [phone] * (ABNORMAL) Glucose, Whole Blood (10/21/2022 11:49 AM EDT) Glucose, Whole Blood 143(H) 60 - 115 mg/dL [facility] Comment:METER #: [id number] 10/21/2022 11:4 9 AM EDT 10/21/2022 11:52 AM EDT [facility] External Provider LAB BLO OD ORDERABLES Final Result Performing Organization Address [facility] de Phone Number [facility] [address] [place] [phone] documented in this encounter Visit Diagnoses Diagnosis Disorder of vision- Primary documented in this encounter Care Teams Dehydrator Relationship Specialty Start Date End Date Toro Silva MD [address] [place] [address] PCP - General Internal Medicine 07/09/19 Grazyna Alvarado Translator DeafMounter Sousaphones 08/06/23 documented as of this encounter
--- OUTSIDE RECORDS SUMMARY | 2024-05-09 09:45 | XMS_ITS | Encounter Summary ---
Author Organization [employer] Address [address] [facility] 7t [place] [address] Care Team Providers Care Building Insulation Installer Name Role Phone Toro Silva MD Primary Care Prov ider Reason for Visit * Reason Comments Med Refill Encounter Details Date Type Department Care Team (Late Contact Info) Description 10/16/2022 Refill [facility] MEDICINE [address] [place] [address] Toro Silva MD [address] [place] [address] Chronic pain syndrome Social History Tobacco Use [...] Info) Description 05/09/2024 11:30 AM EDT Telemedicine [facility] CHC MED & PEDS [address] [place] [address] Toro Silva MD [address] [place], [place] [phone] Arrived 07/04/2024 10:30 AM EDT Telemedicine [facility] CHC MED & PEDS [address] [place] [address] Toro Silva MD [address] [place] [address] documented as of this encounter Visit Diagnoses Diagnosis Chronic pain syndrome documented in this encounter Additional Health Concerns Assessment Noted Time PHQ-9 Depression Total Score: 0 07/02/19 23 9:45 AM EDT documented as of this encounter Care Teams Building Insulation Installer Relationship Specialty Start Date End Date Toro Silva MD [address] [place] [address] PCP - General Internal Medicine 07/09/19 Grazyna Alvarado Legal Financial SpecialistAccounting Coordinator 08/06/23 documented as of this encounter
--- OUTSIDE RECORDS SUMMARY | 2024-05-09 09:45 | XMS_ITS | Encounter Summary ---
Author Organization [employer] Address [address] [facility] [address] 7t [place] [address] Care Team Providers Care Model Technician Name Role Phone Toro Sliva MD Primary Care Prov ider Reason for Visit * Reason Onset Date Comments PT-1 01/17/2024 Encounter Details Date Type Department Care Team ([facility] st Contact Info) Description 01/17/2024 Telephone [facility] MEDICINE [address] [place] [address] Toro Silva MD 505 [place] [address] PT-1 Social History Tobacco Use Types Packs/Day [...] Info) Description 05/09/2024 11:30 AM EDT Telemedicine [facility] MED & PEDS 505 [place] [address] Toro Silva MD 505 [place] [address] Arrived 07/04/2024 10:30 AM EDT Telemedicine [facility] MED & PEDS [address] [place] [address] Toro Silva MD 505 [place] [address] documented as of this encounter Visit Diagnoses Not on filedocumented in this encounter Additional Health Concerns Assessment Noted Time PHQ-9 Depression Total Score: 11 023 9:53 AM EST documented as of this encounter Care Teams Model Technician Relationship Specialty Start Date End Date Toro Silva MD 505 [place] [address] PCP - General Internal Medicine 07/09/19 Grazyna Alvarado Fish And Game WardenGeneral Production Manager 08/06/23 documented as of this encounter
--- OUTSIDE RECORDS SUMMARY | 2024-05-09 09:45 | XMS_ITS | Encounter Summary ---
Author Organization [employer] Address [address] 7[address] [place] [address] Care Team Providers Care Paper Cutting Machine Operator Name Role Phone Toro Silva MD Primary Care Prov ider Reason for Visit * Reason Onset Date Comments Medication Question 03/07/2024 Encounter Details Date Type Department Care Team ([facility] Contact Info) Description 03/07/2024 Telephone [facility] MED & PEDS [address] [place], [place] [phone] Toro Silva MD 505 [place] [address] Medication Question Social History Tobacco Use Types [...] TC from erum regarding below message . Nuclear Operations Specialist sent a secure chat to provider . Per Provider hold 2 days prior procedure, restart 1 day after * Telephone Encounter - Courtney Cortes - 03/07/2024 2:17 PM EST Tc from Erum at [facility] stating pt is scheduled for colonoscopy on 03/16/24 and Erum would like a call back to advise on holding off on medication Xarelto 2.5 MG tablet Contact Erum [phone] opt 5 documented in this encounter Plan of Treatment Upcoming Encounters Date Type Department Care Team (Late st Contact Info) Description 05/09/2024 11:30 AM EDT Telemedicine [facility] MED & PEDS [address] [place] [address] Toro Silva MD [address] [place] [address] Arrived 07/04/2024 10:30 AM EDT Telemedicine [facility] MED & PEDS [address] [place] [address] Toro Silva MD [address] [place] [address] documented as of this encounter Visit Diagnoses Not on filedocumented in this encounter Additional Health Concerns Assessment Noted Time PHQ-9 Depression Total Score: 11 023 9:53 AM EST documented as of this encounter Care Teams Paper Cutting Machine Operator Relationship Specialty Start Date End Date Toro Silva MD [address] [place] [address] PCP - General Internal Medicine 07/09/19 Grazyna Alvarado Control Officer ManagerDoctor Of Osteopathy 08/06/23 documented as of this encounter
--- OUTSIDE RECORDS SUMMARY | 2024-05-09 09:45 | XMS_ITS | Encounter Summary ---
Author Organization [employer] Address [address] 7[address] [place] [address] Care Team Providers Care Swedger Name Role Phone Toro Silva MD Primary Care Prov ider Reason for Visit * Reason Onset Date Comments Durable Medical Equipment 12/20/2023 Encounter Details Date Type Department Care Team ([facility] st Contact Info) Description 12/20/2023 Telephone [facility]ICINE [address] [place] [address] Toro Silva MD [address] [place] [address] Durable Medical Equipment Social History Tobacco Use [...] Info) Description 05/09/2024 11:30 AM EDT Telemedicine [facility] MED & PEDS [address] [place] [address] Toro Silva MD [address] [place] [address] Arrived 07/04/2024 10:30 AM EDT Telemedicine [facility] MED & PEDS [address] [place] [address] Toro Silva MD [address] [place] [address] documented as of this encounter Visit Diagnoses Not on filedocumented in this encounter Additional Health Concerns Assessment Noted Time PHQ-9 Depression Total Score: 11 023 9:53 AM EST documented as of this encounter Care Teams Swedger Relationship Specialty Start Date End Date Toro Silva MD 505 [place] [address] PCP - General Internal Medicine 07/09/19 Grazyna Alvarado Manager CodeDoll Maker 08/06/23 documented as of this encounter
--- OUTSIDE RECORDS SUMMARY | 2024-05-09 09:45 | XMS_ITS | Encounter Summary ---
Author Organization [employer] Address [address] 7[address] [place] [address] Care Team Providers Care Cleaner Touch Up Worker Name Role Phone Toro Silva MD Primary Care Prov ider Reason for Visit * Reason Onset Date Comments Nurse Triage 05/05/2024 Encounter Details Date Type Department Care Team ([facility] st Contact Info) Description 05/05/[address] [facility] MEDICINE [address] [place], [place] [phone] Toro Silva MD [address] [place] [address] Nurse Triage Social History Tobacco Use Types Packs/Day Years [...] encounter Miscellaneous Notes * Telephone Encounter - Gemma Rosenberg, TOMI - 05/05/2024 3:49 PM EDT Triage call returned with BLS # [id number] Fatou. TC made to DMITRI Perkins who was in the home earlier this afternoon with patient who is in extreme pain. Patient seen in ED and then seen in [facility] on 05/03/24. Patient BP 172/102. No numbness or weakness of face or extremities. Patient reports elevation of BP and HR to pain. Patient discharged from ED on 04/16/24 with 8 tablets of colchicine which he completed. Patient is compliant with taking meloxicamand BP meds previously ordered. MANAGER PARK Ema Colon in home and took over call. BP now at time of call is 163/87. Ema provided instructions to take BP two times daily and record. Advised if diastolic > 100 or if patient has dizziness or numbness as well as fever or headache not controlled with OTC Tylenol they are to return to the ED. Ema verbalized understanding and in agreement withplan. Reviewed with patient home care recommendations, reasons to call back and symptoms that require immediate evaluation in UC or ER. Patient verbalized understanding and agrees. Disposition reviewed and Telesick/PCP Wednesday at 1015 appt provided for review of BP and status of knee pain. Multiple (2) protocols were used on this call. Disposition for Call: See in Office or Video Visit within 3 Days Protocol Used: Blood Pressure - High (Adult) Protocol-Based Disposition: See in Office or Video Visit within 3 Days Video visit offered and caller accepted Positive Triage Question: * Systolic BP >= 160 OR Diastolic >= 100 * All higher-acuity triage questions were negative Care Advice Discussed: * High Blood Pressure * Reasons To Call Back - Headache, blurred vision, difficulty talking, or difficulty walking occurs - Chest pain or difficulty breathing occurs - You want to go into the office for a blood pressure check - You become worse Protocol Used: Knee Pain (Adult) Protocol-Based Disposition: See in Office or Video Visit within 3 Days Video visit offered and caller accepted Positive Triage Questions: * Moderate pain (e.g., symptoms interfere with work or school, limping) and present > 3 days * Patient wants to be seen * All higher-acuity triage questions were negative Care Advice Discussed: * Pain Medicines * Reasons To Call Back - Moderate pain (interferes with normal activities, limping) lasts over 3 days - Mild pain lasts over 7 days - Signs of infection occur (spreading redness, warmth, fever) - You become worse * Telephone Encounter - Edwige El - 05/05/2024 3:26 PM EDT Tc from [facility] Symptoms: High Blood Pressure - Caller Reports, Headache Outcome: Talk to a nurse or provider within 15 minutes Reason: Severe headache The caller accepted this outcome. [phone] (pt- congolese) B/P Readin/102 documented in this encounter Plan of Treatment Upcoming Encounters Date Type Department Care Team ([facility] st Contact Info) Description 05/09/2024 11:30 AM EDT Telemedicine [facility] MED & PEDS [address] [place] [address] Toro Silva MD [address] [place] [address] Arrived 07/04/2024 10:30 AM EDT Telemedicine [facility] MED & PEDS [address] [place] [address] Toro Silva MD [address] [place] [address] documented as of this encounter Visit Diagnoses Not on filedocumented in this encounter Additional Health Concerns Assessment Noted Time PHQ-9 Depression Total Score: 11 023 9:53 AM EST documented as of this encounter Care Teams Cleaner Touch Up Worker Relationship Specialty Start Date End Date Toro Silva MD [address] [place] [address] PCP - General Internal Medicine 07/09/19 Grazyna Alvarado Vendor Management ConsultantFulfillment Mail Clerk 08/06/23 documented as of this encounter
--- OUTSIDE RECORDS SUMMARY | 2024-05-09 09:45 | XMS_ITS | Encounter Summary ---
Author Organization [employer] Address [address] [facility] 7t [place] [address] Care Team Providers Care Truck Loader Overhead Crane Name Role Phone Toro Silva MD Primary Care Prov ider Encounter Details Date Type Department Care Team (Latest Contact Info) Description 04/21/2019 Abstract [facility] Dental, Provider, DDS Social History [...] Info) Description 05/09/2024 11:30 AM EDT Telemedicine [facility] MED & PEDS [address] [place] [address] Toro Silva MD 505 [place] [address] Arrived 07/04/2024 10:30 AM EDT Telemedicine [facility] MED & PEDS [address] [place] [address] Toro Silva MD [address] [place] [address] documented as of this encounter Visit Diagnoses Not on filedocumented in this encounter Care Teams Truck Loader Overhead Crane Relationship Specialty Start Date End Date Toro Silva MD [address] [place] [address] [address] PCP - General Internal Medicine 07/09/19 Grazyna Alvarado Fellmongery WorkerTransition Mgr 08/06/23 documented as of this encounter
--- OUTSIDE RECORDS SUMMARY | 2024-05-09 09:45 | XMS_ITS | Encounter Summary ---
Author Organization [employer] Address [address] 7t [place] [address] Care Team Providers Care Service Dispatcher Name Role Phone Toro Silva MD Primary Care Prov ider Reason for Visit * Reason Comments Med Refill Encounter Details Date Type Department Care Team ([facility] st Contact Info) Description 09/29/2023 Refill [facility] CHC MED & PEDS [address] [place], [place] [phone] Sophy Rubi MD [address] [place] [address] Neuropathy Social History Tobacco Use Types Packs/Day [...] Info) Description 05/09/2024 11:30 AM EDT Telemedicine [facility] MED & PEDS [address] [place] [address] Toro Silva MD [address] [place] [address] Arrived 07/04/2024 10:30 AM EDT Telemedicine [facility] MED & PEDS [address] [place] [address] Toro Silva MD [address] [place] [address] documented as of this encounter Visit Diagnoses Diagnosis Neuropathy Mononeuritis of unspecified site documented in this encounter Additional Health Concerns Assessment Noted Time PHQ-9 Depression Total Score: 11 023 9:53 AM EST documented as of this encounter Care Teams Service Dispatcher Relationship Specialty Start Date End Date Toro Silva MD [address] [place] [address] PCP - General Internal Medicine 07/09/19 Grazyna Alvarado Folding Machine FeederWrapper Selector 08/06/23 documented as of this encounter
--- OUTSIDE RECORDS SUMMARY | 2024-05-09 09:46 | XMS_ITS | Encounter Summary ---
Author Organization [employer] Address [address] 7t [place] [address] Care Team Providers Care Senior Mechanical Estimator Name Role Phone Toro Silva MD Primary Care Prov ider Encounter Details Date Type Department Care Team (Late st Contact Info) Description 05/22/2023 Orders Only [facility] MEDICINE [address] [place] [address] ProviderHarley MD Social History Tobacco Use Types [...] Info) Description 05/09/2024 11:30 AM EDT Telemedicine [facility] MED & PEDS [address] [place] [address] Toro Silva MD [address] [place] [address] Arrived 07/04/2024 10:30 AM EDT Telemedicine [facility] MED & PEDS [address] [place] [address] Toro Silva MD [address] [place] [address] documented as of this encounter Procedures Procedure [...] as of this encounter Care Teams Senior Mechanical Estimator Relationship Specialty Start Date End Date Toro Silva MD [address] [place] [address] PCP - General Internal Medicine 07/09/19 Grazyna Alvarado Printing MechanistBill Of Materials Clerk 08/06/23 documented as of this encounter
--- OUTSIDE RECORDS SUMMARY | 2024-05-09 09:46 | XMS_ITS | Encounter Summary ---
Author Organization [employer] Address [address] 7t [place] [address] Care Team Providers Care Guest Relations Executive Name Role Phone Toro Silva MD Primary Care Prov ider Reason for Visit * Reason Onset Date Comments Hospital Follow-up 04/20/2024 Encounter Details Date Type Department Care Team ([facility] st Contact Info) Description 04/20/2024 Telephone [facility] CHC MED & PEDS [address] [place], [place] [phone] Toro Silva MD [address] [place] [address] Hospital Follow-up Social History Tobacco Use Types [...] call regarding Prior message. Contact pt at [phone] * Telephone Encounter - Courtney Cortes - 04/20/2024 10:47 AM EDT TC from pt HEAT TREATER HELPER Tonya returning call to care assistant regarding HDF. Contact Tonya at [phone] documented in this encounter Plan of Treatment Upcoming Encounters Date Type Department Care Team (Late st Contact Info) Description 05/09/2024 11:30 AM EDT Telemedicine [facility] MED & PEDS [address] [place] [address] Toro Silva MD [address] [place] [address] Arrived 07/04/2024 10:30 AM EDT Telemedicine [facility] MED & PEDS 505 [place] [address] Toro Silva MD [address] [place] [address] documented as of this encounter Visit Diagnoses Not on filedocumented in this encounter Additional Health Concerns Assessment Noted Time PHQ-9 Depression Total Score: 11 023 9:53 AM EST documented as of this encounter Care Teams Guest Relations Executive Relationship Specialty Start Date End Date Toro Silva MD [address] [place] [address] [place] [address] PCP - General Internal Medicine 07/09/19 Grazyna Alavrado Risk OfficerVideo Tape Duplicator 08/06/23 documented as of this encounter
--- OUTSIDE RECORDS SUMMARY | 2024-05-09 09:46 | XMS_ITS | Encounter Summary ---
Author Organization [employer] Address [address] [facility] 7t [place] [address] Care Team Providers Care Station Worker Name Role Phone Toro Silva MD Primary Care Prov ider Reason for Visit * Reason Comments Med Refill Encounter Details Date Type Department Care Team (Late Contact Info) Description 07/11/2022 Refill [facility] MEDICINE [address] [place] [address] Toro Silva MD 505 [place] [address] Chronic pain syndrome Social History Tobacco Use [...] Info) Description 05/09/2024 11:30 AM EDT Telemedicine [facility] CHC MED & PEDS [address] [place] [address] Toro Silva MD [address] [place], [place] [phone] Arrived 07/04/2024 10:30 AM EDT Telemedicine [facility] CHC MED & PEDS [address] [place] [address] Toro Silva MD 505 [place] [address] documented as of this encounter Visit Diagnoses Diagnosis Chronic pain syndrome documented in this encounter Additional Health Concerns Assessment Noted Time PHQ-9 Depression Total Score: 0 07/02/19 23 9:45 AM EDT documented as of this encounter Care Teams Station Worker Relationship Specialty Start Date End Date Toro Silva MD 505 [place] [address] PCP - General Internal Medicine 07/09/19 Grazyna Alvarado Grocery Stock ClerkVisual Display Associate 08/06/23 documented as of this encounter
--- OUTSIDE RECORDS SUMMARY | 2024-05-09 09:46 | XMS_ITS | Clinical Summary ---
Demographics Address [address] [place] [address] [address] [place] [address] Home Phone Home Phone Preferred Language es Marital Status Unknown Roman Catholic Affiliation Unknown Race Unknown Ethnic Group Unknown Author Organization [facility], Address [address] [place] [address] [place] [address] Phone Care Team Providers Care Wire Brusher Name Role Phone Toro Bravo Primary Care Provider [phone] Allergies Active Allergy Reactions Criticality Noted Date [...] 0 Active ergocalciferol (VITAMIN D-2) 1.25 MG (90440 UT) capsule TAKE 1 CAPSULE BY MOUTH [...] to complete this topic Insurance [address] [place] [address] [place] [address] [place] [address] * Guarantor: Davon Gonzalez Account Type Relation to Patient Date of Phone Billing Address Personal/Family Self 1965 [address] [place] [address] Care Teams Wire Brusher Relationship Specialty Start Date End Date Toro Bravo PCP - General Internal Medicine 09/06/19
--- OUTSIDE RECORDS SUMMARY | 2024-05-09 09:46 | XMS_ITS | Encounter Summary ---
Author Organization [employer] Address [address] 7t [place] [address] Care Team Providers Care Clay Dry Press Helper Name Role Phone Toro Silva MD Primary Care Prov ider Reason for Visit * Reason Onset Date Comments Med Refill 08/12/2022 Encounter Details Date Type Department Care Team ([facility] st Contact Info) Description 08/12/2022 Telephone [facility] MED & PEDS [address] [place], [place] [phone] Toro Silva MD 505 [place] [address] Med Refill Social History Tobacco Use Types [...] Description 05/09/2024 11:30 AM EDT Telemedicine [facility] MED & PEDS 505 [place] [address] Toro Silva MD [address] [place] [address] Arrived 07/04/2024 10:30 AM EDT Telemedicine [facility] MED & PEDS [address] [place] [address] Toro Silva MD 505 [place] [address] documented as of this encounter Visit Diagnoses Not on filedocumented in this encounter Additional Health Concerns Assessment Noted Time PHQ-9 Depression Total Score: 0 07/02/19 23 9:45 AM EDT documented as of this encounter Care Teams Clay Dry Press Helper Relationship Specialty Start Date End Date Toro Silva MD [address] [place] [address] PCP - General Internal Medicine 07/09/19 Grazyna Alvarado Global CeoDigester Operator 08/06/23 documented as of this encounter
--- OUTSIDE RECORDS SUMMARY | 2024-05-09 09:46 | XMS_ITS | Encounter Summary ---
Author Organization [employer] Address [address] 7t [place] [address] Care Team Providers Care Wood Box Maker Name Role Phone Toro Silva MD Primary Care Prov ider Encounter Details Date Type Department Care Team (Late st Contact Info) Description 04/21/2024 Telephone [facility] MEDICINE [address] [place] [address] Toro Silva MD [address] [place], [place] [phone] Social History Tobacco Use Types Packs/Day Years [...] 05/09/2024 11:30 AM EDT Telemedicine [facility] MED & PEDS [address] [place] [address] Toro Silva MD [address] [place] [address] Arrived 07/04/2024 10:30 AM EDT Telemedicine [facility] MED & PEDS [address] [place] [address] Toro Silva MD [address] [place] [address] documented as of this encounter Visit Diagnoses Not on filedocumented in this encounter Additional Health Concerns Assessment Noted Time PHQ-9 Depression Total Score: 11 023 9:53 AM EST documented as of this encounter Care Teams Wood Box Maker Relationship Specialty Start Date End Date Toro Silva MD [address] [place] [address] PCP - General Internal Medicine 07/09/19 Grazyna Alvarado Color FinisherHat Copyist 08/06/23 documented as of this encounter
--- OUTSIDE RECORDS SUMMARY | 2024-05-09 09:46 | XMS_ITS | Encounter Summary ---
Author Organization [employer] Address [address] 7t [place] [address] Care Team Providers Care Ultimate Hoops Trainer Name Role Phone Toro Silva MD Primary Care Prov ider Reason for Visit * Reason Onset Date Comments Durable Medical Equipment 04/12/2024 Encounter Details Date Type Department Care Team ([facility] st Contact Info) Description 04/12/2024 Telephone [facility] CHC MED & PEDS [address] [place], [place] [phone] Toro Silva MD 505 [place] [address] Durable Medical Equipment Social History Tobacco Use [...] Please provide DX to support. [facility] stating pt needs new crutches [...] [facility] [address] [place] [address] Toro Silva MD [address] [place] [address] Arrived 07/04/2024 10:30 AM EDT Telemedicine [facility]EDS [address] [place] [address] Toro Silva MD [address] [place] [address] documented as of this encounter Visit Diagnoses Not on filedocumented in this encounter Additional Health Concerns Assessment Noted Time PHQ-9 Depression Total Score: 11 023 9:53 AM EST documented as of this encounter Care Teams Ultimate Hoops Trainer Relationship Specialty Start Date End Date Toro Silva MD [address] [place] [address] PCP - General Internal Medicine 07/09/19 Grazyna Alvarado Crusher SetterTemper Mill Operator 08/06/23 documented as of this encounter
--- OUTSIDE RECORDS SUMMARY | 2024-05-09 09:46 | XMS_ITS | Encounter Summary ---
Author Organization [employer] Address [address] 7[address] [place] [address] Care Team Providers Care Medical Communication Specialist Name Role Phone Toro Silva MD Primary Care Prov ider Reason for Visit * Reason Onset Date Comments Med Refill 09/29/2023 Encounter Details Date Type Department Care Team ([facility] st Contact Info) Description 09/29/2023 Telephone [facility] MEDICINE [address] [place], [place] [phone] Toro Silva MD 505 [place] [address] Med Refill Social History Tobacco Use Types [...] 100 MG capsule To be sent to: [facility] Pharmacy documented in this encounter Plan of Treatment Upcoming Encounters Date Type Department Care Team (Late st Contact Info) Description 05/09/2024 11:30 AM EDT Telemedicine [facility] MED & PEDS [address] [place] [address] Toro Silva MD [address] [place] [address] Arrived 07/04/2024 10:30 AM EDT Telemedicine [facility] MED & PEDS [address] [place] [address] Toro Silva MD [address] [place] [address] documented as of this encounter Visit Diagnoses Not on filedocumented in this encounter Additional Health Concerns Assessment Noted Time PHQ-9 Depression Total Score: 11 023 9:53 AM EST documented as of this encounter Care Teams Medical Communication Specialist Relationship Specialty Start Date End Date Toro Silva MD [address] [place] [address] PCP - General Internal Medicine 07/09/19 Grazyna Alvarado Eligibility ManagerSystems Coordinator 08/06/23 documented as of this encounter
--- OUTSIDE RECORDS SUMMARY | 2024-05-09 09:46 | XMS_ITS | Clinical Summary ---
Author Organization [employer] Address [address] [facility] [address] [place] [address] Care Team Providers Care Sulky Driver Name Role Phone Toro Silva MD [...] 022 Active fluticasone (Flonase) 50 MCG/ACT nasal sprayIndications :Nasal polyp 1 spray each nostril once a day Strength: 50 MCG/ACT 16 g 2 022 Active Loratadine (Claritin) 10 MG capsuleIndicatio ns:Chronic rhinitis Take 1 capsule by mouth in [...] 3 024 2024 Active TRUEplus Lancets 33G [facility] TEST BLOOD SUGAR FOUR TIMES DAILY 100 each 11 024 Active Alcohol Swabs (Alcohol Prep) 70 % pads USE DIRECTED FOUR TIMES DAILY 100 each 11 024 Active topiramate 50 MG tabletIndication s:Chronic migraine w/o aura w/o status migrainosus, not intractable TAKE 1 TABLET BY MOUTH AT BEDTIME 30 tablet 7 024 2024 Active gabapentin (Neurontin) 100 MG capsuleIndicatio ns:Neuropathy TAKE 1 CAPSULE BY MOUTH THREE TIMES DAILY IN THE MORNING, EVENING, AND BEDTIME 90 capsule 024 Active FREESTYLE LITE test stripIndications :Type 2 diabetes mellitus with stage 3b chronic kidney disease, with long-term current use of insulin ([facility]) TEST BLOOD SUGAR FOUR TIMES DAILY 100 strip 11 024 Active lisinopril 40 MG tabletIndication s:Primary hypertension TAKE 1 TABLET BY MOUTH EVERY MORNING 90 tablet 3 024 Active Dulaglutide 4.5 MG/0.5ML solution auto-injector Inject 0.5 mL (4.5 mg) under the skin 1 (one) time per week. 3 mL 3 024 Active atorvastatin (Lipitor) 80 MG tabletIndication s:Mixed hyperlipidemia TAKE 1 TABLET BY MOUTH AT BEDTIME 90 tablet 1 025 Active carvedilol (Coreg) 25 MG tabletIndication s:Primary hypertension Take 1 tablet (25 mg) by mouth with breakfast and with evening meal. 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 30 tablet 11 025 2025 Active Xarelto 2.5 MG tabletIndication s:Pulmonary embolism and infarction (CMS/HCC) TAKE 1 TABLET BY MOUTH TWICE DAILY 60 tablet 3 024 2024 Discontinued topiramate 50 MG tabletIndication s:Chronic migraine w/o aura w/o status migrainosus, not intractable Take 1 tablet by mouth at bedtime. 30 tablet 7 024 2024 Discontinued(D uplicate order (will not trigger notification to Pharmacy)) gabapentin (Neurontin) 100 MG capsuleIndicatio ns:Neuropathy TAKE 1 CAPSULE BY MOUTH THREE TIMES DAILY IN THE MORNING, EVENING, AND BEDTIME 90 capsule 025 2024 Discontinued gabapentin (Neurontin) 100 MG capsuleIndicatio ns:Neuropathy TAKE 1 CAPSULE BY MOUTH THREE TIMES DAILY IN THE MORNING, EVENING, AND BEDTIME 90 capsule 025 2024 Discontinued(D uplicate order (will not trigger notification to Pharmacy)) Active Problems Problem Noted Date Diagnosed Date [...] (08/04/2022 2:39 PM EDT): Followed by cardiology Betito filter in place 01/07/2018 Hemiparesis affecting left [...] Eye exam pending to be done at [facility] Assessment & Plan (04/07/2023 1:46 PM EST): [...] Encounters Date Type Department Care Team Description 05/09/2024 Travel 05/08/2024 Telephone [facility]C MED & PEDS [address] [place] [address] Toro Silva MD 05/05/2024 Telephone [facility] MEDICINE [address] [place], [place] [phone] Toro Silva MD Nurse Triage 05/03/2024 2:00 PM EDT Office Visit [facility] PEDS [address] [place] [address] Chinyere Hodgson MD Effusion of right knee (Primary Dx) 05/03/2024 Travel 05/02/2024 Telephone [facility] MED & PEDS [address] [place] [address] Toro Silva MD Nurse Triage 05/01/2024 Telephone [facility] MED & PEDS [address] [place] [address] Toro Silva MD 04/28/2024 Telephone [facility] MEDICINE [address] [place] [phone] Toro Silva MD Medication Question 04/24/[address] [address] Toro Silva MD Nurse Triage 04/21/[address] [address] Toro Silva MD 04/21/2024 Population Health Risk Score [facility] () Department [address] [place] [phone] Provider, Population Health Generic 04/20/[address] [address] [facility] 04/20/2024 Patient Outreach [facility] MED & PEDS [address] [place] [address] Toro Silva MD Transition Of Care (Tcm) (HDF- LVM ) 04/20/2024 Telephone [facility] MED & PEDS [address] [place] [address] Toro Silva MD Hospital Follow-up 04/19/2024 Patient Outreach [facility] MED & PEDS [address] [place] [address] Toro Silva MD Transition Of Care (Tcm) (HDF- Unscheduled LVM) 04/18/2024 Refill [facility] MED & PEDS [address] [place], [place] [phone] Toro Silva MD Neuropathy 04/16/2024 Orders Only GENERIC EXTERNAL DATA DEPARTMENT Provider, Generic External Data 04/12/2024 Telephone [facility] MED & PEDS [address] [place] [address] Toro Silva MD Durable Medical Equipment 04/12/2024 Refill [facility] MED & PEDS [address] [place] [address] Toro Silva MD Pulmonary embolism and infarction ([facility]) 04/06/2024 Orders Only GENERIC EXTERNAL DATA DEPARTMENT Provider, Generic External Data 04/03/2024 Refill [facility] MED & PEDS [address] [place] [address] Toro Silva MD CKD stage 3 due to type 2 diabetes mellitus ([facility]) 03/20/2024 Refill [facility] MED & PEDS [address] [place] [address] Toro Silva MD Neuropathy; Iron deficiency anemia secondary to inadequate dietary iron intake 03/16/2024 Orders Only GENERIC EXTERNAL DATA DEPARTMENT Provider, Generic External Data 03/13/2024 Refill [facility] MEDICINE [address] [place] [address] Toro Silva MD Primary hypertension 03/07/2024 Telephone [facility] MED & PEDS [address] [place] [address] Toro Silva MD Medication Question 02/22/2024 Refill [facility] MEDICINE [address] [place] [address] Toro Silva MD Primary hypertension 02/22/2024 Refill [facility] MEDIC[facility] [address] [place] [address] Toro Silva MD Primary hypertension 02/21/2024 Refill [facility] MED & PEDS [address] [place] [address] Toro Silva MD Neuropathy 02/10/2024 Refill [facility] MEDICINE [address] [place] [address] Toro Silva MD Mixed hyperlipidemia from Last [...] Sign Reading Time Taken Comments Blood Pressure 163/96 05/03/2024 2:10 PM EDT Pulse 112 05/03/2024 2:10 PM EDT Temperature 36.8 ??C (98.2 ??F) 05/03/2024 2:10 PM ED T Respiratory Rate 20 05/03/2024 2:10 PM EDT Oxygen Saturation 98% 05/03/2024 2:10 PM EDT Inhaled Oxygen Concentration - - Weight 105 kg (232 lb) 05/03/2024 2:10 PM EDT Height 162.6 cm (5' 4 ) 05/03/2024 2:10 PM EDT Body Mass Index 39.82 05/03/2024 2:10 PM EDT Plan of Treatment Upcoming Encounters Date Type Department Care Team (Late st Contact Info) Description 05/09/2024 11:30 AM EDT Telemedicine [facility] MED & PEDS [address] [place] [address] Toro Silva MD [address] [place] [address] Arrived 07/04/2024 10:30 AM EDT Telemedicine [facility] MED & PEDS [address] [place] [address] Toro Silva MD [address] [place] [address] Health Maintenance Due Date Last Done Comments [...] EDT Narrative 04/16/2024 10:56 PM EDT ? [facility] ?[address] ?[place] [address] ? CT Scan Report ? Signed ? Patient: Davon Gonzalez ?MR#: [id number] ? : 1965 ?Acct:[id number] ? Age/Sex: 58 / M ?ADM Date: 04/16/24 ? Loc: HO.ED ? Attending Dr: ? Ordering Physician: Nubia Ordonez ?? Date of Service: 04/16/24 ?? Procedure(s): CT knee RT w IV con ?? Accession Number(s): [id number] ? cc: Toro Silva MD; Nubia Ordonze ? Report Number: ?? [id number]: Total DLP = ??200.00 mGy-cm ? CLINICAL [...] ? DD/ 54 ? TD/TT: 04/16/242254 ? Conduit Cleaner: ? Procedure Note Donobi, Image - 04/17/[address] [place] [address] [address] Scan Report Signed Patient: Davon GonzalezMR#: [id number] : 1965Acct:[id number] Age/Sex: 58 / MADM Date: 04/16/24 Loc: HO.ED Attending Dr: Ordering Physician: Nubia Ordonez Date of Service: 04/16/24 Procedure(s): CT knee RT w IV con Accession Number(s): [id number] cc: Toro Silva MD; Nubia Ordonez Report Number: [id number]: Total DLP = 200.00 mGy-cm CLINICAL HISTORY: [...] in OV> 04/16/242255 DD/ 54 TD/TT: 04/16/242254 Conduit Cleaner: [facility] External Provider IMG CT PROCEDURES Edited Result - Final * Type and screen (04/16/2024 10:51 PM EDT) Blood Type AP [facility] Antibody Screen NEGATIVE [facility] 04/16/2024 10:5 1 PM EDT 04/16/2024 10:54 PM EDT Generic External Data Provider LAB BLOOD BANK TE ST ORDERABLES Final Result [facility] [address] [place] [phone] * Cell Count and Differential, Synovial Fluid (04/16/2024 10:41 PM EDT) Source Synovial Fluid right knee [facility] WBC Synovial Fluid 6.521 X10*3/u L [facility] Comment:Body Fluid WBC is a total nucleated cell count.When a differential is performed, the specimen isconcentrated by cytocentrifugation. This sometimes resultsin the number of cells in the differential being greaterthan the actual cell count performed on thenon-concentrated specimen. Synovial Fluid RBC 0.015 X10*6/u L [facility] Comment:The reference interv al(s) and other method performancespecifications are unavailable for this body fluid.Comparison of the result with concentration in the blood,serum, or plasma is recommended. Neutrophils Synovial Fluid 84 % [facility] Lymphocytes Synovial Fluid 3 % [facility] Monocytes Synovial Fluid 13 % [facility] 04/16/2024 10:4 1 PM EDT 04/16/2024 10:46 PM EDT Narrative [facility] - 04/16/2024 11:28 PM EDT [id number] knee us Generic External Data Provider LAB BODY FLUIDS A ND STOOLS ORDERABLES Final Result Performing Organization Address [facility]/ZIP Co de Phone Number [facility] [address] [place] [phone] * Lactic Acid (04/16/2024 8:05 PM EDT) [facility] Lactic Acid 1.1 0.5 - 2.0 mmol/L [facility] 04/16/2024 8:05 PM EDT 04/16/2024 8:25 PM EDT Generic External Data Provider LAB BLOOD ORDERAB LES Final Result Performing Organization Address [facility] de Phone Number [facility] [address] [place] [phone] * (ABNORMAL) CBC auto differential (04/16/2024 7:54 PM EDT) [facility] White Blood Count 13.1(H) 4.8 - 10.8 X10*3/uL [facility] Red Blood Count 4.34(L) 4.60 - 5.80 X10*6/uL [facility] Hemoglobin 12.6(L) 14.0 - 18.0 g/dl [facility] Hematocrit 37.4(L) 42.0 - 52.0 % [facility] Mean Corpuscular Volume 86.2 80.0 - 98.0 fL [facility] Mean Corpuscular Hemoglobin 29.0 27.0 - 33.0 pg [facility] Mean Corpuscular HGB Conc 33.7 31.0 - 36.0 g/dl [facility] Red Cell Distribution Width 13.4 11.0 - 16.0 % [facility] Platelet Count 266 160 - 400 X10*3/uL [facility] Mean Platelet Volume 10.4 9.4 - 12.4 fL [facility] Neutrophils Percent Auto 74.4(H) 45 - 73 % [facility] Imm Gran Pct Auto 0.4 0.0 - 0.4 % [facility] Lymphocytes Percent Auto 16.4(L) 20 - 40 % [facility] Monocytes Percent Auto 8.3 2 - 11 % [facility] Eosinophils Percent Auto 0.3 0 - 4 % [facility] Basophils Percent Auto 0.2 0 - 2 % [facility] NRBC Pct Auto 0.0 0.0 - 0.2 /100WBC [facility] Neutrophils Absolute Auto 9.7(H) 2.0 - 8.3 x10*3/uL [facility] Imm Gran Abs Auto 0.05(H) 0.00 - 0.03 X10*3/uL [facility] Lymphocytes Absolute Auto 2.2 1.2 - 4.9 X10*3/uL [facility] Monocytes Absolute Auto 1.1 0.1 - 1.2 X10*3/uL [facility] Eosinophils Absolute Auto 0.0 0.0 - 0.4 X10*3/uL [facility] Basophils Absolute Auto 0.0 0.0 - 0.2 X10*3/uL [facility] NRBC Abs Auto 0.000 0.0 - 0.012 X10*3/uL [facility] 04/16/2024 7:54 PM EDT 04/16/2024 7:56 PM EDT us Generic External Data Provider LAB BLOOD ORDERAB LES Final Result [facility] [address] [place] [address] [phone] * (ABNORMAL) Sed Rate by Modified Swati (04/16/2024 7:54 PM EDT) Erythrocyte Sedimentation Rate 75(H) 0 - 15 MM/HR [facility] Comment:Patients with polycy themia and many hemoglobin abnormalitiesmay have depressed sed rates whereas patients with anemiamay have elevated sed rates. 04/16/2024 7:54 PM EDT 04/16/2024 7:56 PM EDT Generic External Data Provider LAB BLOOD ORDERAB LES Final Result Performing Organization Address [facility] de Phone Number [facility] [address] [place] [phone] * (ABNORMAL) C-reactive Protein (04/16/2024 7:54 PM EDT) C Reactive Protein 9.65(H) < or = 0.50 mg/dL [facility] 04/16/2024 7:54 PM EDT 04/16/2024 7:56 PM EDT Generic External Data Provider LAB BLOOD ORDERAB LES Final Result Performing Organization Address [facility] Phone Number [facility] [address] [place] [phone] * (ABNORMAL) Uric acid (04/16/2024 7:54 PM EDT) Uric Acid 9.0(H) 3.4 - 7.0 mg/dL [facility] 04/16/2024 7:54 PM EDT 04/16/2024 7:56 PM EDT Generic External Data Provider LAB BLOOD ORDERAB LES Final Result Performing Organization Address [facility] de Phone Number [facility] [address] [place] [phone] * (ABNORMAL) Magnesium (04/16/2024 7:54 PM EDT) Magnesium 1.4(LL) 1.6 - 2.6 mg/dL [facility] Comment:Critical value for t est(s): MAGS Results called to mi back by: Elder ELIAS Person calling: [email or web address] Date: 04/16/24Time:2016 04/16/2024 7:54 PM EDT 04/16/2024 7:56 PM EDT us Generic External Data Provider LAB BLOOD ORDERAB LES Final Result [facility] [address] [place] [phone] [phone] * (ABNORMAL) Comprehensive Metabolic Panel (04/16/2024 7:54 PM EDT) Sodium 141 135 - 145 mmol/L [facility] Potassium 4.0 3.3 - 5.1 mmol/L [facility] Chloride 105 96 - 108 mmol/L [facility] Carbon Dioxide 25 22 - 29 mmol/L [facility] Anion Gap 15 12 - 20 [facility] Urea Nitrogen (BUN) 27(H) 9 - 16 mg/dL [facility] Creatinine, Serum 1.67(H) 0.5 - 1.4 mg/dL [facility] Creatinine Clr Calc Pharmacy 50.6 [facility] Comment:eGFR (calculated fro m the MDRD study equation) and eCrCl(calculated from the Cockcroft-Gault equation) are based ondifferent parameters and may not yield comparable results.If eCrCl result is absurd, please check patient'sheight/weight. Estimated Glomerular Filt Rate 42 [facility] Comment:Chronic Kidney Disea se: Estimated GFR < 60 mL/min/1.96y3Skgmgf Kidney Disease: Estimated GFR < 15 mL/min/1.73m2 Glucose 139(H) 60 - 115 mg/dL [facility] Calcium 9.6 8.4 - 10.2 mg/dL [facility] Bilirubin, Total 0.6 0.0 - 1.0 mg/dL [facility] Aspartate Amino Transferase 18 5 - 37 U/L [facility] Alanine Aminotransferase 14 0 - 40 U/L [facility] Total Protein 8.5(H) 6.5 - 8.0 g/dL [facility] Albumin Level 4.2 3.5 - 5.0 g/dL [facility] Alkaline Phosphatase 86 39 - 117 U/L [facility] 04/16/2024 7:54 PM EDT 04/16/2024 7:56 PM EDT us Generic External Data Provider LAB BLOOD ORDERAB LES Final Result [facility] [address] [place] [phone] * XR Knee 4+ Views Right (04/16/2024 7:10 PM EDT) Anatomical Region Laterality Modality Lower Extremities, Knee Right Radiogra phic Imaging 04/16/2024 7:10 PM EDT Narrative 04/16/2024 7:11 PM EDT ? [facility] ?[address] ?[place] [address] ?XRay Report ? Signed ? Patient: Davon Gonzalez ?MR#: [id number] ? : 1965 ?Acct:[id number] ? Age/Sex: 58 / M ?ADM Date: 04/16/24 ? Loc: HO.ED ? Attending Dr: ? Ordering Physician: Eduardo Kiser ?? Date of Service: 04/16/24 ?? Procedure(s): XR knee RT 4V ?? Accession Number(s): [id number] ? cc: Eduardo Kiser; Toro Silva MD ? CLINICAL HISTORY: Right knee pain ? 4 view right knee ? Comparison: X-rays of the right knee from 04/08/2020 ? Findings: ?? No significant change in right knee arthroplasty hardware or adjacent ?? palmar. Jrohsmtl-in-ildip effusion present. No new fracture or lucency. ?? Old healed fracture of the proximal fibula diaphysis unchanged with bony ?? bridging and angulation. ?? Vascular calcifications are redemonstrated. ? IMPRESSION: ?? 1. No hardware loosening or significant change of the right knee ?? arthroplasty hardware compared to 04/08/2020. ? 2. Fmklwnek-wm-wtdms effusion present. ? This document has been electronically signed by: Brandin Gatica MD on ?? 04/16/2024 19:10:06 ? Dictated By: ?Brandin Gatica MD ? Signed By: ?<Electronically signed by Brandin Gatica MD in OV> ? 04/16/241910 ? DD/ 09 ? TD/TT: 04/16/241909 ? Conduit Cleaner: ? Procedure Note Donotalexandrater, Image - 04/16/[address] [address] XRay Report Signed Patient: Nilesh Gonzalez#: [id number] : 1965Acct:[id number] Age/Sex: 58 / MADM Date: 04/16/24 Loc: HO.ED Attending Dr: Ordering Physician: Eduardo Kiser Date of Service: 04/16/24 Procedure(s): XR knee RT 4V Accession Number(s): [id number] cc: Eduardo Kiser; Toro Silva MD CLINICAL HISTORY: Right knee pain 4 view right knee Comparison: X-rays of the right knee from 04/08/2020 Findings: No significant change in right knee arthroplasty hardware or adjacent palmar. Mnrldmya-xq-flqmb effusion present. No new fracture or lucency. Old healed fracture of the proximal fibula diaphysis unchanged with bony bridging and angulation. Vascular calcifications are redemonstrated. IMPRESSION: 1. No hardware loosening or significant change of the right knee arthroplasty hardware compared to 04/08/2020. 2. Dbvfeaam-sq-dmswx effusion present. This document has been electronically signed by: Brandin Gatica MD on 04/16/2024 19:10:06 Dictated By: Brandin Gatica MD Signed By: <Electronically signed by Brandin Gatica MD in OV> 04/16/241910 DD/ 09 TD/TT: 04/16/241909 Conduit Cleaner: [facility] External Provider IMG XR PROCEDURES Edited Result - Final * Glucose, Whole Blood (04/06/2024 1:24 PM EST) Glucose, Whole Blood 108 60 - 115 mg/dL [facility] Comment:METER #: [id number] Testing performed in the Endocrinology Department [address] , [address], [place]. 04/06/2024 1:24 PM EST 04/06/2024 1:29 PM EST us Generic External Data Provider LAB BLOOD ORDERAB LES Final Result Performing Organization Address City/State/[facility] Co de Phone Number [facility] [address] [place] [address] [phone] * Hematoxylin and Eosin Stain (03/16/2024 10:05 AM EST) 03/16/2024 10:0 5 AM EST 03/16/2024 10:21 AM EST Narrative [facility] - 03/17/2024 3:03 PM EST ----- ------- Name: Davon Gonzalez ? Age/Sex: 58/M ? : 1965 Unit#: [id number] ?? Attend Dr: Valente Drake MD ?Re03/16/24 ?Status: DEP SDC ? Location: HO.SSS ?Disch: ? ----- ------- SPEC : [id number] ?RECD: 03/16/24 ? STATUS: ??SOUT ? REQ NUM: [id number] ? ARLYN: 03/16/24 ? SUBM DR: Valente [...] Copies To: ?? Toro Silva MD ?? [facility] ?? [address] ?? [place] [address] ?? [phone] ?? Valente Drake MD ?? [facility] ?? [address] ?? [place] [address] ?? [phone] ----- ------- Signed (signature on file) Sidney Ruiz MD 03/17/24 1503 ? ----- ------- ? END OF REPORT ? us Generic External Data Provider LAB BLOOD ORDERAB LES Final Result Performing Organization Address [facility]/ZIP Co de Phone Number [facility] [address] [place] [address] [phone] * (ABNORMAL) Glucose, Whole Blood (03/16/2024 9:21 AM EST) Glucose, Whole Blood 142(H) 60 - 115 mg/dL [facility] Comment:METER #: [id number] 03/16/2024 9:21 AM EST 03/16/2024 9:33 AM EST us Generic External Data Provider LAB BLOOD ORDERAB LES Final Result Performing Organization Address [facility]/ZIP Co de Phone Number [facility] [address] [place] [address] [phone] * (ABNORMAL) Hemoglobin A1c (12/15/2023 10:01 AM EST) Hemoglobin A1c 7.4(H) <6.0 % [facility] Comment:Hemoglobin A1C Refer ence Range Adults: 4.8 - 6.0 % Non diabetic: < 6.0 % Goal: < 7.0 %Additional Action Suggested: > 8.0 %Note: Hemoglobin A1c results are invalid for patients with abnormal amounts of HbF. Blood transfusions may impact the HbA1c concentration in the patient sample. Estimated Average Glucose 166 mg/dL [facility] Comment:eAG = Estimated ave rage glucose which is %A1C expressed asaverage glucose, using the formula of the L3J-CmwylrvFjkodcc Glucose study (ADAG), Diabetes Care, Vol.31,#8,Sep. 2007 12/15/2023 10:0 1 AM EST 12/15/2023 11:30 AM EST us Generic External Data Provider LAB BLOOD ORDERAB LES Final Result [facility] [address] [place] [address] [phone] * (ABNORMAL) Lipid Panel, Standard (12/15/2023 10:01 AM EST) Triglycerides 141 <150 mg/dL [facility] Comment:Desirable Triglyceri de: less than 150 mg/dLBorderline High Triglyceride 150-199 mg/dLHigh Triglyceride: 200-499 mg/dLVery High Triglyceride: greater than or equal to 5OO mg/dL Cholesterol 106 <200 mg/dL [facility] Comment:Desirable Cholestero l: less than 200 mg/dLBorderline High Cholesterol: 200-239 mg/dLHigh Cholesterol: greater than 239 mg/dL LDL Cholesterol Calculated 45 <100 mg/dL [facility] Comment:Desirable LDL: less than 100 mg/dLNear Optimal/Above Optimal LDL: 110- 129 mg/dLBorderline High LDL: 130-159 mg/dLHigh LDL: 160-189 mg/dLVery High LDL: greater than or equal to 190 mg/dL HDL Cholesterol 33(L) >40 mg/dL [facility] Comment:Desirable HDL: great er than 40 mg/dL Note: This HDL assay may give artificially low results in patients with liver disease. Blood Venous blood specimen / Unknown 12/15/2023 10:01 AM EST 12/15/2023 11:32 AM EST Toro Perez MD LAB BLOOD ORDERABL ES Final Result Performing Organization Address City/[facility]/ZIP Co de Phone Number [facility] [address] [place] [address] [phone] * HIV-1 RNA, Quantitative, Real-Time PCR with Reflex to Genotype (RTI, PI, Integrase) (05/11/2022 9:42 AM EDT) Pathologist [facility] HIV 1 RNA, QN PCR NOT DETECTED copies/mL [facility], HIV 1 RNA, QN PCR NOT DETECTED Log copies/mL [facility] [place] [facility], Comment: REFERENCE RANGE: NOT DETECTED copies/mL ?NOT DETECTED ??Log copies/mL This test was performed using Real-Time Polymerase Chain Reaction. Reportable range is 20 to 10,000,000 copies/mL (1.30-7.00 Log copies/mL). 05/11/2022 9:42 AM EDT 05/11/2022 9:43 AM EDT Narrative [facility] - 05/14/2022 12:55 AM EDT FASTING:YES FASTING: YES us Toro Perez MD LAB BLOOD ORDERABL ES Final Result Performing Organization Address City/[facility]/ZIP Co de Phone Number [facility] [address], [place] [address] [facility] [facility], [address] [place] [address] * Hepatitis C Antibody with Reflex to HCV, RNA, Quantitative, Real-Time PCR (05/11/2022 9:42 AM EDT) Hepatitis C Antibody NON-REACT TAMERA NON-REACT TAMERA [employer] [place] [facility] Index 0.08 <1.00 [facility] Comment: HCV antibody was non-reactive. There is no laboratory evidence of HCV infection. In most cases, no further action is required. However, if recent HCV exposure is suspected, a test for HCV RNA (test code 94592) is suggested. For additional information please refer to http://education.MoPals/faq/HTL31t7 (This link is being provided for informational/ educational purposes only.) Blood Venous blood specimen / Unknown 05/11/2022 9:42 AM EDT 05/11/2022 9:43 AM EDT Narrative [facility] - 05/14/2022 12:55 AM EDT FASTING:YES FASTING: YES Toro Perez MD LAB BLOOD ORDERABL ES Final Result [facility] [address], [place] [address] [employer] [place] [facility] [address] [place] [address] * Hm Colonoscopy (11/07/2020 6:57 AM EDT) Historical Provider HEALTH MAINTENANCE Final Result from Last 3 Months or Most Recently Relevant to Health Maintenance Insurance [facility] C3 Care Teams Sulky Driver Relationship Specialty Start Date End Date BravoToro Brandon MD [address] [place] [address] PCP - General Internal Medicine 07/09/19 Grazyna Alvarado Vice PresidentHematology Nurse Educator 08/06/23
--- OUTSIDE RECORDS SUMMARY | 2024-05-09 09:46 | XMS_ITS | Encounter Summary ---
Author Organization [employer] Address [address] [facility] 7t [place] [address] Care Team Providers Care Garageman Name Role Phone Toro Silva MD Primary Care Prov ider Reason for Visit * Reason Onset Date Comments Med Refill 04/13/2022 Encounter Details Date Type Department Care Team ([facility] st Contact Info) Description 04/13/2022 Refill [facility] CHC MED & PEDS [address] [place], [place] [phone] Toro Silva MD [address] [place] [address] Social History Tobacco Use Types Packs/Day Years [...] [employer]) 100 UNIT/ML pen Please sent to [facility] - [place], [place] - [address] documented in this encounter Plan of Treatment Upcoming Encounters Date Type Department Care Team (Late st Contact Info) Description 05/09/2024 11:30 AM EDT Telemedicine [facility] MED & PEDS [address] [place] [address] Toro Silva MD [address] [place] [address] Arrived 07/04/2024 10:30 AM EDT Telemedicine [facility] MED & PEDS [address] [place] [address] Toro Silva MD [address] [place] [address] documented as of this encounter Visit Diagnoses Not on filedocumented in this encounter Care Teams Garageman Relationship Specialty Start Date End Date Toro Silva MD [address] [place] [address] PCP - General Internal Medicine 07/09/19 Grazyna Alvarado Senior Net ProgrammerPolice Liaison 08/06/23 documented as of this encounter
== END 2024-05-09 09:37 | disposition home or self-care (01) ==
LOC: HO.ENCR 09:01
PROVIDERS: PCP Internal Medicine; Visit Provider Registered Nurse Diabetes Educator
DX: E11.65 Type 2 diabetes mellitus with hyperglycemia (principal); Z79.4 Long term (current) use of insulin

== ENCOUNTER → 2024-05-09 09:01 | Outpatient (BNVA) | payer MEDICAID, SELFPAY | PROVIDERS: PCP Internal Medicine; Visit Provider Registered Nurse Diabetes Educator | DX: E11.65 Type 2 diabetes mellitus with hyperglycemia (principal); Z79.4 Long term (current) use of insulin | CPT/HCPCS: 99211 ==

== ENCOUNTER 2024-06-13 14:58 | Outpatient (AMB) | payer MEDICAID, SELFPAY ==
--- NOTE | 2024-06-13 15:02 | MHC.OFFVIS ---
Vital Signs 06/13/24 15:03 Height 5 ft 4 in Weight 224 lb BMI 38.4 Intake Visit Reasons: Right knee pain Intake Note: Davon is a 58 year old male who presents with complaints of intermittent right knee pain and swelling. The patient states that he underwent right total knee replacement surgery in [place] approximately 10 years ago. He believes that the surgery was performed at [facility] but he is not sure. He was seen by Dr. Fitzgerald in 2020. He was also evaluated by pain management. A nerve block was performed which gave him fairly good relief. The patient states that he did not follow up with pain management after the block because he was not contacted by the office. He does wear a knee brace at times. 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 He has also had a cerebrovascular accident. He does not wish to go back to [place] for further evaluation. He was recently seen in the emergency room. An aspiration of his right knee was performed. Cultures showed no growth. The aspirate did show crystals consistent with gout. Tank Setter Required: Yes Tank Setter Language: Sheet Metal Worker Maintenance Services: Tank Setter Present Tank Setter Name: ILIANA Cervantes/MELANI Allergies shellfish derived Allergy (Severe, Verified 06/13/24 15:03) SWOLLEN THROAT apple [Apple] Allergy (Intermediate, Verified 06/13/24 15:03) SWELLING egg [Egg] Allergy (Intermediate, Verified 06/13/24 15:03) HIVES influenza virus vaccine, specific [Influenza Virus Vacc,Specific] Allergy (Intermediate, Verified 06/13/24 15:03) SWELLING lisinopril [Lisinopril] Allergy (Intermediate, Verified 06/13/24 15:03) Itching Penicillins Allergy (Mild, Verified 06/13/24 15:03) RASH nifedipine [From Procardia] Allergy (Unknown, Verified 06/13/24 15:03) UNKNOWN [facility] Medical History (Updated 04/26/24 @ 00:02 by Background Dajuan) Uncontrolled hypertension Benign skin lesion of cheek Pulmonary embolism Gastritis SUSY (acute kidney injury) Enteritis Epigastric pain Physical deconditioning SOB (shortness of breath) Colon cancer screening Dysphagia Uninodular goiter (nontoxic) Right knee pain Chronic pain Type 2 diabetes mellitus with polyneuropathy Upper abdominal pain H. pylori infection Obesity due to excess calories Blind right eye Goiter Cancer of eye Chronic kidney disease, stage 3 Hemiparesis affecting left side as late effect of cerebrovascular accident CHF (congestive heart failure) History of poliomyelitis GERD (gastroesophageal reflux disease) Morbid obesity Mood disorder Nasal polyps Angina of effort ARTEM (obstructive sleep apnea) Hemiplegia affecting dominant side Asthma Other pulmonary embolism and infarction Left ventricular hypertrophy Syncope Type 2 diabetes mellitus with hyperglycemia, with long-term current use of insulin Hyperlipidemia LDL goal <70 Essential hypertension Surgical History (Updated 06/05/24 @ 14:57 by Fatou Antonio) Hx of colonoscopy History of excision of lesion (~09/09/23) History of carpal tunnel surgery History of right knee joint replacement History of esophagogastroduodenoscopy (EGD) History of cardiac catheterization Hx of knee surgery History of coronary artery stent placement Family History Father Stroke Brain cancer CVD (cardiovascular disease) Diabetes Mother Diabetes Social History Household Members: Other Household Members Other:: CRITICAL CARE PHYSICIAN Housing: Apartment Are you a primary acute care nurse to a significant other at home: No Do you presently have visiting nurse or other home services: Yes (CRITICAL CARE PHYSICIAN) Alcohol intake: never Patient Tobacco Use Status: Never used Tobacco Advance Directives Date on File: 11/08/20 service: No Physical Exam Vital Signs: BMI result Body Mass Index 38.4 Extrem Other: Right knee examination shows that the surgical incision is well healed, no erythema, range of motion from -5 degrees to 90 degrees, no instability Results Reviewed Results Reviewed: X-rays and CT scan of the patient's right knee show a total knee arthroplasty in good position with no signs of loosening Assessment & Plan Assessment & Plan (1) Gout of right knee: Code(s): M10.9 - Gout, unspecified Category: Medical (2) Right knee pain: Code(s): M25.561 - Pain in right knee Category: Medical Plan Mr. Gonzalez presents with right knee pain after undergoing right total knee replacement surgery most likely due to gout. The patient will continue taking his colchicine. I did place a consult to Rheumatology for further evaluation. At this point the patient does not have any indication for surgical intervention. He will follow up with me on an as-needed basis. Feel free to call me at any time should questions regarding his orthopedic management arise. I spent 21 minutes in reviewing the patient's records and imaging studies, seeing the patient and documenting in the medical record. Orders: Referrals Rheumatology Referral M10.9 - Gout, unspecified Coding Level of Care Code New Pt Level 3 (82974) Complex EM visit Add On G2211 Diagnoses Gout of right knee M10.9 Right knee pain M25.561
[2024-06-13 15:03] VITALS: BMI 38.4
--- OUTSIDE RECORDS SUMMARY | 2024-06-13 16:10 | XMS_ITS | Encounter Summary ---
Author Organization [employer] Address [address] [facility] 7t [place] [address] Care Team Providers Care Superintendent Institution Name Role Phone Toro Silva MD Primary Care Prov ider Reason for Visit * Reason Onset Date Comments c/b request 2022 Encounter Details Date Type Department Care Team ([facility] st Contact Info) Description 2022 Telephone [facility]C MED & PEDS [address] [place], [place] [phone] Toro Silva MD [address] [place] [address] c/b request Social History Tobacco Use Types [...] for a call back. TC placed to [facility] Gastro no answer left a message for Joan on voice mail gave [facility] direct number for a call back TC placed to pt for a third time and another message was left for him to contact the [place] nurses. Several messages also left at Gastro office with no call back will send to PCP as FYI. * Telephone Encounter - Carolyn Cha RN - 10/19/2022 11:24 AM EDT Tc from [place] with [facility] requesting a call in regards to pt upcoming colonoscopy appointment on 10/21 Please contact joan at [phone] TC returned to [place] and a message was left for a [...] for a call back. TC placed to [facility] Gastro no answer left a message for Joan on voice mail gave [facility] direct number for a call back * Telephone Encounter - Gianna Antonio - 2022 10:37 AM EDT Tc from [place] with [facility] requesting a call in regards to pt upcoming colonoscopy appointment on 10/21 Please contact joan at [phone] documented in this encounter Plan of Treatment Upcoming Encounters Date Type Department Care Team (Late st Contact Info) Description 07/04/2024 10:30 AM EDT Telemedicine [facility] MED & PEDS [address] [place], [place] [phone] Toro Silva MD [address] [place] [address] documented as of this encounter Visit Diagnoses Not on filedocumented in this encounter Additional Health Concerns Assessment Noted Time PHQ-9 Depression Total Score: 0 07/02/19 23 9:45 AM EDT documented as of this encounter Care Teams Superintendent Institution Relationship Specialty Start Date End Date Toro Silva MD [address] [place] [address] CESAR Hernandez [address] PCP - General Internal Medicine 07/09/19 Grazyna Alvarado Web ProgrammerCriminalist Technician 08/06/23 Wing RIZVI 04/24/24 documented as of this encounter
--- OUTSIDE RECORDS SUMMARY | 2024-06-13 16:10 | XMS_ITS | Encounter Summary ---
Author Organization [employer] Address [address] [facility] 7t [place] [address] Care Team Providers Care Licensed Prosthetist Name Role Phone Toro Silva MD Primary Care Prov ider Reason for Visit * Reason Comments Med Refill Encounter Details Date Type Department Care Team (Late Contact Info) Description 10/16/2022 Refill [facility] MEDICINE [address] [place] [address] Toro Silva MD [address] [place], [place] [phone] Chronic pain syndrome Social History Tobacco Use [...] Department Care Team (Late Contact Info) Description 07/04/2024 10:30 AM EDT Telemedicine [facility] CHC MED & PEDS 505 [place], [place] [phone] Toro Silva MD [address] [place], [place] [phone] documented as of this encounter Visit Diagnoses Diagnosis Chronic pain syndrome documented in this encounter Additional Health Concerns Assessment Noted Time PHQ-9 Depression Total Score: 0 07/02/19 23 9:45 AM EDT documented as of this encounter Care Teams Licensed Prosthetist Relationship Specialty Start Date End Date Toro Silva MD [address] [place] [address] PCP - General Internal Medicine 07/09/19 Grazyna Alvarado Nuclear Supervising OperatorGlue Wheel Operator 08/06/23 Wing RIZVI 04/24/24 documented as of this encounter
--- OUTSIDE RECORDS SUMMARY | 2024-06-13 16:11 | XMS_ITS | Encounter Summary ---
Author Organization [employer] Address [address] [facility] [address] 7[address] [place] [address] Care Team Providers Care Control Systems Specialist Name Role Phone Toro Silva MD Primary Care Prov ider Reason for Visit * Reason Onset Date Comments PT-1 01/17/2024 Encounter Details Date Type Department Care Team ([facility] st Contact Info) Description 01/17/2024 Telephone [facility] MEDICINE [address] [place] [address] Toro Silva MD [address] [place] [address] PT-1 Social History Tobacco Use Types Packs/Day [...] Y/N: Yes Provider name or facility name: [facility] Escort needed: Y/N: Yes Do you have a wheelchair: Y/N: No If yes- Manual or electric: Visits: (1 x 3 months) documented in this encounter Plan of Treatment Upcoming Encounters Date Type Department Care Team (Late st Contact Info) Description 07/04/2024 10:30 AM EDT Telemedicine [facility] MED & PEDS 505 [place] [address] Toro Silva MD 505 [place] [address] documented as of this encounter Visit Diagnoses Not on filedocumented in this encounter Additional Health Concerns Assessment Noted Time PHQ-9 Depression Total Score: 11 023 9:53 AM EST documented as of this encounter Care Teams Control Systems Specialist Relationship Specialty Start Date End Date Toro Silva MD [address] [place] [address] PCP - General Internal Medicine 07/09/19 Grazyna Alvarado Translator/InterpreterSpeech And Language Specialist 08/06/23 Wing RIZVI 04/24/24 documented as of this encounter
--- OUTSIDE RECORDS SUMMARY | 2024-06-13 16:11 | XMS_ITS | Encounter Summary ---
Author Organization [employer] Address [address] [facility] 7t [place] [address] Care Team Providers Care Surgical Appliance Fitter Name Role Phone Toro Silva MD Primary Care Prov ider Encounter Details Date Type Department Care Team (Latest Contact Info) Description 04/21/2019 Abstract [facility] CONVERSIONS Dental, Provider, DDS Social History Tobacco [...] Info) Description 07/04/2024 10:30 AM EDT Telemedicine [facility] CHC MED & PEDS [address] [place] [address] Toro Silva MD [address] [place] [address] documented as of this encounter Visit Diagnoses Not on filedocumented in this encounter Care Teams Surgical Appliance Fitter Relationship Specialty Start Date End Date Toro Silva MD [address] [place] [address] PCP - General Internal Medicine 07/09/19 Grazyna Alvarado Ship Construction TeacherTeacher Elementary [employer] 08/06/23 Wing A 04/24/24 documented as of this encounter
--- OUTSIDE RECORDS SUMMARY | 2024-06-13 16:11 | XMS_ITS | Encounter Summary ---
Author Organization [employer] Address [address] [facility] [address] 7t [place] [address] Care Team Providers Care Instructional Technology Coordinator Name Role Phone Toro Silva MD Primary Care Prov ider Reason for Visit * Reason Onset Date Comments Durable Medical Equipment 04/12/2024 Encounter Details Date Type Department Care Team ([facility] st Contact Info) Description 04/12/2024 Telephone [facility] CHC MED & PEDS 505 [place], [place] [phone] Toro Silva MD [address] [place] [address] Durable Medical Equipment Social History Tobacco Use [...] Please provide DX to support. Tc from kristopher Trujillo stating pt needs new crutches (current ones are worn out) * Telephone Encounter - Courtney Cortes - 04/12/2024 11:37 AM EST Tc from kristopher Trujillo stating pt needs new crutches (current ones are worn out) documented in this encounter Plan of Treatment Upcoming Encounters Date Type Department Care Team (Late st Contact Info) Description 07/04/2024 10:30 AM EDT Telemedicine [facility] MED & PEDS [address] [place], [place] [phone] Toro Silva MD [address] [place] [address] documented as of this encounter Visit Diagnoses Not on filedocumented in this encounter Additional Health Concerns Assessment Noted Time PHQ-9 Depression Total Score: 11 023 9:53 AM EST documented as of this encounter Care Teams Instructional Technology Coordinator Relationship Specialty Start Date End Date Toro Silva MD [address] [place] [address] PCP - General Internal Medicine 07/09/19 Grazyna Alvarado Repairer Welding EquipmentCargo Service Supervisor 08/06/23 Wing RIZVI 04/24/24 documented as of this encounter
--- OUTSIDE RECORDS SUMMARY | 2024-06-13 16:11 | XMS_ITS | Encounter Summary ---
Author Organization [employer] Address [address] [facility] [address] [place] [address] Care Team Providers Care Bakery Products Checker Name Role Phone Toro Silva MD Primary Care Prov ider Reason for Visit * Reason Onset Date Comments Med Refill 09/29/2023 Encounter Details Date Type Department Care Team ([facility] st Contact Info) Description 09/29/2023 Telephone [facility] MEDICINE [address] [place], [place] [phone] Toro Silva MD [address] [place] [address] Med Refill Social History Tobacco Use Types [...] 100 MG capsule To be sent to: [facility] Pharm[facility] documented in this encounter Plan of Treatment Upcoming Encounters Date Type Department Care Team (Late st Contact Info) Description 07/04/2024 10:30 AM EDT Telemedicine [facility] CHC MED & PEDS [address] [place] [address] Toro Silva MD [address] [place] [address] documented as of this encounter Visit Diagnoses Not on filedocumented in this encounter Additional Health Concerns Assessment Noted Time PHQ-9 Depression Total Score: 11 023 9:53 AM EST documented as of this encounter Care Teams Bakery Products Checker Relationship Specialty Start Date End Date Toro Silva MD [address] [place] [address] PCP - General Internal Medicine 07/09/19 Grazyna Alvarado Stores NavalEgg Crater 08/06/23 Wing RIZVI 04/24/24 documented as of this encounter
--- OUTSIDE RECORDS SUMMARY | 2024-06-13 16:11 | XMS_ITS | Encounter Summary ---
Author Organization [employer] Address [address] [facility] [address] 7[address] [place] [address] Care Team Providers Care Drying Rack Changer Name Role Phone Toro Silva MD Primary Care Prov ider Encounter Details Date Type Department Care Team ([facility] st Contact Info) Description 04/21/2024 Telephone [facility] MEDICINE [address] [place] [address] Toro Silva MD [address] [place], [place] [phone] Social History Tobacco Use Types Packs/Day Years [...] Upcoming Encounters Date Type Department Care Team ([facility] st Contact Info) Description 07/04/2024 10:30 AM EDT Telemedicine [facility] MED & PEDS 505 [place] [address] Toro Silva MD [address] [place] [address] documented as of this encounter Visit Diagnoses Not on filedocumented in this encounter Additional Health Concerns Assessment Noted Time PHQ-9 Depression Total Score: 11 023 9:53 AM EST documented as of this encounter Care Teams Drying Rack Changer Relationship Specialty Start Date End Date Toro Silva MD [address] [place] [address] PCP - General Internal Medicine 07/09/19 Grazyna Alvarado Diver HelperPreparation Plant Repairer 08/06/23 Wing RIZVI 04/24/24 documented as of this encounter
--- OUTSIDE RECORDS SUMMARY | 2024-06-13 16:11 | XMS_ITS | Encounter Summary ---
Author Organization [employer] Address [address] 7t [place] [address] Care Team Providers Care Resident Service Coordinator Name Role Phone Toro Silva MD Primary Care Prov ider Reason for Visit * Reason Onset Date Comments Nurse Triage 05/17/2024 Encounter Details Date Type Department Care Team ([facility] st Contact Info) Description 05/17/2024 Telephone [facility] CHC MED & PEDS 505 [place], [place] [phone] Toro Silva MD 505 [place] [address] Nurse Triage Social History Tobacco Use Types [...] encounter Miscellaneous Notes * Telephone Encounter - Patience Quinn RN - 05/17/2024 4:46 PM EDT No historical interpreter needed as this marketing underwriter speaks Japanese. Call returned to Davon Gonzalez to triage below. Reports having elevated BP this afternoon. Pt had already taken BP meds this morning. Per pt was alsoelevated yesterday. Denies any CP, SOB or dizziness. Mild HIGGINS. Pt confirms BP meds. Using Tylenol PRN for pain. Pt reports knee pain, which had telehealth visit for on 05/09/24 with PCP. Pt repeated BP on right arm, currently 174/90 HR 103. Per pt confirms picking up prednisone for knee pain. PT advised will send to PCP to review and advise Primary Care team if RN visit for BP check needed and or further plan of care for HTN management. Reviewed home care advise, ER precautions and reasons to callback. Pt advised to recheck BP 1-2 hours after evening dose of carvedilol to see if BP the same or b yara and record. Pt agrees. Protocol Used: Blood Pressure - High (Adult) Protocol-Based Disposition: See in Office or Video Visit within 3 Days Override (Final) Disposition: Discuss with PCP and Callback by Nurse Override Reason: End of day or office closed Video visit offer not recorded Positive Triage Question: * Systolic BP >= 160 OR Diastolic >= 100 * All higher-acuity triage questions were negative Care Advice Discussed: * High Blood Pressure * Reasons To Call Back - Headache, blurred vision, difficulty talking, or difficulty walking occurs - Chest pain or difficulty breathing occurs - You become worse * Telephone Encounter - Courtney Cortes - 05/17/2024 4:42 PM EDT Tc from Gregorio with [facility] calling to report pt blood pressure today 180/100. Gregorio stated pt finish medication for gout but is still in severe pain and slight headache. Contact pt at [phone] (hungarian) If any questions contact Gregorio at [phone] documented in this encounter Plan of Treatment Upcoming Encounters Date Type Department Care Team (Late st Contact Info) Description 07/04/2024 10:30 AM EDT Telemedicine [facility] MED & PEDS [address] [place] [address] Toro Silva MD [address] [place] [address] documented as of this encounter Visit Diagnoses Not on filedocumented in this encounter Additional Health Concerns Assessment Noted Time PHQ-9 Depression Total Score: 11 023 9:53 AM EST documented as of this encounter Care Teams Resident Service Coordinator Relationship Specialty Start Date End Date Toro Silva MD [address] [place] [address] PCP - General Internal Medicine 07/09/19 Grazyna Alvarado Securities TraderHead Rose Grower 08/06/23 [facility] 04/24/24 documented as of this encounter
--- OUTSIDE RECORDS SUMMARY | 2024-06-13 16:11 | XMS_ITS | Encounter Summary ---
Author Organization [employer] Address [address] 7t [place] [address] Care Team Providers Care Communications Strategist Name Role Phone Toro Silva MD Primary Care Prov ider Reason for Visit * Reason Comments Med Refill Encounter Details Date Type Department Care Team (Late st Contact Info) Description 02/22/2024 Refill [facility] MEDICINE [address] [place] [address] Toro Silva MD [address] [place], [place] [phone] Primary hypertension Social History Tobacco Use Types [...] Info) Description 07/04/2024 10:30 AM EDT Telemedicine [facility] MED & PEDS 505 [place] [address] Toro Silva MD [address] [place] [address] documented as of this encounter Visit Diagnoses Diagnosis Primary hypertension Unspecified essential hypertension documented in this encounter Additional Health Concerns Assessment Noted Time PHQ-9 Depression Total Score: 11 023 9:53 AM EST documented as of this encounter Care Teams Communications Strategist Relationship Specialty Start Date End Date Toro Silva MD [address] [place] [address] PCP - General Internal Medicine 07/09/19 Grazyna Alvarado Rotary DrierQuality Assurance Qa Lab Technician 08/06/23 [facility] 04/24/24 documented as of this encounter
--- OUTSIDE RECORDS SUMMARY | 2024-06-13 16:11 | XMS_ITS | Clinical Summary ---
Demographics Address [address] [place] [address] [address] [facility] [place] [address] Home Phone Home Phone Preferred Language es Marital Status Unknown Presybeterian Affiliation Unknown Race Unknown Ethnic Group Unknown Author Organization [facility] [place], Address [address] [place] [address] [place] [address] Phone Care Team Providers Care Wedding Makeup Artist Name Role Phone Toro Bravo Primary Care [...] 0 Active ergocalciferol (VITAMIN D-2) 1.25 MG (65889 UT) capsule TAKE 1 CAPSULE BY MOUTH [...] Due Date Last Done Comments Pneumococcal Vaccine: 50+ Ye ars (1 of 2 - PCV) 10/14/1982 Colorectal Cancer Screening: Annual FOBT 10/14/2012 Colorectal Cancer Screening: Colonoscopy 10/14/2012 Colorectal Cancer Screening: Sigmoidoscopy 10/14/2012 Diabetes: Hemoglobin A1C 05/09/2019 Diabetes: Pedal Pulse Checked 05/09/2019 Diabetes: Sensory Foot Exam 05/09/2019 Diabetes: Visual Foot Exam 05/09/2019 Diabetes: Ophthalmology Exam 11/20/2020 11/21/2019 Influenza Vaccine (Season Ended) 2024 Hepatitis B Vaccine Aged Out No longe r eligible based on patient's age to complete this topic Insurance [address] [place] [address] Medicaid [place] [address] [place] [address] [address] [place] [id number] Care Teams Wedding Makeup Artist Relationship Specialty Start Date End Date Toro Bravo PCP - General Internal Medicine 09/06/19
--- OUTSIDE RECORDS SUMMARY | 2024-06-13 16:11 | XMS_ITS | Encounter Summary ---
Author Organization [employer] Address [address] [facility] [facility] 7t [place] [address] Care Team Providers Care Advisory Services Associate Name Role Phone Toro Silva MD Primary Care Prov ider Reason for Visit * Reason Comments Med Refill Encounter Details Date Type Department Care Team (Late Contact Info) Description 07/11/2022 Refill [facility] MEDICINE [address] [place] [address] Toro Silva MD 505 [place], [place] [phone] Chronic pain syndrome Social History Tobacco Use [...] Info) Description 07/04/2024 10:30 AM EDT Telemedicine [facility] CHC MED & PEDS 505 [place], [place] [phone] Toro Silva MD 505 [place], [place] [phone] documented as of this encounter Visit Diagnoses Diagnosis Chronic pain syndrome documented in this encounter Additional Health Concerns Assessment Noted Time PHQ-9 Depression Total Score: 0 07/02/19 23 9:45 AM EDT documented as of this encounter Care Teams Advisory Services Associate Relationship Specialty Start Date End Date Toro Silva MD [address] [place] [address] PCP - General Internal Medicine 07/09/19 Grazyna Alvarado Commercial Lines Account ManagerCustomer Pricing Manager 08/06/23 [facility] 04/24/24 documented as of this encounter
--- OUTSIDE RECORDS SUMMARY | 2024-06-13 16:11 | XMS_ITS | Encounter Summary ---
Author Organization [employer] Address [address] 7t [place] [address] Care Team Providers Care Retail Reset Merchandiser Name Role Phone Toro Silva MD Primary Care Prov ider Reason for Visit * Reason Onset Date Comments Hospital Follow-up 04/20/2024 Encounter Details Date Type Department Care Team ([facility] Contact Info) Description 04/20/[address] [facility] CHC MED & PEDS [address] [place], [place] [phone] Toro Silva MD 505 [place] [address] Hospital Follow-up Social History Tobacco Use Types [...] call regarding Prior message. Contact pt at [phone] * Telephone Encounter - Courtney Cortes - 04/20/2024 10:47 AM EDT TC from pt ROAD REPAIRER Tonya returning call to professional healthcare representative regarding HDF. Contact Tonya at [phone] documented in this encounter Plan of Treatment Upcoming Encounters Date Type Department Care Team (Late st Contact Info) Description 07/04/2024 10:[address] [facility] CHC MED & PEDS [address] [place] [address] Toro Silva MD 505 [place] [address] documented as of this encounter Visit Diagnoses Not on filedocumented in this encounter Additional Health Concerns Assessment Noted Time PHQ-9 Depression Total Score: 11 023 9:53 AM EST documented as of this encounter Care Teams Retail Reset Merchandiser Relationship Specialty Start Date End Date Toro Silva MD [address] [place] [address] PCP - General Internal Medicine 07/09/19 Grazyna Alvarado Advertising Assistant ManagerBehavioral Health Consultant 08/06/23 [facility] 04/24/24 documented as of this encounter
--- OUTSIDE RECORDS SUMMARY | 2024-06-13 16:11 | XMS_ITS | Encounter Summary ---
Author Organization [employer] Address [address] 7t [place] [address] Care Team Providers Care Multifocal Button Generator Name Role Phone Toro Silva MD Primary Care Prov ider Encounter Details Date Type Department Care Team (Late st Contact Info) Description 05/22/2023 Orders Only [facility] MEDICINE [address] [place] [address] ProviderHarley MD Social History Tobacco Use Types [...] is your housing situation today? I have ajme blas 11/23/[address] you [...] [facility] MED & PEDS 505 [place] [address] Toro Silva MD 505 [place] [address] documented as of this encounter Procedures Procedure Name Priority Date/Time Associated Diagnosis Comments HM COLONOSCOPY Routine 11/07/2020 6:57 AM EDT documented in this encounter Results * Hm Colonoscopy (11/07/2020 6:57 AM EDT) us Historical Provider HEALTH MAINTENANCE Final Result documented in this encounter Visit Diagnoses Not on filedocumented in this encounter Additional Health Concerns Assessment Noted Time PHQ-9 Depression Total Score: 11 023 9:53 AM EST documented as of this encounter Care Teams Multifocal Button Generator Relationship Specialty Start Date End Date Toro Silva MD 505 [place] [address] PCP - General Internal Medicine 07/09/19 Grazyna Alvarado Temporary Administrative AssistantNozzle Operator 08/06/23 [facility] 04/24/24 documented as of this encounter
--- OUTSIDE RECORDS SUMMARY | 2024-06-13 16:11 | XMS_ITS | Encounter Summary ---
Author Organization [employer] Address [address] 7[address] [place] [address] Care Team Providers Care Safety Companion Name Role Phone Toro Silva MD Primary Care Prov ider Reason for Visit * Reason Onset Date Comments Med Refill 08/12/2022 Encounter Details Date Type Department Care Team ([facility] st Contact Info) Description 08/12/2022 Telephone [facility] CHC MED & PEDS 505 [place], [place] [phone] Toro Silva MD 505 [place] [address] Med Refill Social History Tobacco Use Types [...] Upcoming Encounters Date Type Department Care Team ([facility] st Contact Info) Description 07/04/2024 10:30 AM EDT Telemedicine [facility] MED & PEDS 505 [place] [address] Toro Silva MD [address] [place] [address] documented as of this encounter Visit Diagnoses Not on filedocumented in this encounter Additional Health Concerns Assessment Noted Time PHQ-9 Depression Total Score: 0 07/02/19 23 9:45 AM EDT documented as of this encounter Care Teams Safety Companion Relationship Specialty Start Date End Date Toro Silva MD 505 [place] [address] PCP - General Internal Medicine 07/09/19 Grazyna Alvarado Senior Compensation ConsultantBit Shaver 08/06/23 [facility] 04/24/24 documented as of this encounter
--- OUTSIDE RECORDS SUMMARY | 2024-06-13 16:11 | XMS_ITS | Encounter Summary ---
Author Organization [employer] Address [address] [facility] 7t [place] [address] Care Team Providers Care Warehouse Insulation Worker Name Role Phone Toro Silva MD Primary Care Prov ider Reason for Visit * Reason Onset Date Comments Med Refill 04/13/2022 Encounter Details Date Type Department Care Team ([facility] st Contact Info) Description 04/13/2022 Refill [facility] CHC MED & PEDS 505 [place], [place] [phone] Toro Silva MD 505 [place] [address] Social History Tobacco Use Types Packs/Day Years [...] [employer]Star) 100 UNIT/ML pen Please sent to [facility] - [place], [place] - [address] documented in this encounter Plan of Treatment Upcoming Encounters Date Type Department Care Team (Late st Contact Info) Description 07/04/2024 10:30 AM EDT Telemedicine [facility] CHC MED & PEDS [address] [place] [address] Toro Silva MD 505 [place] [address] documented as of this encounter Visit Diagnoses Not on filedocumented in this encounter Care Teams Warehouse Insulation Worker Relationship Specialty Start Date End Date Toro Silva MD 505 [place] [address] PCP - General Internal Medicine 07/09/19 Grazyna Alvarado Diesel Trailer MechanicProgressive Die Maker 08/06/23 [facility] 04/24/24 documented as of this encounter
--- OUTSIDE RECORDS SUMMARY | 2024-06-13 16:11 | XMS_ITS | Encounter Summary ---
Author Organization [employer] Address [address] [place] [address] Care Team Providers Care Dust Mixer Name Role Phone Toro Silav MD Primary Care Prov ider Reason for Visit * Reason Onset Date Comments Durable Medical Equipment 12/20/2023 Encounter Details Date Type Department Care Team ([facility] st Contact Info) Description 12/20/2023 Telephone [facility] MEDICINE 230 [place], [place] [phone] Toro Silva MD 505 [place] [address] Durable Medical Equipment Social History Tobacco Use [...] Upcoming Encounters Date Type Department Care Team ([facility] st Contact Info) Description 07/04/2024 10:30 AM EDT Telemedicine [facility] MED & PEDS 505 [place] [address] Toro Silva MD [address] [place] [address] documented as of this encounter Visit Diagnoses Not on filedocumented in this encounter Additional Health Concerns Assessment Noted Time PHQ-9 Depression Total Score: 11 023 9:53 AM EST documented as of this encounter Care Teams Dust Mixer Relationship Specialty Start Date End Date Toro Silva MD 505 [place] [address] PCP - General Internal Medicine 07/09/19 Grazyna Alvarado Escrow RepresentativeFire Control Mechanic 08/06/23 [facility] 04/24/24 documented as of this encounter
--- OUTSIDE RECORDS SUMMARY | 2024-06-13 16:11 | XMS_ITS | Encounter Summary ---
Author Organization [employer] Address [address] [facility] 7t [place] [address] Care Team Providers Care Director Summer Sessions Name Role Phone Toro Silva MD Primary Care Prov ider Encounter Details Date Type Department Care Team (Late Contact Info) Description 03/05/2022 Orders Only [facility] MEDICINE 230 [place] [address] Toro Silva MD 505 [place], [place] [phone] Disorder of vision (Primary Dx) Social History [...] Info) Description 07/04/2024 10:30 AM EDT Telemedicine [facility] CHC MED & PEDS 505 [place], [place] [phone] Toro Silva MD 505 [place], [place] [phone] documented as of this encounter Procedures Procedure Name Priority Date/Time Associated Diagnosis Comments HEMATOXYLIN AND EOSIN STAIN Routine 10/21/2022 1:32 PM EDT Disorder of vision GLUCOSE, WHOLE BLOOD Routine 10/21/2022 11:49 AM EDT Disorder of vision documented in this encounter Results * Hematoxylin and Eosin Stain (10/21/2022 1:32 PM EDT) 10/21/2022 1:32 PM EDT 10/21/2022 3:10 PM EDT [facility] - 10/22/2022 2:46 PM EDT ----- ------- Name: Davon Gonzalez ? Age/Sex: 57/M ? : 1965 Unit#: [id number] ?? Attend Dr: Valente Drake MD ?Re10/21/22 ?Status: DEP SDC ? Location: HO.SSS ?Disch: ? ----- ------- SPEC : [id number] ? RECD: 10/21/22-1509 ? STATUS: ??SOUT ? REQ NUM: [id number] ? ARLYN: 10/21/22-1332 ? SUBM DR: Valente [...] ?? [address] ?? [place] [address] ?? [phone] ? CONTINUED ON NEXT PAGE ----- ------- Name: Davon Gonzalez ? Age/Sex: 57/M ? : 1965 Unit#: [id number] ?? Attend Dr: Valente Drake MD ?Re10/21/22 ?Status: DEP SDC ? Location: HO.SSS ?Disch: ? ----- ------- SPEC : [id number] ? RECD: 10/21/22-1870 ? STATUS: ??SOUT ? REQ NUM: [id number] ? ARLYN: 10/21/22-1532 ? SUBM DR: Valente Drake MD ? ENTERED: ??10/21/22-1510 ?SP TYPE: Surgical ? OTHR DR: Toro Silva MD ORDERED: ??HE Stain/6, Gross Micro L4/2 ? Copies To: ??(Continued) ?? Valente Drake MD ?? [address] [facility] ?? [place] [address] ?? [phone] ----- ------- Signed (signature on file) Jennifer Frederick 10/22/22 1446 ? ----- ------- ? END OF REPORT ? us [facility] External Provider LAB BLO OD ORDERABLES Final Result [facility] [address] [place] [address] [phone] * (ABNORMAL) Glucose, Whole Blood (10/21/2022 11:49 AM EDT) Glucose, Whole Blood 143(H) 60 - 115 mg/dL [facility] Comment:METER #: [id number] 7 10/21/2022 11:4 9 AM EDT 10/21/2022 11:52 AM EDT us [facility] External Provider LAB BLO OD ORDERABLES Final Result [facility] [address] [place] [address] [phone] documented in this encounter Visit Diagnoses Diagnosis Disorder of vision- Primary documented in this encounter Care Teams Director Summer Sessions Relationship Specialty Start Date End Date Toro Silva MD [address] [place] [address] PCP - General Internal Medicine 07/09/19 Grazyna Alvarado Remediation TechnicianTosser 08/06/23 [facility] 04/24/24 documented as of this encounter
--- OUTSIDE RECORDS SUMMARY | 2024-06-13 16:11 | XMS_ITS | Encounter Summary ---
Author Organization [employer] Address [address] [place] [address] Care Team Providers Care Scoop Machine Operator Name Role Phone Toro Silva MD Primary Care Prov ider Reason for Visit * Reason Comments Med Refill Encounter Details Date Type Department Care Team ([facility] st Contact Info) Description 09/29/2023 Refill [facility] CHC MED & PEDS 505 [place], [place] [phone] Sophy Rubi MD 505 [place] [address] Neuropathy Social History Tobacco Use Types Packs/Day [...] Upcoming Encounters Date Type Department Care Team ([facility] st Contact Info) Description 07/04/2024 10:30 AM EDT Telemedicine [facility] MED & PEDS [address] [place] [address] Toro Silva MD 505 [place] [address] documented as of this encounter Visit Diagnoses Diagnosis Neuropathy Mononeuritis of unspecified site documented in this encounter Additional Health Concerns Assessment Noted Time PHQ-9 Depression Total Score: 11 023 9:53 AM EST documented as of this encounter Care Teams Scoop Machine Operator Relationship Specialty Start Date End Date Toro Silva MD 505 [place] [address] PCP - General Internal Medicine 07/09/19 Grazyna Alvarado Industrial Organization ManagerSales Branch Manager 08/06/23 [facility] 04/24/24 documented as of this encounter
--- OUTSIDE RECORDS SUMMARY | 2024-06-13 16:11 | XMS_ITS | Encounter Summary ---
Author Organization [employer] Address [address] [facility] 7t [place] [address] Care Team Providers Care Circuit Breaker Mechanic Name Role Phone Toro Silva MD Primary Care Prov ider Reason for Visit * Reason Comments Med Refill Encounter Details Date Type Department Care Team ([facility] Contact Info) Description 03/03/2022 Refill [facility] MED & PEDS 505 [place], [place] [phone] Toro Silva MD 505 [place] [address] Chronic pain syndrome Social History Tobacco Use [...] Upcoming Encounters Date Type Department Care Team ([facility] Contact Info) Description 07/04/2024 10:30 AM EDT Telemedicine [facility] CHC MED & PEDS [address] [place] [address] Toro Silva MD [address] [place] [address] documented as of this encounter Visit Diagnoses Diagnosis Chronic pain syndrome documented in this encounter Care Teams Circuit Breaker Mechanic Relationship Specialty Start Date End Date Toro Silva MD [address] [place] [address] PCP - General Internal Medicine 07/09/19 Grazyna Alvarado Net Software ArchitectEnglish Tutor 08/06/23 [facility] 04/24/24 documented as of this encounter
--- OUTSIDE RECORDS SUMMARY | 2024-06-13 16:11 | XMS_ITS | Encounter Summary ---
Author Organization [facility] [employer] Address [address] 7[address] [place] [address] Care Team Providers Care Continuous Wave Operator Name Role Phone Toro Silva MD Primary Care Prov ider Reason for Visit * Reason Onset Date Comments Medication Question 03/07/2024 Encounter Details Date Type Department Care Team ([facility] st Contact Info) Description 03/07/2024 Telephone [facility] CHC MED & PEDS 505 [place], [place] [phone] Toro Silva MD 505 [place] [address] Medication Question Social History Tobacco Use Types [...] TC from erum regarding below message . Ethylbenzene Oxidizer sent a secure chat to provider . Per Provider hold 2 days prior procedure, restart 1 day after * Telephone Encounter - Courtney Cortes - 03/07/2024 2:17 PM EST Tc from E[facility] at [facility] stating pt is scheduled for colonoscopy on 03/16/24 and [facility] would like a call back to advise on holding off on medication Xarelto 2.5 MG tablet Contact Erum [phone] opt 5 documented in this encounter Plan of Treatment Upcoming Encounters Date Type Department Care Team (Late st Contact Info) Description 07/04/2024 10:30 AM EDT Telemedicine [facility] CHC MED & PEDS [address] [place], [place] [phone] Toro Silva MD 505 [place], [place] [phone] documented as of this encounter Visit Diagnoses Not on filedocumented in this encounter Additional Health Concerns Assessment Noted Time PHQ-9 Depression Total Score: 11 12/11/2 023 9:53 AM EST documented as of this encounter Care Teams Continuous Wave Operator Relationship Specialty Start Date End Date Toro Silva MD [address] [place] [address] PCP - General Internal Medicine 07/09/19 Grazyna Alvarado Sack KeeperThread Cutter Tender 08/06/23 [facility] 04/24/24 documented as of this encounter
--- OUTSIDE RECORDS SUMMARY | 2024-06-13 16:12 | XMS_ITS | Clinical Summary ---
Author Organization [employer] Address [address] [facility] [address] [place] [address] Care Team Providers Care Cyber Engineer Name Role Phone Toro Silva MD [...] 2 tablets by mouth in the morning. Active plecanatide (Trulance) tablet tablet Take 1 [...] mouth in the morning. 90 capsule 2 Active albuterol (2.5 MG/3ML) 0.083% nebulizer solution Take 3 mL by nebulization every 8 (eight) hours. 75 mL 3 023 Active Calcium Antacid Extra Strength 750 MG chewable tablet Chew 750 mg 2 times daily. Active loratadine (Claritin) 10 MG tablet Take [...] MOUTH EVERY MORNING 90 tablet 3 Active empagliflozin (Jardiance) 25 MG Take 1 tablet (25 mg) by mouth Once per day. 90 tablet 3 024 2024 Active TRUEplus Lancets 33G [facility] TEST BLOOD SUGAR FOUR TIMES DAILY 100 each 11 10/04/2 024 Active Alcohol Swabs (Alcohol Prep) 70 % pads USE DIRECTED FOUR TIMES DAILY 100 each 11 024 Active topiramate 50 MG tabletIndications :Chronic migraine w/o aura w/o status migrainosus, not intractable TAKE 1 TABLET BY MOUTH AT BEDTIME 30 tablet 7 024 2024 Active FREESTYLE LITE test stripIndications: Type 2 diabetes mellitus with stage 3b chronic kidney disease, with long-term current use of insulin ([facility]) TEST BLOOD SUGAR FOUR TIMES [...] 3 due to type 2 diabetes mellitus ([facility]) INJECT 35 UNITS SUBCUTANEOUSLY TWICE DAILY 15 mL 2 025 Active Xarelto 2.5 MG tabletIndications :Pulmonary embolism and infarction ([facility]) TAKE 1 TABLET BY MOUTH TWICE DAILY 60 tablet 3 025 Active meloxicam (Mobic) 15 MG tablet Take 1 tablet (15 mg) by mouth Once per day. 30 tablet 11 025 2025 Active allopurinol (Zyloprim) 100 MG tablet Take 1 tablet (100 mg) by mouth Once per day. 30 tablet 11 025 2025 Active gabapentin (Neurontin) 100 MG capsuleIndication s:Neuropathy TAKE 1 CAPSULE BY MOUTH THREE TIMES DAILY IN THE MORNING, EVENING, AND BEDTIME 90 capsule Active predniSONE (Deltasone) 20 MG tabletIndications :Asthma Take 3 tablets (60 mg) by mouth Once per day for 3 days, THEN 2 tablets (40 mg) Once per day for 3 days, THEN 1 tablet (20 mg) Once per day for 2 days, THEN 0.5 tablets (10 mg) Once per day for 2 days. 18 tablet 025 2024 Active gabapentin (Neurontin) 100 MG capsuleIndication s:Neuropathy TAKE 1 CAPSULE BY MOUTH THREE TIMES DAILY IN THE MORNING, EVENING, AND BEDTIME 90 capsule 024 2024 Discontinued predniSONE (Deltasone) 20 MG tablet Take 2 tablets (40 mg) by mouth Once per day for 5 days. 10 tablet 025 2024 oxyCODONE (Roxicodone) 5 MG immediate release tabletIndications :Chronic pain of right knee Take 1 tablet (5 mg) by mouth every 6 (six) hours if needed for severe pain for up to 5 days. 20 tablet 025 2024 Active Problems Problem Noted Date Diagnosed Date Right knee pain 06/03/2024 Assessment & Plan (06/03/2024 9:18 AM EDT): Patient here with c/o acute on chronic right knee pain. Initially seen in the ER at [facility] 04/16/2024 , admitted with c/o septic joint, work up included arthrocentesis, CT of knee and x-rays. Fluid was indicative of gout and imaging only showed a large effusion, pt already referred to Ortho but appointment scheduled until June On today's exam, pt knee has difusse tenderness, NO warmth, NO redness. Decreased ROM due to pain ( Pt on Xarelto ) Nothing to suggest DVT on exam. Plan: Prednisone taper, Oxycodone ( 5 day supply given ). Continue Tylenol 500 mg po q 6 hrs PRN Pt already has appointment with ortho ER precautions discussed with pt, IF no improvement within the next 24-72 hrs instructed to present himself to the nearest ER Iron deficiency anemia 04/07/2023 Assessment & Plan [...] 04/06/2017 Primary hypertension 04/06/2017 Assessment & Plan (06/03/2024 9:20 AM EDT): Elevated likely due to pain Assessment & Plan (01/20/2024 1:05 PM EST): [...] Eye exam pending to be done at [facility] Assessment & Plan (04/07/2023 1:46 PM EST): [...] Encounters Date Type Department Care Team Description 06/03/2024 9:00 AM EDT Office Visit [facility] [address] [place] [phone] Charanjit Olguin MD Chronic pain of right knee (Primary Dx); Primary hypertension 06/02/[address] [facility] [address] [place] [address] Toro Silva MD TP request 05/22/[address] [facility] [address] [place] [address] Toro Silva MD Neuropathy 05/17/[address] [facility] [address] [place] [address] Toro Silva MD Nurse Triage 05/09/2024 11:[address] [facility] [address] [place] [address] Toro Silva MD Chronic pain of right knee (Primary Dx) 05/09/2024 Travel 05/08/2024 Telephone [facility] [address] [place] [address] Toro Silva MD 05/05/[address] [address] Toro Silva MD Nurse Triage 05/03/2024 2:00 PM EDT Office Visit [facility] [address] [place] [address] Chinyere Hodgson MD Effusion of right knee (Primary Dx) 05/03/2024 Travel 05/02/2024 Telephone [facility] [address] [place] [address] oTro Silva MD Nurse Triage 05/01/2024 Telephone [facility] [address] [place] [address] Toro Silva MD 04/28/[address] [address] Toro Silva MD Medication Question 04/24/[address] [address] Toro Silva MD Nurse Triage 04/21/[address] [address] Toro Silva MD 04/21/2024 Population Health Risk Score [facility] () Department [address] [place] [phone] Provider, Population Health Generic 04/20/[address] [address] Toro Silva MD Care Coordination ([facility]) 04/20/2024 Patient Outreach [facility] [address] [place] [address] Toro Silva MD Transition Of Care (Tcm) (HDF- LVM ) 04/20/2024 Telephone [facility] [address] [place] [address] Toro Silva MD Hospital Follow-up 04/19/2024 Patient Outreach [facility] [address] [place] [address] Toro Silva MD Transition Of Care (Tcm) (HDF- Unscheduled LVM) 04/18/2024 Refill [facility] [address] [place] [address] Toro Silva MD Neuropathy 04/16/2024 Orders Only GENERIC EXTERNAL DATA DEPARTMENT Provider, Generic External Data 04/12/2024 Telephone [facility] [address] [place] [address] Toro Silva MD Durable Medical Equipment 04/12/2024 Refill [facility] [address] [place] [address] Toro Silva MD Pulmonary embolism and infarction ([facility]) 04/06/2024 Orders Only GENERIC EXTERNAL DATA DEPARTMENT Provider, Generic External Data 04/03/2024 Refill [facility] [address] [place] [address] Toro Silva MD CKD stage 3 due to type 2 diabetes mellitus ([facility]) 03/20/2024 Refill [facility] [address] [place] [address] Toro Silva MD Neuropathy; Iron deficiency anemia [...] Packs/Day Years Used Date Smoking Tobacco: Never Passive Smoke Exposure: Never Smokeless Tobacco: Never Tobacco Cessation:Counseling Given: [...] Sign Reading Time Taken Comments Blood Pressure 161/95 06/03/2024 8:48 AM EDT no chest pain, palpitations, or SOB. Tension headache, and pt leg is shaking. Pulse 89 06/03/2024 9:14 AM EDT Temperature 36.4 ??C (97.5 ??F) 06/03/2024 8 :48 AM EDT Respiratory Rate 24 06/03/2024 8:48 AM EDT Oxygen Saturation 98% 06/03/2024 8:4 8 AM EDT Inhaled Oxygen Concentration - - Weight 105 kg (232 lb) 05/03/2024 2:10 PM EDT Height 160 cm (5' 3 ) 06/03/2024 8:48 AM EDT Body Mass Index 39.82 05/03/2024 2:10 PM EDT Plan of Treatment Upcoming Encounters Date Type Department Care Team (Late st Contact Info) Description 07/04/2024 10:[address] [facility] [address] [place] [address] Toro Silva MD [address] [place] [address] Health Maintenance Due Date Last Done Comments CT Colonography 1965 FIT DNA/Cologuard 1965 FIT 1965 FOBT 1965 Sigmoidoscopy 1965 Alcohol/Substance Use Screening 1975 Pneumococcal Vaccine: 50+ Years (2 of 2 - PCV) 04/17/2008 04/18/2007, 02/04/2006 Hepatitis B Vaccines (2 of 3 - 19+ 3-dose series) 03/11/2011 02/11/2011 Eye Exam 08/01/2023 07/31/2022, 07/10, 07/31/2022, Additional [...] 03/16/2024 024, 11/29/2023, 05/14/2023, Additional history exists Lipid Panel 12/14/2024 12/15/2023, 04/0 06/2023, 05/11/2022, Additional history exists SDOH Screening 01/09/2025 01/10/2024 Diabetes: Foot Exam 01/19/2025 01/20/2024, 01/20/2024, 01/20/2024, Additional history exists Tobacco Screening 06/03/2025 06/03/2024 DTaP/Tdap/Td Vaccines (2 - Td or Tdap) [...] EDT Narrative 04/16/2024 10:56 PM EDT ? [facility] ?[address] ?[place] [address] ? CT Scan Report ? Signed ? Patient: Carlos,Davon ?MR#: [id number] ? : 1965 ?Acct:[id number] ? Age/Sex: 58 / M ?ADM Date: 03/09/25 ? Loc: HO.ED ? Attending Dr: ? Ordering Physician: Nubia Ordonez ?? Date of Service: 04/16/24 ?? Procedure(s): CT knee RT w IV con ?? Accession Number(s): [id number] ? cc: Toro Silva MD; Nubia Ordonez ? Report Number: ?? [id number]: Total DLP = ??200.00 mGy-cm ? CLINICAL [...] ? DD/ 54 ? TD/TT: 04/16/242254 ? Communications Clerk: ? Procedure Note Jordi Andre - 04/17/[address] [address] [address] Scan Report Signed Patient: Davon GonzalezMR#: [id number] : 1965Acct:[id number] Age/Sex: 58 / MADM Date: 04/16/24 Loc: HO.ED Attending Dr: Ordering Physician: Nubia Ordonez Date of Service: 04/16/24 Procedure(s): CT knee RT w IV con Accession Number(s): [id number] cc: Toro Silva MD; Nubia Ordonez Report Number: [id number]: Total DLP = 200.00 mGy-cm CLINICAL HISTORY: [...] in OV> 04/16/242255 DD/ 54 TD/TT: 04/16/242254 Communications Clerk: [facility] External Provider IMG CT PROCEDURES Edited Result - Final * Type and screen (04/16/2024 10:51 PM EDT) Blood Type AP [facility] Antibody Screen NEGATIVE [facility] 04/16/2024 10:5 1 PM EDT 04/16/2024 10:54 PM EDT Generic External Data Provider LAB BLOOD BANK TE ST ORDERABLES Final Result [facility] [address] [place] [phone] * Cell Count and Differential, Synovial Fluid (04/16/2024 10:41 PM EDT) Source Synovial Fluid right knee [facility] WBC Synovial Fluid 6.521 X10*3/u L [facility] Comment:Body Fluid WBC is a total nucleated cell count.When a differential is performed, the specimen isconcentrated by cytocentrifugation. This sometimes resultsin the number of cells in the differential being greaterthan the actual cell count performed on thenon-concentrated specimen. Synovial Fluid RBC 0.015 X10*6/u L [facility] Comment:The reference interv al(s) and other method performancespecifications are unavailable for this body fluid.Comparison of the result with concentration in the blood,serum, or plasma is recommended. Neutrophils Synovial Fluid 84 % [facility] Lymphocytes Synovial Fluid 3 % [facility] Monocytes Synovial Fluid 13 % [facility] 04/16/2024 10:4 1 PM EDT 04/16/2024 10:46 PM EDT Narrative [facility] - 04/16/2024 11:28 PM EDT [id number] knee Generic External Data Provider LAB BODY FLUIDS A ND STOOLS ORDERABLES Final Result Performing Organization Address [facility]/ZIP Co de Phone Number [facility] [address] [place] [phone] * Lactic Acid (04/16/2024 8:05 PM EDT) Lactic Acid 1.1 0.5 - 2.0 mmol/L [facility] 04/16/2024 8:05 PM EDT 04/16/2024 8:25 PM EDT Generic External Data Provider LAB BLOOD ORDERAB LES Final Result Performing Organization Address [facility]/ZIP Co de Phone Number [facility] [address] [place] [phone] * (ABNORMAL) CBC auto differential (04/16/2024 7:54 PM EDT) White Blood Count 13.1(H) 4.8 - 10.8 X10*3/uL [facility] Red Blood Count 4.34(L) 4.60 - 5.80 X10*6/uL [facility] Hemoglobin 12.6(L) 14.0 - 18.0 g/dl [facility] Hematocrit 37.4(L) 42.0 - 52.0 % [facility] Mean Corpuscular Volume 86.2 80.0 - 98.0 fL [facility] Mean Corpuscular Hemoglobin 29.0 27.0 - 33.0 pg [facility] Mean Corpuscular HGB Conc 33.7 31.0 - 36.0 g/dl [facility] Red Cell Distribution Width 13.4 11.0 - 16.0 % [facility] Platelet Count 266 160 - 400 X10*3/uL [facility] Mean Platelet Volume 10.4 9.4 - 12.4 fL [facility] Neutrophils Percent Auto 74.4(H) 45 - 73 % [facility] Imm Gran Pct Auto 0.4 0.0 - 0.4 % [facility] Lymphocytes Percent Auto 16.4(L) 20 - 40 % [facility] Monocytes Percent Auto 8.3 2 - 11 % [facility] Eosinophils Percent Auto 0.3 0 - 4 % [facility] Basophils Percent Auto 0.2 0 - 2 % [facility] NRBC Pct Auto 0.0 0.0 - 0.2 /100WBC [facility] Neutrophils Absolute Auto 9.7(H) 2.0 - 8.3 x10*3/uL [facility] Imm Gran Abs Auto 0.05(H) 0.00 - 0.03 X10*3/uL [facility] Lymphocytes Absolute Auto 2.2 1.2 - 4.9 X10*3/uL [facility] Monocytes Absolute Auto 1.1 0.1 - 1.2 X10*3/uL [facility] Eosinophils Absolute Auto 0.0 0.0 - 0.4 X10*3/uL [facility] Basophils Absolute Auto 0.0 0.0 - 0.2 X10*3/uL [facility] NRBC Abs Auto 0.000 0.0 - 0.012 X10*3/uL [facility] 04/16/2024 7:54 PM EDT 04/16/2024 7:56 PM EDT us Generic External Data Provider LAB BLOOD ORDERAB LES Final Result Performing Organization Address City/[facility]/ZIP Co de Phone Number [facility] [address] [place] [phone] * (ABNORMAL) Sed Rate by Modified Dominickren (04/16/2024 7:54 PM EDT) Erythrocyte Sedimentation Rate 75(H) 0 - 15 MM/HR [facility] Comment:Patients with polycy themia and many hemoglobin abnormalitiesmay have depressed sed rates whereas patients with anemiamay have elevated sed rates. 04/16/2024 7:54 PM EDT 04/16/2024 7:56 PM EDT us Generic External Data Provider LAB BLOOD ORDERAB LES Final Result Performing Organization Address [facility]/ZIP Co de Phone Number [facility] [address] [place] [phone] * (ABNORMAL) C-reactive Protein (04/16/2024 7:54 PM EDT) C Reactive Protein 9.65(H) < or = 0.50 mg/dL [facility] 04/16/2024 7:54 PM EDT 04/16/2024 7:56 PM EDT us Generic External Data Provider LAB BLOOD ORDERAB LES Final Result Performing Organization Address City/[facility]/ZIP Co de Phone Number [facility] [address] [place] [phone] * (ABNORMAL) Uric acid (04/16/2024 7:54 PM EDT) Uric Acid 9.0(H) 3.4 - 7.0 mg/dL [facility] 04/16/2024 7:54 PM EDT 04/16/2024 7:56 PM EDT Generic External Data Provider LAB BLOOD ORDERAB LES Final Result Performing Organization Address [facility] Co de Phone Number [facility] [address] [place] [phone] * (ABNORMAL) Magnesium (04/16/2024 7:54 PM EDT) Magnesium 1.4(LL) 1.6 - 2.6 mg/dL [facility] Comment:Critical value for t est(s): MAGS Results called to mi back by: Elder ELIAS Person calling: [id number] Date: 04/16/24Time:2015 04/16/2024 7:54 PM EDT 04/16/2024 7:56 PM EDT Generic External Data Provider LAB BLOOD ORDERAB LES Final Result Performing Organization Address [facility] de Phone Number [facility] [address] [place] [phone] * (ABNORMAL) Comprehensive Metabolic Panel (04/16/2024 7:54 PM EDT) Sodium 141 135 - 145 mmol/L [facility] Potassium 4.0 3.3 - 5.1 mmol/L [facility] Chloride 105 96 - 108 mmol/L [facility] Carbon Dioxide 25 22 - 29 mmol/L [facility] Anion Gap 15 12 - 20 [facility] Urea Nitrogen (BUN) 27(H) 9 - 16 mg/dL [facility] Creatinine, Serum 1.67(H) 0.5 - 1.4 mg/dL [facility] Creatinine Clr Calc Pharmacy 50.6 [facility] Comment:eGFR (calculated fro m the MDRD study equation) and eCrCl(calculated from the Cockcroft-Gault equation) are based ondifferent parameters and may not yield comparable results.If eCrCl result is absurd, please check patient'sheight/weight. Estimated Glomerular Filt Rate 42 [facility] Comment:Chronic Kidney Disea se: Estimated GFR < 60 mL/min/1.20x6Jfhffl Kidney Disease: Estimated GFR < 15 mL/min/1.73m2 Glucose 139(H) 60 - 115 mg/dL [facility] Calcium 9.6 8.4 - 10.2 mg/dL [facility] Bilirubin, Total 0.6 0.0 - 1.0 mg/dL [facility] Aspartate Amino Transferase 18 5 - 37 U/L [facility] Alanine Aminotransferase 14 0 - 40 U/L [facility] Total Protein 8.5(H) 6.5 - 8.0 g/dL [facility] Albumin Level 4.2 3.5 - 5.0 g/dL [facility] Alkaline Phosphatase 86 39 - 117 U/L [facility] 04/16/2024 7:54 PM EDT 04/16/2024 7:56 PM EDT us Generic External Data Provider LAB BLOOD ORDERAB LES Final Result Performing Organization Address [facility]/State/[facility] Co de Phone Number [facility] [address] [place] [phone] * XR Knee 4+ Views Right (04/16/2024 7:10 PM EDT) Anatomical Region Laterality Modality Lower Extremities, Knee Right Radiogra phic Imaging 04/16/2024 7:10 PM EDT Narrative 04/16/2024 7:11 PM EDT ? [facility] ?[address] ?[place] [address] ?XRay Report ? Signed ? Patient: Davon Gonzalez ?MR#: [id number] ? : 1965 ?Acct:[id number] ? Age/Sex: 58 / M ?ADM Date: 03/09/25 ? Loc: HO.ED ? Attending Dr: ? Ordering Physician: Eduardo Kiser ?? Date of Service: 04/16/24 ?? Procedure(s): XR knee RT 4V ?? Accession Number(s): [id number] ? cc: Eduardo Kiser; Toro Silva MD ? CLINICAL HISTORY: Right knee pain ? 4 view right knee ? Comparison: X-rays of the right knee from 04/08/2020 ? Findings: ?? No significant change in right knee arthroplasty hardware or adjacent ?? palmar. Yjxptlbc-re-qmnqt effusion present. No new fracture or lucency. ?? Old healed fracture of the proximal fibula diaphysis unchanged with bony ?? bridging and angulation. ?? Vascular calcifications are redemonstrated. ? IMPRESSION: ?? 1. No hardware loosening or significant change of the right knee ?? arthroplasty hardware compared to 04/08/2020. ? 2. Cvythlss-xd-nmcdu effusion present. ? This document has been electronically signed by: Brandin Gatica MD on ?? 04/16/2024 19:10:06 ? Dictated By: ?Brandin Gatica MD ? Signed By: ?<Electronically signed by Brandin Gatica MD in OV> ? 04/16/24 1911 ? DD/ 09 ? TD/TT: 04/16/241909 ? Communications Clerk: ? Procedure Note Jordi Andre - 04/16/2024 [place] [address] XRay Report Signed Patient: Davon GonzalezMR#: [id number] : 1965Acct:[id number] Age/Sex: 58 / MADM Date: 04/16/24 Loc: HO.ED Attending Dr: Ordering Physician: Eduardo Kiser Date of Service: 04/16/24 Procedure(s): XR knee RT 4V Accession Number(s): [id number] cc: Eduardo Kiser; Toro Silva MD CLINICAL HISTORY: Right knee pain 4 view right knee Comparison: X-rays of the right knee from 04/08/2020 Findings: No significant change in right knee arthroplasty hardware or adjacent palmar. Rpirwahw-yr-gceia effusion present. No new fracture or lucency. Old healed fracture of the proximal fibula diaphysis unchanged with bony bridging and angulation. Vascular calcifications are redemonstrated. IMPRESSION: 1. No hardware loosening or significant change of the right knee arthroplasty hardware compared to 04/08/2020. 2. Wgimugpx-zw-owspi effusion present. This document has been electronically signed by: Brandin Gatica MD on 04/16/2024 19:10:06 Dictated By: Brandin Gatica MD Signed By: <Electronically signed by Brandin Gatica MD in OV> 04/16/241910 DD/ 09 TD/TT: 04/16/241909 Communications Clerk: [facility] External Provider IMG XR PROCEDURES Edited Result - Final * Glucose, Whole Blood (04/06/2024 1:24 PM EST) Glucose, Whole Blood 108 60 - 115 mg/dL [facility] Comment:METER #: [id number] Testing performed in the Endocrinology Department [address] , [address], [facility]. 04/06/2024 1:24 PM EST 04/06/2024 1:29 PM EST Generic External Data Provider LAB BLOOD ORDERAB LES Final Result [facility] [address] [place] [address] [phone] * Hematoxylin and Eosin Stain (03/16/2024 10:05 AM EST) 03/16/2024 10:0 5 AM EST 03/16/2024 10:21 AM EST Narrative [facility] - 03/17/2024 3:03 PM EST ----- ------- Name: Davon Gonzalez ? Age/Sex: 58/M ? : 1965 Unit#: [id number] ?? Attend Dr: Valente Drake MD ?Re03/16/24 ?Status: DEP SDC ? Location: HO.SSS ?Disch: ? ----- ------- SPEC : [id number] ?RECD: 03/16/24 ? STATUS: ??SOUT ? REQ NUM: [id number] ? ARLYN: 03/16/24 ? SUBM DR: Valente [...] Copies To: ?? Toro Silva MD ?? [facility] ?? [address] ?? [place] [address] ?? [phone] ?? Valente Drake MD ?? [facility] ?? [address] ?? [place] [address] ?? [phone] ----- ------- Signed (signature on file) Sidney Ruiz MD 03/17/24 8653 ? ----- ------- ? END OF REPORT ? us Generic External Data Provider LAB BLOOD ORDERAB LES Final Result Performing Organization Address [facility]/ZIP Co de Phone Number [facility] [address] [place] [phone] * (ABNORMAL) Glucose, Whole Blood (03/16/2024 9:21 AM EST) Glucose, Whole Blood 142(H) 60 - 115 mg/dL [facility] Comment:METER #: [id number] 03/16/2024 9:21 AM EST 03/16/2024 9:33 AM EST Generic External Data Provider LAB BLOOD ORDERAB LES Final Result Performing Organization Address [facility] Co de Phone Number [facility] [address] [place] [phone] * (ABNORMAL) Hemoglobin A1c (12/15/2023 10:01 AM EST) Hemoglobin A1c 7.4(H) <6.0 % [facility] Comment:Hemoglobin A1C Refer ence Range Adults: 4.8 - 6.0 % Non diabetic: < 6.0 % Goal: < 7.0 %Additional Action Suggested: > 8.0 %Note: Hemoglobin A1c results are invalid for patients with abnormal amounts of HbF. Blood transfusions may impact the HbA1c concentration in the patient sample. Estimated Average Glucose 166 mg/dL [facility] Comment:eAG = Estimated ave rage glucose which is %A1C expressed asaverage glucose, using the formula of the Z9C-WehxcudIabpayj Glucose study (ADAG), Diabetes Care, Vol.31,#8,2007 12/15/2023 10:0 1 AM EST 12/15/2023 11:30 AM EST Generic External Data Provider LAB BLOOD ORDERAB LES Final Result Performing Organization Address [facility] Co de Phone Number [facility] [address] [place] [phone] * (ABNORMAL) Lipid Panel, Standard (12/15/2023 10:01 AM EST) Triglycerides 141 <150 mg/dL [facility] [facility] Comment:Desirable Triglyceri de: less than 150 mg/dLBorderline High Triglyceride 150-199 mg/dLHigh Triglyceride: 200-499 mg/dLVery High Triglyceride: greater than or equal to 5OO mg/dL Cholesterol 106 <200 mg/dL [facility] Comment:Desirable Cholestero l: less than 200 mg/dLBorderline High Cholesterol: 200-239 mg/dLHigh Cholesterol: greater than 239 mg/dL LDL Cholesterol Calculated 45 <100 mg/dL [facility] Comment:Desirable LDL: less than 100 mg/dLNear Optimal/Above Optimal LDL: 110- 129 mg/dLBorderline High LDL: 130-159 mg/dLHigh LDL: 160-189 mg/dLVery High LDL: greater than or equal to 190 mg/dL HDL Cholesterol 33(L) >40 mg/dL [facility] Comment:Desirable HDL: great er than 40 mg/dL Note: This HDL assay may give artificially low results in patients with liver disease. Blood Venous blood specimen / Unknown 12/15/2023 10:01 AM EST 12/15/2023 11:32 AM EST Toro Perez MD LAB BLOOD ORDERABL ES Final Result [facility] [address] [place] [phone] * HIV-1 RNA, Quantitative, Real-Time PCR with Reflex to Genotype (RTI, PI, Integrase) (05/11/2022 9:42 AM EDT) HIV 1 RNA, QN PCR NOT DETECTED copies/mL [facility], HIV 1 RNA, QN PCR NOT DETECTED Log copies/mL [facility], Comment: REFERENCE RANGE: NOT DETECTED copies/mL ?NOT DETECTED ??Log copies/mL This test was performed using Real-Time Polymerase Chain Reaction. Reportable range is 20 to 10,000,000 copies/mL (1.30-7.00 Log copies/mL). 05/11/2022 9:42 AM EDT 05/11/2022 9:43 AM EDT Narrative [facility] - 05/14/2022 12:55 AM EDT FASTING:YES FASTING: YES Result [facility] Toro Perez MD LAB BLOOD ORDERABL ES Final Result Performing Organization Address [facility] Co de Phone Number [facility] [address] [place] [address], [facility] [place] [address] [employer], [address] [place] [address] * Hepatitis C Antibody with Reflex to HCV, RNA, Quantitative, Real-Time PCR (05/11/2022 9:42 AM EDT) Hepatitis C Antibody NON-REACT TAMERA NON-REACT TAMERA [employer] Channelt Index 0.08 <1.00 [employer] Comment: HCV antibody was non-reactive. There is no laboratory evidence of HCV infection. In most cases, no further action is required. However, if recent HCV exposure is suspected, a test for HCV RNA (test code 88722) is suggested. For additional information please refer to http://education.[employer]/faq/SWI44a2 (This link is being provided for informational/ educational purposes only.) Blood Venous blood specimen / Unknown 05/11/2022 9:42 AM EDT 05/11/2022 9:43 AM EDT Narrative [facility] - 05/14/2022 12:55 AM EDT FASTING:YES FASTING: YES Toro Perez MD LAB BLOOD ORDERABL ES Final Result Performing Organization Address [facility] Co de Phone Number [address], [facility] [place] [address] [employer] [place] [employer] [address] [place] [address] * Hm Colonoscopy (11/07/2020 6:57 AM EDT) us Historical Provider HEALTH MAINTENANCE Final Result from Last 3 Months or Most Recently Relevant to Health Maintenance Insurance [facility] C3 Care Teams Cyber Engineer Relationship Specialty Start Date End Date Toro Silva MD [address] [place] [id number] PCP - General Internal Medicine 07/09/19 Grazyna Alvarado Aerial GunnerStage Manager 08/06/23 Wing LOPEZA 04/24/24
== END 2024-06-13 15:28 | disposition home or self-care (01) ==
LOC: HO.HOS 14:59
PROVIDERS: PCP Internal Medicine; Visit Provider Orthopaedic Surgery
DX: M10.061 Idiopathic gout, right knee (principal); M25.561 Pain in right knee; Z96.651 Presence of right artificial knee joint
CPT/HCPCS: 99203

== ENCOUNTER → 2024-06-13 14:58 | Outpatient (BNVA) | payer MEDICAID, SELFPAY | PROVIDERS: PCP Internal Medicine; Visit Provider Orthopaedic Surgery | DX: M25.561 Pain in right knee (principal); M10.9 Gout, unspecified; Z96.651 Presence of right artificial knee joint | CPT/HCPCS: 99202 ==

== ENCOUNTER 2024-08-02 11:51 | Outpatient (AMB) | payer MEDICAID, SELFPAY ==
--- NOTE | 2024-08-02 11:53 | A.OFFVIS_ITS ---
Vital Signs 08/02/24 12:02 Height 5 ft 4 in Weight 210 lb BMI 36.0 BP 128/69 Blood Pressure Location Lt brachial Position Sitting Pulse 112 H Pulse Oximetry (%) 98 Oxygen Delivery Method Room Air Intake Visit Reasons: Post Op r/s 06/09/24, 03/30/24 Intake Note: Patient follow up for post op results/Colonoscopy. Patient denies any GI issues for today. 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: Yes Accompanied by: Daughter Allergies shellfish derived Allergy (Severe, Verified 08/02/24 11:52) SWOLLEN THROAT apple (Apple) Allergy (Intermediate, Verified 08/02/24 11:52) SWELLING egg (Egg) Allergy (Intermediate, Verified 08/02/24 11:52) HIVES influenza virus vaccine, specific (Influenza Virus Vacc,Specific) Allergy (Intermediate, Verified 08/02/24 11:52) SWELLING lisinopril (Lisinopril) Allergy (Intermediate, Verified 08/02/24 11:52) Itching Penicillins Allergy (Mild, Verified 08/02/24 11:52) RASH nifedipine (From Procardia) Allergy (Unknown, Verified 08/02/24 11:52) UNKNOWN HPI HPI Post Op r/s 06/09/24, 03/30/24: Details: Assessment & Plan (1) Chronic idiopathic constipation: Code(s): K59.04 - Chronic idiopathic constipation Category: Medical (2) GERD (gastroesophageal reflux disease): Code(s): K21.9 - Gastro-esophageal reflux disease without esophagitis Category: Medical (3) Tubular adenoma of colon: Comment: 11/2022=TA but poor prep repeat in 1 year Code(s): D12.6 - Benign neoplasm of colon, unspecified Category: Medical Plan [facility] #[id number] Pt has been lost to follow up since 02/2023, at that time I expected a 4 week follow up. He is here today with a female family member who is supportive. He says he has been having some bloating and gas trapping and at times he is not moving his bowels well. This despite taking the LInzess 290mcg and the bisacodyl 2 tabs qhs. He will move his bowels every day, but has incomplete evacuation. The bloating is also a great concern to him. We will increase the bisacodyl to 2qhs and 1 qam with his LInzess 290mcg adn he has simethicone at home. He reminds me that he is due for repeat colonoscopy, the last was 1 year ago and he had large TA's, it appears this was lost in scheduling somehow. I will re order and re send a message. ROV 6 weeks Orders: Orders Colonoscopy - GI Use Only 09/28/23 D12.6 - Benign neoplasm of colon, unspe cified Medications: New peg 3350-electrolytes 236-22.74-6.74 -5.86 gram (Golytely) until fecal effluent is clear; do not exceed a total volume of 2,000 mL 240 mL PO Q10M 4,000 mL 0RF 1 day Z12.11 - Encounter for screening for malignant neoplasm of colon bisacodyl (Dulcolax (bisacodyl)) 10 mg (2 x 5 mg) PO BEDTIME 4 tabs 0RF 2 days Changed From bisacodyl 10 mg (2 x 5 mg) PO BEDTIME 60 tabs 3RF K59.04 - Chronic id iopathic constipation To bisacodyl 15 mg (3 x 5 mg) PO BEDTIME 60 tabs 3RF K59.04 - Chronic idiopathic constipation Refilled simethicone (Gas Relief (simethicone)) 180 mg PO QID 120 caps 6RF linaclotide (Linzess) 290 mcg PO QAM 30 caps 6RF K59.04 - Chronic idiopathic constipation pantoprazole 40 mg PO BID 60 tabs 6RF K21.9 - Gastro-esophageal reflux disease without esophagitis, K29.70 - Gastritis, unspecified, without bleeding Discontinued plecanatide Discontinued Reason: Doctor's Order 3 mg PO DAILY 30 tabs 6RF K59.04 - Chronic idiopathic constipation COLONOSCOPY Findings: Terminal Ileum-not intubated Cecum: 5-8 mm flat polyp lifted with elview injection and removed with cold snare Ascending Colon: normal Transverse Colon -normal Descending Colon:normal Sigmoid Colon: normal Rectum: Retroflexion with small internal hemorrhoids seen, grade I Anorectum - normal Intervention: cold snare and eleview injection Impression and Post Procedure Diagnosis: colon polyp x 1 internal hemorrhoids Plan: High fiber diet leaflet Avoid straining at stool, epsom salts and sitz bath, anusol supps or cream Repeat Colonoscopy in 5 years due to polyp history or earlier if clinically indicated can restart anti coagulation tomorrow BIOPSY Received: 03/16/24 Diagnosis Cecum, polypectomy: Tubular adenoma; negative for high-grade dysplasia or carcinoma TODAY'S VISIT [place] #Yonis Hanson The procedure needs to be repeated in 5 years. The procedure was well tolerated. The results were explained and the patient is agreeable to the follow-up interval as stated. The bowel pattern has returned to normal. Education was provided to tell any 1st degree relatives about their findings to be sure that they are screened by age 45. Educated that they will be put on a recall list when it is time for their repeat scope but should they move out of state or away from the hospital they will need to remember along with their primary to repeat the procedure in a timely fashion to avoid any adverse complications. He is currently on Linzess 290 micro g with bisacodyl 2 at night and 1 in the morning. He also continues on pantoprazole bid and simethione. Getting his bowel moving has helped all of his sx including gas and bloating. ROV 6 mos. [facility] Medical History (Updated 08/02/24 @ 13:37 by HELENE Menchaca) Dysphagia Uncontrolled hypertension Benign skin lesion of cheek Pulmonary embolism Gastritis SUSY (acute kidney injury) Enteritis Epigastric pain Physical deconditioning SOB (shortness of breath) Colon cancer screening Uninodular goiter (nontoxic) Right knee pain Chronic pain Type 2 diabetes mellitus with polyneuropathy Upper abdominal pain H. pylori infection Obesity due to excess calories Blind right eye Goiter Cancer of eye Chronic kidney disease, stage 3 Hemiparesis affecting left side as late effect of cerebrovascular accident CHF (congestive heart failure) History of poliomyelitis GERD (gastroesophageal reflux disease) Morbid obesity Mood disorder Nasal polyps Angina of effort ARTEM (obstructive sleep apnea) Hemiplegia affecting dominant side Asthma Other pulmonary embolism and infarction Left ventricular hypertrophy Syncope Type 2 diabetes mellitus with hyperglycemia, with long-term current use of insulin Hyperlipidemia LDL goal <70 Essential hypertension Surgical History History of total knee arthroplasty Hx of colonoscopy History of excision of lesion (~09/09/23) History of carpal tunnel surgery History of right knee joint replacement History of esophagogastroduodenoscopy (EGD) History of cardiac catheterization Hx of knee surgery History of coronary artery stent placement Family History Father Stroke Brain cancer CVD (cardiovascular disease) Diabetes Mother Diabetes Social History Household Members: Other 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 Housing: Apartment Are you a primary primary care sales representative to a significant other at home: No Do you presently have visiting nurse or other home services: Yes (BUSINESS CONTINUITY SPECIALIST) Alcohol intake: never Patient Tobacco Use Status: Never used Tobacco Advance Directives Date on File: 11/08/20 service: No Review of Systems Const Denies fatigue, Denies fever(s), Denies night sweats, Denies poor appetite and Denies weight loss ENT Reports Normal hearing present, Denies dental pain, Denies dysphagia, Denies hearing loss, Denies mouth pain, Denies odynophagia, Denies throat swelling, Denies tongue swelling and Reports other (Dentition adequate) Card Reports no additional complaints Resp Reports no additional complaints GI Details: Denies abdominal pain, Denies melena, Denies bloating, Denies hematochezia, Reports constipation, Denies GI cramping, Denies dysphagia, Denies excessive flatus, Denies early satiety, Reports heartburn, Denies diarrhea, Denies nausea, Denies odynophagia, Denies vomiting and Denies hematemesis Musc Reports abnormal gait Skin/Breast Denies pruritus, Denies lesions, Denies rash and Denies jaundice Neuro Reports Normal hearing present, Denies Abnormal speech present and Reports abnormal gait Endo Denies fatigue Aller/Immun Denies throat swelling and Denies tongue swelling Physical Exam Vital Signs: Last Vital Signs Pulse 112 H 08/02/24 12:02 BP 128/69 08/02/24 12:02 Pulse Ox 98 08/02/24 12:02 Oxygen Delivery Method Room Air 08/02/24 12:02 BMI result Body Mass Index 36.0 Const General: cooperative, no acute distress, well developed and well groomed Nutritional Appearance: well nourished and obese centrally obese Orientation/consciousness: oriented to person, oriented to place and oriented to time Limitations: language barrier and crutches (loftstrand) HEENT Head: Yes normocephalic and Yes atraumatic Eyes General: appearance normal, both eyes and all related structures Pupils: Equal, round and reactive pupils present Neck Neck: Yes normal visual inspection and Yes no lymphadenopathy Thyroid: Thyroid normal Resp Effort & Inspection: normal respiratory effort and able to speak in complete sentences Auscultation: clear to auscultation bilaterally Cardio Rate: regular rate Rhythm: regular rhythm Heart sounds: Normal, physiologic split S2 sound present Peripheral pulses: radial pulses present and posterior tibial pulses present GI Inspection: No distended, No Abdominal panniculus present and Yes obesity Palpation (GI): Soft to palpation, nontender, no guarding, not rigid and No hepatosplenomegaly present Percussion: Yes normal to percussion Auscultation: normal bowel sounds Rectal Exam - Male: Yes deferred Skin General skin exam: no rashes or lesions noted, turgor normal, skin not dry, no jaundice, No spider nevi and no striae Rashes: no rashes Nails: normal Neuro General: oriented to person, oriented to place and oriented to time Cranial nerves: Yes Equal, round and reactive pupils present and Yes Normal hearing present Speech: No Abnormal speech present Extrem General: Yes normal to inspection, No clubbing, No cyanosis and No edema Psych Appearance: grossly normal and well kempt Mental Status: mental status grossly normal Speech and movement: Normal speech and movement present Affect: normal affect Attitude: cooperative Thought process: Normal thought process present and not confabulating Thought content: Normal thought content present Insight: Fair insight present (Psych) Judgement: Fair judgement present (Psych) Assessment & Plan Assessment & Plan (1) Tubular adenoma of colon: Comment: 06/2024= TA REPEAT IN 5 YEARS; 11/2022=TA but poor prep repeat in 1 year Code(s): D12.6 - Benign neoplasm of colon, unspecified Category: Medical (2) GERD (gastroesophageal reflux disease): Code(s): K21.9 - Gastro-esophageal reflux disease without esophagitis Category: Medical (3) Chronic idiopathic constipation: Code(s): K59.04 - Chronic idiopathic constipation Category: Medical Plan [place] #Yonis Live The procedure needs to be repeated in 5 years. The procedure was well tolerated. The results were explained and the patient is agreeable to the follow-up interval as stated. The bowel pattern has returned to normal. Education was provided to tell any 1st degree relatives about their findings to be sure that they are screened by age 45. Educated that they will be put on a recall list when it is time for their repeat scope but should they move out of state or away from the hospital they will need to remember along with their primary to repeat the procedure in a timely fashion to avoid any adverse complications. He is currently on Linzess 290 micro g with bisacodyl 2 at night and 1 in the morning. He also continues on pantoprazole bid and simethione. Getting his bowel moving has helped all of his sx including gas and bloating. ROV 6 mos. Medications: Changed From pantoprazole 40 mg PO BID@0630,1630 K21.9 - Gastro-esophageal reflux disease without esophagitis To pantoprazole 40 mg PO BID@0630,1630 60 tabs 6RF 30 days K21.9 - Gastro- esophageal reflux disease without esophagitis Refilled linaclotide (Linzess) 290 mcg PO QAM 30 caps 6RF simethicone (Gas Relief (simethicone)) 180 mg PO QID 120 ea 6RF Discontinued famotidine Discontinued Reason: Doctor's Order 20 mg PO QAM 30 tabs 2RF Coding Level of Care Code Est Pt Level 3 (14001) Diagnoses Tubular adenoma of colon D12.6 GERD (gastroesophageal reflux disease) K21.9 Chronic idiopathic constipation K59.04
[2024-08-02 12:02] VITALS: BP 128/69; PULSE 112; O2SAT 98; BMI 36.0
--- OUTSIDE RECORDS SUMMARY | 2024-08-02 14:05 | XMS_ITS | Encounter Summary ---
Author Organization [employer] Address [address] [facility] [address] [place] [address] Care Team Providers Care Pig Iron Loader Name Role Phone Toro Silva MD Primary Care Prov ider Reason for Visit * Reason Onset Date Comments c/b request 2022 Encounter Details Date Type Department Care Team ([facility] st Contact Info) Description 2022 Telephone [facility] [address] [place], [place] [phone] Toro Silva MD [address] [place] [address] c/b request Social History Tobacco Use Types [...] for a call back. TC placed to [facility] Gastro no answer left a message for Joan on voice mail gave [facility] direct number for a call back TC placed to pt for a third time and another message was left for him to contact the [facility] nurses. Several messages also left at Gastro office with no call back will send to PCP as FYI. * Telephone Encounter - Carolyn Cha RN - 10/19/2022 11:24 AM EDT Tc from [place] with [facility] requesting a call in regards to pt upcoming colonoscopy appointment on 10/21 Please contact joan at [phone] TC returned to [place] and a message was left for a [...] for a call back. TC placed to [facility] Gastro no answer left a message for Joan on voice mail gave [facility] direct number for a call back * Telephone Encounter - Gianna Antonio - 2022 10:37 AM EDT Tc from [place] with [facility] requesting a call in regards to pt upcoming colonoscopy appointment on 10/21 Please contact joan at [phone] documented in this encounter Plan of Treatment Not on file documented as of this encounter Visit Diagnoses Not on filedocumented in this encounter Additional Health Concerns Assessment Noted Time PHQ-9 Depression Total Score: 0 07/02/19 9:45 AM EDT documented as of this encounter Care Teams Pig Iron Loader Relationship Specialty Start Date End Date Toro Silva MD [address] [place] [id number] PCP - General Internal Medicine 07/09/19 Grazyna Alvarado Customs Port DirectorNuclear Worker Technician 08/06/23 Wing RIZVI 04/24/24 documented as of this encounter
== END 2024-08-02 12:31 | disposition home or self-care (01) ==
LOC: HO.HGI 11:52
PROVIDERS: PCP Internal Medicine; Visit Provider Nurse Practitioner
DX: D12.6 Benign neoplasm of colon, unspecified (principal); K21.9 Gastro-esophageal reflux disease without esophagitis; K59.04 Chronic idiopathic constipation
CPT/HCPCS: 99213

== ENCOUNTER → 2024-08-02 11:51 | Outpatient (BNVA) | payer MEDICAID, SELFPAY | PROVIDERS: PCP Internal Medicine; Visit Provider Nurse Practitioner | DX: K21.9 Gastro-esophageal reflux disease without esophagitis (principal); D12.6 Benign neoplasm of colon, unspecified; K59.04 Chronic idiopathic constipation | CPT/HCPCS: 99212 ==

== ENCOUNTER 2024-08-08 08:48 | Outpatient (AMB) | payer MEDICAID, SELFPAY ==
--- NOTE | 2024-08-08 08:55 | A.OFFVIS_ITS ---
Intake Intake Visit Reasons: 60 min Allergies shellfish derived Allergy (Severe, Verified 08/02/24 11:52) SWOLLEN THROAT apple (Apple) Allergy (Intermediate, Verified 08/02/24 11:52) SWELLING egg (Egg) Allergy (Intermediate, Verified 08/02/24 11:52) HIVES influenza virus vaccine, specific (Influenza Virus Vacc,Specific) Allergy (Intermediate, Verified 08/02/24 11:52) SWELLING lisinopril (Lisinopril) Allergy (Intermediate, Verified 08/02/24 11:52) Itching Penicillins Allergy (Mild, Verified 08/02/24 11:52) RASH nifedipine (From Procardia) Allergy (Unknown, Verified 08/02/24 11:52) UNKNOWN HPI Comprehensive Diabetes Asmnt Most Recent Diabetes Results: 2 Hemoglobin A1c 13.9 % 02/20/19 Microalb/Creat Ratio TNP ug/mg cr 02/20/19 Cholesterol, (<200) 106 mg/dL 12/15/23 HDL Cholesterol, (>40) 33 mg/dL L 12/15/23 Triglycerides, (<150) 141 mg/dL 12/15/23 Creatinine, (0.5-1.4) 1.46 mg/dL H 04/17/24 BUN, (9-16) 25 mg/dL H 04/17/24 Sodium, (135-145) 138 mmol/L 04/17/24 Potassium, (3.3-5.1) 4.1 mmol/L 04/17/24 Chloride, (96-108) 109 mmol/L H 04/17/24 Carbon Dioxide, (22-29) 20 mmol/L L 04/17/24 Calcium, (8.4-10.2) 8.5 mg/dL Δ 04/17/24 AST, (5-37) 38 U/L H 04/17/24 ALT, (0-40) 28 U/L 04/17/24 Total Protein, (6.5-8.0) 7.1 g/dL 04/17/24 Albumin, (3.5-5.0) 3.6 g/dL 04/17/24 [facility] Medical History (Updated 08/02/24 @ 13:37 by HELENE Menchaca) Dysphagia Uncontrolled hypertension Benign skin lesion of cheek Pulmonary embolism Gastritis SUSY (acute kidney injury) Enteritis Epigastric pain Physical deconditioning SOB (shortness of breath) Colon cancer screening Uninodular goiter (nontoxic) Right knee pain Chronic pain Type 2 diabetes mellitus with polyneuropathy Upper abdominal pain H. pylori infection Obesity due to excess calories Blind right eye Goiter Cancer of eye Chronic kidney disease, stage 3 Hemiparesis affecting left side as late effect of cerebrovascular accident CHF (congestive heart failure) History of poliomyelitis GERD (gastroesophageal reflux disease) Morbid obesity Mood disorder Nasal polyps Angina of effort ARTEM (obstructive sleep apnea) Hemiplegia affecting dominant side Asthma Other pulmonary embolism and infarction Left ventricular hypertrophy Syncope Type 2 diabetes mellitus with hyperglycemia, with long-term current use of insulin Hyperlipidemia LDL goal <70 Essential hypertension Surgical History History of total knee arthroplasty Hx of colonoscopy History of excision of lesion (~09/09/23) History of carpal tunnel surgery History of right knee joint replacement History of esophagogastroduodenoscopy (EGD) History of cardiac catheterization Hx of knee surgery History of coronary artery stent placement Family History Father Stroke Brain cancer CVD (cardiovascular disease) Diabetes Mother Diabetes Social History Household Members: Other 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 Housing: Apartment Are you a primary respiratory care instructor to a significant other at home: No Do you presently have visiting nurse or other home services: Yes (ASSEMBLER FOR PULLER OVER MACHINE) Alcohol intake: never Patient Tobacco Use Status: Never used Tobacco Advance Directives Date on File: 11/08/20 service: No Assessment & Plan Assessment & Plan (1) Type 2 diabetes mellitus with hyperglycemia, with long-term current use of insulin: Code(s): E11.65 - Type 2 diabetes mellitus with hyperglycemia; 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 Patient questions/concerns, patient's glucose is well controlled. He missed last appointment with Dr. Jackie Mendoza and is due for his A1c. Patient agreed to make follow-up appointment with Dr. Moseley's The patient met all learning objectives and was able to verbalize understanding and provide teach back of education topics discussed . The patient was provided with the opportunity to ask questions and all questions were answered. Topics covered in today?s session included: Medications (If applicable) * Name of medication? * Dosing/administration instructions? * Mechanism of action? * Potential side effects? * Potential adverse reaction and appropriate treatment? * Review onset, peak, duration Assess for concerns re: insurance coverage, cost, barriers to compliance Insulin/Injectables (If applicable) * Storage/care of insulin?? * Injection sites? * Site rotation? * Onset, peak, duration * Drawing up insulin? * Injecting insulin/other injectables? * Sharps disposal Continuous blood glucose monitoring (if applicable) Hypoglycemia and Hyperglycemia * Signs and symptoms? * Causes?? * Treatment? * Preventing hypoglycemia? * When to seek medical attention Target Goals: * Blood glucose targets and how you feel when your blood glucose is in and out of your target ranges. * Monitoring and knowing your A1C. * What can make blood glucose go up and down and preventing high and low blood glucose. * Review of blood sugar targets in expected goal range and outside of expected goal range. * Problem solving and preventing hyper/hypoglycemia. * Sick day management of diabetes. * Using blood sugar results in decision making process in managing diabetes. ?Patient was receptive to information provided and participated in the discussion. Asked?appropriate questions and demonstrated good understanding of the topics discussed.? ? Educational Materials: The patient was provided with the following written educational materials: Target Goal handout Smart Goal Assessment:? Patient will identify food in current meal plan that contain carbohydrates before next visit Pt met goal 100% New Smart Goal: Make follow-up appointment with Dr. Mendoza Patient Response to instructions: Comprehension of Instructions: good Readiness to make changes:? action How confident they feel about making changes: Positive Portions of this note were created using voice recognition software, please excuse any words or phrases that may have been misinterpreted. Coding Level of Care Code Est Pt Level 1 (88228) Diagnoses Type 2 diabetes mellitus with hyperglycemia, with long-term current use of insulin E11.65; Z79.4
--- OUTSIDE RECORDS SUMMARY | 2024-08-08 09:04 | XMS_ITS | Clinical Summary ---
Demographics Address [address] [place] [address] [address] [place] [address] Home Phone Home Phone Preferred Language es Marital Status Unknown Jehovah'S Witness Affiliation Unknown Race Unknown Ethnic Group Unknown Author Organization [facility], Address [address] [place] [address] [place] [address] Phone Care Team Providers Care Health And Safety Manager Name Role Phone Toro Bravo Primary Care [...] 0 Active ergocalciferol (VITAMIN D-2) 1.25 MG (38286 UT) capsule TAKE 1 CAPSULE BY MOUTH [...] to complete this topic Insurance [address] [place] [address] Medicaid [place] [address] [place] [address] [address] [place] [id number] Care Teams Health And Safety Manager Relationship Specialty Start Date End Date Toro Bravo PCP - General Internal Medicine 09/06/19
== END 2024-08-08 09:46 | disposition home or self-care (01) ==
LOC: HO.ENCR 08:49
PROVIDERS: PCP Internal Medicine; Visit Provider Registered Nurse Diabetes Educator
DX: E11.65 Type 2 diabetes mellitus with hyperglycemia (principal); Z79.4 Long term (current) use of insulin

== ENCOUNTER → 2024-08-08 08:48 | Outpatient (BNVA) | payer MEDICAID, SELFPAY | PROVIDERS: PCP Internal Medicine; Visit Provider Registered Nurse Diabetes Educator | DX: E11.65 Type 2 diabetes mellitus with hyperglycemia (principal); Z79.4 Long term (current) use of insulin | CPT/HCPCS: 99211 ==

== ENCOUNTER 2024-11-15 14:09 | Outpatient (AMB) | payer MEDICAID, SELFPAY ==
--- NOTE | 2024-11-15 14:10 | MHC.OFFVIS ---
Vital Signs 11/15/24 14:12 Height 5 ft 4 in Weight 227 lb 1.218 oz BMI 39.0 BP 120/72 Blood Pressure Location Lt brachial Position Sitting Pulse 87 Pulse Source Pulse Oximeter Pulse Oximetry (%) 97 Oxygen Delivery Method Room Air Intake Visit Reasons: T2DM Intake Note: Patient presents today for a follow-up on Type 2 Diabetes Mellitus: Last Diabetic eye exam was on: Did not have one. Patient's primary care was supposed to make a referral to the eye doctor. Last Podiatry exam was on: Patient does not see a Speech Therapist Most recent HbA1c: DUE? Random Glucose: 101 [employer] Advanced Operator Maintainer Name: Willi [id number] Information Interpreted: clinical only Accompanied by: JUMP ROLL OPERATOR Allergies shellfish derived Allergy (Severe, Verified 11/15/24 14:20) SWOLLEN THROAT apple (Apple) Allergy (Intermediate, Verified 11/15/24 14:20) SWELLING egg (Egg) Allergy (Intermediate, Verified 11/15/24 14:20) HIVES influenza virus vaccine, specific (Influenza Virus Vacc,Specific) Allergy (Intermediate, Verified 11/15/24 14:20) SWELLING lisinopril (Lisinopril) Allergy (Intermediate, Verified 11/15/24 14:20) Itching Penicillins Allergy (Mild, Verified 11/15/24 14:20) RASH nifedipine (From Procardia) Allergy (Unknown, Verified 11/15/24 14:20) UNKNOWN HPI Comments Details: This is a 58-year-old male presenting for thyroid nodule and for type 2 diabetes. Medical history: Hyperlipidemia, h/o CVA HHC: Current medications: Trulicity 4.5mg weekly Lantus 35 units BID Jardiance 25mg daily A1C today is 7.0% from 6.9% CGM reviewed 14 day-TGT-82% high 18% 0% low. Trell 3 On atorvastatin 80 mg daily, Repatha Denies neuropathy Request [place] referral for eye exam ROS CONSTITUTIONAL: Denies weight loss, fever and chills. HEENT: Denies changes in vision and hearing. RESPIRATORY: Denies SOB and cough. CV: Denies palpitations and CP GI: Denies abdominal pain, nausea, vomiting and diarrhea. : Denies dysuria and urinary frequency. MSK: Denies new myalgia and joint pain. SKIN: Denies rash and pruritus. NEUROLOGICAL: Denies headache PSYCHIATRIC: Denies recent changes in mood. PHYSICAL EXAM: GENERAL: Alert and oriented x 3. NAD EYES: EOMI. Anicteric. HENT: Moist mucous membranes. LUNGS: Clear to auscultation bilaterally. CARDIOVASCULAR: Regular rate and rhythm. ABDOMEN: Soft, non-tender +bs EXTREMITIES: No edema. SKIN: No rashes or lesions. Warm. NEUROLOGIC: No new focal neurological deficits PSYCHIATRIC: Cooperative. Appropriate mood and affect [facility] Medical History Dysphagia Uncontrolled hypertension Benign skin lesion of cheek Pulmonary embolism Gastritis SUSY (acute kidney injury) Enteritis Epigastric pain Physical deconditioning SOB (shortness of breath) Colon cancer screening Uninodular goiter (nontoxic) Right knee pain Chronic pain Type 2 diabetes mellitus with polyneuropathy Upper abdominal pain H. pylori infection Obesity due to excess calories Blind right eye Goiter Cancer of eye Chronic kidney disease, stage 3 Hemiparesis affecting left side as late effect of cerebrovascular accident CHF (congestive heart failure) History of poliomyelitis GERD (gastroesophageal reflux disease) Morbid obesity Mood disorder Nasal polyps Angina of effort ARTEM (obstructive sleep apnea) Hemiplegia affecting dominant side Asthma Other pulmonary embolism and infarction Left ventricular hypertrophy Syncope Type 2 diabetes mellitus with hyperglycemia, with long-term current use of insulin Hyperlipidemia LDL goal <70 Essential hypertension Surgical History History of total knee arthroplasty Hx of colonoscopy History of excision of lesion (~09/09/23) History of carpal tunnel surgery History of right knee joint replacement History of esophagogastroduodenoscopy (EGD) History of cardiac catheterization Hx of knee surgery History of coronary artery stent placement Family History Father Stroke Brain cancer CVD (cardiovascular disease) Diabetes Mother Diabetes Social History Household Members: Other Household Members Other:: JUMP ROLL OPERATOR Housing: Apartment Are you a primary post anesthesia care unit nurse to a significant other at home: No Do you presently have visiting nurse or other home services: Yes (JUMP ROLL OPERATOR) Alcohol intake: never Patient Tobacco Use Status: Never used Tobacco Advance Directives Date on File: 11/08/20 service: No Physical Exam Vital Signs: Last Vital Signs Pulse 87 11/15/24 14:12 BP 120/72 11/15/24 14:12 Pulse Ox 97 11/15/24 14:12 Oxygen Delivery Method Room Air 11/15/24 14:12 BMI result Body Mass Index 39.0 Results AMB Hemoglobin A1c AMB Hemoglobin A1c 7.0 % Last Edit by Divya Myrick CMA on 11/15/24 14:43 Results Reviewed Results Reviewed: Laboratory Last Values Glucose (Clinic) 101 mg/dL (60-115) 11/15/24 14:32 Assessment & Plan Assessment & Plan (1) Type 2 diabetes mellitus with hyperglycemia, with long-term current use of insulin: Code(s): E11.65 - Type 2 diabetes mellitus with hyperglycemia; Z79.4 - ferry terminal agent (current) use of insulin Category: Medical Plan 59 year old for diabetic follow up Diabetes is controlled on current regimen Sensors refilled. Discussed need for eye reevaluation-referral placed Hypoglycemia by rules of 15s Return in 6 months. PCP appt in Jan Orders: Orders AMB Hemoglobin A1c Today E11.65 - Type 2 diabetes mellitus with hyperglycemia, Z79.4 - halfway (current) use of insulin Referrals Ophthalmology Referral E11.65 - Type 2 diabetes mellitus with hyperglycemia, Z79.4 - ferry terminal agent (current) use of insulin Medications: New FreeStyle Trell 3 Plus Sensor (blood-glucose sensor) every 15 days 6 ea 3RF NS E11.65 - Type 2 diabetes mellitus with hyperglycemia, Z79.4 - halfway (current) use of insulin Coding Level of Care Code Est Pt Level 4 (27486) Diagnoses Type 2 diabetes mellitus with hyperglycemia, with long-term current use of insulin E11.65; Z79.4
[2024-11-15 14:12] VITALS: BP 120/72; PULSE 87; O2SAT 97; BMI 39.0
[2024-11-15 14:37] LABS: Glucose, Whole Blood 101 mg/dL (60-115)
== END 2024-11-15 14:54 | disposition home or self-care (01) ==
LOC: HO.ENCR 14:10
PROVIDERS: PCP Internal Medicine; Visit Provider Internal Medicine
DX: E11.65 Type 2 diabetes mellitus with hyperglycemia (principal); Z79.4 Long term (current) use of insulin

== ENCOUNTER → 2024-11-15 14:09 | Outpatient (BNVA) | payer MEDICAID, SELFPAY | PROVIDERS: PCP Internal Medicine; Visit Provider Internal Medicine | DX: E11.65 Type 2 diabetes mellitus with hyperglycemia (principal); Z79.4 Long term (current) use of insulin | CPT/HCPCS: 82947; 83036; 99212 ==

== ENCOUNTER 2024-11-23 14:50 | Outpatient (REF) | payer MEDICAID, SELFPAY ==
--- NOTE | 2024-11-23 | PFT_ITS ---
Flows: FEV1: 88 % of predicted at 2.56 L FVC: 89 % of predicted at 3.31 L FEV1/FVC: 77 % Bronchodilator response: Absent Volumes: Total lung capacity: 88 % of predicted at 5.15 L Residual volume: 100 % of predicted at 1.84 L Slow vital capacity: 81 % of predicted at 3.31 L Expiratory reserve volume: 20 % of predicted at 0.20 L Diffusion capacity: Normal Impression: No obstructive or restrictive ventilatory defect. No bronchodilator response. Decreased expiratory reserve volume suggests extrathoracic restriction likely secondary to abdominal obesity. MTDD
[2024-11-23 15:33] VITALS: PULSE 100; O2SAT 99
--- OUTSIDE RECORDS SUMMARY | 2024-11-23 18:41 | XMS_ITS | Encounter Summary ---
Demographics Address [address] [place] [address] Mobile Phone Home Phone Work Phone Preferred Language Chinese; Castilian Marital Status Restoration Affiliation Unknown Race Other Race Ethnic Group or Author Organization [facility] Address [address] [place] [address] Phone Care Team Providers Care Financial Accounting Analyst Name Role Phone Christina Nelson MD Primary Care Provider [phone] Toro Silva MD Primary Care Prov ider [facility] Primary Care Provider Encounter Details Date Type Department Care Team (Late st Contact Info) Description 06/22/2019 Procedure Pass [facility] Imaging - MRI, [facility] [address] [place] [address] Social History Tobacco Use Types Packs/Day Years Used Date Smoking Tobacco: Never Smokeless Tobacco: Never Alcohol Use Standard Drinks/Week Comments Never 0 (1 standard drink = 0.6 oz pur e alcohol) Sex and Gender Information Value Date Recorded Sex Assigned at Not on file Legal Sex Male 5:03 PM EST Gender Identity Not on file Sexual Orientation Not on file documented as of this encounter Functional Status documented as of this encounter Plan of Treatment Not on file documented as of this encounter Visit Diagnoses Not on filedocumented in this encounter Care Teams Financial Accounting Analyst Relationship Specialty Start Date End Date Christina Nelson MD [address] [facility] [facility] [address] [place] [address] PCP - General Family Medicine 02/03/19 09/17/20 Toro Silva MD [address] [place] [address] PCP - General Internal Medicine 09/18/20 [facility] [address] [place] [address] PCP - General 03/05/21 documented as of this encounter Additional Source Comments The information contained in this document represents components of the legal health record. It is not the complete legal health record.[facility]
--- OUTSIDE RECORDS SUMMARY | 2024-11-23 18:41 | XMS_ITS | Encounter Summary ---
Demographics Address [address] [place] [address] Mobile Phone Home Phone Work Phone Preferred Language Turkish; Castilian Marital Status Methodist Affiliation Unknown Race Other Race Ethnic Group or Author Organization [facility] Address [address] [place] [address] Phone Care Team Providers Care Director Emergency Services Name Role Phone Christina Nelson MD Primary Care Provider [phone] Toro Silva MD Primary Care Prov ider [facility] Primary Care Provider Encounter Details Date Type Department Care Team (Late st Contact Info) Description 07/12/2019 Procedure Pass M[facility]A Imaging - [facility] [address] [place] [address] Social History Tobacco Use Types Packs/Day Years [...] on file documented as of this encounter Plan of Treatment Not on file documented as of this encounter Visit Diagnoses Not on filedocumented in this encounter Care Teams Director Emergency Services Relationship Specialty Start Date End Date Christina Nelson MD [address] [place] [address] PCP - General Family Medicine 02/03/19 09/17/20 Toro Silva MD [address] [place] [address] PCP - General Internal Medicine 09/18/20 03/04/21 [facility] [address] [place] [address] PCP - General 03/05/21 documented as of this encounter Additional Source Comments The information contained in this document represents components of the legal health record. It is not the complete legal health record.[facility]
--- OUTSIDE RECORDS SUMMARY | 2024-11-23 18:41 | XMS_ITS | Encounter Summary ---
Author Organization [employer] Address [address] [place] [address] Care Team Providers Care Sr. Manager Name Role Phone Toro Silva MD Primary Care Prov ider Name, Oz CARLTON Primary Care Provider [phone] Reason for Visit * Reason Comments Med Refill Encounter Details Date Type Department Care Team ([facility] st Contact Info) Description 02/22/2024 Refill [facility] MEDICINE [address] [place], [place] [phone] Toro Silva MD [address] [place] [address] [phone] Primary hypertension Social History Tobacco Use Types [...] Care Team (Late st Contact Info) Description 01/25/2025 11:15 AM EST Office Visit [facility] MEDICINE [address] [place] [address] Oz Willard MD [address] [place] [phone] documented as of this encounter Visit Diagnoses Diagnosis Primary hypertension Unspecified essential hypertension documented in this encounter Additional Health Concerns Assessment Noted Time PHQ-9 Depression Total Score: 11 023 9:53 AM EST documented as of this encounter Care Teams Sr. Manager Relationship Specialty Start Date End Date Toro Silva MD [address] [place] [address] PCP - General Internal Medicine 07/09/19 10/30/24 Oz Willard MD [address] [place] [address] PCP - General Internal Medicine 10/31/24 Grazyna Alvarado RespoolerOrigination Specialist 08/06/23 [facility] 04/24/24 documented as of this encounter
--- OUTSIDE RECORDS SUMMARY | 2024-11-23 18:41 | XMS_ITS | Encounter Summary ---
Author Organization [employer] [facility] Address [address] [place] [address] Care Team Providers Care Welder Repair Name Role Phone Toro Silva MD Primary Care Prov ider Oz Willard MD Primary Care Provider [phone] Reason for Visit * Reason Comments Med Refill Encounter Details Date Type Department Care Team ([facility] Contact Info) Description 03/03/2022 Refill [facility] MED & PEDS [address] [place], [place] [phone] Toro Silva MD [address] [place], [place] [phone] Chronic pain syndrome Social History Tobacco Use [...] Upcoming Encounters Date Type Department Care Team ([facility] Contact Info) Description 01/25/2025 11:15 AM EST Office Visit [facility] MEDICINE [address] [place], [place] [phone] Oz Willard MD [address] [place] [address] documented as of this encounter Visit Diagnoses Diagnosis Chronic pain syndrome documented in this encounter Care Teams Welder Repair Relationship Specialty Start Date End Date Toro Silva MD [address] [place] [address] PCP - General Internal Medicine 07/09/19 10/30/24 [place], MD Oz [address] [place] [address] PCP - General Internal Medicine 10/31/24 Grazyna Alvarado Speech ScientistIgnition Specialist 08/06/23 [facility] documented as of this encounter
--- OUTSIDE RECORDS SUMMARY | 2024-11-23 18:41 | XMS_ITS | Encounter Summary ---
Author Organization [employer] Address [address] [place] [address] Care Team Providers Care Card Lacer Jacquard Name Role Phone Toro Silva MD Primary Care Prov ider Name, Oz CARLTON Primary Care Provider [phone] Reason for Visit * Reason Onset Date Comments c/b request 2022 Encounter Details Date Type Department Care Team ([facility] st Contact Info) Description 2022 Telephone C [facility]EDS [address] [place], [place] [phone] Toro Silva MD [address] [place] [address] c/b request Social History Tobacco Use Types [...] for a call back. TC placed to [facility] Gastro no answer left a message for Joan on voice mail gave [facility] direct number for a call back TC placed to pt for a third time and another message was left for him to contact the [facility] nurses. Several messages also left at Gastro office with no call back will send to PCP as FYI. * Telephone Encounter - Carolyn Cha RN - 10/19/2022 11:24 AM EDT Tc from [place] with [facility] requesting a call in regards to pt upcoming colonoscopy appointment on 10/21 Please contact joan at [phone] TC returned to [place] and a message was left for a [...] for a call back. TC placed to [facility] Gastro no answer left a message for Joan on voice mail gave [facility] direct number for a call back * Telephone Encounter - Gianna Antonio - 2022 10:37 AM EDT Tc from joan with [facility] requesting a call in regards to pt upcoming colonoscopy appointment on 10/21 Please contact joan at [phone] documented in this encounter Plan of Treatment Upcoming Encounters Date Type Department Care Team (Late st Contact Info) Description 01/25/2025 11:15 AM EST Office Visit [facility] MEDICINE [address] [place] [address] [phone] Name, MD Oz [address] [place] [address] documented as of this encounter Visit Diagnoses Not on filedocumented in this encounter Additional Health Concerns Assessment Noted Time PHQ-9 Depression Total Score: 0 07/02/19 9:45 AM EDT documented as of this encounter Care Teams Card Lacer Jacquard Relationship Specialty Start Date End Date Toro Silva MD [address] [place] [address] PCP - General Internal Medicine 07/09/19 10/30/24 Name, MD Oz [address] [place] [address] PCP - General Internal Medicine 10/31/24 Grazyna Alvarado [employer] Affiliate Marketing ManagerHypertrichologist 08/06/23 [facility] 04/24/24 documented as of this encounter
--- OUTSIDE RECORDS SUMMARY | 2024-11-23 18:41 | XMS_ITS | Encounter Summary ---
Author Organization [employer] Address [address] [facility] 7t [place] [address] Care Team Providers Care Paving Foreman Name Role Phone Toro Silva MD Primary Care Prov ider Name, Oz CARLTON Primary Care Provider [phone] Reason for Visit * Reason Onset Date Comments Medication Question 03/07/2024 Encounter Details Date Type Department Care Team ([facility] st Contact Info) Description 03/07/2024 Telephone [facility] MED & PEDS 505 [place], [place] [phone] Toro Silva MD 505 [place] [address] Medication Question Social History Tobacco Use Types [...] TC from erum regarding below message . Driver Trainer sent a secure chat to provider . Per Provider hold 2 days prior procedure, restart 1 day after * Telephone Encounter - Courtney Cortes - 03/07/2024 2:17 PM EST Tc from [facility] at [facility] stating pt is scheduled for colonoscopy on 03/16/24 and Erum would like a call back to advise on holding off on medication Xarelto 2.5 MG tablet Contact Erum [phone] opt [phone] documented in this encounter Plan of Treatment Upcoming Encounters Date Type Department Care Team (Late st Contact Info) Description 01/25/2025 11:15 AM EST Office Visit [facility] MEDICINE 230 [place] [address] Name, MD Oz 230 [place] [address] documented as of this encounter Visit Diagnoses Not on filedocumented in this encounter Additional Health Concerns Assessment Noted Time PHQ-9 Depression Total Score: 11 023 9:53 AM EST documented as of this encounter Care Teams Paving Foreman Relationship Specialty Start Date End Date Toro Silva MD [address] [place] [address] PCP - General Internal Medicine 07/09/19 10/30/24 Name, MD Oz [address] [place] [address] PCP - General Internal Medicine 10/31/24 Grazyna Alvarado Metal Organ Pipe MakerIn Tube Conversion Technician 08/06/23 [facility] 04/24/24 documented as of this encounter
--- OUTSIDE RECORDS SUMMARY | 2024-11-23 18:41 | XMS_ITS | Encounter Summary ---
Demographics Address [address] [facility] [address] [place] [address] Mobile Phone Home Phone Work Phone Preferred Language Romanian; Castilian Marital Status Orthodox Affiliation Unknown Race Other Race Ethnic Group or Author Organization [facility] Address [address] [facility] [address] [place] [address] Phone Care Team Providers Care Quality Tech Name Role Phone Christina Nelson MD Primary Care Provider [phone] Toro Silva MD Primary Care Prov ider [facility] Primary Care Provider Encounter Details Date Type Department Care Team (Late st Contact Info) Description 06/22/2019 Procedure [facility] - MRI, [facility] [address] [place] [address] Social History Tobacco Use Types Packs/Day Years [...] on filedocumented in this encounter Care Teams Quality Tech Relationship Specialty Start Date End Date Christina Nelson MD [address] [facility] [address] [place] [address] PCP - General Family Medicine 02/03/19 09/17/20 Toro Silva MD [address] [place] [address] PCP - General Internal Medicine 09/18/20 03/04/21 [facility] [address] [place] [address] PCP - General 03/05/21 documented as of this encounter Additional Source Comments The information contained in this document represents components of the legal health record. It is not the complete legal health record.[facility]
--- OUTSIDE RECORDS SUMMARY | 2024-11-23 18:41 | XMS_ITS | Encounter Summary ---
Author Organization [employer] Address [address] [facility] 7t [place] [address] Care Team Providers Care Marketing Operations Associate Name Role Phone Toro Silva MD Primary Care Prov ider Name, Oz CARLTON Primary Care Provider [phone] Reason for Visit * Reason Onset Date Comments PT-1 01/17/2024 Encounter Details Date Type Department Care Team (Late st Contact Info) Description 01/17/2024 Telephone [facility] MEDICINE 230 [place] [address] Toro Silva MD 505 [place] [address] PT-1 Social History Tobacco Use Types Packs/Day [...] Y/N: Yes Provider name or facility name: [facility] Escort needed: Y/N: Yes Do you have a wheelchair: Y/N: No If yes- Manual or electric: Visits: (1 x 3 months) documented in this encounter Plan of Treatment Upcoming Encounters Date Type Department Care Team (Late st Contact Info) Description 01/25/2025 11:15 AM EST Office Visit [facility] MEDICINE 230 [place] [address] Name, MD Oz 230 [place] [address] documented as of this encounter Visit Diagnoses Not on filedocumented in this encounter Additional Health Concerns Assessment Noted Time PHQ-9 Depression Total Score: 11 023 9:53 AM EST documented as of this encounter Care Teams Marketing Operations Associate Relationship Specialty Start Date End Date Toro Silva MD [address] [place] [address] PCP - General Internal Medicine 07/09/19 10/30/24 Name, MD Oz [address] [place] [address] PCP - General Internal Medicine 10/31/24 Grazyna Alvarado Publicity ConsultantFoundry Helper 08/06/23 [facility] documented as of this encounter
--- OUTSIDE RECORDS SUMMARY | 2024-11-23 18:41 | XMS_ITS | Encounter Summary ---
Author Organization [employer] Address [address] [facility] 7t [place] [address] Care Team Providers Care Credit Risk Modeler Name Role Phone Toro Silva MD Primary Care Prov ider NameOz MD Primary Care Provider [phone] Reason for Visit * Reason Comments Med Refill Encounter Details Date Type Department Care Team (Late Contact Info) Description 10/16/2022 Refill [facility] MEDICINE [address] [place] [address] [phone] Toro Silva MD [address] [place] [address] Chronic pain syndrome Social History Tobacco Use [...] Department Care Team (Late Contact Info) Description 01/25/2025 11:15 AM EST Office Visit [facility] MEDICINE [address] [place] [address] [phone] Name, MD Oz [address] [place] [address] documented as of this encounter Visit Diagnoses Diagnosis Chronic pain syndrome documented in this encounter Additional Health Concerns Assessment Noted Time PHQ-9 Depression Total Score: 0 07/02/19 9:45 AM EDT documented as of this encounter Care Teams Credit Risk Modeler Relationship Specialty Start Date End Date Toro Silva MD 505 [place] [address] PCP - General Internal Medicine 07/09/19 10/30/24 Oz Willard MD 230 [place] [address] PCP - General Internal Medicine 10/31/24 Grazyna Alvarado Team Primary Care PhysicianNurse First Aid 08/06/23 [facility] 04/24/24 documented as of this encounter
--- OUTSIDE RECORDS SUMMARY | 2024-11-23 18:41 | XMS_ITS | Encounter Summary ---
Author Organization [employer] Address [address] [facility] [address] 7t [place] [address] Care Team Providers Care Home Energy Consultant Supervisor Name Role Phone Toro Silva MD Primary Care Prov ider Name, Oz CARLTON Primary Care Provider [phone] Reason for Visit * Reason Onset Date Comments Durable Medical Equipment 12/20/2023 Encounter Details Date Type Department Care Team (Late st Contact Info) Description 12/20/2023 Telephone [facility] MEDICINE 230 [place], [place] [phone] Toro Silva MD 505 [place] [address] Durable Medical Equipment Social History Tobacco Use [...] Description 01/25/2025 11:15 AM EST Office Visit [facility] MEDICINE 230 [place] [address] Name, MD Oz 230 [place] [address] documented as of this encounter Visit Diagnoses Not on filedocumented in this encounter Additional Health Concerns Assessment Noted Time PHQ-9 Depression Total Score: 11 023 9:53 AM EST documented as of this encounter Care Teams Home Energy Consultant Supervisor Relationship Specialty Start Date End Date Toro Silva MD 505 [place] [address] PCP - General Internal Medicine 07/09/19 10/30/24 Name, MD Oz [address] [place] [address] PCP - General Internal Medicine 10/31/24 Grazyna Alvarado Top SpotterPost Acute Care Nurse Practitioner 08/06/23 [facility] 04/24/24 documented as of this encounter
--- OUTSIDE RECORDS SUMMARY | 2024-11-23 18:42 | XMS_ITS | Encounter Summary ---
Author Organization [employer] Address [address] [facility] [address] 7t [place] [address] Care Team Providers Care Physicist Light And Optics Name Role Phone Name, Oz CARLTON Primary Care Provider [phone] Encounter Details Date Type Department Care Team (Late st Contact Info) Description 11/20/2024 Refill [facility] MEDICINE 230 [place], [place] [phone] Name, MD Oz 230 [place], [place] [phone] Neuropathy Social History Tobacco Use Types Packs/Day Years Used Date Smoking Tobacco: Never Passive Smoke Exposure: Never Smokeless Tobacco: Never Alcohol Use Standard Drinks/Week Comments Never 0 (1 standard drink = 0.6 oz pur e alcohol) Depression Answer Date Recorded Patient Health Questionnaire-9 Score 4 10/31/2024 Patient Health Questionnaire-9 Score 4 10/31/2024 Last PHQ-9: Questionnaire Data Not on file 0 10/31/2024 Housing Stability Answer Date Recorded What is your housing situation today? I have jame blas 10/31/[address] you li ve. Do you have problems with any of the following? Pests such as bugs, ants, or mice 10/31/2024 Food Insecurity Answer Date Recorded Within the [...] Answer Date Recorded Patient Health Questionnaire-2 Score 1 10/31/2024 Internet Access Answer Date Recorded Internet Access [...] Description 01/25/2025 11:15 AM EST Office Visit [facility] MEDICINE [address] [place] [phone] Name, MD Oz 230 [place] [address] documented as of this encounter Visit Diagnoses Diagnosis Neuropathy Mononeuritis of unspecified site documented in this encounter Additional Health Concerns Assessment Noted Time PHQ-9 Depression Total Score: 4 11/01/19 25 10:57 AM EDT documented as of this encounter Care Teams Physicist Light And Optics Relationship Specialty Start Date End Date NameOz MD [address] [place] [address] PCP - General Internal Medicine 10/31/24 Grazyna Alvarado Open Hearth MelterAlternative Energy Technician 08/06/23 [facility] 04/24/24 documented as of this encounter
--- OUTSIDE RECORDS SUMMARY | 2024-11-23 18:42 | XMS_ITS | Encounter Summary ---
Author Organization [employer] [facility] Address [address] [facility] 7t [place] [address] Care Team Providers Care Engineering And Operations Director Name Role Phone Toro Silva MD Primary Care Prov ider Oz Willard MD Primary Care Provider [phone] Encounter Details Date Type Department Care Team (Latest Contact Info) Description 04/21/2019 Abstract [facility] CONVERSIONS Dental, Provider, DDS Social [...] Upcoming Encounters Date Type Department Care Team ( st Contact Info) Description 01/25/2025 11:15 AM EST Office Visit [facility] 230 [place] [address] Oz Willard MD 230 [place] [address] documented as of this encounter Visit Diagnoses Not on filedocumented in this encounter Care Teams Engineering And Operations Director Relationship Specialty Start Date End Date Toro Silva MD 505 [place] [address] PCP - General Internal Medicine 07/09/19 10/30/24 Oz Willard MD 230 [place] [address] PCP - General Internal Medicine 10/31/24 Grazyna Alvarado Livestock Farm WorkersMicrowave Technician 08/06/23 [facility] 04/24/24 documented as of this encounter
--- OUTSIDE RECORDS SUMMARY | 2024-11-23 18:42 | XMS_ITS | Encounter Summary ---
Author Organization [employer] Address [address] [facility] 7t [place] [address] Care Team Providers Care Sander And Polisher Name Role Phone Toro Silva MD Primary Care Prov ider Name, Oz CARLTON Primary Care Provider [phone] Reason for Visit * Reason Onset Date Comments Med Refill 08/12/2022 Encounter Details Date Type Department Care Team ([facility] st Contact Info) Description 08/12/2022 Telephone [facility]S 505 [place], [place] [phone] Toro Silva MD 505 [place] [address] Med Refill Social History Tobacco Use Types [...] Description 01/25/2025 11:15 AM EST Office Visit [facility] MEDICINE [address] [place] [phone] Name, MD Oz 230 [place] [address] documented as of this encounter Visit Diagnoses Not on filedocumented in this encounter Additional Health Concerns Assessment Noted Time PHQ-9 Depression Total Score: 0 07/02/19 9:45 AM EDT documented as of this encounter Care Teams Sander And Polisher Relationship Specialty Start Date End Date BravoToro Brandon MD [address] [place] [address] PCP - General Internal Medicine 07/09/19 10/30/24 NameOz MD [address] [place] [address] PCP - General Internal Medicine 10/31/24 Grazyna Alvarado Medical PhysicistFlight Coordinator 08/06/23 [facility] 04/24/24 documented as of this encounter
--- OUTSIDE RECORDS SUMMARY | 2024-11-23 18:42 | XMS_ITS | Encounter Summary ---
Author Organization [employer] Address [address] [facility] 7t [place] [address] Care Team Providers Care Coupling Machine Operator Name Role Phone Toro Silva MD Primary Care Prov ider Name, Oz CARLTON Primary Care Provider [phone] Reason for Visit * Reason Onset Date Comments Med Refill 09/29/2023 Encounter Details Date Type Department Care Team (Late st Contact Info) Description 09/29/2023 Telephone [facility] MEDICINE 230 [place], [place] [phone] Toro Silva MD 505 [place] [address] Med Refill Social History Tobacco Use Types [...] 100 MG capsule To be sent to: [facility] documented in this encounter Plan of Treatment Upcoming Encounters Date Type Department Care Team (Late st Contact Info) Description 01/25/2025 11:15 AM EST Office Visit [facility] MEDICINE [address] [place] [address] Name, MD Oz 230 [place] [address] documented as of this encounter Visit Diagnoses Not on filedocumented in this encounter Additional Health Concerns Assessment Noted Time PHQ-9 Depression Total Score: 11 023 9:53 AM EST documented as of this encounter Care Teams Coupling Machine Operator Relationship Specialty Start Date End Date Toro Silva MD 505 [place] [address] PCP - General Internal Medicine 07/09/19 10/30/24 Name, MD Oz [address] [place] [address] PCP - General Internal Medicine 10/31/24 Grazyna Alvarado Director Audience MarketingBiazzi Nitrator Operator 08/06/23 Wing [facility] 04/24/24 documented as of this encounter
--- OUTSIDE RECORDS SUMMARY | 2024-11-23 18:42 | XMS_ITS | Encounter Summary ---
Demographics Address [address] [facility] [address] [place] [address] Mobile Phone Home Phone Preferred Language es Marital Status Protestant Affiliation Unknown Race Other Race Ethnic Group Unknown Author Organization [employer] Address [address] [facility] [address] 7t [place] [address] Care Team Providers Care Road Patcher Name Role Phone Toro Silva MD Primary Care Prov ider Name, Oz CARLTON Primary Care Provider [phone] Reason for Visit * Reason Comments Med Refill Encounter Details Date Type Department Care Team ([facility] Contact Info) Description 09/29/2023 Refill [facility] CHC MED & PEDS 505 [place], [place] [phone] Sophy Rubi MD 505 [place] [address] Neuropathy Social History Tobacco Use Types Packs/Day [...] Description 01/25/2025 11:15 AM EST Office Visit [facility] MEDICINE [address] [place] [address] Oz Willard MD [address] [place] [address] documented as of this encounter Visit Diagnoses Diagnosis Neuropathy Mononeuritis of unspecified site documented in this encounter Additional Health Concerns Assessment Noted Time PHQ-9 Depression Total Score: 11 023 9:53 AM EST documented as of this encounter Care Teams Road Patcher Relationship Specialty Start Date End Date Toro Silva MD [address] [place] [address] PCP - General Internal Medicine 07/09/19 10/30/24 Oz Willard MD [address] [place] [address] PCP - General Internal Medicine 10/31/24 Grazyna Alvarado Gunner'S Mate MDrive In Waiter/Waitress 08/06/23 [facility] 04/24/24 documented as of this encounter
--- OUTSIDE RECORDS SUMMARY | 2024-11-23 18:42 | XMS_ITS | Encounter Summary ---
Author Organization [employer] Address [address] [facility] [address] 7t [place] [address] Care Team Providers Care Electrical Engineering Teacher Name Role Phone Toro Silva MD Primary Care Prov ider NameOz MD Primary Care Provider Encounter Details Date Type Department Care Team (Late st Contact Info) Description 05/22/2023 Orders Only [facility] MEDICINE 230 [place], [place] [phone] Provider, MD Harley Social History Tobacco Use Types Packs/Day Years [...] the past 12 months, has t he [employer], gas, oil or water company threatened to [...] Description 01/25/2025 11:15 AM EST Office Visit [facility] MEDICINE [address] [place] [address] Oz Willard MD [address] [place] [address] documented as of this encounter Procedures Procedure [...] as of this encounter Care Teams Electrical Engineering Teacher Relationship Specialty Start Date End Date Toro Silva MD [address] [place] [address] PCP - General Internal Medicine 07/09/19 10/30/24 Oz Willard MD [address] [place] [address] PCP - General Internal Medicine 10/31/24 Grazyna Alvarado Rn SaneDeicer Tester 08/06/23 [facility] 04/24/24 documented as of this encounter
--- OUTSIDE RECORDS SUMMARY | 2024-11-23 18:42 | XMS_ITS | Encounter Summary ---
Author Organization [employer] Address [address] [facility] 7t [place] [address] Care Team Providers Care Senior Business Process Analyst Name Role Phone Toro Silva MD Primary Care Prov ider NameOz MD Primary Care Provider [phone] Reason for Visit * Reason Comments Med Refill Encounter Details Date Type Department Care Team (Late Contact Info) Description 07/11/2022 Refill [facility] MEDICINE [address] [place] [address] [phone] Toro Silva MD [address] [place] [address] Chronic pain syndrome Social History Tobacco Use [...] Description 01/25/2025 11:15 AM EST Office Visit [facility] MEDICINE [address] [place] [address] [phone] Name, MD Oz [address] [place] [address] documented as of this encounter Visit Diagnoses Diagnosis Chronic pain syndrome documented in this encounter Additional Health Concerns Assessment Noted Time PHQ-9 Depression Total Score: 0 07/02/19 9:45 AM EDT documented as of this encounter Care Teams Senior Business Process Analyst Relationship Specialty Start Date End Date Toro Silva MD 505 [place] [address] PCP - General Internal Medicine 07/09/19 10/30/24 Oz Willard MD 230 [place] [address] PCP - General Internal Medicine 10/31/24 Grazyna Alvarado Medical Billing CoderFloat Operator 08/06/23 Wing [facility] 04/24/24 documented as of this encounter
--- OUTSIDE RECORDS SUMMARY | 2024-11-23 18:42 | XMS_ITS | Clinical Summary ---
Demographics Address [address] [place] [address] Mobile Phone Home Phone Work Phone Preferred Language Faroese; Castilian Marital Status Yazidism Affiliation Unknown Race Other Race Ethnic Group or Author Organization [facility] Address [address] [facility] [address] [place] [address] Phone Care Team Providers Care Still Operator Gin Name Role Phone [facility], [facility] Primary Care Provider Allergies Active Allergy Reactions Criticality Noted Date Comments Egg Derived Anaphylaxis,Unknown 01/27/2011 Penicillins 08/17/2019 Medications loratadine (CLARITIN) 10 mg tablet Take 10 mg by mouth daily. Active DULoxetine (CYMBALTA) 60 MG capsule Take 60 mg by mouth daily. Active topiramate (TOPAMAX) 50 MG tablet Take 50 mg by mouth 2 (two) times a day. Active carvedilol (COREG) 25 MG tablet Take 25 mg by mouth 2 (two) times a day with meals. Active pantoprazole (PROTONIX) 20 MG tablet Take 20 mg by mouth daily. Active fluticasone propion-salmeter oL (ADVAIR DISKUS) 100-50 mcg/dose DISKUS Inhale 100 mcg/actuation of fluticasone into the lungs 2 (two) times a day. Active rivaroxaban (XARELTO) 10 mg tablet Take 10 mg by mouth daily. Active chlorthalidone (HYGROTON) 25 MG tablet Take 25 mg by mouth daily. Active lisinopril (PRINIVIL,ZESTRI L) 10 MG tablet Take 10 mg by mouth daily. Active prazosin (MINIPRESS) 2 MG capsule Take 2 mg by mouth nightly at bedtime. Active atorvastatin (LIPITOR) 20 MG tablet Take 20 mg by mouth daily. Active QUEtiapine (SEROQUEL) 300 MG tablet Take 300 mg by mouth nightly at bedtime. Active traZODone (DESYREL) 150 MG tablet Take 150 mg by mouth nightly at bedtime. Active furosemide (LASIX) 20 MG tablet Take 20 mg by mouth. Active amLODIPine (NORVASC) 10 MG tablet Take 10 mg by mouth daily. Active dulaglutide (TRULICITY) 0.75 mg/0.5 mL subcutaneous injection Inject 0.75 mg under the skin every 7 days. Active albuterol 90 mcg/actuation inhaler Inhale 2 puffs into the lungs every 6 (six) hours as needed for wheezing. Active insulin lispro (HUMALOG U-100 INSULIN SUBQ) Inject under the skin. Active plecanatide (TRULANCE) 3 mg tablet Take 3 mg by mouth daily. Active ergocalciferol (DRISDOL) 50,000 unit capsule Take 50,000 Units by mouth once a week. Active fluticasone propionate (FLOVENT HFA) 110 mcg/actuation inhaler Inhale 1 puff into the lungs 2 (two) times a day. Active Active Problems No known active problems Family History Medical History Relation Comments Blindness Maternal Uncle Cataracts Mother Blindness Paternal Uncle Glaucoma Neg Hx Relation Status Comments Maternal Uncle Mother Paternal Uncle Social History Tobacco Use Types Packs/Day Years Used Date Smoking Tobacco: Never Smokeless Tobacco: Never Alcohol Use Standard Drinks/Week Comments Never 0 (1 standard drink = 0.6 oz pur e alcohol) Education Answer Date Recorded Are you interested in more education? Not on corey e 06/07/2022 Are you concerned about learning? Not on file 06/07/2022 No 06/07/2022 No 06/07/2022 Digital Access Answer Date Recorded No 07/01/2022 No 07/01/2022 No 07/01/2022 Reliable internet access at home? Not on file 07/01/2022 Device with a working camera? Not on file Sex and Gender Information Value Date Recorded Sex Assigned at Not on file Legal Sex Male 5:03 PM EST Gender Identity Not on file Sexual Orientation Not on file Last Filed Vital Signs Vital Sign Reading Time Taken Comments Blood Pressure 105/69 11/21/2019 3:54 PM EDT Pulse 121 11/21/2019 3:54 PM EDT pt as ymptomatic Temperature - - Respiratory Rate 17 11/21/2019 3:54 PM EDT Oxygen Saturation - - Inhaled Oxygen Concentration - - Weight 111.6 kg (246 lb) 06/28/2019 9:14 AM EDT Height 160 cm (5' 3 ) 06/28/2019 9:14 AM EDT Body Mass Index 43.58 06/28/2019 9:14 AM EDT Plan of Treatment Health Maintenance Due Date Last Done Comments LIPID PANEL 1963 POTASSIUM LEVEL 1963 DEPRESSION SCREENING 1975 HEPATITIS C SCREENING 10/14/1981 HIV ONE-TIME SCREENING (18-6 5 YEARS) 10/14/1981 COLOGUARD 10/14/2008 COLONOSCOPY 10/14/2008 COLORECTAL CANCER SCREENING 10/14/2008 FIT TEST 10/14/2008 FOBT 10/14/2008 SIGMOIDOSCOPY 10/14/2008 VIRTUAL COLONOSCOPY 10/14/2008 PNEUMOCOCCAL VACCINES (50+ years) (1 of 1 - PCV) 10/14/2013 CREATININE LEVEL 08/16/2020 08/17/2019 INFLUENZA VACCINE (#1) 2024 COVID-19 VACCINE (2 - 2024-2 6 season) 2024 05/07/2020 Adult Td,Tdap Booster 12/21/2028 12/21/2018 RSV VACCINE (1 - 1-dose 75+ series) 10/14/2038 ZOSTER VACCINES Completed 02/20/2019, 12/21/2018 SMOKING STATUS SCREENING (On ce After 26 Yrs) Completed 03/25/2021 HEPATITIS A VACCINES Aged Out No long er eligible based on patient's age to complete this topic HIB VACCINES Aged Out No longer eligi ble based on patient's age to complete this topic MENINGOCOCCAL VACCINES (ACWY) Aged Out No longer eligible based on patient's age to complete this topic MENINGOCOCCAL VACCINES (B) Aged Out N o longer eligible based on patient's age to complete this topic Medical Devices Not on file Procedures Procedure Name Priority Date/Time Associated Diagnosis Comments CREATININE/EGFR Routine 08/17/2019 1:14 PM EDT Vision loss, bilateral from Last 3 Months or Most Recently Relevant to Health Maintenance Results * (ABNORMAL) Creatinine/eGFR (08/17/2019 1:14 PM EDT) CREATININE 1.91(H) 0.6 - 1.5 mg/dL [facility] EGFR 39(L) >59 mL/min/1. 73m2 [facility] Comment:Estimated glomerular filtration rate calculated using the CKD-EPI equation. 08/17/2019 1:14 PM EDT 08/17/2019 2:33 PM EDT Isabel Forrest MD LAB BLOOD [place] [address], [facility] from Last 3 Months or Most Recently Relevant to Health Maintenance Insurance [address] [place] [address] [place] [address] [employer] [place] [id number] C3 ACO [facility] C3 ACO Care Teams Still Operator Gin Relationship Specialty Start Date End Date [facility] [address] [place] [address] PCP - General 03/05/21 Additional Source Comments The information contained in this document represents components of the legal health record. It is not the complete legal health record.[facility]
--- OUTSIDE RECORDS SUMMARY | 2024-11-23 18:42 | XMS_ITS | Encounter Summary ---
Demographics Address [address] [place] [address] Mobile Phone Home Phone Preferred Language es Marital Status Religion Affiliation Unknown Race Other Race Ethnic Group Unknown Author Organization [employer] Address [address] [place] [address] Care Team Providers Care Ethylbenzene Converter Helper Name Role Phone Toro Silva MD Primary Care Prov ider Name, Oz CARLTON Primary Care Provider [phone] Reason for Visit * Reason Onset Date Comments Med Refill 04/13/2022 Encounter Details Date Type Department Care Team ([facility] st Contact Info) Description 04/13/2022 Refill [facility] [address] [place], [place] [phone] Toro Silva MD [address] [place] [address] Social History Tobacco Use Types Packs/Day Years [...] [employer]) 100 UNIT/ML pen Please sent to [facility] - [place], [place] - [address] documented in this encounter Plan of Treatment Upcoming Encounters Date Type Department Care Team (Late st Contact Info) Description 01/25/2025 11:15 AM EST Office Visit [facility] [address] [place] [address] Name, MD Oz [address] [place] [address] documented as of this encounter Visit Diagnoses Not on filedocumented in this encounter Care Teams Ethylbenzene Converter Helper Relationship Specialty Start Date End Date Toro Silva MD [address] [place] [address] PCP - General Internal Medicine 07/09/19 10/30/24 Name, MD Oz [address] [place] [phone] PCP - General Internal Medicine 10/31/24 Grazyna Alvarado Belt BranderField Inspector 08/06/23 [facility] 04/24/24 documented as of this encounter
--- OUTSIDE RECORDS SUMMARY | 2024-11-23 18:42 | XMS_ITS | Encounter Summary ---
Author Organization [employer] Address [address] [place] [address] Care Team Providers Care Electric Screw Driver Operator Name Role Phone Toro Silva MD Primary Care Prov ider Name, Oz CARLTON Primary Care Provider [phone] Encounter Details Date Type Department Care Team (Late st Contact Info) Description 04/21/2024 Telephone [facility] [address] [place] [address] Toro Silva MD [address] [place], [place] [phone] Social History Tobacco Use Types Packs/Day Years [...] Description 01/25/2025 11:15 AM EST Office Visit [facility] [address] [place] [phone] Oz Willard MD [address] [place] [address] documented as of this encounter Visit Diagnoses Not on filedocumented in this encounter Additional Health Concerns Assessment Noted Time PHQ-9 Depression Total Score: 11 023 9:53 AM EST documented as of this encounter Care Teams Electric Screw Driver Operator Relationship Specialty Start Date End Date Toro Silva MD [address] [place] [address] PCP - General Internal Medicine 07/09/19 10/30/24 Oz Willard MD [address] [place] [address] PCP - General Internal Medicine 10/31/24 Grazyna Alvarado Salsa Dance InstructorHalfway House Counselor 08/06/23 [facility] 04/24/24 documented as of this encounter
--- OUTSIDE RECORDS SUMMARY | 2024-11-23 18:42 | XMS_ITS | Encounter Summary ---
Demographics Address [address] [place] [address] Mobile Phone Home Phone Preferred Language es Marital Status Restorationism Affiliation Unknown Race Other Race Ethnic Group Unknown Author Organization [employer] Address [address] [facility] [address] [place] [address] Care Team Providers Care Picture Copyist Name Role Phone Toro Silva MD Primary Care Prov ider Name, Oz CARLTON Primary Care Provider [phone] Reason for Visit * Reason Onset Date Comments Hospital Follow-up 04/20/2024 Encounter Details Date Type Department Care Team ([facility] Contact Info) Description 04/20/2024 Telephone [facility] [address] [place], [place] [phone] Toro Silva MD [address] [place] [address] Hospital Follow-up Social History Tobacco Use Types [...] call regarding Prior message. Contact pt at [phone] * Telephone Encounter - Courtney Cortes - 04/20/2024 10:47 AM EDT TC from pt PROCUREMENT SERVICES MANAGER Tonya returning call to cardiac care unit nurse regarding HDF. Contact Tonya at [phone] documented in this encounter Plan of Treatment Upcoming Encounters Date Type Department Care Team (Late st Contact Info) Description 01/25/2025 11:15 AM EST Office Visit [facility] [address] [place] [address] Name, MD Oz [address] [place] [address] documented as of this encounter Visit Diagnoses Not on filedocumented in this encounter Additional Health Concerns Assessment Noted Time PHQ-9 Depression Total Score: 11 023 9:53 AM EST documented as of this encounter Care Teams Picture Copyist Relationship Specialty Start Date End Date Toro Silva MD [address] [place] [phone] PCP - General Internal Medicine 07/09/19 10/30/24 Name, MD Oz [address] [place] [address] PCP - General Internal Medicine 10/31/24 Grazyna Alvarado Dumping Machine OperatorFur Puller 08/06/23 [facility] 04/24/24 documented as of this encounter
--- OUTSIDE RECORDS SUMMARY | 2024-11-23 18:42 | XMS_ITS | Clinical Summary ---
Author Organization [employer] Address [address] [facility] 7t [place] [address] Care Team Providers Care Red Hat Linux Engineer Name Role Phone Name, Oz CARLTON Primary Care Provider [phone] Allergies Active Allergy Reactions Criticality Noted Date Comments Apple Juice 06/10/2015 Egg Protein-Containing Drug Products 05/03/2019 Influenza Virus Vaccine 08/20/2022 Other reaction(s): swelling Lisinopril 05/03/2019 Other reaction(s): mild unknown Nifedipine 05/03/2019 Penicillins Rash Low 05/26/2011 Shellfish Protein-Containing Drug Products 05/03/2019 Other reaction(s): swollen throat Medications acetaminophen (Tylenol 8 Hour) 650 MG ER tablet Take 2 tablets by mouth every 8 (eight) hours. Active amLODIPine (Norvasc) 10 MG tablet [...] Administer 0.1 mL into affected nostril(s). Active plecanatide (Trulance) tablet tablet Take 1 tablet by mouth in the morning. Active SUMAtriptan (Imitrex) 25 MG tablet Take 1 tablet by mouth. Active fluticasone (Flonase) 50 MCG/ACT nasal sprayIndications :Nasal polyp 1 spray each nostril once a day Strength: 50 MCG/ACT 16 g 2 022 Active Loratadine (Claritin) 10 MG capsuleIndicatio ns:Chronic rhinitis Take 1 capsule by mouth in the morning. 90 capsule 2 023 Active Calcium Antacid Extra Strength 750 MG chewable tablet Chew 750 mg 2 times daily. 023 Active pantoprazole (ProtoNix) 40 MG EC [...] FOR SLEEP 180 tablet 1 024 Active TRUEplus Lancets 33G misc TEST BLOOD SUGAR FOUR TIMES DAILY 100 each 11 024 Active Alcohol Swabs (Alcohol Prep) 70 % pads USE DIRECTED FOUR TIMES DAILY 100 each 11 024 Active FREESTYLE LITE test stripIndications :Type 2 diabetes mellitus with stage 3b chronic kidney disease, with long-term current use of insulin ([facility]) TEST BLOOD SUGAR FOUR TIMES DAILY 100 strip 11 024 Active lisinopril 40 MG tabletIndication s:Primary hypertension TAKE 1 TABLET BY MOUTH EVERY MORNING 90 tablet 3 024 Active Dulaglutide 4.5 MG/0.5ML solution auto-injector Inject 0.5 mL (4.5 mg) under the skin 1 (one) time per week. 3 mL 3 024 Active chlorthalidone (Hygroton) 25 MG tabletIndication s:Primary hypertension TAKE 1 TABLET BY MOUTH EVERY MORNING 90 tablet 3 025 Active allopurinol (Zyloprim) 100 MG tablet Take 1 tablet (100 mg) by mouth Once per day. 30 tablet 11 025 2025 Active albuterol (ProAir HFA) 108 (90 Base) MCG/ACT inhaler Inhale 2 puffs every 4 (four) hours. 18 g 3 Active albuterol (2.5 MG/3ML) 0.083% nebulizer solution Take 3 mL by nebulization every 8 (eight) hours. 75 mL 3 Active Nebulizers [facility] Use nebulizer as instructed 1 each Active cetirizine (ZyrTEC) 10 MG tablet TAKE 1 TABLET BY MOUTH EVERY MORNING 90 tablet 3 Active Ferrous Sulfate (iron) 325 (65 Fe) MG tabletIndication s:Iron deficiency anemia secondary to inadequate dietary iron intake TAKE 1 TABLET BY MOUTH EVERY EVENING 90 tablet 3 025 Active Jardiance 25 MG TAKE 1 TABLET BY MOUTH EVERY MORNING 30 tablet 7 025 Active topiramate 50 MG tabletIndication s:Chronic migraine w/o aura w/o status migrainosus, not intractable TAKE 1 TABLET BY MOUTH AT BEDTIME 30 tablet 7 025 2025 Active Xarelto 2.5 MG tabletIndication s:Pulmonary embolism and infarction (CMS/HCC) (HCC) TAKE 1 TABLET BY MOUTH TWICE DAILY IN THE MORNING AND IN THE EVENING 60 tablet 3 025 Active carvedilol (Coreg) 25 MG tabletIndication s:Primary hypertension TAKE 1 TABLET BY MOUTH TWICE DAILY IN THE MORNING AND IN THE EVENING WITH FOOD 180 tablet 1 Active atorvastatin (Lipitor) 80 MG tabletIndication s:Mixed hyperlipidemia TAKE 1 TABLET BY MOUTH AT BEDTIME 90 tablet 1 025 Active Lantus SoloStar 100 UNIT/ML penIndications:C KD stage 3 due to type 2 diabetes mellitus (HCC) INJECT 35 UNITS SUBCUTANEOUSLY TWICE DAILY 15 mL 2 025 Active gabapentin (Neurontin) 100 MG capsuleIndicatio ns:Neuropathy TAKE 1 CAPSULE BY MOUTH THREE TIMES DAILY IN THE MORNING, EVENING, AND BEDTIME 90 capsule 025 Active pantoprazole (ProtoNix) 20 MG EC tablet Take 2 tablets by mouth in the morning. 022 2024 Discontinued(D uplicate order (will not trigger notification to Pharmacy)) loratadine (Claritin) 10 MG tablet Take 10 mg by mouth in the morning. 023 2024 Discontinued(D uplicate order (will not trigger notification to Pharmacy)) meloxicam (Mobic) 15 MG tablet Take 1 tablet (15 mg) by mouth Once per day. 30 tablet 11 025 2024 Discontinued gabapentin (Neurontin) 100 MG capsuleIndicatio ns:Neuropathy TAKE 1 CAPSULE BY MOUTH THREE TIMES DAILY IN THE MORNING, EVENING, AND BEDTIME 90 capsule 025 2024 Discontinued(R eorder (will not trigger notification to Pharmacy)) Active Problems Problem Noted Date Diagnosed Date Shortness of breath 07/21/2024 Assessment & Plan (07/21/2024 1:44 PM EDT): Patient with persistant shortness of breath, using inhaler more than 3 times a week, will order new PFT and will refer to Pneumology for evaluation Right knee pain 06/03/2024 Assessment & Plan (06/03/2024 9:18 AM EDT): Patient here with c/o acute on chronic right knee pain. Initially seen in the ER at [facility] 04/16/2024 , admitted with c/o septic joint, [...] (08/04/2022 2:39 PM EDT): Followed by cardiology [place] filter in place 01/07/2018 Hemiparesis affecting left s jose alfredo as late effect of cerebrovascular accident ([facility]) 01/07/2018 History of coronary artery stent placement [...] for guidance of therapy Continuous opioid dependence ([facility]) 8 Nasal polyp 04/06/2017 Cerebrovascular accident ([facility]) 04/06/2017 CKD stage 3 due to type [...] reflux disease without esophagi tis 04/06/2017 Hemiparesis ([facility]) 04/06/2017 Primary hypertension 04/06/2017 Assessment & Plan [...] 3 months Mood disorder 04/06/2017 Morbid obesity ([facility]/HCC) 04/06/2017 Obstructive sleep apnea syndrome 04/06/2017 Positive PPD 04/06/2017 Pulmonary embolism and infarction (CMS/HCC) 03/12 Status post bilateral knee replacements 04/06/19 18 [...] Eye exam pending to be done at [facility] Assessment & Plan (04/07/2023 1:46 PM EST): [...] a1c 6.7%, continue trulicity/lantus, follow up endocrinology Resolved Problems Problem Noted Date Diagnosed Date Resolved Date Chest pain 04/06/2017 10/31/2024 Encounters Date Type Department Care Team Description 11/20/[address] [address] Oz Willard MD Neuropathy 11/15/2024 Orders Only GENERIC EXTERNAL DATA DEPARTMENT Provider, Generic External Data 11/06/[address] [address] Oz Willard MD Durable Medical Equipment 10/31/2024 10:15 AM EDT Office Visit [address] [address] Oz Willard MD Type 2 diabetes mellitus with stage 3b chronic kidney disease, with long-term current use of insulin ([facility]) (Primary Dx); Chronic pain of right knee; Encounter for immunization; Blindness and low vision 10/31/2024 Abstract [facility] [address] [place] [address] Oz Willard MD 10/31/2024 Travel 10/30/[address] [address] Caleb Macdonald [place] chart prep 10/24/2024 Patient Outreach [facility] [address] [place], [place] [phone] Toro Silva MD Pre-visit Planning ([facility] unable to reach [facility] ) 10/23/2024 Refill [facility] [address] [place] [address] Toro Silva MD CKD stage 3 due to type 2 diabetes mellitus ([facility]) 10/18/2024 Telephone [facility] [address] [place] [address] Toro Silva MD 10/10/2024 Refill [facility] [address] [place] [address] Toro Silva MD Neuropathy 09/11/2024 Refill [facility] [address] [place] [address] Toro Silva MD Neuropathy from Last 3 Months Immunizations Immunization Administration Dates Next Due Hep B, adult 02/11/2011 Moderna Covid-19 Vaccine 12+ 07/31/2021, 02/19/2021,06/04/2020,05/08/19 21 Pneumococcal Conjugate PCV 20 10/31/2024 Pneumococcal Polysaccharide PPSV23 02/04/2006 Tdap 12/21/2018 Zoster, [...] your housing situation today? I have jame sing 10/31/[address] you li [...] Sign Reading Time Taken Comments Blood Pressure 130/78 10/31/2024 10:20 AM EDT Pulse 106 10/31/2024 10:20 AM EDT Temperature 37.6 C (99.6 F) 10/31/2024 10:20 AM EDT Respiratory Rate 26 10/31/2024 10:20 AM EDT Oxygen Saturation 98% 10/31/2024 10:20 AM EDT Inhaled Oxygen Concentration - - Weight 104 kg (230 lb) 10/31/2024 10:20 AM EDT Height 160 cm (5' 3 ) 10/31/2024 10:20 AM EDT Body Mass Index 40.74 10/31/2024 10:20 AM EDT Plan of Treatment Upcoming Encounters Date Type Department Care Team (Late st Contact Info) Description 01/25/2025 11:15 AM EST Office Visit [facility] [address] [place] [phone] Name, MD Oz [address] [place] [address] Health Maintenance Due Date Last Done Comments CT Colonography 1965 FIT DNA/Cologuard 1965 FIT 1965 FOBT 1965 Sigmoidoscopy 1965 Hepatitis B Vaccines (2 of 3 - 19+ 3-dose series) 03/11/2011 02/11/2011 Eye Exam 08/01/2023 07/31/2022, 07/10, 07/31/2022, Additional history exists RSV Patients and Patients Aged 60 years or older (1 - Risk 60-74 years 1-dose series) 2023 COVID-19 Vaccine ( season) 2024 07/31/2021, 02/19/2021, 06/04/2020, Additional history exists Influenza Vaccine (#1) 2024 04/18/2007 Lipid Panel 12/14/2024 12/15/2023, 04/06/2023, 05/11/2022, Additional history exists Diabetes: Foot Exam 01/19/2025 01/20/2024, 01/20/2024, 01/20/2024, Additional history exists Diabetes: Hemoglobin A1C 04/30/2025 025, 04/06/2024, 12/15/2023, Additional history exists Alcohol/Substance Use Screening 10/31/2025 10/31/2024 Depression Screening 10/31/2025 10/31/2024, 11/01/19 25 Disability Screening 10/31/2025 10/31/2024 SDOH Screening 10/31/2025 10/31/2024 Tobacco Screening 10/31/2025 10/31/2024 DTaP/Tdap/Td Vaccines (2 - Td or Tdap) 12/21/2028 12/21/2018 Colonoscopy 03/16/2029 03/16/2024, 11/07/2020 Colorectal Cancer Screening 03/16/2029 Zoster Vaccines Completed 02/20/2019, 12/21/2018 HIV Screening Completed 05/11/2022, 02/20/2019 Hepatitis C Screening Completed 05/11/2022, 020 Pneumococcal Vaccine: 50+ Years Completed 10/31/2024, 04/18/2007, 02/04/2006 HIB Vaccines Aged Out No longer eligi [...] patient's age to complete this topic Meningococcal B Vaccine Aged Out No l onger eligible based on patient's age to complete [...] Associated Diagnosis Comments GLUCOSE, WHOLE BLOOD Routine 11/15/2024 2:32 PM EDT POCT GLYCATED HEMOGLOBIN, TOTAL Routine 10/31/2024 10:28 AM EDT Type 2 diabetes mellitus with stage 3b chronic kidney disease, with long-term current use of insulin (CMS/HCC) POCT GLUCOSE Routine 10/31/2024 10:24 AM EDT Type 2 diabetes mellitus with stage 3b chronic kidney disease, with long-term current use of insulin (CMS/HCC) HM COLONOSCOPY Routine 03/16/2024 LIPID PANEL, STANDARD Routine 12/15/2023 10:01 AM [...] disease, without long-term current use of insulin ([facility]/HCC) from Last 3 Months or Most Recently Relevant to Health Maintenance Results * Glucose, Whole Blood (11/15/2024 2:32 PM EDT) Glucose, Whole Blood 101 60 - 115 mg/dL [facility] Comment:METER #: [id number] 0Testing performed in the Endocrinology Department [address] , [address], [facility]. 11/15/2024 2:32 PM EDT 11/15/2024 2:37 PM EDT Generic External Data Provider LAB BLOOD ORDERAB LES Final Result [facility] [address] [place] [phone] [phone] * (ABNORMAL) POCT Hgb A1c (10/31/2024 10:28 AM EDT) Hemoglobin A1C 6.5(A) 4.0 - 5.7 % QC Media Lot # [id number] Lot# Expiration Date [id number] Blood 10/31/2024 10:2 8 AM EDT Oz Willard MD POINT OF CARE TEST ENTER/EDIT OR DERABLES Final Result * POCT Glucose (10/31/2024 10:24 AM EDT) Glucose Blood, POC 182 60 - 200 mg/dL QC Media Lot # [id number] Lot# Expiration Date 22,726 Blood Capillary blood specimen / Unknown 10/31/2024 10:24 AM EDT Oz Willard MD POINT OF CARE TEST ENTER/EDIT OR DERABLES Final Result * Hm Colonoscopy (03/16/2024) Colonoscopy Normal Normal 03/16/2024 us Oz Willard MD HEALTH MAINTENANCE Final Result * (ABNORMAL) Lipid Panel, Standard (12/15/2023 10:01 AM EST) Triglycerides 141 <150 mg/dL [facility] Comment:Desirable Triglyceri de: less than 150 mg/dLBorderline High Triglyceride 150-199 mg/dLHigh Triglyceride: 200-499 mg/dLVery High Triglyceride: greater than or equal to 5OO mg/dL Cholesterol 106 <200 mg/dL [facility] Comment:Desirable Cholestero l: less than 200 mg/dLBorderline High Cholesterol: 200-239 mg/dLHigh Cholesterol: greater than 239 mg/dL LDL Cholesterol Calculated 45 <100 mg/dL [facility] Comment:Desirable LDL: less than 100 mg/dLNear Optimal/Above Optimal LDL: 110- 129 mg/dLBorderline High LDL: 130-159 mg/dLHigh LDL: 160-189 mg/dLVery High LDL: greater than or equal to 190 mg/dL HDL Cholesterol 33(L) >40 mg/dL [facility] Comment:Desirable HDL: great er than 40 mg/dL Note: This HDL assay may give artificially low results in patients with liver disease. Blood Venous blood specimen / Unknown 12/15/2023 10:01 AM EST 12/15/2023 11:32 AM EST Toro Perez MD LAB BLOOD ORDERABL ES Final Result [facility] [address] [place] [phone] * HIV-1 RNA, Quantitative, Real-Time PCR with Reflex to Genotype (RTI, PI, Integrase) (05/11/2022 9:42 AM EDT) Pathologist [facility] HIV 1 RNA, QN PCR NOT DETECTED copies/mL [facility], HIV 1 RNA, QN PCR NOT DETECTED Log copies/mL [facility], Comment: REFERENCE RANGE: NOT DETECTED copies/mL NOT DETECTED Log copies/mL This test was performed using Real-Time Polymerase Chain Reaction. Reportable range is 20 to 10,000,000 copies/mL (1.30-7.00 Log copies/mL). 05/11/2022 9:42 AM EDT 05/11/2022 9:43 AM EDT Narrative [facility] - 05/14/2022 12:55 AM EDT FASTING:YES FASTING: YES Toro Perez MD LAB BLOOD ORDERABL ES Final Result Performing Organization Address [facility] Co de Phone Number [facility] [address], [facility] [place] [place] [address] [employer], [address] [place] [phone] * Hepatitis C Antibody with Reflex to HCV, RNA, Quantitative, Real-Time PCR (05/11/2022 9:42 AM EDT) Hepatitis C Antibody NON-REACT TAMERA NON-REACT TAMERA [employer] [place] [employer] Index 0.08 <1.00 [employer] [place] [employer] Comment: HCV antibody was non-reactive. There is no laboratory evidence of HCV infection. In most cases, no further action is required. However, if recent HCV exposure is suspected, a test for HCV RNA (test code 44244) is suggested. For additional information please refer to http://education.[employer]/faq/XIC45a3 (This link is being provided for informational/ educational purposes only.) Blood Venous blood specimen / Unknown 05/11/2022 9:42 AM EDT 05/11/2022 9:43 AM EDT Narrative [facility] - 05/14/2022 12:55 AM EDT FASTING:YES FASTING: YES Toro Perez MD LAB BLOOD ORDERABL ES Final Result Performing Organization Address [facility]/ZIP Co de Phone Number [facility] [address], [facility] [place] [place] [address] [employer] [place] [employer] [address] [place] [phone] from Last 3 Months or Most Recently Relevant to Health Maintenance Insurance * Guarantor: Davon Gonzalez Account Type Relation to Patient Date of Phone Billing Address Personal/Family Self [address] [place] [address] [facility] C3 Care Teams Red Hat Linux Engineer Relationship Specialty Start Date End Date Name, MD Oz [address] [place] [address] PCP - General Internal Medicine 10/31/24 Grazyna Alvarado Pediatric Physical Therapy AssistantChief Green Officer 08/06/23 [facility] 04/24/24
--- OUTSIDE RECORDS SUMMARY | 2024-11-23 18:42 | XMS_ITS | Encounter Summary ---
Author Organization [employer] [facility] Address [address] [facility] 7t [place] [address] Care Team Providers Care Target Worker Name Role Phone Toro Silva MD Primary Care Prov ider NameOz MD Primary Care Provider [phone] Encounter Details Date Type Department Care Team (Late Contact Info) Description 03/05/2022 Orders Only [facility] [address] [place] [phone] Toro Silva MD [address] [place] [phone] Disorder of vision (Primary Dx) Social History [...] Description 01/25/2025 11:15 AM EST Office Visit [facility] [address] [place] [phone] Oz Willard MD [address] [place] [address] documented as of this encounter Procedures Procedure Name Priority Date/Time Associated Diagnosis Comments HEMATOXYLIN AND EOSIN STAIN Routine 10/21/2022 1:32 PM EDT Disorder of vision GLUCOSE, WHOLE BLOOD Routine 10/21/2022 11:49 AM EDT Disorder of vision documented in this encounter Results * Hematoxylin and Eosin Stain (10/21/2022 1:32 PM EDT) 10/21/2022 1:32 PM EDT 10/21/2022 3:10 PM EDT [facility] - 10/22/2022 2:46 PM EDT ----- ------- Name: Davon Gonzalez Age/Sex: 57/M : 1965 Unit#: [id number] Attend Dr: Valente Drake MD Re10/21/22 Status: [facility] Location: [facility] Disch: ----- ------- SPEC : [id number] RECD: 10/21/22 STATUS: LUIS RESriram NUM: [id number] ARLYN: 10/21/[address] [facility] [address]: Valente Drake MD ENTERED: 10/21/22 SP TYPE: Surgical OTHR DR: Toro Silva MD ORDERED: HE Stain/6, Gross Micro L4/2 Diagnosis A. Colon, cecal polyp: Colonic mucosa with no specific change; no adenomatous dysplasia seen. B. Colon, transverse, polyp: Tubular adenoma, completely excised; negative for high- grade dysplasia and carcinoma. Clinical History Pre-Op Dx: Anemia Post-Op Dx: Colon polyps, hemorrhoids, poor prep Microscopic Description Microscopic sections reviewed. Material Received A. Polyp cecum B. Polyp transverse colon Gross Description Received in 2 parts. Part A: Received in formalin labeled polyp cecum is a 1.2 x 0.9 x 0.1 cm thin and delicate rectangular fragment of sequeira mucosa which is sectioned and entirely submitted in a single cassette labeled A. Part B: Received in formalin labeled polyp transverse colon along with copious debris is a 0.45 cm in greatest dimension semitranslucent, soft, sequeira-pink papular tissue fragment which is submitted in toto in a single labeled B. The debris is retained in formalin. CEDS Copies To: Toro Silva MD [address] [place] [phone] CONTINUED ON NEXT PAGE ----- ------- Name: Davon Gonzalez Age/Sex: 57/M : 1965 Unit#: [id number] Attend Dr: Valente Drake MD Re10/21/22 Status: [facility] Location: [facility] Disch: ----- ------- SPEC : [id number] RECD: 10/21/22 STATUS: LUIS SÁNCHEZ NUM: [id number] ARLYN: 10/21/[address] [facility] [address]: Valente Drake MD ENTERED: 10/21/22-1510 SP TYPE: Surgical OTHR DR: Toro Silva MD ORDERED: HE Stain/6, Gross Micro L4/2 Copies To: (Continued) Valente Drake MD [address] [place] [address] [place] [address] ----- ------- Signed (signature on file) Jennifer Yoly 10/22/22 1446 ----- ------- END OF REPORT [facility] External Provider LAB BLO OD ORDERABLES Final Result Performing Organization Address [facility] Co de Phone Number [facility] [address] [place] [phone] * (ABNORMAL) Glucose, Whole Blood (10/21/2022 11:49 AM EDT) Glucose, Whole Blood 143(H) 60 - 115 mg/dL [facility] Comment:METER #: [id number] 10/21/2022 11:4 9 AM EDT 10/21/2022 11:52 AM EDT [facility] External Provider LAB BLO OD ORDERABLES Final Result Performing Organization Address [facility] Co de Phone Number [facility] [address] [place] [address] [phone] documented in this encounter Visit Diagnoses Diagnosis Disorder of vision- Primary documented in this encounter Care Teams Target Worker Relationship Specialty Start Date End Date Toro Silva MD [address] [place] [address] PCP - General Internal Medicine 07/09/19 10/30/24 Oz Willard MD [address] [place] [phone] PCP - General Internal Medicine 10/31/24 Grazyna Alvarado Flight Test EngineerInstructional Systems Specialist 08/06/23 [facility] 04/24/24 documented as of this encounter
--- OUTSIDE RECORDS SUMMARY | 2024-11-23 18:42 | XMS_ITS | Encounter Summary ---
Author Organization [employer] Address [address] [facility] 7t [place] [address] Care Team Providers Care Pediatric Oncologist Name Role Phone Toro Silva MD Primary Care Prov ider Name, Oz CARLTON Primary Care Provider [phone] Reason for Visit * Reason Onset Date Comments Durable Medical Equipment 04/12/2024 Encounter Details Date Type Department Care Team ([facility] st Contact Info) Description 04/12/2024 Telephone [facility] [address] [place], [place] [phone] Toro Silva MD [address] [place] [address] Durable Medical Equipment Social History Tobacco Use [...] Please provide DX to support. Tc from [facility] gregoria Trujillo stating pt needs new crutches [...] Visit [facility] [address] [place] [address] Name, MD Oz [address] [place] [address] documented as of this encounter Visit Diagnoses Not on filedocumented in this encounter Additional Health Concerns Assessment Noted Time PHQ-9 Depression Total Score: 11 023 9:53 AM EST documented as of this encounter Care Teams Pediatric Oncologist Relationship Specialty Start Date End Date Toro Silva MD [address] [place] [address] PCP - General Internal Medicine 07/09/19 10/30/24 Name, MD Oz [address] [place] [address] PCP - General Internal Medicine 10/31/24 Grazyna Alvarado Manufacturing Industrial EngineerReference Assistant 08/06/23 Wing [facility] 04/24/24 documented as of this encounter
== END 2024-11-23 14:51 | disposition home or self-care (01) ==
LOC: HO.RESP 14:50
PROVIDERS: PCP Internal Medicine; Visit Provider Internal Medicine
DX: R06.02 Shortness of breath (principal)
CPT/HCPCS: 94060; 94640; 94727; 94729

== ENCOUNTER → 2024-11-23 15:01 | Outpatient (BNV) | payer MEDICAID, SELFPAY | PROVIDERS: PCP Internal Medicine; Visit Provider Internal Medicine Pulmonary Disease | DX: R06.00 Dyspnea, unspecified (principal) | CPT/HCPCS: 94060; 94727; 94729 ==

== ENCOUNTER 2024-12-04 09:32 | Outpatient (AMB) | payer MEDICAID, SELFPAY ==
[2024-12-04 09:34] VITALS: BP 142/78; PULSE 104; O2SAT 97; BMI 39.1
--- NOTE | 2024-12-04 09:34 | A.OFFVIS_ITS ---
Vital Signs 12/04/24 09:34 Height 5 ft 4 in Weight 228 lb BMI 39.1 BP 142/78 H Blood Pressure Location Rt brachial Position Sitting Pulse 104 H Pulse Source Pulse Oximeter Pulse Oximetry (%) 97 Oxygen Delivery Method Room Air Intake Visit Reasons: Shortness of breath Roll Plugger Machine Operator Required: Yes Roll Plugger Machine Operator Name: Grazyna Mckinney Apolonia Information Interpreted: non-clinical & clinical Allergies shellfish derived Allergy (Severe, Verified 12/04/24 09:40) SWOLLEN THROAT apple (Apple) Allergy (Intermediate, Verified 12/04/24 09:40) SWELLING egg (Egg) Allergy (Intermediate, Verified 12/04/24 09:40) HIVES influenza virus vaccine, specific (Influenza Virus Vacc,Specific) Allergy (Intermediate, Verified 12/04/24 09:40) SWELLING lisinopril (Lisinopril) Allergy (Intermediate, Verified 12/04/24 09:40) Itching Penicillins Allergy (Mild, Verified 12/04/24 09:40) RASH nifedipine (From Procardia) Allergy (Unknown, Verified 12/04/24 09:40) UNKNOWN HPI HPI Shortness of breath: Details: 59-year-old gentleman, lifetime nonsmoker, with underlying history of CVA with residual right-sided hemiparesis including elevated right-sided hemidiaphragm, diastolic dysfunction, ARTEM, prior PE on anticoagulation now referred for evalua tion of pulmonary component to underlying dyspnea on exertion ongoing for several years. Patient also describes orthopnea some lower extremity edema. He denies wheezing, coughing, or sputum production. Patient denies family history of lung disease or personal history of exposure to industrial dusts. Patient does complain of significant environmental allergies, particularly in high pollen season. Patient does carry underlying diagnosis of asthma for which he has been using albuterol MDI with suboptimal control of his symptoms. [facility] Medical History Dysphagia Uncontrolled hypertension Benign skin lesion of cheek Pulmonary embolism Gastritis SUSY (acute kidney injury) Enteritis Epigastric pain Physical deconditioning SOB (shortness of breath) Colon cancer screening Uninodular goiter (nontoxic) Right knee pain Chronic pain Type 2 diabetes mellitus with polyneuropathy Upper abdominal pain H. pylori infection Obesity due to excess calories Blind right eye Goiter Cancer of eye Chronic kidney disease, stage 3 Hemiparesis affecting left side as late effect of cerebrovascular accident CHF (congestive heart failure) History of poliomyelitis GERD (gastroesophageal reflux disease) Morbid obesity Mood disorder Nasal polyps Angina of effort ARTEM (obstructive sleep apnea) Hemiplegia affecting dominant side Asthma Other pulmonary embolism and infarction Left ventricular hypertrophy Syncope Type 2 diabetes mellitus with hyperglycemia, with long-term current use of insulin Hyperlipidemia LDL goal <70 Essential hypertension Surgical History History of total knee arthroplasty Hx of colonoscopy History of excision of lesion (~09/09/23) History of carpal tunnel surgery History of right knee joint replacement History of esophagogastroduodenoscopy (EGD) History of cardiac catheterization Hx of knee surgery History of coronary artery stent placement Family History Father Stroke Brain cancer CVD (cardiovascular disease) Diabetes Mother Diabetes Social History Household Members: Other Household Members Other:: COURT CLERK Housing: Apartment Are you a primary manager of care to a significant other at home: No Do you presently have visiting nurse or other home services: Yes (COURT CLERK) Alcohol intake: never Patient Tobacco Use Status: Never used Tobacco Advance Directives Date on File: 11/08/20 service: No Review of Systems Const Denies daytime sleepiness, Denies excessive sweating, Denies fatigue, Denies fever(s), Denies lethargy, Denies malaise, Denies night sweats, Denies snoring and Denies weight loss Eyes Denies blurry vision and Denies itchy eyes ENT Denies nasal congestion, Denies post nasal drip, Denies sinus pain, Denies sinus pressure and Denies other ( Thrush) Card Denies chest pain, Reports pedal edema, Denies dyspnea, Reports dyspnea on exertion, Reports orthopnea and Denies paroxysmal nocturnal dyspnea Resp Denies cough, Denies hemoptysis, Denies excessive phlegm production, Denies dyspnea, Reports dyspnea on exertion, Denies snoring and Denies wheezing GI Denies abdominal pain and Denies heartburn Musc Denies myalgias, Denies arthralgias and Denies joint swelling Skin/Breast Denies rash Neuro Denies memory loss and Denies seizure-like activity Psych Denies abnormal sleep pattern, Denies anxiety and Denies memory loss Endo Denies excessive sweating, Denies fatigue and Denies heat intolerance Caesar/Lymph Denies easy bruising Aller/Immun Denies itchy eyes, Denies seasonal rhinorrhea and Denies wheezing Physical Exam Vital Signs: Last Vital Signs Pulse 104 H 12/04/24 09:34 BP 142/78 H 12/04/24 09:34 Pulse Ox 97 12/04/24 09:34 Oxygen Delivery Method Room Air 12/04/24 09:34 BMI result Body Mass Index 39.1 Const General: no acute distress and alert Nutritional Appearance: not obese Orientation/consciousness: Other orientation findings ( oriented) HEENT Head: Yes atraumatic Eyes General: appearance normal, both eyes and all related structures Sclerae: sclerae normal EOM: EOMs intact bilaterally Neck Neck: Yes supple Lymphatic: no lymphadenopathy noted Resp Effort & Inspection: normal respiratory effort and no use of accessory muscles Auscultation: clear to auscultation bilaterally Cardio Rate: regular rate Rhythm: regular rhythm Heart sounds: no gallops, no murmurs and no rubs Skin General skin exam: other ( warm) Extrem General: No clubbing, No cyanosis and Yes edema (Trace bilateral) Assessment & Plan Assessment & Plan (1) Dyspnea on exertion: Code(s): R06.09 - Other forms of dyspnea Category: Medical Plan: Results of pulmonary function test reviewed and essentially normal. He does have chronically elevated right hemidiaphragmatic is likely a consequence of his prior stroke. It appears that his symptoms mostly with exertion orthopnea related. Does have underlying asthma history with possible small contribution to his symptoms, will start on Breo and continue albuterol MDI/nebs. It appears that his symptoms mostly cardiac in etiology, will start on empiric low-dose diuresis with Lasix 20 mg daily. (2) Environmental allergies: Code(s): Z91.09 - Other allergy status, other than to drugs and biological substances Category: Medical Plan: Will obtain IgE level, CBC, and RAST panel for further evaluation. Orders: Orders Complete Blood Count Auto Diff Today Z91.09 - Other allergy status, other than to drugs and biological substances Resp Allergy Profile Region I Today Z91.09 - Other allergy status, other than to drugs and biological substances Medications: New furosemide (Lasix) 20 mg PO QAM 30 tabs 6RF Z91.09 - Other allergy status, other than to drugs and biological substances fluticasone furoate-vilanterol 200-25 mcg/dose (Breo Ellipta) 1 inh inhalation DAILY 1 ea 6RF Z91.09 - Other allergy status, other than to drugs and biological substances Coding Level of Care Code New Pt Level 4 (57124) Diagnoses Dyspnea on exertion R06.09 Environmental allergies Z91.09
--- OUTSIDE RECORDS SUMMARY | 2024-12-04 10:44 | XMS_ITS | Encounter Summary ---
Author Organization [employer] Address [address] [facility] [address] [place] [address] Care Team Providers Care Correctional Officer Chief Name Role Phone Toro Silva MD Primary Care Prov ider Name, Oz CARLTON Primary Care Provider [phone] Reason for Visit * Reason Onset Date Comments Durable Medical Equipment 12/20/2023 Encounter Details Date Type Department Care Team (Late st Contact Info) Description 12/20/2023 Telephone [facility] MEDICINE [address] [place], [place] [phone] Toro Silva MD [address] [place], [place] [phone] Durable Medical Equipment Social History Tobacco Use [...] 11:15 AM EST Office Visit [facility] MEDICINE [address] [place] [address] Name, MD Oz [address] [place] [address] documented as of this encounter Visit Diagnoses Not on filedocumented in this encounter Additional Health Concerns Assessment Noted Time PHQ-9 Depression Total Score: 11 023 9:53 AM EST documented as of this encounter Care Teams Correctional Officer Chief Relationship Specialty Start Date End Date Toro Silva MD [address] [place] [address] PCP - General Internal Medicine 07/09/19 10/30/24 Name, MD Oz [address] [place] [address] PCP - General Internal Medicine 10/31/24 Grazyna Alvarado Movie OperatorMedicine Technologist 08/06/23 [facility] 04/24/24 documented as of this encounter
--- OUTSIDE RECORDS SUMMARY | 2024-12-04 10:44 | XMS_ITS | Encounter Summary ---
Author Organization [employer] Address [address] [facility] 7t [place] [address] Care Team Providers Care Directory Compiler Name Role Phone Toro Silva MD Primary Care Prov ider Name, Oz CARLTON Primary Care Provider [phone] Reason for Visit * Reason Onset Date Comments c/b request 2022 Encounter Details Date Type Department Care Team ([facility] st Contact Info) Description 2022 Telephone C [facility] [address] [place], [place] [phone] Toro Silva MD [address] [place] [address] c/b request Social History Tobacco Use Types [...] for a call back. TC placed to [facility] Gastro no answer [...] - 10/19/2022 11:24 AM EDT Tc from [place] with [facility] requesting a call in regards to pt upcoming colonoscopy appointment on 10/21 Please contact joan at [phone] TC returned to [place] and a message was left for a [...] for a call back. TC placed to [facility] Gastro no answer left a message for Joan on voice mail gave [facility] direct number for a call back * Telephone Encounter - Gianna Antonio - 2022 10:37 AM EDT Tc from joan with [facility] requesting a call in regards to pt upcoming colonoscopy appointment on 10/21 Please contact joan at [phone] documented in this encounter Plan of Treatment Upcoming Encounters Date Type Department Care Team (Late st Contact Info) Description 01/25/2025 11:15 AM EST Office Visit [facility] MEDICINE [address] [place] [address] [phone] Name, MD Oz [address] [place] [address] documented as of this encounter Visit Diagnoses Not on filedocumented in this encounter Additional Health Concerns Assessment Noted Time PHQ-9 Depression Total Score: 0 07/02/19 9:45 AM EDT documented as of this encounter Care Teams Directory Compiler Relationship Specialty Start Date End Date Toro Silva MD [address] [place] [address] PCP - General Internal Medicine 07/09/19 10/30/24 Name, MD Oz [address] [place] [address] PCP - General Internal Medicine 10/31/24 Grazyna Alvarado Director Of Corporate CommunicationsEarly Childhood Education Specialist 08/06/23 [facility] 04/24/24 documented as of this encounter
--- OUTSIDE RECORDS SUMMARY | 2024-12-04 10:44 | XMS_ITS | Encounter Summary ---
Author Organization [employer] [facility] Address [address] [facility] 7t [place] [address] Care Team Providers Care Ultrasound Technologist Sonographer Name Role Phone Toro Silva MD Primary Care Prov ider Oz Willard MD Primary Care Provider [phone] Reason for Visit * Reason Comments Med Refill Encounter Details Date Type Department Care Team ([facility] Contact Info) Description 03/03/2022 Refill [facility] MED & PEDS [address] [place], [place] [phone] Toro Silva MD [address] [place], [place] [phone] Chronic pain syndrome Social History Tobacco Use [...] Upcoming Encounters Date Type Department Care Team ([facility] Contact Info) Description 01/25/2025 11:15 AM EST Office Visit [facility] MEDICINE 230 [place], [place] [phone] Oz Willard MD [address] [place] [address] documented as of this encounter Visit Diagnoses Diagnosis Chronic pain syndrome documented in this encounter Care Teams Ultrasound Technologist Sonographer Relationship Specialty Start Date End Date Toro Silva MD [address] [place] [address] PCP - General Internal Medicine 07/09/19 10/30/24 [place], MD Oz [address] [place] [address] PCP - General Internal Medicine 10/31/24 Grazyna Alvarado Teller VaultPole Shaver 08/06/23 [facility] documented as of this encounter
--- OUTSIDE RECORDS SUMMARY | 2024-12-04 10:44 | XMS_ITS | Encounter Summary ---
Author Organization [employer] Address [address] [facility] 7t [place] [address] Care Team Providers Care Slitter Creaser Slotter Helper Name Role Phone Toro Silva MD Primary Care Prov ider NameOz MD Primary Care Provider [phone] Reason for Visit * Reason Comments Med Refill Encounter Details Date Type Department Care Team (Late Contact Info) Description 10/16/2022 Refill [facility] MEDICINE [address] [place] [address] [phone] Toro Silva MD [address] [place] [phone] Chronic pain syndrome Social History Tobacco Use [...] Description 01/25/2025 11:15 AM EST Office Visit [facility] MEDICINE [address] [place] [address] [phone] Name, MD Oz [address] [place] [address] documented as of this encounter Visit Diagnoses Diagnosis Chronic pain syndrome documented in this encounter Additional Health Concerns Assessment Noted Time PHQ-9 Depression Total Score: 0 07/02/19 9:45 AM EDT documented as of this encounter Care Teams Slitter Creaser Slotter Helper Relationship Specialty Start Date End Date Toro Silva MD 505 [place] [address] PCP - General Internal Medicine 07/09/19 10/30/24 Oz Willard MD 230 [place] [address] PCP - General Internal Medicine 10/31/24 Grazyna Alvarado Traffic Sign Erection SupervisorRejoiner 08/06/23 [facility] 04/24/24 documented as of this encounter
--- OUTSIDE RECORDS SUMMARY | 2024-12-04 10:44 | XMS_ITS | Encounter Summary ---
Author Organization [employer] Address [address] [facility] 7t [place] [address] Care Team Providers Care Commercial Announcer Name Role Phone Name, Oz CARLTON Primary Care Provider [phone] Reason for Visit * Reason Onset Date Comments [facility] paperwork 11/28/2024 Durable Medical Equipment 11/28/2024 Encounter Details Date Type Department Care Team ([facility] st Contact Info) Description 11/28/[address] [facility] MEDICINE [address] [place], [place] [phone] Name, MD Oz [address] [place] [address] [facility] paperwork; Durable Medical Equipment Social History Tobacco Use [...] encounter Miscellaneous Notes * Telephone Encounter - Aura Ray - 11/29/2024 2:58 PM EDT medical necessity form received and sent to pcp for signature via D[employer]. Once signed, will befaxed to [facility]MS and sent to scan. * Telephone Encounter - Silvana Underwood - 11/28/2024 8:37 AM EDT Tc from Barbara at [employer] [facility] stating she is faxing over [employer] paperwork that provider needs to fill out all the way in order for DME order to be finalized Contact Barbara at [phone] documented in this encounter Plan of Treatment Upcoming Encounters Date Type Department Care Team (Late st Contact Info) Description 01/25/2025 11:15 AM EST Office Visit [facility] MEDICINE [address] [place] [address] Name, MD Oz [address] [place] [address] documented as of this encounter Visit Diagnoses Not on filedocumented in this encounter Additional Health Concerns Assessment Noted Time PHQ-9 Depression Total Score: 4 11/01/19 25 10:57 AM EDT documented as of this encounter Care Teams Commercial Announcer Relationship Specialty Start Date End Date Name, MD Oz [address] [place] [address] PCP - General Internal Medicine 10/31/24 Grazyna Alvarado Quality ConsultantVp Of Marketing 08/06/23 Wing [facility] 04/24/24 documented as of this encounter
--- OUTSIDE RECORDS SUMMARY | 2024-12-04 10:44 | XMS_ITS | Encounter Summary ---
Demographics Address [address] [facility] [address] [place] [address] Mobile Phone Home Phone Work Phone Preferred Language Frisian; Castilian Marital Status Anglican Affiliation Unknown Race Other Race Ethnic Group or Author Organization [facility] Address [address] [place] [address] Phone Care Team Providers Care Biodiesel Engineering Manager Name Role Phone Christina Nelson MD Primary Care Provider [phone] Toro Silva MD Primary Care Prov ider [facility] Primary Care Provider Encounter Details Date Type Department Care Team (Late st Contact Info) Description 06/22/2019 Procedure Pass [facility] - MRI, [facility] [address] [place] [address] Social History Tobacco Use Types Packs/Day Years [...] on filedocumented in this encounter Care Teams Biodiesel Engineering Manager Relationship Specialty Start Date End Date Christina Nelson MD [address] [facility] [address] [place] [address] PCP - General Family Medicine 02/03/19 09/17/20 Toro Silva MD [address] [place] [address] PCP - General Internal Medicine 09/18/20 03/04[facility]21 [facility] [address] [place] [address] PCP - General 03/05/21 documented as of this encounter Additional Source Comments The information contained in this document represents components of the legal health record. It is not the complete legal health record.[facility]
--- OUTSIDE RECORDS SUMMARY | 2024-12-04 10:44 | XMS_ITS | Encounter Summary ---
Author Organization [employer] Address [address] [facility] 7t [place] [address] Care Team Providers Care Steward/Stewardess Bath Name Role Phone Toro Silva MD Primary Care Prov ider Name, Oz CARLTON Primary Care Provider [phone] Reason for Visit * Reason Onset Date Comments Medication Question 03/07/2024 Encounter Details Date Type Department Care Team ([facility] st Contact Info) Description 03/07/[address] [facility] MED & PEDS [address] [place], [place] [phone] Toro Silva MD 505 [place] [address] Medication Question Social History Tobacco Use Types [...] TC from erum regarding below message . Nanotechnology Engineering Technologist sent a secure chat to provider . Per Provider hold 2 days prior procedure, restart 1 day after * Telephone Encounter - Courtney Cortes - 03/07/2024 2:17 PM EST Tc [place] [facility] stating pt is scheduled for colonoscopy on 03/16/24 and Erum would like a call back to advise on holding off on medication Xarelto 2.5 MG tablet Contact Erum [phone] opt [phone] documented in this encounter Plan of Treatment Upcoming Encounters Date Type Department Care Team (Late st Contact Info) Description 01/25/2025 11:15 AM EST Office Visit [facility] MEDICINE [address] [place] [address] Name, MD Oz [address] [place] [address] documented as of this encounter Visit Diagnoses Not on filedocumented in this encounter Additional Health Concerns Assessment Noted Time PHQ-9 Depression Total Score: 11 023 9:53 AM EST documented as of this encounter Care Teams Steward/Stewardess Bath Relationship Specialty Start Date End Date Toro Silva MD [address] [place] [address] PCP - General Internal Medicine 07/09/19 10/30/24 Name, MD Oz [address] [place] [address] PCP - General Internal Medicine 10/31/24 Grazyna Alvarado Senior Search Marketing AnalystLive Ammunition Inspector 08/06/23 [facility] 04/24/24 documented as of this encounter
--- OUTSIDE RECORDS SUMMARY | 2024-12-04 10:44 | XMS_ITS | Encounter Summary ---
Author Organization [employer] [facility] Address [address] [facility] 7t [place] [address] Care Team Providers Care Offal Baler Name Role Phone Toro Silva MD Primary Care Prov ider NameOz MD Primary Care Provider [phone] Encounter Details Date Type Department Care Team (Late Contact Info) Description 03/05/2022 Orders Only [facility] MEDICINE [address] [place] [address] Toro Silva MD [address] [place] [address] [phone] Disorder of vision (Primary Dx) Social History [...] 11:15 AM EST Office Visit [facility] MEDICINE [address] [place] [phone] Oz Willard MD [address] [place] [address] documented as of this encounter Procedures Procedure Name Priority Date/Time Associated Diagnosis Comments HEMATOXYLIN AND EOSIN STAIN Routine 10/21/2022 1:32 PM EDT Disorder of vision GLUCOSE, WHOLE BLOOD Routine 10/21/2022 11:49 AM EDT Disorder of vision documented in this encounter Results * Hematoxylin and Eosin Stain (10/21/2022 1:32 PM EDT) 10/21/2022 1:32 PM EDT 10/21/2022 3:10 PM EDT [facility] LABS - 10/22/2022 2:46 PM EDT ----- ------- Name: Davon Gonzalez Age/Sex: 57/M : 1965 Unit#: [id number] Attend Dr: Valente Drake MD Re10/21/22 Status: [facility] Location: [facility] Disch: ----- ------- SPEC : [id number] RECD: 10/21/22 STATUS: LUIS RESriram NUM: [id number] ARLYN: 10/21/22 [facility] DR: Valente Drake MD ENTERED: 10/21/22 [...] formalin. CEDS Copies To: Toro Silva MD [address] [place] [phone] CONTINUED ON NEXT PAGE ----- ------- Name: Davon Gonzalez Age/Sex: 57/M : 1965 Unit#: [id number] Attend Dr: Valente Drake MD Re10/21/22 Status: [facility] Location: [facility] Disch: ----- ------- SPEC : [id number] RECD: 10/21/22 STATUS: LUIS SÁNCHEZ NUM: [id number] ARLYN: 10/21/22 [facility] DR: Valente Drake MD ENTERED: 10/21/22-1510 SP TYPE: Surgical OTHR DR: Toro Silva MD ORDERED: HE Stain/6, Gross Micro L4/2 Copies To: (Continued) Valente Drake MD [address] [place] [address] [place] [address] ----- ------- Signed (signature on file) Jennifer Yoly 10/22/22 1446 ----- ------- END OF REPORT [facility] External Provider LAB BLO OD ORDERABLES Final Result Performing Organization Address [facility] Co de Phone Number [facility] [address] [place] [phone] * (ABNORMAL) Glucose, Whole Blood (10/21/2022 11:49 AM EDT) Glucose, Whole Blood 143(H) 60 - 115 mg/dL [facility] Comment:METER #: [id number] 10/21/2022 11:4 9 AM EDT 10/21/2022 11:52 AM EDT [facility] External Provider LAB BLO OD ORDERABLES Final Result Performing Organization Address [facility] Co de Phone Number [facility] [address] [place] [address] [phone] documented in this encounter Visit Diagnoses Diagnosis Disorder of vision- Primary documented in this encounter Care Teams Offal Baler Relationship Specialty Start Date End Date Toro Silva MD 505 [place] [address] PCP - General Internal Medicine 07/09/19 10/30/24 Oz Willard MD [address] [place] [address] PCP - General Internal Medicine 10/31/24 Grazyna Alvarado Agility InstructorRoom Inspector 08/06/23 [facility] 04/24/24 documented as of this encounter
--- OUTSIDE RECORDS SUMMARY | 2024-12-04 10:44 | XMS_ITS | Encounter Summary ---
Demographics Address [address] [place] [address] Mobile Phone Home Phone Work Phone Preferred Language Uzbek; Castilian Marital Status Uatsdin Affiliation Unknown Race Other Race Ethnic Group or Author Organization [facility] Address [address] [place] [address] Phone Care Team Providers Care Director Government Name Role Phone Christina Nelson MD Primary Care Provider [phone] Toro Silva MD Primary Care Prov ider [facility] Primary Care Provider Encounter Details Date Type Department Care Team (Late st Contact Info) Description 06/22/2019 Procedure Pass [facility] Imaging - MRI, [facility] [address] [place] [address] Social History Tobacco Use Types Packs/Day Years [...] filedocumented in this encounter Care Teams Director Government Relationship Specialty Start Date End Date Christina Nelson MD [address] [facility] [address] [place] [address] PCP - General Family Medicine 02/03/19 09/17/20 Toro Silva MD [address] [place] [address] PCP - General Internal Medicine 09/18/20 03/04/21 [facility] [address] [place] [address] PCP - General 03/05/21 documented as of this encounter Additional Source Comments The information contained in this document represents components of the legal health record. It is not the complete legal health record.[facility]
--- OUTSIDE RECORDS SUMMARY | 2024-12-04 10:44 | XMS_ITS | Encounter Summary ---
Author Organization [employer] Address [address] [facility] 7t [place] [address] Care Team Providers Care Area Director Name Role Phone Toro Silva MD Primary Care Prov ider Name, Oz CARLTON Primary Care Provider [phone] Reason for Visit * Reason Comments Med Refill Encounter Details Date Type Department Care Team ([facility] st Contact Info) Description 02/22/2024 Refill [facility] [address] [place], [place] [phone] Toro Silva MD [address] [place] [address] [phone] Primary hypertension Social History Tobacco Use Types [...] Description 01/25/2025 11:15 AM EST Office Visit [facility] [address] [place] [address] Oz Willard MD [address] [place] [address] documented as of this encounter Visit Diagnoses Diagnosis Primary hypertension Unspecified essential hypertension documented in this encounter Additional Health Concerns Assessment Noted Time PHQ-9 Depression Total Score: 11 023 9:53 AM EST documented as of this encounter Care Teams Area Director Relationship Specialty Start Date End Date Toro Silva MD [address] [place] [address] PCP - General Internal Medicine 07/09/19 10/30/24 Oz Willard MD [address] [place] [address] PCP - General Internal Medicine 10/31/24 Grazyna Alvarado Round Cutter OperatorWell Site Drilling Engineer 08/06/23 [facility] 04/24/24 documented as of this encounter
--- OUTSIDE RECORDS SUMMARY | 2024-12-04 10:44 | XMS_ITS | Encounter Summary ---
Demographics Address [address] [place] [address] Mobile Phone Home Phone Work Phone Preferred Language Slovak; Castilian Marital Status Temple Affiliation Unknown Race Other Race Ethnic Group or Author Organization [facility] Address [address] [facility] [address] [place] [address] Phone Care Team Providers Care Equipment Mechanic Name Role Phone Christina Nelson MD Primary Care Provider [phone] Toro Silva MD Primary Care Prov ider [facility] Primary Care Provider Encounter Details Date Type Department Care Team (Late st Contact Info) Description 07/12/2019 Procedure Pass [facility] Imaging - [facility] [place] [address] [place] [address] Social History Tobacco Use Types Packs/Day Years [...] on filedocumented in this encounter Care Teams Equipment Mechanic Relationship Specialty Start Date End Date Christina Nelson MD [address] [facility] [address] [place] [address] PCP - General Family Medicine 02/03/19 09/17/20 Toro Silva MD [address] [place] [address] PCP - General Internal Medicine 09/18/20 [facility]04[facility] [address] [place] [address] PCP - General 03/05/21 documented as of this encounter Additional Source Comments The information contained in this document represents components of the legal health record. It is not the complete legal health record.[facility]
--- OUTSIDE RECORDS SUMMARY | 2024-12-04 10:44 | XMS_ITS | Encounter Summary ---
Author Organization [employer] Address [address] [facility] 7t [place] [address] Care Team Providers Care Pickle Pumper Name Role Phone Toro Silva MD Primary Care Prov ider Name, Oz CARLTON Primary Care Provider [phone] Reason for Visit * Reason Onset Date Comments PT-1 01/17/2024 Encounter Details Date Type Department Care Team (Late st Contact Info) Description 01/17/2024 Telephone [facility] MEDICINE [address] [place] [address] Toro Silva MD [address] [place] [address] PT-1 Social History Tobacco Use Types Packs/Day [...] Y/N: Yes Provider name or facility name: [facility] Escort needed: Y/N: Yes Do you have a wheelchair: Y/N: No If yes- Manual or electric: Visits: (1 x 3 months) documented in this encounter Plan of Treatment Upcoming Encounters Date Type Department Care Team (Late st Contact Info) Description 01/25/2025 11:15 AM EST Office Visit [facility] MEDICINE [address] [place] [address] Name, MD Oz 230 [place] [address] documented as of this encounter Visit Diagnoses Not on filedocumented in this encounter Additional Health Concerns Assessment Noted Time PHQ-9 Depression Total Score: 11 023 9:53 AM EST documented as of this encounter Care Teams Pickle Pumper Relationship Specialty Start Date End Date Toro Silva MD [address] [place] [address] PCP - General Internal Medicine 07/09/19 10/30/24 Name, MD Oz [address] [place] [address] PCP - General Internal Medicine 10/31/24 Grazyna Alvarado Headliner InstallerGenerator Man 08/06/23 [facility] documented as of this encounter
--- OUTSIDE RECORDS SUMMARY | 2024-12-04 10:44 | XMS_ITS | Encounter Summary ---
Author Organization [facility] Address [address] [facility] 7t [place] [address] Care Team Providers Care Newspaper Photojournalist Name Role Phone Toro Silva MD Primary Care Prov ider Oz Willard MD Primary Care Provider [phone] Encounter Details Date Type Department Care Team (Latest Contact Info) Description 04/21/2019 Abstract [facility] CONVERSIONS Dental, Provider, DDS Social History [...] 11:15 AM EST Office Visit [facility] MEDICINE [address] [place] [address] Oz Willard MD [address] [place] [address] documented as of this encounter Visit Diagnoses Not on filedocumented in this encounter Care Teams Newspaper Photojournalist Relationship Specialty Start Date End Date Toro Silva MD [address] [place] [address] PCP - General Internal Medicine 07/09/19 10/30/24 Oz Willard MD 230 [place] [address] PCP - General Internal Medicine 10/31/24 Grazyna Alvarado Linen TechTax Professional 08/06/23 Wing [facility] 04/24/24 documented as of this encounter
--- OUTSIDE RECORDS SUMMARY | 2024-12-04 10:45 | XMS_ITS | Encounter Summary ---
Author Organization [employer] Address [address] [facility] 7t [place] [address] Care Team Providers Care Field Representatives Director Name Role Phone Toro Silva MD Primary Care Prov ider Name, Oz CARLTON Primary Care Provider [phone] Reason for Visit * Reason Onset Date Comments Durable Medical Equipment 04/12/2024 Encounter Details Date Type Department Care Team ([facility] st Contact Info) Description 04/12/2024 Telephone [facility] [address] [place], [place] [phone] Toro Silva MD [address] [place] [address] Durable Medical Equipment Social History Tobacco Use [...] Please provide DX to support. [facility] pt needs new crutches (current ones are worn out) * Telephone Encounter - Courtney Cortes - 04/12/2024 11:37 AM EST Tc from kristopher rTujillo stating pt needs new crutches (current ones are worn out) documented in this encounter Plan of Treatment Upcoming Encounters Date Type Department Care Team (Late st Contact Info) Description 01/25/2025 11:15 AM EST Office Visit [facility] MEDICINE [address] [place] [address] Name, MD Oz 230 [place] [address] documented as of this encounter Visit Diagnoses Not on filedocumented in this encounter Additional Health Concerns Assessment Noted Time PHQ-9 Depression Total Score: 11 023 9:53 AM EST documented as of this encounter Care Teams Field Representatives Director Relationship Specialty Start Date End Date Toro Silva MD [address] [place] [address] PCP - General Internal Medicine 07/09/19 10/30/24 Name, MD Oz [address] [place] [address] PCP - General Internal Medicine 10/31/24 Grazyna Alvarado Med Surg RnDigital Media Sales Consultant 08/06/23 Wing [facility] 04/24/24 documented as of this encounter
--- OUTSIDE RECORDS SUMMARY | 2024-12-04 10:45 | XMS_ITS | Clinical Summary ---
Demographics Address [address] [place] [address] [address] [place] [address] Home Phone Home Phone Preferred Language es Marital Status Unknown Islam Affiliation Unknown Race Unknown Ethnic Group Unknown Author Organization [facility], Address [address] [place] [address] [place] [address] Phone Care Team Providers Care Sandwich Wrapper Name Role Phone Toro Bravo Primary Care Provider Allergies Active Allergy Reactions Criticality Noted Date Comments Apple Juice 05/03/2019 Egg Protein-Containing Drug Products 05/03/2019 Lisinopril 05/03/2019 Nifedipine 05/03/2019 Penicillins 08/17/2019 Shellfish Protein-Containing Drug Products 05/03/2019 Medications amLODIPine (NORVASC) 10 MG tablet Take [...] 0 Active ergocalciferol (VITAMIN D-2) 1.25 MG (82431 UT) capsule TAKE 1 CAPSULE BY MOUTH [...] Ophthalmology Exam 11/20/2020 11/21/2019 Influenza Vaccine (#1) 2024 Hepatitis B Vaccine Aged Out No longe r eligible based on patient's age to complete this topic Insurance [address] [place] [address] Medicaid [place] [address] [place] [address] * Guarantor: Davon Gonzalez Account Type Relation to Patient Date of Phone Billing Address Personal/Family Self 1965 [address] [place] [address] Care Teams Sandwich Wrapper Relationship Specialty Start Date End Date Toro Bravo PCP - General Internal Medicine 09/06/19
--- OUTSIDE RECORDS SUMMARY | 2024-12-04 10:45 | XMS_ITS | Encounter Summary ---
Author Organization [employer] Address [address] 7t [place] [address] Care Team Providers Care Gas Attendant Name Role Phone Toro Silva MD Primary Care Prov ider NameOz MD Primary Care Provider [phone] Encounter Details Date Type Department Care Team (Late st Contact Info) Description 05/22/2023 Orders Only [facility] MEDICINE [address] [place], [place] [phone] Provider, MD Harley Social History Tobacco Use [...] the past 12 months, has t he [employer], gas, oil or water company threatened to [...] 11:15 AM EST Office Visit [facility] MEDICINE [address] [place] [address] Oz Willard MD [address] [place] [address] documented as of this encounter Procedures Procedure [...] documented as of this encounter Care Teams Gas Attendant Relationship Specialty Start Date End Date Toro Silva MD [address] [place] [address] PCP - General Internal Medicine 07/09/19 10/30/24 Oz Willard MD [address] [place] [address] PCP - General Internal Medicine 10/31/24 Grazyna Alvarado Pouncing Lathe OperatorInventory Analyst 08/06/23 [facility] 04/24/24 documented as of this encounter
--- OUTSIDE RECORDS SUMMARY | 2024-12-04 10:45 | XMS_ITS | Clinical Summary ---
Author Organization [employer] Address [address] [facility] 7t [place] [address] Care Team Providers Care Human Resources Department Supervisor Name Role Phone Name, Oz CARLTON Primary Care Provider [phone] Allergies Active Allergy Reactions Criticality Noted Date [...] disease, with long-term current use of insulin ([facility]) TEST BLOOD SUGAR FOUR TIMES DAILY [...] (eight) hours. 75 mL 3 Active Nebulizers [facility] Use nebulizer as instructed 1 each Active [...] THE EVENING WITH FOOD 180 tablet 1 025 Active atorvastatin (Lipitor) 80 MG tabletIndication s:Mixed [...] EVENING, AND BEDTIME 90 capsule 025 Active gabapentin (Neurontin) 100 MG capsuleIndicatio [...] pain. Initially seen in the ER at [facility] 04/16/2024 , admitted with c/o septic joint, [...] (08/04/2022 2:39 PM EDT): Followed by cardiology [facility] in place 01/07/2018 Hemiparesis affecting left s jose alfredo as late effect of cerebrovascular accident (CMS/HCC) 01/07/2018 History of coronary artery stent placement [...] for guidance of therapy Continuous opioid dependence ([facility]) 8 Nasal polyp 04/06/2017 Cerebrovascular accident ([facility]) 04/06/2017 CKD stage 3 due to type [...] reflux disease without esophagi tis 04/06/2017 Hemiparesis ([facility]) 04/06/2017 Primary hypertension 04/06/2017 Assessment & Plan [...] 3 months Mood disorder 04/06/2017 Morbid obesity (CMS/HCC) 04/06/2017 Obstructive sleep apnea syndrome 04/06/2017 Positive [...] Eye exam pending to be done at [place] Assessment & Plan (04/07/2023 1:46 PM EST): [...] Encounters Date Type Department Care Team Description 11/28/[address] [address] Oz Willard MD Durable Medical Equipment (Forearm crutches) 11/28/[address] [address] Oz Willard MD [facility] paperwork; Durable Medical Equipment 11/20/[address] [address] Oz Willard MD Neuropathy 11/15/2024 Orders Only GENERIC EXTERNAL DATA DEPARTMENT Provider, Generic External Data 11/06/[address] [address] Oz Willard MD Durable Medical Equipment 10/31/2024 10:15 AM EDT Office Visit [address] [address] Oz Willard MD Type 2 diabetes mellitus with stage 3b chronic kidney disease, with long-term current use of insulin ([facility]) (Primary Dx); Chronic pain of right knee; Encounter for immunization; Blindness and low vision 10/31/[address] [address] Oz Willard MD 10/31/2024 Travel 10/30/[address] [address] Caleb Macdonald [place] chart prep 10/24/2024 Patient Outreach [facility] MED & PEDS [address] [place] [address] Toro Silva MD Pre-visit Planning ([facility] unable to reach [facility] ) 10/23/2024 Refill [facility] MED & PEDS [address] [place] [address] Toro Silva MD CKD stage 3 due to type 2 diabetes mellitus (CMS/HCC) 10/18/2024 Telephone [facility] MED & PEDS [address] [place] [address] Toro Silva MD 10/10/2024 Refill [facility] MED & PEDS [address] [place] [address] Toro Silva MD Neuropathy 09/11/2024 Refill [facility] MED & PEDS [address] [place] [address] Toro Silva MD Neuropathy from Last 3 [...] Description 01/25/2025 11:15 AM EST Office Visit [facility] MEDICINE [address] [place] [address] Name, MD Oz [address] [place] [address] Health Maintenance Due Date Last Done Comments [...] (#1) 2024 04/18/2007 Lipid Panel 12/14/2024 12/15/2023, 04/0 06/2023, 05/11/2022, Additional history exists Diabetes: Foot Exam [...] without long-term current use of insulin (CMS/HCC) from Last 3 Months or Most Recently Relevant to Health Maintenance Results * Glucose, Whole Blood (11/15/2024 2:32 PM EDT) Glucose, Whole Blood 101 60 - 115 mg/dL [facility] Comment:METER #: [id number] 0Testing performed in the Endocrinology Department [address] , [address], [facility]. 11/15/2024 2:32 PM EDT 11/15/2024 2:37 PM EDT Generic External Data Provider LAB BLOOD ORDERAB LES Final Result [facility] [address] [place] [address] [phone] * (ABNORMAL) POCT Hgb A1c (10/31/2024 10:28 AM EDT) Hemoglobin A1C 6.5(A) 4.0 - 5.7 % QC Media Lot # [id number] Lot# Expiration Date [id number] Blood 10/31/2024 10:2 8 AM EDT us Oz Willard MD POINT OF CARE TEST ENTER/EDIT OR DERABLES Final Result * POCT Glucose (10/31/2024 10:24 AM EDT) Pathologist [facility] Glucose Blood, POC 182 60 - 200 mg/dL QC Media Lot # [id number] Lot# Expiration Date ,726 Blood Capillary blood specimen / Unknown 10/31/2024 10:24 AM EDT us Oz Willard MD POINT OF CARE TEST ENTER/EDIT OR DERABLES Final Result * Hm Colonoscopy (03/16/2024) Pathologist [facility] Colonoscopy Normal Normal 03/16/2024 us Oz Willard MD HEALTH MAINTENANCE Final Result * (ABNORMAL) Lipid Panel, Standard (12/15/2023 10:01 AM EST) Pathologist [facility] Triglycerides 141 <150 mg/dL [facility] Comment:Desirable Triglyceri de: less than 150 mg/dLBorderline High Triglyceride 150-199 mg/dLHigh Triglyceride: 200-499 mg/dLVery High Triglyceride: greater than or equal to 5OO mg/dL Cholesterol 106 <200 mg/dL [facility] Comment:Desirable Cholestero l: less than 200 mg/dLBorderline High Cholesterol: 200-239 mg/dLHigh Cholesterol: greater than 239 mg/dL LDL Cholesterol Calculated 45 <100 mg/dL [facility] Comment:Desirable LDL: less than 100 mg/dLNear Optimal/Above Optimal LDL: 110- 129 mg/dLBorderline High LDL: 130-159 mg/dLHigh LDL: 160-189 mg/dLVery High LDL: greater than or equal to 190 mg/dL HDL Cholesterol 33(L) >40 mg/dL [facility] Comment:Desirable HDL: great er than 40 mg/dL Note: This HDL assay may give artificially low results in patients with liver disease. Blood Venous blood specimen / Unknown 12/15/2023 10:01 AM EST 12/15/2023 11:32 AM EST Toro Perez MD LAB BLOOD ORDERABL ES Final Result [facility] [address] [place] [phone] * HIV-1 RNA, Quantitative, Real-Time PCR with Reflex to Genotype (RTI, PI, Integrase) (05/11/2022 9:42 AM EDT) Pathologist [facility] HIV 1 RNA, QN PCR NOT DETECTED copies/mL [facility], HIV 1 RNA, QN PCR NOT DETECTED Log copies/mL [facility], Comment: REFERENCE RANGE: NOT DETECTED copies/mL NOT DETECTED Log copies/mL This test was performed using Real-Time Polymerase Chain Reaction. Reportable range is 20 to 10,000,000 copies/mL (1.30-7.00 Log copies/mL). 05/11/2022 9:42 AM EDT 05/11/2022 9:43 AM EDT Narrative [facility] - 05/14/2022 12:55 AM EDT FASTING:YES FASTING: YES Toro Perez MD LAB BLOOD ORDERABL ES Final Result Performing Organization Address [facility] Co de Phone Number [facility] [address], [facility] [place] [address] [facility], [address] [place] [address] * Hepatitis C Antibody with Reflex to HCV, RNA, Quantitative, Real-Time PCR (05/11/2022 9:42 AM EDT) Hepatitis C Antibody NON-REACT TAMERA NON-REACT TAMERA [facility] [place] [facility] Index 0.08 <1.00 ScalIT Comment: HCV antibody was non-reactive. There is no laboratory evidence of HCV infection. In most cases, no further action is required. However, if recent HCV exposure is suspected, a test for HCV RNA (test code 25289) is suggested. For additional information please refer to http://education.PointCare/faq/YUY35i6 (This link is being provided for informational/ educational purposes only.) Blood Venous blood specimen / Unknown 05/11/2022 9:42 AM EDT 05/11/2022 9:43 AM EDT Narrative [facility] - 05/14/2022 12:55 AM EDT FASTING:YES FASTING: YES Toro Perez MD LAB BLOOD ORDERABL ES Final Result Performing Organization Address [facility] Co de Phone Number [facility] [address], [facility] [place] [address] [facility] [place] [employer] [address] [place] [address] from Last 3 Months or Most Recently Relevant to Health Maintenance Insurance * Guarantor: Davon Gonzalez Account Type Relation to Patient Date of Phone Billing Address Personal/Family Self [address] [place] [address] [facility] C[facility] * Guarantor: Davon Gonzalez Account Type Relation to Patient Date of Phone Billing Address Personal/Family Self [address] [place] [address] * Guarantor: Davon Gonzalez Account Type Relation to Patient Date of Phone Billing Address Personal/Family Self [address] [place] [address] * Guarantor: Davon Gonzalez Account Type Relation to Patient Date of Phone Billing Address Personal/Family Self [address] [place] [address] Care Teams Human Resources Department Supervisor Relationship Specialty Start Date End Date Name, MD Oz [address] [place] [address] PCP - General Internal Medicine 10/31/24 Grazyna Alvarado Warp Dyeing TenderRelationship Banker 08/06/23 Wing [facility] 04/24/24
--- OUTSIDE RECORDS SUMMARY | 2024-12-04 10:45 | XMS_ITS | Encounter Summary ---
Author Organization [employer] Address [address] [facility] 7t [place] [address] Care Team Providers Care Preventive Maintenance Engineer Name Role Phone Toro Silva MD Primary Care Prov ider NameOz MD Primary Care Provider [phone] Reason for Visit * Reason Comments Med Refill Encounter Details Date Type Department Care Team (Late Contact Info) Description 07/11/2022 Refill [facility] MEDICINE [address] [place] [phone] Toro Silva MD [address] [place] [address] Chronic pain syndrome Social History Tobacco Use [...] Description 01/25/2025 11:15 AM EST Office Visit [facility] MEDICINE [address] [place] [address] [phone] Name, MD Oz [address] [place] [phone] documented as of this encounter Visit Diagnoses Diagnosis Chronic pain syndrome documented in this encounter Additional Health Concerns Assessment Noted Time PHQ-9 Depression Total Score: 0 07/02/19 9:45 AM EDT documented as of this encounter Care Teams Preventive Maintenance Engineer Relationship Specialty Start Date End Date Toro Silva MD [address] [place] [address] PCP - General Internal Medicine 07/09/19 10/30/24 Oz Willard MD [address] [place] [address] PCP - General Internal Medicine 10/31/24 Grazyna Alvarado Water Resource EngineerAccount Financial Manager 08/06/23 Wing [facility] 04/24/24 documented as of this encounter
--- OUTSIDE RECORDS SUMMARY | 2024-12-04 10:45 | XMS_ITS | Clinical Summary ---
Demographics Address [address] [facility] [address] [place] [address] Mobile Phone Home Phone Work Phone Preferred Language Croatian; Castilian Marital Status Christian Affiliation Unknown Race Other Race Ethnic Group or Author Organization [facility] Address [address] [facility] [address] [place] [address] Phone Care Team Providers Care Naturopathic Doctor Name Role Phone [facility], [facility] Primary Care Provider Allergies Active Allergy Reactions [...] EDT) CREATININE 1.91(H) 0.6 - 1.5 mg/dL [facility] EGFR 39(L) >59 mL/min/1. 73m2 [facility] Comment:Estimated glomerular filtration rate calculated using the CKD-EPI equation. 08/17/2019 1:14 PM EDT 08/17/2019 2:33 PM EDT Isabel Forrest MD LAB BLOOD [place]AB[place] [address], [facility] from Last 3 Months or Most Recently Relevant to Health Maintenance Insurance [employer] [address] [address] C[employer] [place] [place] [id number] C3 A[facility] C3 ACO Care Teams Naturopathic Doctor Relationship Specialty Start Date End Date [facility] [address] [place] [address] PCP - General 03/05/21 Additional Source Comments The information contained in this document represents components of the legal health record. It is not the complete legal health record.[facility]
--- OUTSIDE RECORDS SUMMARY | 2024-12-04 10:45 | XMS_ITS | Encounter Summary ---
Author Organization [employer] Address [address] [facility] 7t [place] [address] Care Team Providers Care Receptionist/Telephone Operator Name Role Phone Toro Silva MD Primary Care Prov ider Name, Oz CARLTON Primary Care Provider [phone] Reason for Visit * Reason Onset Date Comments Med Refill 09/29/2023 Encounter Details Date Type Department Care Team (Late st Contact Info) Description 09/29/2023 Telephone [facility] MEDICINE [address] [place], [place] [phone] Toro Silva MD [address] [place] [address] Med Refill Social History Tobacco Use Types [...] 100 MG capsule To be sent to: [facility] documented in this encounter Plan of Treatment Upcoming Encounters Date Type Department Care Team (Late st Contact Info) Description 01/25/2025 11:15 AM EST Office Visit [facility] MED[facility]INE [address] [place] [address] Name, MD Oz [address] [place] [address] documented as of this encounter Visit Diagnoses Not on filedocumented in this encounter Additional Health Concerns Assessment Noted Time PHQ-9 Depression Total Score: 11 023 9:53 AM EST documented as of this encounter Care Teams Receptionist/Telephone Operator Relationship Specialty Start Date End Date Toro Silva MD [address] [place] [address] PCP - General Internal Medicine 07/09/19 10/30/24 Name, MD Oz [address] [place] [address] PCP - General Internal Medicine 10/31/24 Grazyna Alvarado Stroke CoordinatorNuclear Fuel Enrichment Technician 08/06/23 Wing [facility] 04/24/24 documented as of this encounter
--- OUTSIDE RECORDS SUMMARY | 2024-12-04 10:45 | XMS_ITS | Encounter Summary ---
Author Organization [employer] Address [address] 7t [place] [address] Care Team Providers Care Abstract Manager Name Role Phone Toro Silva MD Primary Care Prov ider Name, Oz CARLTON Primary Care Provider [phone] Encounter Details Date Type Department Care Team (Late st Contact Info) Description 04/21/2024 Telephone [facility] MEDICINE [address] [place] [address] Toro Silva MD [address] [place], [place] [phone] Social History Tobacco Use Types Packs/Day Years [...] Description 01/25/2025 11:15 AM EST Office Visit [facility] MED[facility]INE [address] [place] [address] Oz Willard MD [address] [place] [address] documented as of this encounter Visit Diagnoses Not on filedocumented in this encounter Additional Health Concerns Assessment Noted Time PHQ-9 Depression Total Score: 11 023 9:53 AM EST documented as of this encounter Care Teams Abstract Manager Relationship Specialty Start Date End Date Toro iSlva MD [address] [place] [address] PCP - General Internal Medicine 07/09/19 10/30/24 Oz Willard MD [address] [place] [address] PCP - General Internal Medicine 10/31/24 Grazyna Alvarado Licensed Massage TherapistCollar Separator 08/06/23 Wing [facility] 04/24/24 documented as of this encounter
--- OUTSIDE RECORDS SUMMARY | 2024-12-04 10:45 | XMS_ITS | Encounter Summary ---
Demographics Address [address] [facility] [address] [place] [address] Mobile Phone Home Phone Preferred Language es Marital Status Hinduism Affiliation Unknown Race Other Race Ethnic Group Unknown Author Organization [employer] Address [address] [facility] 7t [place] [address] Care Team Providers Care Lamp Assembler Name Role Phone Toro Silva MD Primary Care Prov ider Name, Oz CARLTON Primary Care Provider [phone] Reason for Visit * Reason Onset Date Comments Hospital Follow-up 04/20/2024 Encounter Details Date Type Department Care Team ([facility] Contact Info) Description 04/20/2024 Telephone [facility] [address] [place], [place] [phone] Toro Silva MD [address] [place] [address] Hospital Follow-up Social History Tobacco Use Types [...] call regarding Prior message. Contact pt at [phone] * Telephone Encounter - Courtney Cortes - 04/20/2024 10:47 AM EDT TC from pt LENS FABRICATING MACHINE TENDER Tonya returning call to specialist wound care regarding HDF. Contact Tonya at [phone] documented in this encounter Plan of Treatment Upcoming Encounters Date Type Department Care Team (Late st Contact Info) Description 01/25/2025 11:15 AM EST Office Visit [facility] MEDICINE 230 [place] [address] Name, MD Oz [address] [place] [address] documented as of this encounter Visit Diagnoses Not on filedocumented in this encounter Additional Health Concerns Assessment Noted Time PHQ-9 Depression Total Score: 11 023 9:53 AM EST documented as of this encounter Care Teams Lamp Assembler Relationship Specialty Start Date End Date Toro Silva MD [address] [place] [address] PCP - General Internal Medicine 07/09/19 10/30/24 Name, MD Oz [address] [place] [address] PCP - General Internal Medicine 10/31/24 Grazyna Alvarado Property And Casualty Insurance AgentProperty Condition Assessor 08/06/23 [facility] 04/24/24 documented as of this encounter
--- OUTSIDE RECORDS SUMMARY | 2024-12-04 10:45 | XMS_ITS | Encounter Summary ---
Demographics Address [address] [facility] [address] [place] [address] Mobile Phone Home Phone Preferred Language es Marital Status Mormonism Affiliation Unknown Race Other Race Ethnic Group Unknown Author Organization [employer] Address [address] [facility] [address] 7[address] [place] [address] Care Team Providers Care Mobile Product Manager Name Role Phone Toro Silva MD Primary Care Prov ider Name, Oz CARLTON Primary Care Provider [phone] Reason for Visit * Reason Comments Med Refill Encounter Details Date Type Department Care Team ([facility] Contact Info) Description 09/29/2023 Refill [facility] [address] [place], [place] [phone] Sophy Rubi MD [address] [place] [address] Neuropathy Social History Tobacco Use Types Packs/Day [...] Office Visit [facility] MEDICINE [address] [place] [phone] Oz Willard MD [address] [place] [address] documented as of this encounter Visit Diagnoses Diagnosis Neuropathy Mononeuritis of unspecified site documented in this encounter Additional Health Concerns Assessment Noted Time PHQ-9 Depression Total Score: 11 023 9:53 AM EST documented as of this encounter Care Teams Mobile Product Manager Relationship Specialty Start Date End Date Toro Silva MD [address] [place] [address] PCP - General Internal Medicine 07/09/19 10/30/24 Oz Willard MD [address] [place] [address] PCP - General Internal Medicine 10/31/24 Grazyna Alvarado Surgical Instruments InspectorOverlay Plastician 08/06/23 Wing [facility] 04/24/24 documented as of this encounter
--- OUTSIDE RECORDS SUMMARY | 2024-12-04 10:45 | XMS_ITS | Encounter Summary ---
Author Organization [employer] Address [address] [facility] 7t [place] [address] Care Team Providers Care Auditing Coder Name Role Phone Toro Silva MD Primary Care Prov ider Name, Oz CARLTON Primary Care Provider [phone] Reason for Visit * Reason Onset Date Comments Med Refill 08/12/2022 Encounter Details Date Type Department Care Team ([facility] st Contact Info) Description 08/12/2022 Telephone [facility] [address] [place], [place] [phone] Toro Silva MD [address] [place] [address] Med Refill Social History Tobacco Use Types [...] Description 01/25/2025 11:15 AM EST Office Visit [facility] MEDICINE [address] [place] [address] Name, MD Oz [address] [place] [address] documented as of this encounter Visit Diagnoses Not on filedocumented in this encounter Additional Health Concerns Assessment Noted Time PHQ-9 Depression Total Score: 0 07/02/19 9:45 AM EDT documented as of this encounter Care Teams Auditing Coder Relationship Specialty Start Date End Date BravoToro Brandon MD [address] [place] [address] PCP - General Internal Medicine 07/09/19 10/30/24 NameOz MD [address] [place] [address] PCP - General Internal Medicine 10/31/24 Grazyna Alvarado Financial Aid AdministratorIndustrial Sales Engineer 08/06/23 Wing [facility] 04/24/24 documented as of this encounter
--- OUTSIDE RECORDS SUMMARY | 2024-12-04 10:45 | XMS_ITS | Encounter Summary ---
Demographics Address [address] [facility] [address] [place] [address] Mobile Phone Home Phone Preferred Language es Marital Status Latter-Day Affiliation Unknown Race Other Race Ethnic Group Unknown Author Organization [employer] Address [address] [facility] 7t [place] [address] Care Team Providers Care Small Wind Energy Installer Name Role Phone Toro Silva MD Primary Care Prov ider Name, Oz CARLTON Primary Care Provider [phone] Reason for Visit * Reason Onset Date Comments Med Refill 04/13/2022 Encounter Details Date Type Department Care Team ([facility] st Contact Info) Description 04/13/2022 Refill [facility] MED & PEDS [address] [place], [place] [phone] Toro Silva MD [address] [place] [address] Social History Tobacco Use Types Packs/Day Years [...] [employer]) 100 UNIT/ML pen Please sent to [facility] - [place], [place] - [address] documented in this encounter Plan of Treatment Upcoming Encounters Date Type Department Care Team (Late st Contact Info) Description 01/25/2025 11:15 AM EST Office Visit [facility] MEDICINE [address] [place] [address] Name, MD Oz [address] [place] [address] documented as of this encounter Visit Diagnoses Not on filedocumented in this encounter Care Teams Small Wind Energy Installer Relationship Specialty Start Date End Date Toro Silva MD [address] [place] [address] PCP - General Internal Medicine 07/09/19 10/30/24 Name, MD Oz [address] [place] [address] PCP - General Internal Medicine 10/31/24 Grazyna Alvarado Bit GathererPresident Financial Institution 08/06/23 Wing [facility] 04/24/24 documented as of this encounter
== END 2024-12-04 10:08 | disposition home or self-care (01) ==
LOC: HO.HPS 09:33
PROVIDERS: PCP Internal Medicine Geriatric Medicine; Referring Provider Internal Medicine; Visit Provider Internal Medicine Pulmonary Disease
DX: R06.09 Other forms of dyspnea (principal); Z91.09 Other allergy status, other than to drugs and biological substances
CPT/HCPCS: 99204

== ENCOUNTER 2024-12-04 09:32 | Outpatient (REF) | payer MEDICAID, SELFPAY ==
[2024-12-04 10:25] LABS: MANUAL DIFF FLAG NO
[2024-12-04 11:55] LABS: Hematocrit 37.8 % (42.0-52.0); Hemoglobin 12.3 g/dl (14.0-18.0); Imm Gran Abs Auto 0.10 X10*3/uL (0.00-0.03); Imm Gran Pct Auto 1.0 % (0.0-0.4); Lymphocytes Absolute Auto 2.1 X10*3/uL (1.2-4.9); Mean Corpuscular HGB Conc 32.5 g/dl (31.0-36.0); Mean Corpuscular Hemoglobin 28.7 pg (27.0-33.0); Mean Corpuscular Volume 88.3 fL (80.0-98.0); NRBC Abs Auto 0.000 X10*3/uL (0.0-0.012); NRBC Pct Auto 0.0 /100WBC (0.0-0.2); Platelet Count 276 X10*3/uL (160-400); Red Blood Count 4.28 X10*6/uL (4.60-5.80); White Blood Count 9.6 X10*3/uL (4.8-10.8)
[2024-12-06 17:27] LABS: Class Alternaria alternata 0; Class Aspergillus fumigatus 0; Class Bermuda Grass 2; Class Birch 4; Class Cat Dander 0; Class Cladosporium herbarum 0; Class Cockroach 0; Class Common Ragweed 0/1; Class Cottonwood 1; Class Derm. pterony 0; Class Dermatophagoides farinae 0; Class Dog Dander 1; Class Elm 2; Class Maple Box Elder 2; Class Mountain Cedar 2; Class Mouse Urine Protein 0; Class Mugwort 1; Class Oak 3; Class Penicillium crysogenum 0; Class Rough Pigweed 2; Class Sheep Sorrel 1; Class Sycamore 2; Class Timothy Grass 1; Class Walnut Tree 0/1; Class White Ash 1; Class White Mulberry 0/1; D002 - IgE D farinae <0.10 kU/L; E001 - IgE Cat Dander <0.10 kU/L; E005 - IgE Dog Dander 0.54 kU/L; G006 - IgE Timothy Grass 0.36 kU/L; I006-IgE Cockroach, German <0.10 kU/L; M002 - IgE Cladosporium herbar <0.10 kU/L; M003 - IgE Aspergillus fumigat <0.10 kU/L; M006 - IgE Alternaria alternat <0.10 kU/L; T001 IgE Maple/Box Elder 0.78 kU/L; T006 - IgE Cedar, Mountain 1.26 kU/L; T007 - IgE Oak, White 7.01 kU/L; T008 IgE Elm, American 1.74 kU/L; T010 - IgE Walnut 0.18 kU/L; T011 - IgE Maple Leaf Sycamore 0.84 kU/L; T014 - IgE Cottonwood 0.36 kU/L; T015 - IgE Ash, White 0.38 kU/L; T070 - IgE White Mulberry 0.16 kU/L; W001 - IgE Ragweed, Short 0.21 kU/L; W006 - IgE Mugwort 0.44 kU/L; W014 IgE Pigweed, Common 2.71 kU/L; W018 IgE Sheep Sorrel 0.41 kU/L
== END 2024-12-04 09:33 | disposition home or self-care (01) ==
LOC: HO.LAB 09:32
PROVIDERS: PCP Internal Medicine Geriatric Medicine; Referring Provider Internal Medicine; Visit Provider Internal Medicine Pulmonary Disease
DX: R06.09 Other forms of dyspnea (principal); Z91.09 Other allergy status, other than to drugs and biological substances; Z01.84 Encounter for antibody response examination
CPT/HCPCS: 36415; 82785; 85025; 86003; 99202

== ENCOUNTER 2024-12-05 13:19 | Outpatient (AMB) | payer MEDICAID, SELFPAY ==
--- NOTE | 2024-12-05 13:24 | MHC.AMDMED ---
Intake Intake Visit Reasons: 30 mins Managed Care Liaison Required: Yes Managed Care Liaison Language: Belgian Accompanied by: Spouse Allergies shellfish derived Allergy (Severe, Verified 12/04/24 09:40) SWOLLEN THROAT apple (Apple) Allergy (Intermediate, Verified 12/04/24 09:40) SWELLING egg (Egg) Allergy (Intermediate, Verified 12/04/24 09:40) HIVES influenza virus vaccine, specific (Influenza Virus Vacc,Specific) Allergy (Intermediate, Verified 12/04/24 09:40) SWELLING lisinopril (Lisinopril) Allergy (Intermediate, Verified 12/04/24 09:40) Itching Penicillins Allergy (Mild, Verified 12/04/24 09:40) RASH nifedipine (From Procardia) Allergy (Unknown, Verified 12/04/24 09:40) UNKNOWN HPI Comprehensive Diabetes Asmnt Most Recent Diabetes Results: Hemoglobin A1c 13.9 % 02/20/19 Microalb/Creat Ratio TNP ug/mg cr 02/20/19 Cholesterol, (<200) 106 mg/dL 12/15/23 HDL Cholesterol, (>40) 33 mg/dL L 12/15/23 Triglycerides, (<150) 141 mg/dL 12/15/23 Creatinine, (0.5-1.4) 1.46 mg/dL H 04/17/24 BUN, (9-16) 25 mg/dL H 04/17/24 Sodium, (135-145) 138 mmol/L 04/17/24 Potassium, (3.3-5.1) 4.1 mmol/L 04/17/24 Chloride, (96-108) 109 mmol/L H 04/17/24 Carbon Dioxide, (22-29) 20 mmol/L L 04/17/24 Calcium, (8.4-10.2) 8.5 mg/dL Δ 04/17/24 AST, (5-37) 38 U/L H 04/17/24 ALT, (0-40) 28 U/L 04/17/24 Total Protein, (6.5-8.0) 7.1 g/dL 04/17/24 Albumin, (3.5-5.0) 3.6 g/dL 04/17/24 [facility] Medical History Dysphagia Uncontrolled hypertension Benign skin lesion of cheek Pulmonary embolism Gastritis SUSY (acute kidney injury) Enteritis Epigastric pain Physical deconditioning SOB (shortness of breath) Colon cancer screening Uninodular goiter (nontoxic) Right knee pain Chronic pain Type 2 diabetes mellitus with polyneuropathy Upper abdominal pain H. pylori infection Obesity due to excess calories Blind right eye Goiter Cancer of eye Chronic kidney disease, stage 3 Hemiparesis affecting left side as late effect of cerebrovascular accident CHF (congestive heart failure) History of poliomyelitis GERD (gastroesophageal reflux disease) Morbid obesity Mood disorder Nasal polyps Angina of effort ARTEM (obstructive sleep apnea) Hemiplegia affecting dominant side Asthma Other pulmonary embolism and infarction Left ventricular hypertrophy Syncope Type 2 diabetes mellitus with hyperglycemia, with long-term current use of insulin Hyperlipidemia LDL goal <70 Essential hypertension Surgical History History of total knee arthroplasty Hx of colonoscopy History of excision of lesion (~09/09/23) History of carpal tunnel surgery History of right knee joint replacement History of esophagogastroduodenoscopy (EGD) History of cardiac catheterization Hx of knee surgery History of coronary artery stent placement Family History Father Stroke Brain cancer CVD (cardiovascular disease) Diabetes Mother Diabetes Social History Household Members: Other Household Members Other:: HELP DESK REPRESENTATIVE Housing: Apartment Are you a primary family member caretaker to a significant other at home: No Do you presently have visiting nurse or other home services: Yes (HELP DESK REPRESENTATIVE) Alcohol intake: never Patient Tobacco Use Status: Never used Tobacco Advance Directives Date on File: 11/08/20 service: No Assessment & Plan Assessment & Plan (1) Type 2 diabetes mellitus with hyperglycemia, with long-term current use of insulin: Code(s): E11.65 - Type 2 diabetes mellitus with hyperglycemia; Z79.4 - MCFP (current) use of insulin Plan: Diabetes self-management education and support participation record Assessment/scale: 1= needs instructed? 2= needs review? 3= comprehend keep point? 4= demonstrates understanding/ competent? NC= Not Covered Topics Learning Objective: Initial visit Initial or post srvc Initial or post srvc Initial or post srvc Initial or post srvc Initial or post srvc Post srvc Comments Pre Edu-assessment/plan Outcome or reassess Outcome or reassess Outcome or reassess Outcome or reassess Outcome or reassess Outcome or reassess Diabetes pathophysiology 1 3 Healthy eating 1 3 Being active 1 3 Taking medication 1 3 Monitoring glucose 2 3 Acute complication 1 3 Chronic complicated 1 3 Lifestyle and healthy coping 1 3 Diabetes distress in support 1 3 ?Diabetes pathophysiology: ?Defined diabetes med identify own type of diabetes; list 3 options for treating diabetes Healthy eating: ?Described effect of type, amount and ?timing of food on blood glucose; list 3 methods for planning meal Being active: ?State effect of exercise on blood glucose level Taking medication: ?State effect of diabetes medications on diabetes; name diabetes medications taking, action and side effects Monitoring glucose: ?Identify recommended blood glucose targets and personal target Acute complication: ?List symptoms and treatment of hyper and hypoglycemia, DKA, sick day guidelines and guidelines for severe weather or situations of crisis and diabetes supply manage Chronic complication: ?To find the relationship of blood glucose levels to long-term complications of diabetes in screening and preventative measures Lifestyle and healthy coping: ?Described lifestyle and healthy coping strategies to rule out diabetes self-management Diabetes to stress and support: ?Recognize Diabetes to stress and be able to identified support options Plan Learning objectives: The patient was provided with verbal and written education on the following topics as outlined below. The patient met all learning objectives and was able to verbalize understanding and provide teach back of education topics discussed . The patient was provided with the opportunity to ask questions and all questions were answered. Patient Assessment Assess patient education level/literacy/barriers patient's last A1c on 09/17/2024 7% Patient questions/concerns-Pt was referred to [facility] in [place]. He was unable to be seen there when he went for his appointment they did not have any Belgian-speaking interpreters. Patient has requested a new ophthalmology referral to an office with sueding and buffing machine operator services. In addition patient has also asked for a referral to Podiatry. Message sent to provider Pt will f/u with DM ed as needed Exercise Medical clearance Effect of exercise on blood sugar Start slowly and gradually increase pace/duration over time Goal amount of exercise Checking blood glucose/have a source of carbs with you Diabetes Complications: ?Nephropathy :Kidney Disease ?diabetes can damage the kidneys, which is not only can cause them to fail but can make them lose their ability to filter waste from the blood? ?Retinopathy: Eye complications ?Retinopathy? is the commonest long-term complication of diabetes. It is leading cause of blindness Besides, Retinopathy-People with diabetes? are also prone to cataract and Glaucoma. ?Neuropathy: Nerve damage -It involves temporary or permanent damage to nerve tissue. Nerve tissue gets injured mainly due to decreased blood flow and rise in blood glucose levels. This damage can lead to pain , or loss of sensation it can also include sexual dysfunction in both men and women ? Infections poor healing: People with diabetes? have increased susceptibility to various infections, such as? pneumonias, pyelonephritis, carbuncles and diabetic ulcers. This may be due to poor blood supply, reduced cellular immunity or hyperglycemia. ?Heart Disease And Stroke: People with diabetes are four times more prone to develop Heart disease than those who do not have diabetes ?Depression: Feeling down once in awhile is normal, but some people feel sadness that just won't go away. Life for them seems hopeless. Feeling this way most of the day for two weeks or more is a sign of serious depression ?Gum Disease: People get gum disease when plaque destroys the gums and bone around the teeth. People with diabetes can get gum disease from having high blood glucose levels for a long time Lifestyle Work Travel Stress management Problem solving Know your goals A1C Blood sugar targets Blood pressure Cholesterol/LDL Urine microalbumin Smart Goal Assessment: Pt met goal 100% Pt met goal 75% Pt met goal 50% Pt met goal 25% Pt met goal less than 25% New Goal:? Educational Materials: The patient was provided with the following written educational materials: ADCES 7 Healthy Behaviors Reducing Risks handout Patient Response to instructions: Comprehension of Instructions: Readiness to make changes: a How confident they feel about making changes: Letter of completion of diabetes Education program will be sent to referring provider Portions of this note were created using voice recognition software, please excuse any words or phrases that may have been misinterpreted. Include regular daily activity. ADA recommends 30 minutes of exercise 5 days a week. Weight loss talk to PCP or Beading Machine Operator before starting new plan. Test blood sugar as directed; Fasting and 2hpp largest meal. Watch trends in results. Utilize results and to assess how food, physical activity and medications affect blood sugar results. Bring glucometer or CGM to next visit. Be knowledgeable about diabetes medication, its action, side effects, efficacy, toxicity, prescribed dosage, appropriate timing and frequency of administration, effect of missed and delayed doses and instructions for storage, travel and safety. Problem solving techniques to monitor hypo/hyperglycemia episodes and treatments. Reduce risk reduction behaviors, smoking cessation, regular eye, foot and dental examinations. I Patient Instructions: Incluir actividad diaria regular. ADA recomienda 30 minutos de ejercicio 5 d?as a la semana. P?rdida de peso, hable con el PCP o el cardi?logo antes de comenzar un nuevo plan. Mida el nivel de az?car en la melissa seg?n las indicaciones; Ayuno y comida m?s anna de 2hpp. Observe las tendencias en los resultados. Utilice los resultados y eval?e c?mo los alimentos, la actividad f?mikey y los medicamentos afectan los resultados de az?car en la melissa. Lleve el gluc?metro o CGM a la pr?xima visita. Conocer los medicamentos para la diabetes, delgado acci?n, los efectos secundarios, la eficacia, la toxicidad, la dosis prescrita, el momento y la frecuencia de administraci?n apropiados, el efecto de las dosis olvidadas y retrasadas y las instrucciones de almacenamiento, viaje y seguridad. T?cnicas de resoluci?n de problemas para el seguimiento de episodios de hipo/hiperglucemia y tratamientos. Reducir los comportamientos de reducci?n de riesgos, dejar de fumar, ex?menes regulares de ojos, pies y dentales. Coding Level of Care Code Est Pt Level 1 (42057) Diagnoses Type 2 diabetes mellitus with hyperglycemia, with long-term current use of insulin E11.65; Z79.4
--- OUTSIDE RECORDS SUMMARY | 2024-12-05 17:06 | XMS_ITS | Encounter Summary ---
Demographics Address [address] [place] [address] Mobile Phone Home Phone Work Phone Preferred Language Yoruba; Castilian Marital Status Hinduism Affiliation Unknown Race Other Race Ethnic Group or Author Organization [facility] Address [address] [place] [address] Phone Care Team Providers Care Shotgun Shell Assembly Machine Operator Name Role Phone Christina Nelson MD Primary Care Provider [phone] Toro Silva MD Primary Care Prov ider [facility] Primary Care Provider Encounter Details Date Type Department Care Team (Late st Contact Info) Description 06/22/2019 Procedure Pass [facility] - MRI, [facility] [address] [place] [address] Social History Tobacco Use Types Packs/Day Years [...] on filedocumented in this encounter Care Teams Shotgun Shell Assembly Machine Operator Relationship Specialty Start Date End Date Christina Nelson MD [address] [place] [address] PCP - General Family Medicine 02/03/19 09/17/20 Toro Silva MD [address] [place] [address] PCP - General Internal Medicine 09/18/20 [facility]04[facility] [address] [place] [address] PCP - General 03/05/21 documented as of this encounter Additional Source Comments The information contained in this document represents components of the legal health record. It is not the complete legal health record.[facility]
--- OUTSIDE RECORDS SUMMARY | 2024-12-05 17:06 | XMS_ITS | Clinical Summary ---
Demographics Address [address] [place] [address] [address] [place] [address] Home Phone Home Phone Preferred Language es Marital Status Unknown Islam Affiliation Unknown Race Unknown Ethnic Group Unknown Author Organization [facility], Address [address] [place] [address] [place] [address] Phone Care Team Providers Care Senior Analyst Name Role Phone Toro Bravo Primary Care [...] 0 Active ergocalciferol (VITAMIN D-2) 1.25 MG (19310 UT) capsule TAKE 1 CAPSULE BY MOUTH [...] to complete this topic Insurance [address] [place] [address] Medicaid [place] [address] [place] [address] * Guarantor: Davon Gonzalez Account Type Relation to Patient Date of Phone Billing Address Personal/Family Self 1965 [address] [place] [address] Care Teams Senior Analyst Relationship Specialty Start Date End Date Toro Bravo PCP - General Internal Medicine 09/06/19
--- OUTSIDE RECORDS SUMMARY | 2024-12-05 17:06 | XMS_ITS | Encounter Summary ---
Demographics Address [address] [place] [address] Mobile Phone Home Phone Work Phone Preferred Language Amharic; Castilian Marital Status Sikh Affiliation Unknown Race Other Race Ethnic Group or Author Organization [facility] Address [address] [place] [address] Phone Care Team Providers Care Honey Grader And Blender Name Role Phone Christina Nelson MD Primary Care Provider [phone] Toro Silva MD Primary Care Prov ider [facility] Primary Care Provider Encounter Details Date Type Department Care Team (Late st Contact Info) Description 06/22/2019 Procedure Pass [facility] Imaging - MRI, [facility] [place] [address] [place] [address] Social History Tobacco Use Types Packs/Day Years [...] on filedocumented in this encounter Care Teams Honey Grader And Blender Relationship Specialty Start Date End Date Christina Nelson MD [address] [place] [address] PCP - General Family Medicine 02/03/19 09/17/20 Toro Silva MD [address] [place] [address] PCP - General Internal Medicine 09/18/20 [facility]04[facility] [address] [place] [address] PCP - General 03/05/21 documented as of this encounter Additional Source Comments The information contained in this document represents components of the legal health record. It is not the complete legal health record.[facility]
--- OUTSIDE RECORDS SUMMARY | 2024-12-05 17:06 | XMS_ITS | Clinical Summary ---
Demographics Address [address] [place] [address] Mobile Phone Home Phone Work Phone Preferred Language Greek; Castilian Marital Status Denominational Affiliation Unknown Race Other Race Ethnic Group or Author Organization [facility] Address [address] [place] [address] Phone Care Team Providers Care Fishing Reel Assembler Name Role Phone [facility], [facility] Primary Care Provider Allergies Active Allergy [...] EDT) CREATININE 1.91(H) 0.6 - 1.5 mg/dL [facility] EGFR 39(L) >59 mL/min/1. 73m2 [facility] Comment:Estimated glomerular filtration rate calculated using the CKD-EPI equation. 08/17/2019 1:14 PM EDT 08/17/2019 2:33 PM EDT Isabel Forrest MD LAB BLOOD ORDERABLES [place] [address], [facility] from Last 3 Months or Most Recently Relevant to Health Maintenance Insurance [address] [place] [address] [place] [address] [employer] [place] [id number] C3 ACO [facility] C3 ACO Care Teams Fishing Reel Assembler Relationship Specialty Start Date End Date [facility] [address] [place] [address] PCP - General 03/05/21 Additional Source Comments The information contained in this document represents components of the legal health record. It is not the complete legal health record.[facility]
--- OUTSIDE RECORDS SUMMARY | 2024-12-05 17:06 | XMS_ITS | Encounter Summary ---
Demographics Address [address] [place] [address] Mobile Phone Home Phone Work Phone Preferred Language Chinese; Castilian Marital Status Gnosticism Affiliation Unknown Race Other Race Ethnic Group or Author Organization [facility] Address [address] [place] [address] Phone Care Team Providers Care Ged Teacher Name Role Phone Christina Nelson MD Primary Care Provider [phone]- [phone] Toro Silva MD Primary Care Prov ider [facility] Primary Care Provider Encounter Details Date Type Department Care Team (Late st Contact Info) Description 07/12/2019 Procedure Pass [facility] Imaging - [facility] [place] [address] [place] [address] Social History Tobacco Use Types Packs/Day Years [...] on filedocumented in this encounter Care Teams Ged Teacher Relationship Specialty Start Date End Date Christina Nelson MD [address] [address] [place] [address] PCP - General Family Medicine 02/03/19 09/17/20 Toro Silva MD [address] [place] [address] PCP - General Internal Medicine 09/18/20 03/04/21 [facility] [address] [place] [address] PCP - General 03/05/21 documented as of this encounter Additional Source Comments The information contained in this document represents components of the legal health record. It is not the complete legal health record.[facility]
== END 2024-12-05 13:56 | disposition home or self-care (01) ==
LOC: HO.ENCR 13:20
PROVIDERS: PCP Internal Medicine; Visit Provider Registered Nurse Diabetes Educator
DX: E11.65 Type 2 diabetes mellitus with hyperglycemia (principal); Z79.4 Long term (current) use of insulin

== ENCOUNTER → 2024-12-05 13:19 | Outpatient (BNVA) | payer MEDICAID, SELFPAY | PROVIDERS: PCP Internal Medicine; Visit Provider Registered Nurse Diabetes Educator | DX: E11.65 Type 2 diabetes mellitus with hyperglycemia (principal); E11.42 Type 2 diabetes mellitus with diabetic polyneuropathy; Z79.4 Long term (current) use of insulin | CPT/HCPCS: 99211 ==

== ENCOUNTER 2025-01-15 08:47 | Outpatient (REF) | payer MEDICAID, SELFPAY ==
[2025-01-15 11:40] LABS: MANUAL DIFF FLAG NO
[2025-01-15 11:48] LABS: Hematocrit 37.3 % (42.0-52.0); Hemoglobin 11.9 g/dl (14.0-18.0); Imm Gran Abs Auto 0.02 X10*3/uL (0.00-0.03); Imm Gran Pct Auto 0.2 % (0.0-0.4); Lymphocytes Absolute Auto 2.9 X10*3/uL (1.2-4.9); Mean Corpuscular HGB Conc 31.9 g/dl (31.0-36.0); Mean Corpuscular Hemoglobin 28.5 pg (27.0-33.0); Mean Corpuscular Volume 89.4 fL (80.0-98.0); NRBC Abs Auto 0.000 X10*3/uL (0.0-0.012); NRBC Pct Auto 0.0 /100WBC (0.0-0.2); Platelet Count 264 X10*3/uL (160-400); Red Blood Count 4.17 X10*6/uL (4.60-5.80); White Blood Count 9.8 X10*3/uL (4.8-10.8)
[2025-01-15 12:15] LABS: Microalbum/Creatinine Ratio Ur 4.4 ug/mg cr (<30)
[2025-01-15 12:22] LABS: Alanine Aminotransferase 26 U/L (0-40); Albumin Level 4.4 g/dL (3.5-5.0); Alkaline Phosphatase 92 U/L (39-117); Anion Gap 12 (12-20); Aspartate Amino Transferase 26 U/L (5-37); Blood Urea Nitrogen 33 mg/dL (9-16); Calcium 9.3 mg/dL (8.4-10.2); Carbon Dioxide 28 mmol/L (22-29); Chloride 106 mmol/L (96-108); Cholesterol 213 mg/dL (<200); Estimated Glomerular Filt Rate 36; HDL Cholesterol 36 mg/dL (>40); Iron 72 mcg/dL (45-160); Percent Iron Saturation 31 % (15-50); Potassium 4.2 mmol/L (3.3-5.1); Sodium 142 mmol/L (135-145); Total Iron Binding Capacity 236 mcg/dL (228-428); Total Protein 7.9 g/dL (6.5-8.0); Triglycerides 136 mg/dL (<150); Unsaturated Iron Binding 164 ug/dL
== END 2025-01-15 08:48 | disposition home or self-care (01) ==
LOC: HO.HHCL 08:47
PROVIDERS: Internal Medicine; PCP Internal Medicine Geriatric Medicine; Visit Provider Internal Medicine Geriatric Medicine
DX: E11.22 Type 2 diabetes mellitus with diabetic chronic kidney disease (principal); N18.32 Chronic kidney disease, stage 3b; E11.42 Type 2 diabetes mellitus with diabetic polyneuropathy; D50.8 Other iron deficiency anemias; M25.561 Pain in right knee; G89.29 Other chronic pain; Z79.4 Long term (current) use of insulin
CPT/HCPCS: 36415; 80053; 80061; 82043; 82570; 83036; 83540; 85025